=== PATIENT | female | born 1935 | race Caucasian/White ===

== ENCOUNTER 2019-02-26 19:54 | IRF | payer MEDICARE, OTHER, SELFPAY ==
--- NOTE | ~2019-02-26 | XR_ITS ---
XR chest 2V DATE: 03/13/2019 15:49 INDICATION: Cough. Confusion. TECHNIQUE: AP and lateral views COMPARISON: 02/25/2019 AP and lateral chest FINDINGS: Cardiomegaly. There is aortic calcification and mild unfolding. There are bibasilar infiltrates and/or atelectasis, right greater than left. There is mild elevation of the right leaf of the diaphragm. There is minimal if any pleural effusion. There is vertebra plan of a thoracolumbar vertebra with associated prominent callus. There is diffuse osteopenia. There are degenerative changes of the thoracic and lumbar spine. IMPRESSION: Bibasilar infiltrate and/atelectasis, right greater than left; there is improvement on th e left since 02/25/2019 Cardiomegaly Aortic atherosclerosis Reviewed, dictated and finalized at location B. CALENDER IMPRESSION: Bibasilar infiltrate and/atelectasis, right greater than left; ther e is improvement on the left since 02/25/2019 Cardiomegaly Aortic atherosclerosis
--- NOTE | ~2019-02-26 | XR_ITS ---
EXAMINATION: XR chest 2V DATE: 03/14/2019 14:59 INDICATION: Shortness of breath. TECHNIQUE: Frontal and lateral views of the chest were obtained. COMPARISON: Chest 2 views 03/13/2019 FINDINGS: The patient is rotated to her right. There are airspace opacities in the lower lung zones. No pleural effusion or pneumothorax. Cardiomegaly is noted. Surgical clips in the right upper quadran t are likely from cholecystectomy. There is a chronic compression fracture in lumbar spine. IMPRESSION: 1. Stable airspace opacities in the lower lung zones, consistent with atelectasis versus pneumonia. 2. Cardiomegaly. Reviewed, dictated and finalized at location A. O ELECTRONICS TECHNICIAN IMPRESSION: 1. Stable airspace opacities in the lower lung zones, consistent with atelectas is versus pneumonia. 2. Cardiomegaly.
[2019-02-26 17:50] VITALS: BP 112/56; PULSE 89; RESP 20; TEMP 36.5; O2SAT 96
[2019-02-26 18:52] VITALS: BMI 40.8
--- NOTE | 2019-02-26 19:07 | ADMGEN ---
This patient, Radha Salmeron, was admitted to [facility] Room 223-01. Patient/family oriented to hospital policies and general routines including ID bracelet, bed and alarms, visiting hours, pain management, procedures, bathroom and other care routines, personal items, smoking policy, room service/diet, and visiting hours. Valuables list has been completed. Information on how to activate the Rapid Response Team has been discussed. Patient/Family are encouraged to report perceived risks to care and to ask questions if they do not understand what they are told or what they should do.
[2019-02-26 20:45] VITALS: PULSE 89
[2019-02-26] MEDS: DOCUSATE SODIUM 100 MG CAPSULE PO (20:45)
[2019-02-26] MEDS: METOPROLOL TARTRATE 50 MG TAB 100 MG PO (20:45)
[2019-02-26] MEDS: ACETAMINOPHEN 325 MG TABLET PO (20:49)
[2019-02-26 21:21] VITALS: BP 111/62; PULSE 76; RESP 20; TEMP 36.6; O2SAT 96
[2019-02-26] MEDS: AMPICILLIN TRIHYDRATE 500 MG CAPSULE PO (21:52)
[2019-02-26 21:58] VITALS: PULSE 86; RESP 18
[2019-02-26 21:59] VITALS: PULSE 86; RESP 18; O2SAT 97
[2019-02-26] MEDS: ALBUTEROL SULFATE NEB 2.5 MG/0.5 ML INH 5 MG INHALATION (22:07)
[2019-02-26] MEDS: IPRATROPIUM BR 0.02% INH SOLN 0.5 MG/2.5 ML VIAL INHALATION (22:07)
[2019-02-27] VITALS (11 sets, daily range): BP systolic 122–127; BP diastolic 55–60; PULSE 76–101; RESP 16–20; TEMP 36.1–36.6; O2SAT 95–98; BMI 40.8
[2019-02-27] MEDS: ACETAMINOPHEN 325 MG TABLET PO ×2 (01:44→21:45)
[2019-02-27] MEDS: IPRATROPIUM BR 0.02% INH SOLN 0.5 MG/2.5 ML VIAL INHALATION ×3 (03:42→22:02)
[2019-02-27] MEDS: ALBUTEROL SULFATE NEB 2.5 MG/0.5 ML INH 5 MG INHALATION ×3 (03:42→22:03)
[2019-02-27 04:59] LABS: Basophils Percent Auto 0.3 % (0.2-1.2); Eosinophils Absolute Auto 0.4 K/mm3 (0-0.3); Eosinophils Percent Auto 4.1 % (0-4.4); Hematocrit 26.4 % (37.0-47.0); Hemoglobin 7.2 g/dL (12.0-15.0); Immature Granulocyte Absolute 0.03 K/mm3 (0.00-0.031); Immature Granulocyte Percent A 0.3 % (0-0.5); Lymphocytes Absolute Auto 1.82 K/mm3 (0.9-3.2); Lymphocytes Percent Auto 19.6 % (18.3-44.2); Mean Corpuscular HGB Conc 27.3 g/dl (32-36); Mean Corpuscular Hemoglobin 17.2 pg (26-34); Mean Corpuscular Volume 63.2 fl (80-100); Mean Platelet Volume 9.2 fl (7.4-10.4); Monocytes Absolute Auto 1.4 K/mm3 (0.1-0.6); Monocytes Percent Auto 15.3 % (2.6-8.5); Neutrophils Absolute Auto 5.6 K/mm3 (1.3-6.7); Neutrophils Percent Auto 60.4 % (45.5-73.1); Nucleated Red Blood Cells Absolute Auto 0.1 K/mm3 (0.0-0.012); Nucleated Red Blood Cells Perc 1.1 % (0.0-0.2); Platelet Count Result 168 k/mm3 (150-375); Red Blood Count 4.18 M/mm3 (4.2-5.4); Red Cell Distribution Width 21.5 % (11.5-14.5); White Blood Count 9.3 K/mm3 (4.5-10.0)
[2019-02-27 05:10] LABS: Blood Urea Nitrogen 46 mg/dL (7-17); Calcium 8.6 mg/dL (8.4-10.2); Carbon Dioxide 29 mmol/L (22-30); Chloride 91 mmol/L (98-107); Estimated CRCL calculation 29 ml/min; Estimated Glomerular Filt Rate 33; Glucose 151 mg/dL (65-105); Sodium 128 mmol/L (137-145)
[2019-02-27 05:11] LABS: Magnesium 1.5 mg/dL (1.6-2.3)
[2019-02-27 05:26] LABS: Platelet Estimate Adequate (Adequate)
[2019-02-27 05:27] LABS: Hypochromasia 2+ (NORMAL); Large Platelets Present; Ovalocytes 1+ (NORMAL)
[2019-02-27 06:53] LABS: Glucose Point of Care 135 (65-105)
[2019-02-27] MEDS: APIXABAN 5 MG TABLET PO ×2 (09:45→17:27)
[2019-02-27] MEDS: AMPICILLIN TRIHYDRATE 500 MG CAPSULE PO ×4 (09:45→21:39)
[2019-02-27] MEDS: DOCUSATE SODIUM 100 MG CAPSULE PO ×2 (09:47→21:39)
[2019-02-27] MEDS: ASPIRIN 81 MG ENTERIC TABLET PO (09:47)
[2019-02-27] MEDS: FUROSEMIDE 40 MG TABLET PO ×2 (09:48→17:27)
[2019-02-27] MEDS: INSULIN GLARGINE (*BKC) 100 UNITS/ML 10 UNITS SUB-Q (09:49)
[2019-02-27] MEDS: METOPROLOL TARTRATE 50 MG TAB 100 MG PO ×2 (09:50→21:39)
[2019-02-27] MEDS: PANTOPRAZOLE 40 MG TABLET PO (09:50)
[2019-02-27] MEDS: LORATADINE 10 MG TABLET PO (09:50)
[2019-02-27] MEDS: TOLNAFTATE 1% POWDER 45 GM BTL 1 APPLIC TOPICAL ×2 (09:51→17:28)
[2019-02-27] MEDS: POTASSIUM CHLORIDE 10 MEQ TABLET.ER 40 MEQ PO ×3 (10:41→17:28)
--- NOTE | 2019-02-27 11:47 | PCNSR ---
On 02/27/19, the student, Felicita Thompson, provided care and completed [facility] documentation on this patient. I have reviewed the student's documentation and agree with the findings.
[2019-02-27] MEDS: INSULIN ASPART (*BKC) 100 UNITS/ML SUB-Q (12:12)
[2019-02-27 12:13] LABS: Glucose Point of Care 205 (65-105)
--- NOTE | 2019-02-27 13:54 | RPD ---
INDIVIDUALIZED PLAN OF CARE FOR Radha Salmeron Brief Synthesis of Pre-Admission Screen, Post-Admission Evaluation and Therapy Evaluations: The patient presents to rehab with severe sepsis with septic shock. Comorbidities include leukocytosis, anemia, CKD, CARLY, septic shock, UTI, acute on chronic renal failure, acute hyperkalemia, atrial fibrillation with slow ventricular response, left ear impacted cerumen, cough, severe sepsis, GERD, hypertensive hear disease with heart failure, DMII, over active bladder, cardiomegaly, lactic acidosis, bradycardia, dehydration, hematuria.The patient requires physician services for neurology services, medical oversight, and coordination of care. The patient needs physician monitoring and treatment of acute kidney failure, hyperglycemia, hypertension, hematuria, bradycardia, CHF, atrial fibrillation with slow ventricular response, severe hyperkalemia, urinary retention, anemia, monitoring for adverse reactions to new medications, monitoring of infection, and pain control. The patient requires nursing services for frequent neuro checks, anticoagulation therapy, medication management and education, pressure relief and skin care management, monitoring of labs, bowel and bladder training, diabetes management and education, and fall/safety precautions Deficits include:ADLs, Balance, Endurance, Family Training/Education, Mobility, Pain Management, ROM, Safety, Strength, and Transfers Railroad Purchasing Agent/Case Management for: Discharge Planning and Patient/Family Counseling Physical Therapy: 5 days per week for 90 minutes. Treatments may include: Therapeutic Exercise, Gait Training, Neuromuscular Re-education, Transfer Training, Community Reintegration, Bed Mobility, Patient/Family Education, Wheelchair Mobility Group Therapy/Concurrent Therapy Rationales: -Improve attention span during functional activities in a distracted environment. -Enhance problem solving and/or adequate judgment skills during functional activities in a distracted environment. -Promote increased safety awareness in a distracted environment to reduce fall risk with functional tasks, transfers, and ambulation to allow a more safe, self-sufficient return to the home environment. -Improve dynamic balance skills to promote safety and independence with functional activities in a distracted environment for maximum gain. Occupational Therapy: 5 days per week for 90 minutes. Treatments may include: Therapeutic Exercise, Therapeutic Activity, Cognitive Training, Self-Care Transfer Training, Community Reintegration, Home Management, Patient/Family Education, Wheelchair Mobility Training, Energy Conservation Training Group Therapy/Concurrent Therapy Rationales: -Allow therapist to observe and teach generalization and carry-over of skills learned in individual therapy. -Enhance problem solving and sequencing skills during therapeutic activities in a distracted environment. -Promote increased safety awareness in a realistic setting to reduce fall risk with functional tasks due to visual and verbal distractions. -Increase functional level with ADLs, ADL transfers and use of adaptive equipment through therapeutic activities with others while promoting safety to allow a more safe, self-sufficient return home. Medical Prognosis: Good Anticipated Length of Stay: 10 days Rehab Goals: Eating Goal: 06-Independent Oral Hygiene Goal: 06-Independent Toileting Hygiene Goal: 06-Independent Shower/Bathe Self Goal: 04-Supervision or Touching Assistance Upper Body Dressing Goal: 06-Independent Lower Body Dressing Goal: 06-Independent Putting On/Taking Off Footwear Goal: 06-Independent Rolling Left and Right Goal: 06-Independent Sit to Lying Goal: 06-Independent Lying to Sitting on Side of Bed Goal: 06-Independent Sit to Stand Goal: 06-Independent Chair/[id number] Transfer Goal: 06-Independent Toilet Transfer Goal: 06-Independent Car Transfer Goal: 06-Independent Walk 10' Goal: 06-Indep
--- NOTE | 2019-02-27 15:13 | REHAB_ITS ---
DATE OF SERVICE: 02/27/2019 The patient's primary rehab impairment category is miscellaneous with etiological diagnosis of severe sepsis with septic shock. The patient was seen [id number] on 02/27/2019, at 8:30 am. HISTORY OF PRESENT ILLNESS: 83 years old right-handed female with the past medical history of 1. Right-sided congestive heart failure. 2. Valvular disease. 3. Chronic kidney disease. Presented to [facility] on February 20 with the complaints of weakness, generalized body aches, and cough. She was recently admitted in mid January for pneumonia and was discharged to [place] for rehab. She normally lives in the independent living at [place]. The patient's family reported a couple of days prior to this admission, the patient's cough worsened. She had a chest x-ray. There was also confusion with her potassium supplement and she was receiving 160 mEq twice a day. Upon admission, the patient's potassium was 7.3. Chest x-ray demonstrated persistent diffuse interstitial pattern in the lungs consistent with mild pulmonary edema versus chronic interstitial lung disease. Repeat chest x-ray on February 21 revealed worsened diffuse lung disease consistent with pulmonary edema and atelectasis versus pneumonia. The patient was admitted to ICU with severe sepsis and started on IV ceftriaxone and azithromycin. Cruise Consultant was consulted that held her diltiazem and metoprolol. Asbestos Shingle Roofer was consulted who ordered the renal ultrasound, it was negative for any abnormality. Her metoprolol was started on February 21 and she will be increased to have her home dose. On February 21, the patient passed for modified barium swallow and was on regular diabetic diet with thin liquids. Renal ultrasound revealed normal kidney sizes, but no hydronephrosis. Urine culture grew enterococcus and vancomycin was added. MRSA culture was negative. Blood cultures were negative x2. On February 22, IV antibiotics were changed to ampicillin, but will be transitioned to oral antibiotics to complete the treatment. The patient has obstructive sleep apnea, but was unable to wear CPAP due to claustrophobia. She used 2 L of oxygen at night per nasal cannula instead of CPAP. On 02/24/2019, her diuretics were restarted because of edema and pleural effusion. She was also placed on increased dose of potassium chloride temporarily, with readjustment as needed due to severe hyperkalemia. Cardiology recommended a strict monitoring of intake, output, BMP, and magnesium. Urine catheter was removed on 02/13/2019 but had to be reinserted that evening due to retention. Plan for voiding trial on TR. Creatinine remained stable, now at her baseline of 1.60. Medical complication included acute kidney failure, hyperglycemia, hypertension, hematuria, bradycardia, congestive heart failure, atrial fibrillation with slow ventricular response, severe hyperkalemia, urinary retention, and anemia. She was discharged to rehab on Eliquis and aspirin for DVT prophylaxis. Therapy was initiated at the Acute Care Facility and patient was transferred to us from [facility] on 02/26/2019. Surgery or fall: The patient has had no major surgery in the 100 days prior to admission. She has had falls in the past year, but has falls with injury in the past year as well. PAST MEDICAL HISTORY: Anxiety, chronic kidney disease, congestive heart failure, type 2 diabetes mellitus, DVT, GERD, hypertension, macular degeneration, peripheral neuropathy, pneumonia, obstructive sleep apnea, TIA, venous stasis ulcer. PAST SURGICAL HISTORY: Cholecystectomy, hysterectomy. SOCIAL HISTORY: The patient is , lives alone in [facility]. FAMILY HISTORY: Mother respiratory disorder at age 21. Father, cardiovascular disease.
--- NOTE | 2019-02-27 15:14 | REHAB_ITS ---
DATE OF SERVICE: The patient's primary rehab impairment category is miscellaneous with etiological diagnosis of severe sepsis with septic shock. HISTORY OF PRESENT ILLNESS: This 83 years old right-handed female with past medical history of right-sided congestive heart failure, valvular disease, chronic kidney disease, presented to [facility] on February 20, 2019, with the complaints of weakness, generalized body aches and cough. She was recently admitted in mid January for pneumonia and was discharged to [place] for the rehab. She normally lives in the independent living at [place]. The patient's family reported a couple of days prior to this particular admission, the patient's cough worsened and she had a chest x-ray at that particular time. There was also confusion about a potassium supplement, as she was receiving 160 mEq twice a day. Upon admission, her potassium was 7.3. Chest x-ray demonstrated persistent diffuse interstitial patterns in the lungs consistent with a mild pulmonary edema versus chronic interstitial lung disease. Repeat chest x-ray on February 21, documented worsening of the diffuse lung disease consistent with pulmonary edema and atelectasis versus pneumonia. The patient was admitted to intensive care unit with severe sepsis, started on IV ceftriaxone and azithromycin. Cardiologists were consulted and diltiazem was withheld along with the metoprolol. Informatics Pharmacist ordered a renal ultrasound, which was negative for any gross abnormality. Her metoprolol was restarted on February 21, and was intended to be increased to her home dose. On February 21, the patient passed her modified barium swallow and was placed on regular diabetic diet with thin liquids. Renal ultrasound revealed normal kidney size with no hydronephrosis. Urine culture grew enterococcus for that reason, vancomycin was added. MRSA culture was negative. Blood cultures were negative x2. On February 22, IV antibiotics were changed to ampicillin, but will be transitioned to oral antibiotics to complete her treatment course. The patient has obstructive sleep apnea, but was unable to wear CPAP due to claustrophobia. She uses 2 L of oxygen at night per nasal cannula instead of the CPAP. On February 24, 2019, her diuretic was restarted because of edema and pleural effusion. She was placed on increased dose of potassium chloride temporarily with readjustment as needed due to severe hyperkalemia. Cardiology recommended strict monitoring of intake, output, BMP, and magnesium. Urinary catheter was removed on February 23, 2019, but had to be reinserted that evening due to retention. Plan for a voiding trial in [facility], creatinine remained stable now at her baseline of 1.60. Medical complication included acute kidney failure, hyperglycemia, hypertension, hematuria, bradycardia, congestive heart failure, atrial fibrillation with slow ventricular response, severe hyperkalemia, urinary retention, anemia, and she was discharged to rehab on Eliquis and aspirin for DVT prophylaxis. Therapy was initiated on the acute care facility and the patient was transferred to us from [facility] on February 26, 2019. She has had no major surgeries in the last 100 days prior to admission. She has had falls in the past year and she had a fall with injury in the past year as well. PAST MEDICAL HISTORY: Anxiety, chronic kidney disease, congestive heart failure, type 2 diabetes mellitus, DVT, GERD, hypertension, macular degeneration, peripheral neuropathy, pneumonia, obstructive sleep apnea, TIA, and venous stasis ulcer. PAST SURGICAL HISTORY: Cholecystectomy and hysterectomy. SOCIAL HISTORY: She is , [place] alone in [place] apartment, [place]. FAMILY HISTORY: Mother, respiratory disorder at age 20. Father, cardiovascul
[2019-02-27 17:01] LABS: Glucose Point of Care 198 (65-105)
--- NOTE | 2019-02-27 17:11 | PM.PNCARD ---
Progress Note: A&P Assessment and Plan (1) Hypokalemia: Code(s): E87.6 - Hypokalemia Status: Acute Assessment and Plan: She was hyperkalemic on admission with renal failure. She is now hypokalemic with diuretics being restarted. Supplementing. Check BMP daily. Will supplement magnesium p.o.. If this does not correct her magnesium to approximately 2.0 and causes diarrhea will need to give her some IV magnesium. Check magnesium in the morning. (2) RIANA (acute kidney injury): Code(s): N17.9 - Acute kidney failure, unspecified Status: Acute Assessment and Plan: Renal function at baseline. Monitor daily with diuretics. Continue furosemide 40 mg b.i.d.. Metolazone 5 mg every 48 hours has been orded. This was her home dose. Closely monitory her renal function and fluid balance. (3) Atrial fibrillation: Code(s): I48.91 - Unspecified atrial fibrillation Status: Acute Assessment and Plan: Rate is controlled with Metoprolol 100 mg q.12 hours and diltiazem CD 120 mg daily. Anticoagulated with apixaban. (4) Congestive heart failure: Qualifiers: Heart failure type: diastolic Heart failure chronicity: chronic Qualified Code(s): I50.32 - Chronic diastolic (congestive) heart failure Code(s): I50.9 - Heart failure, unspecified Status: Acute Assessment and Plan: Chronic diastolic. Blood pressure at goal Cautious diuresis as above . Additional Plan Plan discussed with Dr Molina [id number] 02/27/2019 Subjective Date/time seen: 02/27/19 17:11 Interval history: Follow-up for: Bradycardia, hyperkalemia, CKD, debility diastolic heart failure atrial fibrillation Date of service: 02/27/2019 Subjective: Feeling okay today. No chest pain. Short of breath with exertional activities near baseline. Lightheaded with some activity but not all. No palpitations. Lower extremity edema. Difficulty keeping feet elevated. The recliner foot rest does not stay up. Review of Systems Constitutional: Constitutional: Reports fatigue and Reports weakness Eyes: Eyes: Denies blurry vision ENT: Reports Normal hearing present (Hard hearing), Denies epistaxis and Denies nasal discharge Cardiovascular: Cardiovascular: Denies chest pain, Reports pedal edema, Reports leg edema, Reports lightheadedness (Occasional) and Denies palpitations Respiratory: Respiratory: Denies cough, Reports dyspnea on exertion and Denies wheezing Gastrointestinal: Gastrointestinal: Denies abdominal pain, Denies nausea and Denies vomiting Genitourinary: Comments: Wilkerson catheter Musculoskeletal: Musculoskeletal: Denies back pain and Denies neck pain Integumentary/Breasts: Skin/Breast: Reports dry skin Neurologic: Reports abnormal gait (Related to weakness), Denies headache(s) and Denies numbness Psychiatric: Psychiatric: Denies anxiety Exam Const: General: comfortable and no acute distress Other: Up in chair HENMT: General nose exam: Normal nares present and no epistaxis Mouth: Yes moist mucous membranes Eyes: Sclera: sclerae normal Neck: Neck: supple Resp: Auscultation: diminished lung sounds bilateral in the lower lung gamble Cardio: Rate: regular rate Rhythm: abnormal rhythm Heart sounds: no murmurs Peripheral pulses: Peripheral pulses 2+ throughout GI: Inspection: obesity Auscultation: normal bowel sounds Urinary Catheter: Urinary Catheter: patent and draining and urine clear Skin: General skin exam: normal color and ecchymosis (Forearms) Neuro: Cognition (Neuro): normal cognition Speech: normal speech Extrem: Right lower extremity: edema (Legs are wrapped) Left lower extremity: edema (Legs are wrapped) Psych: Affect: normal affect Objective Data Vital Signs Vital Signs: Vital Signs - 24 hr 02/26/19 17:50
[2019-02-27] MEDS: MAGNESIUM OXIDE 400 MG TABLET PO (17:54)
[2019-02-28] VITALS (13 sets, daily range): BP systolic 124–126; BP diastolic 65–80; PULSE 82–97; RESP 16–20; TEMP 36.2–36.4; O2SAT 95–100
[2019-02-28] MEDS: IPRATROPIUM BR 0.02% INH SOLN 0.5 MG/2.5 ML VIAL INHALATION ×3 (03:24→19:30)
[2019-02-28] MEDS: ALBUTEROL SULFATE NEB 2.5 MG/0.5 ML INH 5 MG INHALATION ×3 (03:24→19:30)
[2019-02-28 05:16] LABS: Blood Urea Nitrogen 48 mg/dL (7-17); Calcium 8.6 mg/dL (8.4-10.2); Carbon Dioxide 30 mmol/L (22-30); Chloride 93 mmol/L (98-107); Estimated CRCL calculation 27 ml/min; Estimated Glomerular Filt Rate 31; Glucose 168 mg/dL (65-105); Sodium 133 mmol/L (137-145)
[2019-02-28 05:22] LABS: Magnesium 1.4 mg/dL (1.6-2.3)
[2019-02-28 07:08] LABS: Glucose Point of Care 148 (65-105)
[2019-02-28] MEDS: ASPIRIN 81 MG ENTERIC TABLET PO (08:18)
[2019-02-28] MEDS: POTASSIUM CHLORIDE 10 MEQ TABLET.ER 40 MEQ PO ×3 (08:18→17:36)
[2019-02-28] MEDS: AMPICILLIN TRIHYDRATE 500 MG CAPSULE PO ×4 (08:18→20:47)
[2019-02-28] MEDS: APIXABAN 5 MG TABLET PO ×2 (08:20→17:34)
[2019-02-28] MEDS: LORATADINE 10 MG TABLET PO (08:21)
[2019-02-28] MEDS: DOCUSATE SODIUM 100 MG CAPSULE PO ×2 (08:21→20:47)
[2019-02-28] MEDS: metOLazone 5 MG TABLET PO (08:21)
[2019-02-28] MEDS: FUROSEMIDE 40 MG TABLET PO ×2 (08:21→17:35)
[2019-02-28] MEDS: METOPROLOL TARTRATE 50 MG TAB 100 MG PO ×2 (08:22→20:47)
[2019-02-28] MEDS: MAGNESIUM OXIDE 400 MG TABLET PO ×3 (08:22→17:36)
[2019-02-28] MEDS: PANTOPRAZOLE 40 MG TABLET PO (08:23)
[2019-02-28] MEDS: TOLNAFTATE 1% POWDER 45 GM BTL 1 APPLIC TOPICAL ×2 (08:24→17:37)
[2019-02-28] MEDS: INSULIN GLARGINE (*BKC) 100 UNITS/ML 10 UNITS SUB-Q (08:25)
[2019-02-28 12:10] LABS: Glucose Point of Care 220 (65-105)
[2019-02-28] MEDS: OPTI-GEN TAB 1 TABLET PO (12:57)
[2019-02-28] MEDS: INSULIN ASPART (*BKC) 100 UNITS/ML SUB-Q ×2 (12:59→17:35)
--- NOTE | 2019-02-28 13:12 | WPDNEURORHBP ---
Subjective Date/time seen: 02/28/19 13:12 Interval history: patient is [id number] is here because of debility which is related to multiple factors which involved pneumonia anemia interstitial lung disease urinary tract infection and chronic kidney disease stage 3 she is being followed by the medicine aide for congestive heart failure and also protection agent from the chronic kidney disease medications were reviewed she was present for the team conference daughter AMBIKA was also part of the conference Patient is deconditioned and generally weak and fatigued due to multiple factors as mentioned above she is also hypokalemic which is being managed by our Cardiology colleague Review of Systems Review of Systems: All systems reviewed & are unremarkable except as noted in HPI and below Functional Status Ambulation Ability Ability to Ambulate 10 Feet: Contact Guard Ability to Ambulate 50 Feet With 2 Turns: Contact Guard Ambulation Assistive Devices: Walker, Wheeled Transfers Ability Ability to Transfer In/Out of Chair: Contact Guard Exam Const: General: comfortable and no acute distress HENMT: Other: patient is hard of hearing however able to communicate fairly well Eyes: General: appearance normal, both eyes and all related structures Other: she needs her glasses to read and write and she does well with glasses Neck: Neck: supple and no JVD Resp: Auscultation: rhonchi and diminished lung sounds Cardio: Rate: regular rate Rhythm: regular rhythm GI: GI Palp: Yes Soft to palpation Auscultation: normal bowel sounds Skin: General skin exam: normal color and no rashes or lesions noted Neuro: Other: mild memory deficit otherwise normal vitals examination, normal cranial examination, generalized decrease in his strength in both upper lower extremities needing assistance in the all the activities of daily living depressed reflexes positive Romberg negative Babinski sign Extrem: General: normal to inspection Objective Data Vital Signs Vital Signs: Vital Signs - 24 hr 02/27/19 14:00 02/27/19 14:07 02/27/19 22:00 Temperature 36.1 C L 36.4 C L Pulse Rate 88 76 101 H Pulse Rate [With Activity During Therapy Session] Respiratory Rate 16 20 19 Blood Pressure 124/60 127/55 L Pulse Oximetry 98 98 Pulse Oximetry [With Activity During Therapy Session] 02/27/19 22:03 02/27/19 22:08 02/27/19 22:09 Temperature Pulse Rate 92 92 88 Pulse Rate [With Activity During Therapy Session] Respiratory Rate 18 18 18 Blood Pressure Pulse Oximetry 96 Pulse Oximetry [With Activity During Therapy Session] 02/28/19 03:25 02/28/19 03:32 02/28/19 06:00 Temperature 36.2 C L Pulse Rate 83 84 84 Pulse Rate [With Activity During Therapy Session] Respiratory Rate 18 18 18 Blood Pressure 125/65 Pulse Oximetry 100 Pulse Oximetry [With Activity During Therapy Session] 02/28/19 08:22 02/28/19 11:10 Temperature Pulse Rate 84 Pulse Rate [With Activity During Therapy Session] 97 Respiratory Rate Blood Pressure Pulse Oximetry Pulse Oximetry [With Activity During Therapy Session] 95 Intake/Output Intake/Output: Intake & Output 02/25/19 02/26/19 02/27/19 02/28/19 23:59 23:59 23:59 23:59 Intake Total 3280 1000 Output Total 4175 900 Balance -895 100 Meds/Results Medications: Active Medications Generic Name Dose Route Start Last Admin Trade Name Freq PRN Reason Stop Dose Admin Acetaminophen 325 mg 02/26/19 19:50 02/27/19 21:45 Tylenol Tablet PO 325 mg Q4H PRN Administration Pain Albuterol 5 mg 02/26/19 20:00 02/28/19 09:35 Albuterol Sulf Neb 2.5mg/0.5ml INHALATION Not Given Q6HRT [facility] Ampicillin 500 mg 02/26/19 21:00 02/28/19 12:57 Ampicillin Trihydrate Capsule PO 03/02/19 17:01 500 mg QID LIO Administration Apixaban 5 mg 02/27/19 09:00 02/28/19 08:20 Eliquis PO 5 mg BID LIO Administration Aspirin 81 mg 02/27/19 09:00
--- NOTE | 2019-02-28 14:11 | PM.PNCARD ---
Progress Note: A&P Assessment and Plan (1) Hypokalemia: Code(s): E87.6 - Hypokalemia Status: Acute Assessment and Plan: She was hyperkalemic on admission with renal failure. She is now hypokalemic with diuretics being restarted. Supplementing. Check BMP daily. Will supplement magnesium p.o.. 400 mg t.i.d.. She will also need some IV magnesium. Her potassium will not normalize if her magnesium is not treated. Insert saline line and give magnesium 3 g IV piggyback. Check magnesium in the morning. (2) RIANA (acute kidney injury): Code(s): N17.9 - Acute kidney failure, unspecified Status: Acute Assessment and Plan: Renal function at baseline. Monitor daily with diuretics. Continue furosemide 40 mg b.i.d.. At this point I do not know if she truly needs the metolazone added. According to her intake and output her intake was 3280 cc. Limit fluid intake to 2 L. Hold metolazone at this point especially given her electrolytes. (3) Atrial fibrillation: Code(s): I48.91 - Unspecified atrial fibrillation Status: Acute Assessment and Plan: Rate is controlled with Metoprolol 100 mg q.12 hours and diltiazem CD 120 mg daily. Anticoagulated with apixaban. (4) Congestive heart failure: Qualifiers: Heart failure type: diastolic Heart failure chronicity: chronic Qualified Code(s): I50.32 - Chronic diastolic (congestive) heart failure Code(s): I50.9 - Heart failure, unspecified Status: Acute Assessment and Plan: Chronic diastolic. Blood pressure at goal Cautious diuresis as above . Additional Plan Given a list home medications by her family so that we are aware of what she was taking prior to admission. Will keep these in mind when we plan for discharge. Plan discussed with Dr Molina [id number] 02/28/2019 Subjective Date/time seen: 02/28/19 14:11 Interval history: Follow-up for: Bradycardia, hyperkalemia, CKD, debility diastolic heart failure atrial fibrillation Date of service: 02/28/2019 Subjective: Denied chest discomfort. Short of breath with exertional activities at her baseline. Lightheaded when she first stands. States that she stands in place before she takes the steps to make sure that she is steady. No palpitations. Unable to assess lower extremity edema as she can't em . Review of Systems Constitutional: Constitutional: Denies headache(s) and Reports weakness Eyes: Eyes: Denies blurry vision ENT: Denies headache(s), Reports hearing loss, Denies epistaxis, Denies nasal discharge and Denies neck pain Cardiovascular: Cardiovascular: Denies chest pain, Reports pedal edema, Reports leg edema, Reports lightheadedness (Occasional), Denies palpitations and Reports dyspnea on exertion Respiratory: Respiratory: Denies cough, Reports dyspnea on exertion and Denies wheezing Gastrointestinal: Gastrointestinal: Denies abdominal pain, Denies nausea and Denies vomiting Musculoskeletal: Musculoskeletal: Reports abnormal gait (Related to weakness), Denies back pain, Denies neck pain and Denies numbness Integumentary/Breasts: Skin/Breast: Reports dry skin Neurologic: Reports abnormal gait (Related to weakness), Denies headache(s), Denies numbness and Reports weakness Psychiatric: Psychiatric: Denies anxiety Endocrine: Endocrine: Reports fatigue and Denies palpitations Allergic/Immunologic: Allergic/Immunologic: Denies wheezing Exam Const: General: comfortable and no acute distress Other: Up in chair HENMT: General nose exam: Normal nares present and no epistaxis Mouth: Yes moist mucous membranes Eyes: Sclera: sclerae normal Neck: Neck: supple Resp: Auscultation: diminished lung sounds bilateral in the lower lung gamble Cardio: Rate: regular rate Rhythm: abnormal rhythm Heart sound
[2019-02-28] MEDS: MAGNESIUM SULFATE 3GM/D5W100ML 3 GM/100 ML BAG IVPB (15:08)
[2019-02-28 17:30] LABS: Glucose Point of Care 238 (65-105)
[2019-02-28 20:51] LABS: Glucose Point of Care 200 (65-105)
[2019-03-01] VITALS (16 sets, daily range): BP systolic 109–134; BP diastolic 58–76; PULSE 62–115; RESP 18–20; TEMP 36.1–36.5; O2SAT 92–100
[2019-03-01] MEDS: IPRATROPIUM BR 0.02% INH SOLN 0.5 MG/2.5 ML VIAL INHALATION ×4 (03:20→21:45)
[2019-03-01] MEDS: ALBUTEROL SULFATE NEB 2.5 MG/0.5 ML INH 5 MG INHALATION ×4 (03:20→21:46)
[2019-03-01 05:12] LABS: Blood Urea Nitrogen 51 mg/dL (7-17); Calcium 8.6 mg/dL (8.4-10.2); Carbon Dioxide 30 mmol/L (22-30); Chloride 93 mmol/L (98-107); Estimated CRCL calculation 29 ml/min; Estimated Glomerular Filt Rate 33; Glucose 162 mg/dL (65-105); Magnesium 1.9 mg/dL (1.6-2.3); Potassium 2.9 mmol/L (3.4-5.0); Sodium 133 mmol/L (137-145)
[2019-03-01 06:11] LABS: Glucose Point of Care 172 (65-105)
[2019-03-01] MEDS: PANTOPRAZOLE 40 MG TABLET PO (08:17)
[2019-03-01] MEDS: ASPIRIN 81 MG ENTERIC TABLET PO (08:17)
[2019-03-01] MEDS: POTASSIUM CHLORIDE 10 MEQ TABLET.ER 40 MEQ PO ×3 (08:17→17:28)
[2019-03-01] MEDS: METOPROLOL TARTRATE 50 MG TAB 100 MG PO ×2 (08:17→20:19)
[2019-03-01] MEDS: APIXABAN 5 MG TABLET PO ×2 (08:17→17:28)
[2019-03-01] MEDS: AMPICILLIN TRIHYDRATE 500 MG CAPSULE PO ×4 (08:17→20:19)
[2019-03-01] MEDS: LORATADINE 10 MG TABLET PO (08:18)
[2019-03-01] MEDS: OPTI-GEN TAB 1 TABLET PO (08:18)
[2019-03-01] MEDS: MAGNESIUM OXIDE 400 MG TABLET PO ×3 (08:18→17:28)
[2019-03-01] MEDS: TOLNAFTATE 1% POWDER 45 GM BTL 1 APPLIC TOPICAL ×2 (08:18→17:28)
[2019-03-01] MEDS: FUROSEMIDE 40 MG TABLET PO ×2 (08:18→17:28)
[2019-03-01] MEDS: DOCUSATE SODIUM 100 MG CAPSULE PO ×2 (08:18→20:19)
[2019-03-01] MEDS: INSULIN GLARGINE (*BKC) 100 UNITS/ML 10 UNITS SUB-Q (08:19)
[2019-03-01] MEDS: POTASSIUM CHLORIDE 20 MEQ PACKET (FOR LIQUID) PO ×3 (10:40→17:27)
--- NOTE | 2019-03-01 11:05 | PM.PNCARD ---
Progress Note: A&P Assessment and Plan (1) Hypokalemia: Code(s): E87.6 - Hypokalemia Status: Acute Assessment and Plan: She was hyperkalemic on admission with renal failure. She is now hypokalemic with diuretics being restarted. Supplementing. Check BMP daily. Will supplement magnesium p.o.. 400 mg t.i.d.. Supplemented with 3 g of magnesium IV yesterday. Magnesium 1.9 this morning. Continue supplementation with magnesium 400 mg t.i.d.. Will increase her potassium intake to 60 mg t.i.d. today. Recheck potassium this afternoon at 3:00 p.m.. Metolazone on hold for now. Continue her furosemide b.i.d. dosing. (2) RIANA (acute kidney injury): Code(s): N17.9 - Acute kidney failure, unspecified Status: Acute Assessment and Plan: Renal function at baseline. Monitor daily with diuretics. Continue furosemide 40 mg b.i.d.. Metolazone as above. Electrolytes as above. (3) Atrial fibrillation: Qualifiers: Atrial fibrillation type: permanent Qualified Code(s): I48.21 - Permanent atrial fibrillation Code(s): I48.91 - Unspecified atrial fibrillation Status: Acute Assessment and Plan: Rate is controlled with Metoprolol 100 mg q.12 hours and diltiazem CD 120 mg daily. Anticoagulated with apixaban. (4) Congestive heart failure: Qualifiers: Heart failure chronicity: chronic Heart failure type: diastolic Qualified Code(s): I50.32 - Chronic diastolic (congestive) heart failure Code(s): I50.9 - Heart failure, unspecified Status: Acute Assessment and Plan: Chronic diastolic. Mostly right-sided failure Blood pressure at goal Diuretics as above. She most likely will always have some lower extremity edema. Ideally her legs should be wrapped before she gets out of bed in the morning. Additional Plan List of home medications kept for review at discharge. Will order her some Eucerin cream for any of the dry skin areas that are itching. Plan discussed with Dr Molina [id number] 03/01/2019 Time Spent With Patient Time with patient: less than 15 minutes Subjective Date/time seen: 03/01/19 11:05 Interval history: Follow-up for: Bradycardia, hyperkalemia, CKD, debility diastolic heart failure atrial fibrillation Date of service: 03/01/2019 Subjective: Feeling better today. Slept fairly well however at 2:00 a.m. when she woke up she was almost out of her bed. Denied chest discomfort. Shortness of breath at baseline. No lightheadedness or palpitations. Lower extremity edema present. Has not had her shower today so legs are not yet wrapped.. Complaining of dry itchy skin. Review of Systems Constitutional: Constitutional: Reports fatigue (Improved), Denies headache(s) and Reports weakness (Improving) Eyes: Eyes: Denies blurry vision ENT: Denies headache(s), Reports hearing loss, Denies epistaxis, Denies nasal discharge and Denies neck pain Cardiovascular: Cardiovascular: Denies chest pain, Reports pedal edema, Reports leg edema, Reports lightheadedness (Occasional), Denies palpitations and Reports dyspnea on exertion Respiratory: Respiratory: Denies cough, Reports dyspnea on exertion and Denies wheezing Gastrointestinal: Gastrointestinal: Denies abdominal pain, Denies nausea and Denies vomiting Musculoskeletal: Musculoskeletal: Reports abnormal gait (Related to weakness), Denies back pain, Denies neck pain and Denies numbness Integumentary/Breasts: Skin/Breast: Reports dry skin Neurologic: Reports abnormal gait (Related to weakness), Denies headache(s), Denies numbness and Reports weakness Psychiatric: Psychiatric: Denies anxiety Endocrine: Endocrine: Reports fatigue and Denies palpitations Allergic/Immunologic: Allergic/Immunologic: Denies wheezing Exam Const: General: comfortable and no
[2019-03-01 11:25] LABS: Glucose Point of Care 227 (65-105)
[2019-03-01] MEDS: INSULIN ASPART (*BKC) 100 UNITS/ML SUB-Q (12:21)
--- NOTE | 2019-03-01 13:52 | WPDNEURORHBP ---
Subjective Date/time seen: 03/01/19 13:52 Interval history: patient has some bleeding at the site of the IV her veins are fragile and there is a little leak however not a significant change in the musculature of the arm where the IV site is her generalized weakness is improving she denies any headache chest pain shortness of breath Functional Status Ambulation Ability Ability to Ambulate 10 Feet: Standby Assistance Ability to Ambulate 50 Feet With 2 Turns: Contact Guard Ambulation Assistive Devices: Walker, Wheeled Transfers Ability Ability to Transfer In/Out of Chair: Standby Assistance Exam Const: General: comfortable and no acute distress HENMT: General nose exam: Normal nares present Mouth: Yes moist mucous membranes Eyes: General: appearance normal, both eyes and all related structures Neck: Neck: supple and no JVD Resp: Effort & Inspection: normal respiratory effort Auscultation: clear to auscultation bilaterally Cardio: Rate: regular rate Rhythm: regular rhythm GI: GI Palp: Yes Soft to palpation Percussion: Yes normal to percussion Auscultation: normal bowel sounds Skin: General skin exam: normal color and no rashes or lesions noted Neuro: Other: patient is improving in her strength in both upper lower extremity however still is weak and needing assistance in all the activities of daily living Extrem: Other: Koul bleeding from the site of the IV however nothing serious there is no evidence of Malone son clinical examination of DVT Objective Data Vital Signs Vital Signs: Vital Signs - 24 hr 02/28/19 14:00 02/28/19 19:40 02/28/19 19:46 Temperature 36.4 C L Pulse Rate 82 93 93 Respiratory Rate 16 20 18 Blood Pressure 124/75 Pulse Oximetry 97 96 02/28/19 19:50 02/28/19 20:47 02/28/19 21:24 Temperature 36.3 C L Pulse Rate 94 88 88 Respiratory Rate 20 18 Blood Pressure 126/80 Pulse Oximetry 98 03/01/19 03:20 03/01/19 03:31 03/01/19 06:00 Temperature 36.1 C L Pulse Rate 93 95 83 Respiratory Rate 20 20 18 Blood Pressure 120/65 Pulse Oximetry 100 03/01/19 07:56 03/01/19 07:58 03/01/19 08:03 Temperature Pulse Rate 62 100 Respiratory Rate 20 20 Blood Pressure Pulse Oximetry 93 03/01/19 08:17 Temperature Pulse Rate 100 Respiratory Rate Blood Pressure Pulse Oximetry Intake/Output Intake/Output: Intake & Output 02/26/19 02/27/19 02/28/19 03/01/19 23:59 23:59 23:59 23:59 Intake Total 3280 1600 1200 Output Total 4175 1650 1600 [facility] -895 -50 -400 Meds/Results Medications: Active Medications Generic Name Dose Route Start Last Admin Trade Name Freq PRN Reason Stop Dose Admin Acetaminophen 325 mg 02/26/19 19:50 02/27/19 21:45 Tylenol Tablet PO 325 mg Q4H PRN Administration Pain Albuterol 5 mg 02/26/19 20:00 03/01/19 07:55 Albuterol Sulf Neb 2.5mg/0.5ml INHALATION 5 mg Q6HRT LIO Administration Ampicillin 500 mg 02/26/19 21:00 03/01/19 12:19 Ampicillin Trihydrate Capsule PO 03/02/19 17:01 500 mg QID LIO Administration Apixaban 5 mg 02/27/19 09:00 03/01/19 08:17 Eliquis PO 5 mg BID LIO Administration Aspirin 81 mg 02/27/19 09:00 03/01/19 08:17 Aspirin Ec PO 81 mg DAILY LIO Administration Dextrose 12.5 gm 02/26/19 19:53 Dextrose 50% Syringe IV PUSH PRN PRN Hypoglycemia Protocol Diltiazem HCl 120 mg 02/27/19 09:00 03/01/19 08:18 Cardizem Cd PO 120 mg QAM LIO Administration Docusate Sodium 100 mg 02/26/19 21:00 03/01/19 08:18 Colace Cap PO 100 mg Q12HR LIO Administration Furosemide 40 mg 02/27/19 09:00 03/01/19 08:18 Lasix Tablet PO 40 mg BID LIO Administration Glucagon 1 mg 02/26/19 19:53 Glucagon For Inj IM PRN PRN Hypoglycemia Protocol Glucose 15 gm 02/26/19 19:53 Glutose 15 PO PRN PRN Hypoglycemia Protocol Guaifenesin 600 mg 02/26/19 19:50 02/28/19 01:4
[2019-03-01 15:36] LABS: Potassium 4.3 mmol/L (3.4-5.0)
[2019-03-01 16:34] LABS: Glucose Point of Care 188 (65-105)
[2019-03-01 20:39] LABS: Glucose Point of Care 220 (65-105)
[2019-03-01] MEDS: ACETAMINOPHEN 325 MG TABLET PO (22:34)
[2019-03-02] VITALS (10 sets, daily range): BP systolic 107–130; BP diastolic 54–68; PULSE 70–104; RESP 16–20; TEMP 36.3–36.6; O2SAT 95–98
[2019-03-02] MEDS: IPRATROPIUM BR 0.02% INH SOLN 0.5 MG/2.5 ML VIAL INHALATION ×2 (02:29→19:17)
[2019-03-02] MEDS: ALBUTEROL SULFATE NEB 2.5 MG/0.5 ML INH 5 MG INHALATION ×2 (02:29→19:17)
[2019-03-02 05:03] LABS: Blood Urea Nitrogen 52 mg/dL (7-17); Carbon Dioxide 28 mmol/L (22-30); Chloride 93 mmol/L (98-107); Estimated CRCL calculation 29 ml/min; Estimated Glomerular Filt Rate 33; Glucose 152 mg/dL (65-105); Potassium 3.2 mmol/L (3.4-5.0); Sodium 133 mmol/L (137-145)
[2019-03-02 05:11] LABS: Magnesium 1.8 mg/dL (1.6-2.3)
[2019-03-02 06:14] LABS: Glucose Point of Care 152 (65-105)
[2019-03-02] MEDS: OPTI-GEN TAB 1 TABLET PO (09:26)
[2019-03-02] MEDS: APIXABAN 5 MG TABLET PO ×2 (09:26→17:17)
[2019-03-02] MEDS: POTASSIUM CHLORIDE 10 MEQ TABLET.ER 40 MEQ PO ×3 (09:26→17:17)
[2019-03-02] MEDS: METOPROLOL TARTRATE 50 MG TAB 100 MG PO ×2 (09:27→20:29)
[2019-03-02] MEDS: PANTOPRAZOLE 40 MG TABLET PO (09:27)
[2019-03-02] MEDS: ASPIRIN 81 MG ENTERIC TABLET PO (09:28)
[2019-03-02] MEDS: MAGNESIUM OXIDE 400 MG TABLET PO ×3 (09:28→17:17)
[2019-03-02] MEDS: DOCUSATE SODIUM 100 MG CAPSULE PO ×2 (09:28→20:29)
[2019-03-02] MEDS: FUROSEMIDE 40 MG TABLET PO ×2 (09:28→17:17)
[2019-03-02] MEDS: AMPICILLIN TRIHYDRATE 500 MG CAPSULE PO ×3 (09:28→17:18)
[2019-03-02] MEDS: TOLNAFTATE 1% POWDER 45 GM BTL 1 APPLIC TOPICAL ×2 (09:29→17:16)
[2019-03-02] MEDS: LORATADINE 10 MG TABLET PO (09:29)
[2019-03-02] MEDS: EUCERIN CREAM 120 GM JAR 1 APPLIC TOPICAL (09:29)
[2019-03-02] MEDS: INSULIN GLARGINE (*BKC) 100 UNITS/ML 10 UNITS SUB-Q (09:31)
--- NOTE | 2019-03-02 12:09 | WPDNEURORHBP ---
Subjective Date/time seen: 03/02/19 12:09 Interval history: patient is here for debility and weakness because of multiple factors and she is improving overall when September specifically she says her strength and endurance is improving with the physical therapy and occupational therapy however still has some edema of the legs for which she has been followed by multiple physicians and the medication have been reviewed She denies any headache chest pain shortness of breath nausea or vomiting of fever Review of Systems Review of Systems: All systems reviewed & are unremarkable except as noted in HPI and below Functional Status Ambulation Ability Ability to Ambulate 10 Feet: Standby Assistance Ability to Ambulate 50 Feet With 2 Turns: Standby Assistance Ambulation Assistive Devices: Walker, Wheeled Transfers Ability Ability to Transfer In/Out of Chair: Standby Assistance Exam Const: General: no acute distress and in distress HENMT: Other: patient is significantly hard of hearing however able to communicate fairly well with the examiner being close to her ear Eyes: General: appearance normal, both eyes and all related structures Neck: Neck: supple and no JVD Resp: Effort & Inspection: normal respiratory effort Auscultation: clear to auscultation bilaterally Cardio: Rate: regular rate Rhythm: regular rhythm GI: GI Palp: Yes Soft to palpation Auscultation: normal bowel sounds Skin: General skin exam: normal color and no rashes or lesions noted Neuro: Other: improving strength in all spheres however 1+ reflexes negative Babinski sign positive Romberg needing still assistance in the activities of daily living Extrem: Other: 2+ edema of the lower extremities related to multiple factors being addressed by the multiple physicians involved as the follow-up has been noted and reviewed Psych: Mental Status: mental status grossly normal Objective Data Vital Signs Vital Signs: Vital Signs - 24 hr 03/01/19 13:30 03/01/19 14:00 03/01/19 15:30 Temperature 36.5 C Pulse Rate 82 115 H Pulse Rate [With Activity During Therapy Session] 67 Respiratory Rate 18 20 Blood Pressure 134/76 Pulse Oximetry 97 Pulse Oximetry [With Activity During Therapy Session] 92 03/01/19 15:33 03/01/19 15:43 03/01/19 20:19 Temperature Pulse Rate 113 H 90 Pulse Rate [With Activity During Therapy Session] Respiratory Rate 20 Blood Pressure Pulse Oximetry 96 Pulse Oximetry [With Activity During Therapy Session] 03/01/19 21:46 03/01/19 21:49 03/01/19 22:00 Temperature 36.5 C Pulse Rate 102 H 101 H Pulse Rate [With Activity During Therapy Session] Respiratory Rate 20 20 Blood Pressure 109/58 L Pulse Oximetry 95 97 Pulse Oximetry [With Activity During Therapy Session] 03/02/19 02:30 03/02/19 02:41 03/02/19 06:00 Temperature 36.6 C Pulse Rate 96 92 94 Pulse Rate [With Activity During Therapy Session] Respiratory Rate 20 20 18 Blood Pressure 114/68 Pulse Oximetry 97 Pulse Oximetry [With Activity During Therapy Session] 03/02/19 09:27 Temperature Pulse Rate 94 Pulse Rate [With Activity During Therapy Session] Respiratory Rate Blood Pressure Pulse Oximetry Pulse Oximetry [With Activity During Therapy Session] Intake/Output Intake/Output: Intake & Output 02/27/19 02/28/19 03/01/19 03/02/19 23:59 23:59 23:59 23:59 Intake Total 3280 1600 1940 560 Output Total 4173 1650 2050 1400 [facility] -895 -50 -110 -840 Meds/Results Medications: Active Medications Generic Name Dose Route Start Last Admin Trade Name Freq PRN Reason Stop Dose Admin Acetaminophen 325 mg 02/26/19 19:50 03/01/19 22:34 Tylenol Tablet PO 325 mg Q4H PRN Administration Pain Albuterol 5 mg 02/26/19 20:00 03/02/19 09:55 Albuterol Sulf Neb 2.5mg/0.5ml INHALATION Not Given Q6HRT [facility] Ampicillin 500 mg 02/26/19 21:00 03/02/19 09:28 Ampicillin Trihydrate Capsule PO 0
--- NOTE | 2019-03-02 15:42 | PM.PNCARD ---
Progress Note: A&P Assessment and Plan (1) Hypokalemia: Code(s): E87.6 - Hypokalemia Status: Acute Assessment and Plan: She was hyperkalemic on admission with renal failure. She is now hypokalemic with diuretics being restarted Continue magnesium 400 mg t.i.d... Potassium increased to 60 mg t.i.d. yesterday. Potassium 3.2 this morning. Was 4.3 yesterday afternoon. Will continue at 40 mg t.i.d. and continue to monitor her potassium level. Continue diuretics with furosemide at 40 mg p.o. b.i.d.. Continue to hold metolazone for now (2) RIANA (acute kidney injury): Code(s): N17.9 - Acute kidney failure, unspecified Status: Acute Assessment and Plan: Renal function at baseline. Continue to monitor as above. Diuretics as above. (3) Atrial fibrillation: Qualifiers: Atrial fibrillation type: permanent Qualified Code(s): I48.21 - Permanent atrial fibrillation Code(s): I48.91 - Unspecified atrial fibrillation Status: Acute Assessment and Plan: Rate is controlled with Metoprolol 100 mg q.12 hours and diltiazem CD 120 mg daily. Anticoagulated with apixaban. (4) Congestive heart failure: Qualifiers: Heart failure chronicity: chronic Heart failure type: diastolic Qualified Code(s): I50.32 - Chronic diastolic (congestive) heart failure Code(s): I50.9 - Heart failure, unspecified Status: Acute Assessment and Plan: Chronic diastolic. Mostly right-sided failure Blood pressure at goal Diuretics as above. She most likely will always have some lower extremity edema. Ideally her legs should be wrapped before she gets out of bed in the morning. Additional Plan Plan discussed with Dr Molina 1545 03/02/2019 Time Spent With Patient Time with patient: less than 15 minutes Subjective Date/time seen: 03/02/19 15:42 Interval history: Follow-up for: Bradycardia, hyperkalemia, CKD, debility diastolic heart failure atrial fibrillation Date of service: 03/02/2019 Subjective: Feeling pretty well again today. Denied chest discomfort. Short of breath with exertional activities again at her baseline. Difficulty with keeping her legs elevated as the position hurts her calves. Occasional lightheadedness. No palpitations. Review of Systems Constitutional: Constitutional: Reports fatigue (Improved), Denies headache(s) and Reports weakness (Improving) Eyes: Eyes: Denies blurry vision ENT: Denies headache(s), Reports hearing loss, Denies epistaxis, Denies nasal discharge and Denies neck pain Cardiovascular: Cardiovascular: Denies chest pain, Reports pedal edema, Reports leg edema, Reports lightheadedness (Occasional), Denies palpitations and Reports dyspnea on exertion Respiratory: Respiratory: Denies cough, Reports dyspnea on exertion and Denies wheezing Gastrointestinal: Gastrointestinal: Denies abdominal pain, Denies nausea and Denies vomiting Musculoskeletal: Musculoskeletal: Reports abnormal gait (Related to weakness), Denies back pain, Denies neck pain and Denies numbness Integumentary/Breasts: Skin/Breast: Reports dry skin Neurologic: Reports abnormal gait (Related to weakness), Denies headache(s), Denies numbness and Reports weakness (Improving) Psychiatric: Psychiatric: Denies anxiety Endocrine: Endocrine: Reports fatigue (Improved) and Denies palpitations Allergic/Immunologic: Allergic/Immunologic: Denies wheezing Exam Const: General: comfortable and no acute distress Other: Up in chair HENMT: General nose exam: Normal nares present and no epistaxis Mouth: Yes moist mucous membranes Eyes: Sclera: sclerae normal Neck: Neck: supple Resp: Auscultation: crackles bilateral at the base Cardio: Rate: regular rate Rhythm: abnormal rhythm Heart sounds: no murmurs Peripheral pulse
[2019-03-02 16:29] LABS: Glucose Point of Care 198 (65-105)
[2019-03-02 17:05] LABS: Glucose Point of Care 200 (65-105)
[2019-03-02] MEDS: ACETAMINOPHEN 325 MG TABLET PO (20:31)
[2019-03-02 21:42] LABS: Glucose Point of Care 243 (65-105)
[2019-03-03] VITALS (15 sets, daily range): BP systolic 116–130; BP diastolic 46–75; PULSE 58–105; RESP 16–24; TEMP 36.3–36.4; O2SAT 92–100
[2019-03-03] MEDS: ALBUTEROL SULFATE NEB 2.5 MG/0.5 ML INH 5 MG INHALATION ×4 (02:48→20:19)
[2019-03-03] MEDS: IPRATROPIUM BR 0.02% INH SOLN 0.5 MG/2.5 ML VIAL INHALATION ×4 (02:48→20:19)
[2019-03-03 05:16] LABS: Blood Urea Nitrogen 55 mg/dL (7-17); Calcium 9.1 mg/dL (8.4-10.2); Carbon Dioxide 27 mmol/L (22-30); Chloride 93 mmol/L (98-107); Estimated CRCL calculation 27 ml/min; Estimated Glomerular Filt Rate 31; Glucose 169 mg/dL (65-105); Potassium 3.4 mmol/L (3.4-5.0); Sodium 132 mmol/L (137-145)
[2019-03-03 05:18] LABS: Magnesium 1.9 mg/dL (1.6-2.3)
[2019-03-03 08:16] LABS: Glucose Point of Care 182 (65-105)
[2019-03-03] MEDS: MAGNESIUM OXIDE 400 MG TABLET PO ×2 (10:28→12:36)
[2019-03-03] MEDS: POTASSIUM CHLORIDE 10 MEQ TABLET.ER 40 MEQ PO ×3 (10:29→16:25)
[2019-03-03] MEDS: PANTOPRAZOLE 40 MG TABLET PO (10:30)
[2019-03-03] MEDS: APIXABAN 5 MG TABLET PO ×2 (10:30→16:25)
[2019-03-03] MEDS: ASPIRIN 81 MG ENTERIC TABLET PO (10:31)
[2019-03-03] MEDS: DOCUSATE SODIUM 100 MG CAPSULE PO ×2 (10:31→20:45)
[2019-03-03] MEDS: FUROSEMIDE 40 MG TABLET PO ×2 (10:31→16:25)
[2019-03-03] MEDS: LORATADINE 10 MG TABLET PO (10:32)
[2019-03-03] MEDS: METOPROLOL TARTRATE 50 MG TAB 100 MG PO ×2 (10:33→20:45)
[2019-03-03] MEDS: OPTI-GEN TAB 1 TABLET PO (10:33)
[2019-03-03] MEDS: EUCERIN CREAM 120 GM JAR 1 APPLIC TOPICAL (10:35)
[2019-03-03] MEDS: TOLNAFTATE 1% POWDER 45 GM BTL 1 APPLIC TOPICAL ×2 (10:35→16:25)
[2019-03-03] MEDS: INSULIN GLARGINE (*BKC) 100 UNITS/ML 10 UNITS SUB-Q (10:36)
[2019-03-03 12:07] LABS: Glucose Point of Care 247 (65-105)
[2019-03-03 12:23] LABS: Hematocrit 27.1 % (37.0-47.0); Hemoglobin 7.5 g/dL (12.0-15.0); Mean Corpuscular HGB Conc 27.7 g/dl (32-36); Mean Corpuscular Hemoglobin 17.5 pg (26-34); Mean Corpuscular Volume 63.2 fl (80-100); Mean Platelet Volume 9.8 fl (7.4-10.4); Platelet Count Result 196 k/mm3 (150-375); Red Blood Count 4.29 M/mm3 (4.2-5.4); Red Cell Distribution Width 21.6 % (11.5-14.5)
[2019-03-03] MEDS: INSULIN ASPART (*BKC) 100 UNITS/ML SUB-Q ×2 (12:35→17:08)
--- NOTE | 2019-03-03 12:36 | PM.PNCARD ---
Progress Note: A&P Assessment and Plan (1) Hypokalemia: Code(s): E87.6 - Hypokalemia Status: Acute Assessment and Plan: She was hyperkalemic on admission with renal failure. She is now hypokalemic with diuretics being restarted Decrease magnesium to 400 mg daily. Potassium 3.4 this morning. Continue at 40 mEq t.i.d. until potassium level equals 4.0 then adjustments will be made in the dosing. Continue diuretics with furosemide at 40 mg p.o. b.i.d.. Continue to hold metolazone for now Continue daily BMP. (2) RIANA (acute kidney injury): Code(s): N17.9 - Acute kidney failure, unspecified Status: Acute Assessment and Plan: Renal function at baseline. Continue to monitor as above. Diuretics as above. (3) Atrial fibrillation: Qualifiers: Atrial fibrillation type: permanent Qualified Code(s): I48.21 - Permanent atrial fibrillation Code(s): I48.91 - Unspecified atrial fibrillation Status: Acute Assessment and Plan: Rate is controlled with Metoprolol 100 mg q.12 hours and diltiazem CD 120 mg daily. Anticoagulated with apixaban. (4) Congestive heart failure: Qualifiers: Heart failure chronicity: chronic Heart failure type: diastolic Qualified Code(s): I50.32 - Chronic diastolic (congestive) heart failure Code(s): I50.9 - Heart failure, unspecified Status: Acute Assessment and Plan: Chronic diastolic. Mostly right-sided failure Blood pressure at goal Diuretics as above. She most likely will always have some lower extremity edema. Ideally her legs should be wrapped before she gets out of bed in the morning. Spoke with daughter Lynne by phone. She is concerned that she starting to retain fluid again. Needing a larger pants size to accommodate her thighs and hips. Also her weight has increased. Will restart metolazone 5 mg every other day and monitor her electrolytes closely. Additional Plan Plan discussed with Dr. Guevara Trejo 03/03/2019 Subjective Date/time seen: 03/03/19 12:00 Interval history: Follow-up for: Bradycardia, hyperkalemia, CKD, debility diastolic heart failure atrial fibrillation Date of service: 03/03/2019 Subjective: Tired. Did not sleep very well last night. Awakened at 2:00 a.m. for breathing treatment and then conducted back to sleep. Denied chest discomfort. Does have some abdominal muscle discomfort from coughing. Shortness of breath at her baseline. Lightheaded if gets up too quickly. Lower extremity edema which the staff has told her is worse however she does not notice any discomfort or tightness. Review of Systems Constitutional: Constitutional: Reports fatigue, Denies headache(s) and Reports weakness (Improving) Eyes: Eyes: Denies blurry vision ENT: Denies headache(s), Reports hearing loss, Reports epistaxis (No carlos blood however has dried blood when blow his nose in the morning), Denies nasal discharge and Denies neck pain Cardiovascular: Cardiovascular: Denies chest pain, Reports pedal edema, Reports leg edema, Reports lightheadedness (Occasional), Denies palpitations and Reports dyspnea on exertion Respiratory: Respiratory: Denies cough, Reports dyspnea on exertion and Denies wheezing Gastrointestinal: Gastrointestinal: Denies abdominal pain, Denies nausea and Denies vomiting Musculoskeletal: Musculoskeletal: Reports abnormal gait (Related to weakness), Denies back pain, Denies neck pain and Denies numbness Integumentary/Breasts: Skin/Breast: Reports dry skin Neurologic: Reports abnormal gait (Related to weakness), Denies headache(s), Denies numbness and Reports weakness (Improving) Psychiatric: Psychiatric: Denies anxiety Endocrine: Endocrine: Reports fatigue (Improved) and Denies palpitations Allergic/Immunologic: Allergic/Immunol
--- NOTE | 2019-03-03 13:16 | WPDNEURORHBP ---
Subjective Date/time seen: 03/03/19 13:16 Interval history: patient's endurance and generalized debility and weakness is improving her hypokalemia is also improving and likewise hypomagnesemia patient is being followed by the Cardiology team the notes were reviewed and the laboratory data were reviewed the patient does not have any lateralizing focal neurological deficit but generally weak and unable to perform the activities of daily living no chest pain no shortness of breath no headache nausea vomiting Review of Systems Review of Systems: All systems reviewed & are unremarkable except as noted in HPI and below Functional Status Ambulation Ability Ability to Ambulate 10 Feet: Standby Assistance Ability to Ambulate 50 Feet With 2 Turns: Standby Assistance Ability to Ambulate 150 Feet: Standby Assistance Ambulation Assistive Devices: Walker, Wheeled Transfers Ability Ability to Transfer In/Out of Chair: Standby Assistance Exam Const: General: comfortable and no acute distress HENMT: General nose exam: Normal nares present Mouth: Yes moist mucous membranes Eyes: General: appearance normal, both eyes and all related structures Neck: Neck: no JVD Resp: Effort & Inspection: normal respiratory effort Auscultation: clear to auscultation bilaterally Cardio: Rate: regular rate Rhythm: regular rhythm GI: GI Palp: Yes Soft to palpation Auscultation: normal bowel sounds Skin: General skin exam: normal color and no rashes or lesions noted Neuro: Other: patient's fatigue tiredness and generalized debility is improving however she does not have lateralizing focal motor deficit Extrem: Other: bilateral lower extremity edema is noted and has been followed by the Cardiology team Objective Data Vital Signs Vital Signs: Vital Signs - 24 hr 03/02/19 14:00 03/02/19 19:19 03/02/19 19:28 Temperature 36.3 C L Pulse Rate 89 79 84 Pulse Rate [At Rest After Therapy Session] Pulse Rate [With Activity During Therapy Session] Respiratory Rate 19 16 16 Blood Pressure 107/54 L Pulse Oximetry 96 95 Pulse Oximetry [At Rest After Therapy Session] Pulse Oximetry [With Activity During Therapy Session] 03/02/19 20:29 03/02/19 22:00 03/03/19 02:48 Temperature 36.6 C Pulse Rate 70 104 H 82 Pulse Rate [At Rest After Therapy Session] Pulse Rate [With Activity During Therapy Session] Respiratory Rate 18 18 Blood Pressure 130/68 Pulse Oximetry 98 97 Pulse Oximetry [At Rest After Therapy Session] Pulse Oximetry [With Activity During Therapy Session] 03/03/19 02:57 03/03/19 06:00 03/03/19 08:00 Temperature 36.3 C L Pulse Rate 81 94 89 Pulse Rate [At Rest After Therapy Session] Pulse Rate [With Activity During Therapy Session] Respiratory Rate 18 16 24 H Blood Pressure 116/57 L Pulse Oximetry 100 98 Pulse Oximetry [At Rest After Therapy Session] Pulse Oximetry [With Activity During Therapy Session] 03/03/19 10:11 03/03/19 10:20 03/03/19 10:33 Temperature Pulse Rate 79 89 89 Pulse Rate [At Rest After Therapy Session] Pulse Rate [With Activity During Therapy Session] Respiratory Rate 24 H 24 H Blood Pressure Pulse Oximetry 98 Pulse Oximetry [At Rest After Therapy Session] Pulse Oximetry [With Activity During Therapy Session] 03/03/19 10:50 Temperature Pulse Rate Pulse Rate [At Rest After Therapy Session] 77 Pulse Rate [With Activity During Therapy Session] 67 Respiratory Rate Blood Pressure Pulse Oximetry Pulse Oximetry [At Rest After Therapy Session] 92 Pulse Oximetry [With Activity During Therapy Session] 94 Intake/Output Intake/Output: Intake & Output 02/28/19 03/01/19 03/02/19 03/03/19 23:59 23:59 23:59 23:59 Intake Total 1600 1940 1890 590 Output Total 0 2049 2300 950 Balance -50 -110 -410 -360 Meds/Results Medications: Active Medications Generic Name Dose Route Start Last Admin Trade Name Freq PRN Reason Stop Dose
--- NOTE | 2019-03-03 14:35 | PCDIET ---
Nutrition Follow-Up Complete: Nutrition Diagnosis: Excessive sodium and fluid intake related to CHF as evidenced by reported regular home diet, Na (128), and present edema. Nutrition Goals: Patient will consume 100% of meals Goal met. Patient consuming 100% of most meals on diabetic diet with 2L fluid restriction. Previously discussed low sodium diet with Dr. Pretty. Verbal order to maintain diabetic restriction, as patient does not have low sodium diet at halfway. Last recorded weight is 104.6 kg. Recommend obtaining new weight. Bowel Motility: Small BM documented on 03/02/19. Labs Reviewed: Glu (182), BUN (55), Cr (1.6), Na (132) Meds Noted: Albuterol, Colace, Lasix, Novolog, Lantus, Mag-Ox, Ocuvite, Protonix, KCl Additional Notes: LE weeping and edematous; left toe with blister. No pressure ulcers documented. Will continue to monitor with same goal. Nutrition Monitoring and Evaluation: Will follow up in 7 days.
[2019-03-03] MEDS: metOLazone 5 MG TABLET PO (16:24)
[2019-03-03 17:07] LABS: Glucose Point of Care 248 (65-105)
[2019-03-04] VITALS (10 sets, daily range): BP systolic 107–117; BP diastolic 47–61; PULSE 56–97; RESP 18–20; TEMP 36.2–36.6; O2SAT 92–99
[2019-03-04 05:17] LABS: Blood Urea Nitrogen 56 mg/dL (7-17); Carbon Dioxide 25 mmol/L (22-30); Chloride 94 mmol/L (98-107); Estimated CRCL calculation 29 ml/min; Estimated Glomerular Filt Rate 33; Glucose 302 mg/dL (65-105); Magnesium 1.8 mg/dL (1.6-2.3); Potassium 3.4 mmol/L (3.4-5.0); Sodium 132 mmol/L (137-145)
[2019-03-04 06:53] LABS: Glucose Point of Care 331 (65-105)
[2019-03-04] MEDS: IPRATROPIUM BR 0.02% INH SOLN 0.5 MG/2.5 ML VIAL INHALATION ×3 (07:37→21:29)
[2019-03-04] MEDS: ALBUTEROL SULFATE NEB 2.5 MG/0.5 ML INH 5 MG INHALATION ×3 (07:37→21:29)
[2019-03-04] MEDS: APIXABAN 5 MG TABLET PO ×2 (08:18→17:03)
[2019-03-04] MEDS: POTASSIUM CHLORIDE 10 MEQ TABLET.ER 40 MEQ PO ×3 (08:18→17:02)
[2019-03-04] MEDS: METOPROLOL TARTRATE 50 MG TAB 100 MG PO ×2 (08:19→21:42)
[2019-03-04] MEDS: OPTI-GEN TAB 1 TABLET PO (08:19)
[2019-03-04] MEDS: DOCUSATE SODIUM 100 MG CAPSULE PO ×2 (08:20→21:41)
[2019-03-04] MEDS: ASPIRIN 81 MG ENTERIC TABLET PO (08:22)
[2019-03-04] MEDS: PANTOPRAZOLE 40 MG TABLET PO (08:22)
[2019-03-04] MEDS: FUROSEMIDE 40 MG TABLET PO ×2 (08:22→17:03)
[2019-03-04] MEDS: LORATADINE 10 MG TABLET PO (08:22)
[2019-03-04] MEDS: MAGNESIUM OXIDE 400 MG TABLET PO (08:22)
[2019-03-04] MEDS: INSULIN ASPART (*BKC) 100 UNITS/ML SUB-Q ×3 (08:25→17:06)
[2019-03-04] MEDS: INSULIN GLARGINE (*BKC) 100 UNITS/ML 10 UNITS SUB-Q (11:33)
[2019-03-04] MEDS: TOLNAFTATE 1% POWDER 45 GM BTL 1 APPLIC TOPICAL ×2 (11:35→17:10)
[2019-03-04] MEDS: EUCERIN CREAM 120 GM JAR 1 APPLIC TOPICAL (11:35)
[2019-03-04 11:53] LABS: Glucose Point of Care 234 (65-105)
--- NOTE | 2019-03-04 12:29 | PM.PNCARD ---
Progress Note: A&P Assessment and Plan (1) Hypokalemia: Code(s): E87.6 - Hypokalemia Status: Acute Assessment and Plan: She was hyperkalemic on admission with renal failure. She is now hypokalemic with diuretics being restarted Decrease magnesium to 400 mg daily. Potassium 3.4 this morning. Continue at 40 mEq t.i.d. until potassium level equals 4.0 then adjustments will be made in the dosing. Continue diuretics with furosemide at 40 mg p.o. b.i.d.. Metolazone 2.5 mg p.o. x1 now. Potassium chloride 40 mEq p.o. x1. Magnesium 2 g IV x1. Continue daily BMP. (2) RIANA (acute kidney injury): Code(s): N17.9 - Acute kidney failure, unspecified Status: Acute Assessment and Plan: Renal function at baseline. Continue to monitor as above. Diuretics as above. (3) Atrial fibrillation: Qualifiers: Atrial fibrillation type: permanent Qualified Code(s): I48.21 - Permanent atrial fibrillation Code(s): I48.91 - Unspecified atrial fibrillation Status: Acute Assessment and Plan: Rate is controlled with Metoprolol 100 mg q.12 hours and diltiazem CD 120 mg daily. Anticoagulated with apixaban. (4) Congestive heart failure: Qualifiers: Heart failure type: diastolic Heart failure chronicity: chronic Qualified Code(s): I50.32 - Chronic diastolic (congestive) heart failure Code(s): I50.9 - Heart failure, unspecified Status: Acute Assessment and Plan: Chronic diastolic. Mostly right-sided failure Blood pressure at goal Diuretics as above. She most likely will always have some lower extremity edema. Ideally her legs should be wrapped before she gets out of bed in the morning. Subjective Date/time seen: 03/04/19 12:29 Interval history: Follow-up for: Bradycardia, hyperkalemia, CKD, debility diastolic heart failure atrial fibrillation Date of service: 03/04/2019: Increasingly frustrated about being here. She denies any chest pain or shortness of breath. Did not ambulate well today. Swelling is still present and she thinks is worsening. She did diurese well yesterday Review of Systems Constitutional: Constitutional: Reports fatigue (Improved), Denies headache(s) and Reports weakness (Improving) Eyes: Eyes: Denies blurry vision ENT: Denies headache(s), Reports hearing loss, Reports epistaxis (No carlos blood however has dried blood when blow his nose in the morning), Denies nasal discharge and Denies neck pain Cardiovascular: Cardiovascular: Denies chest pain, Reports pedal edema, Reports leg edema, Reports lightheadedness (Occasional), Denies palpitations and Reports dyspnea on exertion Respiratory: Respiratory: Denies cough, Reports dyspnea on exertion and Denies wheezing Gastrointestinal: Gastrointestinal: Denies abdominal pain, Denies nausea and Denies vomiting Musculoskeletal: Musculoskeletal: Reports abnormal gait (Related to weakness), Denies back pain, Denies neck pain and Denies numbness Integumentary/Breasts: Skin/Breast: Reports dry skin Neurologic: Reports abnormal gait (Related to weakness), Denies headache(s), Denies numbness and Reports weakness (Improving) Psychiatric: Psychiatric: Denies anxiety Endocrine: Endocrine: Reports fatigue (Improved) and Denies palpitations Allergic/Immunologic: Allergic/Immunologic: Denies wheezing Exam Const: General: comfortable and no acute distress Other: Up in chair HENMT: General nose exam: Normal nares present and no epistaxis Mouth: Yes moist mucous membranes Eyes: Sclera: sclerae normal Neck: Neck: supple Resp: Auscultation: crackles bilateral at the base Cardio: Rate: regular rate Rhythm: abnormal rhythm Heart sounds: no murmurs Peripheral pulses: Peripheral pulses 2+ throughout GI: Inspection: obesity Auscultation: normal bowel sounds Urinary
--- NOTE | 2019-03-04 12:31 | PC.NURSE ---
IV to LFA #22 angiocath. Dressing occlusive,dry and intact. Pt.'s family states has been in place x2 days. Flushes easily.
[2019-03-04] MEDS: MAGNESIUM SULF 2 GM/WATER 50ML 2 GM/50 ML BAG IVPB (12:55)
[2019-03-04] MEDS: metOLazone 2.5 MG TABLET PO (12:56)
--- NOTE | 2019-03-04 15:33 | WPDNEURORHBP ---
Subjective Date/time seen: 03/04/19 15:33 Interval history: patient is relatively fatigue and tired and has edema of the lower extremities wearing the SCD the notes from the cardiology reviewed the patient has been restarted on the diuretics and receiving extra magnesium IV as per cardiac team she denies any headache she remains [id number] and does not have any lateralizing focal motor deficit deficit and weakness remains fluctuating with the status of her congestive heart failure and the metabolic errors including hypokalemia and hypomagnesemia Review of Systems Review of Systems: All systems reviewed & are unremarkable except as noted in HPI and below Functional Status Ambulation Ability Ability to Ambulate 10 Feet: Standby Assistance Ability to Ambulate 50 Feet With 2 Turns: Standby Assistance Ability to Ambulate 150 Feet: Standby Assistance Ambulation Assistive Devices: Walker, Wheeled Transfers Ability Ability to Transfer In/Out of Chair: Standby Assistance Exam Const: General: comfortable and no acute distress HENMT: General nose exam: Normal nares present Mouth: Yes moist mucous membranes Eyes: General: appearance normal, both eyes and all related structures Neck: Neck: supple and no JVD Resp: Effort & Inspection: normal respiratory effort ( slightly decreased effort) Auscultation: clear to auscultation bilaterally ( decreased breath sounds bilaterally) and diminished lung sounds Cardio: Rate: regular rate Rhythm: regular rhythm GI: GI Palp: Yes Soft to palpation Auscultation: normal bowel sounds Skin: General skin exam: normal color and no rashes or lesions noted Neuro: Other: patient remains awake and alert with mild fluctuating short-term memory deficit without any lateralizing focal motor deficit has normal cranial examination and slight decreased sensation in the lower extremities with 1+ reflexes Extrem: Other: edema of the lower extremities about 3+ without any calf tenderness and negative Luis Daniel signs Psych: Mental Status: mental status grossly normal Objective Data Vital Signs Vital Signs: Vital Signs - 24 hr 03/03/19 20:20 03/03/19 20:27 03/03/19 20:30 Temperature 36.4 C Pulse Rate 89 88 92 Respiratory Rate 20 18 20 Blood Pressure 130/75 Pulse Oximetry 95 03/03/19 20:45 03/04/19 06:00 03/04/19 07:35 Temperature 36.4 C Pulse Rate 80 97 Respiratory Rate 18 Blood Pressure 117/47 L Pulse Oximetry 98 92 03/04/19 07:38 03/04/19 07:46 03/04/19 13:56 Temperature Pulse Rate 92 92 82 Respiratory Rate 18 18 18 Blood Pressure Pulse Oximetry 03/04/19 14:04 Temperature Pulse Rate 80 Respiratory Rate 18 Blood Pressure Pulse Oximetry Intake/Output Intake/Output: Intake & Output 03/01/19 03/02/19 03/03/19 03/04/19 23:59 23:59 23:59 23:59 Intake Total 1940 1890 1430 240 Output Total 2049 2300 2550 1350 Balance -110 -410 -1120 -1110 Meds/Results Medications: Active Medications Generic Name Dose Route Start Last Admin Trade Name Freq PRN Reason Stop Dose Admin Acetaminophen 325 mg 02/26/19 19:50 03/02/19 20:31 Tylenol Tablet PO 325 mg Q4H PRN Administration Pain Albuterol 5 mg 02/26/19 20:00 03/04/19 13:55 Albuterol Sulf Neb 2.5mg/0.5ml INHALATION 5 mg Q6HRT LIO Administration Apixaban 5 mg 02/27/19 09:00 03/04/19 08:18 Eliquis PO 5 mg BID LIO Administration Aspirin 81 mg 02/27/19 09:00 03/04/19 08:22 Aspirin Ec PO 81 mg DAILY LIO Administration Dextrose 12.5 gm 02/26/19 19:53 Dextrose 50% Syringe IV PUSH PRN PRN Hypoglycemia Protocol Diltiazem HCl 120 mg 02/27/19 09:00 03/04/19 08:22 Cardizem Cd PO 120 mg QAM LIO Administration Docusate Sodium 100 mg 02/26/19 21:00 03/04/19 08:20 Colace Cap PO 100 mg Q12HR LIO Administration Furosemide 40 mg 02/27/19 09:00 03/04/19 08:22 Lasix Tablet PO 40 mg BID LIO Administration Gl
[2019-03-04 16:59] LABS: Glucose Point of Care 320 (65-105)
[2019-03-04] MEDS: POTASSIUM CHLORIDE 20 MEQ TABLET 40 MEQ PO (17:36)
[2019-03-05] MEDS: ACETAMINOPHEN 325 MG TABLET PO ×2 (01:25→23:22)
[2019-03-05 02:30] VITALS: O2SAT 92
[2019-03-05 05:17] LABS: Blood Urea Nitrogen 54 mg/dL (7-17); Calcium 9.3 mg/dL (8.4-10.2); Carbon Dioxide 28 mmol/L (22-30); Chloride 95 mmol/L (98-107); Estimated CRCL calculation 27 ml/min; Estimated Glomerular Filt Rate 31; Glucose 269 mg/dL (65-105); Potassium 3.6 mmol/L (3.4-5.0); Sodium 133 mmol/L (137-145)
[2019-03-05 06:00] VITALS: BP 109/54; PULSE 100; RESP 20; TEMP 36.2; O2SAT 100
[2019-03-05 06:33] LABS: Glucose Point of Care 272 (65-105)
[2019-03-05] MEDS: metOLazone 5 MG TABLET PO (08:22)
[2019-03-05] MEDS: DOCUSATE SODIUM 100 MG CAPSULE PO ×2 (08:22→20:39)
[2019-03-05] MEDS: FUROSEMIDE 40 MG TABLET PO ×2 (08:22→18:31)
[2019-03-05] MEDS: LORATADINE 10 MG TABLET PO (08:22)
[2019-03-05] MEDS: PANTOPRAZOLE 40 MG TABLET PO (08:22)
[2019-03-05] MEDS: APIXABAN 5 MG TABLET PO ×2 (08:22→18:31)
[2019-03-05] MEDS: ASPIRIN 81 MG ENTERIC TABLET PO (08:22)
[2019-03-05] MEDS: OPTI-GEN TAB 1 TABLET PO (08:22)
[2019-03-05 08:23] VITALS: PULSE 94
[2019-03-05] MEDS: MAGNESIUM OXIDE 400 MG TABLET PO (08:23)
[2019-03-05] MEDS: METOPROLOL TARTRATE 50 MG TAB 100 MG PO ×2 (08:23→20:38)
[2019-03-05] MEDS: POTASSIUM CHLORIDE 10 MEQ TABLET.ER 40 MEQ PO ×3 (08:23→18:28)
[2019-03-05] MEDS: TOLNAFTATE 1% POWDER 45 GM BTL 1 APPLIC TOPICAL ×2 (08:24→18:30)
[2019-03-05] MEDS: EUCERIN CREAM 120 GM JAR 1 APPLIC TOPICAL (08:24)
[2019-03-05] MEDS: INSULIN ASPART (*BKC) 100 UNITS/ML SUB-Q ×3 (08:27→18:33)
[2019-03-05] MEDS: INSULIN GLARGINE (*BKC) 100 UNITS/ML 10 UNITS SUB-Q (08:28)
--- NOTE | 2019-03-05 09:51 | PM.PNCARD ---
Progress Note: A&P Assessment and Plan (1) Hypokalemia: Code(s): E87.6 - Hypokalemia Status: Acute Assessment and Plan: She was hyperkalemic on admission with renal failure. She is now hypokalemic with diuretics being restarted Decrease magnesium to 400 mg daily. Potassium 3.4 this morning. Continue at 40 mEq t.i.d. until potassium level equals 4.0 then adjustments will be made in the dosing. Continue diuretics with furosemide at 40 mg p.o. b.i.d.. She is due for her dose of Metolazone today. Extra KCl 40 meq po x 1 Continue daily BMP. (2) RIANA (acute kidney injury): Code(s): N17.9 - Acute kidney failure, unspecified Status: Acute Assessment and Plan: Renal function at baseline. Continue to monitor as above. Diuretics as above. (3) Atrial fibrillation: Qualifiers: Atrial fibrillation type: permanent Qualified Code(s): I48.21 - Permanent atrial fibrillation Code(s): I48.91 - Unspecified atrial fibrillation Status: Acute Assessment and Plan: Rate is controlled with Metoprolol 100 mg q.12 hours and diltiazem CD 120 mg daily. Anticoagulated with apixaban. (4) Congestive heart failure: Qualifiers: Heart failure type: diastolic Heart failure chronicity: chronic Qualified Code(s): I50.32 - Chronic diastolic (congestive) heart failure Code(s): I50.9 - Heart failure, unspecified Status: Acute Assessment and Plan: Chronic diastolic. Mostly right-sided failure Blood pressure at goal Diuretics as above. She most likely will always have some lower extremity edema. Ideally her legs should be wrapped before she gets out of bed in the morning. Subjective Date/time seen: 03/05/19 09:51 Interval history: Follow-up for: Bradycardia, hyperkalemia, CKD, debility diastolic heart failure atrial fibrillation Date of service: 03/05/2019: She thinks her legs are slightly less swollen. She denies any chest pain or shortness of breath. She did diurese well yesterday Review of Systems Constitutional: Constitutional: Reports fatigue (Improved), Denies headache(s) and Reports weakness (Improving) Eyes: Eyes: Denies blurry vision ENT: Denies headache(s), Reports hearing loss, Reports epistaxis (No carlos blood however has dried blood when blow his nose in the morning), Denies nasal discharge and Denies neck pain Cardiovascular: Cardiovascular: Denies chest pain, Reports pedal edema, Reports leg edema, Reports lightheadedness (Occasional), Denies palpitations and Reports dyspnea on exertion Respiratory: Respiratory: Denies cough, Reports dyspnea on exertion and Denies wheezing Gastrointestinal: Gastrointestinal: Denies abdominal pain, Denies nausea and Denies vomiting Musculoskeletal: Musculoskeletal: Reports abnormal gait (Related to weakness), Denies back pain, Denies neck pain and Denies numbness Integumentary/Breasts: Skin/Breast: Reports dry skin Neurologic: Reports abnormal gait (Related to weakness), Denies headache(s), Denies numbness and Reports weakness (Improving) Psychiatric: Psychiatric: Denies anxiety Endocrine: Endocrine: Reports fatigue (Improved) and Denies palpitations Allergic/Immunologic: Allergic/Immunologic: Denies wheezing Exam Const: General: comfortable and no acute distress Other: Up in chair HENMT: General nose exam: Normal nares present and no epistaxis Mouth: Yes moist mucous membranes Eyes: Sclera: sclerae normal Neck: Neck: supple Resp: Auscultation: crackles bilateral at the base Cardio: Rate: regular rate Rhythm: abnormal rhythm Heart sounds: no murmurs Peripheral pulses: Peripheral pulses 2+ throughout GI: Inspection: obesity Auscultation: normal bowel sounds Urinary Catheter: Urinary Catheter: patent and draining, urine clear and other (Clamping Wilkerson for bladder
[2019-03-05] MEDS: POTASSIUM CHLORIDE 20 MEQ TABLET 40 MEQ PO (11:13)
[2019-03-05 11:56] LABS: Glucose Point of Care 261 (65-105)
[2019-03-05 14:00] VITALS: BP 116/65; PULSE 94; RESP 20; TEMP 36.2; O2SAT 95
--- NOTE | 2019-03-05 14:04 | WPDNEURORHBP ---
Subjective Date/time seen: 03/05/19 14:04 Interval history: this 83-year-old woman is here on our acute rehab floor because of debility and weakness due to multiple reason as explained in the main history and physical examination She is being followed by Cardiology for congestive heart failure along also with multiple metabolic errors Patient has generalized weakness and endurance has improved she denies any chest pain does have mild shortness of breath with the therapy no fever chills sore throat Review of Systems Constitutional: Constitutional: Reports no additional constitutional complaints Eyes: Eyes: Reports no additional eye complaints ENT: Reports system reviewed and no additional complaints, except as documented Comments: she is hard of hearing but on its baseline Cardiovascular: Cardiovascular: Reports no additional cardiovascular complaints Respiratory: Respiratory: Reports no additional respiratory complaints Gastrointestinal: Gastrointestinal: Reports no additional gastrointestinal complaints Genitourinary: Genitourinary: Reports no additional female genitourinary complaints Musculoskeletal: Musculoskeletal: Reports no additional musculoskeletal complaints Integumentary/Breasts: Skin/Breast: Reports system reviewed and no additional complaints, except as docu Neurologic: Comments: the generalized weakness and debility is improving Psychiatric: Psychiatric: Reports no additional psychiatric complaints Functional Status Ambulation Ability Ability to Ambulate 10 Feet: Standby Assistance Ability to Ambulate 50 Feet With 2 Turns: Standby Assistance Ability to Ambulate 150 Feet: Standby Assistance Ambulation Assistive Devices: Walker, Wheeled Transfers Ability Ability to Transfer In/Out of Chair: Standby Assistance Exam Const: General: comfortable and no acute distress HENMT: General nose exam: Normal nares present Mouth: Yes moist mucous membranes Eyes: General: appearance normal, both eyes and all related structures Neck: Neck: supple and no JVD Resp: Effort & Inspection: normal respiratory effort Auscultation: clear to auscultation bilaterally Cardio: Rate: regular rate Rhythm: regular rhythm GI: GI Palp: Yes Soft to palpation Auscultation: normal bowel sounds Skin: General skin exam: normal color and no rashes or lesions noted Neuro: Other: the generalized weakness and debility is improving reflexes remains 1+ with negative Babinski sign fairly decent mental status examination and also normal cranial nerve examination Extrem: Other: bilateral lower extremity edema is less Psych: Mental Status: mental status grossly normal Objective Data Vital Signs Vital Signs: Vital Signs - 24 hr 03/04/19 21:30 03/04/19 21:42 03/04/19 21:48 Temperature 36.6 C Pulse Rate 80 78 79 Respiratory Rate 18 20 Blood Pressure 107/55 L Pulse Oximetry 99 03/05/19 02:30 03/05/19 06:00 03/05/19 08:23 Temperature 36.2 C L Pulse Rate 100 94 Respiratory Rate 20 Blood Pressure 109/54 L Pulse Oximetry 92 100 Intake/Output Intake/Output: Intake & Output 03/02/19 03/03/19 03/04/19 03/05/19 23:59 23:59 23:59 23:59 Intake Total 1890 1430 240 240 Output Total 2300 2550 2700 1100 Banner -410 -1120 -2460 -860 Meds/Results Medications: Active Medications Generic Name Dose Route Start Last Admin Trade Name Freq PRN Reason Stop Dose Admin Acetaminophen 325 mg 02/26/19 19:50 03/05/19 01:25 Tylenol Tablet PO 325 mg Q4H PRN Administration Pain Albuterol 5 mg 02/26/19 20:00 03/05/19 09:00 Albuterol Sulf Neb 2.5mg/0.5ml INHALATION Not Given Q6HRT LIO Apixaban 5 mg 02/27/19 09:00 03/05/19 08:22 Eliquis PO 5 mg BID LIO Administration Aspirin 81 mg 02/27/19 09:00 03/05/19 08:22 Aspirin Ec PO 81 mg DAILY LIO Administration Dextrose 12.5 gm 02/26/19 19:53 Dextrose 50% Syringe IV PUSH PRN PRN Hypoglycemia Protoco
[2019-03-05 16:46] LABS: Glucose Point of Care 202 (65-105)
[2019-03-05 20:38] VITALS: PULSE 80
[2019-03-05 20:43] LABS: Glucose Point of Care 259 (65-105)
[2019-03-05 22:00] VITALS: BP 108/57; PULSE 84; RESP 20; TEMP 36.6; O2SAT 100
[2019-03-06 05:13] LABS: Basophils Absolute Auto 0.1 K/mm3 (0.0-0.1); Basophils Percent Auto 0.7 % (0.2-1.2); Eosinophils Absolute Auto 0.5 K/mm3 (0-0.3); Eosinophils Percent Auto 6.8 % (0-4.4); Hematocrit 25.8 % (37.0-47.0); Immature Granulocyte Absolute 0.02 K/mm3 (0.00-0.031); Immature Granulocyte Percent A 0.3 % (0-0.5); Lymphocytes Absolute Auto 1.69 K/mm3 (0.9-3.2); Mean Corpuscular HGB Conc 27.1 g/dl (32-36); Mean Corpuscular Hemoglobin 17.4 pg (26-34); Mean Platelet Volume 10.1 fl (7.4-10.4); Monocytes Absolute Auto 1.1 K/mm3 (0.1-0.6); Neutrophils Percent Auto 54.2 % (45.5-73.1); Nucleated Red Blood Cells Perc 0.3 % (0.0-0.2); Platelet Count Result 200 k/mm3 (150-375); Red Blood Count 4.03 M/mm3 (4.2-5.4); Red Cell Distribution Width 22.2 % (11.5-14.5); White Blood Count 7.3 K/mm3 (4.5-10.0)
[2019-03-06 05:20] LABS: Blood Urea Nitrogen 55 mg/dL (7-17); Carbon Dioxide 27 mmol/L (22-30); Chloride 95 mmol/L (98-107); Estimated CRCL calculation 27 ml/min; Estimated Glomerular Filt Rate 31; Glucose 317 mg/dL (65-105); Magnesium 1.8 mg/dL (1.6-2.3); Potassium 3.7 mmol/L (3.4-5.0); Sodium 133 mmol/L (137-145)
[2019-03-06 05:35] LABS: Platelet Estimate Adequate (Adequate)
[2019-03-06 05:36] LABS: Hypochromasia 2+ (NORMAL); Microcytosis 2+ (NORMAL); Ovalocytes 1+ (NORMAL)
[2019-03-06 06:00] VITALS: BP 97/44; PULSE 92; RESP 20; TEMP 36.2; O2SAT 95
[2019-03-06 06:11] LABS: Glucose Point of Care 306 (65-105)
[2019-03-06 08:00] VITALS: PULSE 92; RESP 20; O2SAT 95
--- NOTE | 2019-03-06 09:00 | PM.PNCARD ---
Progress Note: A&P Assessment and Plan (1) Hypokalemia: Code(s): E87.6 - Hypokalemia Status: Acute Assessment and Plan: She was hyperkalemic on admission with renal failure. Hypokalemia noted with restarted diuretics Contnue magnesium to 400 mg daily. Potassium 3.7 this morning. Continue at 40 mEq t.i.d. until potassium level equals 4.0 then adjustments will be made in the dosing. Give metolazone 5 mg again today. Continue diuretics with furosemide at 40 mg p.o. b.i.d.. Continue daily BMP. (2) RIANA (acute kidney injury): Code(s): N17.9 - Acute kidney failure, unspecified Status: Acute Assessment and Plan: Renal function at baseline. Continue to monitor as above. Diuretics as above. (3) Atrial fibrillation: Qualifiers: Atrial fibrillation type: permanent Qualified Code(s): I48.21 - Permanent atrial fibrillation Code(s): I48.91 - Unspecified atrial fibrillation Status: Acute Assessment and Plan: Rate is controlled with Metoprolol 100 mg q.12 hours and diltiazem CD 120 mg daily. Watch BP with aggressive diuresis. Anticoagulated with apixaban. (4) Congestive heart failure: Qualifiers: Heart failure type: diastolic Heart failure chronicity: chronic Qualified Code(s): I50.32 - Chronic diastolic (congestive) heart failure Code(s): I50.9 - Heart failure, unspecified Status: Acute Assessment and Plan: Chronic diastolic. Mostly right-sided failure Blood pressure at goal Diuretics as above. She most likely will always have some lower extremity edema. Ideally her legs should be wrapped before she gets out of bed in the morning. DAILY weights please Additional Plan Plan discussed with Dr. Waterman 0910 03/06/2019 Subjective Date/time seen: 03/06/19 09:00 Interval history: Follow-up for: Bradycardia, hyperkalemia, CKD, debility diastolic heart failure atrial fibrillation Date of service: 03/06/2019 Subjective: No chest discomfort. Shortness of breath at baseline. Now receiving nebulizer treatments prn. Lightheaded when first gets up as usual. Thinks that leg swelling slowly getting better Review of Systems Constitutional: Constitutional: Denies headache(s) and Reports weakness (improving) Eyes: Eyes: Denies blurry vision ENT: Denies headache(s), Reports hearing loss, Denies epistaxis (No carlos blood however has dried blood when blow his nose in the morning), Denies nasal discharge and Denies neck pain Cardiovascular: Cardiovascular: Denies chest pain, Reports pedal edema, Reports leg edema, Reports lightheadedness (Occasional), Denies palpitations and Reports dyspnea on exertion Respiratory: Respiratory: Denies cough, Reports dyspnea on exertion and Denies wheezing Gastrointestinal: Gastrointestinal: Denies abdominal pain, Denies nausea and Denies vomiting Musculoskeletal: Musculoskeletal: Reports abnormal gait (Related to weakness), Denies back pain, Denies neck pain and Denies numbness Integumentary/Breasts: Skin/Breast: Reports dry skin Neurologic: Reports abnormal gait (Related to weakness), Denies headache(s), Denies numbness and Reports weakness (Improving) Psychiatric: Psychiatric: Denies anxiety Endocrine: Endocrine: Reports fatigue (Improved) and Denies palpitations Allergic/Immunologic: Allergic/Immunologic: Denies wheezing Exam Const: General: comfortable and no acute distress Other: In therapy this morining HENMT: General nose exam: Normal nares present and no epistaxis Mouth: Yes moist mucous membranes Eyes: Sclera: sclerae normal Neck: Neck: supple Resp: Auscultation: crackles bilateral 1/[address] up and diminished lung sounds bilateral in the lower lung gamble Cardio: Rate: regular rate Rhythm: abnormal rhythm Heart sounds: no murm
[2019-03-06] MEDS: POTASSIUM CHLORIDE 10 MEQ TABLET.ER 40 MEQ PO ×3 (09:44→16:53)
[2019-03-06] MEDS: APIXABAN 5 MG TABLET PO ×2 (09:45→16:53)
[2019-03-06] MEDS: DOCUSATE SODIUM 100 MG CAPSULE PO ×2 (09:45→20:07)
[2019-03-06] MEDS: METOPROLOL TARTRATE 50 MG TAB 100 MG PO ×2 (09:46→20:08)
[2019-03-06] MEDS: FUROSEMIDE 40 MG TABLET PO ×2 (09:46→16:53)
[2019-03-06] MEDS: LORATADINE 10 MG TABLET PO (09:46)
[2019-03-06] MEDS: ASPIRIN 81 MG ENTERIC TABLET PO (09:46)
[2019-03-06] MEDS: OPTI-GEN TAB 1 TABLET PO (09:47)
[2019-03-06] MEDS: MAGNESIUM OXIDE 400 MG TABLET PO (09:47)
[2019-03-06] MEDS: PANTOPRAZOLE 40 MG TABLET PO (09:47)
[2019-03-06] MEDS: EUCERIN CREAM 120 GM JAR 1 APPLIC TOPICAL (09:48)
[2019-03-06] MEDS: TOLNAFTATE 1% POWDER 45 GM BTL 1 APPLIC TOPICAL ×2 (09:48→17:55)
[2019-03-06] MEDS: metOLazone 5 MG TABLET PO (09:50)
[2019-03-06] MEDS: INSULIN ASPART (*BKC) 100 UNITS/ML SUB-Q ×3 (09:51→16:54)
[2019-03-06] MEDS: INSULIN GLARGINE (*BKC) 100 UNITS/ML 10 UNITS SUB-Q (09:51)
[2019-03-06 10:00] VITALS: BP 138/82; PULSE 100; RESP 22; O2SAT 98
[2019-03-06 11:50] LABS: Glucose Point of Care 374 (65-105)
[2019-03-06 15:04] VITALS: BP 122/56; PULSE 92; RESP 18; TEMP 36.4; O2SAT 98
[2019-03-06 16:50] LABS: Glucose Point of Care 215 (65-105)
[2019-03-06] MEDS: MAGNESIUM CITRATE 300 ML BTL 150 ML PO (18:05)
[2019-03-06 20:08] VITALS: PULSE 80
[2019-03-06 21:04] LABS: Glucose Point of Care 244 (65-105)
[2019-03-06 22:00] VITALS: BP 110/58; PULSE 89; RESP 20; TEMP 36.1; O2SAT 98
[2019-03-07] MEDS: ACETAMINOPHEN 325 MG TABLET PO ×2 (00:14→22:30)
[2019-03-07 06:00] VITALS: BP 109/60; PULSE 86; RESP 20; TEMP 36.2; O2SAT 94
[2019-03-07 06:54] LABS: Glucose Point of Care 232 (65-105)
[2019-03-07 07:09] LABS: Blood Urea Nitrogen 61 mg/dL (7-17); Calcium 9.4 mg/dL (8.4-10.2); Carbon Dioxide 28 mmol/L (22-30); Chloride 95 mmol/L (98-107); Estimated CRCL calculation 25 ml/min; Estimated Glomerular Filt Rate 29; Glucose 229 mg/dL (65-105); Magnesium 2.3 mg/dL (1.6-2.3); Potassium 3.8 mmol/L (3.4-5.0); Sodium 136 mmol/L (137-145)
[2019-03-07] MEDS: INSULIN ASPART (*BKC) 100 UNITS/ML SUB-Q ×3 (08:05→17:44)
[2019-03-07] MEDS: POTASSIUM CHLORIDE 10 MEQ TABLET.ER 40 MEQ PO ×3 (08:05→17:45)
[2019-03-07] MEDS: APIXABAN 5 MG TABLET PO ×2 (08:06→17:43)
[2019-03-07] MEDS: DOCUSATE SODIUM 100 MG CAPSULE PO ×2 (08:06→20:59)
[2019-03-07] MEDS: ASPIRIN 81 MG ENTERIC TABLET PO (08:06)
[2019-03-07] MEDS: FUROSEMIDE 40 MG TABLET PO ×2 (08:06→17:44)
[2019-03-07 08:07] VITALS: PULSE 86
[2019-03-07] MEDS: MAGNESIUM OXIDE 400 MG TABLET PO (08:07)
[2019-03-07] MEDS: INSULIN GLARGINE (*BKC) 100 UNITS/ML 10 UNITS SUB-Q (08:07)
[2019-03-07] MEDS: METOPROLOL TARTRATE 50 MG TAB 100 MG PO ×2 (08:07→20:59)
[2019-03-07] MEDS: LORATADINE 10 MG TABLET PO (08:07)
[2019-03-07] MEDS: metOLazone 5 MG TABLET PO (08:07)
[2019-03-07] MEDS: EUCERIN CREAM 120 GM JAR 1 APPLIC TOPICAL (08:08)
[2019-03-07] MEDS: TOLNAFTATE 1% POWDER 45 GM BTL 1 APPLIC TOPICAL ×2 (08:08→17:45)
[2019-03-07] MEDS: PANTOPRAZOLE 40 MG TABLET PO (08:08)
[2019-03-07] MEDS: OPTI-GEN TAB 1 TABLET PO (08:08)
--- NOTE | 2019-03-07 10:46 | PCPTNOTE ---
Attempted to see patient at 8:25 for PT, however patient states that she can not participate at this time. Patient reports that she did not sleep at all last night and is too tired to do therapy. Therapy schedule rearranged and pt will be attempted to be seen at 11:00 for PT.
[2019-03-07 12:19] LABS: Glucose Point of Care 246 (65-105)
--- NOTE | 2019-03-07 12:51 | WPDNEURORHBP ---
Subjective Date/time seen: 03/07/19 12:51 Interval history: this patient is here with primary rehab diagnosis of debility with multiple comorbidities and metabolic errors the water resource project manager have been following him to actively Her potassium is getting better however creatinine is slightly increased magnesium is okay after receiving the supplemental magnesium lower extremity edema is being addressed with the wraps and she will need the training how to put the wraps on her family was present in fact the daughter were present for the team conference Review of Systems Constitutional: Constitutional: Reports no additional constitutional complaints Eyes: Eyes: Reports no additional eye complaints ENT: Reports system reviewed and no additional complaints, except as documented Cardiovascular: Cardiovascular: Reports no additional cardiovascular complaints Respiratory: Respiratory: Reports no additional respiratory complaints Gastrointestinal: Gastrointestinal: Reports no additional gastrointestinal complaints Genitourinary: Genitourinary: Reports no additional female genitourinary complaints Musculoskeletal: Musculoskeletal: Reports no additional musculoskeletal complaints Integumentary/Breasts: Skin/Breast: Reports system reviewed and no additional complaints, except as docu Neurologic: Comments: patient's overall is strength has endurance is improving and she is pretty near to her goals hoping to be discharged in couple of days Psychiatric: Psychiatric: Reports no additional psychiatric complaints Functional Status Ambulation Ability Ability to Ambulate 10 Feet: Standby Assistance Ability to Ambulate 50 Feet With 2 Turns: Standby Assistance Ability to Ambulate 150 Feet: Standby Assistance Ambulation Assistive Devices: Walker, Wheeled Transfers Ability Ability to Transfer In/Out of Chair: Standby Assistance Exam Const: General: comfortable and no acute distress HENMT: General nose exam: Normal nares present Mouth: Yes moist mucous membranes Eyes: General: appearance normal, both eyes and all related structures Neck: Neck: supple and no JVD Resp: Effort & Inspection: normal respiratory effort Auscultation: clear to auscultation bilaterally Cardio: Rate: regular rate Rhythm: regular rhythm GI: GI Palp: Yes Soft to palpation Auscultation: normal bowel sounds Neuro: Other: strength in general is improving and she is more cooperative and engage in therapy Extrem: Other: lower extremity edema roughly about 2 to 3+ Psych: Mental Status: mental status grossly normal Objective Data Vital Signs Vital Signs: Vital Signs - 24 hr 03/06/19 15:04 03/06/19 20:08 03/06/19 22:00 Temperature 36.4 C 36.1 C L Pulse Rate 92 80 89 Respiratory Rate 18 20 Blood Pressure 122/56 L 110/58 L Pulse Oximetry 98 98 03/07/19 06:00 03/07/19 08:07 Temperature 36.2 C L Pulse Rate 86 86 Respiratory Rate 20 Blood Pressure 109/60 Pulse Oximetry 94 Intake/Output Intake/Output: Intake & Output 03/04/19 03/05/19 03/06/19 03/07/19 23:59 23:59 23:59 23:59 Intake Total 240 480 720 420 Output Total 2700 2350 2500 1300 Balance -2460 -1870 -1780 -880 Meds/Results Medications: Active Medications Generic Name Dose Route Start Last Admin Trade Name Freq PRN Reason Stop Dose Admin Acetaminophen 325 mg 02/26/19 19:50 03/07/19 00:14 Tylenol Tablet PO 325 mg Q4H PRN Administration Pain Albuterol 5 mg 03/05/19 14:04 Albuterol Sulf Neb 2.5mg/0.5ml INHALATION Q6HRT PRN Shortness Of Breath Apixaban 5 mg 02/27/19 09:00 03/07/19 08:06 Eliquis PO 5 mg BID LIO Administration Aspirin 81 mg 02/27/19 09:00 03/07/19 08:06 Aspirin Ec PO 81 mg DAILY LIO Administration Bisacodyl 10 mg 03/07/19 00:02 Dulcolax Suppository RECTAL QAM PRN Constipation Dextrose 12.5 gm 02/26/19 19:53 Dextrose 50% Syringe IV PUSH PRN PRN Hypoglycemia Protoc
[2019-03-07 14:00] VITALS: BP 132/58; PULSE 96; RESP 18; TEMP 36.3; O2SAT 97
--- NOTE | 2019-03-07 15:25 | PCCCNOTE ---
On 03/07/19, the student, [ David Kern ], provided care and completed [facility] documentation on this patient. I have reviewed the student's documentation and agree with the findings.
--- NOTE | 2019-03-07 16:35 | PM.PNCARD ---
Progress Note: A&P Assessment and Plan (1) Hypokalemia: Code(s): E87.6 - Hypokalemia Status: Acute Assessment and Plan: She was hyperkalemic on admission with renal failure. Hypokalemia noted with restarted diuretics Contnue magnesium to 400 mg daily. Potassium 3.8 this morning. Continue at 40 mEq t.i.d. until potassium level equals 4.0 then adjustments will be made in the dosing. Now continue metolazone 5 mg every 48 hours. Continue diuretics with furosemide at 40 mg p.o. b.i.d.. Continue daily BMP and magnesium. Discontinued saline lock. (2) RIANA (acute kidney injury): Code(s): N17.9 - Acute kidney failure, unspecified Status: Acute Assessment and Plan: Creatinine 1.7 today. BUN 61. May be starting to get intravascularly dry. Continue to monitor. Diuretics as above. (3) Atrial fibrillation: Qualifiers: Atrial fibrillation type: permanent Qualified Code(s): I48.21 - Permanent atrial fibrillation Code(s): I48.91 - Unspecified atrial fibrillation Status: Acute Assessment and Plan: Rate is controlled with Metoprolol 100 mg q.12 hours and diltiazem CD 120 mg daily. Blood pressure stable. Anticoagulated with apixaban. (4) Congestive heart failure: Qualifiers: Heart failure chronicity: chronic Heart failure type: diastolic Qualified Code(s): I50.32 - Chronic diastolic (congestive) heart failure Code(s): I50.9 - Heart failure, unspecified Status: Acute Assessment and Plan: Chronic diastolic. Mostly right-sided failure Blood pressure at goal Diuretics as above. She most likely will always have some lower extremity edema. Ideally her legs should be wrapped before she gets out of bed in the morning. Continue daily weights. Wilkerson was discontinued today. Very low residuals. Additional Plan Doing well diuresing. Will continue to watch her closely. Blood sugars may need to be addressed. They have been elevated lately. Plan discussed with Dr Bucio [id number] 03/07/2019 Subjective Date/time seen: 03/07/19 16:35 Interval history: Follow-up for: Bradycardia, hyperkalemia, CKD, debility diastolic heart failure atrial fibrillation Date of service: 03/07/2019 Subjective: The only pain she experiences is discomfort when she coughs. No chest pain. Shortness of breath with exertional activities at baseline. Lightheaded when she first stands up on occasion, not consistently. Review of Systems Constitutional: Constitutional: Reports fatigue (Improved) and Denies headache(s) Eyes: Eyes: Denies blurry vision ENT: Denies headache(s), Reports hearing loss, Denies epistaxis (No carlos blood however has dried blood when blow his nose in the morning), Denies nasal discharge and Denies neck pain Cardiovascular: Cardiovascular: Denies chest pain, Reports pedal edema, Reports leg edema (Improving), Reports lightheadedness (Occasional), Denies palpitations and Reports dyspnea on exertion Respiratory: Respiratory: Denies cough, Reports dyspnea on exertion (At baseline) and Denies wheezing Gastrointestinal: Gastrointestinal: Denies abdominal pain, Denies nausea and Denies vomiting Genitourinary: Genitourinary: Denies dysuria Comments: Rock removed 02/27/2019. Voiding well. Musculoskeletal: Musculoskeletal: Reports abnormal gait (Related to weakness), Denies back pain, Denies neck pain and Denies numbness Integumentary/Breasts: Skin/Breast: Reports dry skin Neurologic: Reports abnormal gait (Related to weakness), Denies headache(s), Denies numbness and Reports weakness (Improving) Psychiatric: Psychiatric: Denies anxiety Endocrine: Endocrine: Reports fatigue (Improved) and Denies palpitations Allergic/Immunologic: Allergic/Immunologic: Denies wheezing Exam Const: General: comfortable and no acute distress Oth
[2019-03-07 17:20] LABS: Glucose Point of Care 223 (65-105)
--- NOTE | 2019-03-07 18:09 | PC.NURSE ---
At 11am had unmeasured void with 160ml post void residual.
--- NOTE | 2019-03-07 18:10 | PC.NURSE ---
1600 had 400 mls urine output and 110 post residual.
[2019-03-07 20:59] VITALS: PULSE 88
[2019-03-07 21:04] LABS: Glucose Point of Care 257 (65-105)
[2019-03-07 22:00] VITALS: BP 98/56; PULSE 64; RESP 19; TEMP 36; O2SAT 96
[2019-03-08 05:47] VITALS: BP 100/55; PULSE 72; RESP 20; TEMP 36.4; O2SAT 100
[2019-03-08 06:08] LABS: Blood Urea Nitrogen 64 mg/dL (7-17); Calcium 9.3 mg/dL (8.4-10.2); Carbon Dioxide 29 mmol/L (22-30); Chloride 97 mmol/L (98-107); Estimated CRCL calculation 24 ml/min; Estimated Glomerular Filt Rate 27; Glucose 246 mg/dL (65-105); Magnesium 2.6 mg/dL (1.6-2.3); Potassium 4.4 mmol/L (3.4-5.0); Sodium 137 mmol/L (137-145)
[2019-03-08 06:54] LABS: Glucose Point of Care 240 (65-105)
[2019-03-08] MEDS: INSULIN ASPART (*BKC) 100 UNITS/ML SUB-Q ×2 (07:21→17:35)
[2019-03-08] MEDS: POTASSIUM CHLORIDE 10 MEQ TABLET.ER 40 MEQ PO (08:48)
[2019-03-08] MEDS: ASPIRIN 81 MG ENTERIC TABLET PO (08:48)
[2019-03-08] MEDS: APIXABAN 5 MG TABLET PO ×2 (08:48→17:35)
[2019-03-08] MEDS: DOCUSATE SODIUM 100 MG CAPSULE PO (08:49)
[2019-03-08] MEDS: FUROSEMIDE 40 MG TABLET PO ×2 (08:49→17:35)
[2019-03-08] MEDS: INSULIN GLARGINE (*BKC) 100 UNITS/ML 10 UNITS SUB-Q (08:50)
[2019-03-08 08:52] VITALS: PULSE 72
[2019-03-08] MEDS: EUCERIN CREAM 120 GM JAR 1 APPLIC TOPICAL (08:52)
[2019-03-08] MEDS: LORATADINE 10 MG TABLET PO (08:52)
[2019-03-08] MEDS: MAGNESIUM OXIDE 400 MG TABLET PO (08:52)
[2019-03-08] MEDS: METOPROLOL TARTRATE 50 MG TAB 100 MG PO ×2 (08:52→21:18)
[2019-03-08] MEDS: PANTOPRAZOLE 40 MG TABLET PO (08:53)
[2019-03-08] MEDS: OPTI-GEN TAB 1 TABLET PO (08:53)
[2019-03-08] MEDS: TOLNAFTATE 1% POWDER 45 GM BTL 1 APPLIC TOPICAL ×2 (08:53→17:35)
--- NOTE | 2019-03-08 11:33 | PM.PNCARD ---
Progress Note: A&P Assessment and Plan (1) Hypokalemia: Code(s): E87.6 - Hypokalemia Status: Acute Assessment and Plan: She was hyperkalemic on admission with renal failure. Hypokalemia noted with restarted diuretics Will stop potassium and magnesium supplementation today.. Magnesium 2.6. Check BMP and magnesium in the morning. She is continuing to get diuretics. (2) RIANA (acute kidney injury): Code(s): N17.9 - Acute kidney failure, unspecified Status: Acute Assessment and Plan: Creatinine 1.8 today. BUN 64. Continue to monitor. (3) Atrial fibrillation: Qualifiers: Atrial fibrillation type: permanent Qualified Code(s): I48.21 - Permanent atrial fibrillation Code(s): I48.91 - Unspecified atrial fibrillation Status: Acute Assessment and Plan: Rate is controlled with Metoprolol 100 mg q.12 hours and diltiazem CD 120 mg daily. Blood pressure stable. Anticoagulated with apixaban. (4) Congestive heart failure: Qualifiers: Heart failure type: diastolic Heart failure chronicity: chronic Qualified Code(s): I50.32 - Chronic diastolic (congestive) heart failure Code(s): I50.9 - Heart failure, unspecified Status: Acute Assessment and Plan: Chronic diastolic. Mostly right-sided failure Blood pressure at goal Continue furosemide 40 mg b.i.d.. Continue metolazone 5 mg Q 48 hours. She most likely will always have some lower extremity edema. Ideally her legs should be wrapped before she gets out of bed in the morning. Continue daily weights. Voiding well. Additional Plan Plan discussed with Dr Bucio [id number] 03/08/2019 Subjective Date/time seen: 03/08/19 11:33 Interval history: Follow-up for: Bradycardia, hyperkalemia, CKD, debility diastolic heart failure atrial fibrillation Date of service: 03/08/2019 Subjective: Doing well. Shortness of breath at baseline. Swelling is better. Lightheaded if gets up too quickly. No palpitations. Voiding well. Review of Systems Constitutional: Constitutional: Reports fatigue (Improved), Denies headache(s) and Reports weakness (Improving) Eyes: Eyes: Denies blurry vision ENT: Denies headache(s), Reports hearing loss, Denies epistaxis (No carlos blood however has dried blood when blow her nose in the morning), Denies nasal discharge and Denies neck pain Cardiovascular: Cardiovascular: Denies chest pain, Reports pedal edema, Reports leg edema (Improving), Reports lightheadedness (Occasional), Denies palpitations and Reports dyspnea on exertion (At baseline) Respiratory: Respiratory: Denies cough, Reports dyspnea on exertion (At baseline) and Denies wheezing Gastrointestinal: Gastrointestinal: Denies abdominal pain, Denies nausea and Denies vomiting Genitourinary: Genitourinary: Denies dysuria Musculoskeletal: Musculoskeletal: Reports abnormal gait (Related to weakness), Denies back pain, Denies neck pain and Denies numbness Integumentary/Breasts: Skin/Breast: Reports dry skin Neurologic: Reports abnormal gait (Related to weakness), Denies headache(s), Denies numbness and Reports weakness (Improving) Psychiatric: Psychiatric: Denies anxiety Endocrine: Endocrine: Reports fatigue (Improved) and Denies palpitations Allergic/Immunologic: Allergic/Immunologic: Denies wheezing Exam Const: General: comfortable and no acute distress Other: In chair. Feet elevated HENMT: General nose exam: Normal nares present and Epistaxis present (Scant pink drainage after uses ocean spray) Mouth: Yes moist mucous membranes Eyes: Sclera: sclerae normal Neck: Neck: supple Resp: Auscultation: crackles bilateral at the base and diminished lung sounds bilateral in the lower lung gamble Cardio: Rate: regular rate Rhythm: abnormal rhythm Heart sounds
[2019-03-08 12:00] LABS: Glucose Point of Care 190 (65-105)
[2019-03-08 12:15] VITALS: BMI 38.1
[2019-03-08 14:00] VITALS: BP 104/55; PULSE 105; RESP 16; TEMP 36.2; O2SAT 97
--- NOTE | 2019-03-08 14:06 | WPDNEURORHBP ---
Subjective Date/time seen: 03/08/19 14:06 Interval history: patient is overall doing better and discharge planning are in progress however sugars are running relatively higher than before I discuss with the were health educator and will adjust her all Lantus Review of Systems Constitutional: Constitutional: Reports no additional constitutional complaints Eyes: Eyes: Reports no additional eye complaints ENT: Reports system reviewed and no additional complaints, except as documented Cardiovascular: Cardiovascular: Reports no additional cardiovascular complaints Respiratory: Respiratory: Reports no additional respiratory complaints Gastrointestinal: Gastrointestinal: Reports no additional gastrointestinal complaints Musculoskeletal: Musculoskeletal: Reports no additional musculoskeletal complaints Integumentary/Breasts: Skin/Breast: Reports system reviewed and no additional complaints, except as docu Neurologic: Reports system reviewed and no additional complaints, except as documented Psychiatric: Psychiatric: Reports no additional psychiatric complaints Functional Status Ambulation Ability Ability to Ambulate 10 Feet: Standby Assistance Ability to Ambulate 50 Feet With 2 Turns: Standby Assistance Ability to Ambulate 150 Feet: Standby Assistance Ambulation Assistive Devices: Walker, Wheeled Transfers Ability Ability to Transfer In/Out of Chair: Standby Assistance Exam Const: General: comfortable and no acute distress HENMT: General nose exam: Normal nares present Mouth: Yes moist mucous membranes Other: long-standing [id number] Eyes: General: appearance normal, both eyes and all related structures Neck: Neck: supple and no JVD Resp: Auscultation: clear to auscultation bilaterally and rales Other: according to the dip filler practitioner nurse patient always had some crackles due to chronic congestive heart failure Cardio: Rate: regular rate Rhythm: regular rhythm GI: GI Palp: Yes Soft to palpation Auscultation: normal bowel sounds Skin: General skin exam: normal color and no rashes or lesions noted Neuro: Other: the strength and endurance is improving and she is doing much better than the previous several days Extrem: General: normal to inspection Objective Data Vital Signs Vital Signs: Vital Signs - 24 hr 03/07/19 20:59 03/07/19 22:00 03/08/19 05:47 Temperature 36.0 C L 36.4 C Pulse Rate 88 64 72 Respiratory Rate 19 20 Blood Pressure 98/56 L 100/55 L Pulse Oximetry 96 100 03/08/19 08:52 Temperature Pulse Rate 72 Respiratory Rate Blood Pressure Pulse Oximetry Intake/Output Intake/Output: Intake & Output 03/05/19 03/06/19 03/07/19 03/08/19 23:59 23:59 23:59 23:59 Intake Total 112 395 6793 536 Output Total 2350 2500 1700 600 Balance -1870 -1780 -600 -64 Meds/Results Medications: Active Medications Generic Name Dose Route Start Last Admin Trade Name Freq PRN Reason Stop Dose Admin Acetaminophen 325 mg 02/26/19 19:50 03/07/19 22:30 Tylenol Tablet PO 325 mg Q4H PRN Administration Pain Albuterol 5 mg 03/05/19 14:04 Albuterol Sulf Neb 2.5mg/0.5ml INHALATION Q6HRT PRN Shortness Of Breath Apixaban 5 mg 02/27/19 09:00 03/08/19 08:48 Eliquis PO 5 mg BID LIO Administration Aspirin 81 mg 02/27/19 09:00 03/08/19 08:48 Aspirin Ec PO 81 mg DAILY LIO Administration Bisacodyl 10 mg 03/07/19 00:02 Dulcolax Suppository RECTAL QAM PRN Constipation Dextrose 12.5 gm 02/26/19 19:53 Dextrose 50% Syringe IV PUSH PRN PRN Hypoglycemia Protocol Diltiazem HCl 120 mg 02/27/19 09:00 03/08/19 08:49 Cardizem Cd PO 120 mg QAM LIO Administration Docusate Sodium 100 mg 02/26/19 21:00 03/08/19 08:49 Colace Cap PO 100 mg Q12HR LIO Administration Furosemide 40 mg 02/27/19 09:00 03/08/19 08:49 Lasix Tablet PO 40 mg BID LIO Administration Glucagon
[2019-03-08 16:50] LABS: Glucose Point of Care 232 (65-105)
[2019-03-08 21:18] VITALS: PULSE 80
[2019-03-08 21:18] LABS: Glucose Point of Care 234 (65-105)
[2019-03-08 22:00] VITALS: BP 100/41; PULSE 88; RESP 20; TEMP 36.6; O2SAT 100
[2019-03-08] MEDS: ACETAMINOPHEN 325 MG TABLET PO (22:59)
[2019-03-09] VITALS (9 sets, daily range): BP systolic 84–130; BP diastolic 40–73; PULSE 68–94; RESP 17–20; TEMP 36.3–36.6; O2SAT 93–100
[2019-03-09 06:14] LABS: Blood Urea Nitrogen 66 mg/dL (7-17); Carbon Dioxide 30 mmol/L (22-30); Chloride 93 mmol/L (98-107); Estimated CRCL calculation 22 ml/min; Estimated Glomerular Filt Rate 25; Glucose 179 mg/dL (65-105); Magnesium 2.4 mg/dL (1.6-2.3); Potassium 3.6 mmol/L (3.4-5.0); Sodium 133 mmol/L (137-145)
[2019-03-09 07:06] LABS: Glucose Point of Care 167 (65-105)
[2019-03-09] MEDS: ASPIRIN 81 MG ENTERIC TABLET PO (08:33)
[2019-03-09] MEDS: DOCUSATE SODIUM 100 MG CAPSULE PO ×2 (08:34→21:00)
[2019-03-09] MEDS: PANTOPRAZOLE 40 MG TABLET PO (08:34)
[2019-03-09] MEDS: OPTI-GEN TAB 1 TABLET PO (08:34)
[2019-03-09] MEDS: FUROSEMIDE 40 MG TABLET PO (08:34)
[2019-03-09] MEDS: metOLazone 5 MG TABLET PO (08:35)
[2019-03-09] MEDS: APIXABAN 5 MG TABLET PO ×2 (08:35→17:12)
[2019-03-09] MEDS: LORATADINE 10 MG TABLET PO (08:35)
[2019-03-09] MEDS: EUCERIN CREAM 120 GM JAR 1 APPLIC TOPICAL (08:36)
[2019-03-09] MEDS: TOLNAFTATE 1% POWDER 45 GM BTL 1 APPLIC TOPICAL ×2 (08:37→17:12)
[2019-03-09] MEDS: INSULIN GLARGINE (*BKC) 100 UNITS/ML 15 UNITS SUB-Q (08:41)
--- NOTE | 2019-03-09 12:04 | WPDNEURORHBP ---
Subjective Date/time seen: 03/09/19 12:04 Interval history: patient is feeling tired and fatigued without any chest pain mild shortness of breath with the therapy blood sugar still on the high side the Lantus needs to be adjusted Review of Systems Constitutional: Constitutional: Reports no additional constitutional complaints Eyes: Eyes: Reports no additional eye complaints ENT: Reports system reviewed and no additional complaints, except as documented Cardiovascular: Cardiovascular: Reports no additional cardiovascular complaints Respiratory: Respiratory: Reports no additional respiratory complaints Gastrointestinal: Gastrointestinal: Reports no additional gastrointestinal complaints Genitourinary: Genitourinary: Reports no additional female genitourinary complaints Musculoskeletal: Musculoskeletal: Reports no additional musculoskeletal complaints Integumentary/Breasts: Skin/Breast: Reports system reviewed and no additional complaints, except as docu Neurologic: Reports system reviewed and no additional complaints, except as documented Psychiatric: Psychiatric: Reports no additional psychiatric complaints Functional Status Ambulation Ability Ability to Ambulate 10 Feet: Standby Assistance Ability to Ambulate 50 Feet With 2 Turns: Standby Assistance Ability to Ambulate 150 Feet: Standby Assistance Ambulation Assistive Devices: Walker, Wheeled Transfers Ability Ability to Transfer In/Out of Chair: Standby Assistance Exam Const: General: comfortable and no acute distress HENMT: General nose exam: Normal nares present Mouth: Yes moist mucous membranes Eyes: General: appearance normal, both eyes and all related structures Neck: Neck: supple and no JVD Resp: Other: rales at the bases which have been present because of the chronic congestive heart failure Cardio: Rate: regular rate Rhythm: regular rhythm GI: GI Palp: Yes Soft to palpation Auscultation: normal bowel sounds Skin: General skin exam: normal color and no rashes or lesions noted Neuro: Other: the strength in general has improved no lateralizing focal motor deficit Extrem: General: normal to inspection Other: the edema of the lower extremities is LEs with the use of the wraps meaning [place] wraps and also elevating the legs Objective Data Vital Signs Vital Signs: Vital Signs - 24 hr 03/08/19 14:00 03/08/19 21:18 03/08/19 22:00 Temperature 36.2 C L 36.6 C Pulse Rate 105 H 80 88 Respiratory Rate 16 20 Blood Pressure 104/55 L 100/41 L Pulse Oximetry 97 100 03/09/19 01:09 03/09/19 06:00 03/09/19 08:49 Temperature 36.3 C L Pulse Rate 87 87 Respiratory Rate 19 Blood Pressure 94/40 L Pulse Oximetry 93 100 03/09/19 09:30 03/09/19 10:03 Temperature Pulse Rate Respiratory Rate Blood Pressure 84/50 L 130/73 Pulse Oximetry Intake/Output Intake/Output: Intake & Output 03/06/19 03/07/19 03/08/19 03/09/19 23:59 23:59 23:59 23:59 Intake Total 720 1100 1646 480 Output Total 2500 1700 1275 200 Balance -1780 -600 371 280 Meds/Results Medications: Active Medications Generic Name Dose Route Start Last Admin Trade Name Freq PRN Reason Stop Dose Admin Acetaminophen 325 mg 02/26/19 19:50 03/08/19 22:59 Tylenol Tablet PO 325 mg Q4H PRN Administration Pain Albuterol 5 mg 03/05/19 14:04 Albuterol Sulf Neb 2.5mg/0.5ml INHALATION Q6HRT PRN Shortness Of Breath Apixaban 5 mg 02/27/19 09:00 03/09/19 08:35 Eliquis PO 5 mg BID LIO Administration Aspirin 81 mg 02/27/19 09:00 03/09/19 08:33 Aspirin Ec PO 81 mg DAILY LIO Administration Bisacodyl 10 mg 03/07/19 00:02 Dulcolax Suppository RECTAL QAM PRN Constipation Dextrose 12.5 gm 02/26/19 19:53 Dextrose 50% Syringe IV PUSH PRN PRN Hypoglycemia Protocol Diltiazem HCl 120 mg 02/27/19 09:00 03/09/19 08:35 Cardizem Cd PO 120 mg QAM LIO Administration Docus
[2019-03-09 12:08] LABS: Glucose Point of Care 225 (65-105)
[2019-03-09] MEDS: INSULIN ASPART (*BKC) 100 UNITS/ML SUB-Q ×2 (12:16→17:13)
[2019-03-09 13:39] LABS: Hematocrit 26.8 % (37.0-47.0); Hemoglobin 7.1 g/dL (12.0-15.0); Mean Corpuscular HGB Conc 26.5 g/dl (32-36); Mean Corpuscular Hemoglobin 17.1 pg (26-34); Mean Corpuscular Volume 64.6 fl (80-100); Mean Platelet Volume 10.4 fl (7.4-10.4); Platelet Count Result 263 k/mm3 (150-375); Red Blood Count 4.15 M/mm3 (4.2-5.4); Red Cell Distribution Width 22.5 % (11.5-14.5); White Blood Count 7.9 K/mm3 (4.5-10.0)
--- NOTE | 2019-03-09 14:15 | PCCCNOTE ---
On 03/09/19, the student, [Nova Kern ], provided care and completed [facility] documentation on this patient. I have reviewed the student's documentation and agree with the findings.
[2019-03-09 17:01] LABS: Glucose Point of Care 217 (65-105)
[2019-03-09] MEDS: ACETAMINOPHEN 325 MG TABLET PO (19:25)
[2019-03-09 20:45] LABS: Glucose Point of Care 222 (65-105)
[2019-03-09] MEDS: METOPROLOL TARTRATE 50 MG TAB 100 MG PO (21:00)
[2019-03-10] VITALS (9 sets, daily range): BP systolic 101–123; BP diastolic 50–74; PULSE 64–97; RESP 17–22; TEMP 36.6–36.8; O2SAT 94–100
[2019-03-10] MEDS: ACETAMINOPHEN 325 MG TABLET PO ×2 (03:15→16:05)
[2019-03-10 05:01] LABS: Magnesium 2.2 mg/dL (1.6-2.3)
[2019-03-10 05:22] LABS: Blood Urea Nitrogen 64 mg/dL (7-17); Calcium 8.6 mg/dL (8.4-10.2); Carbon Dioxide 29 mmol/L (22-30); Chloride 92 mmol/L (98-107); Estimated CRCL calculation 21 ml/min; Estimated Glomerular Filt Rate 24; Glucose 203 mg/dL (65-105); Potassium 2.8 mmol/L (3.4-5.0); Sodium 133 mmol/L (137-145)
[2019-03-10 06:32] LABS: Glucose Point of Care 195 (65-105)
[2019-03-10] MEDS: POTASSIUM CHLORIDE 20 MEQ PACKET (FOR LIQUID) 40 MEQ PO (08:45)
--- NOTE | 2019-03-10 10:36 | PCPTNOTE ---
The patient treatment was not able to be completed on 03/10/2019 due to patient declined to participate due to being lethargic and can barely open eyes the patient stated. Will plan to continue treatment per plan of care.
[2019-03-10] MEDS: APIXABAN 5 MG TABLET PO ×2 (10:45→18:24)
[2019-03-10] MEDS: ASPIRIN 81 MG ENTERIC TABLET PO (10:45)
[2019-03-10] MEDS: OPTI-GEN TAB 1 TABLET PO (10:46)
[2019-03-10] MEDS: DOCUSATE SODIUM 100 MG CAPSULE PO ×2 (10:46→20:26)
[2019-03-10] MEDS: LORATADINE 10 MG TABLET PO (10:46)
[2019-03-10] MEDS: PANTOPRAZOLE 40 MG TABLET PO (10:47)
[2019-03-10] MEDS: TOLNAFTATE 1% POWDER 45 GM BTL 1 APPLIC TOPICAL ×2 (10:48→18:27)
[2019-03-10] MEDS: METOPROLOL TARTRATE 50 MG TAB 100 MG PO ×2 (10:48→20:26)
[2019-03-10] MEDS: EUCERIN CREAM 120 GM JAR 1 APPLIC TOPICAL (10:48)
[2019-03-10] MEDS: INSULIN GLARGINE (*BKC) 100 UNITS/ML 20 UNITS SUB-Q (11:08)
--- NOTE | 2019-03-10 11:17 | PCOTNOTE ---
OT treatment attempted at 11:00 however was not completed as patient complains of fatigue and states she cannot even open her eyes. Nursing notified and is addressing patient's complaints. OT to continue per POC.
[2019-03-10 12:31] LABS: Glucose Point of Care 265 (65-105)
--- NOTE | 2019-03-10 12:32 | PM.PNCARD ---
Progress Note: A&P Assessment and Plan (1) Hypokalemia: Code(s): E87.6 - Hypokalemia Status: Acute Assessment and Plan: She was hyperkalemic on admission with renal failure. Hypokalemia noted with restarted diuretics Potassium held yesterday. Received her morning dose of furosemide and metolazone. Evening dose of furosemide held due to symptomatic hypotension yesterda. Blood pressure improved. Potassium 2.8 this morning. Supplemented per . Will restart potassium 40 mEq t.i.d. with meals starting with this evening's meal depending upon what her repeat potassium level is this afternoon. Restart furosemide 40 mg b.i.d. starting with this evening's dose. Restart metolazone 5 mg Q 48 hours tomorrow morning with blood pressure parameters.. Restart magnesium 400 mg daily starting tomorrow. BMP and magnesium in the morning (2) RIANA (acute kidney injury): Code(s): N17.9 - Acute kidney failure, unspecified Status: Acute Assessment and Plan: Creatinine 2.0 today. BUN 64. Fluid restriction lifting yesterday due to renal function and hypotension Continue to monitor. Looking back on all of her creatinine levels seem that her baseline was around 1.6. May have to except a little higher creatinine in order to diurese her as long as her blood pressure is acceptable. (3) Atrial fibrillation: Qualifiers: Atrial fibrillation type: permanent Qualified Code(s): I48.21 - Permanent atrial fibrillation Code(s): I48.91 - Unspecified atrial fibrillation Status: Acute Assessment and Plan: Rate is controlled with Metoprolol 100 mg q.12 hours and diltiazem CD 120 mg daily. One dose of Metoprolol was hold yesterday due to her blood pressure. She improved in the afternoon. Anticoagulated with apixaban. Apixaban dose may need to be adjusted if her renal function does not improve. (4) Congestive heart failure: Qualifiers: Heart failure chronicity: chronic Heart failure type: diastolic Qualified Code(s): I50.32 - Chronic diastolic (congestive) heart failure Code(s): I50.9 - Heart failure, unspecified Status: Acute Assessment and Plan: Chronic diastolic. Mostly right-sided failure She most likely will always have some lower extremity edema. Getting rid of her edema is very difficul. She either has a lot of fluid in her legs including into her thighs and lower abdomen with weeping blisters or worsening renal function and hypotension. Will reintroduce diuretics starting with this evening's dose. Monitor closely Additional Plan Conversation with daughter Lynne by phone from [phone] this morning reviewing what medications were changed and what she was given yesterday. Will touch base with her again this afternoon regarding repeat potassium and plans for resuming medications. Discussed with that she most likely will not be discharged over the weekend until her diuretic medications as well as potassium supplementation can be determined. As she has not able to participate in physical therapy today he is in agreement. Plan discussed with Dr. Waterman 1400 03/10/2019 Subjective Date/time seen: 03/10/19 12:32 Interval history: Follow-up for: Bradycardia, hyperkalemia, CKD, debility diastolic heart failure atrial fibrillation Date of service: 03/10/2019 Subjective: Confused today. Not sure why she stuck in bed, why she does not have any people around, even her roommate isn't here and does not know what is going on. Aware she is at the hospital, month and year. Denied chest discomfort. Short of breath with exertional activities at baseline. No lightheadedness. Review of Systems Constitutional: Constitutional: Reports fatigue, Denies headache(s), Reports poor appetite and Reports weakness (Improving)
[2019-03-10] MEDS: INSULIN ASPART (*BKC) 100 UNITS/ML SUB-Q ×2 (13:09→18:28)
--- NOTE | 2019-03-10 13:39 | WPDNEURORHBP ---
Subjective Date/time seen: 03/10/19 13:39 Interval history: patient is mildly encephalopathic however when directed she becomes more receptive and answers questions well she is feeling tired and fatigued, her potassium is low earlier this morning and she is getting K rider Case has been discussed with cardiology team there managing the potassium and also diuretics The patient was supposed to have been discharged today however medically she is not stable enough either today or presumed to be tomorrow to go home The cardiology have already spoken with the daughter and upper raise her about overall situation Review of Systems Constitutional: Constitutional: Reports no additional constitutional complaints Comments: she is feeling fatigue and tired mildly encephalopathic Eyes: Eyes: Reports no additional eye complaints ENT: Reports system reviewed and no additional complaints, except as documented Cardiovascular: Cardiovascular: Reports no additional cardiovascular complaints Respiratory: Respiratory: Reports no additional respiratory complaints Gastrointestinal: Gastrointestinal: Reports no additional gastrointestinal complaints Genitourinary: Genitourinary: Reports no additional female genitourinary complaints Musculoskeletal: Musculoskeletal: Reports no additional musculoskeletal complaints Integumentary/Breasts: Skin/Breast: Reports system reviewed and no additional complaints, except as docu Neurologic: Comments: mildly encephalopathic and confused periodically probably related to multiple medical issues without any evidence of overt infectious process Functional Status Ambulation Ability Ability to Ambulate 10 Feet: Standby Assistance Ability to Ambulate 50 Feet With 2 Turns: Standby Assistance Ability to Ambulate 150 Feet: Standby Assistance Ambulation Assistive Devices: Walker, Wheeled Transfers Ability Ability to Transfer In/Out of Chair: Standby Assistance Exam Const: General: comfortable and no acute distress HENMT: General nose exam: Normal nares present Mouth: Yes moist mucous membranes Eyes: General: appearance normal, both eyes and all related structures Neck: Neck: supple and no JVD Chest: Other: bilateral rahls which are about the same as yesterday Resp: Auscultation: clear to auscultation bilaterally Other: bilateral rales Cardio: Rate: regular rate Rhythm: regular rhythm GI: GI Palp: Yes Soft to palpation Auscultation: normal bowel sounds Skin: General skin exam: normal color and no rashes or lesions noted Neuro: Other: mildly confused with supple neck no lateralizing focal motor deficit apart from generalized weakness related to multiple medical conditions no sign of infectious process Extrem: Other: 2+ edema of the lower extremity Psych: Other: mild confusion Objective Data Vital Signs Vital Signs: Vital Signs - 24 hr 03/09/19 21:00 03/09/19 22:00 03/10/19 06:00 Temperature 36.6 C 36.8 C Pulse Rate 68 94 70 Respiratory Rate 17 18 Blood Pressure 125/50 L 101/50 L Pulse Oximetry 99 99 03/10/19 10:48 Temperature Pulse Rate 64 Respiratory Rate Blood Pressure Pulse Oximetry Intake/Output Intake/Output: Intake & Output 03/07/19 03/08/19 03/09/19 03/10/19 23:59 23:59 23:59 23:59 Intake Total 1100 1646 1660 760 Output Total 1700 1275 1000 500 Balance -600 371 660 260 Meds/Results Medications: Active Medications Generic Name Dose Route Start Last Admin Trade Name Freq PRN Reason Stop Dose Admin Acetaminophen 325 mg 02/26/19 19:50 03/10/19 03:15 Tylenol Tablet PO 325 mg Q4H PRN Administration Pain Albuterol 5 mg 03/05/19 14:04 Albuterol Sulf Neb 2.5mg/0.5ml INHALATION Q6HRT PRN Shortness Of Breath Apixaban 5 mg 02/27/19 09:00 03/10/19 10:45 Eliquis PO 5 mg BID LIO Administration Aspirin 81 mg 02/27/19 09:00 03/10/19 10:45 Aspirin Ec PO 81 mg DAILY LIO Administration Bisacodyl 10 m
--- NOTE | 2019-03-10 13:43 | PM.PNNEP ---
Progress Note: A&P Assessment and Plan (1) Chronic kidney disease, stage IV (severe): Code(s): N18.4 - Chronic kidney disease, stage 4 (severe) Status: Acute Assessment and Plan: baseline appears to be ~ 1.6 - 2.0mg/dl presumably due to hypertension, diabetes, vascular disease and age-related change as well as chronic diuretics (2) Hypokalemia: Code(s): E87.6 - Hypokalemia Status: Acute Assessment and Plan: chronic issue on oral supplementation consider adding spironolactone if okay with Cardiology Just as stated from last note, not much else to add from renal perspective -- will continue to follow from the distance. Subjective Date/time seen: 03/10/19 13:44 Chart reviewed -- issues with confusion and hypokalemia noted (however, the latter is a chronic problems at baseline); renal function remains stable; some shortness of breath but no worse than baseline. Exam Narrative: Exam Narrative: General: WD/WN female in NAD Heart: normal S1 and S2; no rub Lungs: coarse breath sounds Abdomen: soft, nontender, nondistended, positive bowel sounds Extremities: no cyanosis or clubbing; 1+ edema (chronic component) Skin: warm and dry Objective Data Vital Signs Vital Signs: Vital Signs Temp Pulse Resp BP Pulse Ox 03/10/19 10:48 64 03/10/19 06:00 36.8 C 70 18 101/50 L 99 03/09/19 22:00 36.6 C 94 17 125/50 L 99 03/09/19 21:00 68 Intake/Output Intake/Output: Intake & Output 03/07/19 03/08/19 03/09/19 03/10/19 23:59 23:59 23:59 23:59 Intake Total 1100 1646 1660 760 Output Total 1700 1275 1000 500 Balance -600 371 660 260 Meds/Results Medications: Active Medications Generic Name Dose Route Start Last Admin Trade Name Freq PRN Reason Stop Dose Admin Acetaminophen 325 mg 02/26/19 19:50 03/10/19 03:15 Tylenol Tablet PO 325 mg Q4H PRN Administration Pain Albuterol 5 mg 03/05/19 14:04 Albuterol Sulf Neb 2.5mg/0.5ml INHALATION Q6HRT PRN Shortness Of Breath Apixaban 5 mg 02/27/19 09:00 03/10/19 10:45 Eliquis PO 5 mg BID LIO Administration Aspirin 81 mg 02/27/19 09:00 03/10/19 10:45 Aspirin Ec PO 81 mg DAILY LIO Administration Bisacodyl 10 mg 03/07/19 00:02 Dulcolax Suppository RECTAL QAM PRN Constipation Dextrose 12.5 gm 02/26/19 19:53 Dextrose 50% Syringe IV PUSH PRN PRN Hypoglycemia Protocol Diltiazem HCl 120 mg 02/27/19 09:00 03/10/19 10:45 Cardizem Cd PO 120 mg QAM LIO Administration Docusate Sodium 100 mg 02/26/19 21:00 03/10/19 10:46 Colace Cap PO 100 mg Q12HR LIO Administration Furosemide 40 mg 02/27/19 09:00 03/09/19 08:34 Lasix Tablet PO 40 mg BID LIO Administration Glucagon 1 mg 02/26/19 19:53 Glucagon For Inj IM PRN PRN Hypoglycemia Protocol Glucose 15 gm 02/26/19 19:53 Glutose 15 PO PRN PRN Hypoglycemia Protocol Guaifenesin 600 mg 02/26/19 19:50 03/08/19 23:00 Mucinex 12 Hr Tab PO 600 mg Q12H PRN Administration Cough Dextrose 1,000 mls @ 100 mls/hr 02/26/19 19:53 Dextrose 5% 1,000 Ml IVPB PRN PRN Hypoglycemia Protocol Insulin Aspart 3 - 6 units 02/27/19 08:00 03/10/19 13:09 Novolog SUB-Q 4 units TIDWM LIO Administration Protocol Insulin Glargine 20 units 03/09/19 12:04 03/10/19 11:08 Lantus SUB-Q 20 units DAILY LIO Administration Ipratropium [place] 0.5 mg 03/05/19 14:05 Atrovent Neb INHALATION Q6HRT PRN Shortness Of Breath Loratadine 10 mg 02/27/19 09:00 03/10/19 10:46 Claritin PO 10 mg DAILY LIO Administration Metolazone 5 mg 03/03/19 13:00 03/09/19 08:35 Zaroxolyn PO 5 mg Q48HR LIO Administration Metoprolol Tartrate 100 mg 02/26/19 21:00 03/10/19 10:48 Lopressor PO 100 mg Q12HR LIO Administration Multi-Ingred Cream/Lotion/Oil/Oi
--- NOTE | 2019-03-10 13:57 | PCDIET ---
Nutrition Follow-Up Complete: Nutrition Diagnosis: Excessive sodium and fluid intake related to CHF as evidenced by reported regular home diet, Na (128), and present edema. Nutrition Goal: Patient will consume 100% of meals Goal nearly met. Patient with 75-100% intake at most meals which is likely adequate in meeting needs. Diet is diabetic carbohydrate controlled. Would continue to encourage low sodium diet. Last recorded weight is 101 kg which is decreased. Edema also decreasing. Bowel Motility: +BM on 03/08/19. Labs Reviewed: Glu (203), BUN (64), Cr (2.0), K (2.8), Na (133) Meds Noted: Albuterol, Dulcolax, KCl, Colace, Lasix, Novolog, Ocuvite, Lantus, Protonix Additional Notes: No documented pressure ulcers. Will continue to monitor with same goals. Nutrition Monitoring and Evaluation: Will follow up in 7 days.
--- NOTE | 2019-03-10 14:22 | PM.PNCARD ---
Progress Note: A&P Assessment and Plan (1) Hypokalemia: Code(s): E87.6 - Hypokalemia Status: Acute Assessment and Plan: She was hyperkalemic on admission with renal failure. Hypokalemia noted with restarted diuretics Received her morning dose of furosemide and metolazone this morning. Hold evening dose of furosemide due to symptomatic hypotension. Potassium 3.6 today. Potassium on hold BMP and magnesium in the morning (2) RIANA (acute kidney injury): Code(s): N17.9 - Acute kidney failure, unspecified Status: Acute Assessment and Plan: Creatinine 1.9 today. BUN 64. Fluid restriction lifted. She is encouraged to drink some fluids today due to her hypotension and elevated creatinine Continue to monitor. (3) Atrial fibrillation: Qualifiers: Atrial fibrillation type: permanent Qualified Code(s): I48.21 - Permanent atrial fibrillation Code(s): I48.91 - Unspecified atrial fibrillation Status: Acute Assessment and Plan: Rate is controlled with Metoprolol 100 mg q.12 hours and diltiazem CD 120 mg daily. Hold dose of metoprolol this morning Anticoagulated with apixaban. (4) Congestive heart failure: Qualifiers: Heart failure chronicity: chronic Heart failure type: diastolic Qualified Code(s): I50.32 - Chronic diastolic (congestive) heart failure Code(s): I50.9 - Heart failure, unspecified Status: Acute Assessment and Plan: Chronic diastolic. Mostly right-sided failure She most likely will always have some lower extremity edema. Diuretics as above Additional Plan Plan discussed with Dr Bucio [id number] 03/09/2019 Subjective Date/time seen: 03/09/19 10:05 Interval history: Late entry. This is from the encounter on March 09, 2019 Follow-up for: Bradycardia, hyperkalemia, CKD, debility, diastolic heart failure, atrial fibrillation, chronic anticoagulation Date of service: 03/09/2019 Subjective: In bed bathing this morning. Denied chest discomfort. Short of breath with exertional activities at baseline. Got up to go to the bathroom this morning and knees buckled. Had two person assist so did not fall. Review of Systems Constitutional: Constitutional: Reports fatigue, Denies headache(s) and Reports weakness (Knees buckled with ambulation to the bathroom this morning) Eyes: Eyes: Denies blurry vision ENT: Denies headache(s), Reports hearing loss, Denies epistaxis (No carlos blood. ), Denies nasal discharge and Denies neck pain Cardiovascular: Cardiovascular: Denies chest pain, Reports pedal edema, Reports leg edema (Improving), Denies palpitations and Reports dyspnea on exertion (At baseline) Respiratory: Respiratory: Reports cough, Reports dyspnea on exertion (At baseline) and Denies wheezing Gastrointestinal: Gastrointestinal: Reports abdominal pain (Muscular pain related to coughing), Denies nausea and Denies vomiting Genitourinary: Genitourinary: Denies dysuria Musculoskeletal: Musculoskeletal: Reports abnormal gait (Related to weakness), Denies back pain, Denies neck pain and Denies numbness Integumentary/Breasts: Skin/Breast: Reports dry skin Neurologic: Reports abnormal gait (Related to weakness), Denies headache(s), Denies numbness and Reports weakness (Improving) Psychiatric: Psychiatric: Denies anxiety Endocrine: Endocrine: Reports fatigue and Denies palpitations Allergic/Immunologic: Allergic/Immunologic: Denies wheezing Exam Const: General: cooperative, no acute distress and anxious Orientation/consciousness: patient oriented x3 Other: In bed HENMT: General nose exam: Normal nares present Mouth: Yes moist mucous membranes Eyes: Sclera: sclerae normal Neck: Neck: supple Resp: Auscultation: crackles bilateral at the base (Unchanged) and diminishe
[2019-03-10] MEDS: IPRATROPIUM BR 0.02% INH SOLN 0.5 MG/2.5 ML VIAL INHALATION (14:34)
[2019-03-10] MEDS: ALBUTEROL SULFATE NEB 2.5 MG/0.5 ML INH 5 MG INHALATION (14:34)
[2019-03-10 16:44] LABS: Potassium 3.8 mmol/L (3.4-5.0)
[2019-03-10] MEDS: GUAIFENESIN 200 MG/10 ML UDC PO ×2 (16:45→22:43)
[2019-03-10 18:11] LABS: Glucose Point of Care 333 (65-105)
[2019-03-10] MEDS: FUROSEMIDE 40 MG TABLET PO (18:25)
[2019-03-10] MEDS: POTASSIUM CHLORIDE 10 MEQ TABLET.ER 40 MEQ PO (18:27)
[2019-03-10] MEDS: APIXABAN 2.5 MG TABLET PO (19:37)
[2019-03-10 21:14] LABS: Glucose Point of Care 324 (65-105)
[2019-03-11] VITALS (7 sets, daily range): BP systolic 106–124; BP diastolic 44–79; PULSE 75–104; RESP 18–22; TEMP 36.5–37.4; O2SAT 94–99
[2019-03-11] MEDS: ACETAMINOPHEN 325 MG TABLET PO ×2 (01:31→19:56)
[2019-03-11 05:41] LABS: Blood Urea Nitrogen 65 mg/dL (7-17); Calcium 8.6 mg/dL (8.4-10.2); Carbon Dioxide 27 mmol/L (22-30); Chloride 91 mmol/L (98-107); Estimated CRCL calculation 24 ml/min; Estimated Glomerular Filt Rate 27; Glucose 190 mg/dL (65-105); Sodium 131 mmol/L (137-145)
[2019-03-11 05:45] LABS: Magnesium 2.1 mg/dL (1.6-2.3)
[2019-03-11] MEDS: GUAIFENESIN 200 MG/10 ML UDC PO ×2 (06:27→16:29)
[2019-03-11 06:29] LABS: Glucose Point of Care 198 (65-105)
[2019-03-11] MEDS: POTASSIUM CHLORIDE 10 MEQ TABLET.ER 40 MEQ PO ×3 (10:23→18:30)
[2019-03-11] MEDS: APIXABAN 2.5 MG TABLET PO ×2 (10:24→18:29)
[2019-03-11] MEDS: ASPIRIN 81 MG ENTERIC TABLET PO (10:24)
[2019-03-11] MEDS: LORATADINE 10 MG TABLET PO (10:25)
[2019-03-11] MEDS: FUROSEMIDE 40 MG TABLET PO ×2 (10:25→18:29)
[2019-03-11] MEDS: EUCERIN CREAM 120 GM JAR 1 APPLIC TOPICAL (10:25)
[2019-03-11] MEDS: DOCUSATE SODIUM 100 MG CAPSULE PO ×2 (10:25→19:56)
[2019-03-11] MEDS: metOLazone 5 MG TABLET PO (10:25)
[2019-03-11] MEDS: METOPROLOL TARTRATE 50 MG TAB 100 MG PO ×2 (10:25→19:56)
[2019-03-11] MEDS: OPTI-GEN TAB 1 TABLET PO (10:26)
[2019-03-11] MEDS: PANTOPRAZOLE 40 MG TABLET PO (10:26)
[2019-03-11] MEDS: TOLNAFTATE 1% POWDER 45 GM BTL 1 APPLIC TOPICAL ×2 (10:26→18:31)
[2019-03-11] MEDS: INSULIN GLARGINE (*BKC) 100 UNITS/ML 20 UNITS SUB-Q (10:28)
[2019-03-11 12:09] LABS: Glucose Point of Care 264 (65-105)
[2019-03-11] MEDS: INSULIN ASPART (*BKC) 100 UNITS/ML SUB-Q (13:18)
[2019-03-11] MEDS: ALBUTEROL SULFATE NEB 2.5 MG/0.5 ML INH 5 MG INHALATION (16:36)
[2019-03-11] MEDS: IPRATROPIUM BR 0.02% INH SOLN 0.5 MG/2.5 ML VIAL INHALATION (16:36)
[2019-03-11 17:13] LABS: Glucose Point of Care 256 (65-105)
[2019-03-11 20:40] LABS: Glucose Point of Care 237 (65-105)
[2019-03-12] VITALS (8 sets, daily range): BP systolic 100–118; BP diastolic 56–70; PULSE 80–110; RESP 18; TEMP 36.2–36.6; O2SAT 96–100
[2019-03-12] MEDS: ACETAMINOPHEN 325 MG TABLET PO ×2 (04:39→08:45)
[2019-03-12 05:00] LABS: Blood Urea Nitrogen 65 mg/dL (7-17); Calcium 8.7 mg/dL (8.4-10.2); Carbon Dioxide 25 mmol/L (22-30); Chloride 91 mmol/L (98-107); Estimated CRCL calculation 26 ml/min; Estimated Glomerular Filt Rate 29; Glucose 255 mg/dL (65-105); Magnesium 1.9 mg/dL (1.6-2.3); Potassium 3.8 mmol/L (3.4-5.0); Sodium 130 mmol/L (137-145)
[2019-03-12 06:37] LABS: Glucose Point of Care 239 (65-105)
--- NOTE | 2019-03-12 08:37 | PCOTNOTE ---
Attempted to see patient this am, however pt became upset upon entering room stating, I can't do anything. Two doctors and my daughter were supposed to be here at 8 o'clock and nobody is here. We are supposed to start something to help with my legs. I just can't do it.
[2019-03-12] MEDS: POTASSIUM CHLORIDE 10 MEQ TABLET.ER 40 MEQ PO ×3 (08:38→17:13)
[2019-03-12] MEDS: OPTI-GEN TAB 1 TABLET PO (08:39)
[2019-03-12] MEDS: DOCUSATE SODIUM 100 MG CAPSULE PO ×2 (08:39→20:10)
[2019-03-12] MEDS: EUCERIN CREAM 120 GM JAR 1 APPLIC TOPICAL (08:39)
[2019-03-12] MEDS: APIXABAN 2.5 MG TABLET PO ×2 (08:39→17:12)
[2019-03-12] MEDS: PANTOPRAZOLE 40 MG TABLET PO (08:39)
[2019-03-12] MEDS: LORATADINE 10 MG TABLET PO (08:40)
[2019-03-12] MEDS: TOLNAFTATE 1% POWDER 45 GM BTL 1 APPLIC TOPICAL ×2 (08:40→17:13)
[2019-03-12] MEDS: ASPIRIN 81 MG ENTERIC TABLET PO (08:41)
[2019-03-12] MEDS: INSULIN ASPART (*BKC) 100 UNITS/ML SUB-Q ×3 (08:42→17:14)
[2019-03-12] MEDS: INSULIN GLARGINE (*BKC) 100 UNITS/ML 20 UNITS SUB-Q (08:43)
--- NOTE | 2019-03-12 08:56 | PC.NURSE ---
Notified Dr. Roblero of decreased b/p and meds held.
--- NOTE | 2019-03-12 11:13 | PC.NURSE ---
Per Dr. Maria De Jesus antunez a.m. lasix and metoprolol.
[2019-03-12 11:34] LABS: Glucose Point of Care 268 (65-105)
[2019-03-12] MEDS: GUAIFENESIN 200 MG/10 ML UDC PO ×2 (12:00→20:11)
[2019-03-12] MEDS: ACETAMINOPHEN 325 MG TABLET 650 MG PO ×2 (12:21→23:24)
--- NOTE | 2019-03-12 13:11 | WPDNEURORHBP ---
Subjective Date/time seen: 03/12/19 13:11 family concerned about edema ,pain and meds Review of Systems Review of Systems: All systems reviewed & are unremarkable except as noted in HPI and below Functional Status Ambulation Ability Ability to Ambulate 10 Feet: Contact Guard Ability to Ambulate 50 Feet With 2 Turns: Standby Assistance Ability to Ambulate 150 Feet: Standby Assistance Ambulation Assistive Devices: Walker, Wheeled Transfers Ability Ability to Transfer In/Out of Chair: Standby Assistance Exam Const: General: cooperative, alert, awake, acute distress and uncomfortable Nutritional Appearance: obese and overweight Orientation/consciousness: oriented to person, oriented to place and oriented to time Eyes: General: appearance normal, both eyes and all related structures Neck: Neck: full ROM Resp: Effort & Inspection: able to speak in complete sentences Auscultation: clear to auscultation bilaterally Cardio: Rate: regular rate Rhythm: regular rhythm GI: Inspection: Abdominal wall edema and distended Skin: General skin exam: no rashes or lesions noted Neuro: General: patient oriented x3 and CN's II-XI intact bilaterally Cranial nerves: Yes Equal, round and reactive pupils present and Yes Nystagmus not present Cognition (Neuro): normal cognition Motor exam (neuro): 5/5 motor strength present throughout (decreased) Psych: Affect: Anxious affect present Attitude: cooperative Thought process: Normal thought process present Insight: Fair insight present (Psych) Objective Data Vital Signs Vital Signs: Vital Signs - 24 hr 03/11/19 14:00 03/11/19 16:36 03/11/19 16:45 Temperature 36.5 C Pulse Rate 93 104 H 100 Respiratory Rate 18 20 20 Blood Pressure 119/63 Pulse Oximetry 98 03/11/19 20:46 03/11/19 21:19 03/12/19 05:51 Temperature 37.4 C 36.4 C Pulse Rate 94 95 Respiratory Rate 18 18 Blood Pressure 124/79 100/63 Pulse Oximetry 94 94 98 03/12/19 08:00 03/12/19 08:56 03/12/19 12:21 Temperature 36.4 C Pulse Rate 95 95 Respiratory Rate 18 Blood Pressure Pulse Oximetry 98 Intake/Output Intake/Output: Intake & Output 03/09/19 03/10/19 03/11/19 03/12/19 23:59 23:59 23:59 23:59 Intake Total 1660 1770 720 670 Output Total 1000 1100 1000 450 Balance 660 670 -280 220 Meds/Results Medications: Active Medications Generic Name Dose Route Start Last Admin Trade Name Freq PRN Reason Stop Dose Admin Acetaminophen 650 mg 03/12/19 11:56 03/12/19 12:21 Tylenol Tablet PO 650 mg Q4H PRN Administration Headache Albuterol 5 mg 03/05/19 14:04 03/11/19 16:36 Albuterol Sulf Neb 2.5mg/0.5ml INHALATION 5 mg Q6HRT PRN Administration Shortness Of Breath Apixaban 2.5 mg 03/10/19 17:00 03/12/19 08:39 Eliquis PO 2.5 mg BID LIO Administration Aspirin 81 mg 02/27/19 09:00 03/12/19 08:41 Aspirin Ec PO 81 mg DAILY LIO Administration Bisacodyl 10 mg 03/07/19 00:02 Dulcolax Suppository RECTAL QAM PRN Constipation Dextrose 12.5 gm 02/26/19 19:53 Dextrose 50% Syringe IV PUSH PRN PRN Hypoglycemia Protocol Diltiazem HCl 120 mg 02/27/19 09:00 03/12/19 08:55 Cardizem Cd PO Not Given QAM LIO Docusate Sodium 100 mg 02/26/19 21:00 03/12/19 08:39 Colace Cap PO 100 mg Q12HR LIO Administration Furosemide 40 mg 02/27/19 09:00 03/12/19 11:58 Lasix Tablet PO Not Given BID LIO Glucagon 1 mg 02/26/19 19:53 Glucagon For Inj IM PRN PRN Hypoglycemia Protocol Glucose 15 gm 02/26/19 19:53 Glutose 15 PO PRN PRN Hypoglycemia Protocol Guaifenesin 200 mg 03/10/19 15:17 03/12/19 12:00 Guaifenesin Liq PO 200 mg Q4H PRN Administration Cough Dextrose 1,000 mls @ 100 mls/hr 02/26/19 19:53 Dextrose 5% 1,000 Ml IVPB PRN PRN Hypoglycemia Protocol Insulin Aspart 3 - 6 units 02/27/19 08:00 03/12/19
--- NOTE | 2019-03-12 14:27 | PC.NURSE ---
Talked with Dr. Gamble earlier today regarding edema, diuretics and b/p meds and he advised that cardiology was handling that part of patient care and asked that we continue to talk with them regarding these meds and edema. will continue to monitor.
[2019-03-12] MEDS: FUROSEMIDE 40 MG TABLET PO (15:28)
--- NOTE | 2019-03-12 16:04 | PM.PNCARD ---
Progress Note: A&P Additional Plan chronic decompensated diastolic heart failure, CKD, flactuation in K level, AF controlled, Plan after discussion wit nephro and family, decision to add aldactone 25 mg daily, watch for renal function and K, discuss with cardiology before holding Lasix, cont lasix BID, and K replacement. cont metorplol and cont decreasing Diltiazem level to add room for aldactone and diuresis. Subjective Date/time seen: 03/12/19 16:04 Interval history: feels LE pain and swelling with fatigue Review of Systems Review of Systems: Narrative: Cardiac: No chest pain or palpitations or dizziness/syncope Respiratory: +ve for SOB & cough Abdomen: Good appetite, no nausea or vomiting or diarrhea Hematologic: No bleeding or easy bruises Neurologic: generalized weakness or numbness Exam Narrative: Exam Narrative: General: able to lie flat, no acute distress Respiratory: No chest wall tenderness, equal air entry and expansion, scattered wheezes Cardiovascular: The heart has a regular rate and rhythm without murmur, +ve JVD. Lower extremities: +Ve B ++++ lower extremity edema. Warm, no skin lesion or bruises. Good capillary refill. Objective Data Vital Signs Vital Signs: Vital Signs - 24 hr 03/11/19 16:36 03/11/19 16:45 03/11/19 20:46 Temperature 37.4 C Pulse Rate 104 H 100 94 Respiratory Rate 20 20 18 Blood Pressure 124/79 Pulse Oximetry 94 03/11/19 21:19 03/12/19 05:51 03/12/19 08:00 Temperature 36.4 C Pulse Rate 95 95 Respiratory Rate 18 18 Blood Pressure 100/63 Pulse Oximetry 94 98 98 03/12/19 08:56 03/12/19 12:21 03/12/19 13:20 Temperature 36.4 C 36.2 C L Pulse Rate 95 Respiratory Rate Blood Pressure Pulse Oximetry 03/12/19 14:00 Temperature 36.2 C L Pulse Rate 87 Respiratory Rate 18 Blood Pressure 118/56 L Pulse Oximetry 96 Intake/Output Intake/Output: Intake & Output 03/09/19 03/10/19 03/11/19 03/12/19 23:59 23:59 23:59 23:59 Intake Total 1660 1770 720 790 Output Total 1000 1100 1000 450 Balance 660 670 -280 340 Meds/Results Medications: Active Medications Generic Name Dose Route Start Last Admin Trade Name Freq PRN Reason Stop Dose Admin Acetaminophen 650 mg 03/12/19 11:56 03/12/19 12:21 Tylenol Tablet PO 650 mg Q4H PRN Administration Headache Albuterol 5 mg 03/05/19 14:04 03/11/19 16:36 Albuterol Sulf Neb 2.5mg/0.5ml INHALATION 5 mg Q6HRT PRN Administration Shortness Of Breath Apixaban 2.5 mg 03/10/19 17:00 03/12/19 08:39 Eliquis PO 2.5 mg BID LIO Administration Aspirin 81 mg 02/27/19 09:00 03/12/19 08:41 Aspirin Ec PO 81 mg DAILY LIO Administration Bisacodyl 10 mg 03/07/19 00:02 Dulcolax Suppository RECTAL QAM PRN Constipation Dextrose 12.5 gm 02/26/19 19:53 Dextrose 50% Syringe IV PUSH PRN PRN Hypoglycemia Protocol Diltiazem HCl 120 mg 02/27/19 09:00 03/12/19 08:55 Cardizem Cd PO Not Given QAM LIO Docusate Sodium 100 mg 02/26/19 21:00 03/12/19 08:39 Colace Cap PO 100 mg Q12HR LIO Administration Furosemide 40 mg 02/27/19 09:00 03/12/19 15:28 Lasix Tablet PO 40 mg BID LIO Administration Glucagon 1 mg 02/26/19 19:53 Glucagon For Inj IM PRN PRN Hypoglycemia Protocol Glucose 15 gm 02/26/19 19:53 Glutose 15 PO PRN PRN Hypoglycemia Protocol Guaifenesin 200 mg 03/10/19 15:17 03/12/19 12:00 Guaifenesin Liq PO 200 mg Q4H PRN Administration Cough Dextrose 1,000 mls @ 100 mls/hr 02/26/19 19:53 Dextrose 5% 1,000 Ml IVPB PRN PRN Hypoglycemia Protocol Insulin Aspart 3 - 6 units 02/27/19 08:00 03/12/19 12:29 Novolog SUB-Q 4 units TIDWM LIO Administration Protocol Insulin Glargine 20 units 03/09/19 12:04 03/12/19 08:43 Lantus SUB-Q 20 units DAILY LIO Administration Ipratropium [place]
[2019-03-12 17:07] LABS: Glucose Point of Care 276 (65-105)
[2019-03-12] MEDS: METOPROLOL TARTRATE 50 MG TAB 100 MG PO (20:10)
[2019-03-12 21:25] LABS: Glucose Point of Care 299 (65-105)
[2019-03-13] VITALS (7 sets, daily range): BP systolic 112–120; BP diastolic 53–78; PULSE 92–102; RESP 17–20; TEMP 36.1–36.8; O2SAT 94–100
[2019-03-13 06:01] LABS: Basophils Percent Auto 0.3 % (0.2-1.2); Eosinophils Absolute Auto 0.1 K/mm3 (0-0.3); Eosinophils Percent Auto 1.5 % (0-4.4); Hematocrit 24.6 % (37.0-47.0); Immature Granulocyte Absolute 0.02 K/mm3 (0.00-0.031); Immature Granulocyte Percent A 0.3 % (0-0.5); Lymphocytes Absolute Auto 1.86 K/mm3 (0.9-3.2); Lymphocytes Percent Auto 24.7 % (18.3-44.2); Mean Corpuscular HGB Conc 27.6 g/dl (32-36); Mean Corpuscular Hemoglobin 17.2 pg (26-34); Mean Corpuscular Volume 62.3 fl (80-100); Monocytes Absolute Auto 1.4 K/mm3 (0.1-0.6); Monocytes Percent Auto 18.4 % (2.6-8.5); Neutrophils Absolute Auto 4.1 K/mm3 (1.3-6.7); Neutrophils Percent Auto 54.8 % (45.5-73.1); Nucleated Red Blood Cells Perc 0.3 % (0.0-0.2); Platelet Count Result 288 k/mm3 (150-375); Red Blood Count 3.95 M/mm3 (4.2-5.4); Red Cell Distribution Width 21.8 % (11.5-14.5); White Blood Count 7.5 K/mm3 (4.5-10.0)
[2019-03-13 06:02] LABS: Blood Urea Nitrogen 64 mg/dL (7-17); Calcium 8.7 mg/dL (8.4-10.2); Carbon Dioxide 26 mmol/L (22-30); Chloride 93 mmol/L (98-107); Estimated CRCL calculation 24 ml/min; Estimated Glomerular Filt Rate 27; Glucose 193 mg/dL (65-105); Potassium 3.2 mmol/L (3.4-5.0); Sodium 131 mmol/L (137-145)
[2019-03-13 06:03] LABS: Magnesium 1.9 mg/dL (1.6-2.3)
[2019-03-13 06:06] LABS: Hemoglobin 6.8 g/dL (12.0-15.0)
[2019-03-13 06:23] LABS: Hypochromasia 3+ (NORMAL); Ovalocytes 1+ (NORMAL); Platelet Estimate Adequate (Adequate); Tear Drop Cells 1+ (NORMAL)
[2019-03-13 06:24] LABS: Target Cells 1+ (NORMAL)
[2019-03-13 07:42] LABS: Glucose Point of Care 200 (65-105)
[2019-03-13] MEDS: POTASSIUM CHLORIDE 10 MEQ TABLET.ER 40 MEQ PO ×3 (10:08→17:34)
[2019-03-13] MEDS: APIXABAN 2.5 MG TABLET PO ×2 (10:09→17:33)
[2019-03-13] MEDS: ASPIRIN 81 MG ENTERIC TABLET PO (10:09)
[2019-03-13] MEDS: DOCUSATE SODIUM 100 MG CAPSULE PO ×2 (10:10→19:52)
[2019-03-13] MEDS: FUROSEMIDE 40 MG TABLET PO ×2 (10:11→17:34)
[2019-03-13] MEDS: LORATADINE 10 MG TABLET PO (10:12)
[2019-03-13] MEDS: OPTI-GEN TAB 1 TABLET PO (10:13)
[2019-03-13] MEDS: metOLazone 5 MG TABLET PO (10:13)
[2019-03-13] MEDS: PANTOPRAZOLE 40 MG TABLET PO (10:14)
[2019-03-13] MEDS: METOPROLOL TARTRATE 50 MG TAB 100 MG PO ×2 (10:27→19:52)
[2019-03-13] MEDS: INSULIN GLARGINE (*BKC) 100 UNITS/ML 20 UNITS SUB-Q (10:31)
[2019-03-13] MEDS: EUCERIN CREAM 120 GM JAR 1 APPLIC TOPICAL (11:03)
[2019-03-13] MEDS: MAGNESIUM OXIDE 400 MG TABLET PO (11:03)
[2019-03-13] MEDS: TOLNAFTATE 1% POWDER 45 GM BTL 1 APPLIC TOPICAL ×2 (11:03→17:34)
[2019-03-13] MEDS: IPRATROPIUM BR 0.02% INH SOLN 0.5 MG/2.5 ML VIAL INHALATION (11:36)
[2019-03-13] MEDS: ALBUTEROL SULFATE NEB 2.5 MG/0.5 ML INH 5 MG INHALATION (11:36)
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
[2019-03-13 12:25] LABS: Glucose Point of Care 175 (65-105)
[2019-03-13] MEDS: POTASSIUM CHLORIDE 20 MEQ PACKET (FOR LIQUID) 40 MEQ PO (13:09)
[2019-03-13 13:52] LABS: Add Urine Microscopic? YES; Appearance Urine Cloudy (Clear); Bacteria Urine Trace /hpf; Bilirubin Urine Negative (Negative); Blood Urine 2+ (Negative); Color Urine Yellow (Yellow); Glucose Urine UA Negative (Negative); Ketones Urine Negative (Negative); Leukocyte Esterase Ur 2+ LEU/UL (Negative); Mucus Urine Rare /lpf; Nitrate Urine Negative (Negative); Protein Urine Negative (Negative); RBC Urine 21-50 /hpf (0-2); Squamous Epithelial Cell Urine Moderate /hpf (Few); Transitional Epi Cells Urine Rare /hpf (None Seen); Urobilinogen Urine Negative mg/dL (<2.0); WBC Urine 21-30 /hpf
[2019-03-13] MEDS: polyethylene glycoL 3350 17 GM POWD.PACK PO (15:31)
[2019-03-13 17:36] LABS: Glucose Point of Care 205 (65-105)
[2019-03-13] MEDS: INSULIN ASPART (*BKC) 100 UNITS/ML SUB-Q (17:36)
[2019-03-13] MEDS: ACETAMINOPHEN 325 MG TABLET 650 MG PO (19:53)
[2019-03-13] MEDS: GUAIFENESIN 200 MG/10 ML UDC PO (20:00)
[2019-03-13 21:26] LABS: Glucose Point of Care 199 (65-105)
[2019-03-14] MEDS: ACETAMINOPHEN 325 MG TABLET 650 MG PO ×2 (01:01→12:48)
[2019-03-14] MEDS: GUAIFENESIN 200 MG/10 ML UDC PO (01:01)
[2019-03-14 04:53] LABS: Hematocrit 25.6 % (37.0-47.0); Mean Corpuscular Hemoglobin 17.2 pg (26-34); Mean Corpuscular Volume 63.8 fl (80-100); Mean Platelet Volume 10.5 fl (7.4-10.4); Platelet Count Result 307 k/mm3 (150-375); Red Blood Count 4.01 M/mm3 (4.2-5.4); Red Cell Distribution Width 22.5 % (11.5-14.5)
[2019-03-14 05:11] LABS: Hemoglobin 6.9 g/dL (12.0-15.0)
[2019-03-14 05:19] LABS: Blood Urea Nitrogen 64 mg/dL (7-17); Calcium 8.3 mg/dL (8.4-10.2); Carbon Dioxide 25 mmol/L (22-30); Chloride 96 mmol/L (98-107); Estimated CRCL calculation 24 ml/min; Estimated Glomerular Filt Rate 29; Glucose 174 mg/dL (65-105); Magnesium 1.7 mg/dL (1.6-2.3); Potassium 3.9 mmol/L (3.4-5.0); Sodium 133 mmol/L (137-145)
[2019-03-14 06:00] VITALS: BP 99/42; PULSE 87; RESP 22; TEMP 36.1; O2SAT 100
[2019-03-14 07:07] LABS: Glucose Point of Care 140 (65-105)
[2019-03-14] MEDS: POTASSIUM CHLORIDE 10 MEQ TABLET.ER 40 MEQ PO ×2 (10:53→12:50)
[2019-03-14] MEDS: APIXABAN 2.5 MG TABLET PO (10:53)
[2019-03-14] MEDS: ASPIRIN 81 MG ENTERIC TABLET PO (10:53)
[2019-03-14] MEDS: LORATADINE 10 MG TABLET PO (10:54)
[2019-03-14] MEDS: FUROSEMIDE 40 MG TABLET PO (10:54)
[2019-03-14] MEDS: DOCUSATE SODIUM 100 MG CAPSULE PO (10:54)
[2019-03-14] MEDS: OPTI-GEN TAB 1 TABLET PO (10:55)
[2019-03-14] MEDS: MAGNESIUM OXIDE 400 MG TABLET PO (10:55)
[2019-03-14] MEDS: TOLNAFTATE 1% POWDER 45 GM BTL 1 APPLIC TOPICAL (10:56)
[2019-03-14] MEDS: PANTOPRAZOLE 40 MG TABLET PO (10:56)
[2019-03-14] MEDS: LACTULOSE 20 GM/30 ML UDC 30 GM PO (10:56)
[2019-03-14] MEDS: EUCERIN CREAM 120 GM JAR 1 APPLIC TOPICAL (10:58)
[2019-03-14] MEDS: INSULIN GLARGINE (*BKC) 100 UNITS/ML 25 UNITS SUB-Q (11:02)
[2019-03-14 11:05] VITALS: PULSE 87
[2019-03-14] MEDS: METOPROLOL TARTRATE 50 MG TAB 100 MG PO (11:05)
--- NOTE | 2019-03-14 12:10 | PM.PNCARD ---
Progress Note: A&P Assessment and Plan (1) Hypokalemia: Code(s): E87.6 - Hypokalemia Status: Acute Assessment and Plan: She was hyperkalemic on admission with renal failure. Hypokalemia noted with restarted diuretics Potassium 3.2 this morning. She has been receiving her 40 mEq t.i.d. in the coated tablets. Would like her to have a 40 mEq dose of the liquid today. Discussed with her the importance of getting it in and absorbed. BMP and magnesium daily. (2) RIANA (acute kidney injury): Code(s): N17.9 - Acute kidney failure, unspecified Status: Acute Assessment and Plan: Creatinine is near baseline. (3) Atrial fibrillation: Qualifiers: Atrial fibrillation type: permanent Qualified Code(s): I48.21 - Permanent atrial fibrillation Code(s): I48.91 - Unspecified atrial fibrillation Status: Acute Assessment and Plan: Rate is controlled with Metoprolol 100 mg q.12 hours and diltiazem CD 120 mg daily. Will switch her to inpatient status in IMU and likely will increase her diltiazem for better rate control if needed. Anticoagulated with apixaban. (4) Congestive heart failure: Qualifiers: Heart failure type: diastolic Heart failure chronicity: chronic Qualified Code(s): I50.32 - Chronic diastolic (congestive) heart failure Code(s): I50.9 - Heart failure, unspecified Status: Acute Assessment and Plan: Chronic diastolic. Mostly right-sided failure. Will give a dose of IV furosemide 40 mg IV x1 now. She is not getting any better and her current situation. Additional Plan I think that she should be brought back from rehab and readmitted to IMU. She needs a PA and lateral chest x-ray which I will order. Likely needs IV diuretics with close attention to her renal function. I also think that she should be transfused at least 2 units of blood Subjective Date/time seen: 03/14/19 12:10 Interval history: Follow-up for: Bradycardia, hyperkalemia, CKD, debility, diastolic heart failure, atrial fibrillation, chronic anticoagulation Date of service: 03/14/2019 Subjective: She feels terrible. Legs are massively swollen. She is weak. I have talked to rehab therapists do think that she is not progressing in fact regressing. Her legs are weeping. She is short of breath. Review of Systems Constitutional: Constitutional: Reports anorexia, Reports fatigue, Denies headache(s) and Reports weakness Eyes: Eyes: Denies blurry vision ENT: Denies headache(s), Reports hearing loss, Denies epistaxis (No carlos blood. ), Denies nasal discharge and Denies neck pain Cardiovascular: Cardiovascular: Denies chest pain, Reports pedal edema, Reports leg edema (Improving), Denies palpitations and Reports dyspnea on exertion (At baseline) Respiratory: Respiratory: Reports cough (Not productive), Reports dyspnea on exertion (At baseline) and Denies wheezing Gastrointestinal: Gastrointestinal: Reports abdominal pain (Muscular pain related to coughing), Denies nausea and Denies vomiting Genitourinary: Genitourinary: Denies dysuria Musculoskeletal: Musculoskeletal: Reports abnormal gait (Related to weakness), Denies back pain, Denies neck pain and Denies numbness Integumentary/Breasts: Skin/Breast: Reports dry skin Neurologic: Reports abnormal gait (Related to weakness), Denies headache(s), Denies numbness and Reports weakness Psychiatric: Psychiatric: Denies anxiety Endocrine: Endocrine: Reports fatigue and Denies palpitations Allergic/Immunologic: Allergic/Immunologic: Denies wheezing Exam Narrative: Exam Narrative: Up in chair. Legs elevated Const: General: cooperative, no acute distress and anxious Orientation/consciousness: patient oriented x3 Other: In bed HENMT: General nose exam: Normal nares present and Other nasal findings present (Few drops of bloo
[2019-03-14 12:47] LABS: Glucose Point of Care 203 (65-105)
--- NOTE | 2019-03-14 12:48 | WPDNEURORHBP ---
Subjective Date/time seen: 03/14/19 12:48 Interval history: patient is here because of debility and weakness however main issues the cardiac along with the at times hypo and at times hyperkalemia and also anemia has been seen by the clinical immunologist and they are planning to move her to step up unit to be monitored rather closely for her heart and multiple other reasons the matter has been discussed in the team conference and the daughter was present for the same Review of Systems Constitutional: Constitutional: Reports no additional constitutional complaints Eyes: Eyes: Reports no additional eye complaints ENT: Reports system reviewed and no additional complaints, except as documented Cardiovascular: Cardiovascular: Reports no additional cardiovascular complaints Respiratory: Respiratory: Reports no additional respiratory complaints Gastrointestinal: Gastrointestinal: Reports no additional gastrointestinal complaints Genitourinary: Genitourinary: Reports no additional female genitourinary complaints Musculoskeletal: Musculoskeletal: Reports no additional musculoskeletal complaints Integumentary/Breasts: Skin/Breast: Reports system reviewed and no additional complaints, except as docu Neurologic: Reports system reviewed and no additional complaints, except as documented Psychiatric: Psychiatric: Reports no additional psychiatric complaints Functional Status Ambulation Ability Ability to Ambulate 10 Feet: Contact Guard Ability to Ambulate 50 Feet With 2 Turns: Standby Assistance Ability to Ambulate 150 Feet: Standby Assistance Ambulation Assistive Devices: Walker, Wheeled Transfers Ability Ability to Transfer In/Out of Chair: Standby Assistance Exam Const: General: comfortable and no acute distress HENMT: General nose exam: Normal nares present Mouth: Yes moist mucous membranes Eyes: General: appearance normal, both eyes and all related structures Neck: Neck: supple and no JVD Resp: Other: crackles at the bases and rhonchi in general which are unchanged Cardio: Rate: regular rate Rhythm: regular rhythm GI: GI Palp: Yes Soft to palpation Auscultation: normal bowel sounds Skin: General skin exam: normal color and no rashes or lesions noted Neuro: Other: patient has generalized weakness of both upper lower extremities for which she came to us and it is related to multiple medical issues along with the anemia the progress notes from the clinical immunologist reviewed Extrem: Other: lower extremity edema is roughly about the same the Franklin wrap as been applied periodically with some improved Psych: Mental Status: mental status grossly normal Objective Data Vital Signs Vital Signs: Vital Signs - 24 hr 03/13/19 14:00 03/13/19 19:52 03/13/19 20:24 Temperature 36.3 C L 36.1 C L Pulse Rate 94 92 94 Respiratory Rate 17 20 Blood Pressure 115/53 L 120/78 Pulse Oximetry 94 100 03/14/19 06:00 03/14/19 11:05 Temperature 36.1 C L Pulse Rate 87 87 Respiratory Rate 22 H Blood Pressure 99/42 L Pulse Oximetry 100 Intake/Output Intake/Output: Intake & Output 03/11/19 03/12/19 03/13/19 03/14/19 23:59 23:59 23:59 23:59 Intake Total 720 1580 1570 590 Output Total 7755 506 3043 650 Balance -280 630 -55 -60 Meds/Results Medications: Active Medications Generic Name Dose Route Start Last Admin Trade Name Freq PRN Reason Stop Dose Admin Acetaminophen 650 mg 03/12/19 11:56 03/14/19 01:01 Tylenol Tablet PO 650 mg Q4H PRN Administration Headache Albuterol 5 mg 03/05/19 14:04 03/13/19 11:36 Albuterol Sulf Neb 2.5mg/0.5ml INHALATION 5 mg Q6HRT PRN Administration Shortness Of Breath Apixaban 2.5 mg 03/10/19 17:00 03/14/19 10:53 Eliquis PO 2.5 mg BID LIO Administration Aspirin 81 mg 02/27/19 09:00 03/14/19 10:53 Aspirin Ec PO 81 mg DAILY LIO Administration Bisacodyl 10 mg 03/07/19 00:02 Dulcolax Suppository RECTAL QAM PRN Constipati
[2019-03-14] MEDS: FUROSEMIDE INJ 40 MG/4 ML VIAL IV PUSH (12:51)
[2019-03-14] MEDS: INSULIN ASPART (*BKC) 100 UNITS/ML SUB-Q (12:52)
--- NOTE | 2019-03-14 13:47 | PCPTNOTE ---
Attempted to see patient for PT, however RN advised not to see patient at this time due to change in medical status. Total missed minutes of PT: 33 minutes.
[2019-03-14 14:00] VITALS: BP 121/60; PULSE 102; RESP 18; TEMP 35.8; O2SAT 98
--- NOTE | 2019-03-14 14:05 | PCOTNOTE ---
OT PM treatment withheld per nursing request.
[2019-03-14 14:45] LABS: IFOB Positive Control Positive; Immunochemical Fecal Occult Bl Positive (N)
--- NOTE | 2019-03-14 16:01 | PM.IMCN ---
Assessment and Plan Assessment and plan (1) Anemia: Qualifiers: Anemia type: unspecified type Qualified Code(s): D64.9 - Anemia, unspecified Code(s): D64.9 - Anemia, unspecified Status: Acute Assessment and Plan: Patient is being transferred to IMU. Will need a GI consult as patient had Hemoccult-positive and we will hold her Eliquis for now. Transfuse the patient. Hold aspirin as well. (2) Congestive heart failure: Qualifiers: Heart failure type: diastolic Heart failure chronicity: chronic Qualified Code(s): I50.32 - Chronic diastolic (congestive) heart failure Code(s): I50.9 - Heart failure, unspecified Status: Acute Assessment and Plan: Patient is on Lasix and metoprolol (3) Chronic atrial fibrillation: Code(s): I48.20 - Chronic atrial fibrillation, unspecified Status: Acute Assessment and Plan: Hold Eliquis at this time. Patient on metoprolol and Cardizem. (4) Type 2 diabetes mellitus with hyperglycemia, with long-term current use of insulin: Code(s): E11.65 - Type 2 diabetes mellitus with hyperglycemia; Z79.4 - terminal superintendent (current) use of insulin Status: Acute Assessment and Plan: Continue sliding scale insulin. (5) Hypokalemia: Code(s): E87.6 - Hypokalemia Status: Acute Assessment and Plan: Replace as necessary. HPI Data of Consult Consult date: 03/14/19 Requesting Physician: Igor Roblero MD Primary Care Provider: Geovani De Jesus MD Consult Narrative Narrative: Radha Salmeron is a 83 year old female who presented to the emergency room on 02/20/2019. Patient has a history of right-sided congestive heart failure, valvular disease, and chronic kidney disease. The patient of initially came in with acute renal failure and hyperkalemia. Was a medication adjustment. Now the patient is in [facility] and her potassium has been running low. The patient she has been getting Lasix. She has swelling to her lower extremities. Her hemoglobin was noted to be 6.8 beats typically the sevens. Her stool for occult blood was positive today. I was asked to consult on the patient for further evaluation. Patient is being transferred to IMU. His service 03/14/2019. Review of Systems Review of Systems: All systems reviewed & are unremarkable except as noted in HPI and below Constitutional: Constitutional: Reports as per HPI and Reports no additional constitutional complaints Comments: The patient stated that she is tired of being sick and feels like she wants to give up at times Eyes: Eyes: Reports as per HPI and Reports no additional eye complaints ENT: Reports system reviewed and no additional complaints, except as documented and Reports Normal hearing present Comments: Very hard of hearing even with hearing aids Cardiovascular: Cardiovascular: Reports no additional cardiovascular complaints Respiratory: Respiratory: Reports no additional respiratory complaints and Reports no additional respiratory complaints Gastrointestinal: Gastrointestinal: Reports as per HPI and Reports no additional gastrointestinal complaints Musculoskeletal: Musculoskeletal: Reports no additional musculoskeletal complaints Integumentary/Breasts: Skin/Breast: Reports system reviewed and no additional complaints, except as docu and Reports as per HPI Neurologic: Reports system reviewed and no additional complaints, except as documented, Reports as per HPI and Reports Normal hearing present Psychiatric: Psychiatric: Reports no additional psychiatric complaints and Reports as per HPI Endocrine: Endocrine: Reports no additional endocrine complaints Hematologic/Lymphatic: Hematologic/Lymphatic: Reports no additional hematologic/lymphatic complaints Allergic/Immunologic: Allergic/Immunologic: Reports no additional allergic/immunologic complaints [facility] Past Medical History Medical History (Reviewed 03/14/19 @ 16:09 by Ana Brar
--- NOTE | 2019-03-18 01:10 | DS_ITS ---
DATE OF DISCHARGE: 03/14/2019 DISCHARGE ACUTE REHAB DIAGNOSIS: Primary rehab impairment category of miscellaneous with etiological diagnosis of severe sepsis with septic shock. DISCHARGE ACTIVE COMORBID CONDITIONS: 1. Anxiety. 2. Chronic kidney disease. 3. Congestive heart failure. 4. Type 2 diabetes mellitus. 5. GERD. 6. Hypertension. 7. Macular degeneration. 8. Obstructive sleep apnea. REASON FOR ADMISSION: An 83-year-old right-handed female was admitted to the hospital with the ongoing diagnosis of right-sided congestive heart failure, valvular disease, chronic kidney disease. She was admitted on 02/20/2019 with complaints of increasing weakness, generalized body aches, and cough. She was recently admitted in mid January for pneumonia, was discharged to [facility] for the rehab and normally lives in independent living at [facility]. The patient's family reported a couple of days prior to this particular admission, she was coughing, which was getting worse. Her x-ray of the chest at that particular time was obtained, but she was also showing increasing confusion and about her potassium she was taking 160 mEq twice a day. Upon admission, potassium was 7.3. Chest x-ray demonstrated persistent diffuse interstitial pattern in the lungs consistent with mild pulmonary edema versus chronic interstitial lung disease. Repeat chest x-ray in 02/2013 documented worsening of the diffuse lung disease consistent with pulmonary edema and atelectasis versus pneumonia. She was admitted to Intensive Care with severe sepsis, started on IV ceftriaxone and azithromycin. Cardiologists were consulted. Diltiazem was withheld along with metoprolol. Cafeteria Assistant ordered renal ultrasound, which was negative for any gross abnormality. Metoprolol was restarted 02/21 was intended to be increased to her home dose. On 02/21, the patient passed a modified barium swallow and placed on regular diabetic diet with thin liquids. Renal ultrasound documented normal kidneys with no hydronephrosis. Urine culture was growing Enterococcus. She was started on vancomycin. MRSA culture was negative. Cultures were negative x2 on 02/22. IV antibiotic was changed to ampicillin, but will be transitioned to oral antibiotics to complete her treatment course. The patient had obstructive sleep apnea, was unable to wear CPAP due to claustrophobia. She was using 2 L of oxygen at night per nasal cannula instead of CPAP. On 02/24/2019, diuretic was restarted because of edema and pleural effusion. She was placed on increased dose of potassium chloride temporarily with readjustment as needed due to severe hyperkalemia. Cardiology recommended strict monitoring of intake, output, BMP and magnesium. Urine catheter was removed on February 23, but had to be reinserted that evening due to retention. Plan for a voiding trial in [facility] was considered. She remained stable. Medical complication includes acute kidney failure, hyperglycemia, hypertension, hematuria, bradycardia, congestive heart failure, atrial fibrillation with slow ventricular response, severe hyperkalemia, urinary retention, anemia. She was discharged to rehab on Eliquis and aspirin for DVT prophylaxis. Therapy was initiated on the acute care facility and the patient was transferred to us from [facility] on 02/26/2019. She had no major surgery in the last 100 days. LEVEL OF FUNCTION AT THE TIME OF ADMISSION: The patient required setup for the eating and oral hygiene, substantial assistance for toileting, partial assistance for bathing, upper body dressing, substantial assistance for lower body dressing. She was dependent for footwear, independent rolling in bed. She required partial assistance for sit to lying, lying to sit, sit to stand, chair transfer, toilet transfer, car transfer, w
== END 2019-03-14 16:50 | disposition short-term general hospital (02) | DRG 871 ==
PROVIDERS: Nurse Practitioner Adult Health; Admitting Provider Psychiatry & Neurology Neurology; PCP Family Medicine; Visit Provider Psychiatry & Neurology Neurology
DX: A41.9 Sepsis, unspecified organism (principal); R65.21 Severe sepsis with septic shock; J18.9 Pneumonia, unspecified organism; I38 Endocarditis, valve unspecified; N17.9 Acute kidney failure, unspecified; I13.0 Hypertensive heart and chronic kidney disease with heart failure and stage 1 through stage 4 chronic kidney disease, or unspecified chronic kidney disease; N39.0 Urinary tract infection, site not specified; I50.32 Chronic diastolic (congestive) heart failure; N18.4 Chronic kidney disease, stage 4 (severe); G93.40 Encephalopathy, unspecified; I48.20 Chronic atrial fibrillation, unspecified; K92.1 Melena; R60.0 Localized edema; B95.2 Enterococcus as the cause of diseases classified elsewhere; D63.1 Anemia in chronic kidney disease; E87.5 Hyperkalemia; E11.42 Type 2 diabetes mellitus with diabetic polyneuropathy; E86.0 Dehydration; E11.65 Type 2 diabetes mellitus with hyperglycemia; E87.6 Hypokalemia; E83.42 Hypomagnesemia; E11.22 Type 2 diabetes mellitus with diabetic chronic kidney disease; F41.8 Other specified anxiety disorders; G47.33 Obstructive sleep apnea (adult) (pediatric); H91.90 Unspecified hearing loss, unspecified ear; H35.30 Unspecified macular degeneration; I70.0 Atherosclerosis of aorta; K21.9 Gastro-esophageal reflux disease without esophagitis; N32.81 Overactive bladder; R31.9 Hematuria, unspecified; R94.5 Abnormal results of liver function studies; R53.81 Other malaise; R33.9 Retention of urine, unspecified; Z79.4 Long term (current) use of insulin; Z86.73 Personal history of transient ischemic attack (TIA), and cerebral infarction without residual deficits; Z86.718 Personal history of other venous thrombosis and embolism; Z99.81 Dependence on supplemental oxygen; Z91.19 Patient's noncompliance with other medical treatment and regimen
CPT/HCPCS: 36415; 71046; 80048; 81001; 82274; 83735; 84132; 85025; 85027; 87086; 87186; 94640; 97110; 97116; 97150; 97161; 97166; 97530; 97535; 97542; A9270; J1815; J1940; J3475; J3480

== ENCOUNTER 2019-03-14 17:19 | Inpatient (IN) | payer MEDICARE, OTHER, SELFPAY ==
--- NOTE | ~2019-03-14 | US_ITS ---
EXAMINATION: US venous doppler [facility] DATE: 03/15/2019 13:49 INDICATION: Lower limb edema. TECHNIQUE: Grayscale ultrasound images without and with compression and Doppler ultrasound images of the bilateral lower extremity veins were obtained. COMPARISON: Ultrasound 07/11/2017 FINDINGS: The visualized portions of right common femoral vein, profunda (deep) femoral vein, femoral vein, pop liteal vein, peroneal veins, posterior tibial veins, and greater saphenous vein outflow are patent. The visualized portions of left common femoral vein, profunda femoral vein, femoral vein, popliteal v ein, peroneal veins, posterior tibial veins, and greater saphenous vein outflow are patent. IMPRESSION: 1. No deep venous thrombosis. Reviewed, dictated and finalized at location A. ASE OF INFORMATION SPECIALIST
--- NOTE | ~2019-03-14 | US_ITS ---
EXAMINATION: US venous doppler [facility] DATE: 03/22/2019 08:17 INDICATION: Lower limb edema. TECHNIQUE: Grayscale ultrasound images without and with compression and Doppler ultrasound images of the bilateral lower extremity veins were obtained. COMPARISON: Ultrasound 03/15/2019 FINDINGS: The visualized portions of right common femoral vein, profunda (deep) femoral vein, femoral vein, pop liteal vein, peroneal veins, posterior tibial veins, and greater saphenous vein outflow are patent. The visualized portions of left common femoral vein, profunda femoral vein, femoral vein, popliteal v ein, peroneal veins, posterior tibial veins, and greater saphenous vein outflow are patent. IMPRESSION: 1. No deep venous thrombosis. Reviewed, dictated and finalized at location A. EL ENGINE SPECIALIST
--- NOTE | 2019-03-14 16:50 | PC.NURSE ---
This patient, Radha Salmeron, was admitted to IMU Room 211-01. Patient/family oriented to hospital policies and general routines including ID bracelet, bed and alarms, visiting hours, pain management, procedures, bathroom and other care routines, personal items, smoking policy, room service/diet, and visiting hours. Valuables list has been completed. Information on how to activate the Rapid Response Team has been discussed. Patient/Family are encouraged to report perceived risks to care and to ask questions if they do not understand what they are told or what they should do.
--- NOTE | 2019-03-14 17:53 | PM.IMHP ---
H&P: HPI History of Present Illness Chief complaint: Severe Anemia chf Narrative: Radha Salmeron is a 83 year old female Narrative: Radha Salmeron is a 83 year old female who presented to the emergency room on 02/20/2019. Patient has a history of right-sided congestive heart failure, valvular disease, and chronic kidney disease. The patient of initially came in with acute renal failure and hyperkalemia. Was a medication adjustment. the patient was in [facility] and her potassium has been running low. The patient she has been getting Lasix. She has swelling to her lower extremities. Her hemoglobin was noted to be 6.8 but typically in the sevens. Her stool for occult blood was positive today. I was asked to consult on the patient for further evaluation in the [facility] and transferred to IMU. His service 03/14/2019. Review of Systems Review of Systems: Narrative: The patient stated that she is feeling very fatigued and that she is tired of being sick all the time. She feels that she is not getting better and she feels that she is going to in the next 4 days. She is very hard of hearing even with her hearing aids in. The patient stated that she feels like giving up at times because she is tired of feeling poorly. She wants to continue with treatments and does not want hospice at this time. All systems reviewed & are unremarkable except as noted in HPI and below Constitutional: Constitutional: Reports as per HPI and Reports no additional constitutional complaints Eyes: Eyes: Reports as per HPI and Reports no additional eye complaints ENT: Reports system reviewed and no additional complaints, except as documented and Reports Normal hearing present Comments: Very hard of hearing Cardiovascular: Cardiovascular: Reports no additional cardiovascular complaints Comments: Shortness of breath with exertion. Has been doing less activity recently. Respiratory: Respiratory: Reports no additional respiratory complaints, Reports no additional respiratory complaints and Reports dyspnea on exertion Gastrointestinal: Gastrointestinal: Reports as per HPI and Reports no additional gastrointestinal complaints Musculoskeletal: Musculoskeletal: Reports no additional musculoskeletal complaints Integumentary/Breasts: Skin/Breast: Reports system reviewed and no additional complaints, except as docu and Reports as per HPI Neurologic: Reports system reviewed and no additional complaints, except as documented, Reports as per HPI and Reports Normal hearing present Psychiatric: Psychiatric: Reports no additional psychiatric complaints and Reports as per HPI Comments: She has been feeling hopeless and down in the dumps but does not want to be on anti depressants as she states this makes her feel worse. Endocrine: Endocrine: Reports no additional endocrine complaints Hematologic/Lymphatic: Hematologic/Lymphatic: Reports no additional hematologic/lymphatic complaints Allergic/Immunologic: Allergic/Immunologic: Reports no additional allergic/immunologic complaints [facility] Social History Social History (Updated 03/14/19 @ 16:10 by Ana Gomez NP) Social History: The patient resides at [facility]. She is . Her daughter Katelyn is her healthcare power of admitted attorneys. Code status: DNR per patient request Primary care physician: Dr. 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 Smoking status: Never smoker Second hand tobacco smoke exposure: No Alcohol intake: never Substance use: never Substance use type: does not use Living arrangements: [facility] Occupation/Education: other Gender identity (if verbalized by the patient): Female Spiritual care concerns: No Agree to blood products: Yes Meds Home Medications and Allergies Home Medications Medication Instructions Recorded Confirmed Type pen needle, diabetic 31 gauge x #100
[2019-03-14 18:00] VITALS: PULSE 83
[2019-03-14 18:20] VITALS: BP 97/40; PULSE 92; RESP 22; TEMP 35.9; O2SAT 100
[2019-03-14 19:53] VITALS: BP 103/56; PULSE 94; RESP 22; TEMP 36.4; O2SAT 97
[2019-03-14 19:54] VITALS: BMI 38.5
[2019-03-14] MEDS: ACETAMINOPHEN 325 MG TABLET 650 MG PO (19:56)
[2019-03-14 20:00] VITALS: PULSE 88
[2019-03-14 20:21] LABS: Glucose Point of Care 196 (65-105)
[2019-03-14 20:34] LABS: Iron 11 ug/dL (37-170)
[2019-03-14 20:35] LABS: Lactate Dehydrogenase 530 U/L (313-618)
[2019-03-14 20:43] LABS: Percent Iron Saturation 3 % (20-50); Transferrin 287 mg/dL (206-381)
[2019-03-14 20:46] LABS: Immature Reticulocyte Fraction 20.2 % (3.0-15.9); Reticulocyte Hemoglobin Conten 16.8 pg (28.2-35.7); Reticulocyte Percent 1.74 % (0.7-4.3); Reticulocytes Absolute 0.07 B/L (32.2-175.7)
[2019-03-14 21:51] LABS: Folic Acid 12.1 ng/mL (2.76->20)
[2019-03-14 21:55] VITALS: PULSE 10
[2019-03-14] MEDS: METOPROLOL TARTRATE 50 MG TAB 100 MG PO (21:55)
[2019-03-14] MEDS: POTASSIUM CHLORIDE 10 MEQ TABLET.ER 40 MEQ PO (21:57)
[2019-03-14] MEDS: INSULIN GLARGINE (*BKC) 100 UNITS/ML 25 UNITS SUB-Q (21:57)
[2019-03-14 22:00] VITALS: PULSE 93
[2019-03-15] VITALS (21 sets, daily range): BP systolic 86–116; BP diastolic 44–57; PULSE 64–103; RESP 16–24; TEMP 35.9–36.7; O2SAT 93–100
[2019-03-15] MEDS: ACETAMINOPHEN 325 MG TABLET 650 MG PO ×5 (01:06→23:14)
[2019-03-15 04:46] LABS: Basophils Percent Auto 0.4 % (0.2-1.2); Eosinophils Absolute Auto 0.1 K/mm3 (0-0.3); Eosinophils Percent Auto 2.3 % (0-4.4); Hematocrit 24.4 % (37.0-47.0); Immature Granulocyte Absolute 0.01 K/mm3 (0.00-0.031); Immature Granulocyte Percent A 0.2 % (0-0.5); Lymphocytes Absolute Auto 2.02 K/mm3 (0.9-3.2); Lymphocytes Percent Auto 42.8 % (18.3-44.2); Mean Corpuscular HGB Conc 26.6 g/dl (32-36); Mean Corpuscular Hemoglobin 16.9 pg (26-34); Mean Corpuscular Volume 63.5 fl (80-100); Mean Platelet Volume 10.5 fl (7.4-10.4); Monocytes Percent Auto 20.6 % (2.6-8.5); Neutrophils Absolute Auto 1.6 K/mm3 (1.3-6.7); Neutrophils Percent Auto 33.7 % (45.5-73.1); Nucleated Red Blood Cells Absolute Auto 0.1 K/mm3 (0.0-0.012); Nucleated Red Blood Cells Perc 1.1 % (0.0-0.2); Platelet Count Result 299 k/mm3 (150-375); Red Blood Count 3.84 M/mm3 (4.2-5.4); Red Cell Distribution Width 22.1 % (11.5-14.5); White Blood Count 4.7 K/mm3 (4.5-10.0)
[2019-03-15 05:12] LABS: Hemoglobin 6.5 g/dL (12.0-15.0)
[2019-03-15 05:14] LABS: Hypochromasia 2+ (NORMAL); Macrocytosis 1+ (NORMAL); Microcytosis 1+ (NORMAL); Platelet Estimate Adequate (Adequate)
[2019-03-15 05:18] LABS: Alanine Aminotransferase 18 U/L (4-35); Albumin Level 2.7 g/dL (3.5-5.1); Alkaline Phosphatase 94 U/L (38-126); Aspartate Amino Transferase 17 U/L (14-36); Bilirubin,Total 0.8 mg/dL (0.2-1.3); Blood Urea Nitrogen 61 mg/dL (7-17); Calcium 8.4 mg/dL (8.4-10.2); Carbon Dioxide 26 mmol/L (22-30); Chloride 97 mmol/L (98-107); Estimated CRCL calculation 26 ml/min; Estimated Glomerular Filt Rate 29; Glucose 144 mg/dL (65-105); Magnesium 1.8 mg/dL (1.6-2.3); Potassium 3.6 mmol/L (3.4-5.0); Sodium 134 mmol/L (137-145)
[2019-03-15 08:24] LABS: Glucose Point of Care 77 (65-105)
[2019-03-15] MEDS: TOLNAFTATE 1% POWDER 45 GM BTL 1 APPLIC TOPICAL ×2 (09:07→20:38)
[2019-03-15] MEDS: POTASSIUM CHLORIDE 10 MEQ TABLET.ER 40 MEQ PO ×3 (09:07→18:08)
[2019-03-15] MEDS: EUCERIN CREAM 120 GM JAR 1 APPLIC TOPICAL (09:08)
[2019-03-15] MEDS: THERAPEUTIC MULTIVITAMINS/MINERALS TAB (*BKC) 1 TABLET PO (09:08)
[2019-03-15] MEDS: METOPROLOL TARTRATE 50 MG TAB 100 MG PO (09:08)
[2019-03-15] MEDS: PANTOPRAZOLE 40 MG TABLET PO (09:08)
[2019-03-15] MEDS: FUROSEMIDE 40 MG TABLET PO (09:09)
[2019-03-15] MEDS: DOCUSATE SODIUM 100 MG CAPSULE PO (09:09)
[2019-03-15] MEDS: LORATADINE 10 MG TABLET PO (09:09)
[2019-03-15] MEDS: MAGNESIUM OXIDE 400 MG TABLET PO (09:09)
[2019-03-15] MEDS: metOLazone 5 MG TABLET PO (09:09)
--- NOTE | 2019-03-15 10:35 | WPDGICN ---
Assessment and Plan Additional Plan This is an 83-year-old white female patient I am asked to see for occult blood in stool. And anemia. Patient initially presented the hospital February 20, 2019. At that time she was felt to have right-sided congestive heart failure. Valvular heart disease. In chronic kidney disease. Patient underwent correction of her electrolytes and was in the [facility] rehab unit. She continued to have increasing edema. She was found to have occult blood in stool. And a persistent anemia. This prompted her to be readmitted to the hospital last evening. There has been no evidence for active GI bleeding. Bowel habits are described as normal. There is no evidence of bruising. There are no nose bleeds. No other bleeding has been identified. The patient denies abdominal pain. Past medical history is significant for diabetes mellitus. Congestive heart failure. GE reflux disease. She has a history of a DVT. Macular degeneration. Previous surgery includes hysterectomy and cholecystectomy. Current medications include Eliquis. Aspirin. Loratadine. Pantoprazole. Nystatin. Diltiazem. Colace. Insulin. Lasix. Metalazone. Metoprolol. And potassium. She has allergies to cetirizine, diazepam, gabapentin, levofloxacin, pregabalin Naya, zolpidem, hydrocortisone. Family history noncontributory. Physical exam reveals her to be uncomfortable at rest. She is anicteric. HEENT exam unremarkable. Lungs reveal a few rhonchi. Heart is without murmur. Abdomen is soft nontender with no organomegaly. Rectal exam is deferred. Labs reveal that patient has Hemoccult-positive stool . WBC 4.7. Hemoglobin 6.5. Hematocrit 24.4. MCV 63.5. BUN 61 creatinine 1.7 . Iron is low, % saturation is low. Ferritin is low. \impression 1. Iron deficiency anemia. 2. Occult blood in stool. This suggestion may have chronic GI blood loss. Undoubtedly aggravated by anticoagulated status. Agree with holding Eliquis. Iron deficiency may contribute to her congestive heart failure. Patient will be transfused to a stable hemoglobin. Subsequent GI endoscopy to evaluate for possible GI source of anemia and occult blood loss is advised. We will anticipate this tomorrow. 3. Congestive heart failure. Her significant iron deficiency anemia peers to be contributing to her congestive heart failure. Initially patient will be transfused with subsequent GI endoscopy. 4. Atrial fibrillation. 5.Eliquis anticoagulation. This will be held in light of her current anemia and occult blood in stool. Until it is determined safe to resume anticoagulation. 6 diabetes mellitus. Plan is for transfusion today. GI endoscopy in the morning after preparation later today. GI Consult Note Consult date/time: 03/15/19 10:35 HPI: Radha Salmeron is a 83 year old female [facility] Social History Social History (Updated 03/14/19 @ 16:10 by Ana Gomez NP) Social History: The patient resides at [facility]. She is . Her daughter Katelyn is her healthcare power of state farm agent. Code status: DNR per patient request Primary care physician: Dr. 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 Smoking status: Never smoker Second hand tobacco smoke exposure: No Alcohol intake: never Substance use: never Substance use type: does not use Living arrangements: [facility] Occupation/Education: other Gender identity (if verbalized by the patient): Female Spiritual care concerns: No Agree to blood products: Yes Meds Home Medications and Allergies Home Medications Medication Instructions Recorded Confirmed Type pen needle, diabetic 31 gauge x #100 each 12/26/18 03/14/19 Rx 06/23 aspirin 81 mg tablet,delayed 81 mg PO DAILY 01/11/19 03/14/19 History release blood sugar diagnostic #10 each 01/11/19 03/14/19 History barb
--- NOTE | 2019-03-15 12:22 | PM.CNCAR ---
Assessment and Plan Assessment and plan (1) Hypokalemia: Code(s): E87.6 - Hypokalemia Status: Acute Assessment and Plan: Daily basic metabolic panels and replace as needed (2) Chronic kidney disease, stage IV (severe): Code(s): N18.4 - Chronic kidney disease, stage 4 (severe) Status: Acute (3) Severe obstructive sleep apnea: Code(s): G47.33 - Obstructive sleep apnea (adult) (pediatric) Status: Chronic (4) Chronic atrial fibrillation: Code(s): I48.20 - Chronic atrial fibrillation, unspecified Status: Acute Assessment and Plan: Heart rate is controlled. I am going to reduce her metoprolol down to 50 mg p.o. b.i.d. in order to allow some blood pressure for diuresis. Continue diltiazem (5) Congestive heart failure: Qualifiers: Heart failure type: diastolic Heart failure chronicity: chronic Qualified Code(s): I50.32 - Chronic diastolic (congestive) heart failure Code(s): I50.9 - Heart failure, unspecified Status: Acute Assessment and Plan: Will start IV furosemide 40 mg IV q.8 hours. (6) Chronic anticoagulation: Code(s): Z79.01 - half-way (current) use of anticoagulants Status: Acute Assessment and Plan: Hold anticoagulation for now and stop aspirin. Transfuse at least 2 units of packed red blood cells Repeat PA and lateral chest x-ray tomorrow History of Present Illness History of Present Illness Consult date/time: 03/15/19 12:22 Requesting physician: Ana Gomez NP Consult reason: congestive heart failure Reason For Visit: Severe Anemia chf Narrative: Date of service 03/15/2019 History patient is an 83-year-old female who has a history of atrial fibrillation, renal failure, right heart failure, chronic anticoagulation. She had been admitted to this hospital and discharged to rehab. While in rehab though she was not getting any better in fact regressing. Her swelling was worsening. She was also becoming more anemic. She was becoming intermittently short of breath also. No chest pain, syncope, presyncope. She did complain of generalized weakness and fatigue and due to all the above symptoms the patient was transferred back from rehab to the inpatient setting for further workup evaluation including transfusion. Today she is still feeling poorly. She complains of significant leg pain due to edema. Her legs are still w weeping. She is also more anemic with a hemoglobin 6.5 Review of Systems Review of Systems: All systems reviewed & are unremarkable except as noted in HPI and below Constitutional: Constitutional: Reports weakness Eyes: Eyes: Denies blurry vision ENT: Comments: Hard of hearing Cardiovascular: Cardiovascular: Denies chest pain Respiratory: Respiratory: Reports dyspnea Gastrointestinal: Gastrointestinal: Reports abdominal pain Genitourinary: Genitourinary: Denies hematuria Musculoskeletal: Musculoskeletal: Denies neck pain Integumentary/Breasts: Skin/Breast: Reports wounds Neurologic: Denies confusion and Denies headache(s) Psychiatric: Psychiatric: Denies anxiety Endocrine: Endocrine: Denies flushing Hematologic/Lymphatic: Hematologic/Lymphatic: Denies easy bleeding Comments: Anemic Allergic/Immunologic: Allergic/Immunologic: Denies lip swelling PMFSH Past Medical History Medical History Anxiety CKD (chronic kidney disease) stage 4, GFR 15-29 ml/min With baseline creatinine between 1.6 and 1.9 Congestive heart failure (CHF) With most recent echocardiogram 12/2018 systolic function lower limits of normal with EF of 50-56%. Severe right ventricular enlargement, mild right ventricular hypokinesis. Severe biatrial enlargement. Mild mitral valve regurgitation. Mild pulmonary hypertension with RVSP of 36. Moderate tricuspid regurgitation. Severe pulmonic regurgitation. Atrial fibrillation Diabetes DVT (de
--- NOTE | 2019-03-15 12:35 | PM.IMPN ---
Progress Note: A&P Assessment and Plan (1) Anemia: Qualifiers: Anemia type: unspecified type Qualified Code(s): D64.9 - Anemia, unspecified Code(s): D64.9 - Anemia, unspecified Status: Acute Assessment and Plan: heme + stool iron panel c/w iron deficiency 2/5 antibody delaying transfusion f/u h/h (2) Congestive heart failure: Qualifiers: Heart failure type: diastolic Heart failure chronicity: chronic Qualified Code(s): I50.32 - Chronic diastolic (congestive) heart failure Code(s): I50.9 - Heart failure, unspecified Status: Acute Assessment and Plan: Continue with metoprolol, Zaroxolyn, and Lasix iv (3) Atrial fibrillation: Qualifiers: Atrial fibrillation type: permanent Qualified Code(s): I48.21 - Permanent atrial fibrillation Code(s): I48.91 - Unspecified atrial fibrillation Status: Acute Assessment and Plan: Eliquis and ASA on hold at this time. Continue with metoprolol and Cardizem. Cardiology has been following the patient this duration. (4) Type 2 diabetes mellitus with hyperglycemia, with long-term current use of insulin: Code(s): E11.65 - Type 2 diabetes mellitus with hyperglycemia; Z79.4 - terminal manager (current) use of insulin Status: Acute Assessment and Plan: Continue with long-acting insulin and sliding scale insulin. (5) Hypokalemia: Code(s): E87.6 - Hypokalemia Status: Acute Assessment and Plan: Replace as needed. Subjective Date/time seen: 03/15/19 12:35 Interval history: HERNADEZ with minimal exertion. Tired. Upper abdominal discomfort. Review of Systems Review of Systems: All systems reviewed & are unremarkable except as noted in HPI and below Exam Narrative: Exam Narrative: HEENT: EOMI, PERRL, pharyngeal mucosa pink and intact NECK: No JVD CHEST: Decr BS at bases HEART: NL S1/S2, regular, no murmur ABDOMEN: BS+, soft, nontender, no mass, no bruits EXTREMITIES: No cyanosis, 2+ pretibial edema NEUROLOGIC: CN intact and symmetric to inspection. MUSCULOSKELETAL: Tone and strength symmetric. PSYCH: Alert. Oriented to person, place, and time. Objective Data Vital Signs Vital Signs: Vital Signs - 24 hr 03/14/19 18:00 03/14/19 18:20 03/14/19 19:53 Temperature 96.7 F L 97.6 F Pulse Rate 83 92 94 Respiratory Rate 22 H 22 H Blood Pressure 97/40 L 103/56 L Pulse Oximetry 100 97 03/14/19 20:00 03/14/19 21:55 03/14/19 22:00 Temperature Pulse Rate 88 10 L 93 Respiratory Rate Blood Pressure Pulse Oximetry 03/15/19 00:00 03/15/19 02:00 03/15/19 04:00 Temperature 97.9 F 98.0 F Pulse Rate 81 80 89 Respiratory Rate 22 H 20 Blood Pressure 90/55 L 98/57 L Pulse Oximetry 96 96 03/15/19 06:00 03/15/19 07:11 03/15/19 08:00 Temperature 97.8 F Pulse Rate 82 87 69 Respiratory Rate 20 Blood Pressure 116/51 L Pulse Oximetry 94 03/15/19 09:08 03/15/19 09:48 03/15/19 10:00 Temperature Pulse Rate 77 84 Respiratory Rate Blood Pressure Pulse Oximetry 93 03/15/19 12:00 Temperature Pulse Rate 76 Respiratory Rate Blood Pressure Pulse Oximetry Intake/Output Intake/Output: Intake & Output 03/12/19 03/13/19 03/14/19 03/15/19 23:59 23:59 23:59 23:59 Intake Total 60 340 Balance 60 340 Meds/Results Medications: Active Medications Generic Name Dose Route Start Last Admin Trade Name Freq PRN Reason Stop Dose Admin Acetaminophen 650 mg 03/14/19 18:01 03/15/19 09:08 Tylenol Tablet PO 650 mg Q4H PRN Administration Headache Albuterol 5 mg 03/14/19 18:01 Albuterol Sulf Neb 2.5mg/0.5ml INHALATION Q6HRT PRN Shortness Of Breath Dextrose 12.5 gm 03/15/19 00:38 Dextrose 50% Syringe IV PUSH PRN PRN Hypoglycemia Protocol Diltiazem HCl 120 mg 03/15/19 09:00 03/15/19 09:10 Cardizem Cd PO 120 mg QAM LIO Administration Docu
[2019-03-15] MEDS: FUROSEMIDE INJ 40 MG/4 ML VIAL IV PUSH ×2 (13:21→18:09)
[2019-03-15 13:49] LABS: Glucose Point of Care 138 (65-105)
[2019-03-15] MEDS: SODIUM CHLORIDE 0.9% IV 250 ML 30 ML IV CONT (18:01)
[2019-03-15] MEDS: TUBING, BLOOD PLUM PUMP TUBING 1 EACH XX (18:02)
[2019-03-15] MEDS: GUAIFENESIN 200 MG/10 ML UDC PO ×2 (18:08→23:14)
[2019-03-15] MEDS: INSULIN ASPART (*BKC) 100 UNITS/ML SUB-Q (18:09)
[2019-03-15 18:33] LABS: Glucose Point of Care 203 (65-105)
--- NOTE | 2019-03-15 18:57 | PM.CNNEP ---
Assessment and Plan Assessment and plan (1) Chronic kidney disease, stage IV (severe): Code(s): N18.4 - Chronic kidney disease, stage 4 (severe) Status: Acute Assessment and Plan: The patient has chronic kidney disease stage 4. Her creatinine is 1.7 which is stable from a couple of years ago. So think her CKD stage 4 is stable. (2) Generalized edema: Code(s): R60.1 - Generalized edema Status: Acute Assessment and Plan: The patient has severe edema. This is multifactorial. The patient has severe sleep apnea which is contributing to pulmonary hypertension which leads to the swelling. She also has tricuspid regurgitation which certainly contributes to the swelling as well. The patient does have chronic kidney disease and so does have some impairment of sodium excretion. The patient has atrial fibrillation which decreases LV function and translates into higher pressures in the heart as well. She is not on any medication that would make her swell. She has had a venous Doppler ruling out DVT. At this point all we can do is continue diuretics. She is currently on furosemide 40 mg every 8 hours and metolazone 5 mg every other day. This is a reasonable combination. We will watch to the potassium levels and consider adding spironolactone if that is an issue. Sometimes a bicarbonate level rises as well and acetazolamide might help in that circumstance. (3) Severe obstructive sleep apnea: Code(s): G47.33 - Obstructive sleep apnea (adult) (pediatric) Status: Chronic (4) Atrial fibrillation with slow ventricular response: Code(s): I48.91 - Unspecified atrial fibrillation Status: Acute Assessment and Plan: Cardiology is seeing and managing. (5) Urinary tract infection: Qualifiers: Hematuria presence: without hematuria Urinary tract infection type: site unspecified Qualified Code(s): N39.0 - Urinary tract infection, site not specified Code(s): N39.0 - Urinary tract infection, site not specified Status: Acute Assessment and Plan: She has pyuria.Urine culture is pending. (6) Congestive heart failure: Qualifiers: Heart failure type: diastolic Heart failure chronicity: chronic Qualified Code(s): I50.32 - Chronic diastolic (congestive) heart failure Code(s): I50.9 - Heart failure, unspecified Status: Acute Assessment and Plan: Mostly right-sided as noted above. (7) Type 2 diabetes mellitus with hyperglycemia, with long-term current use of insulin: Code(s): E11.65 - Type 2 diabetes mellitus with hyperglycemia; Z79.4 - senior living (current) use of insulin Status: Acute Assessment and Plan: She is on insulin sliding scale and Accu-Cheks. History of Present Illness Reason for Consult Consult date: 03/15/19 Chief Complaint Chief complaint: Severe Anemia chf History of Present Illness Narrative: The patient's daughter is in the room. Radha is a very pleasant 83-year-old lady has multiple medical problems including chronic swelling managed with diuretics, GERD, congestive heart failure, diabetes, DVT, GERD, hypertension, sleep apnea, TIA, anemia, chronic kidney disease, venous stasis ulcers. She was in the rehab center and she developed swelling. She was transferred to the IMU. The patient does not feel well. She aches everywhere. She is generally very weak. She has lots of swelling in her legs. She does not have any bloody urine, foamy urine, kidney stones, or bladder infections. The patient's swelling has been going on for quite some time. Back in early 2018 she had an admission for congestive heart failure. Her diuretics were adjusted and she was discharged. At that time her creatinine was 1.6-1.8. At that time she had an echocardiogram which showed moderate tricuspid valve regurgitation and moderate pulmonary hypertension. The patient also has severe obstructive sle
[2019-03-15 20:24] LABS: Hematocrit 28.8 % (37.0-47.0); Hemoglobin 7.9 g/dL (12.0-15.0)
[2019-03-15] MEDS: METOPROLOL TARTRATE 50 MG TAB PO (20:38)
[2019-03-15 20:42] LABS: Glucose Point of Care 232 (65-105)
[2019-03-15] MEDS: INSULIN GLARGINE (*BKC) 100 UNITS/ML 25 UNITS SUB-Q (21:46)
[2019-03-16] VITALS (18 sets, daily range): BP systolic 100–123; BP diastolic 43–107; PULSE 69–94; RESP 16–24; TEMP 36.2–36.6; O2SAT 91–100
[2019-03-16 05:25] LABS: Hemoglobin 8.1 g/dL (12.0-15.0); Mean Corpuscular HGB Conc 27.9 g/dl (32-36); Mean Corpuscular Hemoglobin 18.1 pg (26-34); Mean Corpuscular Volume 64.7 fl (80-100); Mean Platelet Volume 10.2 fl (7.4-10.4); Platelet Count Result 325 k/mm3 (150-375); Red Blood Count 4.48 M/mm3 (4.2-5.4); Red Cell Distribution Width 23.4 % (11.5-14.5)
[2019-03-16 05:36] LABS: Blood Urea Nitrogen 62 mg/dL (7-17); Calcium 8.4 mg/dL (8.4-10.2); Carbon Dioxide 28 mmol/L (22-30); Chloride 97 mmol/L (98-107); Estimated CRCL calculation 26 ml/min; Estimated Glomerular Filt Rate 29; Glucose 118 mg/dL (65-105); Phosphorus 3.5 mg/dL (2.5-4.5); Potassium 3.1 mmol/L (3.4-5.0); Sodium 137 mmol/L (137-145)
[2019-03-16] MEDS: POTASSIUM CHLORIDE 10 MEQ TABLET.ER 40 MEQ PO ×3 (09:49→21:08)
[2019-03-16] MEDS: MAGNESIUM OXIDE 400 MG TABLET PO (09:49)
[2019-03-16] MEDS: METOPROLOL TARTRATE 50 MG TAB PO ×2 (09:51→21:08)
[2019-03-16] MEDS: THERAPEUTIC MULTIVITAMINS/MINERALS TAB (*BKC) 1 TABLET PO (09:51)
[2019-03-16] MEDS: EUCERIN CREAM 120 GM JAR 1 APPLIC TOPICAL (09:52)
[2019-03-16] MEDS: TOLNAFTATE 1% POWDER 45 GM BTL 1 APPLIC TOPICAL ×2 (09:52→21:09)
[2019-03-16] MEDS: PANTOPRAZOLE 40 MG TABLET PO (09:52)
[2019-03-16] MEDS: DOCUSATE SODIUM 100 MG CAPSULE PO ×2 (09:52→21:08)
[2019-03-16] MEDS: FUROSEMIDE INJ 40 MG/4 ML VIAL IV PUSH ×3 (09:52→17:51)
[2019-03-16] MEDS: LORATADINE 10 MG TABLET PO (09:52)
[2019-03-16] MEDS: GUAIFENESIN 200 MG/10 ML UDC PO ×2 (10:11→23:28)
[2019-03-16] MEDS: ACETAMINOPHEN 325 MG TABLET 650 MG PO ×2 (10:14→22:17)
--- NOTE | 2019-03-16 11:14 | WPDGIPROGNO ---
Progress Note: A&P Additional Plan Patient more alert and more comfortable this morning. Received transfusion yesterday and diuresis. Physical exam reveals her to be hard of hearing. She is more alert. Responds appropriately to questions. No signs of active GI blood loss noted. She denies ongoing abdominal pain. Labs reveal hemoglobin 8.1, hematocrit 29, MCV 64. BUN 62, creatinine 1.7, iron is 11, TIBC 388, 3% saturation. Ferritin 16.8. Impression 1. Iron deficiency anemia. 2. Occult blood in stool. Plan is for GI endoscopy to assess for etiology of iron deficiency anemia. Plan to accomplish this tomorrow after preparation today. 3. Congestive heart failure. Appears to have been worsened by a significant anemia. No active bleeding noted however. Plan to continue to monitor hemoglobin. Preparation for patient to have both colonoscopy an EGD in the morning on Wednesday. Subjective Date/time seen: 03/16/19 11:14 Objective Data Vital Signs Vital Signs: Vital Signs - 24 hr 03/15/19 12:00 03/15/19 14:00 03/15/19 15:38 Temperature 36.2 C L 36.1 C L Pulse Rate 75 80 81 Respiratory Rate 18 16 Blood Pressure 86/45 L 95/53 L Pulse Oximetry 96 96 03/15/19 15:45 03/15/19 15:54 03/15/19 16:00 Temperature 36.1 C L 35.9 C L Pulse Rate 81 77 72 Respiratory Rate 18 18 Blood Pressure 102/54 L 96/46 L Pulse Oximetry 96 96 03/15/19 18:00 03/15/19 20:00 03/15/19 20:01 Temperature 36.4 C Pulse Rate 83 85 103 H Respiratory Rate 24 H Blood Pressure 106/44 L Pulse Oximetry 95 03/15/19 20:38 03/15/19 22:00 03/15/19 23:11 Temperature 36.4 C Pulse Rate 86 78 64 Respiratory Rate 22 H Blood Pressure 97/49 L Pulse Oximetry 100 03/16/19 00:00 03/16/19 02:00 03/16/19 03:36 Temperature 36.2 C L Pulse Rate 90 80 74 Respiratory Rate 20 Blood Pressure 100/43 L Pulse Oximetry 99 03/16/19 04:00 03/16/19 06:00 03/16/19 08:00 Temperature 36.6 C Pulse Rate 81 81 88 Respiratory Rate 24 H Blood Pressure 102/60 Pulse Oximetry 99 03/16/19 09:25 03/16/19 09:51 Temperature Pulse Rate 90 Respiratory Rate Blood Pressure Pulse Oximetry 91 Intake/Output Intake/Output: Intake & Output 03/13/19 03/14/19 03/15/19 03/16/19 23:59 23:59 23:59 23:59 Intake Total 60 1410 1000 Output Total 500 Balance 60 910 1000 Meds/Results Medications: Active Medications Generic Name Dose Route Start Last Admin Trade Name Freq PRN Reason Stop Dose Admin Acetaminophen 650 mg 03/14/19 18:01 03/16/19 10:14 Tylenol Tablet PO 650 mg Q4H PRN Administration Headache Albuterol 5 mg 03/14/19 18:01 Albuterol Sulf Neb 2.5mg/0.5ml INHALATION Q6HRT PRN Shortness Of Breath Dextrose 12.5 gm 03/15/19 00:38 Dextrose 50% Syringe IV PUSH PRN PRN Hypoglycemia Protocol Diltiazem HCl 120 mg 03/15/19 09:00 03/16/19 09:49 Cardizem Cd PO 120 mg QAM LIO Administration Docusate Sodium 100 mg 03/14/19 21:00 03/16/19 09:52 Colace Capsule PO 100 mg Q12HR LIO Administration Furosemide 40 mg 03/15/19 13:00 03/16/19 09:52 Lasix Inj IV PUSH 40 mg TID LIO Administration Glucagon 1 mg 03/15/19 00:38 Glucagon For Inj IM PRN PRN Hypoglycemia Protocol Glucose 15 gm 03/15/19 00:38 Glutose 15 PO PRN PRN Hypoglycemia Protocol Guaifenesin 200 mg 03/14/19 18:01 03/16/19 10:11 Guaifenesin Liq PO 200 mg Q4H PRN Administration Cough Dextrose 1,000 mls @ 100 mls/hr 03/15/19 00:38 Dextrose 5% 1,000 Ml IVPB PRN PRN Hypoglycemia Protocol Insulin Aspart 3 - 6 units 03/15/19 08:00 03/16/19 09:50 Novolog SUB-Q Not Given TIDWM LIO Protocol Insulin Glargine 25 units 03/14/19 21:00 03/15/19 21:46 Lantus SUB-Q 25 units HS LIO Administration Ipratropium Britton 0.5 mg 03/14/19 18:01 Atrovent Neb INHALATION
--- NOTE | 2019-03-16 12:07 | PM.PNCARD ---
Progress Note: A&P Assessment and Plan (1) Hypokalemia: Code(s): E87.6 - Hypokalemia Status: Acute Assessment and Plan: Daily basic metabolic panels and replace as needed extra potassium 40 mEq p.o. x1 today (2) Chronic kidney disease, stage IV (severe): Code(s): N18.4 - Chronic kidney disease, stage 4 (severe) Status: Acute Assessment and Plan: renal function is stable (3) Severe obstructive sleep apnea: Code(s): G47.33 - Obstructive sleep apnea (adult) (pediatric) Status: Chronic (4) Chronic atrial fibrillation: Code(s): I48.20 - Chronic atrial fibrillation, unspecified Status: Acute Assessment and Plan: Heart rate is controlled. continue lower dose metoprolol at 50 mg p.o. b.i.d. in order to allow some blood pressure for diuresis. Continue diltiazem (5) Congestive heart failure: Qualifiers: Heart failure type: diastolic Heart failure chronicity: chronic Qualified Code(s): I50.32 - Chronic diastolic (congestive) heart failure Code(s): I50.9 - Heart failure, unspecified Status: Acute Assessment and Plan: continue IV furosemide 40 mg IV q.8 hours. 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 Planning for upper and lower scope tomorrow Subjective Date/time seen: 03/16/19 12:07 Interval history: Admitted for worsening edema, shortness of breath, fatigue and tiredness and anemia Date of service 03/16/2019 She feels much better today. She did receive 1 unit of blood and hemoglobin is now Around 8. She thinks her legs may be slightly less swollen. no shortness of breath no chest pain Review of Systems Review of Systems: All systems reviewed & are unremarkable except as noted in HPI and below Constitutional: Constitutional: Denies headache(s) and Reports weakness Eyes: Eyes: Denies blurry vision ENT: Denies headache(s), Denies lip swelling and Denies neck pain Cardiovascular: Cardiovascular: Denies chest pain and Reports dyspnea Respiratory: Respiratory: Reports dyspnea Gastrointestinal: Gastrointestinal: Reports abdominal pain Genitourinary: Genitourinary: Denies hematuria Musculoskeletal: Musculoskeletal: Denies neck pain Integumentary/Breasts: Skin/Breast: Reports wounds Neurologic: Denies confusion, Denies headache(s) and Reports weakness Psychiatric: Psychiatric: Denies anxiety and Denies confusion Endocrine: Endocrine: Denies flushing Hematologic/Lymphatic: Hematologic/Lymphatic: Denies easy bleeding Allergic/Immunologic: Allergic/Immunologic: Denies lip swelling Exam Narrative: Exam Narrative: Alert and oriented. Appears to be in no acute distress Const: General: no acute distress; No confusion Orientation/consciousness: No confusion HENMT: General nose exam: Normal nares present Eyes: Sclera: sclerae normal Neck: Neck: supple and no JVD Chest: Other: No reproducible chest wall pain to palpation Resp: Auscultation: rales and diminished lung sounds Cardio: Rate: regular rate Rhythm: abnormal rhythm irregularly irregular GI: Inspection: non-distended Skin: Other: Weeping noted to bilateral lower extremities Neuro: General: No confusion Cognition (Neuro): normal cognition Extrem: General: edema and pedal edema Psych: Affect: normal affect and Sad affect present Objective Data Vital Signs Vital Signs: Vital Signs - 24 hr 03/15/19 14:00 03/15/19 15:38 03/15/19 15:45 Temperature 36.1 C L 36.1 C L Pulse Rate 80 81 81 Respiratory Rate 16 18 Blood Pressure 95/53 L 102/54 L Pulse Oximetry 96 96 03/15/19 15:54 03/15/19 16:00 03/15/19 18:00 Temperature 35.9 C L Pulse Rate 77 72 83 Respiratory Rate 18 Blood Pressure 96/46 L Pulse Oximetry 96 03/15/19 20:00 03/15/19 20:01 03/15/19 20:38 Temper
--- NOTE | 2019-03-16 13:32 | PM.IMPN ---
Progress Note: A&P Assessment and Plan (1) Anemia: Qualifiers: Anemia type: unspecified type Qualified Code(s): D64.9 - Anemia, unspecified Code(s): D64.9 - Anemia, unspecified Status: Acute Assessment and Plan: heme + stool iron panel c/w iron deficiency 2/ antibody delaying transfusion 03/16 hgb 8.1; endoscopic evaluation in AM (2) Congestive heart failure: Qualifiers: Heart failure type: diastolic Heart failure chronicity: chronic Qualified Code(s): I50.32 - Chronic diastolic (congestive) heart failure Code(s): I50.9 - Heart failure, unspecified Status: Acute Assessment and Plan: Continue with metoprolol, Zaroxolyn, and Lasix iv (3) Atrial fibrillation: Qualifiers: Atrial fibrillation type: permanent Qualified Code(s): I48.21 - Permanent atrial fibrillation Code(s): I48.91 - Unspecified atrial fibrillation Status: Acute Assessment and Plan: Eliquis and ASA on hold at this time. Continue with metoprolol. (4) Type 2 diabetes mellitus with hyperglycemia, with long-term current use of insulin: Code(s): E11.65 - Type 2 diabetes mellitus with hyperglycemia; Z79.4 - prison (current) use of insulin Status: Acute Assessment and Plan: Continue with basal and sliding scale insulin. (5) Hypokalemia: Code(s): E87.6 - Hypokalemia Status: Acute Assessment and Plan: Replace as needed. Subjective Date/time seen: 03/16/19 13:32 Interval history: HERNADEZ with minimal exertion. Tired. Denied pain. Tolerated clear liquids. Review of Systems Review of Systems: All systems reviewed & are unremarkable except as noted in HPI and below Exam Narrative: Exam Narrative: HEENT: EOMI, PERRL, pharyngeal mucosa pink and intact NECK: No JVD CHEST: Decr BS at bases HEART: NL S1/S2, regular, no murmur ABDOMEN: BS+, soft, nontender, no mass, no bruits EXTREMITIES: No cyanosis, 2+ pretibial edema NEUROLOGIC: CN intact and symmetric to inspection. MUSCULOSKELETAL: Tone and strength symmetric. PSYCH: Alert. Oriented to person, place, and time. Objective Data Vital Signs Vital Signs: Vital Signs - 24 hr 03/15/19 14:00 03/15/19 15:38 03/15/19 15:45 Temperature 97.0 F L 96.9 F L Pulse Rate 80 81 81 Respiratory Rate 16 18 Blood Pressure 95/53 L 102/54 L Pulse Oximetry 96 96 03/15/19 15:54 03/15/19 16:00 03/15/19 18:00 Temperature 96.6 F L Pulse Rate 77 72 83 Respiratory Rate 18 Blood Pressure 96/46 L Pulse Oximetry 96 03/15/19 20:00 03/15/19 20:01 03/15/19 20:38 Temperature 97.6 F Pulse Rate 85 103 H 86 Respiratory Rate 24 H Blood Pressure 106/44 L Pulse Oximetry 95 03/15/19 22:00 03/15/19 23:11 03/16/19 00:00 Temperature 97.6 F Pulse Rate 78 64 90 Respiratory Rate 22 H Blood Pressure 97/49 L Pulse Oximetry 100 03/16/19 02:00 03/16/19 03:36 03/16/19 04:00 Temperature 97.2 F L Pulse Rate 80 74 81 Respiratory Rate 20 Blood Pressure 100/43 L Pulse Oximetry 99 03/16/19 06:00 03/16/19 08:00 03/16/19 09:25 Temperature 97.8 F Pulse Rate 81 88 Respiratory Rate 24 H Blood Pressure 102/60 Pulse Oximetry 91 91 03/16/19 09:51 Temperature Pulse Rate 90 Respiratory Rate Blood Pressure Pulse Oximetry Intake/Output Intake/Output: Intake & Output 03/13/19 03/14/19 03/15/19 03/16/19 23:59 23:59 23:59 23:59 Intake Total 60 1410 1000 Output Total 500 Balance 60 910 1000 Meds/Results Medications: Active Medications Generic Name Dose Route Start Last Admin Trade Name Freq PRN Reason Stop Dose Admin Acetaminophen 650 mg 03/14/19 18:01 03/16/19 10:14 Tylenol Tablet PO 650 mg Q4H PRN Administration Headache Albuterol 5 mg 03/14/19 18:01 Albuterol Sulf Neb 2.5mg/0.5ml INHALATION Q6HRT PRN Shortness Of Breath Dextrose 12.5 gm 03/15/19 00:38 Dextrose 50% Syr
--- NOTE | 2019-03-16 15:01 | PM.PNNEP ---
Progress Note: A&P Assessment and Plan (1) Chronic kidney disease, stage IV (severe): Code(s): N18.4 - Chronic kidney disease, stage 4 (severe) Status: Acute Assessment and Plan: The patient has chronic kidney disease stage 4. Probably due to diabetes and hypertension. Chronic prerenal azotemia from the diuretics is also certainly in play. (2) Generalized edema: Code(s): R60.1 - Generalized edema Status: Acute Assessment and Plan: The patient has severe edema. This is multifactorial. The patient has severe sleep apnea which is contributing to pulmonary hypertension which leads to the swelling. She also has tricuspid regurgitation which certainly contributes to the swelling as well. The patient does have chronic kidney disease and so does have some impairment of sodium excretion. Long discussion with the daughter, Ainsley. We discussed the various issues involved with her tricuspid regurgitation. We discussed that the tricuspid valve cannot be replaced or repaired. So were stuck treating with diuretics. We try diuretics as much as we can to help the swelling. However at some point the creatinine would rise at which point we would decrease diuretics. I described this as a see soft between having too much fluid and to high a creatinine. She seemed to understand what is going on. The patient is on metolazone every other day and furosemide 40 3 times a day. Another long discussion with Cece of Cardiology. More than 25 minutes were spent in conversation with daughter and with tool lapper hand apart from clinical activity. (3) Severe obstructive sleep apnea: Code(s): G47.33 - Obstructive sleep apnea (adult) (pediatric) Status: Chronic (4) Atrial fibrillation with slow ventricular response: Code(s): I48.91 - Unspecified atrial fibrillation Status: Acute Assessment and Plan: Cardiology is seeing and managing. (5) Urinary tract infection: Qualifiers: Hematuria presence: without hematuria Urinary tract infection type: site unspecified Qualified Code(s): N39.0 - Urinary tract infection, site not specified Code(s): N39.0 - Urinary tract infection, site not specified Status: Acute Assessment and Plan: She has pyuria.Urine culture is pending. (6) Congestive heart failure: Qualifiers: Heart failure type: diastolic Heart failure chronicity: chronic Qualified Code(s): I50.32 - Chronic diastolic (congestive) heart failure Code(s): I50.9 - Heart failure, unspecified Status: Acute Assessment and Plan: Mostly right-sided as noted above. 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 Subjective Date/time seen: 03/16/19 15:01Well developed well-nourished in no acute distress Lungs clear Heart regular without rub Abdomen bowel sounds positive soft nontender Extremities 3+ edema with bandages. Skin no rash Interval history: Patient is sleeping she was easily aroused. No chest pain or shortness of breath. Still swollen. Review of Systems Cardiovascular: Cardiovascular: Reports no additional cardiovascular complaints Respiratory: Respiratory: Reports no additional respiratory complaints Gastrointestinal: Gastrointestinal: Reports no additional gastrointestinal complaints Genitourinary: Genitourinary: Reports no additional female genitourinary complaints Objective Data Vital Signs Vital Signs: Vital Signs - 24 hr 03/15/19 15:38 03/15/19 15:45 03/15/19 15:54 Temperature 36.1 C L 36.1 C L 35.9 C L Pulse Rate 81 81 77 Respiratory Rate 16 18 18 Blood Pressure 95/53 L 102/54 L 96/46 L Pulse Oximetry 96 96 96 03/15/19 16:00 03/15/19
[2019-03-16] MEDS: PEG (High)/E-LYTE SOLN 4,000 ML BTL 4000 ML PO ×2 (15:21→15:22)
[2019-03-16 17:49] LABS: Glucose Point of Care 257 (65-105)
[2019-03-16] MEDS: SILVERGEL (ELTA) 45 ML 1 APPLIC TOPICAL (17:50)
[2019-03-16] MEDS: INSULIN ASPART (*BKC) 100 UNITS/ML SUB-Q (17:50)
[2019-03-16 18:03] LABS: Glucose Point of Care 199 (65-105)
[2019-03-16 21:07] LABS: Glucose Point of Care 139 (65-105)
[2019-03-17] VITALS (20 sets, daily range): BP systolic 98–131; BP diastolic 41–70; PULSE 60–108; RESP 14–24; TEMP 36.1–36.5; O2SAT 96–100
[2019-03-17 05:43] LABS: Hematocrit 29.8 % (37.0-47.0); Hemoglobin 8.4 g/dL (12.0-15.0); Mean Corpuscular HGB Conc 28.2 g/dl (32-36); Mean Corpuscular Hemoglobin 18.2 pg (26-34); Mean Corpuscular Volume 64.5 fl (80-100); Platelet Count Result 311 k/mm3 (150-375); Red Blood Count 4.62 M/mm3 (4.2-5.4); Red Cell Distribution Width 23.9 % (11.5-14.5)
[2019-03-17 05:53] LABS: Blood Urea Nitrogen 47 mg/dL (7-17); Calcium 8.4 mg/dL (8.4-10.2); Carbon Dioxide 34 mmol/L (22-30); Chloride 93 mmol/L (98-107); Estimated CRCL calculation 31 ml/min; Estimated Glomerular Filt Rate 36; Glucose 79 mg/dL (65-105); Magnesium 1.3 mg/dL (1.6-2.3); Potassium 2.5 mmol/L (3.4-5.0); Sodium 140 mmol/L (137-145)
[2019-03-17 05:57] LABS: Albumin Level 2.8 g/dL (3.5-5.1); Phosphorus 2.7 mg/dL (2.5-4.5)
[2019-03-17] MEDS: MAGNESIUM SULF 4 GM/WATER100ML 4 GM/100 ML BAG IVPB (06:42)
[2019-03-17] MEDS: POTASSIUM CHLORIDE 10 MEQ TABLET 40 MEQ PO (06:45)
--- NOTE | 2019-03-17 08:44 | PM.IMPN ---
Progress Note: A&P Assessment and Plan (1) Anemia: Qualifiers: Anemia type: unspecified type Qualified Code(s): D64.9 - Anemia, unspecified Code(s): D64.9 - Anemia, unspecified Status: Acute Assessment and Plan: heme + stool iron panel c/w iron deficiency 03/15 antibody delaying transfusion 03/16 hgb 8.1; endoscopic evaluation 03/17 03/17 hgb 8.4; endoscopies pending (2) Congestive heart failure: Qualifiers: Heart failure type: diastolic Heart failure chronicity: chronic Qualified Code(s): I50.32 - Chronic diastolic (congestive) heart failure Code(s): I50.9 - Heart failure, unspecified Status: Acute Assessment and Plan: Continue with metoprolol, Zaroxolyn, and Lasix iv (3) Atrial fibrillation: Qualifiers: Atrial fibrillation type: permanent Qualified Code(s): I48.21 - Permanent atrial fibrillation Code(s): I48.91 - Unspecified atrial fibrillation Status: Acute Assessment and Plan: Eliquis and ASA on hold at this time. Continue with metoprolol. (4) Type 2 diabetes mellitus with hyperglycemia, with long-term current use of insulin: Code(s): E11.65 - Type 2 diabetes mellitus with hyperglycemia; Z79.4 - [facility] (current) use of insulin Status: Acute Assessment and Plan: Continue with basal and sliding scale insulin 03/17 FBS 99 after basal insulin held (5) Hypokalemia: Code(s): E87.6 - Hypokalemia Status: Acute Assessment and Plan: Replace mag and K iv and po 2/7 AM furosemide and metolazone held f/u lab Subjective Date/time seen: 03/17/19 08:44 Interval history: Tired from endoscopy prep. Denied pain. Diarrhea with prep. No bleeding. No chest pain. No shortness of breath at rest. Swelling improved. Review of Systems Review of Systems: All systems reviewed & are unremarkable except as noted in HPI and below Exam Narrative: Exam Narrative: HEENT: EOMI, PERRL, pharyngeal mucosa pink and intact NECK: No JVD CHEST: Decr BS at bases HEART: NL S1/S2, regular, no murmur ABDOMEN: BS+, soft, nontender, no mass, no bruits EXTREMITIES: No cyanosis, 1+ pretibial edema NEUROLOGIC: CN intact and symmetric to inspection. MUSCULOSKELETAL: Tone and strength symmetric. PSYCH: Alert. Oriented to person, place, and time. Objective Data Vital Signs Vital Signs: Vital Signs - 24 hr 03/16/19 09:25 03/16/19 09:51 03/16/19 10:00 Temperature Pulse Rate 90 87 Respiratory Rate Blood Pressure Pulse Oximetry 91 03/16/19 11:30 03/16/19 12:00 03/16/19 14:00 Temperature 97.7 F Pulse Rate 84 84 80 Respiratory Rate 16 16 Blood Pressure 103/56 L Pulse Oximetry 100 100 03/16/19 16:00 03/16/19 18:00 03/16/19 20:00 Temperature 97.3 F L Pulse Rate 81 85 91 Respiratory Rate 22 H Blood Pressure 123/107 H Pulse Oximetry 98 03/16/19 20:34 03/16/19 21:08 03/16/19 22:00 Temperature 97.3 F L Pulse Rate 81 81 94 Respiratory Rate 22 H Blood Pressure 121/59 L Pulse Oximetry 98 03/17/19 00:00 03/17/19 02:00 03/17/19 04:00 Temperature 97.0 F L Pulse Rate 82 92 79 Respiratory Rate 22 H Blood Pressure 105/48 L Pulse Oximetry 100 03/17/19 04:38 03/17/19 06:00 03/17/19 07:55 Temperature 97.0 F L 97 F L Pulse Rate 103 H 83 70 Respiratory Rate 20 20 Blood Pressure 101/53 L 112/55 L Pulse Oximetry 99 100 Intake/Output Intake/Output: Intake & Output 03/14/19 03/15/19 03/16/19 03/17/19 23:59 23:59 23:59 23:59 Intake Total 60 1410 1840 3550 Output Total 500 1100 Balance 60 334 386 7284 Meds/Results Medications: Active Medications Generic Name Dose Route Start Last Admin Trade Name Freq PRN Reason Stop Dose Admin Acetaminophen 650 mg 03/14/19 18:01 03/16/19 22:17 Tylenol Tablet PO 650 mg Q4H PRN Administration Headache Albuterol 5 mg 03/14/19 18:01 Albuterol Sulf Neb 2.5mg/0.5ml INH
--- NOTE | 2019-03-17 09:02 | PCOTNOTE ---
Pt. attempted this A.M. for OT treatment session. Pt. was sleeping, daughter present and stated she has no slept all night due to prepping for a colonoscopy. Pt.'s daughter declined Pt. to be woke up for services this A.M. prior to having the test performed.
[2019-03-17] MEDS: LACTATED RINGERS 1,000 ML 150 ML IV CONT (10:02)
[2019-03-17 10:06] LABS: Glucose Point of Care 99 (65-105)
--- NOTE | 2019-03-17 11:51 | PM.PNNEP ---
Progress Note: A&P Assessment and Plan (1) Chronic kidney disease, stage IV (severe): Code(s): N18.4 - Chronic kidney disease, stage 4 (severe) Status: Acute Assessment and Plan: The patient has chronic kidney disease stage 4. Probably due to diabetes, hypertension, and chronic pre renal azotemia. (2) Generalized edema: Code(s): R60.1 - Generalized edema Status: Acute Assessment and Plan: The patient has severe edema. This is multifactorial. Due to right heart failure, sleep apnea, atrial fibrillation. Getting diuretics now. Her creatinine is better today. We could probably increase her diuretics but I will wait till tomorrow since she had her colonoscopy prep yesterday and her colonoscopy today. (3) Severe obstructive sleep apnea: Code(s): G47.33 - Obstructive sleep apnea (adult) (pediatric) Status: Chronic (4) Atrial fibrillation with slow ventricular response: Code(s): I48.91 - Unspecified atrial fibrillation Status: Acute Assessment and Plan: Cardiology is seeing and managing. (5) Urinary tract infection: Qualifiers: Hematuria presence: without hematuria Urinary tract infection type: site unspecified Qualified Code(s): N39.0 - Urinary tract infection, site not specified Code(s): N39.0 - Urinary tract infection, site not specified Status: Acute Assessment and Plan: She has pyuria.Urine culture is pending. (6) Congestive heart failure: Qualifiers: Heart failure type: diastolic Heart failure chronicity: chronic Qualified Code(s): I50.32 - Chronic diastolic (congestive) heart failure Code(s): I50.9 - Heart failure, unspecified Status: Acute Assessment and Plan: Mostly right-sided as noted above. (7) Type 2 diabetes mellitus with hyperglycemia, with long-term current use of insulin: Code(s): E11.65 - Type 2 diabetes mellitus with hyperglycemia; Z79.4 - prison (current) use of insulin Status: Acute Assessment and Plan: She is on insulin sliding scale and Accu-Cheks. Subjective Date/time seen: 03/17/19 11:51 Interval history: Patient is sleeping she was easily aroused. She is waiting for her colonoscopy. Breathing okay. Review of Systems Cardiovascular: Cardiovascular: Reports no additional cardiovascular complaints Gastrointestinal: Gastrointestinal: Reports no additional gastrointestinal complaints Genitourinary: Genitourinary: Reports no additional female genitourinary complaints Exam Narrative: Exam Narrative: Well developed well-nourished in no acute distress Lungs clear Heart regular without rub Abdomen bowel sounds positive soft nontender Extremities 2 to3+ edema Skin no rash Objective Data Vital Signs Vital Signs: Vital Signs - 24 hr 03/16/19 12:00 03/16/19 14:00 03/16/19 16:00 Temperature 36.3 C L Pulse Rate 84 80 81 Respiratory Rate 16 22 H Blood Pressure 123/107 H Pulse Oximetry 100 98 03/16/19 18:00 03/16/19 20:00 03/16/19 20:34 Temperature 36.3 C L Pulse Rate 85 91 81 Respiratory Rate 22 H Blood Pressure 121/59 L Pulse Oximetry 98 03/16/19 21:08 03/16/19 22:00 03/17/19 00:00 Temperature 36.1 C L Pulse Rate 81 94 82 Respiratory Rate 22 H Blood Pressure 105/48 L Pulse Oximetry 100 03/17/19 02:00 03/17/19 04:00 03/17/19 04:38 Temperature 36.1 C L Pulse Rate 92 79 103 H Respiratory Rate 20 Blood Pressure 101/53 L Pulse Oximetry 99 03/17/19 06:00 03/17/19 07:55 Temperature 36.1 C L Pulse Rate 83 70 Respiratory Rate 20 Blood Pressure 112/55 L Pulse Oximetry 100 Intake/Output Intake/Output: Intake & Output 03/14/19 03/15/19 03/16/19 03/17/19 23:59 23:59 23:59 23:59 Intake Total 60 1410 1840 3550 Output Total 500 1100 Balance 60 352 620 2858 Meds/Results Medications: Active Medications Generic Name Dose Route Start Last Admin T
--- NOTE | 2019-03-17 12:53 | PC.NURSE ---
patient take off the floor to OR with nurse.
--- NOTE | 2019-03-17 12:55 | WPDANESEPPF ---
Anes - Initial Pre Proc Eval Procedure: Operation Date: 03/17/19 12:00 Proposed Procedures p Esophagogastroduodenoscopy & Colonoscopy - Jesse Perales MD Date/Time: 03/17/19 12:55 Surgeon: Lynn Phillips MD Pre Op Diagnosis: Severe Anemia chf Patient Data Age: 83 Gender: F Height: 1.63 m Weight: 102 kg Last Vital Signs Temp 36.1 C L 03/17/19 07:55 Pulse 70 03/17/19 07:55 Resp 20 03/17/19 07:55 BP 112/55 L 03/17/19 07:55 Pulse Ox 100 03/17/19 07:55 Allergies Allergy/AdvReac Type Severity Reaction Status Date / Time adhesive tape Allergy Unknown Rash Verified 03/14/19 19:30 cetirizine Allergy Unknown Swelling Verified 03/14/19 19:30 of Lip/Tongue/Throat diazepam Allergy Unknown Cough Verified 03/14/19 19:30 gabapentin Allergy Unknown Confusion Verified 03/14/19 19:30 levetiracetam Allergy Unknown Confusion Verified 03/14/19 19:30 levofloxacin Allergy Unknown Confusion Verified 03/14/19 19:30 pregabalin Allergy Unknown Confusion Verified 03/14/19 19:30 zolpidem Allergy Unknown Hallucinati Verified 03/14/19 19:30 ng hydrocodone AdvReac Intermediate Other Verified 03/14/19 19:30 sleep aids - all AdvReac Severe Confusion Uncoded 03/14/19 19:30 Home Medications Medication Instructions Recorded Confirmed Type pen needle, diabetic 31 gauge x #100 each 12/26/18 03/14/19 Rx 06/23 aspirin 81 mg tablet,delayed 81 mg PO DAILY 01/11/19 03/14/19 History release blood sugar diagnostic #10 each 01/11/19 03/14/19 History loratadine 10 mg tablet 10 mg PO DAILY 01/11/19 03/14/19 History pantoprazole 40 mg tablet,delayed 40 mg PO QAM 01/11/19 03/14/19 History release oxybutynin chloride 10 mg PO DAILY 01/22/19 03/14/19 History nystatin 1 applic TOPICAL BID 02/20/19 03/14/19 History diltiazem HCl 120 mg PO QAM #30 cap 02/26/19 03/14/19 Rx docusate sodium 100 mg PO Q12HR #60 cap 02/26/19 03/14/19 Rx furosemide 40 mg PO BID #60 tablet 02/26/19 03/14/19 Rx insulin aspart U-100 [Novolog 3 - 6 unit SUBCUT TIDWM #10 ml 02/26/19 03/14/19 Rx U-100 Insulin aspart] metolazone 5 mg PO Q48H #14 tablet 02/26/19 03/14/19 Rx metoprolol tartrate 100 mg PO Q12HR #60 tablet 02/26/19 03/14/19 Rx potassium chloride [K-Tab] 40 meq PO TID #30 tablet 02/26/19 03/14/19 Rx acetaminophen [Tylenol] 650 mg PO Q4H PRN 03/14/19 03/14/19 History albuterol sulfate 5 mg INHALATION Q6HRT PRN 03/14/19 03/14/19 History apixaban [Eliquis] 2.5 mg PO BID 03/14/19 03/14/19 History guaifenesin 200 mg PO Q4H PRN 03/14/19 03/14/19 History insulin glargine [Lantus U-100 25 unit SUBCUT HS 03/14/19 03/14/19 History Insulin] ipratropium bromide 0.5 mg INHALATION Q6HRT PRN 03/14/19 03/14/19 History lanolin [id number]-[id number]-p.pet-ceres 1 applic TOPICAL DAILY 03/14/19 03/14/19 History [Minerin Creme] magnesium oxide 400 mg PO DAILY 03/14/19 03/14/19 History multivitamin with minerals 1 tablet PO DAILY 03/14/19 03/14/19 History Laboratory Tests 03/16/19 03/16/19 03/16/19 11:43 17:33 21:05 WBC RBC Hgb Hct MCV MCH MCHC RDW Plt Count MPV Sodium Potassium Chloride Carbon Dioxide BUN Creatinine Estim Creat Clear Calc Estimated GFR Glucose POC Capillary Glucose 199 mg/dl H mg/dl 257 mg/dl H mg/dl 139 mg/dl H mg/dl (65-105) (65-105) (65-105) Calcium Phosphorus Magnesium Albumin 03/17/19 03/17/19 03/17/19 04:36 04:36 04:36 WBC 7.0 K/mm3 K/mm3 (4.5-10.0) RBC 4.62 M/mm3 M/mm3 (4.2-5.4) Hgb 8.4 g/dL L g/dL (12.0-15.0) Hct 29.8 % L % (37.0-47.0) MCV 64.5 fl L fl (80-100) MCH 18.2 pg L pg (26-34) MCHC 28.2 g/dl L g/dl (32-36) RDW 23.9 % H %
[2019-03-17 13:25] LABS: Glucose Point of Care 106 (65-105)
[2019-03-17 15:39] LABS: Glucose Point of Care 97 (65-105)
--- NOTE | 2019-03-17 15:45 | PCPTNOTE ---
Therapist attempted to see patient for treatment session in PM, but pt was off unit in GI lab per RN. PT or ANESTHESIOLOGIST PHYSICIAN will attempt to see patient at a later time.
[2019-03-17 16:42] LABS: Blood Urea Nitrogen 38 mg/dL (7-17); Calcium 8.3 mg/dL (8.4-10.2); Carbon Dioxide 35 mmol/L (22-30); Chloride 96 mmol/L (98-107); Estimated CRCL calculation 36 ml/min; Estimated Glomerular Filt Rate 43; Glucose 99 mg/dL (65-105); Magnesium 2.2 mg/dL (1.6-2.3); Potassium 2.9 mmol/L (3.4-5.0); Sodium 140 mmol/L (137-145)
[2019-03-17 16:56] LABS: Glucose Point of Care 134 (65-105)
[2019-03-17 17:12] LABS: Carcinoembryonic Antigen 3.6 ng/mL (0.0-3.0)
[2019-03-17] MEDS: TOLNAFTATE 1% POWDER 45 GM BTL 1 APPLIC TOPICAL ×2 (17:18→20:48)
[2019-03-17] MEDS: DOCUSATE SODIUM 100 MG CAPSULE PO ×2 (17:33→20:42)
[2019-03-17] MEDS: EUCERIN CREAM 120 GM JAR 1 APPLIC TOPICAL (17:35)
[2019-03-17] MEDS: THERAPEUTIC MULTIVITAMINS/MINERALS TAB (*BKC) 1 TABLET PO (17:35)
[2019-03-17] MEDS: PANTOPRAZOLE 40 MG TABLET PO (17:35)
[2019-03-17] MEDS: MAGNESIUM OXIDE 400 MG TABLET PO (17:35)
[2019-03-17] MEDS: LORATADINE 10 MG TABLET PO (17:35)
[2019-03-17] MEDS: FUROSEMIDE INJ 40 MG/4 ML VIAL IV PUSH (17:41)
[2019-03-17 19:15] LABS: Glucose Point of Care 89 (65-105)
--- NOTE | 2019-03-17 20:01 | PC.NURSE ---
Multiple calls to pharmacy due to late medications not in drawer. report given to Reema ORTIZ that meds were not given due to waiting on pharmacy.
[2019-03-17] MEDS: FERROUS SULFATE 324 MG TABLET PO (20:42)
[2019-03-17] MEDS: METOPROLOL TARTRATE 50 MG TAB PO (20:47)
[2019-03-17] MEDS: POTASSIUM CHLORIDE 10 MEQ TABLET.ER 40 MEQ PO ×2 (20:50→23:30)
[2019-03-17] MEDS: ACETAMINOPHEN 325 MG TABLET 650 MG PO (21:29)
[2019-03-17 21:44] LABS: Glucose Point of Care 255 (65-105)
[2019-03-17] MEDS: INSULIN GLARGINE (*BKC) 100 UNITS/ML 25 UNITS SUB-Q (22:16)
[2019-03-17] MEDS: GUAIFENESIN 200 MG/10 ML UDC PO (22:18)
[2019-03-17 22:22] LABS: Creatinine Urine 14.7 mg/dL; Total Protein Urine Random 11 mg/dL
[2019-03-17 22:40] LABS: Sodium Urine Random 93 meq/L
[2019-03-17 23:14] LABS: Potassium 3.1 mmol/L (3.4-5.0)
[2019-03-18] VITALS (13 sets, daily range): BP systolic 99–128; BP diastolic 45–74; PULSE 85–117; RESP 16–22; TEMP 36.3–36.7; O2SAT 92–97
[2019-03-18] MEDS: ACETAMINOPHEN 325 MG TABLET 650 MG PO ×2 (04:40→21:07)
[2019-03-18 05:15] LABS: Hematocrit 27.9 % (37.0-47.0); Hemoglobin 7.9 g/dL (12.0-15.0); Mean Corpuscular HGB Conc 28.3 g/dl (32-36); Mean Corpuscular Hemoglobin 18.3 pg (26-34); Mean Corpuscular Volume 64.6 fl (80-100); Mean Platelet Volume 9.5 fl (7.4-10.4); Platelet Count Result 295 k/mm3 (150-375); Red Blood Count 4.32 M/mm3 (4.2-5.4); Red Cell Distribution Width 23.9 % (11.5-14.5); White Blood Count 6.8 K/mm3 (4.5-10.0)
[2019-03-18 05:29] LABS: Blood Urea Nitrogen 35 mg/dL (7-17); Calcium 8.2 mg/dL (8.4-10.2); Carbon Dioxide 33 mmol/L (22-30); Chloride 97 mmol/L (98-107); Estimated CRCL calculation 36 ml/min; Estimated Glomerular Filt Rate 43; Glucose 177 mg/dL (65-105); Magnesium 1.9 mg/dL (1.6-2.3); Potassium 3.2 mmol/L (3.4-5.0); Sodium 139 mmol/L (137-145)
[2019-03-18 07:47] LABS: Glucose Point of Care 115 (65-105)
--- NOTE | 2019-03-18 09:40 | WPDGIPROGNO ---
Progress Note: A&P Additional Plan Patient alert and comfortable this morning. She denies abdominal pain. Tolerating diet. Physical exam reveals her to be alert. She is anicteric. Lungs reveal a few rhonchi. Heart without murmur. Abdomen is obese. Soft nontender. Extremities with marked peripheral edema. Labs reveal hemoglobin 7.9, hematocrit 27.9, MCV 64.6. Impression 1. Iron deficiency anemia. 2. Congestive heart failure. 3. Right colon mass. Suspicious for malignancy. Most likely etiology for her iron deficiency and anemia. Histology pending. If malignancy confirmed surgical resection after control of congestive heart failure may need to be considered. Subjective Date/time seen: 03/18/19 09:40 Objective Data Vital Signs Vital Signs: Vital Signs - 24 hr 03/17/19 10:00 03/17/19 12:00 03/17/19 12:59 Temperature 36.2 C L 36.3 C L Pulse Rate 73 73 88 Respiratory Rate 24 H 20 Blood Pressure 111/60 113/66 Pulse Oximetry 100 98 03/17/19 15:20 03/17/19 15:24 03/17/19 15:34 Temperature Pulse Rate 92 85 86 Respiratory Rate 14 16 18 Blood Pressure 98/41 L 106/44 L 106/59 L Pulse Oximetry 100 98 98 03/17/19 15:43 03/17/19 16:00 03/17/19 18:00 Temperature 36.4 C Pulse Rate 86 98 100 Respiratory Rate 18 22 H Blood Pressure 131/56 L 120/70 Pulse Oximetry 98 98 03/17/19 20:00 03/17/19 20:47 03/17/19 22:00 Temperature 36.5 C Pulse Rate 104 H 98 99 Respiratory Rate 18 Blood Pressure 124/59 L Pulse Oximetry 98 03/17/19 23:54 03/18/19 00:00 03/18/19 02:00 Temperature 36.4 C Pulse Rate 60 93 88 Respiratory Rate 20 Blood Pressure 103/45 L Pulse Oximetry 96 03/18/19 04:00 03/18/19 06:00 03/18/19 08:00 Temperature 36.4 C L 36.5 C Pulse Rate 85 91 102 H Respiratory Rate 20 16 Blood Pressure 102/57 L 103/45 L Pulse Oximetry 97 97 Intake/Output Intake/Output: Intake & Output 03/15/19 03/16/19 03/17/19 02/08/20 23:59 23:59 23:59 23:59 Intake Total 1410 1840 4350 736 Output Total 500 1100 1650 650 Balance 712 792 6515 86 Meds/Results Medications: Active Medications Generic Name Dose Route Start Last Admin Trade Name Freq PRN Reason Stop Dose Admin Acetaminophen 650 mg 03/14/19 18:01 03/18/19 04:40 Tylenol Tablet PO 650 mg Q4H PRN Administration Headache Albuterol 5 mg 03/14/19 18:01 Albuterol Sulf Neb 2.5mg/0.5ml INHALATION Q6HRT PRN Shortness Of Breath Dextrose 12.5 gm 03/15/19 00:38 Dextrose 50% Syringe IV PUSH PRN PRN Hypoglycemia Protocol Diltiazem HCl 120 mg 03/15/19 09:00 03/17/19 17:34 Cardizem Cd PO 120 mg QAM LIO Administration Docusate Sodium 100 mg 03/14/19 21:00 03/17/19 20:42 Colace Capsule PO 100 mg Q12HR LIO Administration Ferrous Sulfate 324 mg 03/17/19 17:00 03/17/19 20:42 Ferrous Sulfate PO 324 mg BIDWM LIO Administration Furosemide 40 mg 03/17/19 17:00 03/17/19 17:41 Lasix Inj IV PUSH 40 mg BID LIO Administration Glucagon 1 mg 03/15/19 00:38 Glucagon For Inj IM PRN PRN Hypoglycemia Protocol Glucose 15 gm 03/15/19 00:38 Glutose 15 PO PRN PRN Hypoglycemia Protocol Guaifenesin 200 mg 03/14/19 18:01 03/17/19 22:18 Guaifenesin Liq PO 200 mg Q4H PRN Administration Cough Dextrose 1,000 mls @ 100 mls/hr 03/15/19 00:38 Dextrose 5% 1,000 Ml IVPB PRN PRN Hypoglycemia Protocol Insulin Aspart 3 - 6 units 03/15/19 08:00 03/17/19 17:18 Novolog SUB-Q Not Given TIDWM LIO Protocol Insulin Glargine 25 units 03/14/19 21:00 03/17/19 20:50 Lantus SUB-Q Not Given HS LIO Ipratropium [place] 0.5 mg 03/14/19 18:01 Atrovent Neb INHALATION Q6HRT PRN Shortness Of Breath Lidocaine HCl 0.3 ml 03/17/19 08:08 Xylocaine 2% Local Inj INTRADERM ONCE PRN to numb area Loratadine 10 mg 03/15/19 09:00 03/17/19
[2019-03-18] MEDS: EUCERIN CREAM 120 GM JAR 1 APPLIC TOPICAL (10:22)
[2019-03-18] MEDS: POTASSIUM CHLORIDE 10 MEQ TABLET.ER 40 MEQ PO ×4 (10:24→21:08)
[2019-03-18] MEDS: THERAPEUTIC MULTIVITAMINS/MINERALS TAB (*BKC) 1 TABLET PO (10:29)
[2019-03-18] MEDS: PANTOPRAZOLE 40 MG TABLET PO (10:30)
[2019-03-18] MEDS: FUROSEMIDE INJ 40 MG/4 ML VIAL IV PUSH ×2 (10:31→16:06)
[2019-03-18] MEDS: LORATADINE 10 MG TABLET PO (10:31)
[2019-03-18] MEDS: MAGNESIUM OXIDE 400 MG TABLET PO (10:31)
[2019-03-18] MEDS: METOPROLOL TARTRATE 50 MG TAB PO ×2 (10:32→21:09)
[2019-03-18] MEDS: TOLNAFTATE 1% POWDER 45 GM BTL 1 APPLIC TOPICAL ×2 (10:33→21:11)
[2019-03-18] MEDS: MAGNESIUM SULF 1 GM/D5W 100 ML 1 GM/100 ML BAG IVPB (10:34)
--- NOTE | 2019-03-18 11:08 | PM.PNCARD ---
Progress Note: A&P Assessment and Plan (1) Hypokalemia: Code(s): E87.6 - Hypokalemia Status: Acute Assessment and Plan: Monitor BMP and potassium. Continue to replete to keep around 4. (2) Chronic kidney disease, stage IV (severe): Code(s): N18.4 - Chronic kidney disease, stage 4 (severe) Status: Acute Assessment and Plan: renal function is stable. Continue to monitor. Tolerating diuresis. (3) Severe obstructive sleep apnea: Code(s): G47.33 - Obstructive sleep apnea (adult) (pediatric) Status: Chronic (4) Chronic atrial fibrillation: Code(s): I48.20 - Chronic atrial fibrillation, unspecified Status: Acute Assessment and Plan: Heart rate is reasonably controlled. Tolerating metoprolol at 50 mg p.o. b.i.d. and diltiazem. Resume anticoagulation as appropriate and if okay with GI. DVT prophylaxis in the interval. (5) Congestive heart failure: Qualifiers: Heart failure type: diastolic Heart failure chronicity: chronic Qualified Code(s): I50.32 - Chronic diastolic (congestive) heart failure Code(s): I50.9 - Heart failure, unspecified Status: Acute Assessment and Plan: continue IV furosemide 40 mg IV qq12 hours. (6) Chronic anticoagulation: Code(s): Z79.01 - halfway (current) use of anticoagulants Status: Acute Assessment and Plan: As above. Subjective Date/time seen: 03/18/19 11:08 Interval history: Follow up for worsening edema, shortness of breath, fatigue and tiredness and anemia Date of service: 03/18/2019 She is feeling stronger. Daughter states she was able to get up from the erica potty on her own and transfer from the bed independently which is a huge improvement. She notes her breathing is much better, denies chest pain or dizziness. Swelling improving but still quite significant. She feels much better today. No new issues overnight. Review of Systems Review of Systems: All systems reviewed & are unremarkable except as noted in HPI and below Constitutional: Constitutional: Reports as per HPI, Reports fatigue, Denies headache(s) and Reports weakness Eyes: Eyes: Reports as per HPI and Denies blurry vision ENT: Reports as per HPI, Denies headache(s), Denies lip swelling and Denies neck pain Cardiovascular: Cardiovascular: Reports as per HPI, Denies chest pain, Reports leg edema and Reports dyspnea Respiratory: Respiratory: Reports as per HPI, Denies hemoptysis, Reports dyspnea and Denies wheezing Gastrointestinal: Gastrointestinal: Reports as per HPI, Reports abdominal pain and Denies hematemesis Genitourinary: Genitourinary: Reports as per HPI and Denies hematuria Musculoskeletal: Musculoskeletal: Denies neck pain Integumentary/Breasts: Skin/Breast: Reports as per HPI and Reports wounds Neurologic: Reports as per HPI, Denies confusion, Denies headache(s) and Reports weakness Psychiatric: Psychiatric: Reports as per HPI, Denies anxiety and Denies confusion Endocrine: Endocrine: Denies flushing Hematologic/Lymphatic: Hematologic/Lymphatic: Denies easy bleeding Allergic/Immunologic: Allergic/Immunologic: Denies lip swelling Exam Narrative: Exam Narrative: Alert and oriented x3. Hard of hearing. Const: General: no acute distress; No confusion Orientation/consciousness: No confusion HENMT: General nose exam: Normal nares present Eyes: Sclera: sclerae normal Neck: Neck: supple and no JVD Resp: Auscultation: rales and diminished lung sounds Cardio: Rate: regular rate Rhythm: abnormal rhythm irregularly irregular GI: Inspection: non-distended Skin: Other: Weeping noted to bilateral lower extremities 2 to 3+ bilaterally equal lower extremity edema, lower extremities wrapped. Neuro: General: No confusion Cognition (Neuro): normal cognition Extrem: General: edema and pedal edema Psych: Affect: normal affect and Sad affect present Objective Da
--- NOTE | 2019-03-18 11:19 | PM.PNNEP ---
Progress Note: A&P Assessment and Plan (1) Chronic kidney disease, stage IV (severe): Code(s): N18.4 - Chronic kidney disease, stage 4 (severe) Status: Acute Assessment and Plan: baseline creatinine usually ~ 1.6 - 2.0mg/dl due to diabetes, hypertension, and chronic pre renal azotemia creatinine better than baseline -- probably due to bed bound status and some muscle loss with acute illness (2) Generalized edema: Code(s): R60.1 - Generalized edema Status: Acute Assessment and Plan: multifactorial: - right sided heart failure - obstructive sleep apnea - atrial fibrillation on diuretics may need to titrate dosage of diuretics... (3) Atrial fibrillation with slow ventricular response: Code(s): I48.91 - Unspecified atrial fibrillation Status: Acute Assessment and Plan: Cardiology is seeing/managing (4) Hypokalemia: Code(s): E87.6 - Hypokalemia Status: Chronic Assessment and Plan: chronic issues at baseline consider trial of spironolactone(?) Will continue to follow. Subjective Date/time seen: 03/18/19 11:19 Overall, feels significantly better today; daughter at bedside and related that patient looks better as well. Some ambulation with assistance today; appetite has improved; edema is stable and respiratory status about the same. Exam Narrative: Exam Narrative: General: WD/WN female in NAD Heart: normal S1 and S2; no rub Lungs: decreased at bases Abdomen: soft, nontender, nondistended, positive bowel sounds Extremities: no cyanosis or clubbing; 1+ edema Skin: warm and dry Objective Data Vital Signs Vital Signs: Vital Signs Temp Pulse Resp BP Pulse Ox 03/18/19 10:32 110 H 03/18/19 08:00 36.5 C 102 H 16 103/45 L 97 03/18/19 06:00 91 03/18/19 04:00 36.4 C L 85 20 102/57 L 97 03/18/19 02:00 88 03/18/19 00:00 93 03/17/19 23:54 36.4 C 60 20 103/45 L 96 03/17/19 22:00 99 03/17/19 20:47 98 03/17/19 20:00 36.5 C 104 H 18 124/59 L 98 03/17/19 18:00 100 03/17/19 16:00 36.4 C 98 22 H 120/70 98 03/17/19 15:43 86 18 131/56 L 98 03/17/19 15:34 86 18 106/59 L 98 03/17/19 15:24 85 16 106/44 L 98 03/17/19 15:20 92 14 98/41 L 100 03/17/19 12:59 36.3 C L 88 20 113/66 98 03/17/19 12:00 36.2 C L 73 24 H 111/60 100 Intake/Output Intake/Output: Intake & Output 03/15/19 03/16/19 03/17/19 03/18/19 23:59 23:59 23:59 23:59 Intake Total 1410 1840 4350 736 Output Total 500 1100 1650 900 Balance 086 002 8701 -164 Meds/Results Medications: Active Medications Generic Name Dose Route Start Last Admin Trade Name Freq PRN Reason Stop Dose Admin Acetaminophen 650 mg 03/14/19 18:01 03/18/19 04:40 Tylenol Tablet PO 650 mg Q4H PRN Administration Headache Albuterol 5 mg 03/14/19 18:01 Albuterol Sulf Neb 2.5mg/0.5ml INHALATION Q6HRT PRN Shortness Of Breath Dextrose 12.5 gm 03/15/19 00:38 Dextrose 50% Syringe IV PUSH PRN PRN Hypoglycemia Protocol Diltiazem HCl 120 mg 03/15/19 09:00 03/18/19 10:23 Cardizem Cd PO 120 mg QAM LIO Administration Docusate Sodium 100 mg 03/14/19 21:00 03/18/19 10:35 Colace Capsule PO Not Given Q12HR LIO Ferrous Sulfate 324 mg 03/17/19 17:00 03/17/19 20:42 Ferrous Sulfate PO 324 mg BIDWM LIO Administration Furosemide 40 mg 03/17/19 17:00 03/18/19 10:31 Lasix Inj IV PUSH 40 mg BID LIO Administration Glucagon 1 mg 03/15/19 00:38 Glucagon For Inj IM PRN PRN Hypoglycemia Protocol Glucose 15 gm 03/15/19 00:38 Glutose 15 PO PRN PRN Hypoglycemia Protocol Guaifenesin 200 mg 03/14/19 18:01 03/17/19 22:18 Guaifenesin Liq PO 200 mg Q4H PRN Administration Cough Dextrose 1,000 mls @ 100 mls/hr 03/15/19 00:38 Dextrose 5% 1,0
[2019-03-18 11:59] LABS: Glucose Point of Care 193 (65-105)
--- NOTE | 2019-03-18 12:04 | PCOTNOTE ---
Attempted to see Pt during A.M., however pt was eating lunch at this time and declined to participate in therapy at this time. Will attempt to see pt in the P.M. Pt's daughter was present at this time.
--- NOTE | 2019-03-18 12:41 | WPDANESPN ---
Anes - Prog Note Post-Op Date/Time: 03/18/19 12:41 Cardiovascular status: normal Respiratory status: normal Airway patency: baseline Mental status: baseline Post-Op hydration status: normal Vital Signs: Last Vital Signs Temp 97.7 F 03/18/19 08:00 Pulse 110 H 03/18/19 10:32 Resp 16 03/18/19 08:00 BP 103/45 L 03/18/19 08:00 Pulse Ox 97 03/18/19 08:00 I/O: Intake & Output 03/17/19 03/18/19 03/18/19 23:59 07:59 15:59 Intake Total 300 500 236 Output Total 1650 650 250 Balance -1350 -150 -14 Laboratory Tests 03/18/19 04:49 03/18/19 04:49 03/17/19 03/17/19 03/17/19 11:50 13:23 15:37 WBC RBC Hgb Hct MCV MCH MCHC RDW Plt Count MPV Sodium Potassium Chloride Carbon Dioxide BUN Creatinine Estim Creat Clear Calc Estimated GFR Glucose POC Capillary Glucose 134 H 106 97 Calcium Magnesium Carcinoembryonic Ag U Random Total Protein Ur Random Sodium Urine Creatinine 03/17/19 03/17/19 03/17/19 16:15 16:15 16:26 WBC RBC Hgb Hct MCV MCH MCHC RDW Plt Count MPV Sodium 140 Potassium 2.9 L Chloride 96 L Carbon Dioxide 35 H BUN 38 H Creatinine 1.20 H Estim Creat Clear Calc 36 Estimated GFR 43 L Glucose 99 POC Capillary Glucose 89 Calcium 8.3 L Magnesium 2.2 Carcinoembryonic Ag 3.6 H U Random Total Protein Ur Random Sodium Urine Creatinine 03/17/19 03/17/19 03/17/19 21:30 21:42 22:51 WBC RBC Hgb Hct MCV MCH MCHC RDW Plt Count MPV Sodium Potassium 3.1 L Chloride Carbon Dioxide BUN Creatinine Estim Creat Clear Calc Estimated GFR Glucose POC Capillary Glucose 255 H Calcium Magnesium Carcinoembryonic Ag U Random Total Protein 11 Ur Random Sodium 93 Urine Creatinine 14.7 03/18/19 03/18/19 03/18/19 04:49 04:49 07:29 WBC 6.8 RBC 4.32 Hgb 7.9 L Hct 27.9 L MCV 64.6 L MCH 18.3 L MCHC 28.3 L RDW 23.9 H Plt Count 295 MPV 9.5 Sodium 139 Potassium 3.2 L Chloride 97 L Carbon Dioxide 33 H BUN 35 H Creatinine 1.20 H Estim Creat Clear Calc 36 Estimated GFR 43 L Glucose 177 H POC Capillary Glucose 115 H Calcium 8.2 L Magnesium 1.9 Carcinoembryonic Ag U Random Total Protein Ur Random Sodium Urine Creatinine 03/18/19 11:39 WBC RBC Hgb Hct MCV MCH MCHC RDW Plt Count MPV Sodium Potassium Chloride Carbon Dioxide BUN Creatinine Estim Creat Clear Calc Estimated GFR Glucose POC Capillary Glucose 193 H Calcium Magnesium Carcinoembryonic Ag U Random Total Protein Ur Random Sodium Urine Creatinine Post-procedural complaints: none Patient Feedback: Patient satisfied with anesthetic care.
--- NOTE | 2019-03-18 13:51 | PM.IMPN ---
Progress Note: A&P Assessment and Plan (1) Anemia: Qualifiers: Anemia type: unspecified type Qualified Code(s): D64.9 - Anemia, unspecified Code(s): D64.9 - Anemia, unspecified Status: Acute Assessment and Plan: heme + stool iron panel c/w iron deficiency 03/15 antibody delaying transfusion 03/16 hgb 8.1; endoscopic evaluation 03/17 03/17 hgb 8.4; endoscopy with colon mass, path pending 03/18 hgb 7.9 (2) Congestive heart failure: Qualifiers: Heart failure type: diastolic Heart failure chronicity: chronic Qualified Code(s): I50.32 - Chronic diastolic (congestive) heart failure Code(s): I50.9 - Heart failure, unspecified Status: Acute Assessment and Plan: Continue with metoprolol, and Lasix iv; zaroxolyn on hold (3) Atrial fibrillation: Qualifiers: Atrial fibrillation type: permanent Qualified Code(s): I48.21 - Permanent atrial fibrillation Code(s): I48.91 - Unspecified atrial fibrillation Status: Acute Assessment and Plan: Eliquis and ASA on hold. Continue with metoprolol. (4) Type 2 diabetes mellitus with hyperglycemia, with long-term current use of insulin: Code(s): E11.65 - Type 2 diabetes mellitus with hyperglycemia; Z79.4 - nursing home (current) use of insulin Status: Acute Assessment and Plan: Continue with basal and sliding scale insulin 03/17 FBS 99 after basal insulin held 03/18 FBS 115 (5) Hypokalemia: Code(s): E87.6 - Hypokalemia Status: Acute Assessment and Plan: Replace mag and K iv and po 2 AM furosemide and metolazone held 03/18 3.2, increased to 40mEq PO QID, IV mag x 1gm f/u lab Subjective Date/time seen: 03/18/19 13:51 Interval history: Feels much better today. Walked to door with walker. Ate all of her breakfast and lunch. Denied pain. Shortness of breath with exertion. Edema about the same. No GI or complaints. No further bleeding noted. Review of Systems Review of Systems: All systems reviewed & are unremarkable except as noted in HPI and below Exam Narrative: Exam Narrative: HEENT: EOMI, PERRL, pharyngeal mucosa pink and intact NECK: No JVD CHEST: Decr BS at bases HEART: NL S1/S2, regular, no murmur ABDOMEN: BS+, soft, nontender, no mass, no bruits EXTREMITIES: No cyanosis, 1+ pretibial edema NEUROLOGIC: CN intact and symmetric to inspection. MUSCULOSKELETAL: Tone and strength symmetric. PSYCH: Alert. Oriented to person, place, and time. Objective Data Vital Signs Vital Signs: Vital Signs - 24 hr 03/17/19 15:20 03/17/19 15:24 03/17/19 15:34 Temperature Pulse Rate 92 85 86 Respiratory Rate 14 16 18 Blood Pressure 98/41 L 106/44 L 106/59 L Pulse Oximetry 100 98 98 03/17/19 15:43 03/17/19 16:00 03/17/19 18:00 Temperature 97.6 F Pulse Rate 86 98 100 Respiratory Rate 18 22 H Blood Pressure 131/56 L 120/70 Pulse Oximetry 98 98 03/17/19 20:00 03/17/19 20:47 03/17/19 22:00 Temperature 97.7 F Pulse Rate 104 H 98 99 Respiratory Rate 18 Blood Pressure 124/59 L Pulse Oximetry 98 03/17/19 23:54 03/18/19 00:00 03/18/19 02:00 Temperature 97.6 F Pulse Rate 60 93 88 Respiratory Rate 20 Blood Pressure 103/45 L Pulse Oximetry 96 03/18/19 04:00 03/18/19 06:00 03/18/19 08:00 Temperature 97.5 F L 97.7 F Pulse Rate 85 91 105 H Respiratory Rate 20 16 Blood Pressure 102/57 L 103/45 L Pulse Oximetry 97 97 03/18/19 10:00 03/18/19 10:32 Temperature Pulse Rate 104 H 110 H Respiratory Rate Blood Pressure Pulse Oximetry Intake/Output Intake/Output: Intake & Output 03/15/19 03/16/19 03/17/19 03/18/19 23:59 23:59 23:59 23:59 Intake Total 1410 1840 4350 736 Output Total 500 1100 1650 900 Balance 474 855 1494 -164 Meds/Results Medications: Active Medications Generic Name Dose Route Start Last Admin Trade Name Freq PRN Reason Stop Dose Admin Acetaminophen 650 mg
[2019-03-18] MEDS: GUAIFENESIN 200 MG/10 ML UDC PO ×2 (16:03→21:08)
[2019-03-18] MEDS: FERROUS SULFATE 324 MG TABLET PO ×2 (16:08→18:37)
[2019-03-18 17:23] LABS: Glucose Point of Care 262 (65-105)
[2019-03-18] MEDS: INSULIN ASPART (*BKC) 100 UNITS/ML SUB-Q (18:37)
[2019-03-18 20:11] LABS: Glucose Point of Care 285 (65-105)
--- NOTE | 2019-03-18 20:29 | PC.NURSE ---
This patient, Radha Salmeron, was transferred to [facility] on 03/18/19 at 202. Personal belongings sent with patient. Belongings list checked. Report given to Lynda ORTIZ. Appropriate documentation sent with patient.
[2019-03-18] MEDS: DOCUSATE SODIUM 100 MG CAPSULE PO (21:08)
[2019-03-18] MEDS: INSULIN GLARGINE (*BKC) 100 UNITS/ML 25 UNITS SUB-Q (21:13)
--- NOTE | 2019-03-19 00:14 | PC.NURSE ---
Patient transferred to this unit at 2030, from IMU, patient traveled via w/c, vital are stable, assessment done and charted. Daughter in room with patient at this time.
[2019-03-19] MEDS: ACETAMINOPHEN 325 MG TABLET 650 MG PO ×2 (02:30→21:41)
[2019-03-19] MEDS: GUAIFENESIN 200 MG/10 ML UDC PO ×3 (04:12→21:40)
[2019-03-19 06:00] VITALS: BP 109/55; PULSE 69; RESP 20; TEMP 36.8; O2SAT 98
[2019-03-19 06:35] LABS: Hematocrit 28.6 % (37.0-47.0); Mean Corpuscular Hemoglobin 18.1 pg (26-34); Mean Corpuscular Volume 64.9 fl (80-100); Mean Platelet Volume 9.8 fl (7.4-10.4); Platelet Count Result 303 k/mm3 (150-375); Red Blood Count 4.41 M/mm3 (4.2-5.4); Red Cell Distribution Width 25.1 % (11.5-14.5); White Blood Count 8.9 K/mm3 (4.5-10.0)
[2019-03-19 06:43] LABS: Blood Urea Nitrogen 37 mg/dL (7-17); Calcium 8.6 mg/dL (8.4-10.2); Carbon Dioxide 30 mmol/L (22-30); Chloride 97 mmol/L (98-107); Estimated CRCL calculation 34 ml/min; Estimated Glomerular Filt Rate 39; Glucose 225 mg/dL (65-105); Magnesium 1.9 mg/dL (1.6-2.3); Potassium 3.9 mmol/L (3.4-5.0); Sodium 139 mmol/L (137-145)
[2019-03-19 07:53] LABS: Carcinoembryonic Antigen 3.6 ng/mL (0.0-3.0)
[2019-03-19 08:00] VITALS: PULSE 69; RESP 20; O2SAT 98
--- NOTE | 2019-03-19 08:09 | PN_ITS ---
Gastroenterology Progress Note This report was moved to the correct visit, [id number], on March 21, 2019. Original report was signed by Dr. Perales on March 19, 2019 at 0811. Progress Note: A&P Additional Plan Patient alert and comfortable this morning. Sleeping in a chair. She is now tolerating diet. Denies abdominal pain. No obvious active GI blood loss. Physical exam reveals her to be alert. Lungs with few rales. Heart without murmur. Abdomen is obese bowel sounds are present soft and nontender. Extremities with marked pedal edema. Impression 1. Ascending colon mass. Histology pending. Strongly suspect this is etiology for her iron deficiency anemia. If tumor is confirms surgical console and perhaps Oncology consult may be a consideration. 2. Iron deficiency anemia. Now on iron replacement. Continue to monitor hemoglobin. Low hemoglobin was likely contributed to congestive heart failure. 3. Congestive heart failure. Improving with slow diuresis. Also improved after transfusion and higher hematocrit. Subjective Date/time seen: 03/19/19 08:09 Objective Data Vital Signs Vital Signs: Vital Signs - 24 hr 03/18/19 10:00 03/18/19 12:00 03/18/19 14:00 Temperature 36.2 C L 36.7 C 36.7 C Pulse Rate 87 85 85 Respiratory Rate 16 18 18 Blood Pressure 134/72 147/64 H 147/64 H Pulse Oximetry 98 99 99 03/18/19 18:00 03/18/19 22:59 03/19/19 00:00 Temperature 37.0 C 36.8 C 36.7 C Pulse Rate 87 88 85 Respiratory Rate 16 18 18 Blood Pressure 141/60 H 122/52 L 130/50 L Pulse Oximetry 96 97 100 03/19/19 05:45 Temperature 37.2 C Pulse Rate 79 Respiratory Rate 16 Blood Pressure 111/44 L Pulse Oximetry 98 Intake/Output Intake/Output: Intake & Output 03/16/19 03/17/19 03/18/19 03/19/19 23:59 23:59 23:59 23:59 Intake Total 4069 2564 2765 150 Output Total 1875 2825 2050 300 Balance 42 -261 715 -150 Meds/Results Medications: Active Medications Generic Name Dose Route Start Last Admin Trade Name Freq PRN Reason Stop Dose Admin Diphenhydramine HCl 25 mg 03/15/19 16:43 03/19/19 07:28 Benadryl Cap PO 25 mg Q6H PRN Administration Itching Furosemide 40 mg 03/17/19 09:00 03/19/19 08:03 Lasix Inj IV PUSH 40 mg QAM LIO Administration Vancomycin HCl 1,250 mg in 250 mls @ 200 mls/hr 03/17/19 11:00 03/17/19 16:17 Vancomycin 1,250 Mg/D5w 250 Ml IVPB Infused Q48H LIO Infusion Lidocaine HCl 0.3 ml 03/17/19 08:10 Xylocaine 2% Local Inj INTRADERM ONCE PRN to numb area Lorazepam 1 mg 03/15/19 13:47 Ativan Inj IV PUSH Q4H PRN CIWA score 8 or above Pantoprazole Sodium 40 mg 03/17/19 21:00 03/19/19 08:03 Protonix Iv IV PUSH 40 mg Q12HR LIO Administration Sucralfate 1 gm 03/17/19 16:30 03/19/19 07:07 Carafate PO 1 gm ACHS LIO Administration Tamsulosin HCl 0.4 mg 03/15/19 21:00 03/18/19 20:41 Flomax PO 0.4 mg HS LIO Administration Thiamine HCl 50 mg 03/16/19 09:00 03/19/19 08:03 Vitamin B-1 PO 50 mg QAM LIO Administration Radiology Results: ITS Impressions Chest X-Ray 03/14/19 19:02 IMPRESSION: 1. Small bilateral pleural effusions with bibasilar atelectasis and/or pneumonia. Abdomen/Pelvis CT 03/14/19 21:14 IMPRESSION: 1. Diffuse wall thickening in the bladder with trabeculation suggesting thi
[2019-03-19] MEDS: FERROUS SULFATE 324 MG TABLET PO ×2 (08:30→16:25)
[2019-03-19] MEDS: DOCUSATE SODIUM 100 MG CAPSULE PO ×2 (08:31→20:31)
[2019-03-19] MEDS: METOPROLOL TARTRATE 50 MG TAB PO ×2 (08:32→20:31)
[2019-03-19] MEDS: LORATADINE 10 MG TABLET PO (08:32)
[2019-03-19] MEDS: MAGNESIUM OXIDE 400 MG TABLET PO (08:32)
[2019-03-19] MEDS: FUROSEMIDE INJ 40 MG/4 ML VIAL IV PUSH ×2 (08:32→16:24)
[2019-03-19] MEDS: TOLNAFTATE 1% POWDER 45 GM BTL 1 APPLIC TOPICAL ×2 (08:35→20:40)
[2019-03-19] MEDS: SILVERGEL (ELTA) 45 ML 1 APPLIC TOPICAL (08:35)
[2019-03-19] MEDS: POTASSIUM CHLORIDE 10 MEQ TABLET.ER 40 MEQ PO ×4 (08:36→20:32)
[2019-03-19] MEDS: THERAPEUTIC MULTIVITAMINS/MINERALS TAB (*BKC) 1 TABLET PO (08:37)
[2019-03-19] MEDS: EUCERIN CREAM 120 GM JAR 1 APPLIC TOPICAL (08:38)
[2019-03-19] MEDS: PANTOPRAZOLE 40 MG TABLET PO (08:39)
[2019-03-19] MEDS: INSULIN ASPART (*BKC) 100 UNITS/ML SUB-Q ×2 (08:52→16:27)
[2019-03-19 11:36] LABS: Glucose Point of Care 181 (65-105)
--- NOTE | 2019-03-19 14:15 | PM.PNNEP ---
Progress Note: A&P Assessment and Plan (1) Chronic kidney disease, stage IV (severe): Code(s): N18.4 - Chronic kidney disease, stage 4 (severe) Status: Acute Assessment and Plan: baseline creatinine usually ~ 1.6 - 2.0mg/dl due to diabetes, hypertension, and chronic pre renal azotemia creatinine better than baseline -- probably due to bed bound status and some muscle loss with acute illness (2) Generalized edema: Code(s): R60.1 - Generalized edema Status: Acute Assessment and Plan: multifactorial: - right sided heart failure - obstructive sleep apnea - atrial fibrillation on diuretics may need to titrate dosage of diuretics... (3) Atrial fibrillation with slow ventricular response: Code(s): I48.91 - Unspecified atrial fibrillation Status: Acute Assessment and Plan: Cardiology is seeing/managing (4) Hypokalemia: Code(s): E87.6 - Hypokalemia Status: Chronic Assessment and Plan: chronic issues at baseline consider trial of spironolactone(?) Will continue to follow. Subjective Date/time seen: 03/19/19 14:15 Continues to work with PT/OT as tolerated; swelling/edema appears stable; breathing remains at baseline if not somewhat better; no apparent distress voiced. Exam Narrative: Exam Narrative: General: WD/WN female in NAD Heart: normal S1 and S2; no rub Lungs: decreased at bases Abdomen: soft, nontender, nondistended, positive bowel sounds Extremities: no cyanosis or clubbing; 1+ edema Skin: warm and intact Objective Data Vital Signs Vital Signs: Vital Signs Temp Pulse Resp BP Pulse Ox 03/19/19 08:00 69 20 98 03/19/19 06:00 36.8 C 69 20 109/55 L 98 03/18/19 21:09 101 H 03/18/19 20:49 101 H 18 92 03/18/19 20:30 36.7 C 95 22 H 128/74 92 03/18/19 19:57 36.6 C 115 H 20 115/59 L 92 03/18/19 16:00 36.3 C L 115 H 20 110/56 L 92 Intake/Output Intake/Output: Intake & Output 03/16/19 03/17/19 03/18/19 03/19/19 23:59 23:59 23:59 23:59 Intake Total 1840 4350 976 560 Output Total 1100 1650 2300 800 Balance 743 0119 -2088 -819 Meds/Results Medications: Active Medications Generic Name Dose Route Start Last Admin Trade Name Freq PRN Reason Stop Dose Admin Acetaminophen 650 mg 03/14/19 18:01 03/19/19 02:30 Tylenol Tablet PO 650 mg Q4H PRN Administration Headache Albuterol 5 mg 03/14/19 18:01 Albuterol Sulf Neb 2.5mg/0.5ml INHALATION Q6HRT PRN Shortness Of Breath Dextrose 12.5 gm 03/15/19 00:38 Dextrose 50% Syringe IV PUSH PRN PRN Hypoglycemia Protocol Diltiazem HCl 120 mg 03/15/19 09:00 03/19/19 08:31 Cardizem Cd PO 120 mg QAM LIO Administration Docusate Sodium 100 mg 03/14/19 21:00 03/19/19 08:31 Colace Capsule PO 100 mg Q12HR LIO Administration Ferrous Sulfate 324 mg 03/17/19 17:00 03/19/19 08:30 Ferrous Sulfate PO 324 mg BIDWM LIO Administration Furosemide 40 mg 03/17/19 17:00 03/19/19 08:32 Lasix Inj IV PUSH 40 mg BID LIO Administration Glucagon 1 mg 03/15/19 00:38 Glucagon For Inj IM PRN PRN Hypoglycemia Protocol Glucose 15 gm 03/15/19 00:38 Glutose 15 PO PRN PRN Hypoglycemia Protocol Guaifenesin 200 mg 03/14/19 18:01 03/19/19 08:33 Guaifenesin Liq PO 200 mg Q4H PRN Administration Cough Dextrose 1,000 mls @ 100 mls/hr 03/15/19 00:38 Dextrose 5% 1,000 Ml IVPB PRN PRN Hypoglycemia Protocol Insulin Aspart 3 - 6 units 03/15/19 08:00 03/19/19 11:38 Novolog SUB-Q Not Given TIDWM [facility] Protocol Insulin Glargine 25 units 03/14/19 21:00 03/18/19 21:13 Lantus SUB-Q 25 units HS LIO Administration Ipratropium [place] 0.5 mg 03/14/19 18:01 Atrovent Neb INHALATION Q6HRT PRN Shortness Of Breath Lidocaine HCl 0.3 ml 03/17/19 08:
[2019-03-19 14:41] VITALS: BP 115/55; PULSE 94; RESP 16; TEMP 37.4; O2SAT 96
[2019-03-19 16:44] LABS: Glucose Point of Care 227 (65-105)
--- NOTE | 2019-03-19 17:47 | PM.IMPN ---
Progress Note: A&P Assessment and Plan (1) Anemia: Qualifiers: Anemia type: unspecified type Qualified Code(s): D64.9 - Anemia, unspecified Code(s): D64.9 - Anemia, unspecified Status: Acute Assessment and Plan: heme + stool iron panel c/w iron deficiency 03/15 antibody delaying transfusion 03/16 hgb 8.1; endoscopic evaluation 03/17 03/17 hgb 8.4; endoscopy with colon mass, path pending 03/18 hgb 7.9 03/19 hgb 8.0, path pending on bx (2) Congestive heart failure: Qualifiers: Heart failure type: diastolic Heart failure chronicity: chronic Qualified Code(s): I50.32 - Chronic diastolic (congestive) heart failure Code(s): I50.9 - Heart failure, unspecified Status: Acute Assessment and Plan: Continue with metoprolol, and Lasix iv; zaroxolyn on hold (3) Atrial fibrillation: Qualifiers: Atrial fibrillation type: permanent Qualified Code(s): I48.21 - Permanent atrial fibrillation Code(s): I48.91 - Unspecified atrial fibrillation Status: Acute Assessment and Plan: Eliquis and ASA on hold. Continue with metoprolol. 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 Tolerating diet and physical therapy. Some shortness of breath with exertion. No chest pain palpitations syncope or presyncope. Leg swelling improving. No abdominal pain or diarrhea. No abnormal bleeding. No dysuria. Review of Systems Review of Systems: All systems reviewed & are unremarkable except as noted in HPI and below Exam Narrative: Exam Narrative: HEENT: EOMI, PERRL, pharyngeal mucosa pink and intact NECK: No JVD CHEST: Decr BS at bases HEART: NL S1/S2, regular, no murmur ABDOMEN: BS+, soft, nontender, no mass, no bruits EXTREMITIES: No cyanosis, 1+ pretibial edema NEUROLOGIC: CN intact and symmetric to inspection. MUSCULOSKELETAL: Tone and strength symmetric. PSYCH: Alert. Oriented to person, place, and time. Objective Data Vital Signs Vital Signs: Vital Signs - 24 hr 03/18/19 19:57 03/18/19 20:30 03/18/19 20:49 Temperature 98 F 98.1 F Pulse Rate 115 H 95 101 H Respiratory Rate 20 22 H 18 Blood Pressure 115/59 L 128/74 Pulse Oximetry 92 92 92 03/18/19 21:09 03/19/19 06:00 03/19/19 08:00 Temperature 98.3 F Pulse Rate 101 H 69 69 Respiratory Rate 20 20 Blood Pressure 109/55 L Pulse Oximetry 98 98 03/19/19 14:41 Temperature 99.3 F Pulse Rate 94 Respiratory Rate 16 Blood Pressure 115/55 L Pulse Oximetry 96 Intake/Output Intake/Output: Intake & Output 03/16/19 03/17/19 03/18/19 03/19/19 23:59 23:59 23:59 23:59 Intake Total 1840 4350 976 1450 Output Total 1100 1650 2300 1300 Balance 740 2700 -1324 150 Meds/Results Medications: Active Medications Generic Name Dose Route Start Last Admin Trade Name Freq PRN Reason Stop Dose Admin Acetaminophen 650 mg 03/14/19 18:01 03/19/19 02:30 Tylenol Tablet PO 650 mg Q4H PRN Administration Headache Albuterol 5 mg 03/14/19 18:01 Albuterol Sulf Neb 2.5mg/0.5ml INHALATION Q6HRT PRN Shortness Of Breath Dextrose 12.5 gm 03/15/19 00:38 Dextrose 50% Syringe IV PUSH PRN PRN Hypoglycemia Protocol Diltiazem HCl 120 mg 03/15/19 09:00 03/19/19 08:31 Cardizem Cd PO 120 mg QAM LIO Administration Docusate Sod
[2019-03-19 20:31] VITALS: PULSE 70
[2019-03-19] MEDS: INSULIN GLARGINE (*BKC) 100 UNITS/ML 25 UNITS SUB-Q (20:34)
[2019-03-19 22:00] VITALS: BP 100/61; PULSE 101; RESP 20; TEMP 36.4; O2SAT 94
[2019-03-19 22:11] LABS: Glucose Point of Care 200 (65-105)
[2019-03-20 03:23] LABS: Albumin 3.1 g/dL (3.8-4.8); Alpha 1 Globulin 0.3 g/dL (0.2-0.3); Alpha 2 Globulin 0.5 g/dL (0.5-0.9); Beta 1 Globulin 0.4 g/dL (0.4-0.6); Gamma Globulin 1.9 g/dL (0.8-1.7); Protein, Total 6.5 g/dL (6.1-8.1)
[2019-03-20 06:00] VITALS: BP 103/70; PULSE 78; RESP 20; TEMP 37.1; O2SAT 93
--- NOTE | 2019-03-20 07:59 | WPDGIPROGNO ---
Progress Note: A&P Additional Plan Patient alert and comfortable this morning. Slept in a chair all night. She states she is much less short of breath. She still notes rather significant pedal edema. Physical exam reveals her to be alert. On supplemental oxygen. Lungs reveal a few rales. Heart is without murmur. Abdomen is obese. Soft and nontender. Extremities with 4+ pedal edema. Impression 1. Iron deficiency anemia. 2. Ascending colon mass. Histology pending. [place] to be likely etiology for her anemia. 3. Congestive heart failure. Plan is to continue diuresis. Await histology of colon lesion. This lesion may benefit from surgical resection if her general medical condition improves in the future. CEA level is pending. Subjective Date/time seen: 03/20/19 07:59 Objective Data Vital Signs Vital Signs: Vital Signs - 24 hr 03/19/19 08:00 03/19/19 14:41 03/19/19 20:31 Temperature 37.4 C Pulse Rate 69 94 70 Respiratory Rate 20 16 Blood Pressure 115/55 L Pulse Oximetry 98 96 03/19/19 22:00 03/20/19 06:00 Temperature 36.4 C 37.1 C Pulse Rate 101 H 78 Respiratory Rate 20 20 Blood Pressure 100/61 103/70 Pulse Oximetry 94 93 Intake/Output Intake/Output: Intake & Output 03/17/19 03/18/19 03/19/19 03/20/19 23:59 23:59 23:59 23:59 Intake Total 4350 976 1790 300 Output Total 1650 2300 1300 750 Balance 2700 -1324 490 -450 Meds/Results Medications: Active Medications Generic Name Dose Route Start Last Admin Trade Name Freq PRN Reason Stop Dose Admin Acetaminophen 650 mg 03/14/19 18:01 03/19/19 21:41 Tylenol Tablet PO 650 mg Q4H PRN Administration Headache Albuterol 5 mg 03/14/19 18:01 Albuterol Sulf Neb 2.5mg/0.5ml INHALATION Q6HRT PRN Shortness Of Breath Dextrose 12.5 gm 03/15/19 00:38 Dextrose 50% Syringe IV PUSH PRN PRN Hypoglycemia Protocol Diltiazem HCl 120 mg 03/15/19 09:00 03/19/19 08:31 Cardizem Cd PO 120 mg QAM LIO Administration Docusate Sodium 100 mg 03/14/19 21:00 03/19/19 20:31 Colace Capsule PO 100 mg Q12HR LIO Administration Ferrous Sulfate 324 mg 03/17/19 17:00 03/19/19 16:25 Ferrous Sulfate PO 324 mg BIDWM LIO Administration Furosemide 40 mg 03/17/19 17:00 03/19/19 16:24 Lasix Inj IV PUSH 40 mg BID LIO Administration Glucagon 1 mg 03/15/19 00:38 Glucagon For Inj IM PRN PRN Hypoglycemia Protocol Glucose 15 gm 03/15/19 00:38 Glutose 15 PO PRN PRN Hypoglycemia Protocol Guaifenesin 200 mg 03/14/19 18:01 03/19/19 21:40 Guaifenesin Liq PO 200 mg Q4H PRN Administration Cough Dextrose 1,000 mls @ 100 mls/hr 03/15/19 00:38 Dextrose 5% 1,000 Ml IVPB PRN PRN Hypoglycemia Protocol Insulin Aspart 3 - 6 units 03/15/19 08:00 03/19/19 16:27 Novolog SUB-Q 3 units TIDWM LIO Administration Protocol Insulin Glargine 25 units 03/14/19 21:00 03/19/19 20:34 Lantus SUB-Q 25 units HS LIO Administration Ipratropium [place] 0.5 mg 03/14/19 18:01 Atrovent Neb INHALATION Q6HRT PRN Shortness Of Breath Lidocaine HCl 0.3 ml 03/17/19 08:08 Xylocaine 2% Local Inj INTRADERM ONCE PRN to numb area Loratadine 10 mg 03/15/19 09:00 03/19/19 08:32 Claritin PO 10 mg DAILY LIO Administration Magnesium Oxide 400 mg 03/15/19 09:00 03/19/19 08:32 Mag-Ox PO 400 mg DAILY LIO Administration Metoprolol Tartrate 50 mg 03/15/19 21:00 03/19/19 20:31 Lopressor PO 50 mg Q12HR LIO Administration Multi-Ingred Cream/Lotion/Oil/Oint 1 applic 03/15/19 09:00 03/19/19 08:38 Minerin Creme TOPICAL 1 applic DAILY LIO Administration Multivitamins/Calcium 1 tablet 03/15/19 09:00 03/19/19 08:37 Therapeutic Multivitamins/Minerals PO 1 tablet DAILY LIO Administration Ondansetron HCl 4 mg 03/14/19 17:37 Zofran Inj IV PUSH
[2019-03-20 08:23] VITALS: PULSE 78
[2019-03-20] MEDS: MAGNESIUM OXIDE 400 MG TABLET PO (08:23)
[2019-03-20] MEDS: FUROSEMIDE INJ 40 MG/4 ML VIAL IV PUSH (08:23)
[2019-03-20] MEDS: POTASSIUM CHLORIDE 10 MEQ TABLET.ER 40 MEQ PO ×4 (08:23→19:56)
[2019-03-20] MEDS: DOCUSATE SODIUM 100 MG CAPSULE PO ×2 (08:23→19:49)
[2019-03-20] MEDS: THERAPEUTIC MULTIVITAMINS/MINERALS TAB (*BKC) 1 TABLET PO (08:23)
[2019-03-20] MEDS: LORATADINE 10 MG TABLET PO (08:23)
[2019-03-20] MEDS: FERROUS SULFATE 324 MG TABLET PO ×2 (08:23→17:57)
[2019-03-20] MEDS: PANTOPRAZOLE 40 MG TABLET PO (08:23)
[2019-03-20] MEDS: METOPROLOL TARTRATE 50 MG TAB PO ×2 (08:23→19:50)
[2019-03-20] MEDS: EUCERIN CREAM 120 GM JAR 1 APPLIC TOPICAL (08:24)
[2019-03-20] MEDS: TOLNAFTATE 1% POWDER 45 GM BTL 1 APPLIC TOPICAL ×2 (08:24→19:58)
[2019-03-20 09:13] LABS: Glucose Point of Care 77 (65-105)
[2019-03-20 09:51] VITALS: O2SAT 93
[2019-03-20 12:18] LABS: Hematocrit 31.5 % (37.0-47.0); Hemoglobin 8.4 g/dL (12.0-15.0); Mean Corpuscular HGB Conc 26.7 g/dl (32-36); Mean Corpuscular Hemoglobin 18.2 pg (26-34); Mean Corpuscular Volume 68.2 fl (80-100); Platelet Count Result 295 k/mm3 (150-375); Red Blood Count 4.62 M/mm3 (4.2-5.4); Red Cell Distribution Width 26.3 % (11.5-14.5); White Blood Count 8.8 K/mm3 (4.5-10.0)
[2019-03-20 12:31] LABS: Blood Urea Nitrogen 36 mg/dL (7-17); Calcium 8.9 mg/dL (8.4-10.2); Carbon Dioxide 28 mmol/L (22-30); Chloride 96 mmol/L (98-107); Estimated CRCL calculation 28 ml/min; Estimated Glomerular Filt Rate 33; Glucose 146 mg/dL (65-105); Potassium 4.6 mmol/L (3.4-5.0); Sodium 138 mmol/L (137-145)
[2019-03-20] MEDS: ACETAMINOPHEN 325 MG TABLET 650 MG PO ×3 (13:09→23:15)
[2019-03-20] MEDS: GUAIFENESIN 200 MG/10 ML UDC PO ×2 (13:10→23:16)
[2019-03-20 13:32] LABS: Glucose Point of Care 160 (65-105)
[2019-03-20 14:00] VITALS: BP 96/53; PULSE 110; RESP 18; TEMP 37.1; O2SAT 96
--- NOTE | 2019-03-20 16:07 | PM.PNCARD ---
Progress Note: A&P Assessment and Plan (1) Hypokalemia: Code(s): E87.6 - Hypokalemia Status: Chronic Assessment and Plan: Potassium 4.6 today. Continue current dosing of potassium for now. Continue to monitor especially with addition of metolazone. (2) Chronic kidney disease, stage IV (severe): Code(s): N18.4 - Chronic kidney disease, stage 4 (severe) Status: Acute Assessment and Plan: renal function is stable. Continue to monitor. Tolerating diuresis. (3) Severe obstructive sleep apnea: Code(s): G47.33 - Obstructive sleep apnea (adult) (pediatric) Status: Chronic Assessment and Plan: Uses oxygen at 1 L at night (4) Chronic atrial fibrillation: Code(s): I48.20 - Chronic atrial fibrillation, unspecified Status: Acute Assessment and Plan: Heart rate is reasonably controlled. Tolerating metoprolol at 50 mg p.o. b.i.d. and diltiazem. Continue to hold apixaban. Colonoscopy: In the mid ascending colon a nonobstructing, large size, fungating, malignant appearing ulcerated 3 cm x 5 cm mass was noted. Stigmata of bleeding was noted from the mass. Awaiting histology. Dr Perales following. (5) Congestive heart failure: Qualifiers: Heart failure chronicity: chronic Heart failure type: diastolic Qualified Code(s): I50.32 - Chronic diastolic (congestive) heart failure Code(s): I50.9 - Heart failure, unspecified Status: Acute Assessment and Plan: Will transition to p.o. diuretics. Continue furosemide at 40 mg b.i.d. and add metolazone 5 mg every 48 hours starting in the morning. Monitor electrolytes closely. (6) Chronic anticoagulation: Code(s): Z79.01 - assisted (current) use of anticoagulants Status: Acute Assessment and Plan: As above. Additional Plan Plan discussed with Dr Molina 1615 03/20/2019 Time Spent With Patient Time with patient: less than 15 minutes Subjective Date/time seen: 03/20/19 16:07 Interval history: Follow up for: Worsening edema, shortness of breath, anemia, CKD, chronic atrial fibrillation Date of service: 03/20/2019 Subjective: Wants to go home. Denied chest pain. Has some epigastric/upper abdominal discomfort from coughing. Shortness of breath with exertional activities at baseline. Lightheaded when she gets up too quickly. Review of Systems Constitutional: Constitutional: Reports fatigue, Denies headache(s) and Reports weakness Eyes: Eyes: Denies blurry vision ENT: Denies headache(s), Denies lip swelling and Denies neck pain Cardiovascular: Cardiovascular: Denies chest pain with activity, Reports leg edema, Reports lightheadedness (If up too quickly) and Reports dyspnea on exertion (At baseline) Respiratory: Respiratory: Reports cough (Number Dr.), Denies hemoptysis, Reports dyspnea on exertion (At baseline) and Denies wheezing Gastrointestinal: Gastrointestinal: Reports abdominal pain (Epigastric area from coughing), Denies nausea and Denies hematemesis Genitourinary: Genitourinary: Denies hematuria Musculoskeletal: Musculoskeletal: Denies neck pain Integumentary/Breasts: Skin/Breast: Reports wounds Neurologic: Denies confusion, Denies headache(s) and Reports weakness Psychiatric: Psychiatric: Denies anxiety and Denies confusion Endocrine: Endocrine: Reports fatigue and Denies flushing Hematologic/Lymphatic: Hematologic/Lymphatic: Denies easy bleeding Allergic/Immunologic: Allergic/Immunologic: Denies lip swelling and Denies wheezing Exam Const: General: cooperative and no acute distress Orientation/consciousness: patient oriented x3 HENMT: General nose exam: Normal nares present Eyes: Sclera: sclerae normal Neck: Neck: supple Chest: Chest palpation & inspec
--- NOTE | 2019-03-20 17:58 | PM.PNNEP ---
Progress Note: A&P Assessment and Plan (1) Chronic kidney disease, stage IV (severe): Code(s): N18.4 - Chronic kidney disease, stage 4 (severe) Status: Acute Assessment and Plan: baseline creatinine usually ~ 1.6 - 2.0mg/dl due to diabetes, hypertension, and chronic pre renal azotemia creatinine better than baseline -- probably due to bed bound status and some muscle loss with acute illness (2) Generalized edema: Code(s): R60.1 - Generalized edema Status: Acute Assessment and Plan: multifactorial: - right sided heart failure - obstructive sleep apnea - atrial fibrillation on diuretics (3) Atrial fibrillation with slow ventricular response: Code(s): I48.91 - Unspecified atrial fibrillation Status: Acute Assessment and Plan: Cardiology is seeing/managing (4) Hypokalemia: Code(s): E87.6 - Hypokalemia Status: Chronic Assessment and Plan: chronic issues at baseline doing better at this time Not much else to add from renal perspective -- will continue to follow from a distance. Subjective Date/time seen: 03/20/19 17:58 Appears to be doing reasonably well -- tolerating diuretics with relative stability in potassium level; no events overnight or earlier this AM; anxious for discharge. Exam Narrative: Exam Narrative: General: WD/WN female in NAD Heart: normal S1 and S2; no rub Lungs: decreased at bases Abdomen: soft, nontender, nondistended, positive bowel sounds Extremities: no cyanosis or clubbing; 1+ edema Skin: No rash or nodules Objective Data Vital Signs Vital Signs: Vital Signs - 24 hr 03/19/19 20:31 03/19/19 22:00 03/20/19 06:00 Temperature 36.4 C 37.1 C Pulse Rate 70 101 H 78 Respiratory Rate 20 20 Blood Pressure 100/61 103/70 Pulse Oximetry 94 93 03/20/19 08:23 03/20/19 09:51 03/20/19 14:00 Temperature 37.1 C Pulse Rate 78 110 H Respiratory Rate 18 Blood Pressure 96/53 L Pulse Oximetry 93 96 Intake/Output Intake/Output: Intake & Output 03/17/19 03/18/19 03/19/19 03/20/19 23:59 23:59 23:59 23:59 Intake Total 4350 976 1790 540 Output Total 1650 2300 1300 750 Balance 2700 -1324 490 -210 Meds/Results Medications: Active Medications Generic Name Dose Route Start Last Admin Trade Name Freq PRN Reason Stop Dose Admin Acetaminophen 650 mg 03/14/19 18:01 03/20/19 13:09 Tylenol Tablet PO 650 mg Q4H PRN Administration Headache Albuterol 5 mg 03/14/19 18:01 Albuterol Sulf Neb 2.5mg/0.5ml INHALATION Q6HRT PRN Shortness Of Breath Dextrose 12.5 gm 03/15/19 00:38 Dextrose 50% Syringe IV PUSH PRN PRN Hypoglycemia Protocol Diltiazem HCl 120 mg 03/15/19 09:00 03/20/19 08:23 Cardizem Cd PO 120 mg QAM LIO Administration Docusate Sodium 100 mg 03/14/19 21:00 03/20/19 08:23 Colace Capsule PO 100 mg Q12HR LIO Administration Ferrous Sulfate 324 mg 03/17/19 17:00 03/20/19 17:57 Ferrous Sulfate PO 324 mg BIDWM LIO Administration Furosemide 40 mg 03/20/19 17:15 Lasix Tablet PO BID LIO Glucagon 1 mg 03/15/19 00:38 Glucagon For Inj IM PRN PRN Hypoglycemia Protocol Glucose 15 gm 03/15/19 00:38 Glutose 15 PO PRN PRN Hypoglycemia Protocol Guaifenesin 200 mg 03/14/19 18:01 03/20/19 13:10 Guaifenesin Liq PO 200 mg Q4H PRN Administration Cough Dextrose 1,000 mls @ 100 mls/hr 03/15/19 00:38 Dextrose 5% 1,000 Ml IVPB PRN PRN Hypoglycemia Protocol Insulin Aspart 3 - 6 units 03/15/19 08:00 03/20/19 12:01 Novolog SUB-Q Not Given TIDWM [facility] Protocol Insulin Glargine 25 units 03/14/19 21:00 03/19/19 20:34 Lantus SUB-Q 25 units HS LIO Administration Ipratropium [place] 0.5 mg 03/14/19 18:01 Atrovent Neb INHALATION Q6HRT PRN Shortness Of Breath Lidocaine HCl 0
[2019-03-20] MEDS: FUROSEMIDE 40 MG TABLET PO (18:01)
[2019-03-20 18:23] LABS: Glucose Point of Care 123 (65-105)
--- NOTE | 2019-03-20 18:45 | P.PNIM_ITS ---
Progress Note: A&P Assessment and Plan (1) Anemia: Qualifiers: Anemia type: unspecified type Qualified Code(s): D64.9 - Anemia, unspecified Code(s): D64.9 - Anemia, unspecified Status: Acute Assessment and Plan: * heme + stool * iron panel c/w iron deficiency * 03/15 antibody delaying transfusion * 03/16 hgb 8.1; endoscopic evaluation 03/17 * 03/17 hgb 8.4; endoscopy with colon mass, path pending * 03/18 hgb 7.9 * 03/19 hgb 8.0, path pending on bx * 03/20 hgb 8.4, path from colon bx still pending (2) Congestive heart failure: Qualifiers: Heart failure type: diastolic Heart failure chronicity: chronic Qualified Code(s): I50.32 - Chronic diastolic (congestive) heart failure Code(s): I50.9 - Heart failure, unspecified Status: Acute Assessment and Plan: * Transition back to PO metalozone and PO furosemide * Home with soon (3) Atrial fibrillation: Qualifiers: Atrial fibrillation type: permanent Qualified Code(s): I48.21 - Permanent atrial fibrillation Code(s): I48.91 - Unspecified atrial fibrillation Status: Acute Assessment and Plan: * Eliquis and ASA on hold. Continue with metoprolol. 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 Better with movement. Eating well. No cp, less sob, less swelling. No gi/gu c/o. No bleeding. Review of Systems Review of Systems: All systems reviewed & are unremarkable except as noted in HPI and below Exam Narrative: Exam Narrative: HEENT: EOMI, PERRL, pharyngeal mucosa pink and intact NECK: No JVD CHEST: Decr BS at bases HEART: NL S1/S2, regular, no murmur ABDOMEN: BS+, soft, nontender, no mass, no bruits EXTREMITIES: No cyanosis, 1+ pretibial edema NEUROLOGIC: CN intact and symmetric to inspection. MUSCULOSKELETAL: Tone and strength symmetric. PSYCH: Alert. Oriented to person, place, and time. Objective Data Vital Signs Vital Signs: Vital Signs - 24 hr 03/19/19 20:31 03/19/19 22:00 03/20/19 06:00 Temperature 97.6 F 98.8 F Pulse Rate 70 101 H 78 Respiratory Rate 20 20 Blood Pressure 100/61 103/70 Pulse Oximetry 94 93 03/20/19 08:23 03/20/19 09:51 03/20/19 14:00 Temperature 98.8 F Pulse Rate 78 110 H Respiratory Rate 18 Blood Pressure 96/53 L Pulse Oximetry 93 96 Intake/Output Intake/Output: Intake & Output 03/17/19 03/18/19 03/19/19 03/20/19 23:59 23:59 23:59 23:59 Intake Total 4350 976 1790 540 Output Total 1650 2300 1300 750 Balance 1870 -0435 490 -210 Meds/Results Medications: Active Medications
--- NOTE | 2019-03-20 18:45 | PM.IMPN ---
Progress Note: A&P Assessment and Plan (1) Anemia: Qualifiers: Anemia type: unspecified type Qualified Code(s): D64.9 - Anemia, unspecified Code(s): D64.9 - Anemia, unspecified Status: Acute Assessment and Plan: heme + stool iron panel c/w iron deficiency 03/15 antibody delaying transfusion 03/16 hgb 8.1; endoscopic evaluation 03/17 03/17 hgb 8.4; endoscopy with colon mass, path pending 03/18 hgb 7.9 03/19 hgb 8.0, path pending on bx 03/20 hgb 8.4, path from colon bx still pending (2) Congestive heart failure: Qualifiers: Heart failure type: diastolic Heart failure chronicity: chronic Qualified Code(s): I50.32 - Chronic diastolic (congestive) heart failure Code(s): I50.9 - Heart failure, unspecified Status: Acute Assessment and Plan: Transition back to PO metalozone and PO furosemide Home with HH soon (3) Atrial fibrillation: Qualifiers: Atrial fibrillation type: permanent Qualified Code(s): I48.21 - Permanent atrial fibrillation Code(s): I48.91 - Unspecified atrial fibrillation Status: Acute Assessment and Plan: Eliquis and ASA on hold. Continue with metoprolol. 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 Better with movement. Eating well. No cp, less sob, less swelling. No gi/gu c/o. No bleeding. Review of Systems Review of Systems: All systems reviewed & are unremarkable except as noted in HPI and below Exam Narrative: Exam Narrative: HEENT: EOMI, PERRL, pharyngeal mucosa pink and intact NECK: No JVD CHEST: Decr BS at bases HEART: NL S1/S2, regular, no murmur ABDOMEN: BS+, soft, nontender, no mass, no bruits EXTREMITIES: No cyanosis, 1+ pretibial edema NEUROLOGIC: CN intact and symmetric to inspection. MUSCULOSKELETAL: Tone and strength symmetric. PSYCH: Alert. Oriented to person, place, and time. Objective Data Vital Signs Vital Signs: Vital Signs - 24 hr 03/19/19 20:31 03/19/19 22:00 03/20/19 06:00 Temperature 97.6 F 98.8 F Pulse Rate 70 101 H 78 Respiratory Rate 20 20 Blood Pressure 100/61 103/70 Pulse Oximetry 94 93 03/20/19 08:23 03/20/19 09:51 03/20/19 14:00 Temperature 98.8 F Pulse Rate 78 110 H Respiratory Rate 18 Blood Pressure 96/53 L Pulse Oximetry 93 96 Intake/Output Intake/Output: Intake & Output 03/17/19 03/18/19 03/19/19 03/20/19 23:59 23:59 23:59 23:59 Intake Total 4350 976 1790 540 Output Total 1650 2300 1300 750 Balance 2700 -1324 490 -210 Meds/Results Medications: Active Medications Generic Name Dose Route Start Last Admin Trade Name Freq PRN Reason Stop Dose Admin Acetaminophen 650 mg 03/14/19 18:01 03/20/19 18:01 Tylenol Tablet PO 650 mg Q4H PRN Administration Headache Albuterol 5 mg 03/14/19 18:01 Albuterol Sulf Neb 2.5mg/0.5ml INHALATION Q6HRT PRN Shortness Of Breath Dextrose 12.5 gm 03/15/19 00:38 Dextrose 50% Syringe IV PUSH PRN PRN Hypoglycemia Protocol Diltiazem HCl 120 mg 03/15/19 09:00 03/20/19 08:23 Cardizem Cd PO 120 mg QAM LIO Administration Docusate Sodium 100 mg 03/14/19 21:00 03/20/19 08:23 Colace Capsule PO 100 mg Q12HR LIO Administration Ferrous Sulfate 324 mg 03/17/19 17:00 03/20/19
[2019-03-20 19:50] VITALS: PULSE 92
[2019-03-20] MEDS: INSULIN GLARGINE (*BKC) 100 UNITS/ML 25 UNITS SUB-Q (20:11)
[2019-03-20 21:16] LABS: Glucose Point of Care 138 (65-105)
[2019-03-20 22:00] VITALS: BP 123/63; PULSE 68; RESP 20; TEMP 36.6; O2SAT 100
[2019-03-21 06:00] VITALS: BP 122/88; PULSE 88; RESP 18; TEMP 36.9; O2SAT 100
[2019-03-21 06:35] LABS: Hematocrit 31.6 % (37.0-47.0); Hemoglobin 8.7 g/dL (12.0-15.0); Mean Corpuscular HGB Conc 27.5 g/dl (32-36); Mean Corpuscular Hemoglobin 18.4 pg (26-34); Mean Corpuscular Volume 66.9 fl (80-100); Mean Platelet Volume 9.6 fl (7.4-10.4); Platelet Count Result 311 k/mm3 (150-375); Red Blood Count 4.72 M/mm3 (4.2-5.4); Red Cell Distribution Width 26.8 % (11.5-14.5); White Blood Count 9.9 K/mm3 (4.5-10.0)
[2019-03-21 06:52] LABS: Blood Urea Nitrogen 38 mg/dL (7-17); Calcium 9.2 mg/dL (8.4-10.2); Carbon Dioxide 27 mmol/L (22-30); Chloride 100 mmol/L (98-107); Estimated CRCL calculation 25 ml/min; Estimated Glomerular Filt Rate 29; Glucose 85 mg/dL (65-105); Sodium 137 mmol/L (137-145)
[2019-03-21] MEDS: FUROSEMIDE 40 MG TABLET PO ×2 (07:41→16:33)
[2019-03-21] MEDS: metOLazone 5 MG TABLET PO (07:43)
[2019-03-21 08:16] LABS: Glucose Point of Care 77 (65-105)
[2019-03-21] MEDS: THERAPEUTIC MULTIVITAMINS/MINERALS TAB (*BKC) 1 TABLET PO (09:02)
[2019-03-21 09:03] VITALS: PULSE 88
[2019-03-21] MEDS: METOPROLOL TARTRATE 50 MG TAB PO ×2 (09:03→21:55)
[2019-03-21] MEDS: FERROUS SULFATE 324 MG TABLET PO ×2 (09:03→16:33)
[2019-03-21] MEDS: MAGNESIUM OXIDE 400 MG TABLET PO (09:03)
[2019-03-21 09:26] LABS: Glucose Point of Care 122 (65-105)
[2019-03-21] MEDS: LORATADINE 10 MG TABLET PO (10:52)
[2019-03-21] MEDS: EUCERIN CREAM 120 GM JAR 1 APPLIC TOPICAL (10:53)
[2019-03-21] MEDS: TOLNAFTATE 1% POWDER 45 GM BTL 1 APPLIC TOPICAL ×2 (10:54→21:57)
--- NOTE | 2019-03-21 10:59 | WPDGIPROGNO ---
Progress Note: A&P Additional Plan Patient remains alert. Breathing more easily. Now only using supplemental oxygen at night. On physical exam lungs reveal a few Franny. Heart without murmur. Abdomen is obese bowel sounds are present soft and nontender. Extremities have rather profound edema noted peripherally. Impression 1. Ascending colon mass. Final histology still pending. Likely etiology for her iron deficiency. 2. Iron deficiency anemia. 3. Congestive heart failure. Plan is to continue diuresis. Low-salt diet. Iron replacement. Await histology of right colon lesion to see if surgery will be necessary. Subjective Date/time seen: 03/21/19 10:59 Objective Data Vital Signs Vital Signs: Vital Signs - 24 hr 03/20/19 14:00 03/20/19 19:50 03/20/19 22:00 Temperature 37.1 C 36.6 C Pulse Rate 110 H 92 68 Respiratory Rate 18 20 Blood Pressure 96/53 L 123/63 Pulse Oximetry 96 100 03/21/19 06:00 03/21/19 09:03 Temperature 36.9 C Pulse Rate 88 88 Respiratory Rate 18 Blood Pressure 122/88 Pulse Oximetry 100 Intake/Output Intake/Output: Intake & Output 03/18/19 03/19/19 03/20/19 03/21/19 23:59 23:59 23:59 23:59 Intake Total 976 1790 940 500 Output Total 2300 1300 1350 400 Balance -1324 490 -410 100 Meds/Results Medications: Active Medications Generic Name Dose Route Start Last Admin Trade Name Freq PRN Reason Stop Dose Admin Acetaminophen 650 mg 03/14/19 18:01 03/20/19 23:15 Tylenol Tablet PO 650 mg Q4H PRN Administration Headache Albuterol 5 mg 03/14/19 18:01 Albuterol Sulf Neb 2.5mg/0.5ml INHALATION Q6HRT PRN Shortness Of Breath Dextrose 12.5 gm 03/15/19 00:38 Dextrose 50% Syringe IV PUSH PRN PRN Hypoglycemia Protocol Diltiazem HCl 120 mg 03/15/19 09:00 03/21/19 09:02 Cardizem Cd PO 120 mg QAM LIO Administration Docusate Sodium 100 mg 03/14/19 21:00 03/21/19 10:07 Colace Capsule PO Not Given Q12HR LIO Ferrous Sulfate 324 mg 03/17/19 17:00 03/21/19 09:03 Ferrous Sulfate PO 324 mg BIDWM LIO Administration Furosemide 40 mg 03/20/19 17:15 03/21/19 07:41 Lasix Tablet PO 40 mg BID LIO Administration Glucagon 1 mg 03/15/19 00:38 Glucagon For Inj IM PRN PRN Hypoglycemia Protocol Glucose 15 gm 03/15/19 00:38 Glutose 15 PO PRN PRN Hypoglycemia Protocol Guaifenesin 200 mg 03/14/19 18:01 03/20/19 23:16 Guaifenesin Liq PO 200 mg Q4H PRN Administration Cough Dextrose 1,000 mls @ 100 mls/hr 03/15/19 00:38 Dextrose 5% 1,000 Ml IVPB PRN PRN Hypoglycemia Protocol Insulin Aspart 3 - 6 units 03/15/19 08:00 03/21/19 08:56 Novolog SUB-Q Not Given TIDWM LIO Protocol Insulin Glargine 25 units 03/14/19 21:00 03/20/19 20:11 Lantus SUB-Q 25 units HS LIO Administration Ipratropium [place] 0.5 mg 03/14/19 18:01 Atrovent Neb INHALATION Q6HRT PRN Shortness Of Breath Lidocaine HCl 0.3 ml 03/17/19 08:08 Xylocaine 2% Local Inj INTRADERM ONCE PRN to numb area Loratadine 10 mg 03/15/19 09:00 03/21/19 10:52 Claritin PO 10 mg DAILY LIO Administration Magnesium Oxide 400 mg 03/15/19 09:00 03/21/19 09:03 Mag-Ox PO 400 mg DAILY LIO Administration Metolazone 5 mg 03/21/19 08:00 03/21/19 07:43 Zaroxolyn PO 5 mg Q48H LIO Administration Metoprolol Tartrate 50 mg 03/15/19 21:00 03/21/19 09:03 Lopressor PO 50 mg Q12HR LIO Administration Multi-Ingred Cream/Lotion/Oil/Oint 1 applic 03/15/19 09:00 03/21/19 10:53 Minerin Creme TOPICAL 1 applic DAILY LIO Administration Multivitamins/Calcium 1 tablet 03/15/19 09:00 03/21/19 09:02 Therapeutic Multivitamins/Minerals PO 1 tablet DAILY LIO Administration Ondansetron HCl 4 mg 03/14/19 17:37 Zofran Inj IV PUSH Q6H PRN Nausea And Vomiting Oxybuty
[2019-03-21 11:03] LABS: Blood Urea Nitrogen 38 mg/dL (7-17); Calcium 9.3 mg/dL (8.4-10.2); Carbon Dioxide 20 mmol/L (22-30); Chloride 103 mmol/L (98-107); Estimated CRCL calculation 25 ml/min; Estimated Glomerular Filt Rate 29; Glucose 147 mg/dL (65-105); Potassium 5.9 mmol/L (3.4-5.0); Sodium 137 mmol/L (137-145)
[2019-03-21 12:30] LABS: Glucose Point of Care 169 (65-105)
--- NOTE | 2019-03-21 13:37 | PCDIET ---
Nutrition Screen Complete: Pt current nutrition is 2gm Na. Nutrition recommendation: Agree Last recorded weight is 93.6 kg. Bowel Motility: Last BM 03/17. Colace on board but not given today Labs Reviewed: Hgb 8.7, Hct 31.6, K 5.9, GFR 29, Glucose 147 Meds Noted:Lantus, Colace, Fe, Mag Oxide, MTV Additional Notes: Seeing pt 2/ to LOS. Pt on a 2gm Na diet. notes dieresis so wt loss expected. Fe replacement provided and last BM 4 days ago. Motility agents ordered. Appetite and intake is good at 95-100% of all meals. MD notes ascending colon mass. We will continue to monitor for adequate intake, labs, and wt changes every five days.
[2019-03-21 14:00] VITALS: BP 120/67; PULSE 96; RESP 16; TEMP 36.6; O2SAT 98
[2019-03-21] MEDS: ACETAMINOPHEN 325 MG TABLET 650 MG PO ×2 (14:50→19:01)
[2019-03-21 16:38] LABS: Glucose Point of Care 150 (65-105)
[2019-03-21] MEDS: GUAIFENESIN 200 MG/10 ML UDC PO (19:02)
--- NOTE | 2019-03-21 21:17 | P.PNIM_ITS ---
Progress Note: A&P Assessment and Plan (1) Anemia: Qualifiers: Anemia type: unspecified type Qualified Code(s): D64.9 - Anemia, unspecified Code(s): D64.9 - Anemia, unspecified Status: Acute Assessment and Plan: * heme + stool * iron panel c/w iron deficiency start IV fe today 300 mg * 03/15 antibody delaying transfusion * 03/16 hgb 8.1; endoscopic evaluation 03/17 * 03/17 hgb 8.4; endoscopy with colon mass * 03/18 hgb 7.9 * 03/19 hgb 8.0, path pending on bx * 03/20 hgb 8.4, path from colon bx st * 03/21 hgb 8.7 and path report adenoca transverse colon (2) Congestive heart failure: Qualifiers: Heart failure type: diastolic Heart failure chronicity: chronic Qualified Code(s): I50.32 - Chronic diastolic (congestive) heart failure Code(s): I50.9 - Heart failure, unspecified Status: Acute Assessment and Plan: * Transition back to PO metalozone and PO furosemide recheck venous doppler am too (3) Atrial fibrillation: Qualifiers: Atrial fibrillation type: permanent Qualified Code(s): I48.21 - Permanent atrial fibrillation Code(s): I48.91 - Unspecified atrial fibrillation Status: Acute Assessment and Plan: * Eliquis and ASA on hold. Continue with metoprolol. (4) Type 2 diabetes mellitus with hyperglycemia, with long-term current use of insulin: Code(s): E11.65 - Type 2 diabetes mellitus with hyperglycemia; Z79.4 - manager terminal (current) use of insulin Status: Acute Assessment and Plan: * Continue with basal and sliding scale insulin * 03/17 FBS 99 after basal insulin held * FBX today 149 (5) Hypokalemia: Code(s): E87.6 - Hypokalemia Status: Chronic Assessment and Plan: * Replace mag and K iv and po * 27 AM furosemide and metolazone held * 03/18 3.2, increased to 40mEq PO QID, IV mag x 1gm * 03/19 3.9, mag 1.9, 03/20 4.6 * up to 6.0 today so kcl deceded and moniter (6) DVT prophylaxis: Code(s): Z29.9 - Encounter for prophylactic measures, unspecified Status: Acute Assessment and Plan: start low dose lovenox 30 qd Subjective Date/time seen: 03/21/19 21:17 Interval history: date of visit 03/21. Sore in back from therapy, then sitting in chair. Better with movement. Eating well. No cp, less sob, less swelling. No gi/gu c/o. No bleeding. Daughter feels edema worse and more pain of legs Exam Narrative: Exam Narrative: Bp 120/66 p 96 sat 98% ra HEENT: EOMI, PERR NECK: No JVD CHEST: Decr BS at bases HEART: NL S1/S2, regular, no murmur ABDOMEN: BS+, soft, nontender, no mass, no bruits EXTREMITIES: No cyanosis, 1+-2+ pretibial edema but legs rapped NEUROLOGIC: CN intact and symmetric to inspection. MUSCULOSKELETAL: Tone and strength symmetric. Objective Data Vital Signs Vital Signs: Vital Signs - 24 hr 03/20/19 22:00 03/21/19 06:00 03/21/19 09:03 Temperature 36.6 C 36.9 C Pulse Rate 68 88 88 Respiratory Rate 20 18 Blood Pressure 123/63 122/88 Pulse Oximetry 100 100 03/21/19 14:00 Temperature 36.6 C Pulse Rate 96 Respiratory Rate 16 Blood Pressure 120/67 Pulse Oximetry 98 Intake/Output Intake/Output: Intake & Output 03/18/19 03/19/19 03/20/19 03/21/19 23:59 23:59 23:59 23:59 Intake Total 976 0470 832 1560 Output Total 2300 1300 1350 9
--- NOTE | 2019-03-21 21:17 | PM.IMPN ---
Progress Note: A&P Assessment and Plan (1) Anemia: Qualifiers: Anemia type: unspecified type Qualified Code(s): D64.9 - Anemia, unspecified Code(s): D64.9 - Anemia, unspecified Status: Acute Assessment and Plan: heme + stool iron panel c/w iron deficiency start IV fe today 300 mg 03/15 antibody delaying transfusion 03/16 hgb 8.1; endoscopic evaluation 03/17 03/17 hgb 8.4; endoscopy with colon mass 03/18 hgb 7.9 03/19 hgb 8.0, path pending on bx 03/20 hgb 8.4, path from colon bx st 03/21 hgb 8.7 and path report adenoca transverse colon (2) Congestive heart failure: Qualifiers: Heart failure type: diastolic Heart failure chronicity: chronic Qualified Code(s): I50.32 - Chronic diastolic (congestive) heart failure Code(s): I50.9 - Heart failure, unspecified Status: Acute Assessment and Plan: Transition back to PO metalozone and PO furosemide recheck venous doppler am too (3) Atrial fibrillation: Qualifiers: Atrial fibrillation type: permanent Qualified Code(s): I48.21 - Permanent atrial fibrillation Code(s): I48.91 - Unspecified atrial fibrillation Status: Acute Assessment and Plan: Eliquis and ASA on hold. Continue with metoprolol. (4) Type 2 diabetes mellitus with hyperglycemia, with long-term current use of insulin: Code(s): E11.65 - Type 2 diabetes mellitus with hyperglycemia; Z79.4 - roasterman (current) use of insulin Status: Acute Assessment and Plan: Continue with basal and sliding scale insulin 03/17 FBS 99 after basal insulin held FBX today 149 (5) Hypokalemia: Code(s): E87.6 - Hypokalemia Status: Chronic Assessment and Plan: Replace mag and K iv and po 2 AM furosemide and metolazone held 03/18 3.2, increased to 40mEq PO QID, IV mag x 1gm 03/19 3.9, mag 1.9, 03/20 4.6 up to 6.0 today so kcl deceded and moniter (6) DVT prophylaxis: Code(s): Z29.9 - Encounter for prophylactic measures, unspecified Status: Acute Assessment and Plan: start low dose lovenox 30 qd Subjective Date/time seen: 03/21/19 21:17 Interval history: date of visit 03/21. Sore in back from therapy, then sitting in chair. Better with movement. Eating well. No cp, less sob, less swelling. No gi/gu c/o. No bleeding. Daughter feels edema worse and more pain of legs Exam Narrative: Exam Narrative: Bp 120/66 p 96 sat 98% ra HEENT: EOMI, PERR NECK: No JVD CHEST: Decr BS at bases HEART: NL S1/S2, regular, no murmur ABDOMEN: BS+, soft, nontender, no mass, no bruits EXTREMITIES: No cyanosis, 1+-2+ pretibial edema but legs rapped NEUROLOGIC: CN intact and symmetric to inspection. MUSCULOSKELETAL: Tone and strength symmetric. Objective Data Vital Signs Vital Signs: Vital Signs - 24 hr 03/20/19 22:00 03/21/19 06:00 03/21/19 09:03 Temperature 36.6 C 36.9 C Pulse Rate 68 88 88 Respiratory Rate 20 18 Blood Pressure 123/63 122/88 Pulse Oximetry 100 100 03/21/19 14:00 Temperature 36.6 C Pulse Rate 96 Respiratory Rate 16 Blood Pressure 120/67 Pulse Oximetry 98 Intake/Output Intake/Output: Intake & Output 03/18/19 03/19/19 03/20/19 03/21/19 23:59 23:59 23:59 23:59 Intake Total 976 4119 082 8620 Output Total 2300 1300 1350 900 Balance -1324 490 -410 260 Meds/Results Medications: Active Medications Generic Name Dose Route Start Last Admin Trade Name Freq PRN Reason Stop Dose Admin Acetaminophen 650 mg 03/14/19 18:01 03/21/19 19:01 Tylenol Tablet PO 650 mg Q4H PRN Administration Headache Albuterol 5 mg 03/14/19 18:01 Albuterol Sulf Neb 2.5mg/0.5ml INHALATION Q6HRT PRN Shortness Of Breath Dextrose 12.5 gm 03/15/19 00:38 Dextrose 50% Syringe IV PUSH PRN PRN Hypoglycemia Protocol Diltiazem HCl 120 mg 03/15/19 09:00 03/21/19 09:02 Cardizem Cd PO 120 mg QAM LIO Administration Docusate Sodium
[2019-03-21] MEDS: ENOXAPARIN 30 MG/0.3 ML SYRINGE SUB-Q (21:45)
[2019-03-21] MEDS: DOCUSATE SODIUM 100 MG CAPSULE PO (21:45)
[2019-03-21 21:55] VITALS: PULSE 72
[2019-03-21] MEDS: INSULIN GLARGINE (*BKC) 100 UNITS/ML 25 UNITS SUB-Q (21:58)
[2019-03-21 22:00] VITALS: BP 106/64; PULSE 87; RESP 16; TEMP 36.5; O2SAT 99
[2019-03-21 22:48] LABS: Glucose Point of Care 197 (65-105)
[2019-03-22 06:00] VITALS: BP 98/80; PULSE 97; RESP 16; TEMP 36.3; O2SAT 95
[2019-03-22 06:30] LABS: Basophils Percent Auto 0.5 % (0.2-1.2); Eosinophils Absolute Auto 0.3 K/mm3 (0-0.3); Eosinophils Percent Auto 3.4 % (0-4.4); Hematocrit 31.6 % (37.0-47.0); Hemoglobin 8.5 g/dL (12.0-15.0); Immature Granulocyte Absolute 0.03 K/mm3 (0.00-0.031); Immature Granulocyte Percent A 0.4 % (0-0.5); Lymphocytes Absolute Auto 1.15 K/mm3 (0.9-3.2); Lymphocytes Percent Auto 14.7 % (18.3-44.2); Mean Corpuscular HGB Conc 26.9 g/dl (32-36); Mean Corpuscular Hemoglobin 18.6 pg (26-34); Mean Corpuscular Volume 69.1 fl (80-100); Mean Platelet Volume 9.8 fl (7.4-10.4); Monocytes Absolute Auto 1.3 K/mm3 (0.1-0.6); Monocytes Percent Auto 15.9 % (2.6-8.5); Neutrophils Absolute Auto 5.1 K/mm3 (1.3-6.7); Neutrophils Percent Auto 65.1 % (45.5-73.1); Nucleated Red Blood Cells Perc 0.5 % (0.0-0.2); Platelet Count Result 265 k/mm3 (150-375); Red Blood Count 4.57 M/mm3 (4.2-5.4); Red Cell Distribution Width 27.8 % (11.5-14.5); White Blood Count 7.8 K/mm3 (4.5-10.0)
[2019-03-22 06:44] LABS: Blood Urea Nitrogen 37 mg/dL (7-17); Carbon Dioxide 25 mmol/L (22-30); Chloride 98 mmol/L (98-107); Estimated CRCL calculation 26 ml/min; Estimated Glomerular Filt Rate 31; Glucose 86 mg/dL (65-105); Potassium 3.6 mmol/L (3.4-5.0); Sodium 135 mmol/L (137-145)
[2019-03-22 07:15] LABS: Platelet Estimate Adequate (Adequate)
[2019-03-22 07:16] LABS: Anisocytosis 2+ (NORMAL); Large Platelets Present; Ovalocytes 2+ (NORMAL); Polychromasia 1+ (NORMAL); Target Cells 2+ (NORMAL)
[2019-03-22 07:17] LABS: Glucose Point of Care 170 (65-105)
[2019-03-22] MEDS: FUROSEMIDE 40 MG TABLET PO ×2 (08:50→17:44)
[2019-03-22 08:51] VITALS: PULSE 97
[2019-03-22] MEDS: LORATADINE 10 MG TABLET PO (08:51)
[2019-03-22] MEDS: FERROUS SULFATE 324 MG TABLET PO ×2 (08:51→17:44)
[2019-03-22] MEDS: DOCUSATE SODIUM 100 MG CAPSULE PO ×2 (08:51→21:21)
[2019-03-22] MEDS: METOPROLOL TARTRATE 50 MG TAB PO ×2 (08:51→21:23)
[2019-03-22] MEDS: POTASSIUM CHLORIDE 20 MEQ TABLET.ER 40 MEQ PO (08:51)
[2019-03-22] MEDS: EUCERIN CREAM 120 GM JAR 1 APPLIC TOPICAL (08:52)
[2019-03-22] MEDS: MAGNESIUM OXIDE 400 MG TABLET PO (08:52)
[2019-03-22] MEDS: THERAPEUTIC MULTIVITAMINS/MINERALS TAB (*BKC) 1 TABLET PO (08:52)
[2019-03-22] MEDS: SILVERGEL (ELTA) 45 ML 1 APPLIC TOPICAL (09:08)
--- NOTE | 2019-03-22 09:50 | PM.PNCARD ---
Progress Note: A&P Assessment and Plan (1) Hypokalemia: Code(s): E87.6 - Hypokalemia Status: Chronic Assessment and Plan: Potassium up to 6.0 yesterday. All potassium held yesterday. Down to 3.6 today. Potassium chloride 40 mEq b.i.d. restarted. Will closely monitor with her diuretic therapy. (2) Chronic kidney disease, stage IV (severe): Code(s): N18.4 - Chronic kidney disease, stage 4 (severe) Status: Acute Assessment and Plan: renal function is stable. Continue to monitor. Tolerating diuresis. (3) Severe obstructive sleep apnea: Code(s): G47.33 - Obstructive sleep apnea (adult) (pediatric) Status: Chronic Assessment and Plan: Uses oxygen at 1 L at night (4) Chronic atrial fibrillation: Code(s): I48.20 - Chronic atrial fibrillation, unspecified Status: Acute Assessment and Plan: Heart rate is reasonably controlled. Tolerating metoprolol at 50 mg p.o. b.i.d. and diltiazem. Colonoscopy: In the mid ascending colon a nonobstructing, large size, fungating, malignant appearing ulcerated 3 cm x 5 cm mass was noted. Stigmata of bleeding was noted from the mass. 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 She is aware that she has colon cancer. Dr Perales recommended oncologist and surgeon for discussion regarding options. The family, including Radha, agree she is not going to have surgery. She would be high risk for surgery. Eliquis has been discontinued. (5) Congestive heart failure: Qualifiers: Heart failure chronicity: chronic Heart failure type: diastolic Qualified Code(s): I50.32 - Chronic diastolic (congestive) heart failure Code(s): I50.9 - Heart failure, unspecified Status: Acute Assessment and Plan: Continue furosemide 40 mg b.i.d.. Continue metolazone 5 mg every 48 hours. Potassium supplementation as above. Monitor renal function and electrolytes closely (6) Chronic anticoagulation: Code(s): Z79.01 - long term care pharmacist (current) use of anticoagulants Status: Acute Assessment and Plan: As above. Additional Plan Plan discussed with Dr Tracy Driver 03/22/2019 Subjective Date/time seen: 03/22/19 09:50 Interval history: Follow up for: Worsening edema, shortness of breath, anemia, CKD, chronic atrial fibrillation Date of service: 03/22/2019 Subjective: Feeling pretty well this morning. Only has abdominal discomfort when coughs. No other pain. No shortness of breath or lightheadedness. Daughter at bedside. Aware she has colon cancer. Review of Systems Constitutional: Constitutional: Reports fatigue, Denies headache(s) and Reports weakness Eyes: Eyes: Denies blurry vision ENT: Denies headache(s), Denies lip swelling and Denies neck pain Cardiovascular: Cardiovascular: Denies chest pain with activity, Reports leg edema, Denies lightheadedness and Reports dyspnea on exertion (At baseline) Respiratory: Respiratory: Reports cough (Nonproductive), Denies hemoptysis, Reports dyspnea on exertion (At baseline) and Denies wheezing Gastrointestinal: Gastrointestinal: Reports abdominal pain (Epigastric area from coughing), Denies nausea and Denies hematemesis Genitourinary: Genitourinary: Denies hematuria Musculoskeletal: Musculoskeletal: Denies neck pain Integumentary/Breasts: Skin/Breast: Reports wounds Neurologic: Denies headache(s) and Reports weakness Psychiatric: Psychiatric: Denies anxiety Endocrine: Endocrine: Reports fatigue and Denies flushing Hematologic/Lymphatic: Hematologic/Lymphatic: Denies easy bleeding Allergic/Immunologic: Allergic/Immunologic: Denies lip swelling and Denies wheezing Exam Const: General: cooperative and no acute distress Orientation/consciousness:
--- NOTE | 2019-03-22 10:05 | WPDGIPROGNO ---
Progress Note: A&P Additional Plan Patient appears less short of breath. She sleeps in a chair to continue to breathe easily. She denies abdominal pain. No signs of GI bleeding. Physical exam reveals her to be alert and comfortable. Vital signs stable. Lungs reveal a few rales. Abdomen is soft and nontender. Extremities with significant peripheral edema however. Pathology confirms adenocarcinoma of right colon mass. Impression 1. Adenocarcinoma of right colon. Surgical resection should be considered. Patient's congestive heart failure may make her high risk. 2. Congestive heart failure 3. Iron deficiency anemia. Plan is for surgery and Oncology opinion for therapy of adenocarcinoma of colon. Subjective Date/time seen: 03/22/19 10:05 Objective Data Vital Signs Vital Signs: Vital Signs - 24 hr 03/21/19 14:00 03/21/19 21:55 03/21/19 22:00 Temperature 36.6 C 36.5 C Pulse Rate 96 72 87 Respiratory Rate 16 16 Blood Pressure 120/67 106/64 Pulse Oximetry 98 99 03/22/19 06:00 03/22/19 08:51 Temperature 36.3 C L Pulse Rate 97 97 Respiratory Rate 16 Blood Pressure 98/80 L Pulse Oximetry 95 Intake/Output Intake/Output: Intake & Output 03/19/19 03/20/19 03/21/19 03/22/19 23:59 23:59 23:59 23:59 Intake Total 5569 399 2726 420 Output Total 1300 1350 900 900 Balance 490 -410 260 -480 Meds/Results Medications: Active Medications Generic Name Dose Route Start Last Admin Trade Name Freq PRN Reason Stop Dose Admin Acetaminophen 650 mg 03/14/19 18:01 03/21/19 19:01 Tylenol Tablet PO 650 mg Q4H PRN Administration Headache Albuterol 5 mg 03/14/19 18:01 Albuterol Sulf Neb 2.5mg/0.5ml INHALATION Q6HRT PRN Shortness Of Breath Dextrose 12.5 gm 03/15/19 00:38 Dextrose 50% Syringe IV PUSH PRN PRN Hypoglycemia Protocol Diltiazem HCl 120 mg 03/15/19 09:00 03/22/19 08:52 Cardizem Cd PO 120 mg QAM LIO Administration Docusate Sodium 100 mg 03/14/19 21:00 03/22/19 08:51 Colace Capsule PO 100 mg Q12HR LIO Administration Enoxaparin Sodium 30 mg 03/21/19 21:00 03/21/19 21:45 Lovenox SUB-Q 30 mg HS LIO Administration Ferrous Sulfate 324 mg 03/17/19 17:00 03/22/19 08:51 Ferrous Sulfate PO 324 mg BIDWM LIO Administration Furosemide 40 mg 03/20/19 17:15 03/22/19 08:50 Lasix Tablet PO 40 mg BID LIO Administration Glucagon 1 mg 03/15/19 00:38 Glucagon For Inj IM PRN PRN Hypoglycemia Protocol Glucose 15 gm 03/15/19 00:38 Glutose 15 PO PRN PRN Hypoglycemia Protocol Guaifenesin 200 mg 03/14/19 18:01 03/21/19 19:02 Guaifenesin Liq PO 200 mg Q4H PRN Administration Cough Dextrose 1,000 mls @ 100 mls/hr 03/15/19 00:38 Dextrose 5% 1,000 Ml IVPB PRN PRN Hypoglycemia Protocol Iron Sucrose 300 mg/ Sodium 115 mls @ 76.667 mls/hr 03/22/19 09:00 Chloride IVPB 03/22/19 10:29 ONCE ONE Insulin Aspart 3 - 6 units 03/15/19 08:00 03/22/19 08:50 Novolog SUB-Q Not Given TIDWM [facility] Protocol Insulin Glargine 25 units 03/14/19 21:00 03/21/19 21:58 Lantus SUB-Q 25 units HS LIO Administration Ipratropium [place] 0.5 mg 03/14/19 18:01 Atrovent Neb INHALATION Q6HRT PRN Shortness Of Breath Lidocaine HCl 0.3 ml 03/17/19 08:08 Xylocaine 2% Local Inj INTRADERM ONCE PRN to numb area Loratadine 10 mg 03/15/19 09:00 03/22/19 08:51 Claritin PO 10 mg DAILY LIO Administration Magnesium Oxide 400 mg 03/15/19 09:00 03/22/19 08:52 Mag-Ox PO 400 mg DAILY LIO Administration Metolazone 5 mg 03/21/19 08:00 03/21/19 07:43 Zaroxolyn PO 5 mg Q48H LIO Administration Metoprolol Tartrate 50 mg 03/15/19 21:00 03/22/19 08:51 Lopressor PO 50 mg Q12HR LIO Administration Multi-Ingred Cream/Lotion/Oil/Oint 1 applic 03/15/19 09:00 03/22/19 08:5
[2019-03-22] MEDS: GUAIFENESIN 200 MG/10 ML UDC PO ×2 (10:34→22:52)
[2019-03-22] MEDS: TOLNAFTATE 1% POWDER 45 GM BTL 1 APPLIC TOPICAL ×2 (10:34→21:26)
--- NOTE | 2019-03-22 11:40 | PM.CNGS ---
Assessment and Plan Assessment and plan (1) Primary adenocarcinoma of ascending colon: Code(s): C18.2 - Malignant neoplasm of ascending colon Status: Acute Assessment and Plan: The patient has a newly found malignant-appearing ulcerative colonic mass in the mid ascending colon found on a Colonoscopy by Dr. Perales on 03/17/19. Pathology showed evidence of moderately differentiated colonic adenocarcinoma with ulceration. This is likely the source of her anemia. CEA is 3.6. I do not see any recent abdominal imaging to evaluate for evidence of metastatic disease. The patient and her daughter are very adamant about not wanting any surgery. I had a thorough discussion with the patient and her daughter regarding what would be offered for surgical intervention and that she may continue to have problems with the anemia and congestive heart failure without further treatment. I also discussed the possibilities of progression of this colonic mass and what may come of that, including worsening bleeding, obstruction, or perforation, and if these occur they could ultimately lead to . I also discussed the possibility of further workup of this mass, including a CT scan of the abdomen and pelvis to further look for any evidence of metastatic disease and they declined this as well. After a lengthy discussion, the patient and her daughter still verbalized that the patient does not want any surgery or further testing. I then discussed the possibility of Hospice and they were open to considering this option. I did discuss all of this with Dr. Mclean who will also see the patient today to verify their wishes as well. Since the patient and her family do not want any surgical intervention, we will sign off at this point. If there are any changes in their wishes for surgery or we are needed for any other surgical matters, please let us know. Thank you for allowing me to see the patient in consultation. (2) Anemia: Qualifiers: Anemia type: unspecified type Qualified Code(s): D64.9 - Anemia, unspecified Code(s): D64.9 - Anemia, unspecified Status: Acute (3) Chronic atrial fibrillation: Code(s): I48.20 - Chronic atrial fibrillation, unspecified Status: Acute (4) Congestive heart failure: Qualifiers: Heart failure chronicity: chronic Heart failure type: diastolic Qualified Code(s): I50.32 - Chronic diastolic (congestive) heart failure Code(s): I50.9 - Heart failure, unspecified Status: Acute Assessment and Plan: Cardiology following and managing. (5) Type 2 diabetes mellitus with hyperglycemia, with long-term current use of insulin: Code(s): E11.65 - Type 2 diabetes mellitus with hyperglycemia; Z79.4 - USP (current) use of insulin Status: Acute (6) Chronic anticoagulation: Code(s): Z79.01 - USP (current) use of anticoagulants Status: Acute Assessment and Plan: [facility] Dee is currently on hold due to her anemia and GI bleed. (7) Chronic kidney disease, stage IV (severe): Code(s): N18.4 - Chronic kidney disease, stage 4 (severe) Status: Acute Assessment and Plan: Nephrology following and managing. History of Present Illness Consult details Consult date: 03/22/19 Reason for consult: other (Mid ascending colon mass found on colonoscopy with pathology showing adenocarcinoma.) Requesting physician: Jesse Perales MD Narrative: This is an 83-year-old female with history of right-sided heart failure, chronic atrial fibrillation on chronic anticoagulation, valvular disease, chronic kidney disease, diabetes, and hypertension, who was recently discharged from this hospital to [facility] for rehab. In [facility], she was not improving and was having worsening leg swelling and becoming more anemic. She also was found to have a positive stool occult and her hemoglobin was as low as 6.5. She was admitted for further workup of the previously mentioned
[2019-03-22 11:50] LABS: Glucose Point of Care 99 (65-105)
[2019-03-22] MEDS: POTASSIUM CHLORIDE 20 MEQ TABLET 40 MEQ PO (11:57)
[2019-03-22] MEDS: ACETAMINOPHEN 325 MG TABLET 650 MG PO ×2 (13:10→22:51)
--- NOTE | 2019-03-22 13:49 | PCOTNOTE ---
Attempted to see patient this pm, however patient was sleeping upon entering. Attempted to wake patient, however patient was not able to be aroused. Pt moaned and kept eyes closed. Pt not seen for this reason.
[2019-03-22 14:00] VITALS: BP 112/65; PULSE 89; RESP 20; TEMP 36.4; O2SAT 98
--- NOTE | 2019-03-22 15:46 | PCPTNOTE ---
Attempted to see patient for PT, however patient had difficulty waking up enough to participate in therapy.
--- NOTE | 2019-03-22 16:52 | P.PNIM_ITS ---
Progress Note: A&P Assessment and Plan (1) Anemia: Qualifiers: Anemia type: unspecified type Qualified Code(s): D64.9 - Anemia, unspecified Code(s): D64.9 - Anemia, unspecified Status: Acute Assessment and Plan: * heme + stool * iron panel c/w iron deficiency start IV fe 300 mg 03/21 and 03/22 * 2/ antibody delaying transfusion * 03/16 hgb 8.1; endoscopic evaluation 03/17 * 03/17 hgb 8.4; endoscopy with colon mass * 03/18 hgb 7.9 * 03/19 hgb 8.0, path pending on bx * 03/20 hgb 8.4, path from colon bx st * 03/21 hgb 8.7 and path report adenoca transverse colon * 03/22 hbg 8.5 (2) Congestive heart failure: Qualifiers: Heart failure type: diastolic Heart failure chronicity: chronic Qualified Code(s): I50.32 - Chronic diastolic (congestive) heart failure Code(s): I50.9 - Heart failure, unspecified Status: Acute Assessment and Plan: * Transitioned back to PO metalozone and PO furosemide recheck venous doppler today still negative (3) Atrial fibrillation: Qualifiers: Atrial fibrillation type: permanent Qualified Code(s): I48.21 - Permanent atrial fibrillation Code(s): I48.91 - Unspecified atrial fibrillation Status: Acute Assessment and Plan: * Eliquis and ASA on hold. Continue with metoprolol. (4) Type 2 diabetes mellitus with hyperglycemia, with long-term current use of insulin: Code(s): E11.65 - Type 2 diabetes mellitus with hyperglycemia; Z79.4 - custodial (current) use of insulin Status: Acute Assessment and Plan: * Continue with basal and sliding scale insulin * 03/17 FBS 99 after basal insulin held * FBS today 86 (5) Hypokalemia: Code(s): E87.6 - Hypokalemia Status: Chronic Assessment and Plan: * Replace mag and K iv and po * 2/7 AM furosemide and metolazone held * 03/18 3.2, increased to 40mEq PO QID, IV mag x 1gm * 03/19 3.9, mag 1.9, 03/20 4.6 * up to 6.0 today so kcl deceded and moniter and down to 3.6 today so restart oral kcl (6) DVT prophylaxis: Code(s): Z29.9 - Encounter for prophylactic measures, unspecified Status: Acute Assessment and Plan: start low dose lovenox 30 qd Subjective Date/time seen: 03/22/19 16:52 Interval history: date of visit 03/22. Sore in back from therapy, then sitting in chair. Better with movement. Ate breakfast well. No cp, less sob, less swelling. No gi/gu c/o. No bleeding. edema not much change Exam Narrative: Exam Narrative: Bp 120/66 p 96 sat 98% ra HEENT: EOMI, PERR NECK: No JVD CHEST: Decr BS at bases HEART: NL S1/S2, regular, no murmur ABDOMEN: BS+, soft, nontender, no mass, no bruits EXTREMITIES: No cyanosis, 1+-2+ pretibial edema but legs rapped NEUROLOGIC: CN intact and symmetric to inspection. MUSCULOSKELETAL: Tone and strength symmetric. Objective Data Vital Signs Vital Signs: Vital Signs - 24 hr 03/21/19 21:55 03/21/19 22:00 03/22/19 06:00 Temperature 36.5 C 36.3 C L Pulse Rate 72 87 97 Respiratory Rate 16 16 Blood Pressure 106/64 98/80 L Pulse Oximetry 99 95 03/22/19 08:51 03/22/19 14:00 Temperature 36.4 C Pulse Rate 97 89 Respiratory Rate 20 Blood Pressure 112/65 Pulse Oximetry 98 Intake/Output Intake/Output: Intake & Output 03/19/19 03/20/19 03/21/19 03/22/19 23:59 23:59
--- NOTE | 2019-03-22 16:52 | PM.IMPN ---
Progress Note: A&P Assessment and Plan (1) Anemia: Qualifiers: Anemia type: unspecified type Qualified Code(s): D64.9 - Anemia, unspecified Code(s): D64.9 - Anemia, unspecified Status: Acute Assessment and Plan: heme + stool iron panel c/w iron deficiency start IV fe 300 mg 03/21 and 03/22 03/15 antibody delaying transfusion 03/16 hgb 8.1; endoscopic evaluation 03/17 03/17 hgb 8.4; endoscopy with colon mass 03/18 hgb 7.9 03/19 hgb 8.0, path pending on bx 03/20 hgb 8.4, path from colon bx st 03/21 hgb 8.7 and path report adenoca transverse colon 03/22 hbg 8.5 (2) Congestive heart failure: Qualifiers: Heart failure type: diastolic Heart failure chronicity: chronic Qualified Code(s): I50.32 - Chronic diastolic (congestive) heart failure Code(s): I50.9 - Heart failure, unspecified Status: Acute Assessment and Plan: Transitioned back to PO metalozone and PO furosemide recheck venous doppler today still negative (3) Atrial fibrillation: Qualifiers: Atrial fibrillation type: permanent Qualified Code(s): I48.21 - Permanent atrial fibrillation Code(s): I48.91 - Unspecified atrial fibrillation Status: Acute Assessment and Plan: Eliquis and ASA on hold. Continue with metoprolol. 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 of insulin Status: Acute Assessment and Plan: Continue with basal and sliding scale insulin 03/17 FBS 99 after basal insulin held FBS today 86 (5) Hypokalemia: Code(s): E87.6 - Hypokalemia Status: Chronic Assessment and Plan: Replace mag and K iv and po 2 AM furosemide and metolazone held 03/18 3.2, increased to 40mEq PO QID, IV mag x 1gm 03/19 3.9, mag 1.9, 03/20 4.6 up to 6.0 today so kcl deceded and moniter and down to 3.6 today so restart oral kcl (6) DVT prophylaxis: Code(s): Z29.9 - Encounter for prophylactic measures, unspecified Status: Acute Assessment and Plan: start low dose lovenox 30 qd Subjective Date/time seen: 03/22/19 16:52 Interval history: date of visit 03/22. Sore in back from therapy, then sitting in chair. Better with movement. Ate breakfast well. No cp, less sob, less swelling. No gi/gu c/o. No bleeding. edema not much change Exam Narrative: Exam Narrative: Bp 120/66 p 96 sat 98% ra HEENT: EOMI, PERR NECK: No JVD CHEST: Decr BS at bases HEART: NL S1/S2, regular, no murmur ABDOMEN: BS+, soft, nontender, no mass, no bruits EXTREMITIES: No cyanosis, 1+-2+ pretibial edema but legs rapped NEUROLOGIC: CN intact and symmetric to inspection. MUSCULOSKELETAL: Tone and strength symmetric. Objective Data Vital Signs Vital Signs: Vital Signs - 24 hr 03/21/19 21:55 03/21/19 22:00 03/22/19 06:00 Temperature 36.5 C 36.3 C L Pulse Rate 72 87 97 Respiratory Rate 16 16 Blood Pressure 106/64 98/80 L Pulse Oximetry 99 95 03/22/19 08:51 03/22/19 14:00 Temperature 36.4 C Pulse Rate 97 89 Respiratory Rate 20 Blood Pressure 112/65 Pulse Oximetry 98 Intake/Output Intake/Output: Intake & Output 03/19/19 03/20/19 03/21/19 03/22/19 23:59 23:59 23:59 23:59 Intake Total 0078 648 3749 535 Output Total 1300 1350 900 900 Balance 490 -410 260 -365 Meds/Results Medications: Active Medications Generic Name Dose Route Start Last Admin Trade Name Freq PRN Reason Stop Dose Admin Acetaminophen 650 mg 03/14/19 18:01 03/22/19 13:10 Tylenol Tablet PO 650 mg Q4H PRN Administration Headache Albuterol 5 mg 03/14/19 18:01 Albuterol Sulf Neb 2.5mg/0.5ml INHALATION Q6HRT PRN Shortness Of Breath Dextrose 12.5 gm 03/15/19 00:38 Dextrose 50% Syringe IV PUSH PRN PRN Hypoglycemia Protocol Diltiazem HCl 120 mg 03/15/19 09:00 03/11
--- NOTE | 2019-03-22 16:56 | PM.PNGS ---
Progress Note: A&P Assessment and Plan (1) Primary adenocarcinoma of ascending colon: Code(s): C18.2 - Malignant neoplasm of ascending colon Status: Chronic Assessment and Plan: I agree with the consultation dictated byDEBORAH Lawrence. I discussed the colonoscopy findings and the possibility of surgery with the patient and her daughter. They reiterated to me that they do not wish to proceed with any surgical procedures. They did not have any questions and felt that the previous discussion was quite adequate. They will notify us if they change their mind and wish to have surgery reinvestigated. We will sign off. (2) Atrial fibrillation with slow ventricular response: Code(s): I48.91 - Unspecified atrial fibrillation Status: Chronic (3) Chronic kidney disease, stage IV (severe): Code(s): N18.4 - Chronic kidney disease, stage 4 (severe) Status: Chronic (4) Severe obstructive sleep apnea: Code(s): G47.33 - Obstructive sleep apnea (adult) (pediatric) Status: Chronic (5) Atrial fibrillation: Qualifiers: Atrial fibrillation type: permanent Qualified Code(s): I48.21 - Permanent atrial fibrillation Code(s): I48.91 - Unspecified atrial fibrillation Status: Chronic (6) Congestive heart failure: Qualifiers: Heart failure type: diastolic Heart failure chronicity: chronic Qualified Code(s): I50.32 - Chronic diastolic (congestive) heart failure Code(s): I50.9 - Heart failure, unspecified Status: Chronic (7) Chronic anticoagulation: Code(s): 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 Colonoscopy showed an ascending colon tumor. She has multiple medical problems including iron deficiency anemia, congestive heart failure, atrial fibrillation, CKD, diabetes, DVT sleep apnea and venous stasis disease. Exam GI: Inspection: non-distended and obesity ( Large protuberant abdomen) GI Palp: Yes Soft to palpation and No Tenderness to palpation present (GI) Auscultation: normal bowel sounds Extrem: General: edema bilateral ( Bilateral brawny edema consistent with venous stasis disease.) Objective Data Vital Signs Vital Signs: Vital Signs - 24 hr 03/21/19 21:55 03/21/19 22:00 03/22/19 06:00 Temperature 36.5 C 36.3 C L Pulse Rate 72 87 97 Respiratory Rate 16 16 Blood Pressure 106/64 98/80 L Pulse Oximetry 99 95 03/22/19 08:51 03/22/19 14:00 Temperature 36.4 C Pulse Rate 97 89 Respiratory Rate 20 Blood Pressure 112/65 Pulse Oximetry 98 Intake/Output Intake/Output: Intake & Output 03/19/19 03/20/19 03/21/19 03/22/19 23:59 23:59 23:59 23:59 Intake Total 4131 954 7544 535 Output Total 1300 1350 900 900 Balance 490 -410 260 -365 Meds/Results Medications: Active Medications Generic Name Dose Route Start Last Admin Trade Name Freq PRN Reason Stop Dose Admin Acetaminophen 650 mg 03/14/19 18:01 03/22/19 13:10 Tylenol Tablet PO 650 mg Q4H PRN Administration Headache Albuterol 5 mg 03/14/19 18:01 Albuterol Sulf Neb 2.5mg/0.5ml INHALATION Q6HRT PRN Shortness Of Breath Dextrose 12.5 gm 03/15/19 00:38 Dextrose 50% Syringe IV PUSH PRN PRN Hypoglycemia Protocol Diltiazem HCl 120 mg 03/15/19 09:00 03/22/19 08:52 Cardizem Cd PO 120 mg QAM LIO Administration Docusate Sodium 100 mg 03/14/19 21:00 03/22/19 08:51 Colace Capsule PO 100 mg Q12HR LIO Administration Enoxaparin Sodium 30 mg 03/21/19 21:00 03/21/19 21:45 Lovenox SUB-Q 30 mg HS LIO Administration Ferrous Sulfa
[2019-03-22 18:24] LABS: Glucose Point of Care 122 (65-105)
[2019-03-22] MEDS: ENOXAPARIN 30 MG/0.3 ML SYRINGE SUB-Q (21:21)
[2019-03-22 21:23] VITALS: PULSE 82
[2019-03-22] MEDS: INSULIN GLARGINE (*BKC) 100 UNITS/ML 25 UNITS SUB-Q (21:39)
[2019-03-22 22:00] VITALS: BP 118/68; PULSE 64; RESP 18; TEMP 36.4; O2SAT 98
[2019-03-22 22:08] LABS: Glucose Point of Care 161 (65-105)
--- NOTE | 2019-03-23 03:47 | CONS_ITS ---
DATE OF CONSULTATION: 03/22/2019 REASON FOR CONSULTATION: Colon cancer. HISTORY OF PRESENTING ILLNESS: This is an 84-year-old obese female, who is not a good historian with multiple comorbidities including right-sided congestive heart failure, valvular heart disease, and chronic kidney disease, came into the ER with increasing shortness of breath and found to have severe anemia with congestive heart failure. Her hemoglobin was found to be 6.8. Her Hemoccult stool was positive. On March 17, the patient had colonoscopy done that showed nonobstructing large size fungating malignant-appearing mass in the mid ascending colon and biopsies were taken. Pathology came back positive, moderately differentiated adenocarcinoma of colon with ulceration. Surgery Service was consulted and the patient and family decided not to pursue with surgical intervention given her other comorbidities. REVIEW OF SYSTEMS: Twelve-point review of systems reviewed and as per HPI, otherwise negative. PAST MEDICAL HISTORY: Congestive heart failure, GERD, chronic kidney disease, anemia, sleep apnea, TIA, hypertension, DVT, and diabetes. PAST SURGICAL HISTORY: Hysterectomy and cholecystectomy. FAMILY HISTORY: Noncontributory. SOCIAL HISTORY: The patient is a [place] resident. She is a . Denies any history of drinking and smoking. HOME MEDICATIONS: Reviewed. ALLERGIES: REVIEWED. PHYSICAL EXAMINATION: GENERAL: This patient is an elderly, obese female, alert and oriented. VITAL SIGNS: Per nursing note. HEENT: Normocephalic, atraumatic. Clear oropharynx. LUNGS: Clear to auscultation bilaterally. CARDIOVASCULAR: Regular rate and rhythm. No murmur. ABDOMEN: Soft, nontender, nondistended. Bowel sounds are positive. No hepatosplenomegaly. EXTREMITIES: No edema. NEUROLOGIC: Grossly intact. LABORATORY DATA: WBC 7.8, hemoglobin 8.5, MCV 69.1, platelets 265,000, and neutrophils 65%. Creatinine 1.6. Calcium 9.0. ASSESSMENT AND PLAN: 1. Moderately differentiated adenocarcinoma of colon status post colonoscopy and biopsy. I have discussed this case with the patient in person and the daughter on the phone today. The patient's family does not want to pursue with any further investigation and imaging studies at this time. I have recommended CT scan for complete staging for this newly diagnosed colon cancer. Based on the patient's family requests, I will not order any imaging studies at this time unless they decided to pursue for further investigation for workup and management. 2. Microcytic anemia. This is secondary to iron deficiency. Iron studies on March 14 showed iron level of 11 with iron saturation of 3%. Vitamin B12 level was normal at 859. The patient is already on oral iron twice a day. I will give her IV iron infusion due to severe anemia. I have answered all the questions to the patient and the family satisfaction. HAYDER ZHAO M.D. ACTIVITIES THERAPIST ACTIVITIES THERAPIST D Elana MT: Amari
[2019-03-23 06:00] VITALS: BP 116/88; PULSE 100; RESP 18; TEMP 36.9; O2SAT 90
[2019-03-23 06:23] LABS: Basophils Percent Auto 0.4 % (0.2-1.2); Eosinophils Absolute Auto 0.4 K/mm3 (0-0.3); Eosinophils Percent Auto 5.5 % (0-4.4); Hematocrit 29.5 % (37.0-47.0); Hemoglobin 8.1 g/dL (12.0-15.0); Immature Granulocyte Absolute 0.03 K/mm3 (0.00-0.031); Immature Granulocyte Percent A 0.4 % (0-0.5); Lymphocytes Percent Auto 24.5 % (18.3-44.2); Mean Corpuscular HGB Conc 27.5 g/dl (32-36); Mean Corpuscular Hemoglobin 18.6 pg (26-34); Mean Corpuscular Volume 67.8 fl (80-100); Mean Platelet Volume 9.5 fl (7.4-10.4); Monocytes Absolute Auto 1.2 K/mm3 (0.1-0.6); Neutrophils Absolute Auto 4.1 K/mm3 (1.3-6.7); Neutrophils Percent Auto 53.2 % (45.5-73.1); Nucleated Red Blood Cells Perc 0.5 % (0.0-0.2); Platelet Count Result 230 k/mm3 (150-375); Red Blood Count 4.35 M/mm3 (4.2-5.4); White Blood Count 7.8 K/mm3 (4.5-10.0)
[2019-03-23 06:36] LABS: Blood Urea Nitrogen 33 mg/dL (7-17); Calcium 8.4 mg/dL (8.4-10.2); Carbon Dioxide 27 mmol/L (22-30); Chloride 100 mmol/L (98-107); Estimated CRCL calculation 28 ml/min; Estimated Glomerular Filt Rate 33; Glucose 67 mg/dL (65-105); Potassium 2.9 mmol/L (3.4-5.0); Sodium 137 mmol/L (137-145)
[2019-03-23 07:14] LABS: Platelet Estimate Adequate (Adequate)
[2019-03-23 07:15] LABS: Anisocytosis 2+ (NORMAL); Hypochromasia 3+ (NORMAL); Polychromasia 1+ (NORMAL)
[2019-03-23 07:51] LABS: Glucose Point of Care 52 (65-105)
[2019-03-23 08:32] LABS: Glucose Point of Care 67 (65-105)
[2019-03-23] MEDS: EUCERIN CREAM 120 GM JAR 1 APPLIC TOPICAL (09:17)
[2019-03-23] MEDS: THERAPEUTIC MULTIVITAMINS/MINERALS TAB (*BKC) 1 TABLET PO (09:18)
[2019-03-23] MEDS: LORATADINE 10 MG TABLET PO (09:18)
[2019-03-23 09:19] VITALS: PULSE 100
[2019-03-23] MEDS: METOPROLOL TARTRATE 50 MG TAB PO ×2 (09:19→21:36)
[2019-03-23] MEDS: metOLazone 5 MG TABLET PO (09:19)
[2019-03-23] MEDS: MAGNESIUM OXIDE 400 MG TABLET PO (09:19)
[2019-03-23] MEDS: DOCUSATE SODIUM 100 MG CAPSULE PO ×2 (09:19→21:36)
[2019-03-23] MEDS: FUROSEMIDE 40 MG TABLET PO ×2 (09:19→18:13)
[2019-03-23] MEDS: FERROUS SULFATE 324 MG TABLET PO ×2 (09:19→18:13)
[2019-03-23] MEDS: SILVERGEL (ELTA) 45 ML 1 APPLIC TOPICAL (09:23)
[2019-03-23] MEDS: TOLNAFTATE 1% POWDER 45 GM BTL 1 APPLIC TOPICAL ×2 (09:23→21:44)
[2019-03-23] MEDS: POTASSIUM CHLORIDE 10 MEQ TABLET.ER 40 MEQ PO ×3 (10:45→18:13)
--- NOTE | 2019-03-23 10:47 | WPDGIPROGNO ---
Progress Note: A&P Additional Plan Patient alert and comfortable this morning. Tolerating diet. No signs of active GI blood loss. She denies abdominal pain. Physical exam reveals abdomen to be benign. Significant pedal edema remains. \impression 1. Adenocarcinoma of the right colon. Patient has had opportunity to talk to both Oncology and surgery. At the present time she prefers no treatment for her tumor. 2. Congestive heart failure. 3. Iron deficiency anemia. Plan is for discharge when appropriate per primary care service. She will follow up with primary care after discharge. No further GI investigation plan. Subjective Date/time seen: 03/23/19 10:47 Objective Data Vital Signs Vital Signs: Vital Signs - 24 hr 03/22/19 14:00 03/22/19 21:23 03/22/19 22:00 Temperature 36.4 C 36.4 C Pulse Rate 89 82 64 Respiratory Rate 20 18 Blood Pressure 112/65 118/68 Pulse Oximetry 98 98 03/23/19 06:00 03/23/19 09:19 Temperature 36.9 C Pulse Rate 100 100 Respiratory Rate 18 Blood Pressure 116/88 Pulse Oximetry 90 Intake/Output Intake/Output: Intake & Output 03/20/19 03/21/19 03/22/19 03/23/19 23:59 23:59 23:59 23:59 Intake Total 940 1160 1320 570 Output Total 1255 130 2487 1000 Balance -410 260 180 -430 Meds/Results Medications: Active Medications Generic Name Dose Route Start Last Admin Trade Name Freq PRN Reason Stop Dose Admin Acetaminophen 650 mg 03/14/19 18:01 03/22/19 22:51 Tylenol Tablet PO 650 mg Q4H PRN Administration Headache Albuterol 5 mg 03/14/19 18:01 Albuterol Sulf Neb 2.5mg/0.5ml INHALATION Q6HRT PRN Shortness Of Breath Dextrose 12.5 gm 03/15/19 00:38 Dextrose 50% Syringe IV PUSH PRN PRN Hypoglycemia Protocol Diltiazem HCl 120 mg 03/15/19 09:00 03/23/19 09:18 Cardizem Cd PO 120 mg QAM LIO Administration Docusate Sodium 100 mg 03/14/19 21:00 03/23/19 09:19 Colace Capsule PO 100 mg Q12HR LIO Administration Enoxaparin Sodium 30 mg 03/21/19 21:00 03/22/19 21:21 Lovenox SUB-Q 30 mg HS LIO Administration Ferrous Sulfate 324 mg 03/17/19 17:00 03/23/19 09:19 Ferrous Sulfate PO 324 mg BIDWM LIO Administration Furosemide 40 mg 03/20/19 17:15 03/23/19 09:19 Lasix Tablet PO 40 mg BID LIO Administration Glucagon 1 mg 03/15/19 00:38 Glucagon For Inj IM PRN PRN Hypoglycemia Protocol Glucose 15 gm 03/15/19 00:38 Glutose 15 PO PRN PRN Hypoglycemia Protocol Guaifenesin 200 mg 03/14/19 18:01 03/22/19 22:52 Guaifenesin Liq PO 200 mg Q4H PRN Administration Cough Dextrose 1,000 mls @ 100 mls/hr 03/15/19 00:38 Dextrose 5% 1,000 Ml IVPB PRN PRN Hypoglycemia Protocol Iron Sucrose 300 mg/ Sodium 115 mls @ 76.667 mls/hr 03/23/19 09:00 03/23/19 09:19 Chloride IVPB 03/26/19 09:01 76.7 mls/hr QAM [facility] Administration Insulin Aspart 3 - 6 units 03/15/19 08:00 03/23/19 09:03 Novolog SUB-Q Not Given TIDWM [facility] Protocol Insulin Glargine 25 units 03/14/19 21:00 03/22/19 21:39 Lantus SUB-Q 25 units HS LIO Administration Ipratropium [place] 0.5 mg 03/14/19 18:01 Atrovent Neb INHALATION Q6HRT PRN Shortness Of Breath Lidocaine HCl 0.3 ml 03/17/19 08:08 Xylocaine 2% Local Inj INTRADERM ONCE PRN to numb area Loratadine 10 mg 03/15/19 09:00 03/23/19 09:18 Claritin PO 10 mg DAILY LIO Administration Magnesium Oxide 400 mg 03/15/19 09:00 03/23/19 09:19 Mag-Ox PO 400 mg DAILY LIO Administration Metolazone 5 mg 03/21/19 08:00 03/23/19 09:19 Zaroxolyn PO 5 mg Q48H LIO Administration Metoprolol Tartrate 50 mg 03/15/19 21:00 03/23/19 09:19 Lopressor PO 50 mg Q12HR LIO Administration Multi-Ingred Cream/Lotion/Oil/Oint 1 applic 03/15/19 09:00 03/23/19 09:17 Minerin Creme TOPICAL 1 applic AURELIANO
[2019-03-23 11:12] LABS: Glucose Point of Care 115 (65-105)
[2019-03-23 13:40] LABS: Glucose Point of Care 149 (65-105)
[2019-03-23 14:00] VITALS: BP 131/79; PULSE 80; RESP 16; TEMP 36.7; O2SAT 97
--- NOTE | 2019-03-23 15:05 | PM.PNCARD ---
Progress Note: A&P Assessment and Plan (1) Hypokalemia: Code(s): E87.6 - Hypokalemia Status: Chronic Assessment and Plan: Potassium 2.9 today. Restarted on 40 mEq t.i.d.. Will closely monitor with her diuretic therapy. (2) Chronic kidney disease, stage IV (severe): Code(s): N18.4 - Chronic kidney disease, stage 4 (severe) Status: Chronic Assessment and Plan: renal function is stable. Continue to monitor. Tolerating diuresis. (3) Severe obstructive sleep apnea: Code(s): G47.33 - Obstructive sleep apnea (adult) (pediatric) Status: Chronic Assessment and Plan: Uses oxygen at 1 L at night (4) Chronic atrial fibrillation: Code(s): I48.20 - Chronic atrial fibrillation, unspecified Status: Acute Assessment and Plan: Heart rate is reasonably controlled. Tolerating metoprolol at 50 mg p.o. b.i.d. and diltiazem CD 120 mg daily.. Eliquis has been discontinued due to her new diagnosis of colon cancer. (5) Congestive heart failure: Qualifiers: Heart failure type: diastolic Heart failure chronicity: chronic Qualified Code(s): I50.32 - Chronic diastolic (congestive) heart failure Code(s): I50.9 - Heart failure, unspecified Status: Chronic Assessment and Plan: Continue furosemide 40 mg b.i.d.. Continue metolazone 5 mg every 48 hours. Potassium supplementation as above. Monitor renal function and electrolytes closely (6) Chronic anticoagulation: Code(s): Z79.01 - [facility] (current) use of anticoagulants Status: Acute Assessment and Plan: As above. (7) Primary adenocarcinoma of ascending colon: Code(s): C18.2 - Malignant neoplasm of ascending colon Status: Chronic Assessment and Plan: She has decided not to proceed with any further treatment of her colon cancer. She stated she is just too old for all that nonsense. She also realizes that her kidney function will continue to decline and diuretics may not continue to work. She just wants to be kept comfortable. When asked what that meant to her she said just take one day at a time. Asked specifically if that meant coming back to the hospital multiple times if she is weak and found to need blood transfusions or having difficulty with breathing. She experienced comfort measures with her . She stated she understands what it means. Discussed possible conversation with hospice. She of course wants her daughters involved in this discussion. She will talk with them. Discussed plan for going home which is independent living at [place]. Plan for daughter to stay with her for short period of time. Additional Plan Dr. Monteiro was updated by telephone. Plan discussed with Dr Molina [id number] 03/23/2019 Subjective Date/time seen: 03/23/19 15:05 Interval history: Follow up for: Worsening edema, shortness of breath, anemia, CKD, chronic atrial fibrillation Date of service: 03/23/2019 Subjective: Slept in bed on night long. Well rested this morning. Denied chest discomfort or shortness of breath. No lightheadedness. Legs feel tight today Review of Systems Constitutional: Constitutional: Denies fatigue and Denies headache(s) Eyes: Eyes: Denies blurry vision ENT: Denies headache(s), Denies lip swelling and Denies neck pain Cardiovascular: Cardiovascular: Denies chest pain with activity, Reports leg edema, Denies lightheadedness and Denies dyspnea on exertion Respiratory: Respiratory: Reports cough (Nonproductive), Denies hemoptysis, Denies dyspnea on exertion and Denies wheezing Gastrointestinal: Gastrointestinal: Reports abdominal pain (Epigastric area from coughing), Denies nausea and Denies hematemesis Genitourinary: Genitourinary: Denies hematuria Musculoskeletal: M
--- NOTE | 2019-03-23 17:00 | P.PNIM_ITS ---
Progress Note: A&P Assessment and Plan (1) Anemia: Qualifiers: Anemia type: unspecified type Qualified Code(s): D64.9 - Anemia, unspecified Code(s): D64.9 - Anemia, unspecified Status: Acute Assessment and Plan: * heme + stool * iron panel c/w iron deficiency start IV fe 300 mg 03/21, 03/22,03/23 for 900 mg total * 03/15 antibody delaying transfusion * 03/16 hgb 8.1; endoscopic evaluation 03/17 * 03/17 hgb 8.4; endoscopy with colon mass * 03/18 hgb 7.9 * 03/19 hgb 8.0, path pending on bx * 03/20 hgb 8.4, path from colon bx st * 03/21 hgb 8.7 and path report adenoca transverse colon * 03/22 hbg 8.5 * 03/23 hgb 8.1 (2) Congestive heart failure: Qualifiers: Heart failure type: diastolic Heart failure chronicity: chronic Qualified Code(s): I50.32 - Chronic diastolic (congestive) heart failure Code(s): I50.9 - Heart failure, unspecified Status: Chronic Assessment and Plan: * Transitioned back to PO metalozone and PO furosemide recheck venous doppler 03/21 still negative (3) Atrial fibrillation: Qualifiers: Atrial fibrillation type: permanent Qualified Code(s): I48.21 - Permanent atrial fibrillation Code(s): I48.91 - Unspecified atrial fibrillation Status: Chronic Assessment and Plan: * Eliquis and ASA on hold. Continue with metoprolol. (4) Type 2 diabetes mellitus with hyperglycemia, with long-term current use of insulin: Code(s): E11.65 - Type 2 diabetes mellitus with hyperglycemia; Z79.4 - longterm (current) use of insulin Status: Chronic Assessment and Plan: * Continue with basal and sliding scale insulin * 03/17 FBS 99 after basal insulin held * FBS consistantly under 150 (5) Hypokalemia: Code(s): E87.6 - Hypokalemia Status: Chronic Assessment and Plan: * Replace mag and K iv and po * 2/7 AM furosemide and metolazone held * 03/18 3.2, increased to 40mEq PO QID, IV mag x 1gm * 2/9 3.9, mag 1.9, 03/20 4.6 * up to 6.0 today so kcl deceded and moniter and down to 3.6 today so restart oral kcl * 03/23 back to 2.9 and will get 160 meq again today (6) DVT prophylaxis: Code(s): Z29.9 - Encounter for prophylactic measures, unspecified Status: Acute Assessment and Plan: low dose lovenox 30 qd Subjective Date/time seen: 03/23/19 17:00 Interval history: date of visit 03/23. Sore in back from therapy, sitting in chair and was able to sleep in bed last pm. Better with movement. Ate breakfast well. No cp, less sob, less swelling. No gi/gu c/o. No bleeding. edema some better Exam Narrative: Exam Narrative: Bp 130/80 p 80 sat 98% ra HEENT: EOMI, PERR NECK: No JVD CHEST: Decr BS at bases HEART: NL S1/S2, regular, no murmur ABDOMEN: BS+, soft, nontender, no mass, no bruits EXTREMITIES: No cyanosis, 1+-2+ pretibial edema but legs rapped NEUROLOGIC: CN intact and symmetric to inspection. Objective Data Vital Signs Vital Signs: Vital Signs - 24 hr 03/22/19 21:23 03/22/19 22:00 03/23/19 06:00 Temperature 36.4 C 36.9 C Pulse Rate 82 64 100 Respiratory Rate 18 18 Blood Pressure 118/68 116/88 Pulse Oximetry 98 90 03/23/19 09:19 03/23/19 14:00 Temperature 36.7 C Pulse Rate 100 80 Respiratory Rate 16 Blood Pressure 131/79 Pulse Oximetry 97 Intake/Output Intake/Output:
--- NOTE | 2019-03-23 17:00 | PM.IMPN ---
Progress Note: A&P Assessment and Plan (1) Anemia: Qualifiers: Anemia type: unspecified type Qualified Code(s): D64.9 - Anemia, unspecified Code(s): D64.9 - Anemia, unspecified Status: Acute Assessment and Plan: heme + stool iron panel c/w iron deficiency start IV fe 300 mg 03/21, 03/22,03/23 for 900 mg total 03/15 antibody delaying transfusion 03/16 hgb 8.1; endoscopic evaluation 03/17 03/17 hgb 8.4; endoscopy with colon mass 03/18 hgb 7.9 03/19 hgb 8.0, path pending on bx 03/20 hgb 8.4, path from colon bx st 03/21 hgb 8.7 and path report adenoca transverse colon 03/22 hbg 8.5 03/23 hgb 8.1 (2) Congestive heart failure: Qualifiers: Heart failure type: diastolic Heart failure chronicity: chronic Qualified Code(s): I50.32 - Chronic diastolic (congestive) heart failure Code(s): I50.9 - Heart failure, unspecified Status: Chronic Assessment and Plan: Transitioned back to PO metalozone and PO furosemide recheck venous doppler 03/21 still negative (3) Atrial fibrillation: Qualifiers: Atrial fibrillation type: permanent Qualified Code(s): I48.21 - Permanent atrial fibrillation Code(s): I48.91 - Unspecified atrial fibrillation Status: Chronic Assessment and Plan: Eliquis and ASA on hold. Continue with metoprolol. 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 Status: Chronic Assessment and Plan: Continue with basal and sliding scale insulin 03/17 FBS 99 after basal insulin held FBS consistantly under 150 (5) Hypokalemia: Code(s): E87.6 - Hypokalemia Status: Chronic Assessment and Plan: Replace mag and K iv and po 2/7 AM furosemide and metolazone held 03/18 3.2, increased to 40mEq PO QID, IV mag x 1gm 03/19 3.9, mag 1.9, 03/20 4.6 up to 6.0 today so kcl deceded and moniter and down to 3.6 today so restart oral kcl 03/23 back to 2.9 and will get 160 meq again today (6) DVT prophylaxis: Code(s): Z29.9 - Encounter for prophylactic measures, unspecified Status: Acute Assessment and Plan: low dose lovenox 30 qd Subjective Date/time seen: 03/23/19 17:00 Interval history: date of visit 03/23. Sore in back from therapy, sitting in chair and was able to sleep in bed last pm. Better with movement. Ate breakfast well. No cp, less sob, less swelling. No gi/gu c/o. No bleeding. edema some better Exam Narrative: Exam Narrative: Bp 130/80 p 80 sat 98% ra HEENT: EOMI, PERR NECK: No JVD CHEST: Decr BS at bases HEART: NL S1/S2, regular, no murmur ABDOMEN: BS+, soft, nontender, no mass, no bruits EXTREMITIES: No cyanosis, 1+-2+ pretibial edema but legs rapped NEUROLOGIC: CN intact and symmetric to inspection. Objective Data Vital Signs Vital Signs: Vital Signs - 24 hr 03/22/19 21:23 03/22/19 22:00 03/23/19 06:00 Temperature 36.4 C 36.9 C Pulse Rate 82 64 100 Respiratory Rate 18 18 Blood Pressure 118/68 116/88 Pulse Oximetry 98 90 03/23/19 09:19 03/23/19 14:00 Temperature 36.7 C Pulse Rate 100 80 Respiratory Rate 16 Blood Pressure 131/79 Pulse Oximetry 97 Intake/Output Intake/Output: Intake & Output 03/20/19 03/21/19 03/22/19 03/23/19 23:59 23:59 23:59 23:59 Intake Total 940 1160 1320 820 Output Total 8700 172 5378 1000 Balance -410 260 -180 -180 Meds/Results Medications: Active Medications Generic Name Dose Route Start Last Admin Trade Name Freq PRN Reason Stop Dose Admin Acetaminophen 650 mg 03/14/19 18:01 03/22/19 22:51 Tylenol Tablet PO 650 mg Q4H PRN Administration Headache Albuterol 5 mg 03/14/19 18:01 Albuterol Sulf Neb 2.5mg/0.5ml INHALATION Q6HRT PRN Shortness Of Breath Dextrose 12.5 gm 03/15/19 00:38 Dextrose 50% Syringe IV PUSH
[2019-03-23 18:17] LABS: Glucose Point of Care 173 (65-105)
[2019-03-23] MEDS: ENOXAPARIN 30 MG/0.3 ML SYRINGE SUB-Q (21:35)
[2019-03-23 21:36] VITALS: PULSE 80
[2019-03-23 22:00] VITALS: BP 124/54; PULSE 77; RESP 16; TEMP 36.4; O2SAT 97
[2019-03-23] MEDS: GUAIFENESIN 200 MG/10 ML UDC PO (22:19)
[2019-03-23] MEDS: ACETAMINOPHEN 325 MG TABLET 650 MG PO (22:19)
[2019-03-23] MEDS: POTASSIUM CHLORIDE 20 MEQ TABLET 40 MEQ PO (22:21)
[2019-03-23 22:45] LABS: Glucose Point of Care 223 (65-105)
[2019-03-24] MEDS: ACETAMINOPHEN 325 MG TABLET 650 MG PO (03:44)
[2019-03-24 06:00] VITALS: BP 103/50; PULSE 89; RESP 16; TEMP 36.3; O2SAT 98
[2019-03-24 06:20] LABS: Basophils Percent Auto 0.3 % (0.2-1.2); Eosinophils Absolute Auto 0.4 K/mm3 (0-0.3); Eosinophils Percent Auto 4.6 % (0-4.4); Hematocrit 29.9 % (37.0-47.0); Hemoglobin 8.4 g/dL (12.0-15.0); Immature Granulocyte Absolute 0.02 K/mm3 (0.00-0.031); Immature Granulocyte Percent A 0.3 % (0-0.5); Lymphocytes Absolute Auto 1.64 K/mm3 (0.9-3.2); Lymphocytes Percent Auto 20.9 % (18.3-44.2); Mean Corpuscular HGB Conc 28.1 g/dl (32-36); Mean Corpuscular Hemoglobin 19.2 pg (26-34); Mean Corpuscular Volume 68.3 fl (80-100); Mean Platelet Volume 9.5 fl (7.4-10.4); Monocytes Absolute Auto 1.4 K/mm3 (0.1-0.6); Monocytes Percent Auto 17.2 % (2.6-8.5); Neutrophils Absolute Auto 4.5 K/mm3 (1.3-6.7); Neutrophils Percent Auto 56.7 % (45.5-73.1); Nucleated Red Blood Cells Absolute Auto 0.1 K/mm3 (0.0-0.012); Nucleated Red Blood Cells Perc 0.8 % (0.0-0.2); Platelet Count Result 251 k/mm3 (150-375); Red Blood Count 4.38 M/mm3 (4.2-5.4); Red Cell Distribution Width 28.7 % (11.5-14.5); White Blood Count 7.9 K/mm3 (4.5-10.0)
[2019-03-24 06:29] LABS: Blood Urea Nitrogen 31 mg/dL (7-17); Calcium 8.3 mg/dL (8.4-10.2); Carbon Dioxide 30 mmol/L (22-30); Chloride 99 mmol/L (98-107); Estimated CRCL calculation 30 ml/min; Estimated Glomerular Filt Rate 36; Glucose 124 mg/dL (65-105); Potassium 3.3 mmol/L (3.4-5.0); Sodium 138 mmol/L (137-145)
[2019-03-24 07:16] LABS: Hypochromasia 3+ (NORMAL); Ovalocytes 2+ (NORMAL); Platelet Estimate Adequate (Adequate); Polychromasia 1+ (NORMAL)
[2019-03-24 07:17] LABS: Glucose Point of Care 103 (65-105)
[2019-03-24 08:54] VITALS: PULSE 89
[2019-03-24] MEDS: FERROUS SULFATE 324 MG TABLET PO ×2 (08:54→17:22)
[2019-03-24] MEDS: EUCERIN CREAM 120 GM JAR 1 APPLIC TOPICAL (08:54)
[2019-03-24] MEDS: THERAPEUTIC MULTIVITAMINS/MINERALS TAB (*BKC) 1 TABLET PO (08:54)
[2019-03-24] MEDS: LORATADINE 10 MG TABLET PO (08:54)
[2019-03-24] MEDS: METOPROLOL TARTRATE 50 MG TAB PO (08:54)
[2019-03-24] MEDS: DOCUSATE SODIUM 100 MG CAPSULE PO (08:54)
[2019-03-24] MEDS: FUROSEMIDE 40 MG TABLET PO ×2 (08:54→17:22)
[2019-03-24] MEDS: POTASSIUM CHLORIDE 10 MEQ TABLET.ER 40 MEQ PO ×3 (08:55→17:22)
[2019-03-24] MEDS: MAGNESIUM OXIDE 400 MG TABLET PO (08:55)
[2019-03-24] MEDS: TOLNAFTATE 1% POWDER 45 GM BTL 1 APPLIC TOPICAL (08:56)
[2019-03-24 12:28] LABS: Glucose Point of Care 255 (65-105)
--- NOTE | 2019-03-24 12:29 | PM.IMPN ---
Progress Note: A&P Assessment and Plan (1) Primary adenocarcinoma of ascending colon: Code(s): C18.2 - Malignant neoplasm of ascending colon Status: Chronic Assessment and Plan: Goals of care discussion completed Subjective Date/time seen: 03/24/19 11:45 Interval history: Seen at request of Dr. Bonilla. Discussed prognosis and natural hx of colon CA with daughter at bedside. She and patient are open to hospice care once she moves back to [place]. They will consider it further and discuss it with family and [facility] administration after they return there. Objective Data Vital Signs Vital Signs: Vital Signs - 24 hr 03/23/19 14:00 03/23/19 21:36 03/23/19 22:00 Temperature 98.1 F 97.5 F L Pulse Rate 80 80 77 Respiratory Rate 16 16 Blood Pressure 131/79 124/54 L Pulse Oximetry 97 97 03/24/19 06:00 03/24/19 08:54 Temperature 97.3 F L Pulse Rate 89 89 Respiratory Rate 16 Blood Pressure 103/50 L Pulse Oximetry 98 Intake/Output Intake/Output: Intake & Output 03/21/19 03/22/19 03/23/19 03/24/19 23:59 23:59 23:59 23:59 Intake Total 1160 1320 1355 360 Output Total 900 1500 2000 Balance 260 -687 -606 360 Meds/Results Medications: Active Medications Generic Name Dose Route Start Last Admin Trade Name Freq PRN Reason Stop Dose Admin Acetaminophen 650 mg 03/14/19 18:01 03/24/19 03:44 Tylenol Tablet PO 650 mg Q4H PRN Administration Headache Albuterol 5 mg 03/14/19 18:01 Albuterol Sulf Neb 2.5mg/0.5ml INHALATION Q6HRT PRN Shortness Of Breath Dextrose 12.5 gm 03/15/19 00:38 Dextrose 50% Syringe IV PUSH PRN PRN Hypoglycemia Protocol Diltiazem HCl 120 mg 03/15/19 09:00 03/24/19 08:55 Cardizem Cd PO 120 mg QAM LIO Administration Docusate Sodium 100 mg 03/14/19 21:00 03/24/19 08:54 Colace Capsule PO 100 mg Q12HR LIO Administration Enoxaparin Sodium 30 mg 03/21/19 21:00 03/23/19 21:35 Lovenox SUB-Q 30 mg HS LIO Administration Ferrous Sulfate 324 mg 03/17/19 17:00 03/24/19 08:54 Ferrous Sulfate PO 324 mg BIDWM LIO Administration Furosemide 40 mg 03/20/19 17:15 03/24/19 08:54 Lasix Tablet PO 40 mg BID LIO Administration Glucagon 1 mg 03/15/19 00:38 Glucagon For Inj IM PRN PRN Hypoglycemia Protocol Glucose 15 gm 03/15/19 00:38 Glutose 15 PO PRN PRN Hypoglycemia Protocol Guaifenesin 200 mg 03/14/19 18:01 03/23/19 22:19 Guaifenesin Liq PO 200 mg Q4H PRN Administration Cough Dextrose 1,000 mls @ 100 mls/hr 03/15/19 00:38 Dextrose 5% 1,000 Ml IVPB PRN PRN Hypoglycemia Protocol Iron Sucrose 300 mg/ Sodium 115 mls @ 76.667 mls/hr 03/23/19 09:00 03/24/19 08:55 Chloride IVPB 03/26/19 09:01 77 mls/hr QAM [facility] Administration Insulin Aspart 3 - 6 units 03/15/19 08:00 03/24/19 07:59 Novolog SUB-Q Not Given TIDWM [facility] Protocol Insulin Glargine 25 units 03/14/19 21:00 03/23/19 21:03 Lantus SUB-Q Not Given HS [facility] Ipratropium Watson 0.5 mg 03/14/19 18:01 Atrovent Neb INHALATION Q6HRT PRN Shortness Of Breath Lidocaine HCl 0.3 ml 03/17/19 08:08 Xylocaine 2% Local Inj INTRADERM ONCE PRN to numb area Loratadine 10 mg 03/15/19 09:00 03/24/19 08:54 Claritin PO 10 mg DAILY [facility] Administration Magnesium Oxide 400 mg 03/15/19 09:00 03/24/19 08:55 Mag-Ox PO 400 mg DAILY [facility] Administration Metolazone 5 mg 03/21/19 08:00 03/23/19 09:19 Zaroxolyn PO 5 mg Q48H LIO Administration Metoprolol Tartrate 50 mg 03/15/19 21:00 03/24/19 08:54 Lopressor PO 50 mg Q12HR LIO Administration Multi-Ingred Cream/Lotion/Oil/Oint 1 applic 03/15/19 09:00 03/24/19 08:54 Minerin Creme TOPICAL 1 applic DAILY LIO Administration Multivitamins/Calcium 1 tablet 03/15/19 09:00 03/24/19 08:54
[2019-03-24] MEDS: INSULIN ASPART (*BKC) 100 UNITS/ML SUB-Q (12:31)
[2019-03-24 14:00] VITALS: BP 120/61; PULSE 89; RESP 16; TEMP 36.1; O2SAT 100
--- NOTE | 2019-03-24 16:46 | PM.PNCARD ---
Progress Note: A&P Assessment and Plan (1) Hypokalemia: Code(s): E87.6 - Hypokalemia Status: Chronic Assessment and Plan: Potassium 3.3 today. Received 4 doses of 40 mEq of potassium yesterday. Continue potassium 40 mEq t.i.d. BMP and magnesium on Wednesday with results to go to Dr. Monteiro (2) Chronic kidney disease, stage IV (severe): Code(s): N18.4 - Chronic kidney disease, stage 4 (severe) Status: Chronic Assessment and Plan: renal function is stable. Continue to monitor. Tolerating diuresis. (3) Severe obstructive sleep apnea: Code(s): G47.33 - Obstructive sleep apnea (adult) (pediatric) Status: Chronic Assessment and Plan: Uses oxygen at 1 L at night (4) Chronic atrial fibrillation: Code(s): I48.20 - Chronic atrial fibrillation, unspecified Status: Acute Assessment and Plan: Heart rate is nicely controlled. Tolerating metoprolol at 50 mg p.o. b.i.d. and diltiazem CD 120 mg daily.. Daughter is questioning why she is not on 100 mg of Metoprolol b.i.d. and diltiazem at 240 mg daily. Explained that these doses were decreased when her blood pressure was low. Blood pressure nicely controlled on these doses as well as her heart rate. Eliquis was discontinued when bleeding was identified. There still very concerned about her stroke risk. She is at risk for bleeding from her colon cancer if her Eliquis is could be weak resumed. Recommend not resuming the Eliquis. They would like Dr. Monteiro's opinion on this. They question how long she could have had and anemia. The only place that she has had lab work is been here at the hospital. Question whether or not this was being watched. (5) Congestive heart failure: Qualifiers: Heart failure type: diastolic Heart failure chronicity: chronic Qualified Code(s): I50.32 - Chronic diastolic (congestive) heart failure Code(s): I50.9 - Heart failure, unspecified Status: Chronic Assessment and Plan: Continue furosemide 40 mg b.i.d.. Continue metolazone 5 mg every 48 hours. Daughter wants her back on metolazone 5 mg daily. Explained that when she had the metolazone a daily she came in dehydrated and in acute renal failure and potassium was elevated. Has been tolerating the metolazone every other day with stable renal function. Potassium supplementation as above. Monitor renal function and electrolytes closely as an outpatient Recommended daily weights. If gains more than 3 lb in 2 days or 5 lb in 1 week she is to call Dr. Monteiro's office for recommendations (6) Chronic anticoagulation: Code(s): Z79.01 - roasterman (current) use of anticoagulants Status: Acute Assessment and Plan: As above. (7) Primary adenocarcinoma of ascending colon: Code(s): C18.2 - Malignant neoplasm of ascending colon Status: Chronic Assessment and Plan: At this time she has elected not to treat the colon cancer. Daughters questioned what type of discussion I had yesterday with her regarding comfort and what that meant to her. She understood that I said she was ready for hospice and needed to have that discussion with her daughters. Clarified that I said she needed to discuss with her family what comfort measures meant to her and how to achieve that. This certainly might include a hospice conversation. One of the daughters responded that down the road. Additional Plan OK to discharge from cardiac standpoint. Dr. Bonilla was present for this conversation. Plan discussed with Dr. Waterman 1650 03/24/2019 Subjective Date/time seen: 03/24/19 16:46 Interval history: Follow up for: Worsening edema, shortness of breath, anemia, CKD, chronic atrial fibrillation Date of service: 03/24/2019 Subjective: Up in chair. All daughter
[2019-03-24 17:46] LABS: Glucose Point of Care 164 (65-105)
--- NOTE | 2019-03-25 18:18 | P.DS_ITS ---
DS: Diagnosis Admitting Diagnosis Admitting Diagnosis: Anemia, unspecified Discharge Diagnosis (1) Anemia: Qualifiers: Anemia type: unspecified type Qualified Code(s): D64.9 - Anemia, unspecified Code(s): D64.9 - Anemia, unspecified Status: Acute Assessment and Plan: * heme + stool * iron panel c/w iron deficiency start IV fe 300 mg 03/21, 03/22,03/23,03/24 for 1200 mg total * 03/15 antibody delaying transfusion, received 2 units PRBC while here * 03/16 hgb 8.1; endoscopic evaluation 03/17 * 03/17 hgb 8.4; endoscopy with colon mass transverse colon * 03/18 hgb 7.9 * 03/19 hgb 8.0, path pending on bx * 03/20 hgb 8.4, path from colon bx st * 03/21 hgb 8.7 and path report adenoca transverse colon * 03/22 hbg 8.5 * 03/23 hgb 8.1 * 03/24 hgb 8.4 day of discharge (2) Congestive heart failure: Qualifiers: Heart failure type: diastolic Heart failure chronicity: chronic Qualified Code(s): I50.32 - Chronic diastolic (congestive) heart failure Code(s): I50.9 - Heart failure, unspecified Status: Chronic Assessment and Plan: * Transitioned back to PO metalozone and PO furosemide venous doppler 03/21 negative as had been earlier in hospitalization Blood pressure was low so diltiazem was decreased to 120 mg daily and metoprolol decreased to 50 b.i.d.. Daughters were concerned that she is not on her previous doses of meds including metolazone daily. Myself and Roxann Reid try to explain at length that her renal status and blood pressure would not support higher doses of those medications. (3) Atrial fibrillation: Qualifiers: Atrial fibrillation type: permanent Qualified Code(s): I48.21 - Permanent atrial fibrillation Code(s): I48.91 - Unspecified atrial fibrillation Status: Chronic Assessment and Plan: * Eliquis and ASA on hold. 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 Status: Chronic Assessment and Plan: * Continued with basal and sliding scale insulin * FBS consistantly under 150 * resume her usual regime at d/c (5) Hypokalemia: Code(s): E87.6 - Hypokalemia Status: Chronic Assessment and Plan: * Replace mag and K iv and po * 03/17 AM furosemide and metolazone held * 03/18 3.2, increased to 40mEq PO QID, IV mag x 1gm * 03/19 3.9, mag 1.9, 03/20 4.6 * up to 6.0 today so kcl deceded and moniter and down to 3.6 today so restart oral kcl * 03/23 back to 2.9 and will get 160 meq again today * 03/24 k at 3.3 and discharge on 40 tid (6) Primary adenocarcinoma of ascending colon: Code(s): C18.2 - Malignant neoplasm of ascending colon Status: Chronic Assessment and Plan: Found on colonoscopy 03/17 in the mid ascending colon. Path report well differentiated adenocarcinoma. Mass 3 x 5 cm Patient and family were adamant about no surgical intervention. They did meet briefly with surgery as well as Oncology but denied intervention. They are aware of the long-term consequences. We tried to explain at length that the risk of bleeding with continued anticoagulation out weight the risk of stroke without anticoagulation. Daughters were still concerned about not receiving anticoagulation and will contact Dr. Monteiro is office. (7) Chronic kidney disease, stage IV (severe): Code(s): N18.4 - Chronic kidney disease, stage 4 (severe)
--- NOTE | 2019-03-25 18:18 | PM.DS ---
DS: Diagnosis Admitting Diagnosis Admitting Diagnosis: Anemia, unspecified Discharge Diagnosis (1) Anemia: Qualifiers: Anemia type: unspecified type Qualified Code(s): D64.9 - Anemia, unspecified Code(s): D64.9 - Anemia, unspecified Status: Acute Assessment and Plan: heme + stool iron panel c/w iron deficiency start IV fe 300 mg 03/21, 03/22,03/23,03/24 for 1200 mg total 03/15 antibody delaying transfusion, received 2 units PRBC while here 03/16 hgb 8.1; endoscopic evaluation 03/17 03/17 hgb 8.4; endoscopy with colon mass transverse colon 03/18 hgb 7.9 03/19 hgb 8.0, path pending on bx 03/20 hgb 8.4, path from colon bx st 03/21 hgb 8.7 and path report adenoca transverse colon 03/22 hbg 8.5 03/23 hgb 8.1 03/24 hgb 8.4 day of discharge (2) Congestive heart failure: Qualifiers: Heart failure type: diastolic Heart failure chronicity: chronic Qualified Code(s): I50.32 - Chronic diastolic (congestive) heart failure Code(s): I50.9 - Heart failure, unspecified Status: Chronic Assessment and Plan: Transitioned back to PO metalozone and PO furosemide venous doppler 03/21 negative as had been earlier in hospitalization Blood pressure was low so diltiazem was decreased to 120 mg daily and metoprolol decreased to 50 b.i.d.. Daughters were concerned that she is not on her previous doses of meds including metolazone daily. Myself and Roxann Reid try to explain at length that her renal status and blood pressure would not support higher doses of those medications. (3) Atrial fibrillation: Qualifiers: Atrial fibrillation type: permanent Qualified Code(s): I48.21 - Permanent atrial fibrillation Code(s): I48.91 - Unspecified atrial fibrillation Status: Chronic Assessment and Plan: Eliquis and ASA on hold. Continue with metoprolol.50 bid and diltiazem 120 qd with good controlled ventricular response (4) Type 2 diabetes mellitus with hyperglycemia, with long-term current use of insulin: Code(s): E11.65 - Type 2 diabetes mellitus with hyperglycemia; Z79.4 - MCFP (current) use of insulin Status: Chronic Assessment and Plan: Continued with basal and sliding scale insulin FBS consistantly under 150 resume her usual regime at d/c (5) Hypokalemia: Code(s): E87.6 - Hypokalemia Status: Chronic Assessment and Plan: Replace mag and K iv and po 03/17 AM furosemide and metolazone held 03/18 3.2, increased to 40mEq PO QID, IV mag x 1gm 03/19 3.9, mag 1.9, 03/20 4.6 up to 6.0 today so kcl deceded and moniter and down to 3.6 today so restart oral kcl 03/23 back to 2.9 and will get 160 meq again today 03/24 k at 3.3 and discharge on 40 tid (6) Primary adenocarcinoma of ascending colon: Code(s): C18.2 - Malignant neoplasm of ascending colon Status: Chronic Assessment and Plan: Found on colonoscopy 03/17 in the mid ascending colon. Path report well differentiated adenocarcinoma. Mass 3 x 5 cm Patient and family were adamant about no surgical intervention. They did meet briefly with surgery as well as Oncology but denied intervention. They are aware of the long-term consequences. We tried to explain at length that the risk of bleeding with continued anticoagulation out weight the risk of stroke without anticoagulation. Daughters were still concerned about not receiving anticoagulation and will contact Dr. Monteiro is office. (7) Chronic kidney disease, stage IV (severe): Code(s): N18.4 - Chronic kidney disease, stage 4 (severe) Status: Chronic Assessment and Plan: Creatinine 1.4 at discharge had will have CBC and BMP drawn on the 19 with magnesium DS: Summary Hospital Course Hospital Course: 83-year-old hypertensive white female with chronic AFib on anticoagulation admitted with guaiac-positive stool worsening anemia. Transfuse 2 units of packed cells and underwent colonoscope exam 03/17. Parviz
== END 2019-03-24 18:30 | disposition home or self-care (01) | DRG 375 ==
LOC: ANHIMU 03-17 20:44 → ANH3MEDSUR 03-20 08:33 → ANHIMU 03-27 13:59
PROVIDERS: Family Medicine; Internal Medicine Gastroenterology; Internal Medicine Nephrology; Nurse Practitioner; Physician Assistant; Admitting Provider Internal Medicine; PCP Family Medicine; Visit Provider Internal Medicine
PROC: 0DJ08ZZ Inspection of Upper Intestinal Tract, Via Natural or Artificial Opening Endoscopic (ICD-10-PCS; CPT 43235; principal; 2019-03-17 12:00)
DX: C18.2 Malignant neoplasm of ascending colon (principal); I50.32 Chronic diastolic (congestive) heart failure; N18.4 Chronic kidney disease, stage 4 (severe); I48.20 Chronic atrial fibrillation, unspecified; D50.0 Iron deficiency anemia secondary to blood loss (chronic); R19.5 Other fecal abnormalities; D12.3 Benign neoplasm of transverse colon; K64.8 Other hemorrhoids; K57.30 Diverticulosis of large intestine without perforation or abscess without bleeding; E11.22 Type 2 diabetes mellitus with diabetic chronic kidney disease; E11.65 Type 2 diabetes mellitus with hyperglycemia; E11.42 Type 2 diabetes mellitus with diabetic polyneuropathy; E87.6 Hypokalemia; K21.9 Gastro-esophageal reflux disease without esophagitis; E83.42 Hypomagnesemia; G47.33 Obstructive sleep apnea (adult) (pediatric); R82.81 Pyuria; H35.30 Unspecified macular degeneration; Z79.4 Long term (current) use of insulin; Z79.01 Long term (current) use of anticoagulants; Z86.718 Personal history of other venous thrombosis and embolism; Z66 Do not resuscitate; Z90.710 Acquired absence of both cervix and uterus; Z90.49 Acquired absence of other specified parts of digestive tract; Z86.73 Personal history of transient ischemic attack (TIA), and cerebral infarction without residual deficits; E66.9 Obesity, unspecified; Z68.36 Body mass index [BMI] 36.0-36.9, adult
CPT/HCPCS: 36415; 36430; 80048; 80053; 80069; 82040; 82248; 82378; 82570; 82607; 82728; 82746; 83540; 83550; 83615; 83735; 84100; 84132; 84155; 84156; 84165; 84300; 84466; 85014; 85018; 85025; 85027; 85046; 86850; 86860; 86870; 86880; 86900; 86901; 86922; 88304; 88305; 93970; 97110; 97116; 97161; 97166; 97530; 97535; A9270; J1650; J1756; J1815; J1940; J2704; J3475; J3480; J7050; J7120; P9016

== ENCOUNTER 2019-03-29 13:35 | Outpatient (CLI) | payer MEDICARE, OTHER, SELFPAY ==
[2019-03-29 14:20] LABS: Basophils Percent Auto 0.2 % (0.2-1.2); Eosinophils Absolute Auto 0.1 K/mm3 (0-0.3); Eosinophils Percent Auto 1.3 % (0-4.4); Hematocrit 33.6 % (37.0-47.0); Hemoglobin 9.1 g/dL (12.0-15.0); Immature Granulocyte Absolute 0.05 K/mm3 (0.00-0.031); Immature Granulocyte Percent A 0.5 % (0-0.5); Lymphocytes Absolute Auto 1.88 K/mm3 (0.9-3.2); Lymphocytes Percent Auto 17.8 % (18.3-44.2); Mean Corpuscular HGB Conc 27.1 g/dl (32-36); Mean Corpuscular Hemoglobin 20.5 pg (26-34); Mean Corpuscular Volume 75.7 fl (80-100); Mean Platelet Volume 10.1 fl (7.4-10.4); Monocytes Absolute Auto 1.2 K/mm3 (0.1-0.6); Monocytes Percent Auto 11.5 % (2.6-8.5); Neutrophils Absolute Auto 7.3 K/mm3 (1.3-6.7); Neutrophils Percent Auto 68.7 % (45.5-73.1); Platelet Count Result 195 k/mm3 (150-375); Red Blood Count 4.44 M/mm3 (4.2-5.4); Red Cell Distribution Width 34.5 % (11.5-14.5); White Blood Count 10.6 K/mm3 (4.5-10.0)
[2019-03-29 14:32] LABS: Blood Urea Nitrogen 31 mg/dL (7-17); Calcium 8.1 mg/dL (8.4-10.2); Carbon Dioxide 30 mmol/L (22-30); Chloride 105 mmol/L (98-107); Estimated Glomerular Filt Rate 31; Glucose 142 mg/dL (65-105); Potassium 3.2 mmol/L (3.4-5.0); Sodium 143 mmol/L (137-145)
[2019-03-29 14:58] LABS: Platelet Estimate Adequate (Adequate)
[2019-03-29 14:59] LABS: Anisocytosis 3+ (NORMAL); Hypochromasia 1+ (NORMAL)
== END 2019-03-29 13:36 | disposition home or self-care (01) ==
LOC: ANHLAB 13:38
PROVIDERS: PCP Family Medicine; Visit Provider Internal Medicine Cardiovascular Disease
DX: D64.9 Anemia, unspecified (principal); E87.6 Hypokalemia
CPT/HCPCS: 36415; 80048; 85025

== ENCOUNTER 2019-04-06 11:47 | Outpatient (CLI) | payer MEDICARE, OTHER, SELFPAY ==
--- NOTE | ~2019-04-06 | PE_ITS ---
EXAMINATION: PET skull to mid thigh DATE: 04/06/2019 14:15 INDICATION: Malignant neoplasm of the colon TECHNIQUE: Blood glucose level was 152 mg/dL. 10.88 mCi of 18-fluorodeoxyglucose (18-FDG) was adminis tered i.v. Low dose computed tomography (CT) images were acquired from the base of the brain to the p roximal thighs for attenuation correction and anatomic localization. Positron emission tomography (PE T) images were acquired in the same distribution beginning 73 minutes after injection. COMPARISON: None FINDINGS: Head/neck: No abnormal FDG uptake is identified. Intraorbital and vocal cord uptake without suspiciou s CT correlate is likely physiologic. There are no pathologically enlarged neck lymph nodes. Chest: There our small pleural effusions, right greater than left. There is no pneumothorax. Evaluati on of the lungs limited by respiratory motion artifact however no abnormal FDG uptake is identified. There are no pathologically enlarged thoracic lymph nodes. Cardiomegaly is noted. There is enlargemen t of the main and central pulmonary arteries, consistent with pulmonary hypertension. There is calcif ied coronary artery atherosclerosis. Abdomen/pelvis/proximal thighs: There is an approximately 3.8 cm area of wall thickening of the ascen ding colon with abnormal FDG uptake. SUV max is 4.9. No additional areas of abnormal FDG uptake are i dentified. Physiologic FDG activity is present in the bowel and urinary tract. The gallbladder is jennifer gically absent. Cysts of the kidneys measure up to 10.1 cm on the right. Punctate calcifications in a n otherwise normal spleen likely represent healed granulomatous disease. No pathologically enlarged a bdominal or pelvic lymph nodes are identified. There is no free intraperitoneal gas or evidence of charan wel obstruction. There is calcified atherosclerosis of the aorta and many of the other arteries. Musculoskeletal: There is a burst fracture of the L1 vertebral body. IMPRESSION: 1. Approximately 3.8 cm area of wall thickening with associated abnormal FDG uptake in the ascending colon, corresponding to the biopsy-proven malignancy. 2. No evidence of metastatic disease. Reviewed, dictated and finalized at location A. [employer] IMPRESSION: 1. Approximately 3.8 cm area of wall thickening with associated abnormal FDG up take in the ascending colon, corresponding to the biopsy-proven malignancy. 2. No evidence of metastatic disease.
[2019-04-06 12:18] LABS: Glucose Point of Care 152 (65-105)
== END 2019-04-06 11:48 | disposition home or self-care (01) ==
LOC: ANHIMG 11:49
PROVIDERS: PCP Family Medicine; Visit Provider Internal Medicine Hematology & Oncology
DX: C18.6 Malignant neoplasm of descending colon (principal)
CPT/HCPCS: 78815; A9552

== ENCOUNTER 2019-04-12 14:55 | Outpatient (CLI) | payer MEDICARE, OTHER, SELFPAY ==
[2019-04-12 15:43] LABS: Basophils Percent Auto 0.4 % (0.2-1.2); Eosinophils Absolute Auto 0.2 K/mm3 (0-0.3); Eosinophils Percent Auto 2.7 % (0-4.4); Hematocrit 37.2 % (37.0-47.0); Hemoglobin 10.8 g/dL (12.0-15.0); Immature Granulocyte Absolute 0.01 K/mm3 (0.00-0.031); Immature Granulocyte Percent A 0.1 % (0-0.5); Lymphocytes Absolute Auto 2.17 K/mm3 (0.9-3.2); Lymphocytes Percent Auto 30.5 % (18.3-44.2); Mean Corpuscular Hemoglobin 22.6 pg (26-34); Mean Platelet Volume 9.1 fl (7.4-10.4); Monocytes Percent Auto 14.6 % (2.6-8.5); Neutrophils Absolute Auto 3.7 K/mm3 (1.3-6.7); Neutrophils Percent Auto 51.7 % (45.5-73.1); Platelet Count Result 229 k/mm3 (150-375); Red Blood Count 4.77 M/mm3 (4.2-5.4); White Blood Count 7.1 K/mm3 (4.5-10.0)
[2019-04-12 15:45] LABS: Blood Urea Nitrogen 31 mg/dL (7-17); Calcium 8.2 mg/dL (8.4-10.2); Carbon Dioxide 29 mmol/L (22-30); Chloride 96 mmol/L (98-107); Estimated Glomerular Filt Rate 36; Glucose 249 mg/dL (65-105); Potassium 3.4 mmol/L (3.4-5.0); Sodium 138 mmol/L (137-145)
[2019-04-12 16:24] LABS: Acanthocytes 1+ (NORMAL); Platelet Estimate Adequate (Adequate); Stomatocytes 1+ (NORMAL); Target Cells 2+ (NORMAL)
== END 2019-04-12 14:56 | disposition home or self-care (01) ==
LOC: ANHLAB 14:59
PROVIDERS: PCP Family Medicine; Visit Provider Physician Assistant
DX: E87.5 Hyperkalemia (principal); D64.9 Anemia, unspecified; E11.65 Type 2 diabetes mellitus with hyperglycemia; Z79.4 Long term (current) use of insulin
CPT/HCPCS: 36415; 80048; 85025

== ENCOUNTER 2019-07-20 09:44 | Outpatient (CLI) | payer MEDICARE, OTHER, SELFPAY ==
[2019-07-20 11:17] LABS: Hematocrit 46.4 % (37.0-47.0)
[2019-07-20 11:31] LABS: Blood Urea Nitrogen 37 mg/dL (7-17); Calcium 8.9 mg/dL (8.4-10.2); Carbon Dioxide 32 mmol/L (22-30); Chloride 96 mmol/L (98-107); Estimated Glomerular Filt Rate 31; Glucose 235 mg/dL (65-105); Potassium 3.2 mmol/L (3.4-5.0); Sodium 137 mmol/L (137-145)
[2019-07-20 11:57] LABS: INR 1.2; Prothrombin Time 15.2 Seconds (11.1-14.7)
[2019-07-20 12:01] LABS: Carcinoembryonic Antigen 2.5 ng/mL (0.0-3.0)
== END 2019-07-20 09:45 | disposition home or self-care (01) ==
LOC: ANHSURGERY 09:47
PROVIDERS: Anesthesiology; PCP Family Medicine; Visit Provider Surgery
DX: C18.2 Malignant neoplasm of ascending colon (principal); D64.9 Anemia, unspecified; N18.4 Chronic kidney disease, stage 4 (severe); Z79.899 Other long term (current) drug therapy
CPT/HCPCS: 36415; 80048; 82378; 83036; 85014; 85018; 85610; 85730; 86850; 86900; 86901

== ENCOUNTER 2019-07-20 09:51 | Outpatient (CLI) | payer MEDICARE, OTHER, SELFPAY ==
[2019-07-20 11:47] LABS: Hemoglobin A1C 7.9 % (<5.7)
== END 2019-07-20 09:52 | disposition home or self-care (01) ==
LOC: ANHLAB 09:54
PROVIDERS: PCP Family Medicine; Visit Provider Physician Assistant
DX: E11.65 Type 2 diabetes mellitus with hyperglycemia (principal); Z79.4 Long term (current) use of insulin
CPT/HCPCS: 36415; 83036

== ENCOUNTER 2019-07-25 00:17 | Outpatient (CLI) | payer MEDICARE, OTHER, SELFPAY ==
[2019-07-25 18:12] LABS: SARS-CoV-2 RNA PCR Negative
== END 2019-07-25 00:18 | disposition home or self-care (01) ==
LOC: ANHCOVIDDT 00:19
PROVIDERS: PCP Family Medicine; Visit Provider Surgery
DX: Z20.828 Contact with and (suspected) exposure to other viral communicable diseases (principal); Z01.812 Encounter for preprocedural laboratory examination
CPT/HCPCS: 87635; C9803; U0003

== ENCOUNTER 2019-07-27 15:17 | Inpatient (IN) | payer MEDICARE, OTHER, SELFPAY ==
[2019-07-20 12:12] VITALS: BP 126/69; PULSE 94; RESP 18; TEMP 36.5; O2SAT 94
[2019-07-20 12:28] VITALS: BMI 32.5
--- NOTE | 2019-07-25 14:03 | PM.IMHP ---
H&P: HPI History of Present Illness Chief complaint: Right Colon Ca Narrative: Radha Salmeron is a 84 year old female who presented to [facility] in March with severe anemia. This was treated and she had a colonoscopy which showed a mid ascending colon cancer. Initially the patient did not want to proceed with surgery but later changed her mind after talking with Oncology and her jboss developer. I saw her in the office and discuss the surgery. She is taken to surgery now after bowel preparation for hand access laparoscopic right colectomy. Her CT scan was negative for metastatic disease and her CEA level was 3.6. She has had a previous laparoscopic cholecystectomy and hysterectomy. Review of Systems Review of Systems: All systems reviewed & are unremarkable except as noted in HPI and below Constitutional: Constitutional: Denies headache(s) ENT: Denies headache(s) Cardiovascular: Cardiovascular: Denies chest pain, Reports irregular heart rhythm and Denies dyspnea Comments: Patient known to have atrial fibrillation, bivalvular heart disease, and congestive heart failure by history. Respiratory: Respiratory: Denies cough and Denies dyspnea Gastrointestinal: Gastrointestinal: Denies bloating, Denies constipation and Denies nausea Neurologic: Denies confusion and Denies headache(s) Psychiatric: Psychiatric: Denies confusion Endocrine: Endocrine: Reports other (Insulin-dependent diabetes) Hematologic/Lymphatic: Hematologic/Lymphatic: Reports other (Anemia, see HPI) Allergic/Immunologic: Comments: Multiple allergies including adhesive tape PMFSH Past Medical History Medical History Anxiety Atrial fibrillation with slow ventricular response CKD (chronic kidney disease) stage 4, GFR 15-29 ml/min With baseline creatinine between 1.6 and 1.9 Congestive heart failure (CHF) With most recent echocardiogram 12/2018 systolic function lower limits of normal with EF of 50-56%. Severe right ventricular enlargement, mild right ventricular hypokinesis. Severe biatrial enlargement. Mild mitral valve regurgitation. Mild pulmonary hypertension with RVSP of 36. Moderate tricuspid regurgitation. Severe pulmonic regurgitation. Atrial fibrillation Cough Diabetes DVT (deep venous thrombosis) GERD (gastroesophageal reflux disease) History of fractured vertebra HTN (hypertension) Hyperkalemia Hypokalemia Hypomagnesemia WIN (iron deficiency anemia) Macular degeneration Peripheral neuropathy Pneumonia Severe obstructive sleep apnea Intolerant to CPAP TIA (transient ischemic attack) Venous stasis ulcers Surgical History Surgical History H/O: hysterectomy History of cholecystectomy open Family History Family History Mother Family history of respiratory disorder, Onset Age: 21 Other Family history of cardiovascular disease Social History Social History Social History: The patient resides at [facility]. She is . Her daughter Katelyn is her healthcare power of workers compensation defense attorney. Code status: DNR per patient request Primary care physician: Dr. 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 Smoking status: Never smoker Second hand tobacco smoke exposure: No Alcohol intake: never Substance use: never Substance use type: does not use Gender identity (if verbalized by the patient): Female Spiritual care concerns: No Agree to blood products: Yes Meds Home Medications and Allergies Home Medications Medication Instructions Recorded Confirmed Type pen needle, diabetic 31 gauge x #100 each 12/26/18 04/26/19 Rx 06/23 blood sugar diagnostic #10 each 01/11/19 04/26/19 History dana
[2019-07-27] VITALS (26 sets, daily range): BP systolic 96–154; BP diastolic 57–101; PULSE 84–128; RESP 10–26; TEMP 35.8–36.3; O2SAT 92–100; BMI 33.3
--- NOTE | ~2019-07-27 | XR_ITS ---
EXAMINATION: XR abdomen NG/feed tube insert INDICATION: Endotracheal tube placement TECHNIQUE: Portable AP KUB-NG at 1603 hours COMPARISON: None available FINDINGS: The nasogastric tube is in the stomach. There is stable cardiomegaly. Airspace opacities ar e present in the lung bases. Surgical clips in the right upper quadrant are likely from prior cholecy stectomy. IMPRESSION: 1. Nasogastric tube in the stomach. Reviewed, dictated and finalized at location A.
--- NOTE | ~2019-07-27 | XR_ITS ---
EXAMINATION: XR chest ET placement INDICATION: Endotracheal tube placement TECHNIQUE: Portable AP chest at 1429 hours COMPARISON: 03/14/2019 FINDINGS: The endotracheal tube ends approximately 3.7 cm above the jennifer. There are minimal airspac e opacities of the lung bases and in the right midlung zone. No definite pleural effusion or pneumoth orax is identified. Stable cardiomegaly is noted. Surgical clips in the right upper quadrant are like ly from prior cholecystectomy. IMPRESSION: 1. Airspace opacities of the lung bases and right midlung zone, consistent with atelectasis versus pn eumonia. 2. Stable cardiomegaly. 3. Endotracheal tube in adequate position. Reviewed, dictated and finalized at location A. IMPRESSION: 1. Airspace opacities of the lung bases and right midlung zone, consistent with atelectasis versus pneumonia. 2. Stable cardiomegaly. 3. Endotracheal tube in adequate position.
--- NOTE | 2019-07-27 08:21 | WPDHPUPDATE1 ---
History and Physical Update Update Date/Time: 07/27/19 08:21 History and Physical has been reviewed, including an updated exam of the patient. There are NO changes in the patient's condition. Risks, benefits, and alternatives have been discussed and questions answered. Patient agrees to proceed with procedure.
[2019-07-27 09:09] LABS: Glucose Point of Care 262 (65-105)
--- NOTE | 2019-07-27 09:25 | WPDANESEPPF ---
Anes - Initial Pre Proc Eval Procedure: Operation Date: 07/27/19 10:30 Proposed Procedures p Hand Assisted Laparoscopic Right Colectomy - Brandon Mclean MD Date/Time: 07/27/19 09:25 Surgeon: Brandon Mclean MD Pre Op Diagnosis: Right Colon Ca Patient Data Age: 84 Gender: F Height: 5 ft 3 in Weight: 83.3 kg Last Vital Signs Temp 36.5 C 07/20/19 12:12 Pulse 94 07/20/19 12:12 Resp 18 07/20/19 12:12 BP 126/69 07/20/19 12:12 Pulse Ox 94 07/20/19 12:12 Allergies Allergy/AdvReac Type Severity Reaction Status Date / Time adhesive tape Allergy Unknown Rash Verified 07/27/19 09:14 cetirizine Allergy Unknown Swelling Verified 07/27/19 09:14 of Lip/Tongue/Throat diazepam Allergy Unknown Cough Verified 07/27/19 09:14 gabapentin Allergy Unknown Confusion Verified 07/27/19 09:14 levetiracetam Allergy Unknown Confusion Verified 07/27/19 09:14 levofloxacin Allergy Unknown Confusion Verified 07/27/19 09:14 pregabalin Allergy Unknown Confusion Verified 07/27/19 09:14 zolpidem Allergy Unknown Hallucinati Verified 07/27/19 09:14 ng sleep aids - all AdvReac Severe Confusion Uncoded 07/27/19 09:14 Home Medications Medication Instructions Recorded Confirmed Type pen needle, diabetic 31 gauge x #100 each 12/26/18 04/26/19 Rx /16 blood sugar diagnostic #10 each 01/11/19 04/26/19 History loratadine 10 mg tablet 10 mg PO DAILY 01/11/19 07/27/19 History diltiazem HCl 120 mg PO QAM #30 cap 02/26/19 07/27/19 Rx furosemide 40 mg PO BID #60 tablet 02/26/19 07/20/19 Rx metolazone 5 mg PO Q48H #14 tablet 02/26/19 07/27/19 Rx potassium chloride [K-Tab] 40 meq PO TID #30 tablet 02/26/19 07/27/19 Rx magnesium oxide 400 mg PO DAILY 03/14/19 07/27/19 History PreserVision AREDS-2 1 tablet PO BID 03/18/19 07/27/19 History metoprolol tartrate 50 mg PO Q12HR #60 tablet 03/24/19 07/27/19 Rx ferrous sulfate 325 mg (65 mg 325 mg PO DAILY #30 tablet 04/12/19 07/20/19 Rx iron) tablet oxybutynin chloride 5 mg 5 mg PO DAILY tablet 04/24/19 07/27/19 History tablet,extended release 24 hr neomycin 500 mg tablet See Rx Instructions .ROUTE 06/14/19 07/27/19 Rx .COMPLEX #6 tablet pantoprazole 40 mg tablet,delayed 40 mg PO QAM #90 tablet 06/19/19 07/27/19 Rx release blood sugar diagnostic #100 each 06/23/19 Rx insulin glargine U-300 conc 22 unit SUBCUT HS 07/20/19 07/20/19 History [Toujeo SoloStar U-300 Insulin] insulin lispro [Humalog U-100 1 sliding scale dose SUBCUT 07/20/19 07/27/19 History Insulin] USEASDIRECTD Laboratory Tests 07/27/19 09:07 POC Capillary Glucose 262 mg/dl H mg/dl (65-105) Patient hx anesthesia problems: none Family hx anesthesia problems: none PMFSH Past Medical History Medical History Anxiety Atrial fibrillation with slow ventricular response CKD (chronic kidney disease) stage 4, GFR 15-29 ml/min With baseline creatinine between 1.6 and 1.9 Congestive heart failure (CHF) With most recent echocardiogram 12/2018 systolic function lower limits of normal with EF of 50-56%. Severe right ventricular enlargement, mild right ventricular hypokinesis. Severe biatrial enlargement. Mild mitral valve regurgitation. Mild pulmonary hypertension with RVSP of 36. Moderate tricuspid regurgitation. Severe pulmonic regurgitation. Atrial fibrillation Cough Diabetes DVT (deep venous thrombosis) GERD (gastroesophageal reflux disease) History of fractured vertebra HTN (hypertension) Hyperkalemia Hypokalemia Hypomagnesemia WIN (iron deficiency anemia) Macular degeneration Peripheral neuropathy Pneumonia Severe obstructive sleep apnea Intolerant to CPAP TIA (transient ischemic attack) Venous stasis ulcers Surgical History Surgical History H/O: hysterectomy History of cholecystectomy open Family History Family History (Reviewed 07/27/19 @ 09:25 by
[2019-07-27] MEDS: ALVIMOPAN 12 MG CAPSULE PO (10:00)
[2019-07-27] MEDS: ceFAZolin 2 GM/D5W 50 ML 2 GM/50 ML BAG IVPB (10:21)
[2019-07-27] MEDS: BUPIVACAINE/EPINEPHRINE 0.5% 30 ML VIAL INFILTRATE (11:31)
[2019-07-27] MEDS: LACTATED RINGERS 1,000 ML 30 ML IV CONT (12:56)
--- NOTE | 2019-07-27 13:37 | PM.PROC ---
Procedure Note - Detailed Date of procedure: 07/27/19 Pre-op diagnosis: Right Colon Ca ASCENDING COLON CANCER Post-op diagnosis: same Procedure performed: Hand access laparoscopic right hemicolectomy with ileotransverse anastomosis Description of procedure: The patient was taken to surgery and induced into general anesthesia. The abdomen was prepped and draped. The hand access port incision was drawn on the skin with a marker. This was in the upper abdominal midline above the umbilicus. Local anesthesia was infiltrated into the skin and the subcutaneous here. Incision was made. Dissection was carried down through the subcutaneous and through the midline fascia. The peritoneal cavity was opened and extended the length of the wound. The Buck wound guard was then placed. The GelPort was placed. I placed a hand in the abdomen and then infiltrated local in the right lower quadrant. A 5 mm trocar was placed here using my hand to avoid intra-abdominal injury. With the trocar in place, we insufflated and then placed the camera. There were a few anterior abdominal wall adhesions of omentum in the left lower quadrant. These were flimsy and were able to be taken down bluntly without difficulty. I then placed another 5 mm port in the left mid abdomen under direct visualization and using local anesthetic. We checked for any bleeding of the omentum. There was none. The patient was then placed in Trendelenburg with the right side slightly elevated. I evacuated small intestine out of the pelvis and using a laparotomy sponge I kept this in place. The distal ileum and cecum were elevated. I started dissection in the mesentery of the distal ileum using the Harmonic scalpel. Virtually all dissection was done with the Harmonic scalpel. I entered the retroperitoneum and saw the duodenum. Keeping the duodenum and right kidney posterior, I established a retroperitoneal plane and dissected the mesenteric vessels anteriorly in a medial to lateral type mobilization. I continued this dissection in the retroperitoneum up to the transverse mesocolon. I then divided the mesentery of the distal ileum up to the edge of the bowel. This was also done with the Harmonic scalpel. I then dissected out the ileocolic artery. I used the Harmonic 7 and divided the vessels of the ileocolic artery. This went well and no bleeding occurred. I continued to divide the mesentery to the ascending colon up to near the hepatic flexure. I then turned my attention to the lateral peritoneal attachments of the ascending colon and divided these with the Harmonic scalpel up to the hepatic flexure and hepatocolic ligament. The patient was taken out of some of the Trendelenburg. The hepatocolic ligament was exposed. This was divided with the Harmonic scalpel rounding the corner of the hepatic flexure. I carefully stayed away from the stomach. After dividing most of the hepatocolic ligament, I then exposed the transverse colon mesentery. Placing anterior retraction on the transverse colon I was able to expose the root of the transverse colon mesentery well. I used the Harmonic scalpel and divided the transverse colon mesentery up to and beyond the left branch of the middle colic artery. This gave excellent mobilization of the entire right colon and most of the transverse colon. We stopped insufflation and removed the GelPort. I eviscerated the terminal ileum and ascending colon and at least 75% of the transverse colon. I looked at the ascending colon and the tumor was not readily evident. There did seem to be a polyp in the proximal to mid ascending colon that would correspond to the location seen at colonoscopy. I carefully checked all of the ascending colon as well as the hepatic flexure and over 3/4 of the transverse colon. I saw no other signs of a tumor. I concluded that the polyp noted must be the tumor. I used the Harmonic scalpel and divided the transverse colon mesentery up to the mid transvers
--- NOTE | 2019-07-27 14:15 | SUR.PHASEI ---
1315 pt not ventilating well on her own. stefanie will and dr murray at bedside pt being bagged. pt [place] not responding to voice commands. 1312 [id number]
--- NOTE | 2019-07-27 14:33 | SUR.PHASEI ---
1330 PT STILL NOT BREATHING WELL ENOUGH ON HER OWN, ANESTHESIA AT [facility], CONTINUING TO BAG PT. PT HAS RECEIVED NARCAN AND OTHER REVERSAL TO TRY AND WAKE PT UP. NASAL AIRWAY PLACED IN LT NARE. 1345 RT CALLED FOR BIPAP. BIPAPA PLACED ON PT. PT DID OK FOR A FEW MINUTES. ANESTHESIA GOING TO INTUBATE. DR HERNANDES AND [place], PATIENT TRANSITION SPECIALIST AT BEDSIDE TO INTUBATE. 1400 PT INTUBATED. GOOD BREATH SOUNDS. CHEST XRAY ORDERED. 1415 PT DOING OK ON VENT, VSS, O2 SAT-100%. 1430 RADIOLOGHY AT BEDSIDE FOR CHEST XRAY FOR ETT TUBE PLACEMENT
[2019-07-27 14:36] LABS: Glucose Point of Care 285 (65-105)
--- NOTE | 2019-07-27 14:55 | SUR.PHASEI ---
1445 PT VSS, TOLERATING THE VENT WELL. PT SEDATED.
--- NOTE | 2019-07-27 14:56 | SUR.PHASEI ---
5093 SBAR FAXED FLOOR NOTIFIED
--- NOTE | 2019-07-27 15:25 | PC.NURSE ---
This patient, Radha Salmeron, was admitted to Intensive Care Unit-9 from PACU. Report received from ANGEL Almanza. Patient/family oriented to hospital policies and general routines including ID bracelet, bed and alarms, visiting hours, pain management, procedures, bathroom and other care routines, personal items, smoking policy, room service/diet, and visiting hours. Valuables list has been completed. Information on how to activate the Rapid Response Team has been discussed. Patient/Family are encouraged to report perceived risks to care and to ask questions if they do not understand what they are told or what they should do.
--- NOTE | 2019-07-27 15:39 | SUR.PHASEI ---
1539 UPDATED DAUGHTER DHARMESH ON P[T CONDITION AND THAT SHE IS IN ICU-9
[2019-07-27] MEDS: LACTATED RINGERS 1,000 ML 80 ML IV CONT (16:13)
--- NOTE | 2019-07-27 16:44 | PM.IMCN ---
Assessment and Plan Assessment and plan (1) Respiratory failure: Code(s): J96.90 - Respiratory failure, unspecified, unspecified whether with hypoxia or hypercapnia Status: Acute Assessment and Plan: The patient had been extubated after surgery but was having some respiratory difficulty. She was Re intubated and is on the ventilator at this time. Her daughter stated that the patient is typically a DNR however this was postop complication and the patient required to be Re intubated postoperatively. Pattern Scratcher has been consulted as well. Please refer to painter and decorator apprentice for ventilator settings. As well as sedation. (2) S/P right hemicolectomy: Code(s): Z90.49 - Acquired absence of other specified parts of digestive tract Status: Acute Assessment and Plan: Please see operative note per Dr. laurent. The patient is on Entereg per surgery (3) Atrial fibrillation with slow ventricular response: Code(s): I48.91 - Unspecified atrial fibrillation Status: Chronic Assessment and Plan: Patient is in AFib with RVR at this time. Her heart rates is in the lower 100s. 100-128. I was told that she did get her Cardizem this morning orally but is also on metoprolol. I did continue with her metoprolol through her OG tube. I also ordered for IV metoprolol as 1 time dose to get her heart rate down. Then we can resume her home medications. (4) Type 2 diabetes mellitus with hyperglycemia, with long-term current use of insulin: Code(s): E11.65 - Type 2 diabetes mellitus with hyperglycemia; Z79.4 - custodial (current) use of insulin Status: Chronic Assessment and Plan: Will do Accu-Cheks Q 6 hours as well as a sliding scale. (5) CKD (chronic kidney disease) stage 4, GFR 15-29 ml/min: Code(s): N18.4 - Chronic kidney disease, stage 4 (severe) Status: Chronic Assessment and Plan: Check labs in the a.m.. She is being hydrated at this time. We can also check labs tonight. (6) Hypertensive heart disease with heart failure: Code(s): I11.0 - Hypertensive heart disease with heart failure Status: Acute Assessment and Plan: Patient is on metoprolol as well as diltiazem oral. Have been continued per surgery team. (7) Severe obstructive sleep apnea: Code(s): G47.33 - Obstructive sleep apnea (adult) (pediatric) Status: Chronic Assessment and Plan: The patient is already intubated and on a ventilator. She will need a CPAP when she is on the ventilator. (8) Congestive heart failure: Qualifiers: Heart failure type: diastolic Heart failure chronicity: chronic Qualified Code(s): I50.32 - Chronic diastolic (congestive) heart failure Code(s): I50.9 - Heart failure, unspecified Status: Chronic Assessment and Plan: Patient's last echo was reported on 01/04/2019 with the EF of 56%. She is on metoprolol and Lasix which have been continued per surgery. Her Zaroxolyn has also been reordered per surgery. HPI Data of Consult Consult date: 07/27/19 Requesting Physician: Brandon Laurent MD Primary Care Provider: Gabriel Jruado MD Consult Narrative Narrative: Radha Salmeron is a 84 year old female who I had the pleasure meeting back in March of this year. The patient was found to be hemo positive at that time and we did consult GI at that time. The patient was found to have a right colon mass that was suspicious for malignancy. At the time she and her daughter discussed this in they did not want to removed however the patient has been following with oncology the mass was found by Dr. Perales on 03/17/2019. 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 CEA is 3.6. On 07/25/2019 the patient was seen in surgical office and discussed the surgery. Patient was then prepped for hand assisted laparoscopic right colectomy. Today the patient underwent a hand assisted laparoscopic rig
[2019-07-27] MEDS: METOPROLOL TARTRATE INJ 5 MG/5 ML VIAL IV PUSH (17:26)
[2019-07-27] MEDS: OPTI-GEN TAB 1 TABLET PO (17:27)
[2019-07-27] MEDS: IBUPROFEN IV 800 MG/200 ML 800 MG/200 ML BAG 400 MG IVPB ×2 (17:27→23:26)
[2019-07-27] MEDS: FUROSEMIDE 40 MG TABLET PO (17:28)
[2019-07-27] MEDS: INSULIN ASPART (*BKC) 100 UNITS/ML SUB-Q ×2 (17:33→23:24)
[2019-07-27 17:34] LABS: Glucose Point of Care 316 (65-105)
[2019-07-27 19:07] LABS: Basophils Percent Auto 0.2 % (0.2-1.2); Hematocrit 39.4 % (37.0-47.0); Hemoglobin 12.8 g/dL (12.0-15.0); Immature Granulocyte Absolute 0.06 K/mm3 (0.00-0.031); Immature Granulocyte Percent A 0.5 % (0-0.5); Lymphocytes Absolute Auto 0.64 K/mm3 (0.9-3.2); Lymphocytes Percent Auto 4.8 % (18.3-44.2); Mean Corpuscular HGB Conc 32.5 g/dl (32-36); Mean Corpuscular Hemoglobin 28.4 pg (26-34); Mean Corpuscular Volume 87.4 fl (80-100); Mean Platelet Volume 10.4 fl (7.4-10.4); Monocytes Absolute Auto 0.7 K/mm3 (0.1-0.6); Monocytes Percent Auto 5.2 % (2.6-8.5); Neutrophils Absolute Auto 11.9 K/mm3 (1.3-6.7); Neutrophils Percent Auto 89.3 % (45.5-73.1); Platelet Count Result 175 k/mm3 (150-375); Red Blood Count 4.51 M/mm3 (4.2-5.4); Red Cell Distribution Width 16.5 % (11.5-14.5); White Blood Count 13.3 K/mm3 (4.5-10.0)
[2019-07-27 19:19] LABS: Alanine Aminotransferase 13 U/L (4-35); Albumin Level 3.4 g/dL (3.5-5.1); Alkaline Phosphatase 117 U/L (38-126); Aspartate Amino Transferase 27 U/L (14-36); Bilirubin,Total 2.4 mg/dL (0.2-1.3); Blood Urea Nitrogen 49 mg/dL (7-17); Calcium 8.5 mg/dL (8.4-10.2); Carbon Dioxide 28 mmol/L (22-30); Chloride 96 mmol/L (98-107); Estimated CRCL calculation 26 ml/min; Estimated Glomerular Filt Rate 33; Glucose 340 mg/dL (65-105); Potassium 3.1 mmol/L (3.4-5.0); Sodium 134 mmol/L (137-145)
[2019-07-27 19:25] LABS: Hemoglobin A1C 7.9 % (<5.7)
[2019-07-27] MEDS: MAGNESIUM SULF 2 GM/WATER 50ML 2 GM/50 ML BAG IVPB (20:37)
[2019-07-27] MEDS: KCL 20 MEQ/SW 100 ML 100 ML 50 MEQ IVPB (20:37)
[2019-07-27] MEDS: METOPROLOL TARTRATE 50 MG TAB PO (20:38)
[2019-07-27] MEDS: ACETAMINOPHEN 500 MG TABLET 1000 MG PO (20:38)
[2019-07-27] MEDS: ENOXAPARIN 30 MG/0.3 ML SYRINGE SUB-Q (20:38)
[2019-07-27 23:30] LABS: Glucose Point of Care 304 (65-105)
[2019-07-28] VITALS (14 sets, daily range): BP systolic 107–127; BP diastolic 52–81; PULSE 72–109; RESP 16–22; TEMP 36.1–36.5; O2SAT 96–100; BMI 33.0
[2019-07-28] MEDS: ACETAMINOPHEN 500 MG TABLET 1000 MG PO ×4 (03:21→21:49)
[2019-07-28 04:46] LABS: Base Excess ABG 2.1 mEq/l (+/-2.0); PCO2 ABG 38.4 mmHg (35.0-45.0); PO2 ABG 122.5 mmHg (80.0-100.0); Total Hemoglobin 14.9 g/dL (12.0-18.0); pH ABG 7.449 (7.350-7.450)
[2019-07-28 04:47] LABS: Alveolar/Arterial O2 Gradient 118.5 mmHg; Oxygen Content ABG 20.5 %vol (16.0-22.0); Oxygen Saturation ABG 98.6 % (95.0-100.0)
[2019-07-28 04:48] LABS: Carboxyhemoglobin 0.4 % THb (0-2.0); Device VENTILATOR; Fractional Inspired Oxygen 40 %; Methemoglobin ABG 0.3 %THb (0-1.5); Modified Allen's Test Pass; Oxyhemoglobin 97.2 % THb (90.0-100.0); PO2 FiO2 Ratio Arterial Blood 3.06 %; Reduced Hemoglobin 2.1 %THb (0-5.0); Site Drawn RIGHT RADIAL
[2019-07-28 04:49] LABS: Arterial Blood Gas PEEP 5 cmH2O; Arterial Blood Gas Vent Mode CMV; Arterial Blood Gas Ventilator rate 15 /MIN
[2019-07-28 04:50] LABS: Arterial Blood Gas Tidal Volume 370 ml
[2019-07-28 04:50] LABS: Basophils Percent Auto 0.1 % (0.2-1.2); Hematocrit 44.3 % (37.0-47.0); Hemoglobin 14.7 g/dL (12.0-15.0); Immature Granulocyte Absolute 0.06 K/mm3 (0.00-0.031); Immature Granulocyte Percent A 0.4 % (0-0.5); Lymphocytes Absolute Auto 1.25 K/mm3 (0.9-3.2); Lymphocytes Percent Auto 9.3 % (18.3-44.2); Mean Corpuscular HGB Conc 33.2 g/dl (32-36); Mean Corpuscular Hemoglobin 28.2 pg (26-34); Mean Platelet Volume 10.7 fl (7.4-10.4); Monocytes Absolute Auto 0.9 K/mm3 (0.1-0.6); Monocytes Percent Auto 6.4 % (2.6-8.5); Neutrophils Absolute Auto 11.3 K/mm3 (1.3-6.7); Neutrophils Percent Auto 83.8 % (45.5-73.1); Platelet Count Result 202 k/mm3 (150-375); Red Blood Count 5.21 M/mm3 (4.2-5.4); Red Cell Distribution Width 16.3 % (11.5-14.5); White Blood Count 13.5 K/mm3 (4.5-10.0)
[2019-07-28 05:13] LABS: Blood Urea Nitrogen 48 mg/dL (7-17); Calcium 8.8 mg/dL (8.4-10.2); Carbon Dioxide 27 mmol/L (22-30); Chloride 95 mmol/L (98-107); Estimated CRCL calculation 29 ml/min; Estimated Glomerular Filt Rate 39; Glucose 320 mg/dL (65-105); Potassium 2.6 mmol/L (3.4-5.0); Sodium 134 mmol/L (137-145)
[2019-07-28 05:25] LABS: Magnesium 1.6 mg/dL (1.6-2.3)
[2019-07-28] MEDS: IBUPROFEN IV 800 MG/200 ML 800 MG/200 ML BAG 400 MG IVPB ×4 (05:42→23:57)
[2019-07-28] MEDS: INSULIN ASPART (*BKC) 100 UNITS/ML SUB-Q ×3 (05:58→22:11)
[2019-07-28] MEDS: POTASSIUM CHLORIDE 20 MEQ TABLET 40 MEQ PO ×3 (07:51→17:24)
[2019-07-28] MEDS: ENOXAPARIN 30 MG/0.3 ML SYRINGE SUB-Q ×2 (07:51→21:49)
[2019-07-28] MEDS: OPTI-GEN TAB 1 TABLET PO ×2 (07:52→17:23)
[2019-07-28] MEDS: METOPROLOL TARTRATE 50 MG TAB PO ×2 (07:52→21:49)
[2019-07-28] MEDS: LORATADINE 10 MG TABLET PO (07:52)
[2019-07-28] MEDS: MAGNESIUM OXIDE 400 MG TABLET PO (07:52)
[2019-07-28] MEDS: PANTOPRAZOLE 40 MG TABLET PO (07:52)
[2019-07-28] MEDS: FUROSEMIDE 40 MG TABLET PO ×2 (07:52→17:23)
[2019-07-28] MEDS: FERROUS SULFATE 324 MG TABLET PO (07:53)
[2019-07-28] MEDS: LACTATED RINGERS 1,000 ML 80 ML IV CONT ×2 (08:14→21:48)
--- NOTE | 2019-07-28 09:03 | WPDANESPN ---
Anes - Prog Note Post-Op Date/Time: 07/28/19 09:03 Cardiovascular status: other (ICU/VENT) Respiratory status: other (ICU/VENT) Airway patency: other (ICU/VENT) Mental status: other (VENT) Post-Op hydration status: other Vital Signs: Last Vital Signs Temp 36.1 C L 07/28/19 03:41 Pulse 92 07/28/19 07:52 Resp 22 H 07/28/19 05:48 BP 127/69 07/28/19 05:48 Pulse Ox 100 07/28/19 05:48 I/O: Intake & Output 07/27/19 07/28/19 07/28/19 23:59 07:59 15:59 Intake Total 350 1400 150 Output Total 850 Balance 350 550 150 Laboratory Tests 07/28/19 04:17 07/28/19 04:17 07/27/19 07/27/19 07/27/19 09:07 13:11 17:30 WBC RBC Hgb Hct MCV MCH MCHC RDW Plt Count MPV Immature Gran % (Auto) Neut % (Auto) Lymph % (Auto) [place] % (Auto) Eos % (Auto) Baso % (Auto) Lymph # (Auto) [place] # (Auto) Eos # (Auto) Baso # (Auto) Abs Immat Gran (auto) Absolute Neuts (auto) Absolute Nucleated RBC Nucleated RBC % Puncture Site ABG pH ABG pCO2 ABG pO2 ABG PO2/FiO2 Ratio ABG HCO3 ABG O2 Saturation ABG O2 Content ABG Base Excess A-a Gradient Oxyhemoglobin Carboxyhemoglobin Methemoglobin Reduced Hemoglobin Total Hemoglobin O2 Delivery Device O2 Liters/Min Minute Volume Vent Rate Vent Mode FiO2 Tidal Volume PEEP Peak Inspir Pressure Pressure Support Sodium Potassium Chloride Carbon Dioxide BUN Creatinine Estim Creat Clear Calc Estimated GFR Glucose POC Capillary Glucose 262 H 285 H 316 H Hemoglobin A1c Calcium Magnesium Total Bilirubin AST ALT Alkaline Phosphatase Total Protein Albumin 07/27/19 07/27/19 07/27/19 19:02 19:02 19:02 WBC 13.3 H RBC 4.51 Hgb 12.8 Hct 39.4 MCV 87.4 MCH 28.4 MCHC 32.5 RDW 16.5 H Plt Count 175 MPV 10.4 Immature Gran % (Auto) 0.5 Neut % (Auto) 89.3 H Lymph % (Auto) 4.8 L [place] % (Auto) 5.2 Eos % (Auto) 0.0 Baso % (Auto) 0.2 Lymph # (Auto) 0.64 L [place] # (Auto) 0.7 H Eos # (Auto) 0.0 Baso # (Auto) 0.0 Abs Immat Gran (auto) 0.06 H Absolute Neuts (auto) 11.9 H Absolute Nucleated RBC 0.0 Nucleated RBC % 0.0 Puncture Site ABG pH ABG pCO2 ABG pO2 ABG PO2/FiO2 Ratio ABG HCO3 ABG O2 Saturation ABG O2 Content ABG Base Excess A-a Gradient Oxyhemoglobin Carboxyhemoglobin Methemoglobin Reduced Hemoglobin Total Hemoglobin O2 Delivery Device O2 Liters/Min Minute Volume Vent Rate Vent Mode FiO2 Tidal Volume PEEP Peak Inspir Pressure Pressure Support Sodium 134 L Potassium 3.1 L Chloride 96 L Carbon Dioxide 28 BUN 49 H D Creatinine 1.50 H Estim Creat Clear Calc 26 Estimated GFR 33 L Glucose 340 H POC Capillary Glucose Hemoglobin A1c 7.9 H Calcium 8.5 Magnesium Total Bilirubin 2.4 H AST 27 ALT 13 Alkaline Phosphatase 117 Total Protein 7.0 Albumin 3.4 L 07/27/19 07/27/19 07/28/19 19:02 23:22 04:17 WBC 13.5 H RBC 5.21 Hgb 14.7 Hct 44.3 MCV 85.0 MCH 28.2 MCHC 33.2 RDW 16.3 H Plt Count 202 MPV 10.7 H Immature Gran % (Auto) 0.4 Neut % (Auto) 83.8 H Lymph % (Auto) 9.3 L [place] % (Auto) 6.4 Eos % (Auto) 0.0 Baso % (Auto) 0.1 L Lymph # (Auto) 1.25 [place] # (Auto) 0.9 H Eos # (Auto) 0.0 Baso # (Auto) 0.0 Abs Immat Gran (auto) 0.06 H Absolute Neuts (auto) 11.3 H Absolute Nucleated RBC 0.0 Nucleated RBC % 0.0 Puncture Site ABG pH ABG pCO2 ABG pO2 ABG PO2/FiO2 Ratio ABG HCO3 ABG O2 Saturation ABG O2 Content ABG Base Excess A-a Gradient Oxyhemoglobin Carboxyhemoglobin Methemoglobin Reduced Hemoglobin Total Hemoglob
[2019-07-28 09:21] LABS: Alveolar/Arterial O2 Gradient 118.5 mmHg; Base Excess ABG 1.7 mEq/l (+/-2.0); Fractional Inspired Oxygen 40 %; HCO3 ABG 25.2 mEq/l (22.0-26.0); Oxygen Content ABG 20.2 %vol (16.0-22.0); Oxygen Saturation ABG 98.6 % (95.0-100.0); Oxyhemoglobin 97.6 % THb (90.0-100.0); PCO2 ABG 36.4 mmHg (35.0-45.0); PO2 ABG 124.8 mmHg (80.0-100.0); PO2 FiO2 Ratio Arterial Blood 3.12 %; Total Hemoglobin 14.6 g/dL (12.0-18.0); pH ABG 7.459 (7.350-7.450)
[2019-07-28 09:22] LABS: Device VENTILATOR; Modified Allen's Test Pass; Site Drawn RIGHT RADIAL
[2019-07-28 09:23] LABS: Arterial Blood Gas PEEP 5 cmH2O; Arterial Blood Gas Pressure Support 8 cmH2O; Arterial Blood Gas Vent Mode SPONTANEOUS
--- NOTE | 2019-07-28 10:58 | PC.NURSE ---
Patient extubated around 0940. OG tube and restraints removed as well. Pt. on 2LNC. No signs of distress at this time. Will continue to monitor.
[2019-07-28] MEDS: MAGNESIUM SULF 2 GM/WATER 50ML 2 GM/50 ML BAG IVPB (11:00)
--- NOTE | 2019-07-28 11:02 | PCDIET ---
Patient now extubated; remains NPO. Expect diet to advance as tolerated once appropriate, per surgery. Will follow up in 3 days, as scheduled previously.
--- NOTE | 2019-07-28 12:01 | PM.PNGS ---
Progress Note: A&P Assessment and Plan (1) Primary adenocarcinoma of ascending colon: Code(s): C18.2 - Malignant neoplasm of ascending colon Status: Chronic Assessment and Plan: Patient doing well after hand access laparoscopic right hemicolectomy done yesterday. She has been extubated and vitals are normal. I will go ahead and transfer her to the medical-surgical floor. She will get up today and start on liquids. I will leave her Wilkerson catheter until tomorrow. Appreciate hospitalist consultation and assistance in managing her postoperative care. (2) Respiratory failure: Code(s): J96.90 - Respiratory failure, unspecified, unspecified whether with hypoxia or hypercapnia Status: Resolved Assessment and Plan: Extubated this morning and doing quite well. Most likely due to prolonged anesthetic affect. (3) Chronic kidney disease, stage IV (severe): Code(s): N18.4 - Chronic kidney disease, stage 4 (severe) Status: Chronic Assessment and Plan: Stable (4) Type 2 diabetes mellitus with hyperglycemia, with long-term current use of insulin: Code(s): E11.65 - Type 2 diabetes mellitus with hyperglycemia; Z79.4 - detention (current) use of insulin Status: Chronic Assessment and Plan: Continue to monitor blood sugars. Hospitalist management appreciated. (5) WIN (iron deficiency anemia): Code(s): D50.9 - Iron deficiency anemia, unspecified Status: Acute Assessment and Plan: Continue iron supplementation. (6) Hypertensive heart disease with heart failure: Code(s): I11.0 - Hypertensive heart disease with heart failure Status: Acute Subjective Subjective Date/Time Seen: 07/28/19 12:01 Post Op day: 1 Patient reports: no new complaints, feels better (Awake and extubated this morning), pain is less (No complaints of pain) and afebrile Review of Systems Review of Systems: All systems reviewed & are unremarkable except as noted in HPI and below Constitutional: Constitutional: Denies headache(s) Cardiovascular: Cardiovascular: Denies chest pain and Denies dyspnea Respiratory: Respiratory: Denies cough and Denies dyspnea Gastrointestinal: Gastrointestinal: Reports as per HPI Exam Const: General: comfortable, no acute distress, alert, awake and confusion Nutritional Appearance: well nourished Orientation/consciousness: No oriented to person, oriented to place, No oriented to time and confusion Resp: Effort & Inspection: normal respiratory effort Auscultation: clear to auscultation bilaterally Cardio: Jugular venous distension: no JVD Rate: regular rate Rhythm: abnormal rhythm irregularly irregular GI: Inspection: non-distended and incision (Dry and intact, healing) GI Palp: Yes Soft to palpation, Yes Tenderness to palpation present (GI) (Minimal), No Guarding due to palpation present (GI) and No Rebound tenderness present Auscultation: Hypoactive bowel sounds present Neuro: General: No oriented to person, oriented to place, No oriented to time and CN's II-XI intact bilaterally Cranial nerves: Yes facial symmetry, Yes Midline tongue present and Yes hard of hearing Speech: normal speech Motor exam (neuro): Normal motor muscle tone present throughout Extrem: General: no calf tenderness and no edema Psych: Speech and movement: Clear speech present Affect: normal affect Attitude: cooperative Thought process: Illogical thought process present Insight: Limited insight present (Psych) Judgement: Limited judgement present (Psych) Objective Data Vital Signs Vital Signs: Vital Signs - 24 hr 07/27/19 12:56 07/27/19 13:15 07/27/19 13:30 Temperature 36.2 C L Pulse Rate 114 H 125 H 128 H Respiratory Rate 20 22 H 20 Blood Pressure 139/69 154/97 H 151/101 H Pulse Oximetry 96 92 98 07/27/19 13:40 07/27/19 13:45 07/27/19 13:50 Temperature Pulse Rate 122 H 115 H Respiratory Rate 10 L 26 H Blood Pressure 140/86
[2019-07-28 12:09] LABS: Potassium 3.1 mmol/L (3.4-5.0)
--- NOTE | 2019-07-28 12:13 | WPDCNINT ---
Assessment and Plan Assessment and plan (1) Respiratory failure: Qualifiers: Chronicity: unspecified Respiratory failure complication: unspecified whether with hypoxia or hypercapnia Qualified Code(s): J96.90 - Respiratory failure, unspecified, unspecified whether with hypoxia or hypercapnia Code(s): J96.90 - Respiratory failure, unspecified, unspecified whether with hypoxia or hypercapnia Status: Resolved Assessment and Plan: Likely related to effects of anesthesia, patient was extubated in the PACU but was not ventilating well so had to be reintubated and transferred to the ICU for further management. -chest x-ray and ABGs reviewed, patient has been placed on SBT will evaluate for extubation -not on any sedation (2) S/P right hemicolectomy: Code(s): Z90.49 - Acquired absence of other specified parts of digestive tract Status: Acute Assessment and Plan: Hand assisted laparoscopic right hemicolectomy with ileotransverse anastomosis -surgery following the patient closely -. Start patient is on liquids -PT/OT and up to chair today (3) Hypokalemia: Code(s): E87.6 - Hypokalemia Status: Acute Assessment and Plan: Will replete potassium (4) Hypomagnesemia: Code(s): E83.42 - Hypomagnesemia Status: Acute Assessment and Plan: Will replace magnesium (5) Type 2 diabetes mellitus with hyperglycemia, with long-term current use of insulin: Code(s): E11.65 - Type 2 diabetes mellitus with hyperglycemia; Z79.4 - senior living (current) use of insulin Status: Chronic Assessment and Plan: Hyperglycemia, continue Accu-Cheks and sliding scale insulin on Lantus at home -will order a decreased dose of Lantus (6) DVT prophylaxis: Code(s): Z29.9 - Encounter for prophylactic measures, unspecified Status: Acute Assessment and Plan: Lovenox SQ Additional Plan Discussed with patient updated her with her condition and plan of care. Patient is aware she will be transferring out of the ICU Code status: Full code Critical care time spent: 36 minutes Due to a high probability of clinically significant, life threatening deterioration, the patient required my highest level of preparedness to intervene emergently and I personally spent this critical care time directly and personally managing the patient. This critical care time included obtaining a history; examining the patient; pulse oximetry; ordering and review of studies; arranging urgent treatment with development of a management plan; evaluation of patient's response to treatment; frequent reassessment; and discussions with other providers. It was exclusive of separately billable procedures and treating other patients and teaching time. Please see Assessment and Plan section and the rest of the note for further information on patient assessment and treatment Plant [employer]er Consult Note Consult date: 07/28/19 Time Seen: 07:04 Reason for consult: Status post hand assisted laparoscopic right hemicolectomy with ileotransverse anastomosis, postanesthesia respiratory failure and remains intubated HPI: Radha Salmeron is a 84 year old female with past medical history of anxiety, atrial fibrillation, CKD stage 4, baseline creatinine 1.6-1.9. History of congestive heart failure, echocardiogram on 12/2018 showed EF of 50-56%, severe right ventricular enlargement, severe biatrial enlargement, mild mitral valve regurg, RVSP of 36 mmHg and moderate tricuspid regurg with severe pulmonic regurg. Patient also history of diabetes, history of DVT, essential hypertension, iron deficiency anemia, severe obstructive sleep apnea intolerant to CPAP, history of transient ischemic attacks. Patient had hand assisted laparoscopic right hemicolectomy with ileotransverse anastomosis for severe anemia, colonoscopy performed showed mid ascending colon cancer. Her CT scan was negative for metastatic disease and a CEA leve
[2019-07-28 13:06] LABS: Glucose Point of Care 330 (65-105)
[2019-07-28] MEDS: INSULIN GLARGINE (*BKC) 100 UNITS/ML 10 UNITS SUB-Q (13:09)
[2019-07-28] MEDS: ALVIMOPAN 12 MG CAPSULE PO ×2 (13:10→21:49)
--- NOTE | 2019-07-28 14:24 | PC.NURSE ---
Pt. transferred to 315 on at 1420 via bed accompanied by me. Report called to Ghislaine RN and nurse handoff occurred in room 315. Bed alarm set and bed locked. Pt.'s valuables and belongings all within reach. Call light within reach. Pt. stable upon transfer.
--- NOTE | 2019-07-28 15:23 | PM.IMPN ---
Progress Note: A&P Assessment and Plan (1) Respiratory failure: Qualifiers: Chronicity: unspecified Respiratory failure complication: unspecified whether with hypoxia or hypercapnia Qualified Code(s): J96.90 - Respiratory failure, unspecified, unspecified whether with hypoxia or hypercapnia Code(s): J96.90 - Respiratory failure, unspecified, unspecified whether with hypoxia or hypercapnia Status: Resolved Assessment and Plan: The patient had been extubated after surgery but had some respiratory difficulty. She was Re intubated and is on the ventilator at this time. Anticipate she will be extubated later today (2) S/P right hemicolectomy: Code(s): Z90.49 - Acquired absence of other specified parts of digestive tract Status: Acute Assessment and Plan: Right hemicolectomy and reanastomosis of adenocarcinoma of the colon which was originally diagnosed in March of this year. Patient and family had originally refused any treatment but has subsequently undergone surgery (3) Atrial fibrillation with slow ventricular response: Code(s): I48.91 - Unspecified atrial fibrillation Status: Chronic Assessment and Plan: Patient is in AFib with with controlled ventricular response at this time. Resume her home diltiazem and metoprolol per NG and per Oz when extubated. (4) Type 2 diabetes mellitus with hyperglycemia, with long-term current use of insulin: Code(s): E11.65 - Type 2 diabetes mellitus with hyperglycemia; Z79.4 - intermediate (current) use of insulin Status: Chronic Assessment and Plan: Will do Accu-Cheks Q 6 hours as well as a sliding scale. (5) CKD (chronic kidney disease) stage 4, GFR 15-29 ml/min: Code(s): N18.4 - Chronic kidney disease, stage 4 (severe) Status: Chronic Assessment and Plan: Creatinine 1.3 this a.m. at or just below her baseline (6) Hypertensive heart disease with heart failure: Code(s): I11.0 - Hypertensive heart disease with heart failure Status: Acute Assessment and Plan: Patient is on metoprolol as well as diltiazem oral. Have been continued per surgery team. (7) Severe obstructive sleep apnea: Code(s): G47.33 - Obstructive sleep apnea (adult) (pediatric) Status: Chronic Assessment and Plan: The patient is already intubated and on a ventilator. She will need a CPAP when she is on the ventilator. (8) Congestive heart failure: Qualifiers: Heart failure type: diastolic Heart failure chronicity: chronic Qualified Code(s): I50.32 - Chronic diastolic (congestive) heart failure Code(s): I50.9 - Heart failure, unspecified Status: Chronic Assessment and Plan: Patient's last echo was reported on 01/04/2019 with the EF of 56%. She is on metoprolol and Lasix which have been continued per surgery. Her Zaroxolyn has also been reordered per surgery. Follow electrolytes (9) DVT prophylaxis: Code(s): Z29.9 - Encounter for prophylactic measures, unspecified Status: Acute Assessment and Plan: Lovenox Subjective Date/time seen: 07/28/19 15:23 Interval history: Date of visit 07/27. 84-year-old hypertensive type 2 diabetic chronic AFib underwent elective right hemicolectomy for adenocarcinoma of the colon 07/26. Had respiratory distress postoperatively and had to be Re intubated. At that time white visit she is still on the ventilator but alert awake. Exam Narrative: Exam Narrative: Blood pressure 120/60 pulse is 80 to irregular saturating 96% on mechanical ventilator 35 FiO2 of 5 of peep Pupils equal reactive to light sclera anicteric Lungs clear CV irregular Abdomen soft bowel sounds present with slightly decreased Extremities without edema Neuro alert with no particular focal deficits Objective Data Vital Signs Vital Signs: Vital Signs - 24 hr 07/27/19 15:30 07/27/19 15:45 07/27/19 16:00 Temperature 35.8 C L Pulse R
[2019-07-28] MEDS: INSULIN ASPART (*BKC) 100 UNITS/ML 20 UNITS SUB-Q (17:38)
[2019-07-28 18:15] LABS: Glucose Point of Care 403 (65-105)
[2019-07-28 22:29] LABS: Glucose Point of Care 299 (65-105)
[2019-07-29] VITALS (7 sets, daily range): BP systolic 105–115; BP diastolic 53–84; PULSE 51–95; RESP 16–20; TEMP 36.4–36.6; O2SAT 95–99
[2019-07-29] MEDS: ACETAMINOPHEN 500 MG TABLET 1000 MG PO ×4 (04:06→20:45)
[2019-07-29] MEDS: IBUPROFEN IV 800 MG/200 ML 800 MG/200 ML BAG 400 MG IVPB ×3 (05:52→18:05)
[2019-07-29 06:35] LABS: Basophils Percent Auto 0.1 % (0.2-1.2); Hematocrit 38.8 % (37.0-47.0); Hemoglobin 12.9 g/dL (12.0-15.0); Immature Granulocyte Absolute 0.05 K/mm3 (0.00-0.031); Immature Granulocyte Percent A 0.4 % (0-0.5); Lymphocytes Absolute Auto 1.19 K/mm3 (0.9-3.2); Lymphocytes Percent Auto 9.4 % (18.3-44.2); Mean Corpuscular HGB Conc 33.2 g/dl (32-36); Mean Corpuscular Hemoglobin 27.8 pg (26-34); Mean Corpuscular Volume 83.6 fl (80-100); Mean Platelet Volume 10.5 fl (7.4-10.4); Monocytes Absolute Auto 0.9 K/mm3 (0.1-0.6); Monocytes Percent Auto 7.2 % (2.6-8.5); Neutrophils Absolute Auto 10.5 K/mm3 (1.3-6.7); Neutrophils Percent Auto 82.9 % (45.5-73.1); Platelet Count Result 197 k/mm3 (150-375); Red Blood Count 4.64 M/mm3 (4.2-5.4); Red Cell Distribution Width 16.3 % (11.5-14.5); White Blood Count 12.7 K/mm3 (4.5-10.0)
[2019-07-29 06:45] LABS: Blood Urea Nitrogen 45 mg/dL (7-17); Calcium 8.8 mg/dL (8.4-10.2); Carbon Dioxide 30 mmol/L (22-30); Chloride 97 mmol/L (98-107); Estimated CRCL calculation 32 ml/min; Estimated Glomerular Filt Rate 43; Glucose 161 mg/dL (65-105); Potassium 2.6 mmol/L (3.4-5.0); Sodium 135 mmol/L (137-145)
[2019-07-29] MEDS: POTASSIUM CHLORIDE 20 MEQ TABLET 40 MEQ PO ×3 (09:00→12:50)
[2019-07-29] MEDS: ALVIMOPAN 12 MG CAPSULE PO ×2 (09:01→20:39)
[2019-07-29] MEDS: FUROSEMIDE 40 MG TABLET PO ×2 (09:03→18:03)
[2019-07-29] MEDS: ENOXAPARIN 30 MG/0.3 ML SYRINGE SUB-Q ×2 (09:03→20:39)
[2019-07-29] MEDS: INSULIN GLARGINE (*BKC) 100 UNITS/ML 10 UNITS SUB-Q ×2 (09:03→14:05)
[2019-07-29] MEDS: metOLazone 5 MG TABLET PO (09:07)
[2019-07-29] MEDS: METOPROLOL TARTRATE 50 MG TAB PO ×2 (09:07→20:40)
[2019-07-29] MEDS: FERROUS SULFATE 324 MG TABLET PO (09:07)
[2019-07-29] MEDS: PANTOPRAZOLE 40 MG TABLET PO (09:08)
[2019-07-29] MEDS: MAGNESIUM OXIDE 400 MG TABLET PO (09:08)
[2019-07-29] MEDS: OPTI-GEN TAB 1 TABLET PO ×2 (09:11→18:01)
--- NOTE | 2019-07-29 09:25 | PM.PNGS ---
Progress Note: A&P Assessment and Plan (1) Primary adenocarcinoma of ascending colon: Code(s): C18.2 - Malignant neoplasm of ascending colon Status: Chronic Assessment and Plan: Doing well now postop day 2. Patient no longer confused. Oriented x3. In good spirits and tolerating liquids well. Will DC Wilkerson catheter and advance diet. Ambulate more now. Pathology pending. (2) Atrial fibrillation with slow ventricular response: Code(s): I48.91 - Unspecified atrial fibrillation Status: Chronic Assessment and Plan: Stable (3) Hypokalemia: Code(s): E87.6 - Hypokalemia Status: Acute Assessment and Plan: Being supplemented (4) Type 2 diabetes mellitus with hyperglycemia, with long-term current use of insulin: Code(s): E11.65 - Type 2 diabetes mellitus with hyperglycemia; Z79.4 - group home (current) use of insulin Status: Chronic Assessment and Plan: Appreciate hospitalist care (5) Congestive heart failure: Qualifiers: Heart failure type: diastolic Heart failure chronicity: chronic Qualified Code(s): I50.32 - Chronic diastolic (congestive) heart failure Code(s): I50.9 - Heart failure, unspecified Status: Chronic (6) WIN (iron deficiency anemia): Code(s): D50.9 - Iron deficiency anemia, unspecified Status: Acute Assessment and Plan: Stable (7) Chronic kidney disease, stage IV (severe): Code(s): N18.4 - Chronic kidney disease, stage 4 (severe) Status: Chronic Assessment and Plan: Current creatinine 1.2 and GFR is 43 Subjective Subjective Date/Time Seen: 07/29/19 09:25 Post Op day: 2 Patient reports: no new complaints, feels better, pain is less, tolerating liquids well, no bowel movement and afebrile Review of Systems Review of Systems: All systems reviewed & are unremarkable except as noted in HPI and below Constitutional: Constitutional: Denies headache(s) Cardiovascular: Cardiovascular: Denies chest pain and Denies dyspnea Respiratory: Respiratory: Denies cough and Denies dyspnea Gastrointestinal: Gastrointestinal: Reports as per HPI Neurologic: Denies confusion and Denies headache(s) Exam Const: General: comfortable and no acute distress; No confusion Orientation/consciousness: patient oriented x3 and No confusion Resp: Effort & Inspection: normal respiratory effort Auscultation: clear to auscultation bilaterally GI: Inspection: non-distended and incision (All incisions healing well) GI Palp: Yes Soft to palpation, Yes Tenderness to palpation present (GI) (Minimal tenderness), No Guarding due to palpation present (GI) and No Rebound tenderness present Auscultation: normal bowel sounds Neuro: General: patient oriented x3, no focal motor deficits and No confusion Extrem: General: no calf tenderness and no edema Psych: Affect: normal affect Insight: Good insight present (Psych) Judgement: Good judgement present (Psych) Objective Data Vital Signs Vital Signs: Vital Signs - 24 hr 07/28/19 10:00 07/28/19 14:20 07/28/19 22:00 Temperature 36.3 C L 36.5 C Pulse Rate 81 81 72 Respiratory Rate 21 H 16 16 Blood Pressure 113/71 120/57 L 107/52 L Pulse Oximetry 96 97 100 07/29/19 06:00 07/29/19 08:59 07/29/19 09:06 Temperature 36.6 C Pulse Rate 68 51 L 66 Respiratory Rate 20 18 Blood Pressure 111/65 105/53 L Pulse Oximetry 99 95 07/29/19 09:07 Temperature Pulse Rate 66 Respiratory Rate Blood Pressure Pulse Oximetry Intake/Output Intake/Output: Intake & Output 07/26/19 07/27/19 07/28/19 07/29/19 23:59 23:59 23:59 23:59 Intake Total 400 4170 650 Output Total 225 2800 3200 Balance 175 1370 -2550 Meds/Results Medications: Active Medications Generic Name Dose Route Start Last Admin Trade Name Billq PRN Reason Stop Dose Admin Acetaminophen 1,000 mg 07/27/19 21:00 07/29/19 09:01 Tylenol Tablet PO 1,000 mg Q
[2019-07-29 09:51] LABS: Glucose Point of Care 173 (65-105)
[2019-07-29 12:35] LABS: Glucose Point of Care 325 (65-105)
[2019-07-29] MEDS: LORATADINE 10 MG TABLET PO (12:52)
--- NOTE | 2019-07-29 14:07 | PM.IMPN ---
Progress Note: A&P Assessment and Plan (1) Respiratory failure: Qualifiers: Chronicity: unspecified Respiratory failure complication: unspecified whether with hypoxia or hypercapnia Qualified Code(s): J96.90 - Respiratory failure, unspecified, unspecified whether with hypoxia or hypercapnia Code(s): J96.90 - Respiratory failure, unspecified, unspecified whether with hypoxia or hypercapnia Status: Resolved Assessment and Plan: The patient had been extubated after surgery but had some respiratory difficulty. She was Re intubated and able to be extubated again 07/27 with no respiratory difficulties now. (2) S/P right hemicolectomy: Code(s): Z90.49 - Acquired absence of other specified parts of digestive tract Status: Acute Assessment and Plan: POD #2 Right hemicolectomy and reanastomosis of adenocarcinoma of the colon which was originally diagnosed in March of this year. Patient and family had originally refused any treatment but has subsequently undergone surgery Diet advanced per surgery Path report pending (3) Atrial fibrillation with slow ventricular response: Code(s): I48.91 - Unspecified atrial fibrillation Status: Chronic Assessment and Plan: Patient is in AFib with with controlled ventricular response at this time. Resumed her home diltiazem and metoprolol now (4) Type 2 diabetes mellitus with hyperglycemia, with long-term current use of insulin: Code(s): E11.65 - Type 2 diabetes mellitus with hyperglycemia; Z79.4 - correction (current) use of insulin Status: Chronic Assessment and Plan: ss and restart lantus 20 U today with increased diet (5) CKD (chronic kidney disease) stage 4, GFR 15-29 ml/min: Code(s): N18.4 - Chronic kidney disease, stage 4 (severe) Status: Chronic Assessment and Plan: Creatinine 1.2 this a.m. at or just below her baseline (6) Hypertensive heart disease with heart failure: Code(s): I11.0 - Hypertensive heart disease with heart failure Status: Acute Assessment and Plan: Patient is on metoprolol as well as diltiazem oral. Have been continued per surgery team. (7) Severe obstructive sleep apnea: Code(s): G47.33 - Obstructive sleep apnea (adult) (pediatric) Status: Chronic Assessment and Plan: She will need a CPAP now that she is off the ventilator. (8) Congestive heart failure: Qualifiers: Heart failure chronicity: chronic Heart failure type: diastolic Qualified Code(s): I50.32 - Chronic diastolic (congestive) heart failure Code(s): I50.9 - Heart failure, unspecified Status: Chronic Assessment and Plan: Patient's last echo was reported on 01/04/2019 with the EF of 56%. She is on metoprolol and Lasix which have been continued per surgery. Her Zaroxolyn has also been reordered per surgery. Follow electrolytes K 2.6 and extra K ordered and repeat this afternoon faint basal crackles , incentive spirometry and her diuretics. (9) DVT prophylaxis: Code(s): Z29.9 - Encounter for prophylactic measures, unspecified Status: Acute Assessment and Plan: Lovenox Subjective Date/time seen: 07/29/19 14:07 Interval history: Date of visit 07/28. 84-year-old hypertensive type 2 diabetic chronic AFib underwent elective right hemicolectomy for adenocarcinoma of the colon 07/26. Had respiratory distress postoperatively and had to be Re intubated. Extubated 07/27 and doing well now, no sob and tolerating diet Exam Narrative: Exam Narrative: Blood pressure 106/52 pulse is 66 irregular saturating 96% RA Pupils equal reactive to light sclera anicteric Lungs faint post basilar crackles CV irregular Abdomen soft bowel sounds present Extremities without edema, ac wrapped Neuro alert with no particular focal deficits Objective Data Vital Signs Vital Signs: Vital Signs - 24 hr 07/28/19 14:20 07/28/19 22:00 07/29/19
[2019-07-29] MEDS: INSULIN ASPART (*BKC) 100 UNITS/ML SUB-Q ×3 (14:25→20:46)
[2019-07-29 17:22] LABS: Blood Urea Nitrogen 44 mg/dL (7-17); Calcium 8.6 mg/dL (8.4-10.2); Carbon Dioxide 30 mmol/L (22-30); Chloride 96 mmol/L (98-107); Estimated CRCL calculation 32 ml/min; Estimated Glomerular Filt Rate 43; Glucose 295 mg/dL (65-105); Potassium 4.3 mmol/L (3.4-5.0); Sodium 132 mmol/L (137-145)
[2019-07-29 18:43] LABS: Glucose Point of Care 251 (65-105)
--- NOTE | 2019-07-29 18:49 | PC.NURSE ---
@1800 this nurse called the daughter per request to update her with the [address] Bonilla and the daughter were notified.
[2019-07-30] VITALS (9 sets, daily range): BP systolic 105–123; BP diastolic 58–71; PULSE 60–88; RESP 16–18; TEMP 36.2–36.3; O2SAT 94–97
[2019-07-30] MEDS: IBUPROFEN IV 800 MG/200 ML 800 MG/200 ML BAG 400 MG IVPB ×2 (00:04→05:43)
[2019-07-30 01:02] LABS: Glucose Point of Care 231 (65-105)
[2019-07-30] MEDS: ACETAMINOPHEN 500 MG TABLET 1000 MG PO ×2 (02:23→08:22)
[2019-07-30 06:34] LABS: Basophils Percent Auto 0.2 % (0.2-1.2); Eosinophils Absolute Auto 0.1 K/mm3 (0-0.3); Eosinophils Percent Auto 0.7 % (0-4.4); Hematocrit 37.7 % (37.0-47.0); Hemoglobin 12.3 g/dL (12.0-15.0); Immature Granulocyte Absolute 0.02 K/mm3 (0.00-0.031); Immature Granulocyte Percent A 0.2 % (0-0.5); Lymphocytes Absolute Auto 1.74 K/mm3 (0.9-3.2); Lymphocytes Percent Auto 21.4 % (18.3-44.2); Mean Corpuscular HGB Conc 32.6 g/dl (32-36); Mean Corpuscular Hemoglobin 27.9 pg (26-34); Mean Corpuscular Volume 85.5 fl (80-100); Mean Platelet Volume 10.4 fl (7.4-10.4); Monocytes Percent Auto 11.7 % (2.6-8.5); Neutrophils Absolute Auto 5.3 K/mm3 (1.3-6.7); Neutrophils Percent Auto 65.8 % (45.5-73.1); Platelet Count Result 189 k/mm3 (150-375); Red Blood Count 4.41 M/mm3 (4.2-5.4); Red Cell Distribution Width 16.8 % (11.5-14.5); White Blood Count 8.1 K/mm3 (4.5-10.0)
[2019-07-30 06:51] LABS: Albumin Level 3.1 g/dL (3.5-5.1); Blood Urea Nitrogen 42 mg/dL (7-17); Calcium 8.5 mg/dL (8.4-10.2); Carbon Dioxide 32 mmol/L (22-30); Chloride 97 mmol/L (98-107); Estimated CRCL calculation 32 ml/min; Estimated Glomerular Filt Rate 43; Glucose 160 mg/dL (65-105); Phosphorus 3.7 mg/dL (2.5-4.5); Potassium 2.9 mmol/L (3.4-5.0); Sodium 134 mmol/L (137-145)
[2019-07-30] MEDS: POTASSIUM CHLORIDE 20 MEQ TABLET 40 MEQ PO ×2 (08:11→08:16)
[2019-07-30] MEDS: FERROUS SULFATE 324 MG TABLET PO (08:13)
[2019-07-30] MEDS: ENOXAPARIN 30 MG/0.3 ML SYRINGE SUB-Q ×2 (08:14→20:01)
[2019-07-30] MEDS: ALVIMOPAN 12 MG CAPSULE PO (08:14)
[2019-07-30] MEDS: MAGNESIUM OXIDE 400 MG TABLET PO (08:15)
[2019-07-30] MEDS: OPTI-GEN TAB 1 TABLET PO ×2 (08:15→17:31)
[2019-07-30] MEDS: PANTOPRAZOLE 40 MG TABLET PO (08:15)
[2019-07-30] MEDS: LORATADINE 10 MG TABLET PO (08:15)
[2019-07-30] MEDS: FUROSEMIDE 40 MG TABLET PO ×2 (08:15→17:32)
[2019-07-30] MEDS: METOPROLOL TARTRATE 50 MG TAB PO ×2 (08:16→20:01)
[2019-07-30] MEDS: INSULIN GLARGINE (*BKC) 100 UNITS/ML 20 UNITS SUB-Q (08:22)
[2019-07-30 09:41] LABS: Glucose Point of Care 144 (65-105)
--- NOTE | 2019-07-30 11:17 | PM.PNGS ---
Progress Note: A&P Assessment and Plan (1) Primary adenocarcinoma of ascending colon: Code(s): C18.2 - Malignant neoplasm of ascending colon Status: Chronic Assessment and Plan: doing well postop day 3. Confusion has completely resolved. She is able to ambulate with a walker and some assistance. She diuresed yet well yesterday with Bumex. She is eating well and I will advance her to a regular diabetic diet. I spoke with the hospitalist, , and if patient continues to improve she should probably be okay to discharge tomorrow. (2) Hypokalemia: Code(s): E87.6 - Hypokalemia Status: Acute Assessment and Plan: Potassium still 2.6 today despite 40 mEq t.i.d.. She is getting 40 mg of Lasix b.i.d. and we are barely keeping up. Continue potassium replacement. (3) Atrial fibrillation with slow ventricular response: Code(s): I48.91 - Unspecified atrial fibrillation Status: Chronic Assessment and Plan: No symptoms. (4) Type 2 diabetes mellitus with hyperglycemia, with long-term current use of insulin: Code(s): E11.65 - Type 2 diabetes mellitus with hyperglycemia; Z79.4 - skilled nursing (current) use of insulin Status: Chronic Assessment and Plan: Blood sugars better this morning, around 160. Subjective Subjective Date/Time Seen: 07/30/19 11:17 Post Op day: 3 Patient reports: no new complaints, feels better, pain is less, tolerating liquids well, bowel movement and afebrile Exam GI: Inspection: non-distended and incision ( All incisions healing well) GI Palp: Yes Soft to palpation and Yes Tenderness to palpation present (GI) ( mild incisional tenderness) Auscultation: normal bowel sounds Neuro: General: patient oriented x3 Cognition (Neuro): normal cognition Speech: normal speech Extrem: General: pedal edema present and no calf tenderness bilaterally Objective Data Vital Signs Vital Signs: Vital Signs - 24 hr 07/29/19 14:00 07/29/19 20:40 07/29/19 21:09 Temperature 36.4 C 36.5 C Pulse Rate 94 95 95 Respiratory Rate 18 16 Blood Pressure 115/84 105/66 Pulse Oximetry 97 96 07/30/19 06:00 07/30/19 08:10 07/30/19 08:16 Temperature 36.2 C L Pulse Rate 88 81 81 Respiratory Rate 18 18 Blood Pressure 123/68 119/71 Pulse Oximetry 94 97 07/30/19 08:27 Temperature Pulse Rate Respiratory Rate Blood Pressure Pulse Oximetry 95 Intake/Output Intake/Output: Intake & Output 07/27/19 07/28/19 07/29/19 07/30/19 23:59 23:59 23:59 23:59 Intake Total 400 4170 3015 1010 Output Total 225 2800 4200 1650 Balance 175 1829 -0151 -272 Meds/Results Medications: Active Medications Generic Name Dose Route Start Last Admin Trade Name Freq PRN Reason Stop Dose Admin Acetaminophen 500 mg 07/29/19 09:22 Tylenol Tablet PO Q6H PRN Mild Pain (1-3) or Fever Hydrocodone Bitart/Acetaminophen 0.5 tab 07/29/19 09:22 [place] 5-325 Mg PO Q4H PRN Pain Rated 4-6 Hydrocodone Bitart/Acetaminophen 1 tab 07/29/19 09:22 [place] 5-325 Mg PO Q4H PRN Pain Rated 7-10 Dextrose 12.5 gm 07/27/19 17:06 Dextrose 50% Syringe IV PUSH PRN PRN Hypoglycemia Protocol Diltiazem HCl 120 mg 07/28/19 09:00 07/30/19 08:14 Cardizem Cd PO 120 mg QAM LIO Administration Enoxaparin Sodium 30 mg 07/27/19 21:00 07/30/19 08:14 Lovenox SUB-Q 30 mg Q12HR LIO Administration Fentanyl Citrate 25 mcg 07/27/19 15:17 Sublimaze IV PUSH Q2H PRN Pain Rated 7-10 Fentanyl Citrate 12.5 mcg 07/27/19 15:17 Sublimaze IV PUSH Q2H PRN Pain Rated 4-6 Ferrous Sulfate 324 mg 07/28/19 08:00 07/30/19 08:13 Ferrous Sulfate PO 324 mg DAILY@0800 LIO Administration Furosemide 40 mg 07/27/19 17:00 07/30/19 08:15 Lasix Tablet PO 40 mg BID LIO Administration Glucagon 1 mg 07/27/19 17:06 Glucagon For Inj IM PRN PRN Hypoglyce
[2019-07-30 13:08] LABS: Glucose Point of Care 152 (65-105)
[2019-07-30] MEDS: POTASSIUM CHLORIDE 10 MEQ TABLET 40 MEQ PO ×2 (14:33→17:31)
--- NOTE | 2019-07-30 14:43 | PM.IMPN ---
Progress Note: A&P Assessment and Plan (1) Respiratory failure: Qualifiers: Chronicity: unspecified Respiratory failure complication: unspecified whether with hypoxia or hypercapnia Qualified Code(s): J96.90 - Respiratory failure, unspecified, unspecified whether with hypoxia or hypercapnia Code(s): J96.90 - Respiratory failure, unspecified, unspecified whether with hypoxia or hypercapnia Status: Resolved Assessment and Plan: The patient had been extubated after surgery but had some respiratory difficulty. She was Re intubated and able to be extubated again 07/27 with no respiratory difficulties now. saturating well room air (2) S/P right hemicolectomy: Code(s): Z90.49 - Acquired absence of other specified parts of digestive tract Status: Acute Assessment and Plan: POD #3 Right hemicolectomy and reanastomosis of adenocarcinoma of the colon which was originally diagnosed in March of this year. Patient and family had originally refused any treatment but has subsequently undergone surgery Diet advanced per surgery Path report pending (3) Atrial fibrillation with slow ventricular response: Code(s): I48.91 - Unspecified atrial fibrillation Status: Chronic Assessment and Plan: Patient is in AFib with with controlled ventricular response at this time. Resumed her home diltiazem and metoprolol now may be candidate for anticoagulation again now that tumor removed (4) Type 2 diabetes mellitus with hyperglycemia, with long-term current use of insulin: Code(s): E11.65 - Type 2 diabetes mellitus with hyperglycemia; Z79.4 - nursing home (current) use of insulin Status: Chronic Assessment and Plan: ss and restart lantus 20 U starte 07/28 with increased diet, FBS 165 this am (5) CKD (chronic kidney disease) stage 4, GFR 15-29 ml/min: Code(s): N18.4 - Chronic kidney disease, stage 4 (severe) Status: Chronic Assessment and Plan: Creatinine 1.2 again this a.m. at or just below her baseline (6) Hypertensive heart disease with heart failure: Code(s): I11.0 - Hypertensive heart disease with heart failure Status: Acute Assessment and Plan: Patient is on metoprolol as well as diltiazem oral. Have been continued per surgery team. (7) Severe obstructive sleep apnea: Code(s): G47.33 - Obstructive sleep apnea (adult) (pediatric) Status: Chronic Assessment and Plan: She will need a CPAP now that she is off the ventilator. (8) Congestive heart failure: Qualifiers: Heart failure type: diastolic Heart failure chronicity: chronic Qualified Code(s): I50.32 - Chronic diastolic (congestive) heart failure Code(s): I50.9 - Heart failure, unspecified Status: Chronic Assessment and Plan: Patient's last echo was reported on 01/04/2019 with the EF of 56%. She is on metoprolol and Lasix which have been continued per surgery. Her Zaroxolyn has also been reordered per surgery. Follow electrolytes K 2.9 and extra K ordered and repeat am faint basal crackles , incentive spirometry and her diuretics. (9) DVT prophylaxis: Code(s): Z29.9 - Encounter for prophylactic measures, unspecified Status: Acute Assessment and Plan: Lovenox Subjective Date/time seen: 07/30/19 14:43 Interval history: Date of visit 07/29. 84-year-old hypertensive type 2 diabetic chronic AFib underwent elective right hemicolectomy for adenocarcinoma of the colon 07/26. Had respiratory distress postoperatively and had to be Re intubated. Extubated 07/27 and doing well now, no sob and tolerating diet and ambulating with walker Exam Narrative: Exam Narrative: Blood pressure 118/70 pulse is 82 irregular saturating 92% RA Pupils equal reactive to light sclera anicteric Lungs faint post basilar crackles still CV irregular Abdomen soft bowel sounds present, bandage not removed Extremities without edema, ac wr
[2019-07-30 17:59] LABS: Glucose Point of Care 132 (65-105)
[2019-07-30 21:14] LABS: Glucose Point of Care 135 (65-105)
[2019-07-31 05:49] LABS: Hemoglobin 12.7 g/dL (12.0-15.0); Mean Corpuscular HGB Conc 32.6 g/dl (32-36); Mean Corpuscular Volume 86.1 fl (80-100); Mean Platelet Volume 10.4 fl (7.4-10.4); Platelet Count Result 199 k/mm3 (150-375); Red Blood Count 4.53 M/mm3 (4.2-5.4); Red Cell Distribution Width 16.9 % (11.5-14.5); White Blood Count 8.5 K/mm3 (4.5-10.0)
[2019-07-31 06:00] VITALS: BP 145/81; PULSE 71; RESP 18; TEMP 36.5; O2SAT 100
[2019-07-31 06:05] LABS: Blood Urea Nitrogen 42 mg/dL (7-17); Calcium 8.8 mg/dL (8.4-10.2); Carbon Dioxide 33 mmol/L (22-30); Chloride 98 mmol/L (98-107); Estimated CRCL calculation 32 ml/min; Estimated Glomerular Filt Rate 43; Glucose 131 mg/dL (65-105); Potassium 3.6 mmol/L (3.4-5.0); Sodium 134 mmol/L (137-145)
[2019-07-31 08:37] VITALS: O2SAT 94
[2019-07-31 08:58] LABS: Glucose Point of Care 114 (65-105)
[2019-07-31] MEDS: FUROSEMIDE 40 MG TABLET PO (09:05)
[2019-07-31] MEDS: ENOXAPARIN 30 MG/0.3 ML SYRINGE SUB-Q (09:05)
[2019-07-31] MEDS: FERROUS SULFATE 324 MG TABLET PO (09:05)
[2019-07-31 09:06] VITALS: PULSE 71
[2019-07-31] MEDS: OPTI-GEN TAB 1 TABLET PO (09:06)
[2019-07-31] MEDS: PANTOPRAZOLE 40 MG TABLET PO (09:06)
[2019-07-31] MEDS: MAGNESIUM OXIDE 400 MG TABLET PO (09:06)
[2019-07-31] MEDS: LORATADINE 10 MG TABLET PO (09:06)
[2019-07-31] MEDS: METOPROLOL TARTRATE 50 MG TAB PO (09:06)
[2019-07-31] MEDS: metOLazone 5 MG TABLET PO (09:06)
[2019-07-31] MEDS: POTASSIUM CHLORIDE 10 MEQ TABLET 40 MEQ PO (09:07)
--- NOTE | 2019-07-31 09:42 | PM.DS ---
DS: Admitting Diagnosis Admitting Diagnosis Admitting Diagnosis: Malignant neoplasm of ascending colon DS: Discharge Diagnosis Discharge Diagnosis (1) Primary adenocarcinoma of ascending colon: Code(s): C18.2 - Malignant neoplasm of ascending colon Status: Chronic Assessment and Plan: 07/27/19 ERMIAS Right Hemicolectomy with ileotransverse anastomosis by Dr. Mclean Pathology pending. (2) Respiratory failure: Qualifiers: Chronicity: unspecified Respiratory failure complication: unspecified whether with hypoxia or hypercapnia Qualified Code(s): J96.90 - Respiratory failure, unspecified, unspecified whether with hypoxia or hypercapnia Code(s): J96.90 - Respiratory failure, unspecified, unspecified whether with hypoxia or hypercapnia Status: Resolved Assessment and Plan: Resolved. See below. Stable for discharge. (3) Hypokalemia: Code(s): E87.6 - Hypokalemia Status: Acute Assessment and Plan: Received potassium supplementation. Will continue home potassium supplement 40 meq TID on discharge and repeat BMP in 1 week. F/u With PCP. (4) Chronic kidney disease, stage IV (severe): Code(s): N18.4 - Chronic kidney disease, stage 4 (severe) Status: Chronic Assessment and Plan: Stable. Creatinine 1.2 on discharge at baseline. (5) Severe obstructive sleep apnea: Code(s): G47.33 - Obstructive sleep apnea (adult) (pediatric) Status: Chronic (6) Chronic GERD: Code(s): K21.9 - Gastro-esophageal reflux disease without esophagitis Status: Acute (7) Congestive heart failure: Qualifiers: Heart failure chronicity: chronic Heart failure type: diastolic Qualified Code(s): I50.32 - Chronic diastolic (congestive) heart failure Code(s): I50.9 - Heart failure, unspecified Status: Chronic (8) Type 2 diabetes mellitus with hyperglycemia, with long-term current use of insulin: Code(s): E11.65 - Type 2 diabetes mellitus with hyperglycemia; Z79.4 - skilled nursing (current) use of insulin Status: Chronic Assessment and Plan: Glucose stable post-op. Continue home medications. (9) OAB (overactive bladder): Code(s): N32.81 - Overactive bladder Status: Acute Assessment and Plan: Continue home medications. (10) WIN (iron deficiency anemia): Code(s): D50.9 - Iron deficiency anemia, unspecified Status: Acute Assessment and Plan: Likely secondary to colon cancer. Tumor removed and H/H stable. Will stop iron on discharge. Follow-up as outpatient with PCP. (11) Chronic atrial fibrillation: Code(s): I48.20 - Chronic atrial fibrillation, unspecified Status: Acute Assessment and Plan: Rate-controlled at discharge. Stable. May be a candidate for anticoagulation now that the tumor has been removed. Follow-up with PCP and Cardiology for recommendations. Discussed with Hospitalist. DS: Summary Hospital Course Reason for hospitalization: Radha Salmeron is a 84 year old female who presented to [facility] in March with severe anemia. This was treated and she had a colonoscopy which showed a mid ascending colon cancer. She was on chronic anticoagulation at that time for her atrial fibrillation, which was then stopped and she has not been taking since. Initially the patient did not want to proceed with surgery but later changed her mind after talking with Oncology and her orthotic/prosthetic clinician. Dr. Mclean saw the patient in the office to discuss surgery and decision was made to proceed with hand-assisted laparoscopic right hemicolectomy. Pre-operative CT scan was negative for metastatic disease and her CEA level was 3.6. Patient then presented for surgery on 07/27/19 and was admitted following surgery for post-operative management, recovery, and respiratory failure. Hospital Course: The patient had a Hand-assisted laparoscopic right hemicolectomy with ileotransverse anastamosis on
[2019-07-31] MEDS: INSULIN GLARGINE (*BKC) 100 UNITS/ML 20 UNITS SUB-Q (10:58)
--- NOTE | 2019-07-31 16:41 | PM.IMPN ---
Progress Note: A&P Assessment and Plan (1) Respiratory failure: Qualifiers: Chronicity: unspecified Respiratory failure complication: unspecified whether with hypoxia or hypercapnia Qualified Code(s): J96.90 - Respiratory failure, unspecified, unspecified whether with hypoxia or hypercapnia Code(s): J96.90 - Respiratory failure, unspecified, unspecified whether with hypoxia or hypercapnia Status: Resolved Assessment and Plan: The patient had been extubated after surgery but had some respiratory difficulty. She was Re intubated and able to be extubated again 07/27 with no respiratory difficulties now. saturating well room air (2) S/P right hemicolectomy: Code(s): Z90.49 - Acquired absence of other specified parts of digestive tract Status: Acute Assessment and Plan: POD #4 Right hemicolectomy and reanastomosis of adenocarcinoma of the colon which was originally diagnosed in March of this year. Patient and family had originally refused any treatment but has subsequently undergone surgery Diet advanced per surgery Path report moderate differentiated adenocarcinoma with staging still pending (3) Atrial fibrillation with slow ventricular response: Code(s): I48.91 - Unspecified atrial fibrillation Status: Chronic Assessment and Plan: Patient is in AFib with with controlled ventricular response at this time. Resumed her home diltiazem and metoprolol now may be candidate for anticoagulation again now that tumor removed and she will contact Dr. 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 at or just below her baseline (6) Hypertensive heart disease with heart failure: Code(s): I11.0 - Hypertensive heart disease with heart failure Status: Acute Assessment and Plan: Patient is on metoprolol as well as diltiazem oral. Have been continued per surgery team. (7) Severe obstructive sleep apnea: Code(s): G47.33 - Obstructive sleep apnea (adult) (pediatric) Status: Chronic Assessment and Plan: She will need a CPAP now that she is off the ventilator. (8) Congestive heart failure: Qualifiers: Heart failure chronicity: chronic Heart failure type: diastolic Qualified Code(s): I50.32 - Chronic diastolic (congestive) heart failure Code(s): I50.9 - Heart failure, unspecified Status: Chronic Assessment and Plan: Patient's last echo was reported on 01/04/2019 with the EF of 56%. She is on metoprolol and Lasix which have been continued per surgery. Her Zaroxolyn has also been reordered per surgery. Follow electrolytes K 3.6 this am and continue tid kcl with repeat bmp 1 week faint basal crackles , incentive spirometry and her diuretics. (9) DVT prophylaxis: Code(s): Z29.9 - Encounter for prophylactic measures, unspecified Status: Acute Assessment and Plan: Lovenox while inpatien Subjective Date/time seen: 07/31/19 16:41 Interval history: Date of visit 07/30. 84-year-old hypertensive type 2 diabetic chronic AFib underwent elective right hemicolectomy for adenocarcinoma of the colon 07/26. Had respiratory distress postoperatively and had to be Re intubated. Extubated 07/27 and doing well now, no sob and tolerating diet and ambulating with walker, ready to go home Exam Narrative: Exam Narrative: Blood pressure 144/80 pulse is 72 irregular saturat
== END 2019-07-31 12:25 | disposition home or self-care (01) | DRG 329 ==
LOC: ANHICU 15:25 → ANH3MEDSUR 07-28 14:16
PROVIDERS: Family Medicine; Internal Medicine; Nurse Practitioner; Admitting Provider Surgery; PCP Family Medicine; Visit Provider Surgery
PROC: 0DTF4ZZ Resection of Right Large Intestine, Percutaneous Endoscopic Approach (ICD-10-PCS; CPT 44204; principal; 2019-07-27 10:30)
DX: C18.2 Malignant neoplasm of ascending colon (principal); J95.821 Acute postprocedural respiratory failure; N18.4 Chronic kidney disease, stage 4 (severe); I50.32 Chronic diastolic (congestive) heart failure; I13.0 Hypertensive heart and chronic kidney disease with heart failure and stage 1 through stage 4 chronic kidney disease, or unspecified chronic kidney disease; I48.91 Unspecified atrial fibrillation; G47.33 Obstructive sleep apnea (adult) (pediatric); E11.22 Type 2 diabetes mellitus with diabetic chronic kidney disease; Z79.4 Long term (current) use of insulin; E87.6 Hypokalemia; D50.9 Iron deficiency anemia, unspecified
CPT/HCPCS: 31500; 36415; 36600; 80048; 80053; 80069; 82375; 82805; 83036; 83050; 83735; 84132; 85025; 85027; 87635; 88309; 94002; 94003; 97110; 97161; 97165; A9270; C9803; J0131; J0690; J1100; J1170; J1650; J1741; J1815; J2310; J2405; J2704; J2710; J3010; J3475; J3480; J7120; U0003

== ENCOUNTER 2019-08-07 11:22 | Outpatient (CLI) | payer MEDICARE, OTHER, SELFPAY ==
[2019-08-07 12:19] LABS: Blood Urea Nitrogen 42 mg/dL (7-17); Calcium 8.9 mg/dL (8.4-10.2); Carbon Dioxide 27 mmol/L (22-30); Chloride 97 mmol/L (98-107); Estimated Glomerular Filt Rate 31; Glucose 238 mg/dL (65-105); Potassium 4.2 mmol/L (3.4-5.0); Sodium 133 mmol/L (137-145)
== END 2019-08-07 11:23 | disposition home or self-care (01) ==
LOC: ANHLAB 11:25
PROVIDERS: PCP Family Medicine; Visit Provider Nurse Practitioner Family
DX: E87.6 Hypokalemia (principal)
CPT/HCPCS: 36415; 80048

== ENCOUNTER 2019-11-24 09:07 | Outpatient (CLI) | payer MEDICARE, OTHER, SELFPAY ==
[2019-11-24 09:41] LABS: Alanine Aminotransferase 8 U/L (4-35); Albumin Level 4.2 g/dL (3.5-5.1); Alkaline Phosphatase 169 U/L (38-126); Anion Gap 11 mmol/L (8-16); Aspartate Amino Transferase 20 U/L (14-36); Bilirubin,Total 0.9 mg/dL (0.2-1.3); Blood Urea Nitrogen 36 mg/dL (7-17); Calcium 9.1 mg/dL (8.4-10.2); Carbon Dioxide 31 mmol/L (22-30); Chloride 97 mmol/L (98-107); Cholesterol 115 mg/dL (0-200); Estimated Glomerular Filt Rate 39; Glucose 119 mg/dL (65-105); HDL Direct 37 mg/dL; Potassium 3.8 mmol/L (3.4-5.0); Sodium 139 mmol/L (137-145); Triglycerides 114 mg/dL (<150)
[2019-11-24 09:52] LABS: LDL Cholesterol Direct 50 mg/dL
[2019-11-24 10:15] LABS: Hemoglobin A1C 7.1 % (<5.7)
== END 2019-11-24 09:08 | disposition home or self-care (01) ==
PROVIDERS: Nurse Practitioner Family; PCP Family Medicine; Referring Provider Physician Assistant; Visit Provider Family Medicine
DX: I11.0 Hypertensive heart disease with heart failure (principal); N18.4 Chronic kidney disease, stage 4 (severe); E78.2 Mixed hyperlipidemia; E11.65 Type 2 diabetes mellitus with hyperglycemia; Z79.4 Long term (current) use of insulin
CPT/HCPCS: 36415; 80053; 80061; 83036

== ENCOUNTER 2019-12-07 14:20 | Outpatient (CLI) | payer MEDICARE, OTHER, SELFPAY ==
[2019-12-07 14:56] LABS: Anion Gap 7 mmol/L (8-16); Blood Urea Nitrogen 30 mg/dL (7-17); Calcium 9.2 mg/dL (8.4-10.2); Carbon Dioxide 34 mmol/L (22-30); Chloride 98 mmol/L (98-107); Estimated Glomerular Filt Rate 39; Glucose 178 mg/dL (65-105); Sodium 139 mmol/L (137-145)
== END 2019-12-07 14:21 | disposition home or self-care (01) ==
LOC: ANHLAB 14:24
PROVIDERS: PCP Family Medicine; Visit Provider Internal Medicine Cardiovascular Disease
DX: E87.6 Hypokalemia (principal); I50.32 Chronic diastolic (congestive) heart failure
CPT/HCPCS: 36415; 80048

== ENCOUNTER 2020-03-21 10:16 | Outpatient (CLI) | payer MEDICARE, OTHER, SELFPAY ==
[2020-03-21 11:12] LABS: Basophils Percent Auto 0.4 % (0.2-1.2); Eosinophils Absolute Auto 0.3 K/mm3 (0-0.3); Eosinophils Percent Auto 3.7 % (0-4.4); Hematocrit 45.2 % (37.0-47.0); Hemoglobin 14.9 g/dL (12.0-15.0); Immature Granulocyte Absolute 0.02 K/mm3 (0.00-0.031); Immature Granulocyte Percent A 0.2 % (0-0.5); Lymphocytes Absolute Auto 3.05 K/mm3 (0.9-3.2); Lymphocytes Percent Auto 36.4 % (18.3-44.2); Mean Corpuscular Hemoglobin 29.2 pg (26-34); Mean Corpuscular Volume 88.6 fl (80-100); Mean Platelet Volume 10.4 fl (7.4-10.4); Monocytes Absolute Auto 0.9 K/mm3 (0.1-0.6); Monocytes Percent Auto 10.9 % (2.6-8.5); Neutrophils Absolute Auto 4.1 K/mm3 (1.3-6.7); Neutrophils Percent Auto 48.4 % (45.5-73.1); Platelet Count Result 201 k/mm3 (150-375); Red Cell Distribution Width 14.7 % (11.5-14.5); White Blood Count 8.4 K/mm3 (4.5-10.0)
[2020-03-21 11:17] LABS: Add Urine Microscopic? YES; Appearance Urine Clear (Clear); Bilirubin Urine Negative (Negative); Blood Urine Negative (Negative); Color Urine Yellow (Yellow); Glucose Urine UA Negative (Negative); Ketones Urine Negative (Negative); Leukocyte Esterase Ur 2+ LEU/UL (NEGATIVE); Mucus Urine Rare /lpf; Nitrate Urine Negative (Negative); Protein Urine Negative (Negative); RBC Urine 0-2 /hpf (0-2); Squamous Epithelial Cell Urine Moderate /hpf (Few); Urobilinogen Urine Negative mg/dL (<2.0)
[2020-03-21 11:26] LABS: Alanine Aminotransferase 8 U/L (4-35); Albumin Level 3.8 g/dL (3.5-5.1); Alkaline Phosphatase 148 U/L (38-126); Anion Gap 8 mmol/L (8-16); Aspartate Amino Transferase 19 U/L (14-36); Blood Urea Nitrogen 38 mg/dL (7-17); Calcium 9.1 mg/dL (8.4-10.2); Carbon Dioxide 31 mmol/L (22-30); Chloride 99 mmol/L (98-107); Cholesterol 121 mg/dL (0-200); Estimated Glomerular Filt Rate 33; Glucose 108 mg/dL (65-105); HDL Direct 43 mg/dL; Potassium 2.9 mmol/L (3.4-5.0); Sodium 138 mmol/L (137-145); Triglycerides 108 mg/dL (<150)
[2020-03-21 11:36] LABS: Hemoglobin A1C 7.6 % (<5.7)
[2020-03-21 11:37] LABS: LDL Cholesterol Direct 49 mg/dL
== END 2020-03-21 10:17 | disposition home or self-care (01) ==
LOC: ANHLAB 10:18
PROVIDERS: PCP Family Medicine; Visit Provider Nurse Practitioner Family
DX: C18.4 Malignant neoplasm of transverse colon (principal); Z51.81 Encounter for therapeutic drug level monitoring; Z79.4 Long term (current) use of insulin; D50.9 Iron deficiency anemia, unspecified; E11.65 Type 2 diabetes mellitus with hyperglycemia; I11.0 Hypertensive heart disease with heart failure; N18.4 Chronic kidney disease, stage 4 (severe); Z00.00 Encounter for general adult medical examination without abnormal findings
CPT/HCPCS: 36415; 80053; 80061; 81001; 83036; 84443; 85025

== ENCOUNTER 2020-04-09 10:57 | Outpatient (CLI) | payer MEDICARE, OTHER, SELFPAY ==
[2020-04-09 11:36] LABS: Anion Gap 8 mmol/L (8-16); Blood Urea Nitrogen 42 mg/dL (7-17); Calcium 8.8 mg/dL (8.4-10.2); Carbon Dioxide 30 mmol/L (22-30); Chloride 102 mmol/L (98-107); Estimated Glomerular Filt Rate 33; Glucose 211 mg/dL (65-105); Potassium 3.4 mmol/L (3.4-5.0); Sodium 140 mmol/L (137-145)
[2020-04-09 11:40] LABS: Rheumatoid Factor < 8.6 IU/ML (<12)
== END 2020-04-09 10:58 | disposition home or self-care (01) ==
PROVIDERS: PCP Family Medicine; Visit Provider Nurse Practitioner Family
DX: E87.6 Hypokalemia (principal); M79.643 Pain in unspecified hand
CPT/HCPCS: 36415; 80048; 86430

== ENCOUNTER 2020-07-26 10:00 | Outpatient (CLI) | payer MEDICARE, OTHER, SELFPAY ==
[2020-07-26 10:36] LABS: Alanine Aminotransferase 10 U/L (4-35); Albumin Level 4.1 g/dL (3.5-5.1); Alkaline Phosphatase 166 U/L (38-126); Anion Gap 11 mmol/L (8-16); Aspartate Amino Transferase 20 U/L (14-36); Bilirubin,Total 1.4 mg/dL (0.2-1.3); Blood Urea Nitrogen 37 mg/dL (7-17); Calcium 9.3 mg/dL (8.4-10.2); Carbon Dioxide 26 mmol/L (22-30); Chloride 104 mmol/L (98-107); Estimated Glomerular Filt Rate 31; Glucose 132 mg/dL (65-105); Potassium 3.8 mmol/L (3.4-5.0); Sodium 141 mmol/L (137-145)
== END 2020-07-26 10:01 | disposition home or self-care (01) ==
LOC: ANHLAB 10:03
PROVIDERS: PCP Family Medicine; Visit Provider Nurse Practitioner Family
DX: N18.4 Chronic kidney disease, stage 4 (severe) (principal); I50.32 Chronic diastolic (congestive) heart failure; Z51.81 Encounter for therapeutic drug level monitoring; Z79.4 Long term (current) use of insulin; R73.01 Impaired fasting glucose
CPT/HCPCS: 36415; 80053; 83036

== ENCOUNTER 2020-10-15 11:18 | Outpatient (CLI) | payer MEDICARE, OTHER, SELFPAY | END 2020-10-15 11:19 | disposition home or self-care (01) | LOC: ANHLAB 11:22 | PROVIDERS: PCP Family Medicine; Visit Provider Internal Medicine Cardiovascular Disease | DX: I12.9 Hypertensive chronic kidney disease with stage 1 through stage 4 chronic kidney disease, or unspecified chronic kidney disease (principal); N18.9 Chronic kidney disease, unspecified; E87.6 Hypokalemia; E11.22 Type 2 diabetes mellitus with diabetic chronic kidney disease | CPT/HCPCS: 36415 ==

== ENCOUNTER 2020-10-17 12:15 | Outpatient (CLI) | payer MEDICARE, OTHER, SELFPAY ==
[2020-10-17 13:06] LABS: Anion Gap 10 mmol/L (8-16); Blood Urea Nitrogen 43 mg/dL (7-17); Calcium 9.6 mg/dL (8.4-10.2); Carbon Dioxide 31 mmol/L (22-30); Chloride 97 mmol/L (98-107); Estimated Glomerular Filt Rate 28; Glucose 142 mg/dL (65-110); Potassium 3.2 mmol/L (3.4-5.0); Sodium 138 mmol/L (137-145)
== END 2020-10-17 12:16 | disposition home or self-care (01) ==
PROVIDERS: PCP Family Medicine; Visit Provider Internal Medicine Cardiovascular Disease
DX: I12.9 Hypertensive chronic kidney disease with stage 1 through stage 4 chronic kidney disease, or unspecified chronic kidney disease (principal); E87.6 Hypokalemia; E11.22 Type 2 diabetes mellitus with diabetic chronic kidney disease
CPT/HCPCS: 36415; 80048

== ENCOUNTER 2020-11-30 09:04 | Outpatient (CLI) | payer MEDICARE, OTHER, SELFPAY ==
[2020-11-30 10:08] LABS: Hematocrit 47.3 % (37.0-47.0); Hemoglobin 15.3 g/dL (12.0-15.0); Mean Corpuscular HGB Conc 32.3 g/dl (32-36); Mean Corpuscular Hemoglobin 29.5 pg (26-34); Mean Corpuscular Volume 91.3 fl (80-100); Mean Platelet Volume 10.5 fl (7.4-10.4); Platelet Count Result 225 k/mm3 (150-375); Red Blood Count 5.18 M/mm3 (4.2-5.4); Red Cell Distribution Width 14.8 % (11.5-14.5); White Blood Count 9.5 K/mm3 (4.5-10.0)
[2020-11-30 10:26] LABS: Add Urine Microscopic? YES; Amorphous Sediment Urine Few; Appearance Urine Cloudy (Clear); Bilirubin Urine Negative (Negative); Blood Urine Negative (Negative); Color Urine Yellow (Yellow); Glucose Urine UA Negative (Negative); Hemoglobin A1C 8.1 % (<5.7); Ketones Urine Negative (Negative); Leukocyte Esterase Ur 2+ LEU/UL (NEGATIVE); Mucus Urine Rare /lpf; Nitrate Urine Negative (Negative); Protein Urine Negative (Negative); Specific Grav Ur 1.012 (1.001-1.035); Squamous Epithelial Cell Urine Rare /hpf (Few); Urobilinogen Urine Negative mg/dL (<2.0); WBC Urine 51-75 /hpf (0-3)
[2020-11-30 10:33] LABS: Alanine Aminotransferase 11 U/L (4-35); Albumin Level 4.1 g/dL (3.5-5.1); Alkaline Phosphatase 195 U/L (38-126); Anion Gap 10 mmol/L (8-16); Aspartate Amino Transferase 19 U/L (14-36); Bilirubin,Total 1.1 mg/dL (0.2-1.3); Blood Urea Nitrogen 43 mg/dL (7-17); Calcium 9.2 mg/dL (8.4-10.2); Carbon Dioxide 32 mmol/L (22-30); Chloride 95 mmol/L (98-107); Cholesterol 130 mg/dL (0-200); Estimated Glomerular Filt Rate 31; Glucose 173 mg/dL (65-110); HDL Direct 52 mg/dL; Potassium 3.4 mmol/L (3.4-5.0); Sodium 137 mmol/L (137-145); Triglycerides 99 mg/dL (<150)
[2020-11-30 10:44] LABS: LDL Cholesterol Direct 58 mg/dL
== END 2020-11-30 09:05 | disposition home or self-care (01) ==
LOC: ANHLAB 09:07
PROVIDERS: PCP Family Medicine; Visit Provider Family Medicine
DX: E11.65 Type 2 diabetes mellitus with hyperglycemia (principal); N18.4 Chronic kidney disease, stage 4 (severe); I11.0 Hypertensive heart disease with heart failure; Z79.4 Long term (current) use of insulin
CPT/HCPCS: 36415; 80053; 80061; 81001; 83036; 84443; 85027

== ENCOUNTER 2021-03-29 09:32 | Outpatient (CLI) | payer MEDICARE, OTHER, SELFPAY ==
[2021-03-29 10:10] LABS: Alanine Aminotransferase 9 U/L (4-35); Albumin Level 4.2 g/dL (3.5-5.1); Alkaline Phosphatase 180 U/L (38-126); Anion Gap 11 mmol/L (8-16); Aspartate Amino Transferase 19 U/L (14-36); Bilirubin,Total 1.3 mg/dL (0.2-1.3); Blood Urea Nitrogen 40 mg/dL (7-17); Carbon Dioxide 29 mmol/L (22-30); Chloride 99 mmol/L (98-107); Estimated Glomerular Filt Rate 36; Glucose 132 mg/dL (65-110); Potassium 3.2 mmol/L (3.4-5.0); Sodium 139 mmol/L (137-145)
[2021-03-29 10:56] LABS: Hemoglobin A1C 7.2 % (<5.7)
== END 2021-03-29 09:33 | disposition home or self-care (01) ==
LOC: ANHLAB 09:35
PROVIDERS: PCP Family Medicine; Visit Provider Family Medicine
DX: E11.65 Type 2 diabetes mellitus with hyperglycemia (principal); Z79.4 Long term (current) use of insulin
CPT/HCPCS: 36415; 80053; 83036

== ENCOUNTER 2021-05-17 12:35 | Outpatient (CLI) | payer MEDICARE, OTHER, SELFPAY ==
[2021-05-17 13:52] LABS: Anion Gap 10 mmol/L (8-16); Blood Urea Nitrogen 28 mg/dL (7-17); Calcium 8.3 mg/dL (8.4-10.2); Carbon Dioxide 29 mmol/L (22-30); Chloride 99 mmol/L (98-107); Estimated Glomerular Filt Rate 39; Glucose 122 mg/dL (65-110); Sodium 138 mmol/L (137-145)
== END 2021-05-17 12:36 | disposition home or self-care (01) ==
LOC: ANHLAB 12:38
PROVIDERS: PCP Family Medicine; Visit Provider Internal Medicine Cardiovascular Disease
DX: E11.22 Type 2 diabetes mellitus with diabetic chronic kidney disease (principal); I12.9 Hypertensive chronic kidney disease with stage 1 through stage 4 chronic kidney disease, or unspecified chronic kidney disease
CPT/HCPCS: 36415; 80048

== ENCOUNTER 2021-07-26 09:43 | Outpatient (CLI) | payer MEDICARE, OTHER, SELFPAY ==
[2021-07-26 10:43] LABS: Alanine Aminotransferase 10 U/L (6-35); Albumin Level 4.1 g/dL (3.5-5.1); Alkaline Phosphatase 163 U/L (38-126); Anion Gap 9 mmol/L (8-16); Aspartate Amino Transferase 21 U/L (14-36); Bilirubin,Total 1.6 mg/dL (0.2-1.3); Blood Urea Nitrogen 32 mg/dL (7-17); Calcium 8.3 mg/dL (8.4-10.2); Carbon Dioxide 30 mmol/L (22-30); Chloride 100 mmol/L (98-107); Estimated Glomerular Filt Rate 30; Glucose 140 mg/dL (65-110); Potassium 3.6 mmol/L (3.4-5.0); Sodium 139 mmol/L (137-145)
[2021-07-26 12:14] LABS: Hemoglobin A1C 6.8 % (<5.7)
== END 2021-07-26 09:44 | disposition home or self-care (01) ==
LOC: ANHLAB 09:46
PROVIDERS: PCP Family Medicine; Visit Provider Family Medicine
DX: E11.65 Type 2 diabetes mellitus with hyperglycemia (principal); Z79.4 Long term (current) use of insulin
CPT/HCPCS: 36415; 80053; 83036

== ENCOUNTER 2021-07-30 11:38 | Outpatient (CLI) | payer MEDICARE, OTHER, SELFPAY ==
[2021-07-30 11:57] LABS: Basophils Percent Auto 0.4 % (0.2-1.2); Eosinophils Absolute Auto 0.2 K/mm3 (0-0.3); Eosinophils Percent Auto 1.5 % (0-4.4); Hematocrit 44.5 % (37.0-47.0); Hemoglobin 14.6 g/dL (12.0-15.0); Immature Granulocyte Absolute 0.03 K/mm3 (0.00-0.031); Immature Granulocyte Percent A 0.3 % (0-0.5); Lymphocytes Absolute Auto 2.73 K/mm3 (0.9-3.2); Lymphocytes Percent Auto 24.5 % (18.3-44.2); Mean Corpuscular HGB Conc 32.8 g/dl (32-36); Mean Corpuscular Volume 88.5 fl (80-100); Mean Platelet Volume 9.9 fl (7.4-10.4); Monocytes Absolute Auto 1.4 K/mm3 (0.1-0.6); Monocytes Percent Auto 12.3 % (2.6-8.5); Neutrophils Absolute Auto 6.8 K/mm3 (1.3-6.7); Platelet Count Result 248 k/mm3 (150-375); Red Blood Count 5.03 M/mm3 (4.2-5.4); Red Cell Distribution Width 16.1 % (11.5-14.5); White Blood Count 11.1 K/mm3 (4.5-10.0)
[2021-07-30 13:15] LABS: Folic Acid 10.1 ng/mL (2.76->20)
== END 2021-07-30 11:39 | disposition home or self-care (01) ==
LOC: ANHLAB 11:40
PROVIDERS: PCP Family Medicine; Visit Provider Family Medicine
DX: E11.65 Type 2 diabetes mellitus with hyperglycemia (principal); R53.83 Other fatigue; Z79.4 Long term (current) use of insulin
CPT/HCPCS: 36415; 82607; 82746; 84443; 85025

== ENCOUNTER 2021-11-19 08:19 | Outpatient (CLI) | payer MEDICARE, OTHER, SELFPAY ==
[2021-11-19 08:58] LABS: Alanine Aminotransferase 14 U/L (6-35); Albumin Level 4.1 g/dL (3.5-5.1); Alkaline Phosphatase 184 U/L (38-126); Anion Gap 10 mmol/L (8-16); Aspartate Amino Transferase 19 U/L (14-36); Bilirubin,Total 1.5 mg/dL (0.2-1.3); Blood Urea Nitrogen 26 mg/dL (7-17); Calcium 9.1 mg/dL (8.4-10.2); Carbon Dioxide 27 mmol/L (22-30); Chloride 103 mmol/L (98-107); Estimated Glomerular Filt Rate 36; Glucose 84 mg/dL (65-110); Potassium 3.5 mmol/L (3.4-5.0); Sodium 140 mmol/L (137-145)
[2021-11-19 09:47] LABS: Hemoglobin A1C 7.2 % (<5.7)
== END 2021-11-19 08:20 | disposition home or self-care (01) ==
PROVIDERS: PCP Family Medicine; Visit Provider Physician Assistant
DX: I11.0 Hypertensive heart disease with heart failure (principal); I50.32 Chronic diastolic (congestive) heart failure; E11.65 Type 2 diabetes mellitus with hyperglycemia; Z51.81 Encounter for therapeutic drug level monitoring; Z79.4 Long term (current) use of insulin; I48.21 Permanent atrial fibrillation
CPT/HCPCS: 36415; 80053; 83036

== ENCOUNTER 2021-12-29 11:11 | Outpatient (CLI) | payer MEDICARE, OTHER, SELFPAY ==
[2021-12-29 13:06] LABS: Influenza A QL RT-PCR Negative (Negative); Influenza B QL RT-PCR Negative (Negative); RSV RNA, RT-PCR Negative (Negative); SARS-CoV-2 RNA PCR Negative
== END 2021-12-29 11:12 | disposition home or self-care (01) ==
LOC: ANHLAB 11:13
PROVIDERS: PCP Family Medicine; Visit Provider Physician Assistant
DX: R05.9 Cough, unspecified (principal); R52 Pain, unspecified
CPT/HCPCS: 87637; 87804

== ENCOUNTER 2022-03-24 08:08 | Outpatient (CLI) | payer MEDICARE, OTHER, SELFPAY ==
[2022-03-24 08:47] LABS: Hematocrit 45.5 % (37.0-47.0); Hemoglobin 14.4 g/dL (12.0-15.0); Mean Corpuscular HGB Conc 31.6 g/dl (32-36); Mean Corpuscular Hemoglobin 28.6 pg (26-34); Mean Corpuscular Volume 90.3 fl (80-100); Mean Platelet Volume 10.5 fl (7.4-10.4); Platelet Count Result 226 k/mm3 (150-375); Red Blood Count 5.04 M/mm3 (4.2-5.4); Red Cell Distribution Width 16.2 % (11.5-14.5); White Blood Count 8.4 K/mm3 (4.5-10.0)
[2022-03-24 09:01] LABS: Alanine Aminotransferase 13 U/L (6-35); Albumin Level 4.1 g/dL (3.5-5.1); Alkaline Phosphatase 157 U/L (38-126); Anion Gap 7 mmol/L (8-16); Aspartate Amino Transferase 19 U/L (14-36); Bilirubin,Total 1.2 mg/dL (0.2-1.3); Blood Urea Nitrogen 25 mg/dL (7-17); Calcium 8.6 mg/dL (8.4-10.2); Carbon Dioxide 29 mmol/L (22-30); Chloride 99 mmol/L (98-107); Cholesterol 110 mg/dL (0-200); Estimated Glomerular Filt Rate 42; Glucose 129 mg/dL (65-110); HDL Direct 47 mg/dL; Potassium 3.6 mmol/L (3.4-5.0); Sodium 135 mmol/L (137-145); Triglycerides 113 mg/dL (<150)
[2022-03-24 09:08] LABS: LDL Cholesterol Direct 36 mg/dL
[2022-03-24 09:15] LABS: Hemoglobin A1C 6.7 % (<5.7)
[2022-03-24 09:48] LABS: MALB Creatinine Ratio 39.1 mg/g (0-30); Microalbumin Urine Random 33.2 mg/L (0-16.7)
== END 2022-03-24 08:09 | disposition home or self-care (01) ==
PROVIDERS: PCP Family Medicine; Visit Provider Family Medicine
DX: I13.0 Hypertensive heart and chronic kidney disease with heart failure and stage 1 through stage 4 chronic kidney disease, or unspecified chronic kidney disease (principal); E11.22 Type 2 diabetes mellitus with diabetic chronic kidney disease; E11.65 Type 2 diabetes mellitus with hyperglycemia; Z79.4 Long term (current) use of insulin
CPT/HCPCS: 36415; 80053; 80061; 82043; 83036; 84443; 85027

== ENCOUNTER 2022-08-12 17:02 | Outpatient (CLI) | payer MEDICARE, OTHER, SELFPAY ==
[2022-08-12 18:10] LABS: Alanine Aminotransferase 14 U/L (6-35); Albumin Level 4.1 g/dL (3.5-5.1); Alkaline Phosphatase 168 U/L (38-126); Anion Gap 11 mmol/L (8-16); Aspartate Amino Transferase 18 U/L (14-36); Bilirubin,Total 1.2 mg/dL (0.2-1.3); Blood Urea Nitrogen 26 mg/dL (7-17); Calcium 8.5 mg/dL (8.4-10.2); Carbon Dioxide 28 mmol/L (22-30); Chloride 100 mmol/L (98-107); Estimated Glomerular Filt Rate 47; Glucose 165 mg/dL (65-110); Potassium 3.2 mmol/L (3.4-5.0); Sodium 139 mmol/L (137-145)
[2022-08-12 18:13] LABS: Hemoglobin A1C 6.8 % (<5.7)
== END 2022-08-12 17:03 | disposition home or self-care (01) ==
PROVIDERS: PCP Family Medicine; Visit Provider Family Medicine
DX: E11.65 Type 2 diabetes mellitus with hyperglycemia (principal); Z79.4 Long term (current) use of insulin
CPT/HCPCS: 36415; 80053; 83036

== ENCOUNTER 2022-11-17 14:23 | Outpatient (CLI) | payer MEDICARE, OTHER, SELFPAY ==
[2022-11-17 15:19] LABS: Anion Gap 9 mmol/L (8-16); Blood Urea Nitrogen 38 mg/dL (7-17); Calcium 9.5 mg/dL (8.4-10.2); Carbon Dioxide 28 mmol/L (22-30); Chloride 100 mmol/L (98-107); Estimated Glomerular Filt Rate 33; Glucose 173 mg/dL (65-110); Potassium 3.6 mmol/L (3.4-5.0); Sodium 137 mmol/L (137-145)
== END 2022-11-17 14:24 | disposition home or self-care (01) ==
LOC: ANHLAB 14:24
PROVIDERS: PCP Family Medicine; Visit Provider Internal Medicine Cardiovascular Disease
DX: I50.42 Chronic combined systolic (congestive) and diastolic (congestive) heart failure (principal)
CPT/HCPCS: 36415; 80048

== ENCOUNTER 2022-12-04 16:31 | Outpatient (CLI) | payer MEDICARE, OTHER, SELFPAY ==
[2022-12-04 19:08] LABS: Hemoglobin A1C 6.5 % (<5.7)
== END 2022-12-04 16:32 | disposition home or self-care (01) ==
PROVIDERS: PCP Family Medicine; Visit Provider Physician Assistant
DX: E11.65 Type 2 diabetes mellitus with hyperglycemia (principal); Z79.4 Long term (current) use of insulin
CPT/HCPCS: 36415; 83036

== ENCOUNTER 2023-02-10 18:01 | Emergency (ER) | payer MEDICARE, OTHER, SELFPAY ==
[2023-02-10] VITALS (13 sets, daily range): BP systolic 119–150; BP diastolic 66–89; PULSE 91–127; RESP 14–23; TEMP 36.6; O2SAT 97–99
--- NOTE | ~2023-02-10 | XR_ITS ---
EXAMINATION: XR chest 2V DATE: 02/10/2023 18:38 INDICATION: Cough. TECHNIQUE: Frontal and lateral views of the chest were obtained. COMPARISON: Chest single view 07/27/2019, PET/CT 04/06/2019 FINDINGS: There is mild elevation of right hemidiaphragm. There is a diffuse interstitial pattern in the lungs, consistent with mild pulmonary edema. No pleural effusion or pneumothorax. Cardiomegaly is noted. Surgical clips in the right upper quadrant are likely from cholecystectomy. There is a chroni c compression fracture at thoracolumbar junction. IMPRESSION: 1. Mild pulmonary edema. 2. Cardiomegaly. Reviewed, dictated and finalized at location [facility] [employer]
--- NOTE | 2023-02-10 18:05 | ECG_ITS ---
Measurements Intervals [place] Rate: 118 P: [place]: 0 QRS: -26 QRSD: 113 T: 121 QT: 354 QTc: 497 Interpretive Statements ATRIAL FIBRILLATION WITH RAPID VENTRICULAR RESPONSE LOW QRS VOLTAGE IN PRECORDIAL LEADS INCOMPLETE RIGHT BUNDLE BRANCH BLOCK POOR R WAVE PROGRESSION, ANTERIOR LEADS ST-T WAVE ABNORMALITY IN HIGH LATERAL LEADS- CONSIDER ISCHEMIA ABNORMAL ECG COMPARED TO ECG 02/20/2019 01:36:10 HEART RATE HAS INCREASED Electronically Signed On 02-10-2023 18:55:21 SCANNING TECH by Alvin Romo D.O.
[2023-02-10 18:25] LABS: Basophils Percent Auto 0.3 % (0.2-1.2); Eosinophils Absolute Auto 0.2 K/mm3 (0-0.3); Hematocrit 45.7 % (37.0-47.0); Hemoglobin 13.9 g/dL (12.0-15.0); Immature Granulocyte Absolute 0.02 K/mm3 (0.00-0.031); Immature Granulocyte Percent A 0.3 % (0-0.5); Lymphocytes Absolute Auto 2.27 K/mm3 (0.9-3.2); Lymphocytes Percent Auto 29.1 % (18.3-44.2); Mean Corpuscular HGB Conc 30.4 g/dl (32-36); Mean Corpuscular Hemoglobin 27.7 pg (26-34); Mean Platelet Volume 10.6 fl (7.4-10.4); Monocytes Absolute Auto 0.6 K/mm3 (0.1-0.6); Monocytes Percent Auto 7.6 % (2.6-8.5); Neutrophils Absolute Auto 4.8 K/mm3 (1.3-6.7); Neutrophils Percent Auto 60.7 % (45.5-73.1); Platelet Count Result 177 k/mm3 (150-375); Red Blood Count 5.02 M/mm3 (4.2-5.4); Red Cell Distribution Width 15.8 % (11.5-14.5); White Blood Count 7.8 K/mm3 (4.5-10.0)
[2023-02-10 18:39] LABS: Alanine Aminotransferase 15 U/L (6-35); Albumin Level 3.9 g/dL (3.5-5.1); Alkaline Phosphatase 169 U/L (38-126); Anion Gap 12 mmol/L (8-16); Aspartate Amino Transferase 23 U/L (14-36); Bilirubin,Total 0.8 mg/dL (0.2-1.3); Blood Urea Nitrogen 19 mg/dL (7-17); Calcium 8.7 mg/dL (8.4-10.2); Carbon Dioxide 19 mmol/L (22-30); Chloride 106 mmol/L (98-107); Estimated CRCL calculation 30 ml/min; Estimated Glomerular Filt Rate 42; Glucose 167 mg/dL (65-110); Potassium 4.3 mmol/L (3.4-5.0); Sodium 137 mmol/L (137-145)
--- NOTE | 2023-02-10 19:14 | ED.URI ---
HPI - URI/Sore Throat General Chief Complaint: Upper Respiratory Infection Stated Complaint: cough Time Seen by Provider: 02/10/23 19:13 History of Present Illness HPI Narrative: Patient is an 87 year old female with history of DM, HTN, CKD, CHF on nocturnal oxygen, GERD, A.fib anticoagualted on eliquis, colon cancer s/p colectomy here with cough and shortness of breath. Patient notes that she has had an increased cough over the last 3 days. She notes some increased shortness of breath as well over the last 3 days. Her cough seems to be causing her to have some posttussive chest pain and dry mouth. She has not been taking anything for her cough and just taking sips of water about every hour. She does have history of CHF, is on Lasix, denies any increase in lower extremity swelling, daughter at bedside notes that her legs look better than they normally do. She denies any diarrhea, no sick contacts. She does have a history of AFib, takes metoprolol b.i.d., is due for her evening dose shortly. Denies any lightheadedness. Related Data Home Medications Medication Instructions Recorded Confirmed blood sugar diagnostic #10 ea 01/11/19 12/07/22 loratadine 10 mg tablet 10 mg PO DAILY 01/11/19 12/07/22 magnesium oxide 400 mg PO DAILY 03/14/19 12/07/22 vit C 250 mg-vit E 90 mg-zinc 40 1 tablet PO BID 03/18/19 12/07/22 mg-copper 1 [id number] capsule (PreserVision AREDS-2) apixaban 2.5 mg tablet (Eliquis) 2.5 mg PO BID 08/28/19 12/07/22 Allergies Allergy/AdvReac Type Severity Reaction Status Date / Time adhesive tape Allergy Unknown Rash Verified 12/07/22 13:16 cetirizine Allergy Unknown Swelling Verified 12/07/22 13:16 of Lip/Tongue/Throat diazepam Allergy Unknown Cough Verified 12/07/22 13:16 gabapentin Allergy Unknown Confusion Verified 12/07/22 13:16 levetiracetam Allergy Unknown Confusion Verified 12/07/22 13:16 levofloxacin Allergy Unknown Confusion Verified 12/07/22 13:16 pregabalin Allergy Unknown Confusion Verified 12/07/22 13:16 zolpidem Allergy Unknown Hallucinati Verified 12/07/22 13:16 ng sleep aids - all AdvReac Severe Hallucinati Uncoded 12/07/22 13:16 ng Review of Systems Review of Systems: All systems reviewed & are unremarkable except as noted in HPI and below PMFSH Past Medical History Medical History Anxiety Atrial fibrillation with slow ventricular response CKD (chronic kidney disease) stage 4, GFR 15-29 ml/min With baseline creatinine between 1.6 and 1.9 Congestive heart failure (CHF) With most recent echocardiogram 12/2018 systolic function lower limits of normal with EF of 50-56%. Severe right ventricular enlargement, mild right ventricular hypokinesis. Severe biatrial enlargement. Mild mitral valve regurgitation. Mild pulmonary hypertension with RVSP of 36. Moderate tricuspid regurgitation. Severe pulmonic regurgitation. Atrial fibrillation Controlled diabetes mellitus Cough Diabetes DVT (deep venous thrombosis) GERD (gastroesophageal reflux disease) History of fractured vertebra HTN (hypertension) Hyperkalemia Hypokalemia Hypomagnesemia WIN (iron deficiency anemia) Macular degeneration Peripheral neuropathy Pneumonia Severe obstructive sleep apnea Intolerant to CPAP TIA (transient ischemic attack) Venous stasis ulcers Surgical History Surgical History H/O colectomy H/O: hysterectomy History of cholecystectomy open Family History Family History Mother Family history of respiratory disorder, Onset Age: 21 Other Family history of cardiovascular disease Social History Social History Social History: The patient resides at [facility]. She is . Her daughter Katelyn is her healthca
[2023-02-10 20:12] LABS: Influenza A QL RT-PCR Negative (Negative); Influenza B QL RT-PCR Negative (Negative); RSV RNA, RT-PCR Negative (Negative); SARS-CoV-2 RNA PCR Positive (Negative)
[2023-02-10 20:56] LABS: NT Pro B Type Natriuretic Pept 3610 pg/mL (19.9-100); Troponin I < 0.012 ng/mL (0.000-0.034)
[2023-02-10] MEDS: METOPROLOL TARTRATE 50 MG TAB PO (21:09)
--- NOTE | 2023-02-10 21:32 | PC.NURSE ---
O2 saturation with ambulation maintained 97%
[2023-02-10] MEDS: METOPROLOL TARTRATE INJ 5 MG/5 ML VIAL IV PUSH (21:59)
[2023-02-10 22:08] LABS: Glucose Point of Care 128 mg/dl (65-105)
== END 2023-02-10 22:55 ==
PROVIDERS: Emergency Medicine; Emergency Provider Student in an Organized Health Care Education/Training Program; PCP Family Medicine
DX: U07.1 COVID-19 (principal); I48.91 Unspecified atrial fibrillation; E11.22 Type 2 diabetes mellitus with diabetic chronic kidney disease; I13.0 Hypertensive heart and chronic kidney disease with heart failure and stage 1 through stage 4 chronic kidney disease, or unspecified chronic kidney disease; N18.4 Chronic kidney disease, stage 4 (severe); I50.9 Heart failure, unspecified; D50.9 Iron deficiency anemia, unspecified; H35.30 Unspecified macular degeneration; G47.33 Obstructive sleep apnea (adult) (pediatric); K21.9 Gastro-esophageal reflux disease without esophagitis; Z66 Do not resuscitate; Z86.718 Personal history of other venous thrombosis and embolism; Z87.01 Personal history of pneumonia (recurrent); Z86.73 Personal history of transient ischemic attack (TIA), and cerebral infarction without residual deficits; Z90.710 Acquired absence of both cervix and uterus; Z90.49 Acquired absence of other specified parts of digestive tract; Z79.01 Long term (current) use of anticoagulants; Z79.4 Long term (current) use of insulin; I45.10 Unspecified right bundle-branch block
CPT/HCPCS: 36415; 71046; 80053; 82948; 83880; 84484; 85025; 87637; 93005; 96374; 99284; A9270

== ENCOUNTER 2023-04-05 08:27 | Outpatient (CLI) | payer MEDICARE, OTHER, SELFPAY ==
[2023-04-05 09:10] LABS: Appearance Urine Clear (Clear); Bacteria Urine 4+ /hpf; Bilirubin Urine Negative (Negative); Blood Urine Negative (Negative); Color Urine Yellow (Yellow); Glucose Urine UA Negative (Negative); Ketones Urine Negative (Negative); Leukocyte Esterase Ur 2+ LEU/UL (NEGATIVE); Nitrate Urine Negative (Negative); Non Pathogenic Casts 0-2; Protein Urine Negative (Negative); RBC Urine 0-2 /hpf (0-2); Squamous Epithelial Cell Urine Occasional /hpf (Few); Urobilinogen Urine 0.2 mg/dL (<2.0); WBC Urine 21-50 /hpf (0-3); pH Urine 5.5 (5.0-9.0)
[2023-04-05 09:14] LABS: Add Urine Microscopic? YES
[2023-04-05 09:46] LABS: Hematocrit 44.2 % (37.0-47.0); Hemoglobin 13.5 g/dL (12.0-15.0); Mean Corpuscular HGB Conc 30.5 g/dl (32-36); Mean Corpuscular Volume 91.7 fl (80-100); Mean Platelet Volume 11.6 fl (7.4-10.4); Platelet Count Result 188 k/mm3 (150-375); Red Blood Count 4.82 M/mm3 (4.2-5.4); Red Cell Distribution Width 17.7 % (11.5-14.5); White Blood Count 7.8 K/mm3 (4.5-10.0)
[2023-04-05 09:47] LABS: Creatinine Urine 39.3 mg/dL
[2023-04-05 09:50] LABS: MALB Creatinine Ratio 93.9 mg/g (0-30); Microalbumin Urine Random 36.9 mg/L (0-16.7)
[2023-04-05 10:11] LABS: LDL Cholesterol Direct 43 mg/dL
[2023-04-05 10:22] LABS: Alanine Aminotransferase 9 U/L (6-35); Albumin Level 3.8 g/dL (3.5-5.1); Alkaline Phosphatase 172 U/L (38-126); Anion Gap 8 mmol/L (8-16); Aspartate Amino Transferase 18 U/L (14-36); Bilirubin,Total 1.4 mg/dL (0.2-1.3); Blood Urea Nitrogen 27 mg/dL (7-17); Calcium 9.3 mg/dL (8.4-10.2); Carbon Dioxide 24 mmol/L (22-30); Chloride 108 mmol/L (98-107); Cholesterol 108 mg/dL (0-200); Estimated Glomerular Filt Rate 39; Glucose 98 mg/dL (65-110); HDL Direct 50 mg/dL; Potassium 3.4 mmol/L (3.4-5.0); Sodium 140 mmol/L (137-145); Triglycerides 95 mg/dL (<150)
== END 2023-04-05 08:28 | disposition home or self-care (01) ==
LOC: ANHLAB 08:30
PROVIDERS: PCP Family Medicine; Visit Provider Family Medicine
DX: E11.65 Type 2 diabetes mellitus with hyperglycemia (principal); I12.9 Hypertensive chronic kidney disease with stage 1 through stage 4 chronic kidney disease, or unspecified chronic kidney disease; N18.4 Chronic kidney disease, stage 4 (severe); D50.9 Iron deficiency anemia, unspecified; I11.0 Hypertensive heart disease with heart failure; I50.9 Heart failure, unspecified; Z79.4 Long term (current) use of insulin
CPT/HCPCS: 36415; 80053; 80061; 81001; 82043; 83036; 84443; 85027

== ENCOUNTER 2023-07-29 13:32 | Outpatient (CLI) | payer MEDICARE, OTHER, SELFPAY ==
[2023-07-29 14:26] LABS: Hemoglobin A1C 7.2 % (<5.7)
[2023-07-29 14:33] LABS: Alanine Aminotransferase 9 U/L (6-35); Albumin Level 4.1 g/dL (3.5-5.1); Alkaline Phosphatase 163 U/L (38-126); Anion Gap 9 mmol/L (4-12); Aspartate Amino Transferase 16 U/L (14-36); Bilirubin,Total 1.3 mg/dL (0.2-1.3); Blood Urea Nitrogen 23 mg/dL (7-17); Carbon Dioxide 24 mmol/L (22-30); Chloride 108 mmol/L (98-107); Estimated Glomerular Filt Rate 39; Glucose 164 mg/dL (65-110); Potassium 3.6 mmol/L (3.4-5.0); Sodium 141 mmol/L (137-145)
== END 2023-07-29 13:33 | disposition home or self-care (01) ==
LOC: ANHLAB 13:34
PROVIDERS: PCP Family Medicine; Visit Provider Family Medicine
DX: E11.65 Type 2 diabetes mellitus with hyperglycemia (principal); Z79.4 Long term (current) use of insulin
CPT/HCPCS: 36415; 80053; 83036

== ENCOUNTER 2023-12-15 12:01 | Outpatient (CLI) | payer MEDICARE, OTHER, SELFPAY ==
[2023-12-15 12:38] LABS: Hemoglobin A1C 7.3 % (<5.7)
[2023-12-15 13:14] LABS: Alanine Aminotransferase 11 U/L (6-35); Albumin Level 4.1 g/dL (3.5-5.1); Alkaline Phosphatase 167 U/L (38-126); Anion Gap 11 mmol/L (4-12); Aspartate Amino Transferase 21 U/L (14-36); Blood Urea Nitrogen 32 mg/dL (7-17); Calcium 9.2 mg/dL (8.4-10.2); Carbon Dioxide 22 mmol/L (22-30); Chloride 105 mmol/L (98-107); Estimated Glomerular Filt Rate 33; Glucose 240 mg/dL (65-110); Potassium 5.8 mmol/L (3.4-5.0); Sodium 138 mmol/L (137-145)
== END 2023-12-15 12:02 | disposition home or self-care (01) ==
PROVIDERS: PCP Family Medicine; Visit Provider Family Medicine
DX: E11.65 Type 2 diabetes mellitus with hyperglycemia (principal); Z79.4 Long term (current) use of insulin
CPT/HCPCS: 36415; 80053; 83036

== ENCOUNTER 2023-12-19 11:14 | Inpatient (IN) | payer MEDICARE, OTHER, SELFPAY ==
[2023-12-19] VITALS (36 sets, daily range): BP systolic 104–156; BP diastolic 50–115; PULSE 83–150; RESP 17–34; TEMP 36.6–37.2; O2SAT 88–100; BMI 32.5
--- NOTE | ~2023-12-19 | XR_ITS ---
Right wrist Technique: PA, oblique, lateral, and ulnar deviation views were obtained. Clinical History: Pain Findings: Questionable small acute fracture the dorsal triquetrum on lateral view. Osseous alignment is anatomic. There is mild degenerative change of the first CMC joint. There is mild chondrocalcinosi s of the TFCC. Impression: Questionable small acute fracture the dorsal triquetrum on lateral view. Mild degenerative change at the first CMC joint. Reviewed, dictated and finalized at location M. PURCHASING Impression: Questionable small acute fracture the dorsal triquetrum on lateral view. Mild degenerative change at the first CMC joint.
--- NOTE | ~2023-12-19 | XR_ITS ---
EXAMINATION: XR barium swallow modified DATE: 12/21/2023 14:39 INDICATION: Impaired swallowing. TECHNIQUE: The patient was given barium-containing material of multiple consistencies to swallow by t celine speech pathologist while I performed fluoroscopy. Fluoroscopy exposure time was 0.5 minutes. The n umber of fluoroscopy images saved to the PACS was 1. Dose-area product was 0.3 Gy-cm^2. FINDINGS: The oral stage, pharyngeal stage, and cervical/esophageal stage of the swallow are normal. IMPRESSION: 1. Normal modified barium swallow. 2. Please refer to the speech therapy report for recommendations. Reviewed, dictated and finalized at location A. PROCESSOR
--- NOTE | ~2023-12-19 | XR_ITS ---
Portable chest x-ray Comparison: 02/10/2023 Clinical History: Shortness of breath Findings: There is central congestive change with probable minimal bibasilar pulmonary edema/atelect asis. Cardiomediastinal silhouette is stable. Bones and soft tissues are unremarkable. Impression: Central congestive change and minimal bibasilar pulmonary edema/atelectasis. Reviewed, dictated and finalized at location . T ASSOCIATE Impression: Central congestive change and minimal bibasilar pulmonary edema/atelectasis.
--- NOTE | ~2023-12-19 | XR_ITS ---
Right Hand Technique: PA, oblique, and lateral views were obtained. Clinical History: Pain and swelling Findings: No acute fracture or dislocation is seen. Osseous alignment is anatomic. There is mild dege nerative change of the DIP joints at the second and third fingers. Soft tissues are unremarkable. Impression: Mild degenerative change, as above. Reviewed, dictated and finalized at location . NE REPAIRER Impression: Mild degenerative change, as above.
--- NOTE | 2023-12-19 12:26 | ED_ITS ---
HPI - General Adult General Chief complaint: Unspecified Stated complaint: R HAND PAIN,URI SYMPTOMS Time Seen by Provider: 12/19/23 11:17 History of Present Illness HPI narrative: 88-year-old female presenting to the emergency department for evaluation for cough congestion for the last 2 days and right wrist pain that started bothering her yesterday. Patient is unsure how she injured her wrist and denies any specific falls or injuries. Patient has been having worsening shortness breath over the last 2 days. Patient had previously been on 50 mg metoprolol b.i.d. but was switched to 100 mg of extended release metoprolol once daily. Patient takes this at 8:00 p.m. and has not yet taken it today. Related Data Home Medications Medication Instructions Recorded Confirmed loratadine 10 mg tablet 10 mg PO DAILY 01/11/19 12/19/23 magnesium oxide 400 mg PO DAILY 03/14/19 12/19/23 vit C 250 mg-vit E 90 mg-zinc 40 1 tablet PO BID 03/18/19 12/19/23 mg-copper 1 gy-byxjca-smcyjt capsule (PreserVision AREDS-2) apixaban 2.5 mg tablet (Eliquis) 2.5 mg PO BID 08/28/19 12/19/23 cholestyramine-aspartame 4 gram 4 g PO HS 12/19/23 12/19/23 oral powder for susp in a packet (Cholestyramine Light) flash glucose scanning reader 12/19/23 12/19/23 (FreeStyle Aashish 14 Day [place]) flash glucose sensor (FreeStyle 12/19/23 12/19/23 Aashish 14 Day Sensor kit) metoprolol succinate 100 mg 100 mg PO HS 12/19/23 12/19/23 tablet,extended release 24 hr Allergies Allergy/AdvReac Type Severity Reaction Status Date / Time adhesive tape Allergy Unknown Rash Verified 12/19/23 11:14 cetirizine Allergy Unknown Swelling Verified 12/19/23 11:14 of Lip/Tongue/Throat diazepam Allergy Unknown Cough Verified 12/19/23 11:14 gabapentin Allergy Unknown Confusion Verified 12/19/23 11:14 levetiracetam Allergy Unknown Confusion Verified 12/19/23 11:14 levofloxacin Allergy Unknown Confusion Verified 12/19/23 11:14 pregabalin Allergy Unknown Confusion Verified 12/19/23 11:14 zolpidem Allergy Unknown Hallucinati Verified 12/19/23 11:14 ng sleep aids - all AdvReac Severe Hallucinati Uncoded 12/19/23 11:14 ng Review of Systems Review of Systems: All systems reviewed & are unremarkable except as noted in HPI and below PMFSH Past Medical History Medical History (Updated 12/19/23 @ 17:57 by Marilyn Blanco PA-C) Anxiety Chronic anticoagulation Chronic atrial fibrillation Chronic kidney disease, stage 3 Colon cancer Deep venous thrombosis Gastroesophageal reflux disease Heart failure with reduced ejection fraction echocardiogram in 11/2021 showed moderate concentric LVH, moderate global left ventricular systolic dysfunction with an estimated ejection fraction of 30 to 35%, severe biatrial enlargement, and mild pulmonary hypertension Hypertension Insulin dependent type 2 diabetes mellitus Iron deficiency anemia Macular degeneration Peripheral neuropathy Primary stress urinary incontinence Severe obstructive sleep apnea intolerant to CPAP Transient ischemic attack Venous stasis ulcers Surgical History Surgical History (Updated 12/19/23 @ 17:46 by Marilyn Blanco PA-C) History of bilateral cataract extraction History of cholecystectomy History of hysterectomy History of right hemicolectomy (07/2019) right colon cancer Family History Family History Mother Family history of respiratory disorder, Onset Age: 21 Other Family history of cardiovascular disease Social History Social History (Updated 12/19/23 @ 17:54 by Marilyn Blanco PA-C) Social History: Healthcare power of assistant prosecuting attorney: Katelyn Bird, daughter. Code status: Full code. Smoking status: Never smoker Second hand tobacco smoke exposure: No Alcohol intake: never Substance use: never Substance use type: does not use Do You Feel Safe in your Home?: Yes Lack of Transportation: No Lack of Food: Never True Current Housing: I Have Housing Concerned About Future Housing: No Difficulty Paying Gas/Electric Bills: No Difficulty Paying for Meds: No Currently Unemployed: No Education: High School Diploma/GED Difficulty w/ Childcare or Family Care: No Additional living arrangements comments: . Lives in independent living at [place]. Ambulates with a walker. Spiritual care concerns: No Agree to blood products: Yes Exam Narrative: APPEARANCE: Well appearing, no pain, no distress, well-nourished. HEAD: normocephalic, atraumatic. EYES: PERRLA/EOMI, conjunctivae clear. NOSE: Normal no drainage EARS:TMS clear with good light reflex. THROAT: Pharynx clear, no exudate. NECK: Supple. No adenopathy, no masses. RESPIRATORY: Congestion and wheezing on arrival CARDIOVASCULAR: Regular rate and rhythm without murmurs rubs or gallops. ABDOMINAL: Soft, nontender, nondistended, normal bowel sounds MUSCULOSKELETAL: Right wrist tenderness to palpation NEURO: Alert. Cranial nerves II through XII intact. Good gait. Good coordination SKIN: Warm, dry. Normal Color Course Vital Signs Vital signs: Vital Signs Blood Pressure 139/96 H 12/19/23 11:28 Pulse Oximetry 98 12/19/23 11:28 Temperature 98.8 F 12/19/23 18:14 Pulse Rate 111 H 12/19/23 18:14 Respiratory Rate 20 12/19/23 18:14 Blood Pressure 113/56 L 12/19/23 18:14 Pulse Oximetry 98 12/19/23 18:14 Oxygen Delivery Room Air 12/19/23 12:47 Medical Decision Making [facility] Narrative Medical decision making narrative: 88-year-old female with history of CHF presents emergency department for evaluation for worsening shortness of breath. Patient is also complaining of right wrist pain. Patient is afebrile but does have a leukocytosis of 10.9 he moglobin of 13.1. Patient's INR is 2.2. Patient does have an elevated potassium of 5.4. Patient's creatinine is 1.5 which is similar to her baseline. Patient's BNP is elevated at 4300. Patient was negative for influenza RSV and for COVID. Patient did have significant wheezing and upon arrival emergency department and she was treated with albuterol. Patient then had onset of AFib with RVR. Patient was treated with multiple doses of Lopressor but still remained in RVR. With patient's injured wrist she is not able to ambulate using the walker she needs to ambulate with. She currently resides in an independent living and they do not have the facilities to take care of her with her broken wrist. Patient was treated with her p.o. dose of metoprolol. Differential Diagnosis Differential Diagnosis: Hand fracture, wrist fracture, pneumonia, pulmonary embolism, COVID, RSV, influenza, pulmonary edema Vital Signs Vital Signs: Vital Signs Blood Pressure 139/96 H 12/19/23 11:28 Pulse Oximetry 98 12/19/23 11:28 Temperature 98.8 F 12/19/23 18:14 Pulse Rate 111 H 12/19/23 18:14 Respiratory Rate 20 12/19/23 18:14 Blood Pressure 113/56 L 12/19/23 18:14 Pulse Oximetry 98 12/19/23 18:14 Oxygen Delivery Room Air 12/19/23 12:47 Lab Data Lab results reviewed: Yes I reviewed the patient's lab results. 12/19/23 13:58 12/19/23 13:58 Labs: Lab Results 12/19/23 12/19/23 Range/Units 12:01 13:58 WBC 10.9 H (4.5-10.0) K/mm3 RBC 4.69 (4.2-5.4) M/mm3 Hgb 13.1 (12.0-15.0) g/dL Hct 41.0 (37.0-47.0) % MCV 87.4 (80-100) fl MCH 27.9 (26-34) pg MCHC 32.0 (32-36) g/dl RDW 17.8 H (11.5-14.5) % Plt Count 214 (150-375) k/mm3 MPV 10.8 H (7.4-10.4) fl Immature Gran % (Auto) 0.5 (0-0.5) % Neut % (Auto) 74.2 H (45.5-73.1) % Lymph % (Auto) 10.8 L (18.3-44.2) % Steele % (Auto) 14.0 H (2.6-8.5) % Eos % (Auto) 0.2 (0-4.4) % Baso % (Auto) 0.3 (0.2-1.2) % Lymph # (Auto) 1.18 (0.9-3.2) K/mm3 Steele # (Auto) 1.5 H (0.1-0.6) K/mm3 Eos # (Auto) 0.0 (0-0.3) K/mm3 Baso # (Auto) 0.0 (0.0-0.1) K/mm3 Abs Immat Gran (auto) 0.06 H (0.00-0.031) K/mm3 Absolute Neuts (auto) 8.1 H (1.3-6.7) K/mm3 Absolute Nucleated RBC 0.000 (0.0-0.012) K/mm3 Nucleated RBC % 0.0 (0.0-0.2) % PT 25.3 H (11.1-14.7) Seconds INR 2.2 APTT 40.6 H (22.3-36.8) Seconds Sodium 140 (137-145) mmol/L Potassium 5.4 H (3.4-5.0) mmol/L Chloride 107 (98-107) mmol/L Carbon Dioxide 21 L (22-30) mmol/L Anion Gap 12 (4-12) mmol/L BUN 26 H (7-17) mg/dL Creatinine 1.50 H (0.7-1.0) mg/dL Estim Creat Clear Calc 24 ml/min Estimated GFR 33 L (59 - ) Glucose 207 H (65-110) mg/dL Calcium 9.5 (8.4-10.2) mg/dL Total Bilirubin 2.4 H (0.2-1.3) mg/dL AST 16 (14-36) U/L ALT 10 (6-35) U/L Alkaline Phosphatase 210 H (38-126) U/L NT-Pro-B Natriuret Pep 4300 H (19.9-100) pg/mL Total Protein 8.0 (6.3-8.2) g/dL Albumin 4.1 (3.5-5.1) g/dL Influenza A (RT-PCR) Negative (Negative) Influenza B (RT-PCR) Negative (Negative) RSV (RT-PCR) Negative (Negative) SARS-CoV-2 RNA (RT-PCR) Negative (Negative) Imaging Data Radiologist's impression: Impressions Chest X-Ray 12/19/23 12:43 Impression: Central congestive change and minimal bibasilar pulmonary edema/atelectasis. Wrist X-Ray 12/19/23 12:43 Impression: Questionable small acute fracture the dorsal triquetrum on lateral view. Mild degenerative change at the first CMC joint. Hand X-Ray 12/19/23 12:44 Impression: Mild degenerative change, as above. ECG Data EKG #1: EKG Interpretation: tachycardia, atrial fibrillation, non-specific ST hill ges, normal QRS and left axis Critical Care Time Critical Care Time Critical Care Time: Yes Total Critical Care Time: 35 Discharge Plan Discharge Clinical Impression: Fracture of wrist, Pulmonary vascular congestion, Atrial fibrillation with rapid ventricular response, Generalized weakness Patient Disposition: Still a Patient Condition: Serious
[2023-12-19] MEDS: ALBUTEROL SULFATE NEB 2.5 MG/3 ML INH INHALATION (12:33)
[2023-12-19] MEDS: ACETAMINOPHEN 500 MG TABLET 1000 MG PO (12:44)
[2023-12-19 12:46] LABS: Influenza A QL RT-PCR Negative (Negative); Influenza B QL RT-PCR Negative (Negative); RSV RNA, RT-PCR Negative (Negative); SARS-CoV-2 RNA PCR Negative (Negative)
--- NOTE | 2023-12-19 13:37 | ECG_ITS ---
Test Date: 2023-12-19 13:30:11 Measurements Intervals Exchange Rate: 122 P: 0 NJ: 0 QRS: -31 QRSD: 100 T: 137 QT: 310 QTc: 443 Interpretive Statements ATRIAL FIBRILLATION WITH RAPID VENTRICULAR RESPONSE LEFT AXIS DEVIATION LOW QRS VOLTAGE IN PRECORDIAL LEADS INCOMPLETE RIGHT BUNDLE BRANCH BLOCK CANNOT R/O SEPTAL INFARCT, AGE INDETERMINATE ST-T WAVE ABNORMALITY IN HIGH LATERAL LEADS- CONSIDER ISCHEMIA BASELINE ARTIFACT- I, II, AVR ABNORMAL ECG No previous ECG available for comparison Electronically Signed On 12-19-2023 18:38:57 [facility] by Alvin Romo D.O.
[2023-12-19] MEDS: METOPROLOL TARTRATE INJ 5 MG/5 ML VIAL IV PUSH ×2 (13:43→14:18)
[2023-12-19 14:03] LABS: Basophils Percent Auto 0.3 % (0.2-1.2); Eosinophils Percent Auto 0.2 % (0-4.4); Hemoglobin 13.1 g/dL (12.0-15.0); Immature Granulocyte Absolute 0.06 K/mm3 (0.00-0.031); Immature Granulocyte Percent A 0.5 % (0-0.5); Lymphocytes Absolute Auto 1.18 K/mm3 (0.9-3.2); Lymphocytes Percent Auto 10.8 % (18.3-44.2); Mean Corpuscular Hemoglobin 27.9 pg (26-34); Mean Corpuscular Volume 87.4 fl (80-100); Mean Platelet Volume 10.8 fl (7.4-10.4); Monocytes Absolute Auto 1.5 K/mm3 (0.1-0.6); Neutrophils Absolute Auto 8.1 K/mm3 (1.3-6.7); Neutrophils Percent Auto 74.2 % (45.5-73.1); Platelet Count Result 214 k/mm3 (150-375); Red Blood Count 4.69 M/mm3 (4.2-5.4); Red Cell Distribution Width 17.8 % (11.5-14.5); White Blood Count 10.9 K/mm3 (4.5-10.0)
[2023-12-19 14:13] LABS: Alanine Aminotransferase 10 U/L (6-35); Albumin Level 4.1 g/dL (3.5-5.1); Alkaline Phosphatase 210 U/L (38-126); Anion Gap 12 mmol/L (4-12); Aspartate Amino Transferase 16 U/L (14-36); Bilirubin,Total 2.4 mg/dL (0.2-1.3); Blood Urea Nitrogen 26 mg/dL (7-17); Calcium 9.5 mg/dL (8.4-10.2); Carbon Dioxide 21 mmol/L (22-30); Chloride 107 mmol/L (98-107); Estimated CRCL calculation 24 ml/min; Estimated Glomerular Filt Rate 33; Glucose 207 mg/dL (65-110); Potassium 5.4 mmol/L (3.4-5.0); Sodium 140 mmol/L (137-145)
[2023-12-19 14:18] LABS: INR 2.2; Partial Thromboplastin Time 40.6 Seconds (22.3-36.8); Prothrombin Time 25.3 Seconds (11.1-14.7)
[2023-12-19 14:22] LABS: NT Pro B Type Natriuretic Pept 4300 pg/mL (19.9-100)
[2023-12-19] MEDS: METOPROLOL SUCCINATE EXT REL 100 MG TABCR PO (16:14)
--- NOTE | 2023-12-19 16:28 | PC.NURSE ---
called dietary and ordered dinner tray for pt at this time
--- NOTE | 2023-12-19 17:35 | P.HP_ITS ---
H&P: HPI History of Present Illness Date/Time: 12/19/23 17:35 Chief Complaint: Right wrist pain. Narrative: This is a pleasant 88-year-old female with chronic atrial fibrillation on anticoagulation, heart failure with reduced ejection fraction, untreated obstructive sleep apnea, hypertension, insulin-dependent type 2 diabetes mellitus, and chronic kidney disease stage 3 who presented to the emergency department for evaluation of right wrist pain. The patient provides the following history. She has had pain on the dorsum of the right wrist. A few days ago she was trying to close the [place] blind when she lost her balance and fell for into the wall, hitting her left upper arm and right wrist. She did not have any pain at that time however last night began to have pain right wrist which has been pretty significant so she came in for evaluation. In the ED she was noted to be a bit short of breath with further questioning she reports that sometime last week she and her daughter had upper respiratory symptoms including a cough productive green phlegm, mild sore throat, and shortness of breath with exertion. Her symptoms have improved but she still has the cough and shortness of breath. Her appetite has still not rebounded and she occasionally has a bit nausea. On exam she has swelling of the lower legs which she states comes and goes. She denies fever, chills, sweats, sore throat, orthopnea, chest pain, pleuritic pain, palpitations, vomiting, abdominal pain, diarrhea, dysuria, and calf pain. In the ED: Vital signs on arrival include a temperature of 97.9?, blood pressure 149/107, pulse 83, respiratory rate 19, SpO2 95% on room air. Labs were significant for WBC count of 10.9, INR 2.2, potassium 5.4, BUN 26, creatinine 1.50, glucose 207, total bilirubin 2.4, proBNP 4300. She tested negative for influenza, RSV, and COVID. Right wrist x-ray showed a questionable small acute fracture of the dorsal triquetrum on lateral view. Chest x-ray showed central congestive changes and minimal bibasilar pulmonary edema/atelectasis. Right wrist was placed in a splint. She was administered a nebulizer treatment which threw her into rapid atrial fibrillation for which she has received 2 separate doses of Lopressor 5 mg IV without much improvement in her rate and she is being admitted in this setting. Review of Systems Review of Systems: 12 systems were reviewed and are negativ e except for as per HPI. [facility] Past Medical History Medical History (Updated 12/19/23 @ 17:57 by Marilyn Blanco PA-C) Anxiety Chronic anticoagulation Chronic atrial fibrillation Chronic kidney disease, stage 3 Colon cancer Deep venous thrombosis Gastroesophageal reflux disease Heart failure with reduced ejection fraction echocardiogram in 11/2021 showed moderate concentric LVH, moderate global left ventricular systolic dysfunction with an estimated ejection fraction of 30 to 35%, severe biatrial enlargement, and mild pulmonary hypertension Hypertension Insulin dependent type 2 diabetes mellitus Iron deficiency anemia Macular degeneration Peripheral neuropathy Primary stress urinary incontinence Severe obstructive sleep apnea intolerant to CPAP Transient ischemic attack Venous stasis ulcers Surgical History Surgical History (Updated 12/19/23 @ 17:46 by Marilyn Blanco PA-C) History of bilateral cataract extraction History of cholecystectomy History of hysterectomy History of right hemicolectomy (07/2019) right colon cancer Family History Family History Mother Family history of respiratory disorder, Onset Age: 21 Other Family history of cardiovascular disease Social History Social History (Updated 12/19/23 @ 21:16 by Marilyn Blanco PA-C) Social History: Healthcare power of compliance attorney: Katelyn Bird, daughter. Code status: Do not resuscitate. Smoking status: Never smoker Second hand tobacco smoke exposure: No Alcohol intake: never Substance use: never Substance use type: does not use Do You Feel Safe in your Home?: Yes Lack of Transportation: No Lack of Food: Never True Current Housing: I Have Housing Concerned About Future Housing: No Difficulty Paying Gas/Electric Bills: No Difficulty Paying for Meds: No Currently Unemployed: No Education: High School Diploma/GED Difficulty w/ Childcare or Family Care: No Additional living arrangements comments: . Lives in independent living at [place]. Ambulates with a walker. Spiritual care concerns: No Agree to blood products: Yes Meds Home Medications and Allergies Home Medications Medication Instructions Recorded Confirmed Type loratadine 10 mg tablet 10 mg PO DAILY 01/11/19 12/19/23 History furosemide 40 mg tablet 40 mg PO BID #60 tabs 02/26/19 12/19/23 Rx potassium chloride 10 mEq 40 meq PO TID #30 tabs 02/26/19 12/19/23 Rx tablet,extended release (K-Tab) magnesium oxide 400 mg PO DAILY 03/14/19 12/19/23 History vit C 250 mg-vit E 90 mg-zinc 40 1 tablet PO BID 03/18/19 12/19/23 History mg-copper 1 ds-kiyzgm-aanzki capsule (PreserVision AREDS-2) apixaban 2.5 mg tablet (Eliquis) 2.5 mg PO BID 08/28/19 12/19/23 History insulin glargine U-300 conc 300 10 unit (0.0333 mL) subcut DAILY 03/25/23 12/19/23 Rx unit/mL (1.5 mL) subcutaneous pen #6 mL (Toujeo SoloStar U-300 Insulin) insulin lispro 100 unit/mL See Rx Instructions .Route 08/04/23 12/19/23 Rx subcutaneous pen .COMPLEX #15 mL pen needle, diabetic 31 gauge x #400 ea 11/04/23 12/19/23 Rx 5/16 pantoprazole 40 mg tablet,delayed 40 mg PO QAM #90 tabs 11/29/23 12/19/23 Rx release cholestyramine-aspartame 4 gram 4 g PO HS 12/19/23 12/19/23 History oral powder for susp in a packet (Cholestyramine Light) flash glucose scanning reader 12/19/23 12/19/23 History (FreeStyle Aashish 14 Day [place]) flash glucose sensor (FreeStyle 12/19/23 12/19/23 History Aashish 14 Day Sensor kit) metoprolol succinate 100 mg 100 mg PO HS 12/19/23 12/19/23 History tablet,extended release 24 hr Allergies Allergy/AdvReac Type Severity Reaction Status Date / Time adhesive tape Allergy Unknown Rash Verified 12/19/23 11:14 cetirizine Allergy Unknown Swelling Verified 12/19/23 11:14 of Lip/Tongue/Throat diazepam Allergy Unknown Cough Verified 12/19/23 11:14 gabapentin Allergy Unknown Confusion Verified 12/19/23 11:14 levetiracetam Allergy Unknown Confusion Verified 12/19/23 11:14 levofloxacin Allergy Unknown Confusion Verified 12/19/23 11:14 pregabalin Allergy Unknown Confusion Verified 12/19/23 11:14 zolpidem Allergy Unknown Hallucinati Verified 12/19/23 11:14 ng sleep aids - all AdvReac Severe Hallucinati Uncoded 12/19/23 11:14 ng Vital Signs Vital Signs - 24 hr 12/19/23 11:33 12/19/23 11:41 12/19/23 12:30 Temperature 97.9 F Pulse Rate 83 83 Respiratory Rate 19 20 18 Blood Pressure 149/107 H Pulse Oximetry 95 97 Oxygen Delivery Room Air 12/19/23 12:30 12/19/23 12:46 12/19/23 12:47 Temperature Pulse Rate 84 121 H Respiratory Rate 18 20 Blood Pressure 115/73 Pulse Oximetry 96 100 Oxygen Delivery Room Air 12/19/23 13:43 12/19/23 13:55 12/19/23 11:28 Temperature Pulse Rate 146 H 125 H Respiratory Rate 27 H Blood Pressure 140/77 139/96 H Pulse Oximetry 99 98 Oxygen Delivery 12/19/23 11:34 12/19/23 11:45 12/19/23 11:46 Temperature Pulse Rate Respiratory Rate Blood Pressure 154/87 H Pulse Oximetry 97 96 97 Oxygen Delivery 12/19/23 12:00 12/19/23 12:03 12/19/23 12:16 Temperature Pulse Rate Respiratory Rate Blood Pressure 134/115 H 132/100 H Pulse Oximetry 97 100 Oxygen Delivery 12/19/23 12:17 12/19/23 12:31 12/19/23 12:47 Temperature Pulse Rate 124 H Respiratory Rate 23 H Blood Pressure 139/83 115/73 Pulse Oximetry 96 88 L Oxygen Delivery 12/19/23 12:48 12/19/23 13:00 12/19/23 13:01 Temperature Pulse Rate 129 H 134 H 131 H Respiratory Rate 18 23 H 19 Blood Pressure 156/98 H Pulse Oximetry 96 96 99 Oxygen Delivery 12/19/23 13:15 12/19/23 13:16 12/19/23 13:33 Temperature Pulse Rate 150 H 128 H 133 H Respiratory Rate 34 H 26 H 31 H Blood Pressure 135/88 Pulse Oximetry 97 97 95 Oxygen Delivery 12/19/23 13:45 12/19/23 14:03 12/19/23 14:18 Temperature Pulse Rate 113 H 118 H 119 H Respiratory Rate 24 H 27 H Blood Pressure Pulse Oximetry Oxygen Delivery 12/19/23 14:31 12/19/23 15:48 12/19/23 16:14 Temperature Pulse Rate 121 H 124 H 113 H Respiratory Rate 17 Blood Pressure 127/83 Pulse Oximetry 99 Oxygen Delivery 12/19/23 16:28 12/19/23 17:05 Temperature Pulse Rate 110 H 118 H Respiratory Rate 25 H 20 Blood Pressure 104/62 108/83 Pulse Oximetry 98 95 Oxygen Delivery Exam Narrative: General: Mildly ill-appearing elderly female sitting up in bed in no acute distress. Weight: 83.2 kg. BMI: 32.5. HEENT: PERRL, EOMI. Sclera anicteric. Conjunctiva mildly injected. Tacky mucous membranes. Neck: Supple. No jugular venous distention. Respiratory: Mild conversational dyspnea but she appears in no acute distress. Fine crackles heard at the bases. Occasional rhonchi which clear with cough. Cardiovascular: Irregularly irregular rate and rhythm. Gastrointestinal: Abdomen is soft and nontender with positive bowel sounds. Bladder feels distended. Skin: Warm and dry. Lower extremity show evidence of chronic stasis dermatitis and some erythema without warmth. Extremities: No cyanosis or clubbing. 2+ lower extremity edema to the shins. No palpable knots or cords. Negative Luis Daniel sign bilaterally. Neurological: Alert. Cranial nerves 2-12 are grossly intact. No gross focal deficits to casual conversation. Psychiatric: Pleasant and cooperative with normal mood and affect. Judgment and insight intact. H&P: Results Labs Labs: Short CBC 12/19/23 Range/Units 13:58 WBC 10.9 H (4.5-10.0) K/mm3 Hgb 13.1 (12.0-15.0) g/dL Hct 41.0 (37.0-47.0) % Plt Count 214 (150-375) k/mm3 [facility] 12/19/23 13:58 Sodium 140 Potassium 5.4 H Chloride 107 Carbon Dioxide 21 L BUN 26 H Creatinine 1.50 H Glucose 207 H Calcium 9.5 Liver Function 12/19/23 Range/Units 13:58 Total Bilirubin 2.4 H (0.2-1.3) mg/dL AST 16 (14-36) U/L ALT 10 (6-35) U/L Alkaline Phosphatase 210 H (38-126) U/L Albumin 4.1 (3.5-5.1) g/dL Imaging Chest X-Ray 12/19/23 12:43 Impression: Central congestive change and minimal bibasilar pulmonary edema/atelectasis. Wrist X-Ray 12/19/23 12:43 Impression: Questionable small acute fracture the dorsal triquetrum on lateral view. Mild degenerative change at the first CMC joint. Hand X-Ray 12/19/23 12:44 Impression: Mild degenerative change, as above. Assessment and Plan Assessment and plan (1) Atrial fibrillation with rapid ventricular response: Code(s): I48.91 - Unspecified atrial fibrillation Status: Acute (2) Heart failure with reduced ejection fraction: Code(s): I50.20 - Unspecified systolic (congestive) heart failure Status: Acute (3) Right wrist pain: Code(s): M25.531 - Pain in right wrist Status: Acute (4) Hyperkalemia: Code(s): E87.5 - Hyperkalemia Status: Acute (5) Chronic kidney disease, stage 3: Code(s): N18.30 - Chronic kidney disease, stage 3 unspecified Status: Acute (6) Chronic anticoagulation: Code(s): Z79.01 - computer terminal operator (current) use of anticoagulants Status: Acute (7) Insulin dependent type 2 diabetes mellitus: Code(s): E11.9 - Type 2 diabetes mellitus without complications; Z79.4 - computer terminal operator (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 She also reports having a cough and congestion the past couple of days. Labs, imaging, EKG, and all reports were personally reviewed. Wrist x-ray showed possible right triquetrum fracture for which she has been placed in a splint. After receiving a nebulizer treatment she went into rapid atrial fibrillation and will be given a dose of p.o. metoprolol to see if that will help her rate. Chest x-ray shows mild pulmonary edema and central congesti ve changes, she is edematous, and proBNP is elevated. She will be diuresed with furosemide 40 mg IV with close monitoring of volume status, renal function, and electrolytes. Repeat potassium this evening to ensure it is improving. Her medication reconciliation states that she takes 40 mEq of potassium chloride today which will likely need to be readdressed. Kidney function is stable. Continue basal insulin. Initiate sliding scale insulin, Accu-Cheks, and hypoglycemic protocol. Her home medications will be reviewed and resumed as appropriate. Findings and treatment plan were discussed with the patient. Questions were solicited and answered to satisfaction. The patient's medical management will be taken over by the hospitalist team in a.m. Quality VTE Prophylaxis VTE prophylaxis: pharmacologic ordered (on apixaban) The patient has been admitted under observation status. Hospitalist MIPS Advance Care Plan I have confirmed that the patient's Advanced Care Plan is present, code status is documented, or surrogate decision maker is listed in patient medical record.: Yes Medication Reconciliation I have utilized all available resources to obtain, update and review the patients current medications (includes all prescriptions, OTC, herbals, cannabis, and nutritional supplements).: Yes
[2023-12-19 17:54] LABS: Glucose Point of Care 249 mg/dl (65-105)
--- NOTE | 2023-12-19 18:25 | PC.NURSE ---
Patient arrived from ED via recliner at 1730. Patient stable and alert and oriented. Patient has continuos glucose monitor on left arm. Patient transferred back to bed x2 assist. Vitals and poc bgl stable.
--- NOTE | 2023-12-19 18:33 | PC.NURSE ---
Patient states she will not be using CGM during hospitalization.
[2023-12-19] MEDS: FUROSEMIDE INJ 40 MG/4 ML VIAL IV PUSH (20:51)
[2023-12-19 21:39] LABS: Add Urine Microscopic? YES; Appearance Urine Cloudy (Clear); Bacteria Urine 4+ /hpf; Bilirubin Urine Negative (Negative); Blood Urine 1+ (Negative); Color Urine Yellow (Yellow); Glucose Urine UA Negative (Negative); Ketones Urine Negative (Negative); Leukocyte Esterase Ur 2+ LEU/UL (Negative); Nitrate Urine Negative (Negative); Protein Urine Trace mg/dL (Negative); RBC Urine 0-2 /hpf (0-2); Specific Grav Ur 1.012 (1.001-1.035); Squamous Epithelial Cell Urine None Seen /hpf (Few); Urobilinogen Urine 0.2 mg/dL (<2.0); WBC Urine 21-50 /hpf (0-3)
[2023-12-19 21:47] LABS: Potassium 5.4 mmol/L (3.4-5.0)
[2023-12-19 21:50] LABS: Bilirubin Indirect 1.7 mg/dL (0-1.1)
[2023-12-19] MEDS: APIXABAN 2.5 MG TABLET PO (22:13)
[2023-12-20] VITALS (15 sets, daily range): BP systolic 103–144; BP diastolic 50–68; PULSE 80–130; RESP 20–22; TEMP 36.4–37.1; O2SAT 91–99
[2023-12-20 04:57] LABS: Hematocrit 38.7 % (37.0-47.0); Hemoglobin 12.1 g/dL (12.0-15.0); Mean Corpuscular HGB Conc 31.3 g/dl (32-36); Mean Corpuscular Hemoglobin 27.2 pg (26-34); Mean Platelet Volume 10.9 fl (7.4-10.4); Platelet Count Result 202 k/mm3 (150-375); Red Blood Count 4.45 M/mm3 (4.2-5.4); Red Cell Distribution Width 17.8 % (11.5-14.5); White Blood Count 8.4 K/mm3 (4.5-10.0)
[2023-12-20 05:15] LABS: Alanine Aminotransferase 8 U/L (6-35); Albumin Level 3.6 g/dL (3.5-5.1); Alkaline Phosphatase 163 U/L (38-126); Anion Gap 11 mmol/L (4-12); Aspartate Amino Transferase 15 U/L (14-36); Bilirubin,Total 2.3 mg/dL (0.2-1.3); Blood Urea Nitrogen 28 mg/dL (7-17); Calcium 9.3 mg/dL (8.4-10.2); Carbon Dioxide 24 mmol/L (22-30); Chloride 104 mmol/L (98-107); Estimated CRCL calculation 24 ml/min; Estimated Glomerular Filt Rate 33; Glucose 160 mg/dL (65-110); Magnesium 1.7 mg/dL (1.6-2.3); Potassium 3.9 mmol/L (3.4-5.0); Sodium 139 mmol/L (137-145)
[2023-12-20] MEDS: LORATADINE 10 MG TABLET PO (09:09)
[2023-12-20] MEDS: OPTI-GEN TAB 1 TABLET PO ×2 (09:09→16:38)
[2023-12-20] MEDS: MAGNESIUM OXIDE 400 MG TABLET PO (09:09)
[2023-12-20] MEDS: PANTOPRAZOLE 40 MG TABLET PO (09:10)
[2023-12-20] MEDS: FUROSEMIDE INJ 40 MG/4 ML VIAL IV PUSH ×2 (09:10→16:38)
[2023-12-20] MEDS: APIXABAN 2.5 MG TABLET PO ×2 (09:10→20:51)
[2023-12-20] MEDS: ACETAMINOPHEN 325 MG TABLET 650 MG PO (09:23)
--- NOTE | 2023-12-20 10:15 | PM.CNCAR ---
Assessment and Plan Assessment and plan (1) Heart failure with reduced ejection fraction: Code(s): I50.20 - Unspecified systolic (congestive) heart failure Status: Acute Assessment and Plan: Acute on chronic systolic heart failure. Agree with IV furosemide for now Strict I&O Daily weights Daily BMP while diuresing (2) Chronic atrial fibrillation: Code(s): I48.20 - Chronic atrial fibrillation, unspecified Status: Acute Assessment and Plan: Now with RVR. She is asymptomatic in this regard and her rate now is generally below 120bpm Continue with Metoprolol succinate 100mg daily. Can up titrate if need be. p.r.n. 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 History of Present Illness History of Present Illness Consult date/time: 12/20/23 10:15 Requesting physician: Marilyn Blanco PA-C Consult reason: atrial fibrillation and congestive heart failure Reason For Visit: Wrist Fracture/Exertional SOB/Afib with RVR Narrative: Radha Salmeron is an 88 year old female with chronic atrial fibrillation, chronic systolic heart failure, pulmonary hypertension, and hypertension. This is a patient who follows with Dr. Monteiro. She came to the hospital because of right wrist pain. During her evaluation in the emergency department she went into Afib with rapid ventricular response and was admitted because of this. She is also complaining of productive cough, congestion, and worsening lower extremity edema. Despite having tachycardia she was not experiencing any palpitations. She does report shortness of breath over the past week which she attribute to a cold. She also has orthopnea and states she can't lay flat because it makes her feel panicked. She is mildly tachycardic at the time of my evaluation as she has recently finished working with physical therapy but she is asymptomatic with this. Review of Systems Review of Systems: All systems reviewed & are unremarkable except as noted in HPI and below PMFSH Past Medical History Medical History Anxiety Chronic anticoagulation Chronic atrial fibrillation Chronic kidney disease, stage 3 Colon cancer Deep venous thrombosis Gastroesophageal reflux disease Heart failure with reduced ejection fraction echocardiogram in 11/2021 showed moderate concentric LVH, moderate global left ventricular systolic dysfunction with an estimated ejection fraction of 30 to 35%, severe biatrial enlargement, and mild pulmonary hypertension Hypertension Insulin dependent type 2 diabetes mellitus Iron deficiency anemia Macular degeneration Peripheral neuropathy Primary stress urinary incontinence Severe obstructive sleep apnea intolerant to CPAP Transient ischemic attack Venous stasis ulcers Surgical History Surgical History History of bilateral cataract extraction History of cholecystectomy History of hysterectomy History of right hemicolectomy (07/2019) right colon cancer Family History Family History Mother Family history of respiratory disorder, Onset Age: 21 Other Family history of cardiovascular disease Social History Social History Social History: Healthcare power of environmental attorney: Katelyn Bird, daughter. Code status: Do not resuscitate. Smoking status: Never smoker Second hand tobacco smoke exposure: No Alcohol intake: never Substance use: never Substance use type: does not use Do You Feel Safe in your Home?: Yes Lack of Transportation: No Lack of Food: Never True Current Housing: I Have Housing Concerned About Future Housing: No Difficulty Paying Gas/Electric Bills: No Difficulty Paying for Meds: No Currently Unemployed: No Education: High School Diploma/GED Difficulty w/ Childcare or Family Care: No Additional living arrangements comments: . Lives in independent living at [place]. Ambulates with a walker. Spiritual care concerns: No Agree to blood products: Yes Meds Home Medications and Allergies Home Medications Medication Instructions Recorded Confirmed Type loratadine 10 mg tablet 10 mg PO DAILY 01/11/19 12/19/23 History furosemide 40 mg tablet 40 mg PO BID #60 tabs 02/26/19 12/19/23 Rx potassium chloride 10 mEq 40 meq PO TID #30 tabs 02/26/19 12/19/23 Rx tablet,extended release (K-Tab) magnesium oxide 400 mg PO DAILY 03/14/19 12/19/23 History vit C 250 mg-vit E 90 mg-zinc 40 1 tablet PO BID 03/18/19 12/19/23 History mg-copper 1 [id number] capsule (PreserVision AREDS-2) apixaban 2.5 mg tablet (Eliquis) 2.5 mg PO BID 08/28/19 12/19/23 History insulin glargine U-300 conc 300 10 unit (0.0333 mL) subcut DAILY 03/25/23 12/19/23 Rx unit/mL (1.5 mL) subcutaneous pen #6 mL (Toujeo SoloStar U-300 Insulin) insulin lispro 100 unit/mL See Rx Instructions .Route 08/04/23 12/19/23 Rx subcutaneous pen .COMPLEX #15 mL pen needle, diabetic 31 gauge x #400 ea 11/04/23 12/19/23 Rx 5/16 pantoprazole 40 mg tablet,delayed 40 mg PO QAM #90 tabs 11/29/23 12/19/23 Rx release cholestyramine-aspartame 4 gram 4 g PO HS 12/19/23 12/19/23 History oral powder for susp in a packet (Cholestyramine Light) flash glucose scanning reader 12/19/23 12/19/23 History (FreeStyle Aashish 14 Day [place]) flash glucose sensor (FreeStyle 12/19/23 12/19/23 History Aashish 14 Day Sensor kit) metoprolol succinate 100 mg 100 mg PO HS 12/19/23 12/19/23 History tablet,extended release 24 hr Allergies Allergy/AdvReac Type Severity Reaction Status Date / Time adhesive tape Allergy Unknown Rash Verified 12/19/23 11:14 cetirizine Allergy Unknown Swelling Verified 12/19/23 11:14 of Lip/Tongue/Throat diazepam Allergy Unknown Cough Verified 12/19/23 11:14 gabapentin Allergy Unknown Confusion Verified 12/19/23 11:14 levetiracetam Allergy Unknown Confusion Verified 12/19/23 11:14 levofloxacin Allergy Unknown Confusion Verified 12/19/23 11:14 pregabalin Allergy Unknown Confusion Verified 12/19/23 11:14 zolpidem Allergy Unknown Hallucinati Verified 12/19/23 11:14 ng sleep aids - all AdvReac Severe Hallucinati Uncoded 12/19/23 11:14 ng Vital Signs Vital Signs - 24 hr 12/19/23 11:33 12/19/23 11:41 12/19/23 12:30 Temperature 36.6 C Pulse Rate 83 83 Respiratory Rate 19 20 18 Blood Pressure 149/107 H Pulse Oximetry 95 97 Oxygen Delivery Room Air 12/19/23 12:30 12/19/23 12:46 12/19/23 12:47 Temperature Pulse Rate 84 121 H Respiratory Rate 18 20 Blood Pressure 115/73 Pulse Oximetry 96 100 Oxygen Delivery Room Air 12/19/23 13:43 12/19/23 13:55 12/19/23 11:28 Temperature Pulse Rate 146 H 125 H Respiratory Rate 27 H Blood Pressure 140/77 139/96 H Pulse Oximetry 99 98 Oxygen Delivery 12/19/23 11:34 12/19/23 11:45 12/19/23 11:46 Temperature Pulse Rate Respiratory Rate Blood Pressure 154/87 H Pulse Oximetry 97 96 97 Oxygen Delivery 12/19/23 12:00 12/19/23 12:03 12/19/23 12:16 Temperature Pulse Rate Respiratory Rate Blood Pressure 134/115 H 132/100 H Pulse Oximetry 97 100 Oxygen Delivery 12/19/23 12:17 12/19/23 12:31 12/19/23 12:47 Temperature Pulse Rate 124 H Respiratory Rate 23 H Blood Pressure 139/83 115/73 Pulse Oximetry 96 88 L Oxygen Delivery 12/19/23 12:48 12/19/23 13:00 12/19/23 13:01 Temperature Pulse Rate 129 H 134 H 131 H Respiratory Rate 18 23 H 19 Blood Pressure 156/98 H Pulse Oximetry 96 96 99 Oxygen Delivery 12/19/23 13:15 12/19/23 13:16 12/19/23 13:33 Temperature Pulse Rate 150 H 128 H 133 H Respiratory Rate 34 H 26 H 31 H Blood Pressure 135/88 Pulse Oximetry 97 97 95 Oxygen Delivery 12/19/23 13:45 12/19/23 14:03 12/19/23 14:18 Temperature Pulse Rate 113 H 118 H 119 H Respiratory Rate 24 H 27 H Blood Pressure Pulse Oximetry Oxygen Delivery 12/19/23 14:31 12/19/23 15:48 12/19/23 16:14 Temperature Pulse Rate 121 H 124 H 113 H Respiratory Rate 17 Blood Pressure 127/83 Pulse Oximetry 99 Oxygen Delivery 12/19/23 16:28 12/19/23 17:05 12/19/23 18:14 Temperature 37.1 C Pulse Rate 110 H 118 H 111 H Respiratory Rate 25 H 20 20 Blood Pressure 104/62 108/83 113/56 L Pulse Oximetry 98 95 98 Oxygen Delivery 12/19/23 18:00 12/19/23 20:03 12/19/23 23:48 Temperature 37.2 C 37.1 C Pulse Rate 117 H 114 H 101 H Respiratory Rate 20 20 Blood Pressure 121/50 L 111/79 Pulse Oximetry 97 99 Oxygen Delivery 12/19/23 20:00 12/20/23 00:00 12/19/23 20:00 Temperature Pulse Rate 122 H Respiratory Rate Blood Pressure Pulse Oximetry Oxygen Delivery Room Air Room Air 12/19/23 22:00 12/20/23 00:00 12/20/23 02:00 Temperature Pulse Rate 112 H 105 H 108 H Respiratory Rate Blood Pressure Pulse Oximetry Oxygen Delivery 12/20/23 04:00 12/20/23 04:00 12/20/23 04:54 Temperature 37.1 C Pulse Rate 86 93 Respiratory Rate 20 Blood Pressure 103/57 L Pulse Oximetry 99 Oxygen Delivery Room Air 12/20/23 06:00 12/20/23 08:27 12/20/23 09:09 Temperature Pulse Rate 92 Respiratory Rate Blood Pressure Pulse Oximetry 91 Oxygen Delivery Room Air Room Air 12/20/23 08:00 Temperature 37.1 C Pulse Rate 80 Respiratory Rate 22 H Blood Pressure 107/64 Pulse Oximetry 94 Oxygen Delivery Exam Const: General: comfortable, no acute distress, alert and awake Orientation/consciousness: patient oriented x3 HENMT: Head: normal to inspection Eyes: General: appearance normal, both eyes and all related structures Pupils: Equal, round and reactive pupils present Neck: Neck: normal visual inspection, supple and no JVD Carotids: normal carotid upstroke Resp: Effort & Inspection: normal respiratory effort Auscultation: clear to auscultation bilaterally, crackles and diminished lung sounds Cardio: Rate: regular rate and tachycardic Rhythm: abnormal rhythm irregularly irregular Heart sounds: S1 normal heart sound present, S2 normal heart sound present and no murmurs GI: Auscultation: normal bowel sounds Skin: General skin exam: normal color Neuro: General: patient oriented x3 Cranial nerves: Yes Equal, round and reactive pupils present Extrem: General: edema and pedal edema Psych: Appearance: grossly normal Mental Status: mental status grossly normal Results Labs and Meds 12/20/23 04:20 12/20/23 04:20 Lab results: Cardiac Enzymes 12/19/23 12/20/23 Range/Units 13:58 04:20 AST 16 15 (14-36) U/L Coagulation 12/19/23 Range/Units 13:58 PT 25.3 H (11.1-14.7) Seconds APTT 40.6 H (22.3-36.8) Seconds CBC 12/19/23 12/20/23 Range/Units 13:58 04:20 WBC 10.9 H 8.4 (4.5-10.0) K/mm3 RBC 4.69 4.45 (4.2-5.4) M/mm3 Hgb 13.1 12.1 (12.0-15.0) g/dL Hct 41.0 38.7 (37.0-47.0) % Plt Count 214 202 (150-375) k/mm3 Lymph # (Auto) 1.18 (0.9-3.2) K/mm3 [place] # (Auto) 1.5 H (0.1-0.6) K/mm3 Eos # (Auto) 0.0 (0-0.3) K/mm3 Baso # (Auto) 0.0 (0.0-0.1) K/mm3 Comprehensive Metabolic Panel 12/19/23 12/19/23 12/20/23 Range/Units 13:58 21:32 04:20 Sodium 140 139 (137-145) mmol/L Potassium 5.4 H 5.4 H 3.9 (3.4-5.0) mmol/L Chloride 107 104 (98-107) mmol/L Carbon Dioxide 21 L 24 (22-30) mmol/L BUN 26 H 28 H (7-17) mg/dL Creatinine 1.50 H 1.50 H (0.7-1.0) mg/dL Glucose 207 H 160 H (65-110) mg/dL Calcium 9.5 9.3 (8.4-10.2) mg/dL Direct Bilirubin 0.0 (0-0.3) mg/dL Indirect Bilirubin 1.7 H (0-1.1) mg/dL AST 16 15 (14-36) U/L ALT 10 8 (6-35) U/L Alkaline Phosphatase 210 H 163 H (38-126) U/L Total Protein 8.0 7.0 (6.3-8.2) g/dL Albumin 4.1 3.6 (3.5-5.1) g/dL Intake and Output 12/19/23 12/20/23 12/20/23 23:59 07:59 15:59 Intake Total 1000 120 Output Total 1200 Balance -200 120 Intake: Oral 1000 120 Output: Catheter Urine 1200 Urethral Catheter 1200 Patient Weight 12/20/23 23:59 Weight 84 kg
[2023-12-20 10:43] LABS: Glucose Point of Care 135 mg/dl (65-105)
--- NOTE | 2023-12-20 10:56 | P.PNIM_ITS ---
Progress Note: A&P Assessment and Plan (1) Atrial fibrillation with rapid ventricular response: Code(s): I48.91 - Unspecified atrial fibrillation Status: Acute (2) Heart failure with reduced ejection fraction: Code(s): I50.20 - Unspecified systolic (congestive) heart failure Status: Acute (3) Right wrist pain: Code(s): M25.531 - Pain in right wrist Status: Acute (4) Hyperkalemia: Code(s): E87.5 - Hyperkalemia Status: Acute (5) Chronic kidney disease, stage 3: Code(s): N18.30 - Chronic kidney disease, stage 3 unspecified Status: Acute (6) Chronic anticoagulation: Code(s): Z79.01 - shelter (current) use of anticoagulants Status: Acute (7) Insulin dependent type 2 diabetes mellitus: Code(s): E11.9 - Type 2 diabetes mellitus without complications; Z79.4 - continuous churn buttermaker (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 She also reports having a cough and congestion the past couple of days. Labs, imaging, EKG, and all reports were personally reviewed. Wrist x-ray showed possible right triquetrum fracture for which she has been placed in a splint. After receiving a nebulizer treatment she went into rapid atrial fibrillation and will be given a dose of p.o. metoprolol to see if that will help her rate. Chest x-ray shows mild pulmonary edema and central congestive changes, she is edematous, and proBNP is elevated. She will be diuresed with furosemide 40 mg IV with close monitoring of volume status, renal function, and electrolytes. Repeat potassium this evening to ensure it is improving. Her medication reconciliation states that she takes 40 mEq of potassium chloride today which will likely need to be readdressed. Kidney function is stable. Continue basal insulin. Initiate sliding scale insulin, Accu-Cheks, and hypoglycemic protocol. Her home medications will be reviewed and resumed as appropriate. Findings and treatment plan were discussed with the patient. Questions were solicited and answered to satisfaction. The patient's medical management will be taken over by the hospitalist team in a.m. #Small acute fracture the dorsal triquetrum Due to FOOSH On wrist Splint Ortho consulted If no displacement consider conservative therapy #Aif Fib Admitting team believes A.Fib due to respiratory treatment Received Lopressor 5 mg IV x 2 Possible CHF exacerbation trigger A.Fib On apixaban 2.5mg PO BID Metoprolol 100mg PO HS Cardiology following Lasix 40mg IV x BID Home med Lasix 40mg PO QD on hold # Hyperkalemia On home K 40 meq TID daily 12/14-12/18 : Potassium trends around 5.4-5.8 Consider decreasing K upon discharge or d/c #Cough Chest x-ray shows central congestive changes and minimal bibasilar pulmonary edema/atelectasis No evidence of pneumonia Mucinex 600 mg p.o. t.i.d. Subjective Date/time seen: 12/20/23 10:56 Interval history: This is a pleasant 88-year-old female with chronic atrial fibrillation on anticoagulation, heart failure with reduced ejection fraction, untreated obstructive sleep apnea, hypertension, insulin-dependent type 2 diabetes mellitus, and chronic kidney disease stage 3 who presented to the emergency department for evaluation of right wrist pain. The patient provides the following history. She has had pain on the dorsum of the right wrist. A few days ago she was trying to close the [place] when she lost her balance and fell for into the wall, hitting her left upper arm and right wrist. She did not have any pain at that time however last night began to have pain right wrist which has been pretty significant so she came in for evaluation. In the ED she was noted to be a bit short of breath with further questioning she reports that sometime last week she and her daughter had upper respiratory symptoms including a cough productive green phlegm, mild sore throat, and shortness of breath with exertion. Her symptoms have improved but she still has the cough and shortness of breath. Her appetite has still not rebounded and she occasionally has a bit nausea. On exam she has swelling of the lower legs which she states comes and goes. She denies fever, chills, sweats, sore throat, orthopnea, chest pain, pleuritic pain, palpitations, vomiting, abdominal pain, diarrhea, dysuria, and calf pain. In the ED: Vital signs on arrival include a temperature of 97.9?, blood pressure 149/107, pulse 83, respiratory rate 19, SpO2 95% on room air. Labs were significant for WBC count of 10.9, INR 2.2, potassium 5.4, BUN 26, creatinine 1.50, glucose 207, total bilirubin 2.4, proBNP 4300. She tested negative for influenza, RSV, and COVID. Right wrist x-ray showed a questionable small acute fracture of the dorsal triquetrum on lateral view. Chest x-ray showed central congestive changes and minimal bibasilar pulmonary edema/atelectasis. Right wrist was placed in a splint. She was administered a nebulizer treatment which threw her into rapid atrial fibrillation for which she has received 2 separate doses of Lopressor 5 mg IV without much improvement in her rate and she is being admitted in this setting Patient complains of cough. Denies any dysuria, hematuria, abdominal pain. Review of Systems Review of Systems: 12 systems were reviewed and are negativ e except for as per HPI. Exam Narrative: General: Mildly ill-appearing elderly female sitting up in bed in no acute distress. Weight: 83.2 kg. BMI: 32.5. HEENT: PERRL, EOMI. Sclera anicteric. Conjunctiva mildly injected. Tacky mucous membranes. Neck: Supple. No jugular venous distention. Respiratory: Mild conversational dyspnea but she appears in no acute distress. Fine crackles heard at the bases. Occasional rhonchi which clear with cough. Cardiovascular: Irregularly irregular rate and rhythm. Gastrointestinal: Abdomen is soft and nontender with positive bowel sounds. Bladder feels distended. Skin: Warm and dry. Lower extremity show evidence of chronic stasis dermatitis and some erythema without warmth. Extremities: No cyanosis or clubbing. 2+ lower extremity edema to the shins. No palpable knots or cords. Negative Luis Daniel sign bilaterally. Neurological: Alert. Cranial nerves 2-12 are grossly intact. No gross focal deficits to casual conversation. Psychiatric: Pleasant and cooperative with normal mood and affect. Judgment and insight intact. Objective Data Vital Signs Vital Signs: Vital Signs - 24 hr 12/19/23 11:33 12/19/23 11:41 12/19/23 12:30 Temperature 97.9 F Pulse Rate 83 83 Respiratory Rate 19 20 18 Blood Pressure 149/107 H Pulse Oximetry 95 97 Oxygen Delivery Room Air 12/19/23 12:30 12/19/23 12:46 12/19/23 12:47 Temperature Pulse Rate 84 121 H Respiratory Rate 18 20 Blood Pressure 115/73 Pulse Oximetry 96 100 Oxygen Delivery Room Air 12/19/23 13:43 12/19/23 13:55 12/19/23 11:28 Temperature Pulse Rate 146 H 125 H Respiratory Rate 27 H Blood Pressure 140/77 139/96 H Pulse Oximetry 99 98 Oxygen Delivery 12/19/23 11:34 12/19/23 11:45 12/19/23 11:46 Temperature Pulse Rate Respiratory Rate Blood Pressure 154/87 H Pulse Oximetry 97 96 97 Oxygen Delivery 12/19/23 12:00 12/19/23 12:03 12/19/23 12:16 Temperature Pulse Rate Respiratory Rate Blood Pressure 134/115 H 132/100 H Pulse Oximetry 97 100 Oxygen Delivery 12/19/23 12:17 12/19/23 12:31 12/19/23 12:47 Temperature Pulse Rate 124 H Respiratory Rate 23 H Blood Pressure 139/83 115/73 Pulse Oximetry 96 88 L Oxygen Delivery 12/19/23 12:48 12/19/23 13:00 12/19/23 13:01 Temperature Pulse Rate 129 H 134 H 131 H Respiratory Rate 18 23 H 19 Blood Pressure 156/98 H Pulse Oximetry 96 96 99 Oxygen Delivery 12/19/23 13:15 12/19/23 13:16 12/19/23 13:33 Temperature Pulse Rate 150 H 128 H 133 H Respiratory Rate 34 H 26 H 31 H Blood Pressure 135/88 Pulse Oximetry 97 97 95 Oxygen Delivery 12/19/23 13:45 12/19/23 14:03 12/19/23 14:18 Temperature Pulse Rate 113 H 118 H 119 H Respiratory Rate 24 H 27 H Blood Pressure Pulse Oximetry Oxygen Delivery 12/19/23 14:31 12/19/23 15:48 12/19/23 16:14 Temperature Pulse Rate 121 H 124 H 113 H Respiratory Rate 17 Blood Pressure 127/83 Pulse Oximetry 99 Oxygen Delivery 12/19/23 16:28 12/19/23 17:05 12/19/23 18:14 Temperature 98.8 F Pulse Rate 110 H 118 H 111 H Respiratory Rate 25 H 20 20 Blood Pressure 104/62 108/83 113/56 L Pulse Oximetry 98 95 98 Oxygen Delivery 12/19/23 18:00 12/19/23 20:03 12/19/23 23:48 Temperature 98.9 F 98.7 F Pulse Rate 117 H 114 H 101 H Respiratory Rate 20 20 Blood Pressure 121/50 L 111/79 Pulse Oximetry 97 99 Oxygen Delivery 12/19/23 20:00 12/20/23 00:00 12/19/23 20:00 Temperature Pulse Rate 122 H Respiratory Rate Blood Pressure Pulse Oximetry Oxygen Delivery Room Air Room Air 12/19/23 22:00 12/20/23 00:00 12/20/23 02:00 Temperature Pulse Rate 112 H 105 H 108 H Respiratory Rate Blood Pressure Pulse Oximetry Oxygen Delivery 12/20/23 04:00 12/20/23 04:00 12/20/23 04:54 Temperature 98.7 F Pulse Rate 86 93 Respiratory Rate 20 Blood Pressure 103/57 L Pulse Oximetry 99 Oxygen Delivery Room Air 12/20/23 06:00 12/20/23 08:27 12/20/23 09:09 Temperature Pulse Rate 92 Respiratory Rate Blood Pressure Pulse Oximetry 91 Oxygen Delivery Room Air Room Air 12/20/23 08:00 Temperature 98.7 F Pulse Rate 80 Respiratory Rate 22 H Blood Pressure 107/64 Pulse Oximetry 94 Oxygen Delivery Intake/Output Intake/Output: Intake & Output 12/17/23 12/18/23 12/19/23 12/20/23 23:59 23:59 23:59 23:59 Intake Total 1120 Output Total 1200 Balance -80 Meds/Results Medications: Active Medications Generic Name Dose Route Start Last Admin Trade Name Freq PRN Reason Stop Dose Admin Acetaminophen 650 mg 12/19/23 21:15 12/20/23 09:23 Acetaminophen 325 Mg Tablet PO 650 mg Q6H PRN Administration Mild Pain (1-3) or Fever Apixaban 2.5 mg 12/19/23 21:15 12/20/23 09:10 Apixaban 2.5 Mg Tablet PO 2.5 mg Q12HR LIO Administration Cholestyramine Resin 4 gm 12/20/23 21:00 Cholestyramine Light 4 Gm Powd.Pack PO HS LIO Dextrose 12.5 gm 12/19/23 21:15 Dextrose 50% 25 Gm/50 Ml Syringe IV PUSH PRN PRN Hypoglycemia Protocol Furosemide 40 mg 12/20/23 09:00 12/20/23 09:10 Furosemide Inj 40 Mg/4 Ml Vial IV PUSH 40 mg BID LIO Administration Glucagon 1 mg 12/19/23 21:15 Glucagon For Inj 1 Mg Vial IM PRN PRN Hypoglycemia Protocol Glucose 15 gm 12/19/23 21:15 Glucose Oral Gel 15 Gm Of Glucse In 37.5 Gm Tube PO PRN PRN Hypoglycemia Protocol Dextrose 1,000 mls @ 100 mls/hr 12/19/23 21:15 Dextrose 5% 1,000 Ml IVPB PRN PRN Hypoglycemia Protocol Insulin Aspart 3 - 6 units 12/20/23 08:00 12/20/23 09:07 Insulin Aspart (*Bkc) 100 Units/Ml SUB-Q Not Given TIDWM [facility] Protocol Insulin Aspart 1 - 3 units 12/20/23 21:00 Insulin Aspart (*Bkc) 100 Units/Ml SUB-Q HS [facility] Protocol Loratadine 10 mg 12/20/23 09:00 12/20/23 09:09 Loratadine 10 Mg Tablet PO 10 mg DAILY [facility] Administration Magnesium Oxide 400 mg 12/20/23 09:00 12/20/23 09:09 Magnesium Oxide 400 Mg Tablet PO 400 mg DAILY LIO Administration Metoprolol Succinate 100 mg 12/20/23 21:00 Metoprolol Succinate Ext Rel 100 Mg Tabcr PO HS [facility] Miscellaneous Information 1 each 12/19/23 00:01 Nonformulary Drug (Insulin Glargine U-300 Conc [Toujeo Solostar U-300 Insulin] 300 Unit/Ml XX 01/18/24 00:00 CLARIFY [facility] Multivitamins/Minerals 1 tablet 12/20/23 09:00 12/20/23 09:09 Opti-Gen Tab PO 1 tablet BID [facility] Administration Non-Formulary Medication 10 unit 12/20/23 09:00 Insulin Glargine U-300 Conc [Toujeo Solostar U-300 Insulin] SUB-Q 01/19/24 08:59 DAILY [facility] Pantoprazole Sodium 40 mg 12/20/23 09:00 12/20/23 09:10 Pantoprazole 40 Mg Tablet PO 40 mg QAM [facility] Administration Radiology Results: ITS Impressions Chest X-Ray 12/19/23 12:43 Impression: Central congestive change and minimal bibasilar pulmonary edema/atelectasis. Wrist X-Ray 12/19/23 12:43 Impression: Questionable small acute fracture the dorsal triquetrum on lateral view. Mild degenerative change at the first CMC joint. Hand X-Ray 12/19/23 12:44 Impression: Mild degenerative change, as above. Labs Labs: Laboratory Results - last 24 hr 12/19/23 12/19/23 12/19/23 12:01 13:58 17:46 WBC 10.9 H RBC 4.69 Hgb 13.1 Hct 41.0 MCV 87.4 MCH 27.9 MCHC 32.0 RDW 17.8 H Plt Count 214 MPV 10.8 H Immature Gran % (Auto) 0.5 Neut % (Auto) 74.2 H Lymph % (Auto) 10.8 L [place] % (Auto) 14.0 H Eos % (Auto) 0.2 Baso % (Auto) 0.3 Lymph # (Auto) 1.18 [place] # (Auto) 1.5 H Eos # (Auto) 0.0 Baso # (Auto) 0.0 Abs Immat Gran (auto) 0.06 H Absolute Neuts (auto) 8.1 H Absolute Nucleated RBC 0.000 Nucleated RBC % 0.0 PT 25.3 H INR 2.2 APTT 40.6 H Sodium 140 Potassium 5.4 H Chloride 107 Carbon Dioxide 21 L Anion Gap 12 BUN 26 H Creatinine 1.50 H Estim Creat Clear Calc 24 Estimated GFR 33 L Glucose 207 H POC Capillary Glucose 249 H Calcium 9.5 Magnesium Total Bilirubin 2.4 H Direct Bilirubin Indirect Bilirubin AST 16 ALT 10 Alkaline Phosphatase 210 H NT-Pro-B Natriuret Pep 4300 H Total Protein 8.0 Albumin 4.1 TSH (Reflex) Urine Color Urine Appearance Urine pH Ur Specific [place] Urine Protein Urine Glucose (UA) Urine Ketones Ur Blood (Man) Urine Nitrate Urine Bilirubin Urine Urobilinogen Leukocyte Esterase Rfl Urine RBC Urine WBC Ur Squamous Epith Cells Urine Bacteria Urine Casts Influenza A (RT-PCR) Negative Influenza B (RT-PCR) Negative RSV (RT-PCR) Negative SARS-CoV-2 RNA (RT-PCR) Negative 12/19/23 12/19/23 12/20/23 21:17 21:32 04:20 WBC 8.4 RBC 4.45 Hgb 12.1 Hct 38.7 MCV 87.0 MCH 27.2 MCHC 31.3 L RDW 17.8 H Plt Count 202 MPV 10.9 H Immature Gran % (Auto) Neut % (Auto) Lymph % (Auto) [place] % (Auto) Eos % (Auto) Baso % (Auto) Lymph # (Auto) [place] # (Auto) Eos # (Auto) Baso # (Auto) Abs Immat Gran (auto) Absolute Neuts (auto) Absolute Nucleated RBC Nucleated RBC % PT INR APTT Sodium 139 Potassium 5.4 H 3.9 Chloride 104 Carbon Dioxide 24 Anion Gap 11 BUN 28 H Creatinine 1.50 H Estim Creat Clear Calc 24 Estimated GFR 33 L Glucose 160 H POC Capillary Glucose Calcium 9.3 Magnesium 1.7 Total Bilirubin 2.3 H Direct Bilirubin 0.0 Indirect Bilirubin 1.7 H AST 15 ALT 8 Alkaline Phosphatase 163 H NT-Pro-B Natriuret Pep Total Protein 7.0 Albumin 3.6 TSH (Reflex) 1.360 Urine Color Yellow Urine Appearance Cloudy H Urine pH 5.0 Ur Specific [place] 1.012 Urine Protein Trace Urine Glucose (UA) Negative Urine Ketones Negative Ur Blood (Man) 1+ H Urine Nitrate Negative Urine Bilirubin Negative Urine Urobilinogen 0.2 Leukocyte Esterase Rfl 2+ H Urine RBC 0-2 Urine WBC 21-50 H Ur Squamous Epith Cells None seen Urine Bacteria 4+ H Urine Casts 3-5 Influenza A (RT-PCR) Influenza B (RT-PCR) RSV (RT-PCR) SARS-CoV-2 RNA (RT-PCR) 12/20/23 07:44 WBC RBC Hgb Hct MCV MCH MCHC RDW Plt Count MPV Immature Gran % (Auto) Neut % (Auto) Lymph % (Auto) [place] % (Auto) Eos % (Auto) Baso % (Auto) Lymph # (Auto) [place] # (Auto) Eos # (Auto) Baso # (Auto) Abs Immat Gran (auto) Absolute Neuts (auto) Absolute Nucleated RBC Nucleated RBC % PT INR APTT Sodium Potassium Chloride Carbon Dioxide Anion Gap BUN Creatinine Estim Creat Clear Calc Estimated GFR Glucose POC Capillary Glucose 135 H Calcium Magnesium Total Bilirubin Direct Bilirubin Indirect Bilirubin AST ALT Alkaline Phosphatase NT-Pro-B Natriuret Pep Total Protein Albumin TSH (Reflex) Urine Color Urine Appearance Urine pH Ur Specific [place] Urine Protein Urine Glucose (UA) Urine Ketones Ur Blood (Man) Urine Nitrate Urine Bilirubin Urine Urobilinogen Leukocyte Esterase Rfl Urine RBC Urine WBC Ur Squamous Epith Cells Urine Bacteria Urine Casts Influenza A (RT-PCR) Influenza B (RT-PCR) RSV (RT-PCR) SARS-CoV-2 RNA (RT-PCR) Hospitalist MIPS Advance Care Plan I have confirmed that the patient's Advanced Care Plan is present, code status is documented, or surrogate decision maker is listed in patient medical record.: Yes Medication Reconciliation I have utilized all available resources to obtain, update and review the patients current medications (includes all prescriptions, OTC, herbals, cannabis, and nutritional supplements).: Yes
--- NOTE | 2023-12-20 11:52 | PHAR ---
Pharmacy verified home med: * Use from home * Insulin Glargine U-300 Conc [Tou[place] Solostar U-300 Insulin] 300 unit/mL inject 10 units under the skin once daily
[2023-12-20 11:57] LABS: Glucose Point of Care 150 mg/dl (65-105)
[2023-12-20] MEDS: INSULIN GLARGINE 10 EACH SUB-Q (13:10)
--- NOTE | 2023-12-20 15:56 | PM.CNOR ---
Assessment and Plan Assessment and plan (1) Fracture of triquetrum: Qualifiers: Encounter type: initial encounter Fracture type: closed Fracture alignment: nondisplaced Laterality: right Qualified Code(s): S62.114A - Nondisplaced fracture of triquetrum [cuneiform] bone, right wrist, initial encounter for closed fracture Code(s): S62.113A - Displaced fracture of triquetrum [cuneiform] bone, unspecified wrist, initial encounter for closed fracture Status: Acute Assessment and Plan: Radiographs of the right wrist reveals a small acute fracture the dorsal triquetrum. The fracture type and injury as well as radiographs discussed with the patient and family. Operative and nonoperative treatment options reviewed. Recommended non operative treatment. Risk of nonunion, malunion or late displacement discussed. Stiffness, pain and possible dysfunction of the joint discussed. Fracture precautions and activity restrictions reviewed. The patient verbalizes understanding. Continue splint at this time. Will transition to Velcro splint prior to d/c. Ice/elevate. ROM of hand as tolerated. Monitor NV status. Plan Reviewed history, exam, radiographs and current labs with attending MD and covering surgeon, Dr. Shaikh, who agrees with current plan as indicated above. No further recommendations from Dr. Shaikh at this time. History of Present Illness HPI Consult date: 12/20/23 Chief complaint: Wrist Fracture/Exertional SOB/Afib with RVR Narrative: 88-year-old female with a history of AFib on anticoagulation, heart failure, CARLY, hypertension, diabetes and chronic kidney disease presented to the emergency room after a fall onto an outstretched hand of the right side with subsequent wrist pain. Per the patient, she lost her balance and hit her hand onto a table. she presented to the emergency room for further evaluation. Radiographs of the right wrist reveals a small acute fracture the dorsal triquetrum on lateral view with mild degenerative change at the first CMC joint and degenerative changes throughout the hand. She was splinted in the ED and admitted for further evaluation of her cough, shortness of breath and phlegm. She is very concerned about her cough on exam today. Orthopedic consult requested by the ED. Review of Systems Review of Systems: All systems reviewed & are unremarkable except as noted in HPI and below PMFSH Past Medical History Medical History (Updated 12/20/23 @ 16:09 by DEBORAH Metz) Anxiety Chronic anticoagulation Chronic atrial fibrillation Chronic kidney disease, stage 3 Colon cancer Deep venous thrombosis Fracture of triquetrum Gastroesophageal reflux disease Heart failure with reduced ejection fraction echocardiogram in 11/2021 showed moderate concentric LVH, moderate global left ventricular systolic dysfunction with an estimated ejection fraction of 30 to 35%, severe biatrial enlargement, and mild pulmonary hypertension Hypertension Insulin dependent type 2 diabetes mellitus Iron deficiency anemia Macular degeneration Peripheral neuropathy Primary stress urinary incontinence Severe obstructive sleep apnea intolerant to CPAP Transient ischemic attack Venous stasis ulcers Surgical History Surgical History History of bilateral cataract extraction History of cholecystectomy History of hysterectomy History of right hemicolectomy (07/2019) right colon cancer Family History Family History Mother Family history of respiratory disorder, Onset Age: 21 Other Family history of cardiovascular disease Social History Social History Social History: 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 Code status: Do not resuscitate. Smoking status: Never smoker Second hand tobacco smoke exposure: No Alcohol intake: never Substance use: never Substance use type: does not use Do You Feel Safe in your Home?: Yes Lack of Transportation: No Lack of Food: Never True Current Housing: I Have Housing Concerned About Future Housing: No Difficulty Paying Gas/Electric Bills: No Difficulty Paying for Meds: No Currently Unemployed: No Education: High School Diploma/GED Difficulty w/ Childcare or Family Care: No Additional living arrangements comments: . Lives in independent living at [place] [facility]. Ambulates with a walker. Spiritual care concerns: No Agree to blood products: Yes Meds Home Medications and Allergies Home Medications Medication Instructions Recorded Confirmed Type loratadine 10 mg tablet 10 mg PO DAILY 01/11/19 12/19/23 History furosemide 40 mg tablet 40 mg PO BID #60 tabs 02/26/19 12/19/23 Rx potassium chloride 10 mEq 40 meq PO TID #30 tabs 02/26/19 12/19/23 Rx tablet,extended release (K-Tab) magnesium oxide 400 mg PO DAILY 03/14/19 12/19/23 History vit C 250 mg-vit E 90 mg-zinc 40 1 tablet PO BID 03/18/19 12/19/23 History mg-copper 1 [id number] capsule (PreserVision AREDS-2) apixaban 2.5 mg tablet (Eliquis) 2.5 mg PO BID 08/28/19 12/19/23 History insulin glargine U-300 conc 300 10 unit (0.0333 mL) subcut DAILY 03/25/23 12/19/23 Rx unit/mL (1.5 mL) subcutaneous pen #6 mL (Toujeo SoloStar U-300 Insulin) insulin lispro 100 unit/mL See Rx Instructions .Route 08/04/23 12/19/23 Rx subcutaneous pen .COMPLEX #15 mL pen needle, diabetic 31 gauge x #400 ea 11/04/23 12/19/23 Rx 5/16 pantoprazole 40 mg tablet,delayed 40 mg PO QAM #90 tabs 11/29/23 12/19/23 Rx release cholestyramine-aspartame 4 gram 4 g PO HS 12/19/23 12/19/23 History oral powder for susp in a packet (Cholestyramine Light) flash glucose scanning reader 12/19/23 12/19/23 History (FreeStyle Aashish 14 Day [place]) flash glucose sensor (FreeStyle 12/19/23 12/19/23 History Aashish 14 Day Sensor kit) metoprolol succinate 100 mg 100 mg PO HS 12/19/23 12/19/23 History tablet,extended release 24 hr Allergies Allergy/AdvReac Type Severity Reaction Status Date / Time adhesive tape Allergy Unknown Rash Verified 12/19/23 11:14 cetirizine Allergy Unknown Swelling Verified 12/19/23 11:14 of Lip/Tongue/Throat diazepam Allergy Unknown Cough Verified 12/19/23 11:14 gabapentin Allergy Unknown Confusion Verified 12/19/23 11:14 levetiracetam Allergy Unknown Confusion Verified 12/19/23 11:14 levofloxacin Allergy Unknown Confusion Verified 12/19/23 11:14 pregabalin Allergy Unknown Confusion Verified 12/19/23 11:14 zolpidem Allergy Unknown Hallucinati Verified 12/19/23 11:14 ng sleep aids - all AdvReac Severe Hallucinati Uncoded 12/19/23 11:14 ng Vital Signs Vital Signs - 24 hr 12/19/23 16:14 12/19/23 16:28 12/19/23 17:05 Temperature Pulse Rate 113 H 110 H 118 H Respiratory Rate 25 H 20 Blood Pressure 104/62 108/83 Pulse Oximetry 98 95 Oxygen Delivery 12/19/23 18:14 12/19/23 18:00 12/19/23 20:03 Temperature 37.1 C 37.2 C Pulse Rate 111 H 117 H 114 H Respiratory Rate 20 20 Blood Pressure 113/56 L 121/50 L Pulse Oximetry 98 97 Oxygen Delivery 12/19/23 23:48 12/19/23 20:00 12/20/23 00:00 Temperature 37.1 C Pulse Rate 101 H Respiratory Rate 20 Blood Pressure 111/79 Pulse Oximetry 99 Oxygen Delivery Room Air Room Air 12/19/23 20:00 12/19/23 22:00 12/20/23 00:00 Temperature Pulse Rate 122 H 112 H 105 H Respiratory Rate Blood Pressure Pulse Oximetry Oxygen Delivery 12/20/23 02:00 12/20/23 04:00 12/20/23 04:00 Temperature Pulse Rate 108 H 86 Respiratory Rate Blood Pressure Pulse Oximetry Oxygen Delivery Room Air 12/20/23 04:54 12/20/23 06:00 12/20/23 08:27 Temperature 37.1 C Pulse Rate 93 92 Respiratory Rate 20 Blood Pressure 103/57 L Pulse Oximetry 99 91 Oxygen Delivery Room Air 12/20/23 09:09 12/20/23 08:00 12/20/23 10:25 Temperature 37.1 C Pulse Rate 80 Respiratory Rate 22 H Blood Pressure 107/64 Pulse Oximetry 94 Oxygen Delivery Room Air Room Air 12/20/23 08:00 12/20/23 10:00 12/20/23 12:00 Temperature Pulse Rate 107 H 109 H 107 H Respiratory Rate Blood Pressure Pulse Oximetry Oxygen Delivery 12/20/23 12:00 12/20/23 14:00 Temperature 36.6 C Pulse Rate 95 108 H Respiratory Rate 20 Blood Pressure 127/57 L Pulse Oximetry 97 Oxygen Delivery Exam Const: General: comfortable and no acute distress HENMT: Mouth: Yes moist mucous membranes Eyes: General: appearance normal, both eyes and all related structures Neck: Neck: supple and no JVD Resp: Effort & Inspection: normal respiratory effort Cardio: Rate: regular rate Rhythm: regular rhythm GI: Inspection: non-distended GI Palp: Yes Soft to palpation and No Tenderness to palpation present (GI) Neuro: General: gait normal Cognition (Neuro): normal cognition Speech: normal speech Extrem: Right upper extremity: elbow/forearm normal to inspection and normal ROM; no tenderness and no swelling, wrist (splint c/d/i ) normal to inspection, tenderness of the volar wrist and swelling and Extremity exam: right hand normal to inspection, normal capillary refill, neuromotor exam normal, neurosensory exam normal, neurosensory exam abnormal and vascular exam radial pulse present 2+; no tenderness, no lacerations and no ecchymosis Psych: Mental Status: mental status grossly normal Affect: normal affect Results Labs 12/20/23 04:20 12/20/23 04:20 Labs: Abnormal lab results 12/19/23 12/19/23 12/19/23 Range/Units 17:46 21:17 21:32 MCHC (32-36) g/dl RDW (11.5-14.5) % MPV (7.4-10.4) fl Potassium 5.4 H (3.4-5.0) mmol/L BUN (7-17) mg/dL Creatinine (0.7-1.0) mg/dL Estimated GFR (59 - ) Glucose (65-110) mg/dL POC Capillary Glucose 249 H (65-105) mg/dl Total Bilirubin (0.2-1.3) mg/dL Indirect Bilirubin 1.7 H (0-1.1) mg/dL Alkaline Phosphatase (38-126) U/L Urine Appearance Cloudy H (Clear) Ur Blood (Man) 1+ H (Negative) Leukocyte Esterase Rfl 2+ H (Negative) ANTOINETTE/UL Urine WBC 21-50 H (0-3) /hpf Urine Bacteria 4+ H /hpf 12/20/23 12/20/23 12/20/23 Range/Units 04:20 07:44 11:51 MCHC 31.3 L (32-36) g/dl RDW 17.8 H (11.5-14.5) % MPV 10.9 H (7.4-10.4) fl Potassium (3.4-5.0) mmol/L BUN 28 H (7-17) mg/dL Creatinine 1.50 H (0.7-1.0) mg/dL Estimated GFR 33 L (59 - ) Glucose 160 H (65-110) mg/dL POC Capillary Glucose 135 H 150 H (65-105) mg/dl Total Bilirubin 2.3 H (0.2-1.3) mg/dL Indirect Bilirubin (0-1.1) mg/dL Alkaline Phosphatase 163 H (38-126) U/L Urine Appearance (Clear) Ur Blood (Man) (Negative) Leukocyte Esterase Rfl (Negative) ANTOINETTE/UL Urine WBC (0-3) /hpf Urine Bacteria /hpf H & H 12/19/23 12/20/23 Range/Units 13:58 04:20 Hgb 13.1 12.1 (12.0-15.0) g/dL Hct 41.0 38.7 (37.0-47.0) % Coagulation 12/19/23 Range/Units 13:58 INR 2.2 All other labs normal.
[2023-12-20 16:08] LABS: Glucose Point of Care 249 mg/dl (65-105)
[2023-12-20] MEDS: INSULIN ASPART (*BKC) 100 UNITS/ML SUB-Q (16:38)
[2023-12-20 20:33] LABS: Glucose Point of Care 206 mg/dl (65-105)
[2023-12-20] MEDS: METOPROLOL SUCCINATE EXT REL 100 MG TABCR PO (20:51)
[2023-12-20] MEDS: guaiFENesin 12 HR 600 MG TABCR PO (20:51)
[2023-12-20] MEDS: CHOLESTYRAMINE LIGHT 4 GM POWD.PACK PO (20:53)
[2023-12-21] VITALS (20 sets, daily range): BP systolic 94–150; BP diastolic 52–94; PULSE 83–137; RESP 16–24; TEMP 36.5–37.2; O2SAT 92–98
[2023-12-21 05:04] LABS: Hematocrit 38.9 % (37.0-47.0); Hemoglobin 12.4 g/dL (12.0-15.0); Mean Corpuscular HGB Conc 31.9 g/dl (32-36); Mean Corpuscular Hemoglobin 27.5 pg (26-34); Mean Corpuscular Volume 86.3 fl (80-100); Mean Platelet Volume 10.6 fl (7.4-10.4); Platelet Count Result 200 k/mm3 (150-375); Red Blood Count 4.51 M/mm3 (4.2-5.4); Red Cell Distribution Width 17.4 % (11.5-14.5); White Blood Count 8.2 K/mm3 (4.5-10.0)
[2023-12-21 05:14] LABS: Alanine Aminotransferase 8 U/L (6-35); Albumin Level 3.4 g/dL (3.5-5.1); Alkaline Phosphatase 167 U/L (38-126); Anion Gap 8 mmol/L (4-12); Aspartate Amino Transferase 15 U/L (14-36); Bilirubin,Total 1.9 mg/dL (0.2-1.3); Blood Urea Nitrogen 27 mg/dL (7-17); Calcium 8.4 mg/dL (8.4-10.2); Carbon Dioxide 29 mmol/L (22-30); Chloride 100 mmol/L (98-107); Estimated CRCL calculation 24 ml/min; Estimated Glomerular Filt Rate 33; Glucose 125 mg/dL (65-110); Sodium 137 mmol/L (137-145)
[2023-12-21 07:59] LABS: Glucose Point of Care 125 mg/dl (65-105)
[2023-12-21] MEDS: ACETAMINOPHEN 325 MG TABLET 650 MG PO (09:14)
[2023-12-21] MEDS: FUROSEMIDE INJ 40 MG/4 ML VIAL IV PUSH ×2 (09:15→16:48)
[2023-12-21] MEDS: APIXABAN 2.5 MG TABLET PO ×2 (09:15→20:25)
[2023-12-21] MEDS: LORATADINE 10 MG TABLET PO (09:15)
[2023-12-21] MEDS: guaiFENesin 12 HR 600 MG TABCR PO ×2 (09:15→20:25)
[2023-12-21] MEDS: PANTOPRAZOLE 40 MG TABLET PO (09:16)
[2023-12-21] MEDS: OPTI-GEN TAB 1 TABLET PO ×2 (09:16→16:49)
[2023-12-21] MEDS: POTASSIUM CHLORIDE 10 MEQ ER TABLET 40 MEQ PO (09:16)
[2023-12-21] MEDS: MAGNESIUM OXIDE 400 MG TABLET PO (09:16)
[2023-12-21] MEDS: POTASSIUM CHLORIDE INJ 40 MEQ in SODIUM CHLORIDE 0.9% IV 500 ML 130 MEQ IVPB (09:17)
[2023-12-21] MEDS: INSULIN GLARGINE 10 EACH SUB-Q (09:17)
[2023-12-21 09:39] LABS: Magnesium 1.5 mg/dL (1.6-2.3)
--- NOTE | 2023-12-21 09:49 | PCSTNOTE ---
Please refer to the Bedside Swallow Evaluation in the EMR. Please note, silent aspiration cannot be ruled out at bedside.
--- NOTE | 2023-12-21 10:12 | P.PNCA_ITS ---
Progress Note: A&P Assessment and Plan (1) Heart failure with reduced ejection fraction: Code(s): I50.20 - Unspecified systolic (congestive) heart failure Status: Acute Assessment and Plan: Acute on chronic systolic heart failure. * Agree with IV furosemide for now * Strict I&O * Daily weights * JOHN hose * Daily BMP while diuresing (2) Chronic atrial fibrillation: Code(s): I48.20 - Chronic atrial fibrillation, unspecified Status: Acute Assessment and Plan: Now with RVR. She is asymptomatic in this regard, but this morning her rates in the 120's - 130's. * Continue with Metoprolol succinate but will increase to 150mg daily (scheduled at night, which is unusual but o.k.) and will give an additional dose of metoprolol tartrate 25mg now. * p.r.n. Lopressor IV for sustained HR >120 * Continue telemetry (3) Hypertension: Code(s): I10 - Essential (primary) hypertension Status: Acute Assessment and Plan: At goal (4) Chronic anticoagulation: Code(s): Z79.01 - penitentiary (current) use of anticoagulants Status: Acute Assessment and Plan: Continue apixaban 2.5mg b.i.d - dose adjusted for age, renal function (5) Chronic kidney disease, stage 3: Code(s): N18.30 - Chronic kidney disease, stage 3 unspecified Status: Acute Assessment and Plan: Stable. Subjective Date/time seen: 12/21/23 10:12 Interval history: Cardiology follow up for Afib, CHF Date of service 12/21/2023: She is feeling worse today complaining of pain in both her wrists. She still has edema on her legs but it is improving. No shortness of breath or palpitations. Complains also of a productive cough. Review of Systems Review of Systems: All systems reviewed & are unremarkable except as noted in HPI and below Exam Const: General: comfortable, no acute distress, alert and awake Orientation/consciousness: patient oriented x3 HENMT: Head: normal to inspection Eyes: General: appearance normal, both eyes and all related structures Pupils: Equal, round and reactive pupils present Neck: Neck: normal visual inspection, supple and no JVD Carotids: normal carotid upstroke Resp: Effort & Inspection: normal respiratory effort Auscultation: clear to auscultation bilaterally, crackles and diminished lung sounds Cardio: Rate: regular rate and tachycardic Rhythm: abnormal rhythm irregularly irregular Heart sounds: S1 normal heart sound present, S2 normal heart sound present and no murmurs GI: Auscultation: normal bowel sounds Skin: General skin exam: normal color Neuro: General: patient oriented x3 Cranial nerves: Yes Equal, round and reactive pupils present Extrem: General: edema and pedal edema Right upper extremity: wrist abnormal to inspection Psych: Appearance: grossly normal Mental Status: mental status grossly normal Objective Data Vital Signs Vital Signs: Vital Signs - 24 hr 12/20/23 10:25 12/20/23 12:00 12/20/23 12:00 Temperature 36.6 C Pulse Rate 107 H 95 Respiratory Rate 20 Blood Pressure 127/57 L Pulse Oximetry 97 Oxygen Delivery Room Air 12/20/23 14:00 12/20/23 16:00 12/20/23 16:00 Temperature 36.4 C L Pulse Rate 108 H 110 H 117 H Respiratory Rate 22 H Blood Pressure 120/68 Pulse Oximetry 96 Oxygen Delivery 12/20/23 20:12 12/20/23 20:51 12/21/23 00:25 Temperature 36.6 C 37.0 C Pulse Rate 130 H 107 H 115 H Respiratory Rate 22 H 22 H Blood Pressure 144/50 H 140/56 L Pulse Oximetry 91 92 Oxygen Delivery 12/20/23 20:00 12/21/23 00:00 12/21/23 02:00 Temperature Pulse Rate 123 H 117 H 99 Respiratory Rate Blood Pressure Pulse Oximetry Oxygen Delivery 12/20/23 22:00 12/21/23 05:19 12/21/23 04:00 Temperature 37.2 C Pulse Rate 104 H 83 108 H Respiratory Rate 22 H Blood Pressure 112/52 L Pulse Oximetry 95 Oxygen Delivery 12/21/23 06:00 12/21/23 08:00 Temperature 36.7 C Pulse Rate 111 H 105 H Respiratory Rate 24 H Blood Pressure 120/79 Pulse Oximetry 97 Oxygen Delivery Intake/Output Intake/Output: Intake & Output 12/18/23 12/19/23 12/20/23 12/21/23 23:59 23:59 23:59 23:59 Intake Total 2080 670 Output Total 2200 1200 Balance -120 -530 Meds/Results Medications: Active Medications Generic Name Dose Route Start Last Admin Trade Name Karen PRN Reason Stop Dose Admin Acetaminophen 650 mg 12/19/23 21:15 12/21/23 09:14 Acetaminophen 325 Mg Tablet PO 650 mg Q6H PRN Administration Mild Pain (1-3) or Fever Apixaban 2.5 mg 12/19/23 21:15 12/21/23 09:15 Apixaban 2.5 Mg Tablet PO 2.5 mg Q12HR LIO Administration Cholestyramine Resin 4 gm 12/20/23 21:00 12/20/23 20:53 Cholestyramine Light 4 Gm Powd.Pack PO 4 gm HS LIO Administration Dextrose 12.5 gm 12/19/23 21:15 Dextrose 50% 25 Gm/50 Ml Syringe IV PUSH PRN PRN Hypoglycemia Protocol Furosemide 40 mg 12/21/23 09:00 12/21/23 09:15 Furosemide Inj 40 Mg/4 Ml Vial IV PUSH 40 mg BID LIO Administration Glucagon 1 mg 12/19/23 21:15 Glucagon For Inj 1 Mg Vial IM PRN PRN Hypoglycemia Protocol Glucose 15 gm 12/19/23 21:15 Glucose Oral Gel 15 Gm Of Glucse In 37.5 Gm Tube PO PRN PRN Hypoglycemia Protocol Guaifenesin 600 mg 12/20/23 21:00 12/21/23 09:15 Guaifenesin 12 Hr 600 Mg Tabcr PO 600 mg Q12HR LIO Administration Dextrose 1,000 mls @ 100 mls/hr 12/19/23 21:15 Dextrose 5% 1,000 Ml IVPB PRN PRN Hypoglycemia Protocol Potassium Chloride 40 meq/ 520 mls @ 130 mls/hr 12/21/23 08:32 12/21/23 09:17 Sodium Chloride IVPB 12/21/23 12:31 130 mls/hr ONCE ONE Administration Magnesium Sulfate 2 gm in 50 mls @ 25 mls/hr 12/21/23 09:59 Magnesium Sulf 2 Gm/Water 50ml IVPB 12/21/23 11:58 ONCE ONE Insulin Aspart 3 - 6 units 12/20/23 08:00 12/21/23 09:16 Insulin Aspart (*Bkc) 100 Units/Ml SUB-Q Not Given TIDWM LIO Protocol Insulin Aspart 1 - 3 units 12/20/23 21:00 12/20/23 20:52 Insulin Aspart (*Bkc) 100 Units/Ml SUB-Q Not Given HS LIO Protocol Loratadine 10 mg 12/20/23 09:00 12/21/23 09:15 Loratadine 10 Mg Tablet PO 10 mg DAILY LIO Administration Magnesium Oxide 400 mg 12/20/23 09:00 12/21/23 09:16 Magnesium Oxide 400 Mg Tablet PO 400 mg DAILY LIO Administration Metoprolol Succinate 150 mg 12/21/23 21:00 Metoprolol Succinate Ext Rel 50 Mg Tabcr PO HS [facility] Metoprolol Tartrate 5 mg 12/20/23 13:08 Metoprolol Tartrate Inj 5 Mg/5 Ml Vial IV PUSH Q2H PRN Tachycardia Multivitamins/Minerals 1 tablet 12/20/23 09:00 12/21/23 09:16 Opti-Gen Tab PO 1 tablet BID LIO Administration * Home Med * Insulin 10 unit 12/20/23 13:00 12/21/23 09:17 Glargine U-300 Conc SUB-Q 01/19/24 12:59 10 unit [Toujeo Solostar U- DAILY LIO Administration 300 Insulin] 300 Unit/Ml Pantoprazole Sodium 40 mg 12/20/23 09:00 12/21/23 09:16 Pantoprazole 40 Mg Tablet PO 40 mg QAM LIO Administration Radiology Results: ITS Impressions Chest X-Ray 12/19/23 12:43 Impression: Central congestive change and minimal bibasilar pulmonary edema/atelectasis. Wrist X-Ray 12/19/23 12:43 Impression: Questionable small acute fracture the dorsal triquetrum on lateral view. Mild degenerative change at the first CMC joint. Hand X-Ray 12/19/23 12:44 Impression: Mild degenerative change, as above. Labs Labs: Laboratory Results - last 24 hr 12/20/23 12/20/23 12/20/23 07:44 11:51 16:04 WBC RBC Hgb Hct MCV MCH MCHC RDW Plt Count MPV Sodium Potassium Chloride Carbon Dioxide Anion Gap BUN Creatinine Estim Creat Clear Calc Estimated GFR Glucose POC Capillary Glucose 135 H 150 H 249 H Calcium Magnesium Total Bilirubin AST ALT Alkaline Phosphatase Total Protein Albumin 12/20/23 12/21/23 12/21/23 20:29 04:38 04:41 WBC 8.2 RBC 4.51 Hgb 12.4 Hct 38.9 MCV 86.3 MCH 27.5 MCHC 31.9 L RDW 17.4 H Plt Count 200 MPV 10.6 H Sodium 137 Potassium 3.0 L Chloride 100 Carbon Dioxide 29 Anion Gap 8 BUN 27 H Creatinine 1.50 H Estim Creat Clear Calc 24 Estimated GFR 33 L Glucose 125 H POC Capillary Glucose 206 H Calcium 8.4 Magnesium 1.5 L Total Bilirubin 1.9 H AST 15 ALT 8 Alkaline Phosphatase 167 H Total Protein 7.0 Albumin 3.4 L 12/21/23 07:21 WBC RBC Hgb Hct MCV MCH MCHC RDW Plt Count MPV Sodium Potassium Chloride Carbon Dioxide Anion Gap BUN Creatinine Estim Creat Clear Calc Estimated GFR Glucose POC Capillary Glucose 125 H Calcium Magnesium Total Bilirubin AST ALT Alkaline Phosphatase Total Protein Albumin Quality VTE Prophylaxis VTE prophylaxis: pharmacologic ordered (on apixaban)
[2023-12-21] MEDS: MAGNESIUM SULF 2 GM/WATER 50ML 2 GM/50 ML BAG IVPB (10:16)
[2023-12-21] MEDS: METOPROLOL TARTRATE 25 MG TABLET PO (10:17)
[2023-12-21 11:27] LABS: Glucose Point of Care 173 mg/dl (65-105)
--- NOTE | 2023-12-21 14:43 | P.PNIM_ITS ---
Progress Note: A&P Assessment and Plan (1) Atrial fibrillation with rapid ventricular response: Code(s): I48.91 - Unspecified atrial fibrillation Status: Acute (2) Heart failure with reduced ejection fraction: Code(s): I50.20 - Unspecified systolic (congestive) heart failure Status: Acute (3) Right wrist pain: Code(s): M25.531 - Pain in right wrist Status: Acute (4) Hyperkalemia: Code(s): E87.5 - Hyperkalemia Status: Acute (5) Chronic kidney disease, stage 3: Code(s): N18.30 - Chronic kidney disease, stage 3 unspecified Status: Acute (6) Chronic anticoagulation: Code(s): Z79.01 - correction (current) use of anticoagulants Status: Acute (7) Insulin dependent type 2 diabetes mellitus: Code(s): E11.9 - Type 2 diabetes mellitus without complications; 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 She also reports having a cough and congestion the past couple of days. Labs, imaging, EKG, and all reports were personally reviewed. Wrist x-ray showed possible right triquetrum fracture for which she has been placed in a splint. After receiving a nebulizer treatment she went into rapid atrial fibrillation and will be given a dose of p.o. metoprolol to see if that will help her rate. Chest x-ray shows mild pulmonary edema and central congestive changes, she is edematous, and proBNP is elevated. She will be diuresed with furosemide 40 mg IV with close monitoring of volume status, renal function, and electrolytes. Repeat potassium this evening to ensure it is improving. Her medication reconciliation states that she takes 40 mEq of potassium chloride today which will likely need to be readdressed. Kidney function is stable. Continue basal insulin. Initiate sliding scale insulin, Accu-Cheks, and hypoglycemic protocol. Her home medications will be reviewed and resumed as appropriate. Findings and treatment plan were discussed with the patient. Questions were solicited and answered to satisfaction. The patient's medical management will be taken over by the hospitalist team in a.m. #Small acute fracture the dorsal triquetrum Due to FOOSH On wrist Splint Conservative therapy per ortho #Aif Fib with RVR Rate in 120 - 130s Cardiology increased Metorprolol to 150mg daily, with PRN lopressor for HR above 120 On apixaban 2.5mg PO BID Cardiology following # Hyperkalemia On home K 40 meq TID daily 12/14-12/18 : Potassium trends around 5.4-5.8 Consider decreasing K upon discharge or d/c CHF Exacerbation Chest x-ray shows central congestive changes and minimal bibasilar pulmonary edema/atelectasis No evidence of pneumonia Lasix 40mg IV x BID Home med Lasix 40mg PO QD on hold Suspected aspiration Patient was noted to be coughing during bedside swallow eval For MBS today ST following Continue SSI with accucheks and titrate other home meds DVT prophylaxis on Eliquis Subjective Date/time seen: 12/21/23 14:43 Interval history: patient comfortable at bedside and for swallow eval today with MBS Review of Systems Review of Systems: 12 systems were reviewed and are negativ e except for as per HPI. Exam Narrative: General: Mildly ill-appearing elderly female sitting up in bed in no acute distress. Weight: 83.2 kg. BMI: 32.5. HEENT: PERRL, EOMI. Sclera anicteric. Conjunctiva mildly injected. Tacky mucous membranes. Neck: Supple. No jugular venous distention. Respiratory: Mild conversational dyspnea but she appears in no acute distress. Fine crackles heard at the bases. Occasional rhonchi which clear with cough. Cardiovascular: Irregularly irregular rate and rhythm. Gastrointestinal: Abdomen is soft and nontender with positive bowel sounds. Bladder feels distended. Skin: Warm and dry. Lower extremity show evidence of chronic stasis dermatitis and some erythema without warmth. Extremities: No cyanosis or clubbing. 2+ lower extremity edema to the shins. No palpable knots or cords. Negative Luis Daniel sign bilaterally. Neurological: Alert. Cranial nerves 2-12 are grossly intact. No gross focal deficits to casual conversation. Psychiatric: Pleasant and cooperative with normal mood and affect. Judgment and insight intact. Objective Data Vital Signs Vital Signs: Vital Signs - 24 hr 12/20/23 16:00 12/20/23 16:00 12/20/23 20:12 Temperature 97.5 F L 97.9 F Pulse Rate 110 H 117 H 130 H Respiratory Rate 22 H 22 H Blood Pressure 120/68 144/50 H Pulse Oximetry 96 91 12/20/23 20:51 12/21/23 00:25 12/20/23 20:00 Temperature 98.6 F Pulse Rate 107 H 115 H 123 H Respiratory Rate 22 H Blood Pressure 140/56 L Pulse Oximetry 92 12/21/23 00:00 12/21/23 02:00 12/20/23 22:00 Temperature Pulse Rate 117 H 99 104 H Respiratory Rate Blood Pressure Pulse Oximetry 12/21/23 05:19 12/21/23 04:00 12/21/23 06:00 Temperature 98.9 F Pulse Rate 83 108 H 111 H Respiratory Rate 22 H Blood Pressure 112/52 L Pulse Oximetry 95 12/21/23 08:00 12/21/23 10:17 12/21/23 11:52 Temperature 98.1 F 97.7 F Pulse Rate 105 H 114 H 126 H Respiratory Rate 24 H 20 Blood Pressure 120/79 123/91 H Pulse Oximetry 97 98 Intake/Output Intake/Output: Intake & Output 12/18/23 12/19/23 12/20/23 12/21/23 23:59 23:59 23:59 23:59 Intake Total 2080 670 Output Total 2200 1200 Balance -120 -530 Meds/Results Medications: Active Medications Generic Name Dose Route Start Last Admin Trade Name Freq PRN Reason Stop Dose Admin Acetaminophen 650 mg 12/19/23 21:15 12/21/23 09:14 Acetaminophen 325 Mg Tablet PO 650 mg Q6H PRN Administration Mild Pain (1-3) or Fever Apixaban 2.5 mg 12/19/23 21:15 12/21/23 09:15 Apixaban 2.5 Mg Tablet PO 2.5 mg Q12HR LIO Administration Cholestyramine Resin 4 gm 12/20/23 21:00 12/20/23 20:53 Cholestyramine Light 4 Gm Powd.Pack PO 4 gm HS LIO Administration Dextrose 12.5 gm 12/19/23 21:15 Dextrose 50% 25 Gm/50 Ml Syringe IV PUSH PRN PRN Hypoglycemia Protocol Furosemide 40 mg 12/21/23 09:00 12/21/23 09:15 Furosemide Inj 40 Mg/4 Ml Vial IV PUSH 40 mg BID LIO Administration Glucagon 1 mg 12/19/23 21:15 Glucagon For Inj 1 Mg Vial IM PRN PRN Hypoglycemia Protocol Glucose 15 gm 12/19/23 21:15 Glucose Oral Gel 15 Gm Of Glucse In 37.5 Gm Tube PO PRN PRN Hypoglycemia Protocol Guaifenesin 600 mg 12/20/23 21:00 12/21/23 09:15 Guaifenesin 12 Hr 600 Mg Tabcr PO 600 mg Q12HR LIO Administration Dextrose 1,000 mls @ 100 mls/hr 12/19/23 21:15 Dextrose 5% 1,000 Ml IVPB PRN PRN Hypoglycemia Protocol Insulin Aspart 3 - 6 units 12/20/23 08:00 12/21/23 11:56 Insulin Aspart (*Bkc) 100 Units/Ml SUB-Q Not Given TIDWM LIO Protocol Insulin Aspart 1 - 3 units 12/20/23 21:00 12/20/23 20:52 Insulin Aspart (*Bkc) 100 Units/Ml SUB-Q Not Given HS LIO Protocol Loratadine 10 mg 12/20/23 09:00 12/21/23 09:15 Loratadine 10 Mg Tablet PO 10 mg DAILY LIO Administration Magnesium Oxide 400 mg 12/20/23 09:00 12/21/23 09:16 Magnesium Oxide 400 Mg Tablet PO 400 mg DAILY LIO Administration Metoprolol Succinate 150 mg 12/21/23 21:00 Metoprolol Succinate Ext Rel 50 Mg Tabcr PO HS LIO Metoprolol Tartrate 5 mg 12/20/23 13:08 Metoprolol Tartrate Inj 5 Mg/5 Ml Vial IV PUSH Q2H PRN Tachycardia Multivitamins/Minerals 1 tablet 12/20/23 09:00 12/21/23 09:16 Opti-Gen Tab PO 1 tablet BID LIO Administration * Home Med * Insulin 10 unit 12/20/23 13:00 12/21/23 09:17 Glargine U-300 Conc SUB-Q 01/19/24 12:59 10 unit [Toujeo Solostar U- DAILY LIO Administration 300 Insulin] 300 Unit/Ml Pantoprazole Sodium 40 mg 12/20/23 09:00 12/21/23 09:16 Pantoprazole 40 Mg Tablet PO 40 mg QAM LIO Administration Radiology Results: ITS Impressions Chest X-Ray 12/19/23 12:43 Impression: Central congestive change and minimal bibasilar pulmonary edema/atelectasis. Wrist X-Ray 12/19/23 12:43 Impression: Questionable small acute fracture the dorsal triquetrum on lateral view. Mild degenerative change at the first CMC joint. Hand X-Ray 12/19/23 12:44 Impression: Mild degenerative change, as above. Labs Labs: Laboratory Results - last 24 hr 12/20/23 12/20/23 12/21/23 16:04 20:29 04:38 WBC RBC Hgb Hct MCV MCH MCHC RDW Plt Count MPV Sodium Potassium Chloride Carbon Dioxide Anion Gap BUN Creatinine Estim Creat Clear Calc Estimated GFR Glucose POC Capillary Glucose 249 H 206 H Calcium Magnesium 1.5 L Total Bilirubin AST ALT Alkaline Phosphatase Total Protein Albumin 12/21/23 12/21/23 12/21/23 04:41 07:21 11:24 WBC 8.2 RBC 4.51 Hgb 12.4 Hct 38.9 MCV 86.3 MCH 27.5 MCHC 31.9 L RDW 17.4 H Plt Count 200 MPV 10.6 H Sodium 137 Potassium 3.0 L Chloride 100 Carbon Dioxide 29 Anion Gap 8 BUN 27 H Creatinine 1.50 H Estim Creat Clear Calc 24 Estimated GFR 33 L Glucose 125 H POC Capillary Glucose 125 H 173 H Calcium 8.4 Magnesium Total Bilirubin 1.9 H AST 15 ALT 8 Alkaline Phosphatase 167 H Total Protein 7.0 Albumin 3.4 L Quality VTE Prophylaxis VTE prophylaxis: pharmacologic ordered (on apixaban)
--- NOTE | 2023-12-21 15:00 | PCSTNOTE ---
Please refer to the Modified Barium Swallow Evaluation in the EMR.
[2023-12-21 16:22] LABS: Glucose Point of Care 336 mg/dl (65-105)
[2023-12-21 16:22] LABS: Glucose Point of Care 339 mg/dl (65-105)
[2023-12-21] MEDS: INSULIN ASPART (*BKC) 100 UNITS/ML SUB-Q ×2 (16:48→20:26)
[2023-12-21 20:11] LABS: Glucose Point of Care 250 mg/dl (65-105)
[2023-12-21] MEDS: cefTRIAXone 2 GM/NS 100 ML 2 GM/100 ML BAG IVPB (20:25)
[2023-12-21] MEDS: METOPROLOL SUCCINATE EXT REL 50 MG TABCR 150 MG PO (20:25)
[2023-12-21] MEDS: CHOLESTYRAMINE LIGHT 4 GM POWD.PACK PO (21:33)
[2023-12-22] VITALS (22 sets, daily range): BP systolic 116–149; BP diastolic 50–79; PULSE 87–128; RESP 20–24; TEMP 36.6–36.8; O2SAT 94–99
[2023-12-22 05:20] LABS: Basophils Percent Auto 0.2 % (0.2-1.2); Eosinophils Absolute Auto 0.1 K/mm3 (0-0.3); Hematocrit 37.4 % (37.0-47.0); Hemoglobin 12.3 g/dL (12.0-15.0); Immature Granulocyte Absolute 0.05 K/mm3 (0.00-0.031); Immature Granulocyte Percent A 0.6 % (0-0.5); Lymphocytes Percent Auto 16.7 % (18.3-44.2); Mean Corpuscular HGB Conc 32.9 g/dl (32-36); Mean Platelet Volume 10.6 fl (7.4-10.4); Monocytes Absolute Auto 1.5 K/mm3 (0.1-0.6); Monocytes Percent Auto 16.7 % (2.6-8.5); Neutrophils Absolute Auto 5.8 K/mm3 (1.3-6.7); Neutrophils Percent Auto 64.8 % (45.5-73.1); Platelet Count Result 204 k/mm3 (150-375); Red Cell Distribution Width 17.5 % (11.5-14.5)
[2023-12-22 05:36] LABS: Alanine Aminotransferase 8 U/L (6-35); Albumin Level 3.3 g/dL (3.5-5.1); Alkaline Phosphatase 156 U/L (38-126); Anion Gap 6 mmol/L (4-12); Aspartate Amino Transferase 14 U/L (14-36); Bilirubin,Total 1.3 mg/dL (0.2-1.3); Blood Urea Nitrogen 27 mg/dL (7-17); Calcium 8.2 mg/dL (8.4-10.2); Carbon Dioxide 29 mmol/L (22-30); Chloride 100 mmol/L (98-107); Estimated CRCL calculation 27 ml/min; Estimated Glomerular Filt Rate 39; Glucose 141 mg/dL (65-110); Magnesium 1.7 mg/dL (1.6-2.3); Potassium 2.8 mmol/L (3.4-5.0); Sodium 135 mmol/L (137-145)
[2023-12-22] MEDS: MAGNESIUM SULF 2 GM/WATER 50ML 2 GM/50 ML BAG IVPB (06:41)
[2023-12-22] MEDS: POTASSIUM CHLORIDE INJ 40 MEQ in SODIUM CHLORIDE 0.9% IV 500 ML 130 MEQ IVPB (06:42)
[2023-12-22] MEDS: POTASSIUM CHLORIDE 20 MEQ PACKET (FOR LIQUID) 40 MEQ PO (06:42)
[2023-12-22 08:12] LABS: Glucose Point of Care 133 mg/dl (65-105)
[2023-12-22] MEDS: LORATADINE 10 MG TABLET PO (08:28)
[2023-12-22] MEDS: FUROSEMIDE INJ 40 MG/4 ML VIAL IV PUSH ×2 (08:28→16:55)
[2023-12-22] MEDS: OPTI-GEN TAB 1 TABLET PO ×2 (08:28→16:54)
[2023-12-22] MEDS: guaiFENesin 12 HR 600 MG TABCR PO ×2 (08:28→20:22)
[2023-12-22] MEDS: INSULIN GLARGINE 10 EACH SUB-Q (08:29)
[2023-12-22] MEDS: PANTOPRAZOLE 40 MG TABLET PO (08:31)
[2023-12-22] MEDS: APIXABAN 2.5 MG TABLET PO ×2 (08:31→20:22)
--- NOTE | 2023-12-22 09:32 | P.PNCA_ITS ---
Progress Note: A&P Assessment and Plan (1) Heart failure with reduced ejection fraction: Code(s): I50.20 - Unspecified systolic (congestive) heart failure Status: Acute Assessment and Plan: Acute on chronic systolic heart failure. * Agree with IV furosemide for now. Transition back to oral furosemide 40 mg p.o. b.i.d. tomorrow * Strict I&O * Daily weights * JOHN hose * Daily BMP while diuresing Electrolytes are significantly altered. Will Resume her potassium chloride at 40 mEq p.o. t.i.d.. Which is her standard home regimen (2) Chronic atrial fibrillation: Code(s): I48.20 - Chronic atrial fibrillation, unspecified Status: Acute Assessment and Plan: Now with RVR. She is asymptomatic in this regard, but this morning her rates in the 120's - 130's. * Continue with Metoprolol succinate but will increase to 150mg daily (scheduled at night, which is unusual but o.k.) Metoprolol tartrate 25 mg p.o. x 1 now * p.r.n. Lopressor IV for sustained HR >120 * Continue telemetry (3) Hypertension: Code(s): I10 - Essential (primary) hypertension Status: Acute Assessment and Plan: At goal (4) Chronic anticoagulation: Code(s): Z79.01 - [facility] (current) use of anticoagulants Status: Acute Assessment and Plan: Continue apixaban 2.5mg b.i.d - dose adjusted for age, renal function (5) Chronic kidney disease, stage 3: Code(s): N18.30 - Chronic kidney disease, stage 3 unspecified Status: Acute Assessment and Plan: Stable. Subjective Date/time seen: 12/22/23 09:32 Interval history: Cardiology follow up for Afib, CHF Date of service 12/21/2023: She is feeling worse today complaining of pain in both her wrists. She still has edema on her legs but it is improving. No sh ortness of breath or palpitations. Complains also of a productive cough. Date of service 12/22/2023: Frustrated about still being year. Frustrated by changes in her medications especially her potassium. She denies any chest pain. No shortness of breath. Swelling has improved. Review of Systems Constitutional: Constitutional: Denies body ache(s) ENT: Denies Normal hearing present Cardiovascular: Cardiovascular: Denies chest pain and Reports leg edema Respiratory: Respiratory: Denies chest congestion Musculoskeletal: Musculoskeletal: Denies back pain Exam Const: General: comfortable, no acute distress, alert and awake Orientation/consciousness: patient oriented x3 HENMT: Head: normal to inspection Eyes: General: appearance normal, both eyes and all related structures Sclera: sclerae normal Neck: Neck: normal visual inspection, supple and no JVD Carotids: normal carotid upstroke Resp: Effort & Inspection: normal respiratory effort Auscultation: crackles and diminished lung sounds Cardio: Rate: tachycardic Rhythm: abnormal rhythm irregularly irregular Heart sounds: S1 normal heart sound present, S2 normal heart sound present and no murmurs GI: Auscultation: normal bowel sounds Skin: General skin exam: normal color Neuro: General: patient oriented x3 Speech: normal speech Extrem: General: edema and pedal edema Right upper extremity: wrist abnormal to inspection Psych: Appearance: grossly normal Mental Status: mental status grossly normal Objective Data Vital Signs Vital Signs: Vital Signs - 24 hr 12/21/23 10:17 12/21/23 11:52 12/21/23 10:00 Temperature 36.5 C Pulse Rate 114 H 126 H 121 H Respiratory Rate 20 Blood Pressure 123/91 H Pulse Oximetry 98 Oxygen Delivery Oxygen Flow Rate 12/21/23 12:00 12/21/23 14:00 12/21/23 16:00 Temperature Pulse Rate 109 H 121 H 105 H Respiratory Rate Blood Pressure Pulse Oximetry Oxygen Delivery Oxygen Flow Rate 12/21/23 16:00 12/21/23 16:45 12/21/23 16:00 Temperature 36.8 C Pulse Rate 88 Respiratory Rate 16 Blood Pressure 94/70 L 125/94 H Pulse Oximetry 98 98 Oxygen Delivery Room Air Oxygen Flow Rate 12/21/23 18:00 12/21/23 20:14 12/21/23 20:25 Temperature 36.8 C Pulse Rate 106 H 121 H 112 H Respiratory Rate 20 Blood Pressure 150/86 H Pulse Oximetry 93 Oxygen Delivery Oxygen Flow Rate 12/21/23 20:00 12/21/23 20:00 12/21/23 21:24 Temperature Pulse Rate 122 H 122 H 118 H Respiratory Rate 20 20 Blood Pressure Pulse Oximetry 93 93 Oxygen Delivery Room Air Nasal Cannula Oxygen Flow Rate 2 12/21/23 22:00 12/22/23 00:27 12/22/23 00:00 Temperature 36.6 C Pulse Rate 105 H 110 H 111 H Respiratory Rate 20 20 Blood Pressure 149/79 H Pulse Oximetry 97 97 Oxygen Delivery Nasal Cannula Oxygen Flow Rate 2 12/22/23 00:00 12/22/23 02:00 12/22/23 04:00 Temperature Pulse Rate 111 H 102 H 108 H Respiratory Rate 20 Blood Pressure Pulse Oximetry 97 Oxygen Delivery Nasal Cannula Oxygen Flow Rate 2 12/22/23 04:00 12/22/23 05:59 12/22/23 05:00 Temperature 36.6 C Pulse Rate 108 H 110 H 128 H Respiratory Rate 20 Blood Pressure 123/70 Pulse Oximetry 96 Oxygen Delivery Oxygen Flow Rate 12/22/23 07:42 12/22/23 08:02 Temperature 36.8 C Pulse Rate 111 H Respiratory Rate 20 Blood Pressure 140/65 Pulse Oximetry 99 96 Oxygen Delivery Nasal Cannula Oxygen Flow Rate 2 Intake/Output Intake/Output: Intake & Output 12/19/23 12/20/23 12/21/23 12/22/23 23:59 23:59 23:59 23:59 Intake Total 2080 1650 960 Output Total 2200 1950 1200 Balance -120 -300 -240 Meds/Results Medications: Active Medications Generic Name Dose Route Start Last Admin Trade Name Freq PRN Reason Stop Dose Admin Acetaminophen 650 mg 12/19/23 21:15 12/21/23 09:14 Acetaminophen 325 Mg Tablet PO 650 mg Q6H PRN Administration Mild Pain (1-3) or Fever Apixaban 2.5 mg 12/19/23 21:15 12/22/23 08:31 Apixaban 2.5 Mg Tablet PO 2.5 mg Q12HR LIO Administration Cholestyramine Resin 4 gm 12/20/23 21:00 12/21/23 21:33 Cholestyramine Light 4 Gm Powd.Pack PO 4 gm HS LIO Administration Dextrose 12.5 gm 12/19/23 21:15 Dextrose 50% 25 Gm/50 Ml Syringe IV PUSH PRN PRN Hypoglycemia Protocol Furosemide 40 mg 12/21/23 09:00 12/22/23 08:28 Furosemide Inj 40 Mg/4 Ml Vial IV PUSH 40 mg BID LIO Administration Glucagon 1 mg 12/19/23 21:15 Glucagon For Inj 1 Mg Vial IM PRN PRN Hypoglycemia Protocol Glucose 15 gm 12/19/23 21:15 Glucose Oral Gel 15 Gm Of Glucse In 37.5 Gm Tube PO PRN PRN Hypoglycemia Protocol Guaifenesin 600 mg 12/20/23 21:00 12/22/23 08:28 Guaifenesin 12 Hr 600 Mg Tabcr PO 600 mg Q12HR LIO Administration Dextrose 1,000 mls @ 100 mls/hr 12/19/23 21:15 Dextrose 5% 1,000 Ml IVPB PRN PRN Hypoglycemia Protocol Ceftriaxone Sodium 2 gm in 100 mls @ 200 mls/hr 12/21/23 21:00 12/21/23 20:55 Rocephin 2 Gm/Ns 100 Ml IVPB Infused Q24H LIO Infusion Potassium Chloride 40 meq/ 520 mls @ 130 mls/hr 12/22/23 05:55 12/22/23 06:42 Sodium Chloride IVPB 12/22/23 09:54 130 mls/hr ONCE ONE Administration Insulin Aspart 3 - 6 units 12/20/23 08:00 12/22/23 08:28 Insulin Aspart (*Bkc) 100 Units/Ml SUB-Q Not Given TIDWM [facility] Protocol Insulin Aspart 1 - 3 units 12/20/23 21:00 12/21/23 20:26 Insulin Aspart (*Bkc) 100 Units/Ml SUB-Q 1 units HS LIO Administration Protocol Loratadine 10 mg 12/20/23 09:00 12/22/23 08:28 Loratadine 10 Mg Tablet PO 10 mg DAILY LIO Administration Magnesium Oxide 400 mg 12/20/23 09:00 12/21/23 09:16 Magnesium Oxide 400 Mg Tablet PO 400 mg DAILY LIO Administration Metoprolol Succinate 150 mg 12/21/23 21:00 12/21/23 20:25 Metoprolol Succinate Ext Rel 50 Mg Tabcr PO 150 mg HS LIO Administration Metoprolol Tartrate 5 mg 12/20/23 13:08 Metoprolol Tartrate Inj 5 Mg/5 Ml Vial IV PUSH Q2H PRN Tachycardia Multivitamins/Minerals 1 tablet 12/20/23 09:00 12/22/23 08:28 Opti-Gen Tab PO 1 tablet BID LIO Administration * Home Med * Insulin 10 unit 12/20/23 13:00 12/22/23 08:29 Glargine U-300 Conc SUB-Q 01/19/24 12:59 10 unit [Josue Veronicaar U- DAILY LIO Administration 300 Insulin] 300 Unit/Ml Pantoprazole Sodium 40 mg 12/20/23 09:00 12/22/23 08:31 Pantoprazole 40 Mg Tablet PO 40 mg QAM LIO Administration Radiology Results: ITS Impressions Chest X-Ray 12/19/23 12:43 Impression: Central congestive change and minimal bibasilar pulmonary edema/atelectasis. Wrist X-Ray 12/19/23 12:43 Impression: Questionable small acute fracture the dorsal triquetrum on lateral view. Mild degenerative change at the first CMC joint. Hand X-Ray 12/19/23 12:44 Impression: Mild degenerative change, as above. Modified Barium Swallow 12/21/23 15:14 IMPRESSION: 1. Normal modified barium swallow. 2. Please refer to the speech therapy report for recommendations. Labs Labs: Laboratory Results - last 24 hr 12/21/23 12/21/23 12/21/23 04:38 11: 16:18 WBC RBC Hgb Hct MCV MCH MCHC RDW Plt Count MPV Immature Gran % (Auto) Neut % (Auto) Lymph % (Auto) [place] % (Auto) Eos % (Auto) Baso % (Auto) Lymph # (Auto) [place] # (Auto) Eos # (Auto) Baso # (Auto) Abs Immat Gran (auto) Absolute Neuts (auto) Absolute Nucleated RBC Nucleated RBC % Sodium Potassium Chloride Carbon Dioxide Anion Gap BUN Creatinine Estim Creat Clear Calc Estimated GFR Glucose POC Capillary Glucose 173 H 336 H Calcium Magnesium 1.5 L Total Bilirubin AST ALT Alkaline Phosphatase Total Protein Albumin 12/21/23 12/21/23 12/22/23 16:20 20:03 04:43 WBC RBC Hgb Hct MCV MCH MCHC RDW Plt Count MPV Immature Gran % (Auto) Neut % (Auto) Lymph % (Auto) [place] % (Auto) Eos % (Auto) Baso % (Auto) Lymph # (Auto) [place] # (Auto) Eos # (Auto) Baso # (Auto) Abs Immat Gran (auto) Absolute Neuts (auto) Absolute Nucleated RBC Nucleated RBC % Sodium 135 L Potassium 2.8 L* Chloride 100 Carbon Dioxide 29 Anion Gap 6 BUN 27 H Creatinine 1.30 H Estim Creat Clear Calc 27 Estimated GFR 39 L Glucose 141 H POC Capillary Glucose 339 H 250 H Calcium 8.2 L Magnesium 1.7 Total Bilirubin 1.3 AST 14 ALT 8 Alkaline Phosphatase 156 H Total Protein 7.0 Albumin 3.3 L 12/22/23 12/22/23 04:44 07:39 WBC 9.0 RBC 4.40 Hgb 12.3 Hct 37.4 MCV 85.0 MCH 28.0 MCHC 32.9 RDW 17.5 H Plt Count 204 MPV 10.6 H Immature Gran % (Auto) 0.6 H Neut % (Auto) 64.8 Lymph % (Auto) 16.7 L [place] % (Auto) 16.7 H Eos % (Auto) 1.0 Baso % (Auto) 0.2 Lymph # (Auto) 1.50 [place] # (Auto) 1.5 H Eos # (Auto) 0.1 Baso # (Auto) 0.0 Abs Immat Gran (auto) 0.05 H Absolute Neuts (auto) 5.8 Absolute Nucleated RBC 0.000 Nucleated RBC % 0.0 Sodium Potassium Chloride Carbon Dioxide Anion Gap BUN Creatinine Estim Creat Clear Calc Estimated GFR Glucose POC Capillary Glucose 133 H Calcium Magnesium Total Bilirubin AST ALT Alkaline Phosphatase Total Protein Albumin
[2023-12-22] MEDS: MAGNESIUM OXIDE 400 MG TABLET PO (09:53)
[2023-12-22] MEDS: METOPROLOL TARTRATE 25 MG TABLET PO (09:53)
--- NOTE | 2023-12-22 11:49 | PHAR ---
Home medication KCl 10mEQ tablets identified in pharmacy and returned to IMU
[2023-12-22 12:00] LABS: Glucose Point of Care 236 mg/dl (65-105)
[2023-12-22] MEDS: INSULIN ASPART (*BKC) 100 UNITS/ML SUB-Q ×2 (12:09→20:25)
[2023-12-22] MEDS: ACETAMINOPHEN 325 MG TABLET 650 MG PO ×2 (12:14→20:23)
--- NOTE | 2023-12-22 12:21 | PCPTNOTE ---
Dr. Shaikh's office contacted to clarify weight bearing status of R UE. Dr. Shaikh confirms patient can be weight bearing as tolerated R UE with splint or brace.
--- NOTE | 2023-12-22 14:48 | P.PNIM_ITS ---
Progress Note: A&P Assessment and Plan (1) Atrial fibrillation with rapid ventricular response: Code(s): I48.91 - Unspecified atrial fibrillation Status: Acute (2) Heart failure with reduced ejection fraction: Code(s): I50.20 - Unspecified systolic (congestive) heart failure Status: Acute (3) Right wrist pain: Code(s): M25.531 - Pain in right wrist Status: Acute (4) Hyperkalemia: Code(s): E87.5 - Hyperkalemia Status: Acute (5) Chronic kidney disease, stage 3: Code(s): N18.30 - Chronic kidney disease, stage 3 unspecified Status: Acute (6) Chronic anticoagulation: Code(s): Z79.01 - retirement (current) use of anticoagulants Status: Acute (7) Insulin dependent type 2 diabetes mellitus: Code(s): E11.9 - Type 2 diabetes mellitus without complications; 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 She also reports having a cough and congestion the past couple of days. Labs, imaging, EKG, and all reports were personally reviewed. Wrist x-ray showed possible right triquetrum fracture for which she has been placed in a splint. After receiving a nebulizer treatment she went into rapid atrial fibrillation and will be given a dose of p.o. metoprolol to see if that will help her rate. Chest x-ray shows mild pulmonary edema and central congestive changes, she is edematous, and proBNP is elevated. She will be diuresed with furosemide 40 mg IV with close monitoring of volume status, renal function, and electrolytes. Repeat potassium this evening to ensure it is improving. Her medication reconciliation states that she takes 40 mEq of potassium chloride today which will likely need to be readdressed. Kidney function is stable. Continue basal insulin. Initiate sliding scale insulin, Accu-Cheks, and hypoglycemic protocol. Her home medications will be reviewed and resumed as appropriate. Findings and treatment plan were discussed with the patient. Questions were solicited and answered to satisfaction. The patient's medical management will be taken over by the hospitalist team in a.m. #Small acute fracture the dorsal triquetrum Due to FOOSH On wrist Splint Conservative therapy per ortho #Aif Fib with RVR Rate in 120 - 130s Continue Metorprolol to 150mg daily, with PRN lopressor for HR above 120, one dose of Metoprolol 25mg po once per cards On apixaban 2.5mg PO BID Cardiology following # Hyperkalemia, resolved now Hypokalemic On home K 40 meq TID daily now on home regimen monitor K 2.8, repeat after replacement 4.0 monitor CHF Exacerbation Chest x-ray shows central congestive changes and minimal bibasilar pulmonary edema/atelectasis No evidence of pneumonia Lasix 40mg IV x BID, transition to PO tomorrow per cards Home med Lasix 40mg PO QD on hold Suspected aspiration, ruled out Patient was noted to be coughing during bedside swallow eval S/p MBS and no aspiration noted patient on regular diet ST following Continue SSI with accucheks and titrate other home meds DVT prophylaxis on Eliquis continue PT/OT Subjective Date/time seen: 12/22/23 14:48 Interval history: Patient comfortable at bedside HR in 120-130s this morning Cardiology recommends one more day of IV lasix Review of Systems Review of Systems: 12 systems were reviewed and are negativ e except for as per HPI. Exam Narrative: General: Mildly ill-appearing elderly female sitting up in bed in no acute distress. Weight: 83.2 kg. BMI: 32.5. HEENT: PERRL, EOMI. Sclera anicteric. Conjunctiva mildly injected. Tacky mucous membranes. Neck: Supple. No jugular venous distention. Respiratory: Mild conversational dyspnea but she appears in no acute distress. Fine crackles heard at the bases. Occasional rhonchi which clear with cough. Cardiovascular: Irregularly irregular rate and rhythm. Gastrointestinal: Abdomen is soft and nontender with positive bowel sounds. Bladder feels distended. Skin: Warm and dry. Lower extremity show evidence of chronic stasis dermatitis and some erythema without warmth. Extremities: No cyanosis or clubbing. 2+ lower extremity edema to the shins. No palpable knots or cords. Negative Luis Daniel sign bilaterally. Neurological: Alert. Cranial nerves 2-12 are grossly intact. No gross focal deficits to casual conversation. Psychiatric: Pleasant and cooperative with normal mood and affect. Judgment and insight intact. Objective Data Vital Signs Vital Signs: Vital Signs - 24 hr 12/21/23 16:00 12/21/23 16:00 12/21/23 16:45 Temperature 98.2 F Pulse Rate 105 H 88 Respiratory Rate 16 Blood Pressure 94/70 L 125/94 H Pulse Oximetry 98 Oxygen Delivery Oxygen Flow Rate 12/21/23 16:00 12/21/23 18:00 12/21/23 20:14 Temperature 98.3 F Pulse Rate 106 H 121 H Respiratory Rate 20 Blood Pressure 150/86 H Pulse Oximetry 98 93 Oxygen Delivery Room Air Oxygen Flow Rate 12/21/23 20:25 12/21/23 20:00 12/21/23 20:00 Temperature Pulse Rate 112 H 122 H 122 H Respiratory Rate 20 Blood Pressure Pulse Oximetry 93 Oxygen Delivery Room Air Oxygen Flow Rate 12/21/23 21:24 12/21/23 22:00 12/22/23 00:27 Temperature 97.9 F Pulse Rate 118 H 105 H 110 H Respiratory Rate 20 20 Blood Pressure 149/79 H Pulse Oximetry 93 97 Oxygen Delivery Nasal Cannula Oxygen Flow Rate 2 12/22/23 00:00 12/22/23 00:00 12/22/23 02:00 Temperature Pulse Rate 111 H 111 H 102 H Respiratory Rate 20 Blood Pressure Pulse Oximetry 97 Oxygen Delivery Nasal Cannula Oxygen Flow Rate 2 12/22/23 04:00 12/22/23 04:00 12/22/23 05:59 Temperature Pulse Rate 108 H 108 H 110 H Respiratory Rate 20 Blood Pressure Pulse Oximetry 97 Oxygen Delivery Nasal Cannula Oxygen Flow Rate 2 12/22/23 05:00 12/22/23 07:42 12/22/23 08:02 Temperature 97.8 F 98.2 F Pulse Rate 128 H 111 H Respiratory Rate 20 20 Blood Pressure 123/70 140/65 Pulse Oximetry 96 99 96 Oxygen Delivery Nasal Cannula Oxygen Flow Rate 2 12/22/23 08:30 12/22/23 10:00 12/22/23 09:53 Temperature Pulse Rate 119 H 125 H 125 H Respiratory Rate Blood Pressure Pulse Oximetry Oxygen Delivery Oxygen Flow Rate 12/22/23 12:00 12/22/23 12:00 12/22/23 14:00 Temperature 98.2 F Pulse Rate 92 110 H 112 H Respiratory Rate 24 H Blood Pressure 126/76 Pulse Oximetry 96 Oxygen Delivery Oxygen Flow Rate Intake/Output Intake/Output: Intake & Output 12/19/23 12/20/23 12/21/23 12/22/23 23:59 23:59 23:59 23:59 Intake Total 2080 1650 1200 Output Total 2200 1950 1200 Balance -120 -300 0 Meds/Results Medications: Active Medications Generic Name Dose Route Start Last Admin Trade Name Freq PRN Reason Stop Dose Admin Acetaminophen 650 mg 12/19/23 21:15 12/22/23 12:14 Acetaminophen 325 Mg Tablet PO 650 mg Q6H PRN Administration Mild Pain (1-3) or Fever Amoxicillin/Clavulanate Potassium 1 tablet 12/22/23 21:00 Amoxicillin/Clavulanate K 500-125 Mg Tab PO 12/28/23 09:01 Q12HR LIO Apixaban 2.5 mg 12/19/23 21:15 12/22/23 08:31 Apixaban 2.5 Mg Tablet PO 2.5 mg Q12HR LIO Administration Cholestyramine Resin 4 gm 12/20/23 21:00 12/21/23 21:33 Cholestyramine Light 4 Gm Powd.Pack PO 4 gm HS LIO Administration Dextrose 12.5 gm 12/19/23 21:15 Dextrose 50% 25 Gm/50 Ml Syringe IV PUSH PRN PRN Hypoglycemia Protocol Furosemide 40 mg 12/21/23 09:00 12/22/23 08:28 Furosemide Inj 40 Mg/4 Ml Vial IV PUSH 40 mg BID LIO Administration Glucagon 1 mg 12/19/23 21:15 Glucagon For Inj 1 Mg Vial IM PRN PRN Hypoglycemia Protocol Glucose 15 gm 12/19/23 21:15 Glucose Oral Gel 15 Gm Of Glucse In 37.5 Gm Tube PO PRN PRN Hypoglycemia Protocol Guaifenesin 600 mg 12/20/23 21:00 12/22/23 08:28 Guaifenesin 12 Hr 600 Mg Tabcr PO 600 mg Q12HR LIO Administration Dextrose 1,000 mls @ 100 mls/hr 12/19/23 21:15 Dextrose 5% 1,000 Ml IVPB PRN PRN Hypoglycemia Protocol Insulin Aspart 3 - 6 units 12/20/23 08:00 12/22/23 12:09 Insulin Aspart (*Bkc) 100 Units/Ml SUB-Q 3 units TIDWM LIO Administration Protocol Insulin Aspart 1 - 3 units 12/20/23 21:00 12/21/23 20:26 Insulin Aspart (*Bkc) 100 Units/Ml SUB-Q 1 units HS LIO Administration Protocol Loratadine 10 mg 12/20/23 09:00 12/22/23 08:28 Loratadine 10 Mg Tablet PO 10 mg DAILY LIO Administration Magnesium Oxide 400 mg 12/20/23 09:00 12/22/23 09:53 Magnesium Oxide 400 Mg Tablet PO 400 mg DAILY LIO Administration Metoprolol Succinate 150 mg 12/21/23 21:00 12/21/23 20:25 Metoprolol Succinate Ext Rel 50 Mg Tabcr PO 150 mg HS LIO Administration Metoprolol Tartrate 5 mg 12/20/23 13:08 Metoprolol Tartrate Inj 5 Mg/5 Ml Vial IV PUSH Q2H PRN Tachycardia Multivitamins/Minerals 1 tablet 12/20/23 09:00 12/22/23 08:28 Opti-Gen Tab PO 1 tablet BID LIO Administration * Home Med * Insulin 10 unit 12/20/23 13:00 12/22/23 08:29 Glargine U-300 Conc SUB-Q 01/19/24 12:59 10 unit [Josue Solostar U- DAILY LIO Administration 300 Insulin] 300 Unit/Ml Pantoprazole Sodium 40 mg 12/20/23 09:00 12/22/23 08:31 Pantoprazole 40 Mg Tablet PO 40 mg QAM LIO Administration Potassium Chloride 40 meq 12/22/23 13:00 12/22/23 12:17 Home Med* Potassium Chloride 10 Meq Er Tablet PO Not Given TID [facility] Radiology Results: ITS Impressions Chest X-Ray 12/19/23 12:43 Impression: Central congestive change and minimal bibasilar pulmonary edema/atelectasis. Wrist X-Ray 12/19/23 12:43 Impression: Questionable small acute fracture the dorsal triquetrum on lateral view. Mild degenerative change at the first CMC joint. Hand X-Ray 12/19/23 12:44 Impression: Mild degenerative change, as above. Modified Barium Swallow 12/21/23 15:14 IMPRESSION: 1. Normal modified barium swallow. 2. Please refer to the speech therapy report for recommendations. Labs Labs: Laboratory Results - last 24 hr 12/21/23 12/21/23 12/21/23 16:18 16:20 20:03 WBC RBC Hgb Hct MCV MCH MCHC RDW Plt Count MPV Immature Gran % (Auto) Neut % (Auto) Lymph % (Auto) Dawson % (Auto) Eos % (Auto) Baso % (Auto) Lymph # (Auto) Dawson # (Auto) Eos # (Auto) Baso # (Auto) Abs Immat Gran (auto) Absolute Neuts (auto) Absolute Nucleated RBC Nucleated RBC % Sodium Potassium Chloride Carbon Dioxide Anion Gap BUN Creatinine Estim Creat Clear Calc Estimated GFR Glucose POC Capillary Glucose 336 H 339 H 250 H Calcium Magnesium Total Bilirubin AST ALT Alkaline Phosphatase Total Protein Albumin 12/22/23 12/22/23 12/22/23 04:43 04:44 07:39 WBC 9.0 RBC 4.40 Hgb 12.3 Hct 37.4 MCV 85.0 MCH 28.0 MCHC 32.9 RDW 17.5 H Plt Count 204 MPV 10.6 H Immature Gran % (Auto) 0.6 H Neut % (Auto) 64.8 Lymph % (Auto) 16.7 L Dawson % (Auto) 16.7 H Eos % (Auto) 1.0 Baso % (Auto) 0.2 Lymph # (Auto) 1.50 Dawson # (Auto) 1.5 H Eos # (Auto) 0.1 Baso # (Auto) 0.0 Abs Immat Gran (auto) 0.05 H Absolute Neuts (auto) 5.8 Absolute Nucleated RBC 0.000 Nucleated RBC % 0.0 Sodium 135 L Potassium 2.8 L* Chloride 100 Carbon Dioxide 29 Anion Gap 6 BUN 27 H Creatinine 1.30 H Estim Creat Clear Calc 27 Estimated GFR 39 L Glucose 141 H POC Capillary Glucose 133 H Calcium 8.2 L Magnesium 1.7 Total Bilirubin 1.3 AST 14 ALT 8 Alkaline Phosphatase 156 H Total Protein 7.0 Albumin 3.3 L 12/22/23 12/22/23 11:27 13:26 WBC RBC Hgb Hct MCV MCH MCHC RDW Plt Count MPV Immature Gran % (Auto) Neut % (Auto) Lymph % (Auto) Dawson % (Auto) Eos % (Auto) Baso % (Auto) Lymph # (Auto) Dawson # (Auto) Eos # (Auto) Baso # (Auto) Abs Immat Gran (auto) Absolute Neuts (auto) Absolute Nucleated RBC Nucleated RBC % Sodium Potassium 4.0 Chloride Carbon Dioxide Anion Gap BUN Creatinine Estim Creat Clear Calc Estimated GFR Glucose POC Capillary Glucose 236 H Calcium Magnesium Total Bilirubin AST ALT Alkaline Phosphatase Total Protein Albumin Quality VTE Prophylaxis VTE prophylaxis: pharmacologic ordered (on apixaban)
[2023-12-22 16:34] LABS: Glucose Point of Care 187 mg/dl (65-105)
[2023-12-22] MEDS: POTASSIUM CHLORIDE 10 MEQ 40 MEQ PO (16:55)
[2023-12-22 19:48] LABS: Glucose Point of Care 295 mg/dl (65-105)
[2023-12-22] MEDS: METOPROLOL SUCCINATE EXT REL 50 MG TABCR 150 MG PO (20:24)
[2023-12-22] MEDS: AMOXICILLIN/CLAVULANATE K 500-125 MG TAB 1 TABLET PO (20:24)
[2023-12-22] MEDS: CHOLESTYRAMINE LIGHT 4 GM POWD.PACK PO (22:14)
[2023-12-23] VITALS (11 sets, daily range): BP systolic 122–149; BP diastolic 65–87; PULSE 98–108; RESP 20–28; TEMP 36.4–36.7; O2SAT 91–100
[2023-12-23 08:03] LABS: Glucose Point of Care 206 mg/dl (65-105)
[2023-12-23] MEDS: MAGNESIUM OXIDE 400 MG TABLET PO (08:33)
[2023-12-23] MEDS: OPTI-GEN TAB 1 TABLET PO (08:33)
[2023-12-23] MEDS: AMOXICILLIN/CLAVULANATE K 500-125 MG TAB 1 TABLET PO (08:34)
[2023-12-23] MEDS: LORATADINE 10 MG TABLET PO (08:34)
[2023-12-23] MEDS: PANTOPRAZOLE 40 MG TABLET PO (08:34)
[2023-12-23] MEDS: APIXABAN 2.5 MG TABLET PO (08:34)
[2023-12-23] MEDS: POTASSIUM CHLORIDE 10 MEQ 40 MEQ PO ×2 (08:35→13:12)
[2023-12-23] MEDS: INSULIN GLARGINE 10 EACH SUB-Q (08:37)
[2023-12-23] MEDS: INSULIN ASPART (*BKC) 100 UNITS/ML SUB-Q (08:37)
[2023-12-23] MEDS: FUROSEMIDE INJ 40 MG/4 ML VIAL IV PUSH (08:50)
[2023-12-23] MEDS: guaiFENesin 12 HR 600 MG TABCR PO (11:11)
[2023-12-23 11:56] LABS: Glucose Point of Care 192 mg/dl (65-105)
--- NOTE | 2023-12-23 11:59 | P.PNCA_ITS ---
Progress Note: A&P Assessment and Plan (1) Heart failure with reduced ejection fraction: Code(s): I50.20 - Unspecified systolic (congestive) heart failure Status: Acute Assessment and Plan: Acute on chronic systolic heart failure. Improved with IV furosemide * Transition back to oral furosemide 40 mg p.o. b.i.d. today * OK for discharge from a cardiac standpoint (2) Chronic atrial fibrillation: Code(s): I48.20 - Chronic atrial fibrillation, unspecified Status: Acute Assessment and Plan: Now with RVR. She is asymptomatic in this regard, but this morning her rates in the 120's - 130's. 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 Subjective Date/time seen: 12/23/23 11:59 Interval history: Cardiology follow up for Afib, CHF Date of service 12/21/2023: She is feeling worse today complaining of pain in both her wrists. She still has edema on her legs but it is improving. No shortness of breath or palpitations. Complains also of a productive cough. Date of service 12/22/2023: Frustrated about still being year. Frustrated by changes in her medications especially her potassium. She denies any chest pain. No shortness of breath. Swelling has improved. Date of service 12/23/2023: Feels fatigued today as she did not sleep well last night. Otherwise has no complaints aside from cough. Review of Systems Review of Systems: All systems reviewed & are unremarkable except as noted in HPI and below Constitutional: Constitutional: Denies body ache(s) ENT: Denies Normal hearing present Cardiovascular: Cardiovascular: Denies chest pain and Reports leg edema Respiratory: Respiratory: Denies chest congestion Musculoskeletal: Musculoskeletal: Denies back pain Neurologic: Denies Normal hearing present Exam Const: General: comfortable, no acute distress, alert and awake Orientation/consciousness: patient oriented x3 HENMT: Head: normal to inspection Eyes: General: appearance normal, both eyes and all related structures Sclera: sclerae normal Pupils: Equal, round and reactive pupils present Neck: Neck: normal visual inspection, supple and no JVD Carotids: normal carotid upstroke Resp: Effort & Inspection: normal respiratory effort Auscultation: clear to auscultation bilaterally, crackles and diminished lung sounds Cardio: Rate: regular rate Rhythm: abnormal rhythm irregularly irregular Heart sounds: S1 normal heart sound present, S2 normal heart sound present and no murmurs GI: Auscultation: normal bowel sounds Skin: General skin exam: normal color Neuro: General: patient oriented x3 Cranial nerves: Yes Equal, round and reactive pupils present and No Normal hearing present Speech: normal speech Extrem: General: edema and pedal edema Right upper extremity: wrist abnormal to inspection Psych: Appearance: grossly normal Mental Status: mental status grossly normal Objective Data Vital Signs Vital Signs: Vital Signs - 24 hr 12/22/23 12:00 12/22/23 12:00 12/22/23 14:00 Temperature 36.8 C Pulse Rate 92 110 H 112 H Respiratory Rate 24 H Blood Pressure 126/76 Pulse Oximetry 96 Oxygen Delivery Oxygen Flow Rate 12/22/23 15:33 12/22/23 16:30 12/22/23 18:00 Temperature 36.7 C Pulse Rate 87 108 H 112 H Respiratory Rate 24 H Blood Pressure 121/50 L Pulse Oximetry 94 Oxygen Delivery Oxygen Flow Rate 12/22/23 20:03 12/22/23 20:24 12/22/23 20:00 Temperature 36.7 C Pulse Rate 123 H 118 H 108 H Respiratory Rate 20 20 Blood Pressure 126/61 Pulse Oximetry 99 99 Oxygen Delivery Nasal Cannula Oxygen Flow Rate 2 12/22/23 20:00 12/22/23 21:47 12/22/23 23:34 Temperature 36.7 C Pulse Rate 108 H 106 H 108 H Respiratory Rate 20 Blood Pressure 116/74 Pulse Oximetry 99 Oxygen Delivery Oxygen Flow Rate 12/22/23 23:37 12/22/23 23:37 12/23/23 02:00 Temperature Pulse Rate 98 98 100 Respiratory Rate 20 Blood Pressure Pulse Oximetry 99 Oxygen Delivery Nasal Cannula Oxygen Flow Rate 2 12/23/23 03:30 12/23/23 04:00 12/23/23 04:00 Temperature 36.7 C Pulse Rate 101 H 105 H 105 H Respiratory Rate 20 20 Blood Pressure 122/65 Pulse Oximetry 98 98 Oxygen Delivery Nasal Cannula Oxygen Flow Rate 2 12/23/23 05:39 12/23/23 07:43 12/23/23 09:28 Temperature 36.6 C Pulse Rate 98 105 H Respiratory Rate 20 Blood Pressure 149/87 H Pulse Oximetry 100 91 Oxygen Delivery Room Air Oxygen Flow Rate 12/23/23 08:40 12/23/23 10:00 12/23/23 11:29 Temperature 36.4 C Pulse Rate 104 H 103 H 108 H Respiratory Rate 28 H Blood Pressure 147/80 H Pulse Oximetry 96 Oxygen Delivery Oxygen Flow Rate Intake/Output Intake/Output: Intake & Output 12/20/23 12/21/23 12/22/23 12/23/23 23:59 23:59 23:59 23:59 Intake Total 2080 1650 1440 440 Output Total 2200 1950 1550 450 Balance -120 -300 -110 -10 Meds/Results Medications: Active Medications Generic Name Dose Route Start Last Admin Trade Name Freq PRN Reason Stop Dose Admin Acetaminophen 650 mg 12/19/23 21:15 12/22/23 20:23 Acetaminophen 325 Mg Tablet PO 650 mg Q6H PRN Administration Mild Pain (1-3) or Fever Amoxicillin/Clavulanate Potassium 1 tablet 12/22/23 21:00 12/23/23 08:34 Amoxicillin/Clavulanate K 500-125 Mg Tab PO 12/28/23 09:01 1 tablet Q12HR LIO Administration Apixaban 2.5 mg 12/19/23 21:15 12/23/23 08:34 Apixaban 2.5 Mg Tablet PO 2.5 mg Q12HR LIO Administration Cholestyramine Resin 4 gm 12/20/23 21:00 12/22/23 22:14 Cholestyramine Light 4 Gm Powd.Pack PO 4 gm HS LIO Administration Dextrose 12.5 gm 12/19/23 21:15 Dextrose 50% 25 Gm/50 Ml Syringe IV PUSH PRN PRN Hypoglycemia Protocol Furosemide 40 mg 12/21/23 09:00 12/23/23 08:50 Furosemide Inj 40 Mg/4 Ml Vial IV PUSH 40 mg BID LIO Administration Glucagon 1 mg 12/19/23 21:15 Glucagon For Inj 1 Mg Vial IM PRN PRN Hypoglycemia Protocol Glucose 15 gm 12/19/23 21:15 Glucose Oral Gel 15 Gm Of Glucse In 37.5 Gm Tube PO PRN PRN Hypoglycemia Protocol Guaifenesin 600 mg 12/20/23 21:00 12/22/23 20:22 Guaifenesin 12 Hr 600 Mg Tabcr PO 600 mg Q12HR LIO Administration Dextrose 1,000 mls @ 100 mls/hr 12/19/23 21:15 Dextrose 5% 1,000 Ml IVPB PRN PRN Hypoglycemia Protocol Insulin Aspart 3 - 6 units 12/20/23 08:00 12/23/23 08:37 Insulin Aspart (*Bkc) 100 Units/Ml SUB-Q 3 units TIDWM LIO Administration Protocol Insulin Aspart 1 - 3 units 12/20/23 21:00 12/22/23 20:25 Insulin Aspart (*Bkc) 100 Units/Ml SUB-Q 1 units HS LIO Administration Protocol Loratadine 10 mg 12/20/23 09:00 12/23/23 08:34 Loratadine 10 Mg Tablet PO 10 mg DAILY LIO Administration Magnesium Oxide 400 mg 12/20/23 09:00 12/23/23 08:33 Magnesium Oxide 400 Mg Tablet PO 400 mg DAILY LIO Administration Metoprolol Succinate 150 mg 12/21/23 21:00 12/22/23 20:24 Metoprolol Succinate Ext Rel 50 Mg Tabcr PO 150 mg HS LIO Administration Metoprolol Tartrate 5 mg 12/20/23 13:08 Metoprolol Tartrate Inj 5 Mg/5 Ml Vial IV PUSH Q2H PRN Tachycardia Multivitamins/Minerals 1 tablet 12/20/23 09:00 12/23/23 08:33 Opti-Gen Tab PO 1 tablet BID LIO Administration * Home Med * Insulin 10 unit 12/20/23 13:00 12/23/23 08:37 Glargine U-300 Conc SUB-Q 01/19/24 12:59 10 unit [Toujeo Solostar U- DAILY LIO Administration 300 Insulin] 300 Unit/Ml Pantoprazole Sodium 40 mg 12/20/23 09:00 12/23/23 08:34 Pantoprazole 40 Mg Tablet PO 40 mg QAM LIO Administration Potassium Chloride 40 meq 12/22/23 13:00 11/14/24 08:35 Home Med* Potassium Chloride 10 Meq Er Tablet PO 40 meq TID LIO Administration Radiology Results: ITS Impressions Chest X-Ray 12/19/23 12:43 Impression: Central congestive change and minimal bibasilar pulmonary edema/atelectasis. Wrist X-Ray 12/19/23 12:43 Impression: Questionable small acute fracture the dorsal triquetrum on lateral view. Mild degenerative change at the first CMC joint. Hand X-Ray 12/19/23 12:44 Impression: Mild degenerative change, as above. Modified Barium Swallow 12/21/23 15:14 IMPRESSION: 1. Normal modified barium swallow. 2. Please refer to the speech therapy report for recommendations. Labs Labs: Laboratory Results - last 24 hr 12/22/23 12/22/23 12/22/23 11:27 13:26 15:53 Potassium 4.0 POC Capillary Glucose 236 H 187 H 12/22/23 12/23/23 12/23/23 19:41 07:39 11:32 Potassium POC Capillary Glucose 295 H 206 H 192 H Quality VTE Prophylaxis VTE prophylaxis: pharmacologic ordered (on apixaban)
[2023-12-23 12:27] LABS: Potassium 3.7 mmol/L (3.4-5.0)
[2023-12-23] MEDS: TAMSULOSIN HCL 0.4 MG CAPSULE PO (13:12)
--- NOTE | 2023-12-23 13:26 | P.PNOP_ITS ---
Progress Note: A&P Assessment and Plan (1) Fracture of triquetrum: Qualifiers: Encounter type: initial encounter Fracture type: closed Fracture alignment: nondisplaced Laterality: right Qualified Code(s): S62.114A - Nondisplaced fracture of triquetrum [cuneiform] bone, right wrist, initial encounter for closed fracture Code(s): S62.113A - Displaced fracture of triquetrum [cuneiform] bone, unspecified wrist, initial encounter for closed fracture Status: Acute Assessment and Plan: Radiographs of the right wrist revealed a small acute fracture the dorsal triquetrum. The fracture type and injury as well as radiographs discussed with the patient and family. Operative and nonoperative treatment options reviewed. Recommended non operative treatment. Risk of nonunion, malunion or late displacement discussed. Stiffness, pain and possible dysfunction of the joint discussed. Fracture precautions and activity restrictions reviewed. The patient verbalizes understanding. Transition of Velcro splint at this time. Ice/elevate. ROM of hand as tolerated. Monitor NV status. Dispo: Return to [place]. Follow up in 3 weeks for repeat radiographs. Plan Reviewed history, exam, radiographs and current labs with attending MD and covering surgeon, Dr. Shaikh, who agrees with current plan as indicated above. No further recommendations from Dr. Shaikh at this time. Subjective Subjective Date/Time Seen: 12/23/23 13:26 Interval history: Patient doing well. Pain of the right wrist well controlled. No new concerns today. Hopeful for discharge soon. Review of Systems Review of Systems: All systems reviewed & are unremarkable except as noted in HPI and below Exam Const: General: comfortable and no acute distress HENMT: Mouth: Yes moist mucous membranes Eyes: General: appearance normal, both eyes and all related structures Neck: Neck: supple and no JVD Resp: Effort & Inspection: normal respiratory effort Cardio: Rate: regular rate Rhythm: regular rhythm GI: Inspection: non-distended GI Palp: Yes Soft to palpation and No Tenderness to palpation present (GI) Neuro: General: gait normal Cognition (Neuro): normal cognition Speech: normal speech Extrem: Right upper extremity: elbow/forearm normal to inspection and normal ROM; no tenderness and no swelling, wrist (splint c/d/i ) normal to inspection, tenderness of the volar wrist and swelling and Extremity exam: right hand normal to inspection, normal capillary refill, neuromotor exam normal, neurosensory exam normal, neurosensory exam abnormal and vascular exam radial pulse present 2+; no tenderness, no lacerations and no ecchymosis Psych: Mental Status: mental status grossly normal Affect: normal affect Objective Data Vital Signs Vital Signs: Vital Signs - 24 hr 12/22/23 14:00 12/22/23 15:33 12/22/23 16:30 Temperature 36.7 C Pulse Rate 112 H 87 108 H Respiratory Rate 24 H Blood Pressure 121/50 L Pulse Oximetry 94 Oxygen Delivery Oxygen Flow Rate 12/22/23 18:00 12/22/23 20:03 12/22/23 20:24 Temperature 36.7 C Pulse Rate 112 H 123 H 118 H Respiratory Rate 20 Blood Pressure 126/61 Pulse Oximetry 99 Oxygen Delivery Oxygen Flow Rate 12/22/23 20:00 12/22/23 20:00 12/22/23 21:47 Temperature Pulse Rate 108 H 108 H 106 H Respiratory Rate 20 Blood Pressure Pulse Oximetry 99 Oxygen Delivery Nasal Cannula Oxygen Flow Rate 2 12/22/23 23:34 12/22/23 23:37 12/22/23 23:37 Temperature 36.7 C Pulse Rate 108 H 98 98 Respiratory Rate 20 20 Blood Pressure 116/74 Pulse Oximetry 99 99 Oxygen Delivery Nasal Cannula Oxygen Flow Rate 2 12/23/23 02:00 12/23/23 03:30 12/23/23 04:00 Temperature 36.7 C Pulse Rate 100 101 H 105 H Respiratory Rate 20 20 Blood Pressure 122/65 Pulse Oximetry 98 98 Oxygen Delivery Nasal Cannula Oxygen Flow Rate 2 12/23/23 04:00 12/23/23 05:39 12/23/23 07:43 Temperature 36.6 C Pulse Rate 105 H 98 105 H Respiratory Rate 20 Blood Pressure 149/87 H Pulse Oximetry 100 Oxygen Delivery Oxygen Flow Rate 12/23/23 09:28 12/23/23 08:40 12/23/23 10:00 Temperature Pulse Rate 104 H 103 H Respiratory Rate Blood Pressure Pulse Oximetry 91 Oxygen Delivery Room Air Oxygen Flow Rate 12/23/23 11:29 Temperature 36.4 C Pulse Rate 108 H Respiratory Rate 28 H Blood Pressure 147/80 H Pulse Oximetry 96 Oxygen Delivery Oxygen Flow Rate Intake/Output Intake/Output: Intake & Output 12/20/23 12/21/23 12/22/23 12/23/23 23:59 23:59 23:59 23:59 Intake Total 2080 1650 1440 440 Output Total 2200 1950 1550 450 Balance -120 -300 -110 -10 Meds/Results Medications: Active Medications Generic Name Dose Route Start Last Admin Trade Name Freq PRN Reason Stop Dose Admin Acetaminophen 650 mg 12/19/23 21:15 12/22/23 20:23 Acetaminophen 325 Mg Tablet PO 650 mg Q6H PRN Administration Mild Pain (1-3) or Fever Amoxicillin/Clavulanate Potassium 1 tablet 12/22/23 21:00 12/23/23 08:34 Amoxicillin/Clavulanate K 500-125 Mg Tab PO 12/28/23 09:01 1 tablet Q12HR LIO Administration Apixaban 2.5 mg 12/19/23 21:15 12/23/23 08:34 Apixaban 2.5 Mg Tablet PO 2.5 mg Q12HR LIO Administration Cholestyramine Resin 4 gm 12/20/23 21:00 12/22/23 22:14 Cholestyramine Light 4 Gm Powd.Pack PO 4 gm HS LIO Administration Dextrose 12.5 gm 12/19/23 21:15 Dextrose 50% 25 Gm/50 Ml Syringe IV PUSH PRN PRN Hypoglycemia Protocol Furosemide 40 mg 12/21/23 09:00 12/23/23 08:50 Furosemide Inj 40 Mg/4 Ml Vial IV PUSH 40 mg BID LIO Administration Glucagon 1 mg 12/19/23 21:15 Glucagon For Inj 1 Mg Vial IM PRN PRN Hypoglycemia Protocol Glucose 15 gm 12/19/23 21:15 Glucose Oral Gel 15 Gm Of Glucse In 37.5 Gm Tube PO PRN PRN Hypoglycemia Protocol Guaifenesin 600 mg 12/20/23 21:00 12/23/23 11:11 Guaifenesin 12 Hr 600 Mg Tabcr PO 600 mg Q12HR LIO Administration Dextrose 1,000 mls @ 100 mls/hr 12/19/23 21:15 Dextrose 5% 1,000 Ml IVPB PRN PRN Hypoglycemia Protocol Insulin Aspart 3 - 6 units 12/20/23 08:00 12/23/23 13:11 Insulin Aspart (*Bkc) 100 Units/Ml SUB-Q Not Given TIDWM LIO Protocol Insulin Aspart 1 - 3 units 12/20/23 21:00 12/22/23 20:25 Insulin Aspart (*Bkc) 100 Units/Ml SUB-Q 1 units HS LIO Administration Protocol Loratadine 10 mg 12/20/23 09:00 12/23/23 08:34 Loratadine 10 Mg Tablet PO 10 mg DAILY LIO Administration Magnesium Oxide 400 mg 12/20/23 09:00 12/23/23 08:33 Magnesium Oxide 400 Mg Tablet PO 400 mg DAILY LIO Administration Metoprolol Succinate 150 mg 12/21/23 21:00 12/22/23 20:24 Metoprolol Succinate Ext Rel 50 Mg Tabcr PO 150 mg HS LIO Administration Metoprolol Tartrate 5 mg 12/20/23 13:08 Metoprolol Tartrate Inj 5 Mg/5 Ml Vial IV PUSH Q2H PRN Tachycardia Multivitamins/Minerals 1 tablet 12/20/23 09:00 12/23/23 08:33 Opti-Gen Tab PO 1 tablet BID LIO Administration * Home Med * Insulin 10 unit 12/20/23 13:00 12/23/23 08:37 Glargine U-300 Conc SUB-Q 01/19/24 12:59 10 unit [Toujeo Solostar U- DAILY LIO Administration 300 Insulin] 300 Unit/Ml Pantoprazole Sodium 40 mg 12/20/23 09:00 12/23/23 08:34 Pantoprazole 40 Mg Tablet PO 40 mg QAM LIO Administration Potassium Chloride 40 meq 12/22/23 13:00 12/23/23 13:12 Home Med* Potassium Chloride 10 Meq Er Tablet PO 40 meq TID LIO Administration Radiology Results: ITS Impressions Chest X-Ray 12/19/23 12:43 Impression: Central congestive change and minimal bibasilar pulmonary edema/atelectasis. Wrist X-Ray 12/19/23 12:43 Impression: Questionable small acute fracture the dorsal triquetrum on lateral view. Mild degenerative change at the first CMC joint. Hand X-Ray 12/19/23 12:44 Impression: Mild degenerative change, as above. Modified Barium Swallow 12/21/23 15:14 IMPRESSION: 1. Normal modified barium swallow. 2. Please refer to the speech therapy report for recommendations. Labs Labs: Laboratory Results - last 24 hr 12/22/23 12/22/23 12/22/23 13:26 15:53 19:41 Potassium 4.0 POC Capillary Glucose 187 H 295 H 1112/23/23 12/23/23 07:39 11:32 12:16 Potassium 3.7 POC Capillary Glucose 206 H 192 H
--- NOTE | 2023-12-23 13:30 | PM.DS ---
DS: Admitting Diagnosis Discharge Date 12/23/2023 Admitting Diagnosis Wrist pain DS: Discharge Diagnosis Discharge Diagnosis (1) Fracture of triquetrum: Qualifiers: Encounter type: initial encounter Fracture alignment: nondisplaced Fracture type: closed Laterality: right Qualified Code(s): S62.114A - Nondisplaced fracture of triquetrum [cuneiform] bone, right wrist, initial encounter for closed fracture Code(s): S62.113A - Displaced fracture of triquetrum [cuneiform] bone, unspecified wrist, initial encounter for closed fracture Status: Acute (2) Urinary retention: Code(s): R33.9 - Retention of urine, unspecified Status: Acute (3) Hypokalemia: Code(s): E87.6 - Hypokalemia Status: Acute (4) Atrial fibrillation: Qualifiers: Atrial fibrillation type: permanent Qualified Code(s): I48.21 - Permanent atrial fibrillation Code(s): I48.91 - Unspecified atrial fibrillation Status: Chronic (5) Congestive heart failure: Qualifiers: Heart failure chronicity: chronic Heart failure type: diastolic Qualified Code(s): I50.32 - Chronic diastolic (congestive) heart failure Code(s): I50.9 - Heart failure, unspecified Status: Chronic DS: Summary Hospital Course Hospital Course: This is a pleasant 88-year-old female with chronic atrial fibrillation on anticoagulation, heart failure with reduced ejection fraction, untreated obstructive sleep apnea, hypertension, insulin-dependent type 2 diabetes mellitus, and chronic kidney disease stage 3 who presented to the emergency department for evaluation of right wrist pain. The patient provides the following history. She has had pain on the dorsum of the right wrist. A few days ago she was trying to close the [place] when she lost her balance and fell for into the wall, hitting her left upper arm and right wrist. She did not have any pain at that time however last night began to have pain right wrist which has been pretty significant so she came in for evaluation. In the ED she was noted to be a bit short of breath with further questioning she reports that sometime last week she and her daughter had upper respiratory symptoms including a cough productive green phlegm, mild sore throat, and shortness of breath with exertion. Her symptoms have improved but she still has the cough and shortness of breath. Her appetite has still not rebounded and she occasionally has a bit nausea. On exam she has swelling of the lower legs which she states comes and goes. She denies fever, chills, sweats, sore throat, orthopnea, chest pain, pleuritic pain, palpitations, vomiting, abdominal pain, diarrhea, dysuria, and calf pain. In the ED: Vital signs on arrival include a temperature of 97.9?, blood pressure 149/107, pulse 83, respiratory rate 19, SpO2 95% on room air. Labs were significant for WBC count of 10.9, INR 2.2, potassium 5.4, BUN 26, creatinine 1.50, glucose 207, total bilirubin 2.4, proBNP 4300. She tested negative for influenza, RSV, and COVID. Right wrist x-ray showed a questionable small acute fracture of the dorsal triquetrum on lateral view. Chest x-ray showed central congestive changes and minimal bibasilar pulmonary edema/atelectasis. Right wrist was placed in a splint. She was administered a nebulizer treatment which threw her into rapid atrial fibrillation for which she has received 2 separate doses of Lopressor 5 mg IV without much improvement in her rate and she is being admitted in this setting. Patient was managed for atrial fibrillation and CHF exacerbation, cardiology was consulted and Metoprolol was adjusted to 150mg Metoprolol Succinate daily and was diuresed lasix 40mg IV bid. Eventually patient was discharged on Metoprolol 150mg bid and back to her home lasix 40mg bid po. Orthopedic evaluted and recommended conservative managed with splint for wrist fracture and will follow up outpatient Patient was also manaed for urinary retention, initially was on mena and today she failed voiding trial as Postvoid bladder scan was 400+. Patient was started on Tamsulosin and and discharged on mena. I called Dr Bonner office and she was scheduled for f/u in 2 weeks. SHe was managed for UTI, urine culture grew K pneumonia pansensitive. She completed 3 days of Abx and discharged on 2 more day of augmentin. She will follow up with PCP In 3-5 days, Cardiology, orthopedic as instructed and Urology in 2 weeks. See topical management below Assessment and Plan (1) Atrial fibrillation with rapid ventricular response: Code(s): I48.91 - Unspecified atrial fibrillation Status: Acute (2) Heart failure with reduced ejection fraction: Code(s): I50.20 - Unspecified systolic (congestive) heart failure Status: Acute (3) Right wrist pain: Code(s): M25.531 - Pain in right wrist Status: Acute (4) Hyperkalemia: Code(s): E87.5 - Hyperkalemia Status: Acute (5) Chronic kidney disease, stage 3: Code(s): N18.30 - Chronic kidney disease, stage 3 unspecified Status: Acute (6) Chronic anticoagulation: Code(s): Z79.01 - shelter (current) use of anticoagulants Status: Acute (7) Insulin dependent type 2 diabetes mellitus: Code(s): E11.9 - Type 2 diabetes mellitus without complications; Z79.4 - local [employer] (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 She also reports having a cough and congestion the past couple of days. Labs, imaging, EKG, and all reports were personally reviewed. Wrist x-ray showed possible right triquetrum fracture for which she has been placed in a splint. After receiving a nebulizer treatment she went into rapid atrial fibrillation and will be given a dose of p.o. metoprolol to see if that will help her rate. Chest x-ray shows mild pulmonary edema and central congestive changes, she is edematous, and proBNP is elevated. She will be diuresed with furosemide 40 mg IV with close monitoring of volume status, renal function, and electrolytes. Repeat potassium this evening to ensure it is improving. Her medication reconciliation states that she takes 40 mEq of potassium chloride today which will likely need to be readdressed. Kidney function is stable. Continue basal insulin. Initiate sliding scale insulin, Accu-Cheks, and hypoglycemic protocol. Her home medications will be reviewed and resumed as appropriate. Findings and treatment plan were discussed with the patient. Questions were solicited and answered to satisfaction. The patient's medical management will be taken over by the hospitalist team in a.m. #Small acute fracture the dorsal triquetrum Due to FOOSH On wrist Splint Conservative therapy per ortho F/u with ortho #Aif Fib with RVR Rate in 90-105 discharged on Metoprolol 150mg succinate daily per card On apixaban 2.5mg PO BID F?u with cardiology as instructed # Hyperkalemia, resolved now Hypokalemic On home K 40 meq TID daily now on home regimen monitor K 3.7 continue home regimen monitor CHF Exacerbation Chest x-ray shows central congestive changes and minimal bibasilar pulmonary edema/atelectasis No evidence of pneumonia s/p IV lasix 40mg bid, discharged on home PO lasix 40mg bid f/u with Cardiology Suspected aspiration, ruled out Patient was noted to be coughing during bedside swallow eval S/p MBS and no aspiration noted patient on regular diet Urinary retention Mena removed this morning however patient failed voiding trial with residual postvoid of 400+ started on tamsulosin and mena replaced Called urology office and patient will be seen in follow up in 2 weeks Patient and daughter counseled to follow up with urology UTI Urine culture positive for K penumonia pansensitive Discharged on 2 more days of Augmentin Continue other home meds DVT prophylaxis on Eliquis Patient is going home with daughter. Time Spent with Patient Time attestation: Total time spent providing and/or coordinating discharge services: DS: Data Data Completed and Pending Labs on day of discharge: Labs from last 24 hours 12/23/23 12/23/23 12/23/23 12:16 11:32 07:39 Potassium 3.7 POC Capillary Glucose 192 H 206 H 12/22/23 12/22/23 12/22/23 19:41 15:53 13:26 Potassium 4.0 POC Capillary Glucose 295 H 187 H Discharge Plan Discharge Attending physician on discharge: Leonid Osborne Consulting providers: Noreen Herring; Kyle Shaikh; Navid Bonner Discharging Clinician: Leonid Osborne Anticipated Discharge Date/Time: 12/23/23 13:25 Patient Disposition: Home, Self-Care Activity: as tolerated Diet: as tolerated Patient Instructions: Antibiotic Form Stand Alone Forms: General Discharge Information Follow-up/Referrals: Gabriel Jurado MD [Primary Care Provider] - (F/u with PCP in 3-5 days ) Kyle Shaikh MD [Physician] - (F/u with orthopedics as instructed ) Noreen Herring, [employer] [Advanced Practice Nurse] - (F/u with cardiology as instructed ) Navid Bonner MD [Physician] - (F/u with Dr Bonner within 2 weeks ) Discharge Medications: New metoprolol succinate 50 mg Tablet Extended Release 24 Hr 150 mg PO HS 30 Days Qty: 90 1RF amoxicillin-pot clavulanate [Augmentin] 500-125 mg Tablet 1 tablet PO Q12HR 2 Days Qty: 4 0RF tamsulosin 0.4 mg capsule 0.4 mg PO HS Qty: 14 0RF Continued Eliquis 2.5 mg tablet 2.5 mg PO BID loratadine 10 mg tablet 10 mg PO DAILY Josue ZoniaoStar U-300 Insulin 300 unit/mL (1.5 mL) insulin pen 10 unit SUBCUT DAILY Qty: 6 3RF furosemide 40 mg Tablet 40 mg PO BID Qty: 60 0RF potassium chloride [K-Tab] 10 mEq Tablet Extended Release 40 meq PO TID Qty: 30 0RF Rx Instructions: 4 tabs equals 40 mEq. Pt must take the 10 mEq tabs. magnesium oxide 400 mg magnesium Tablet 400 mg PO DAILY PreserVision AREDS-2 [id number] is-viin-ke-mg Capsule 1 tablet PO BID (DME) FreeStyle Aashish 14 Day Sensor Kit MISCELLANEOUS (DME) FreeStyle Aashish 14 Day Wolverine Misc MISCELLANEOUS cholestyramine-aspartame [Cholestyramine Light] 4 gram powder in packet 4 g PO HS Rx Instructions: administer w/meal; avoid other meds within 1hr before or 4-6hr after dose insulin lispro 100 unit/mL insulin pen See Rx Instructions .ROUTE .COMPLEX Qty: 15 5RF Dose Instruction: INJECT SUBCUTANEOUSLY PER SLIDING SCALE DIRECTED. MAX OF 40 UNITS PER DAY Rx Instructions: INJECT SUBCUTANEOUSLY PER SLIDING SCALE DIRECTED. MAX OF 40 UNITS PER DAY (DME) pen needle, diabetic 31 gauge x 5/16 needle See Rx Instructions .ROUTE .COMPLEX Qty: 400 3RF Dose Instruction: USE WITH INSULIN INJECTIONS BEFORE MEAL(S) AND EVERY DAY AT BEDTIME. Rx Instructions: USE WITH INSULIN INJECTIONS BEFORE MEAL(S) AND EVERY DAY AT BEDTIME. pantoprazole 40 mg tablet,delayed release (DR/EC) 40 mg PO QAM Qty: 90 2RF Discontinued metoprolol succinate 100 mg Tablet Extended Release 24 Hr 100 mg PO HS Date of admission: 12/20/23 14:08 Primary Care Provider: Gabriel Jurado Admitting Provider: Enmanuel Teixeira Attending physician on admission: Enmanuel Teixeira Condition: Serious
[2023-12-23] MEDS: ACETAMINOPHEN 325 MG TABLET 650 MG PO (14:29)
--- NOTE | 2023-12-23 15:20 | PC.NURSE ---
1300- pt unable to void qs amt- urinated X 2 @ [id number] she feels like she has to urinate -bladder scanned @ 580cc- order to reinsert mena for retention; new orders to reinsert mena - pt to go home with mena and followup with Dr. Bonner 1400- inserted #[id number] mena- 650cc yellow urine
--- NOTE | 2023-12-23 16:44 | P.CONUR_ITS ---
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 * Agree with plans for discharge home with an indwelling catheter on tamsulosin. I will arrange for a voiding trial next week. Urology Consult Note HPI Date Seen: 12/23/23 Requesting Physician: Enmanuel Teixeira MD Primary Care Provider: Gabriel Jurado MD Consult Narrative Narrative: Radha Salmeron is a 88 year old female Previously unknown to our practice who developed urinary retention after presentation emergency department with wrist pain and found to have a small wrist fracture. Orthopedic consultation led to the decision for conservative management. During the course of this she was do attempting to void in bed and developed urinary retention. I saw her as she was preparing to leave with an indwelling catheter. She has been prescribed Flomax. She denies an antecedent history of urinary retention and has no sense of difficulty emptying. Review of Systems Review of Systems: All systems reviewed & are unremarkable except as noted in HPI and below PMFSH Past Medical History Medical History (Updated 12/20/23 @ 16:09 by DEBORAH Metz) Anxiety Chronic anticoagulation Chronic atrial fibrillation Chronic kidney disease, stage 3 Colon cancer Deep venous thrombosis Fracture of triquetrum Gastroesophageal reflux disease Heart failure with reduced ejection fraction echocardiogram in 11/2021 showed moderate concentric LVH, moderate global l eft ventricular systolic dysfunction with an estimated ejection fraction of 30 to 35%, severe biatrial enlargement, and mild pulmonary hypertension Hypertension Insulin dependent type 2 diabetes mellitus Iron deficiency anemia Macular degeneration Peripheral neuropathy Primary stress urinary incontinence Severe obstructive sleep apnea intolerant to CPAP Transient ischemic attack Venous stasis ulcers Surgical History Surgical History History of bilateral cataract extraction History of cholecystectomy History of hysterectomy History of right hemicolectomy (07/2019) right colon cancer Family History Family History Mother Family history of respiratory disorder, Onset Age: 21 Other Family history of cardiovascular disease Social History Social History (Reviewed 12/20/23 @ 16:06 by YENNIFER Metz Social History: Healthcare power of application specialist: Katelyn Bird, daughter. Code status: Do not resuscitate. Smoking status: Never smoker Second hand tobacco smoke exposure: No Alcohol intake: never Substance use: never Substance use type: does not use Do You Feel Safe in your Home?: Yes Lack of Transportation: No Lack of Food: Never True Current Housing: I Have Housing Concerned About Future Housing: No Difficulty Paying Gas/Electric Bills: No Difficulty Paying for Meds: No Currently Unemployed: No Education: High School Diploma/GED Difficulty w/ Childcare or Family Care: No Additional living arrangements comments: . Lives in independent living at [place]. Ambulates with a walker. Spiritual care concerns: No Agree to blood products: Yes Meds Home Medications and Allergies Home Medications Medication Instructions Recorded Confirmed Type loratadine 10 mg tablet 10 mg PO DAILY 01/11/19 12/19/23 History furosemide 40 mg tablet 40 mg PO BID #60 tabs 02/26/19 12/19/23 Rx potassium chloride 10 mEq 40 meq PO TID #30 tabs 02/26/19 12/19/23 Rx tablet,extended release (K-Tab) magnesium oxide 400 mg PO DAILY 03/14/19 12/19/23 History vit C 250 mg-vit E 90 mg-zinc 40 1 tablet PO BID 03/18/19 12/19/23 History mg-copper 1 [id number] capsule (PreserVision AREDS-2) apixaban 2.5 mg tablet (Eliquis) 2.5 mg PO BID 08/28/19 12/19/23 History insulin glargine U-300 conc 300 10 unit (0.0333 mL) subcut DAILY 03/25/23 12/19/23 Rx unit/mL (1.5 mL) subcutaneous pen #6 mL (Toujeo SoloStar U-300 Insulin) insulin lispro 100 unit/mL See Rx Instructions .Route 08/04/23 12/19/23 Rx subcutaneous pen .COMPLEX #15 mL pen needle, diabetic 31 gauge x #400 ea 11/04/23 12/19/23 Rx 5/16 pantoprazole 40 mg tablet,delayed 40 mg PO QAM #90 tabs 11/29/23 12/19/23 Rx release cholestyramine-aspartame 4 gram 4 g PO HS 12/19/23 12/19/23 History oral powder for susp in a packet (Cholestyramine Light) flash glucose scanning reader 12/19/23 12/19/23 History (FreeStyle Aashish 14 Day [place]) flash glucose sensor (FreeStyle 12/19/23 12/19/23 History Aashish 14 Day Sensor kit) amoxicillin 500 mg-potassium 1 tablet PO Q12HR 2 days #4 tabs 12/23/23 Rx clavulanate 125 mg tablet (Augmentin) metoprolol succinate 50 mg 150 mg PO HS 30 days #90 tabs 12/23/23 Rx tablet,extended release 24 hr tamsulosin 0.4 mg capsule 0.4 mg PO HS #14 caps 12/23/23 Rx Allergies Allergy/AdvReac Type Severity Reaction Status Date / Time adhesive tape Allergy Unknown Rash Verified 12/19/23 11:14 cetirizine Allergy Unknown Swelling Verified 12/19/23 11:14 of Lip/Tongue/Throat diazepam Allergy Unknown Cough Verified 12/19/23 11:14 gabapentin Allergy Unknown Confusion Verified 12/19/23 11:14 levetiracetam Allergy Unknown Confusion Verified 12/19/23 11:14 levofloxacin Allergy Unknown Confusion Verified 12/19/23 11:14 pregabalin Allergy Unknown Confusion Verified 12/19/23 11:14 zolpidem Allergy Unknown Hallucinati Verified 12/19/23 11:14 ng sleep aids - all AdvReac Severe Hallucinati Uncoded 12/19/23 11:14 ng Vital Signs Vital Signs - 24 hr 12/22/23 18:00 12/22/23 20:03 12/22/23 20:24 Temperature 98.0 F Pulse Rate 112 H 123 H 118 H Respiratory Rate 20 Blood Pressure 126/61 Pulse Oximetry 99 Oxygen Delivery Oxygen Flow Rate 12/22/23 20:00 12/22/23 20:00 12/22/23 21:47 Temperature Pulse Rate 108 H 108 H 106 H Respiratory Rate 20 Blood Pressure Pulse Oximetry 99 Oxygen Delivery Nasal Cannula Oxygen Flow Rate 2 12/22/23 23:34 12/22/23 23:37 12/22/23 23:37 Temperature 98.1 F Pulse Rate 108 H 98 98 Respiratory Rate 20 20 Blood Pressure 116/74 Pulse Oximetry 99 99 Oxygen Delivery Nasal Cannula Oxygen Flow Rate 2 12/23/23 02:00 12/23/23 03:30 12/23/23 04:00 Temperature 98.0 F Pulse Rate 100 101 H 105 H Respiratory Rate 20 20 Blood Pressure 122/65 Pulse Oximetry 98 98 Oxygen Delivery Nasal Cannula Oxygen Flow Rate 2 12/23/23 04:00 12/23/23 05:39 12/23/23 07:43 Temperature 97.9 F Pulse Rate 105 H 98 105 H Respiratory Rate 20 Blood Pressure 149/87 H Pulse Oximetry 100 Oxygen Delivery Oxygen Flow Rate 12/23/23 09:28 12/23/23 08:40 12/23/23 10:00 Temperature Pulse Rate 104 H 103 H Respiratory Rate Blood Pressure Pulse Oximetry 91 Oxygen Delivery Room Air Oxygen Flow Rate 12/23/23 11:29 12/23/23 12:30 12/23/23 14:00 Temperature 97.6 F Pulse Rate 108 H 101 H 101 H Respiratory Rate 28 H Blood Pressure 147/80 H Pulse Oximetry 96 Oxygen Delivery Oxygen Flow Rate Exam Const: General: no acute distress Resp: Effort & Inspection: normal respiratory effort GI: Inspection: non-distended GI Palp: No abdominal tenderness and No Guarding due to palpation present (GI) Auscultation: normal bowel sounds Results Labs 12/22/23 04:44 12/23/23 12:16 Labs: BMP 12/23/23 12:16 Potassium 3.7
== END 2023-12-23 16:17 | disposition home or self-care (01) | DRG 291 ==
LOC: ANHED 11:45 → ANHIMU 16:57
PROVIDERS: Internal Medicine; Physician Assistant; Admitting Provider General Practice; Emergency Provider Emergency Medicine; PCP Family Medicine; Visit Provider Internal Medicine
DX: I13.0 Hypertensive heart and chronic kidney disease with heart failure and stage 1 through stage 4 chronic kidney disease, or unspecified chronic kidney disease (principal); I50.23 Acute on chronic systolic (congestive) heart failure; I48.20 Chronic atrial fibrillation, unspecified; N39.0 Urinary tract infection, site not specified; S62.111A Displaced fracture of triquetrum [cuneiform] bone, right wrist, initial encounter for closed fracture; B96.1 Klebsiella pneumoniae [K. pneumoniae] as the cause of diseases classified elsewhere; Z20.822 Contact with and (suspected) exposure to COVID-19; E11.22 Type 2 diabetes mellitus with diabetic chronic kidney disease; N18.30 Chronic kidney disease, stage 3 unspecified; K21.9 Gastro-esophageal reflux disease without esophagitis; E11.42 Type 2 diabetes mellitus with diabetic polyneuropathy; E87.5 Hyperkalemia; H35.30 Unspecified macular degeneration; N39.3 Stress incontinence (female) (male); E87.6 Hypokalemia; G47.33 Obstructive sleep apnea (adult) (pediatric); W22.09XA Striking against other stationary object, initial encounter; R33.9 Retention of urine, unspecified; Z85.038 Personal history of other malignant neoplasm of large intestine; Z86.718 Personal history of other venous thrombosis and embolism; Z86.73 Personal history of transient ischemic attack (TIA), and cerebral infarction without residual deficits; Z98.42 Cataract extraction status, left eye; Z98.41 Cataract extraction status, right eye; Z90.49 Acquired absence of other specified parts of digestive tract; Z90.710 Acquired absence of both cervix and uterus; Z79.01 Long term (current) use of anticoagulants; Z79.4 Long term (current) use of insulin
CPT/HCPCS: 36415; 71045; 73110; 73130; 80053; 81001; 82248; 82948; 83735; 83880; 84132; 84443; 85025; 85027; 85610; 85730; 87086; 87186; 87637; 92610; 92611; 93005; 94640; 96374; 96375; 96376; 97110; 97116; 97161; 97165; 97530; 97535; 99285; A4565; A9270; G0378; J0696; J1815; J1940; J3475; J3480; J7040

== ENCOUNTER 2024-02-29 16:13 | Inpatient (IN) | payer MEDICARE, OTHER, SELFPAY ==
[2024-02-29] VITALS (11 sets, daily range): BP systolic 93–109; BP diastolic 54–68; PULSE 81–109; RESP 18–24; TEMP 36.4–37.1; O2SAT 96–100; BMI 35.7
--- NOTE | ~2024-02-29 | XR_ITS ---
CHEST RADIOGRAPH CLINICAL HISTORY: Weakness . COMPARISON: 12/19/2023 TECHNIQUE: Single portable view of the chest. FINDINGS The cardiomediastinal silhouette is enlarged, unchanged. Hiatal hernia also noted. Left-sided pleural effusion, unchanged. Increased interstitial markings are identified bilaterally, findings suggesting mild pulmonary vascul ar congestion. The remainder of the lungs are otherwise clear. IMPRESSION: Mild pulmonary vascular congestion, with a left-sided pleural effusion. No focal infiltrate. Reviewed, dictated and finalized at location A. K THREADER
--- NOTE | ~2024-02-29 | CT_ITS ---
CLINICAL INDICATION: Abdominal pain. Nausea, vomiting and diarrhea COMPARISON: Reference is made to a PET/CT dated 04/06/2019. TECHNIQUE: Multiple contiguous axial images of the abdomen and pelvis were performed without the admi nistration of intravenous contrast The dose-length product (DLP) was 1552.23 mGy-cm. Automated exposure control and iterative reconstruction technique were employed. FINDINGS/OBSERVATIONS: Visualized lower thorax: Trace right-sided pleural effusion with adjacent compressive atelectasis. The heart is markedly enlarged, without pericardial effusion. Small hiatal hernia is present. Liver: The unenhanced liver is heterogeneous in attenuation, and is not enlarged measuring 17 cm in longitud inal dimension. Gallbladder and biliary system: The gallbladder is surgically absent. Pancreas: Limited evaluation of the pancreas secondary to the lack of intravenous contrast. Spleen: Punctate calcifications identified within the splenic parenchyma, suggesting prior granulomatous dise ase. The remainder of the spleen demonstrates otherwise homogeneous attenuation and is not enlarged measur ing 4 cm in longitudinal dimension. Kidneys: The bilateral kidneys are without hydronephrosis or renal calculi. Redemonstration of a large focus o f fluid attenuation, possibly originating within the right kidney, unchanged from prior. Adrenal glands: Unremarkable. Gastrointestinal tract: Mural thickening with surrounding inflammatory change and multiple diverticula within the colon, spec ifically in the rectosigmoid colon with infiltration of the presacral fat, possibly representing tia y/acute diverticulitis. Postoperative change within the descending colon Appendix: The appendix is not visualized. Vasculature: Densely calcified atherosclerotic disease. No aneurysmal dilatation is appreciated. The inferior vena cava is markedly distended along its course suggesting right heart failure. Lymph nodes: Limited evaluation without intravenous contrast. Pelvic structures: The bladder is markedly distended, and otherwise unremarkable. The uterus is anteverted and anteflexed, and contains multiple calcifications consistent with prior f ibroid disease. Body wall and musculoskeletal: Anterior wedge compression fracture of L1. No lytic or blastic lesions identified. Marked anasarca IMPRESSION: Findings within the rectosigmoid colon which may represent early/acute diverticulitis. Otherwise, no acute intra-abdominal pathology. Innumerable nonacute findings, as detailed above. Reviewed, dictated and finalized at location A. GE CONTROL ATTENDANT IMPRESSION: Findings within the rectosigmoid colon which may represent early/acute divertic ulitis. Otherwise, no acute intra-abdominal pathology. Innumerable nonacute findings, as detailed above.
--- NOTE | 2024-02-29 16:33 | ED.GENADULT ---
HPI - General Adult General Chief complaint: Weakness Stated complaint: WEAKNESS Time Seen by Provider: 02/29/24 16:15 History of Present Illness HPI narrative: Patient is a 88-year-old female who presents emergency department with chief complaint of nausea vomiting diarrhea patient reports that she has had multiple bouts of nausea vomiting reports she has that for [facility] and has been less active the patient has extremely dry mucous membranes per the staff but does respond to aggressive verbal stimuli. Related Data Home Medications ?Medication ?Instructions ?Recorded ?Confirmed ?Last Taken ?Type loratadine 10 mg tablet 10 mg PO DAILY 01/11/19 12/31/23 12/19/23 History magnesium oxide 400 mg PO DAILY 03/14/19 12/31/23 12/19/23 History vit C 250 mg-vit E 90 mg-zinc 40 1 tablet PO BID 03/18/19 12/31/23 12/19/23 History mg-copper 1 [id number] capsule (PreserVision AREDS-2) apixaban 2.5 mg tablet (Eliquis) 2.5 mg PO BID 08/28/19 12/31/23 12/19/23 History cholestyramine-aspartame 4 gram 4 g PO HS 12/19/23 12/31/23 12/18/23 History oral powder for susp in a packet (Cholestyramine Light) flash glucose scanning reader 12/19/23 12/31/23 Unknown History (FreeStyle Aashish 14 Day [place]) flash glucose sensor (FreeStyle 12/19/23 12/31/23 Unknown History Aashish 14 Day Sensor kit) Allergies Allergy/AdvReac Type Severity Reaction Status Date / Time adhesive tape Allergy Unknown Rash Verified 02/25/24 11:32 cetirizine Allergy Unknown Swelling Verified 02/25/24 11:32 of Lip/Tongue/Throat diazepam Allergy Unknown Cough Verified 02/25/24 11:32 gabapentin Allergy Unknown Confusion Verified 02/25/24 11:32 levetiracetam Allergy Unknown Confusion Verified 02/25/24 11:32 levofloxacin Allergy Unknown Confusion Verified 02/25/24 11:32 pregabalin Allergy Unknown Confusion Verified 02/25/24 11:32 zolpidem Allergy Unknown Hallucinati Verified 02/25/24 11:32 ng sleep aids - all AdvReac Severe Hallucinati Uncoded 02/25/24 11:32 ng Review of Systems Review of Systems: A 10 system review of systems was completed on the patient and is negative except for what is stated in the HPI. Nursing and ancillary documentation was reviewed. [facility] Past Medical History Medical History Right wrist pain Fracture of triquetrum Chronic kidney disease, stage 3 Heart failure with reduced ejection fraction echocardiogram in 11/2021 showed moderate concentric LVH, moderate global left ventricular systolic dysfunction with an estimated ejection fraction of 30 to 35%, severe biatrial enlargement, and mild pulmonary hypertension Insulin dependent type 2 diabetes mellitus Primary stress urinary incontinence Colon cancer Transient ischemic attack Iron deficiency anemia Gastroesophageal reflux disease Hypertension Deep venous thrombosis Venous stasis ulcers Anxiety Peripheral neuropathy Macular degeneration Chronic atrial fibrillation Chronic anticoagulation Severe obstructive sleep apnea intolerant to CPAP Surgical History Surgical History History of right hemicolectomy (07/2019) right colon cancer History of bilateral cataract extraction History of hysterectomy History of cholecystectomy Family History Family History Mother Family history of respiratory disorder, Onset Age: 21 Other Family history of cardiovascular disease Social History Social History Social History: Healthcare power of mergers and acquisitions attorney: Katelyn Bird, daughter. Code status: Do not resuscitate. Smoking status: Never smoker Second hand tobacco smoke exposure: No Alcohol intake: never Substance use: never Substance use type: does not use Do You Feel Safe in your Home?: Yes Lack of Transportation: No Lack of Food: Never True Current Housing: I Have Housing Concerned About Future Housing: No Difficulty Paying Gas/Electric Bills: No Difficulty Paying for Meds: No Currently Unemployed: No Education: High School Diploma/GED Difficulty w/ Childcare or Family Care: No Additional living arrangements comments: . Lives in independent living at [place]. Ambulates with a walker. Spiritual care concerns: No Agree to blood products: Yes Exam Narrative: GENERAL: Well-appearing, well-nourished, and in no acute distress. HEAD: Normocephalic, atraumatic. EYES: PERRLA and EOMI. ENT: Nares clear, no rhinorrhea or epistaxis. Mucous membranes dry. NECK: Supple. CHEST: Clear to auscultation. No respiratory distress. HEART: Regular rate and rhythm. No murmur heard. Normal peripheral pulses. ABDOMEN: Soft, diffuse mild tenderness, nondistended, normal active bowel sounds. EXTREMITIES: Normal range of motion. No edema. SKIN: Warm, dry, no rash. NEURO: No focal deficits. Alert and oriented x3. PSYCH: Normal mood and affect. Course Vital Signs Vital signs: Vital Signs Temperature 37.1 C 02/29/24 16:19 Pulse Rate 109 H 02/29/24 16:19 Respiratory Rate 20 02/29/24 16:19 Blood Pressure 100/68 02/29/24 16:19 Pulse Oximetry 100 02/29/24 16:19 Oxygen Delivery Nasal Cannula 02/29/24 16:19 Oxygen Flow Rate 2 02/29/24 16:19 Temperature 37.1 C 02/29/24 16:19 Pulse Rate 102 H 02/29/24 16:35 Respiratory Rate 20 02/29/24 16:19 Blood Pressure 100/68 02/29/24 16:19 Pulse Oximetry 100 02/29/24 16:40 Oxygen Delivery Nasal Cannula 02/29/24 16:40 Oxygen Flow Rate 2 02/29/24 16:40 Medical Decision Making [facility] Narrative Medical decision making narrative: Differential diagnosis includes intra-abdominal infection, gastroenteritis, dehydration Patient received L of normal saline boluses in the emergency department Laboratory studies showed a white count of 6.2 electrolytes showed a sodium 134 potassium was 3.2 BUN was 49 and creatinine is 1.64 magnesium was 1.5 bilirubin was 1.9 procalcitonin 0.5 COVID flu RSV are negative urinalysis is currently pending Chest x-ray showed Mild pulmonary vascular congestion, with a left-sided pleural effusion. No focal infiltrate. Scan of the abdomen pelvis showed Findings within the rectosigmoid colon which may represent early/acute diverticulitis. Otherwise, no acute intra-abdominal pathology. Innumerable nonacute findings, as detailed above. The patient was started on Zosyn Vital Signs Vital Signs: Vital Signs Temperature 37.1 C 02/29/24 16:19 Pulse Rate 109 H 02/29/24 16:19 Respiratory Rate 20 02/29/24 16:19 Blood Pressure 100/68 02/29/24 16:19 Pulse Oximetry 100 02/29/24 16:19 Oxygen Delivery Nasal Cannula 02/29/24 16:19 Oxygen Flow Rate 2 02/29/24 16:19 Temperature 37.1 C 02/29/24 16:19 Pulse Rate 102 H 02/29/24 16:35 Respiratory Rate 20 02/29/24 16:19 Blood Pressure 100/68 02/29/24 16:19 Pulse Oximetry 100 02/29/24 16:40 Oxygen Delivery Nasal Cannula 02/29/24 16:40 Oxygen Flow Rate 2 02/29/24 16:40 Lab Data 02/29/24 16:32 02/29/24 16:32 Labs: Lab Results 02/29/24 02/29/24 02/29/24 Range/Units 16:32 16:33 16:34 WBC 6.2 (4.5-10.0) K/mm3 RBC 4.16 L (4.2-5.4) M/mm3 Hgb 10.9 L (12.0-15.0) g/dL Hct 34.3 L (37.0-47.0) % MCV 82.5 (80-100) fl MCH 26.2 (26-34) pg MCHC 31.8 L (32-36) g/dl RDW 17.4 H (11.5-14.5) % Plt Count 161 (150-375) k/mm3 MPV 11.0 H (7.4-10.4) fl Immature Gran % (Auto) 0.5 (0-0.5) % Neut % (Auto) 61.8 (45.5-73.1) % Lymph % (Auto) 16.7 L (18.3-44.2) % [place] % (Auto) 17.6 H (2.6-8.5) % Eos % (Auto) 3.1 (0-4.4) % Baso % (Auto) 0.3 (0.2-1.2) % Lymph # (Auto) 1.04 (0.9-3.2) K/mm3 [place] # (Auto) 1.1 H (0.1-0.6) K/mm3 Eos # (Auto) 0.2 (0-0.3) K/mm3 Baso # (Auto) 0.0 (0.0-0.1) K/mm3 Abs Immat Gran (auto) 0.03 (0.00-0.031) K/mm3 Absolute Neuts (auto) 3.8 (1.3-6.7) K/mm3 Absolute Nucleated RBC 0.000 (0.0-0.012) K/mm3 Nucleated RBC % 0.0 (0.0-0.2) % PT 28.4 H (11.1-14.7) Seconds INR 2.6 APTT 47.3 H (22.3-36.8) Seconds Sodium 134 L (137-145) mmol/L Potassium 3.2 L (3.4-5.0) mmol/L Chloride 102 (98-107) mmol/L Carbon Dioxide 22 (22-30) mmol/L Anion Gap 10 (4-12) mmol/L BUN 49 H D (7-17) mg/dL Creatinine 1.64 H (0.7-1.0) mg/dL Estim Creat Clear Calc 23 ml/min Estimated GFR 29 L (59 - ) Glucose 77 (65-110) mg/dL Lactic Acid 1.3 (0.7-2.0) mmol/L Calcium 7.7 L (8.4-10.2) mg/dL Magnesium 1.5 L (1.6-2.3) mg/dL Total Bilirubin 1.9 H (0.2-1.3) mg/dL AST 18 (14-36) U/L ALT 10 (6-35) U/L Alkaline Phosphatase 150 H (38-126) U/L Troponin I < 0.012 Pending (0.000-0.034) ng/mL Total Protein 6.0 L (6.3-8.2) g/dL Albumin 2.7 L (3.5-5.1) g/dL Lipase 13 L (23-300) U/L Procalcitonin 0.5 ng/mL Influenza A (RT-PCR) Negative (Negative) Influenza B (RT-PCR) Negative (Negative) RSV (RT-PCR) Negative (Negative) SARS-CoV-2 RNA (RT-PCR) Negative (Negative) Discharge Plan Discharge Clinical Impression: Nausea and vomiting, Diverticulitis Patient Disposition: Still a Patient Condition: Stable Patient Language: Icelandic Prescriptions: No Action Eliquis 2.5 mg tablet 2.5 mg PO BID loratadine 10 mg tablet 10 mg PO DAILY Josue Pinedo U-300 Insulin 300 unit/mL (1.5 mL) insulin pen 10 unit SUBCUT DAILY Qty: 6 3RF furosemide 40 mg Tablet 40 mg PO BID Qty: 60 0RF potassium chloride [K-Tab] 10 mEq Tablet Extended Release 40 meq PO TID Qty: 30 0RF Rx Instructions: 4 tabs equals 40 mEq. Pt must take the 10 mEq tabs. magnesium oxide 400 mg magnesium Tablet 400 mg PO DAILY PreserVision AREDS-2 [id number]-khkd-dx-mg Capsule 1 tablet PO BID (DME) FreeStyle Aashish 14 Day Sensor Kit MISCELLANEOUS (DME) FreeStyle Aashish 14 Day [place] Misc MISCELLANEOUS cholestyramine-aspartame [Cholestyramine Light] 4 gram powder in packet 4 g PO HS Rx Instructions: administer w/meal; avoid other meds within 1hr before or 4-6hr after dose metoprolol succinate 50 mg Tablet Extended Release 24 Hr 150 mg PO HS 30 Days Qty: 90 1RF insulin lispro 100 unit/mL insulin pen See Rx Instructions .ROUTE .COMPLEX Qty: 15 5RF Dose Instruction: INJECT SUBCUTANEOUSLY PER SLIDING SCALE DIRECTED. MAX OF 40 UNITS PER DAY Rx Instructions: INJECT SUBCUTANEOUSLY PER SLIDING SCALE DIRECTED. MAX OF 40 UNITS PER DAY (DME) pen needle, diabetic 31 gauge x 5/16 needle See Rx Instructions .ROUTE .COMPLEX Qty: 400 3RF Dose Instruction: USE WITH INSULIN INJECTIONS BEFORE MEAL(S) AND EVERY DAY AT BEDTIME. Rx Instructions: USE WITH INSULIN INJECTIONS BEFORE MEAL(S) AND EVERY DAY AT BEDTIME. pantoprazole 40 mg tablet,delayed release (DR/EC) 40 mg PO QAM Qty: 90 2RF Follow-up/Referrals: UNKNOWN,DOCTOR [Primary Care Provider] - Time of Disposition: 18:37
[2024-02-29] MEDS: ONDANSETRON INJ 4 MG/2 ML VIAL IV PUSH (16:34)
[2024-02-29] MEDS: SODIUM CHLORIDE 0.9% IV 1,000 ML 999 ML IV CONT (16:34)
[2024-02-29 16:41] LABS: Basophils Percent Auto 0.3 % (0.2-1.2); Eosinophils Absolute Auto 0.2 K/mm3 (0-0.3); Eosinophils Percent Auto 3.1 % (0-4.4); Hematocrit 34.3 % (37.0-47.0); Hemoglobin 10.9 g/dL (12.0-15.0); Immature Granulocyte Absolute 0.03 K/mm3 (0.00-0.031); Immature Granulocyte Percent A 0.5 % (0-0.5); Lymphocytes Absolute Auto 1.04 K/mm3 (0.9-3.2); Lymphocytes Percent Auto 16.7 % (18.3-44.2); Mean Corpuscular HGB Conc 31.8 g/dl (32-36); Mean Corpuscular Hemoglobin 26.2 pg (26-34); Mean Corpuscular Volume 82.5 fl (80-100); Monocytes Absolute Auto 1.1 K/mm3 (0.1-0.6); Monocytes Percent Auto 17.6 % (2.6-8.5); Neutrophils Absolute Auto 3.8 K/mm3 (1.3-6.7); Neutrophils Percent Auto 61.8 % (45.5-73.1); Platelet Count Result 161 k/mm3 (150-375); Red Blood Count 4.16 M/mm3 (4.2-5.4); Red Cell Distribution Width 17.4 % (11.5-14.5); White Blood Count 6.2 K/mm3 (4.5-10.0)
[2024-02-29 16:52] LABS: INR 2.6; Partial Thromboplastin Time 47.3 Seconds (22.3-36.8); Prothrombin Time 28.4 Seconds (11.1-14.7)
[2024-02-29 17:02] LABS: Lactic Acid Reflex 1.3 mmol/L (0.7-2.0)
[2024-02-29 17:04] LABS: Alanine Aminotransferase 10 U/L (6-35); Albumin Level 2.7 g/dL (3.5-5.1); Alkaline Phosphatase 150 U/L (38-126); Anion Gap 10 mmol/L (4-12); Aspartate Amino Transferase 18 U/L (14-36); Bilirubin,Total 1.9 mg/dL (0.2-1.3); Blood Urea Nitrogen 49 mg/dL (7-17); Calcium 7.7 mg/dL (8.4-10.2); Carbon Dioxide 22 mmol/L (22-30); Chloride 102 mmol/L (98-107); Estimated CRCL calculation 23 ml/min; Estimated Glomerular Filt Rate 29; Glucose 77 mg/dL (65-110); Lipase 13 U/L (23-300); Magnesium 1.5 mg/dL (1.6-2.3); Potassium 3.2 mmol/L (3.4-5.0); Sodium 134 mmol/L (137-145)
[2024-02-29 17:17] LABS: Troponin I < 0.012 ng/mL (0.000-0.034)
[2024-02-29 17:19] LABS: Influenza A QL RT-PCR Negative (Negative); Influenza B QL RT-PCR Negative (Negative); RSV RNA, RT-PCR Negative (Negative); SARS-CoV-2 RNA PCR Negative (Negative)
[2024-02-29 17:23] LABS: Procalcitonin 0.5 ng/mL
[2024-02-29] MEDS: MAGNESIUM SULF 1 GM/D5W 100 ML 1 GM/100 ML BAG IVPB (17:56)
--- NOTE | 2024-02-29 18:42 | PC.NURSE ---
1829---straight cath down per protocol-groin folds/umer area very excoriated. Evidence of cream present. Pericare done/new diaper applied
[2024-02-29 18:55] LABS: Add Urine Microscopic? YES; Appearance Urine Clear (Clear); Bacteria Urine 4+ /hpf; Bilirubin Urine Negative (Negative); Blood Urine Negative (Negative); Color Urine Yellow (Yellow); Glucose Urine UA Negative (Negative); Ketones Urine Negative (Negative); Leukocyte Esterase Ur Trace LEU/UL (Negative); Nitrate Urine Positive (Negative); Non Pathogenic Casts 0-2; Protein Urine Negative (Negative); RBC Urine 0-2 /hpf (0-2); Specific Grav Ur 1.008 (1.001-1.035); Squamous Epithelial Cell Urine None Seen /hpf (Few); Urobilinogen Urine 0.2 mg/dL (<2.0); WBC Urine 0-5 /hpf (0-3)
[2024-02-29] MEDS: ALBUMIN HUMAN 25% 25 GM/100 ML 100 ML IVPB ×2 (19:05→23:42)
[2024-02-29] MEDS: SODIUM CHLORIDE 0.9% IV 500 ML 100 ML IV CONT (19:17)
--- NOTE | 2024-02-29 19:48 | PC.NURSE ---
Patient to CT
[2024-02-29] MEDS: ACETAMINOPHEN 500 MG TABLET 1000 MG PO (20:23)
[2024-02-29 22:31] LABS: Glucose Point of Care 71 mg/dl (65-105)
[2024-02-29] MEDS: metroNIDAZOLE 500 MG/ISO 100ML 500 MG/100 ML BAG 100 MG IVPB (22:35)
[2024-02-29] MEDS: APIXABAN 2.5 MG TABLET PO (23:37)
[2024-02-29] MEDS: METOPROLOL SUCCINATE EXT REL 100 MG TABCR PO (23:37)
[2024-03-01] VITALS (10 sets, daily range): BP systolic 94–120; BP diastolic 54–65; PULSE 75–97; RESP 16–18; TEMP 36.3–36.6; O2SAT 95–100; BMI 35.7
[2024-03-01] MEDS: MAGNESIUM SULF 2 GM/WATER 50ML 2 GM/50 ML BAG IVPB (01:31)
--- NOTE | 2024-03-01 05:05 | P.HP_ITS ---
H&P: HPI History of Present Illness Date/Time: 03/01/24 05:05 Chief Complaint: Incontinent of bowel and bladder Narrative: 88-year-old female with a past medical history systolic congestive heart failure, mild pulmonary hypertension, chronic hearing loss with bilateral hearing aids, chronic atrial fibrillation, untreated obstructive sleep apnea on nighttime oxygen, essential hypertension, type 2 diabetes mellitus and chronic kidney disease stage 3 who presented to the ER from [place] due to diarrhea, nausea and lethargy The patient reports several days of urinary incontinence. Followed by 2 or 3 days of diarrhea. The patient reports that she was having incontinent bowel movements in her sleep without warning. She has been having increasing nausea vomiting throughout the day. She is usually alert orient x4 and interactive but became lethargic. EMS reported that the patient was clammy and jaundice on their arrival. The patient does have a history of She denies any abdominal pain but did grimace on palpation of her abdomen. Might would palpate her abdomen she was having incontinence of urine. The patient was evidently less responsive/less interactive in the ER. Her mucous membranes were dry on arrival to the ER and her blood pressures were soft with blood pressures of 93/61. The patient received 1 L fluid bolus with improvement in her blood pressures up slow low 100s. She also received a dose of IV albumin. Patient has had problems with urinary retention in the past. Her CT of abdomen pelvis performed in the ER demonstrated early acute diverticulitis of the rectosigmoid and large distended bladder. Patient denies any dysuria. She felt like she had been having decreased urine output over recent days. I asked nursing staff to bladder scan the patient she had greater than a L of retained urine. Patient's urine in the ER was concerning for UTI. Nursing staff reports the patient has not had a bowel movement since arrival to the medical floor. She has been afebrile. She has chronic wound to her legs which she reports actually looks better than previous. She has chronic lower extremity swelling. Her only major complaint otherwise is that her mouth is dry. On exam patient's tongue is so dry that the tip of her tongue is actually split and bleeding. Patient usually resides in [place] independent [facility]. She is usually able to ambulate with a walker. History was obtained from review of past medical records, review of EMS report, ER physician documentation and patient report. Patient is a fair historian. Review of Systems 2 Review of Systems: 12 systems were reviewed with pertinent positives and negatives per HPI. Except as documented in the HPI, all other systems were reviewed and are negative. [facility] Past Medical History Medical History (Updated 03/01/24 @ 09:55 by Jacquelin Rodrigues DO) Tubulovillous adenoma of colon WIN (iron deficiency anemia) CKD (chronic kidney disease) stage 4, GFR 15-29 ml/min With baseline creatinine between 1.6 and 1.9 Right wrist pain Fracture of triquetrum Heart failure with reduced ejection fraction echocardiogram in 11/2021 showed moderate concentric LVH, moderate global left ventricular systolic dysfunction with an estimated ejection fraction of 30 to 35%, severe biatrial enlargement, and mild pulmonary hypertension Insulin dependent type 2 diabetes mellitus Primary stress urinary incontinence Colon cancer Transient ischemic attack Iron deficiency anemia Gastroesophageal reflux disease Hypertension Deep venous thrombosis Venous stasis ulcers Anxiety Peripheral neuropathy Macular degeneration Chronic atrial fibrillation Chronic anticoagulation Severe obstructive sleep apnea intolerant to CPAP Surgical History Surgical History History of right hemicolectomy (07/2019) right colon cancer History of bilateral cataract extraction History of hysterectomy History of cholecystectomy Family History Family History Mother Family history of respiratory disorder, Onset Age: 21 Other Family history of cardiovascular disease Social History Social History 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 Code status: DNR/DNI Smoking status: Never smoker Second hand tobacco smoke exposure: No Alcohol intake: never Substance use: never Substance use type: does not use Do You Feel Safe in your Home?: Yes Lack of Transportation: No Lack of Food: Never True Current Housing: I Have Housing Concerned About Future Housing: No Difficulty Paying Gas/Electric Bills: No Difficulty Paying for Meds: No Currently Unemployed: No Education: High School Diploma/GED Difficulty w/ Childcare or Family Care: No Additional living arrangements comments: . Lives in independent living at [place]. Ambulates with a walker. Spiritual care concerns: No Agree to blood products: Yes Meds Home Medications and Allergies Home Medications ?Medication ?Instructions ?Recorded ?Confirmed ?Type loratadine 10 mg tablet 10 mg PO DAILY 01/11/19 02/29/24 History magnesium oxide 400 mg PO BID 03/14/19 02/29/24 History vit C 250 mg-vit E 90 mg-zinc 40 1 tablet PO BID 03/18/19 02/29/24 History mg-copper 1 [id number] capsule (PreserVision AREDS-2) apixaban 2.5 mg tablet (Eliquis) 2.5 mg PO BID 08/28/19 02/29/24 History insulin glargine U-300 conc 300 10 unit (0.0333 mL) subcut DAILY 03/25/23 02/29/24 Rx unit/mL (1.5 mL) subcutaneous pen #6 mL (Toujeo SoloStar U-300 Insulin) pen needle, diabetic 31 gauge x #400 ea 11/04/23 02/29/24 Rx 5/16 pantoprazole 40 mg tablet,delayed 40 mg PO QAM #90 tabs 11/29/23 02/29/24 Rx release cholestyramine-aspartame 4 gram 4 g PO HS 12/19/23 02/29/24 History oral powder for susp in a packet (Cholestyramine Light) flash glucose scanning reader 12/19/23 02/29/24 History (FreeStyle Aashish 14 Day [place]) flash glucose sensor (FreeStyle 12/19/23 02/29/24 History Aashish 14 Day Sensor kit) acetaminophen 325 mg capsule 650 mg PO Q6H PRN pain (scale 02/29/24 02/29/24 History score 1-3) furosemide 40 mg tablet 40 mg PO BID 02/29/24 02/29/24 History insulin lispro 100 unit/mL 3 unit subcut .COMPLEX 02/29/24 02/29/24 History subcutaneous pen (Humalog KwikPen (U-100) Insulin) metolazone 2.5 mg tablet 2.5 mg PO 4XW 02/29/24 02/29/24 History metoprolol succinate 200 mg 200 mg PO HS 02/29/24 02/29/24 History tablet,extended release 24 hr mupirocin 2 % topical ointment 1 applic topical DAILY 02/29/24 02/29/24 History nystatin 100,000 unit/gram topical 1 applic topical BID 02/29/24 02/29/24 History powder ondansetron 4 mg disintegrating 4 mg PO Q6H PRN nausea and vomiting 02/29/24 02/29/24 History tablet potassium chloride 20 mEq 40 meq PO .COMPLEX 02/29/24 02/29/24 History tablet,extended release(part/cryst) (Klor-Con M) triamcinolone acetonide 0.1 % 1 applic topical DAILY 02/29/24 02/29/24 History topical cream Allergies Allergy/AdvReac Type Severity Reaction Status Date / Time adhesive tape Allergy Unknown Rash Verified 02/25/24 11:32 cetirizine Allergy Unknown Swelling Verified 02/25/24 11:32 of Lip/Tongue/Throat diazepam Allergy Unknown Cough Verified 02/25/24 11:32 gabapentin Allergy Unknown Confusion Verified 02/25/24 11:32 levetiracetam Allergy Unknown Confusion Verified 02/25/24 11:32 levofloxacin Allergy Unknown Confusion Verified 02/25/24 11:32 pregabalin Allergy Unknown Confusion Verified 02/25/24 11:32 zolpidem Allergy Unknown Hallucinati Verified 02/25/24 11:32 ng sleep aids - all AdvReac Severe Hallucinati Uncoded 02/25/24 11:32 ng Vital Signs Vital Signs - 24 hr 02/29/24 16:19 02/29/24 16:35 02/29/24 16:40 Temperature 98.8 F Pulse Rate 109 H 102 H Respiratory Rate 20 Blood Pressure 100/68 Pulse Oximetry 100 100 Oxygen Delivery Nasal Cannula Nasal Cannula Oxygen Flow Rate 2 2 02/29/24 17:30 02/29/24 18:30 02/29/24 20:03 Temperature 97.8 F Pulse Rate 92 97 96 Respiratory Rate 23 H 24 H 20 Blood Pressure 99/68 L 93/61 L 97/68 L Pulse Oximetry 100 100 100 Oxygen Delivery Oxygen Flow Rate 02/29/24 20:56 02/29/24 21:06 02/29/24 21:30 Temperature 97.5 F L Pulse Rate 95 93 Respiratory Rate 22 H 18 Blood Pressure 109/54 L 108/55 L Pulse Oximetry 99 98 96 Oxygen Delivery Nasal Cannula Oxygen Flow Rate 2 02/29/24 22:46 02/29/24 23:37 03/01/24 00:00 Temperature Pulse Rate 81 81 87 Respiratory Rate Blood Pressure 104/56 L Pulse Oximetry Oxygen Delivery Oxygen Flow Rate 03/01/24 04:00 Temperature Pulse Rate 80 Respiratory Rate Blood Pressure Pulse Oximetry Oxygen Delivery Oxygen Flow Rate Exam 2 Narrative: Weight 91.5 kg BMI 35.7 Const: Other: Obese, elderly, debilitated, lying in bed with head of bed at 30? HENMT: Other: Mucous membranes are dry, tongue is dry and cracked with bleeding from the tip of the tongue, head is normocephalic atraumatic Eyes: Other: Pupils are equal and reactive, no scleral icterus, no conjunctival pallor Neck: Other: Mild JVD, trachea midline Resp: Other: Decreased breath sounds at the bases, no increased work of breathing, no tachypnea Cardio: Other: Irregularly irregular, rate controlled, 2+ bilateral radial and pedal pulses GI: Other: Patient grimaces in appears uncomfortable up palpation of the lower abdomen, lower abdomen seems somewhat distended, hyperactive bowel sounds : Other: Pure wick catheter in place with 300 mL of dark yellow urine Skin: Other: Chronic venous stasis changes to bilateral lower extremities with few scattered scabs, she has maceration to the buttocks, Neuro: Other: Alert orient x3, speech is clear but slow, no facial asymmetry, no localizing neurologic deficits noted during the course of conversation Extrem: Other: Chronic bilateral lower extremity edema, chronic venous stasis changes to bilateral lower extremities, moves all extremities equally but is generally weak Psych: Other: Appropriate mood and affect, pleasant and cooperative, judgment and insight intact H&P: Results Labs Labs: Laboratory Tests 02/29/24 16:32 02/29/24 16:32 02/29/24 02/29/24 02/29/24 16:32 16:33 18:35 WBC 6.2 RBC 4.16 L Hgb 10.9 L Hct 34.3 L MCV 82.5 MCH 26.2 MCHC 31.8 L RDW 17.4 H Plt Count 161 MPV 11.0 H Immature Gran % (Auto) 0.5 Neut % (Auto) 61.8 Lymph % (Auto) 16.7 L [place] % (Auto) 17.6 H Eos % (Auto) 3.1 Baso % (Auto) 0.3 Lymph # (Auto) 1.04 [place] # (Auto) 1.1 H Eos # (Auto) 0.2 Baso # (Auto) 0.0 Abs Immat Gran (auto) 0.03 Absolute Neuts (auto) 3.8 Absolute Nucleated RBC 0.000 Nucleated RBC % 0.0 PT 28.4 H INR 2.6 APTT 47.3 H Sodium 134 L Potassium 3.2 L Chloride 102 Carbon Dioxide 22 Anion Gap 10 BUN 49 H D Creatinine 1.64 H Estim Creat Clear Calc 23 Estimated GFR 29 L Glucose 77 POC Capillary Glucose Lactic Acid 1.3 Calcium 7.7 L Magnesium 1.5 L Total Bilirubin 1.9 H AST 18 ALT 10 Alkaline Phosphatase 150 H Troponin I < 0.012 Total Protein 6.0 L Albumin 2.7 L Lipase 13 L Procalcitonin 0.5 Urine Color Yellow Urine Appearance Clear Urine pH 5.0 Ur Specific [place] 1.008 Urine Protein Negative Urine Glucose (UA) Negative Urine Ketones Negative Ur Blood (Man) Negative Urine Nitrate Positive H Urine Bilirubin Negative Urine Urobilinogen 0.2 Leukocyte Esterase Rfl Trace H Urine RBC 0-2 Urine WBC 0-5 Ur Squamous Epith Cells None seen Urine Bacteria 4+ H Urine Casts 0-2 Influenza A (RT-PCR) Negative Influenza B (RT-PCR) Negative RSV (RT-PCR) Negative SARS-CoV-2 RNA (RT-PCR) Negative 02/29/24 02/29/24 03/01/24 19:34 22:29 07:56 WBC RBC Hgb Hct MCV MCH MCHC RDW Plt Count MPV Immature Gran % (Auto) Neut % (Auto) Lymph % (Auto) [place] % (Auto) Eos % (Auto) Baso % (Auto) Lymph # (Auto) [place] # (Auto) Eos # (Auto) Baso # (Auto) Abs Immat Gran (auto) Absolute Neuts (auto) Absolute Nucleated RBC Nucleated RBC % PT INR APTT Sodium Potassium Chloride Carbon Dioxide Anion Gap BUN Creatinine Estim Creat Clear Calc Estimated GFR Glucose POC Capillary Glucose 71 103 Lactic Acid Calcium Magnesium Total Bilirubin AST ALT Alkaline Phosphatase Troponin I Cancelled Total Protein Albumin Lipase Procalcitonin Urine Color Urine Appearance Urine pH Ur Specific [place] Urine Protein Urine Glucose (UA) Urine Ketones Ur Blood (Man) Urine Nitrate Urine Bilirubin Urine Urobilinogen Leukocyte Esterase Rfl Urine RBC Urine WBC Ur Squamous Epith Cells Urine Bacteria Urine Casts Influenza A (RT-PCR) Influenza B (RT-PCR) RSV (RT-PCR) SARS-CoV-2 RNA (RT-PCR) Impressions Chest X-Ray 02/29/24 17:04 IMPRESSION: Mild pulmonary vascular congestion, with a left-sided pleural effusion. No focal infiltrate. Abdomen/Pelvis CT 02/29/24 17:35 IMPRESSION: Findings within the rectosigmoid colon which may represent early/acute diverticulitis. Otherwise, no acute intra-abdominal pathology. Innumerable nonacute findings, as detailed above. All imaging and EKGs personally reviewed and interpreted. And unless stated otherwise agree with radiologic and cardiology interpretation. Assessment and Plan Assessment and plan (1) Diverticulitis: Code(s): K57.92 - Diverticulitis of intestine, part unspecified, without perforation or abscess without bleeding Status: Acute (2) Urinary tract infection: Qualifiers: Hematuria presence: without hematuria Urinary tract infection type: s ite unspecified Qualified Code(s): N39.0 - Urinary tract infection, site not specified Code(s): N39.0 - Urinary tract infection, site not specified Status: Acute (3) Acute on chronic renal failure: Qualifiers: Acute renal failure type: unspecified Chronic kidney disease stage: s tage 4 (GFR 15-29) Qualified Code(s): N17.9 - Acute kidney failure, unspecified; N18.4 - Chronic kidney disease, stage 4 (severe) Code(s): N17.9 - Acute kidney failure, unspecified; N18.9 - Chronic kidney disease, unspecified Status: Acute (4) Urinary retention with incomplete bladder emptying: Code(s): R33.9 - Retention of urine, unspecified Status: Acute (5) Hypomagnesemia: Code(s): E83.42 - Hypomagnesemia Status: Acute (6) Heart failure with reduced ejection fraction: Code(s): I50.20 - Unspecified systolic (congestive) heart failure Status: Acute (7) Chronic atrial fibrillation: Code(s): I48.20 - Chronic atrial fibrillation, unspecified Status: Acute (8) Insulin dependent type 2 diabetes mellitus: Code(s): E11.9 - Type 2 diabetes mellitus without complications; 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 Patient did have evidence of urinary retention requiring Wilkerson catheter placement. Blood cultures and urine cultures have been obtained and are pending. Patient been placed on empiric antibiotic therapy with Rocephin and Flagyl. Will restart patient on a consistent carbohydrate diet. Given as patient is euglycemic and has had decreased oral intake will hold the patient's home oral hypoglycemic agents avoids oral low- dose sliding scale insulin. Patient does have evidence of acute on chronic kidney injury likely due to a combination of urinary retention and hypovolemia with borderline low blood pressures. Patient did receive 500 mL of IV fluids in the ER. At this time these have been completed. Will continue patient on albumin given her significant hypoalbuminemia which is gotten or since her prior admission. This is likely due to a component of protein calorie malnutrition and chronic illness. Patient's blood pressures improved after only giving a partial dose of the patient's home metoprolol. Patient's daughter is adamant that the patient's diuretic therapy and blood pressure medicines do not get adjusted and less cardiology is consulted. Patient's AFib and heart failure appeared to be otherwise stable. There is no indication to consult Cardiology at this time. Will monitor strict I&O's and daily weights. At this time given that her blood pressures have improved will resume her home cardiac medications. The patient had significant hypo magnesemia. 1 g of magnesium sulfate was given in the ER. 2 g rider was ordered on arrival to the floor. Will aim for magnesium levels of around 2 given the patient's history of cardiac arrhythmia. EKG had not been obtained in the ER and subsequently was ordered. Will monitor patient on telemetry. Quality VTE Prophylaxis VTE prophylaxis: pharmacologic ordered (Continue home Eliquis) Hospitalist [facility] Advance Care Plan I have confirmed that the patient's Advanced Care Plan is present, code status is documented, or surrogate decision maker is listed in patient medical record.: Yes Medication Reconciliation I have utilized all available resources to obtain, update and review the patients current medications (includes all prescriptions, OTC, herbals, cannabis, and nutritional supplements).: Yes
[2024-03-01] MEDS: metroNIDAZOLE 500 MG/ISO 100ML 500 MG/100 ML BAG 100 MG IVPB ×3 (05:07→22:03)
[2024-03-01] MEDS: ACETAMINOPHEN 325 MG TABLET 650 MG PO ×2 (05:53→14:03)
[2024-03-01] MEDS: ALBUMIN HUMAN 25% 25 GM/100 ML 100 ML IVPB ×2 (06:16→11:54)
[2024-03-01 08:10] LABS: Glucose Point of Care 103 mg/dl (65-105)
[2024-03-01] MEDS: POTASSIUM CHLORIDE 20 MEQ PACKET (FOR LIQUID) 40 MEQ PO ×2 (08:10→17:03)
[2024-03-01] MEDS: FUROSEMIDE 40 MG TABLET PO ×2 (08:10→11:54)
[2024-03-01] MEDS: PANTOPRAZOLE 40 MG TABLET PO (08:10)
[2024-03-01] MEDS: LORATADINE 10 MG TABLET PO (08:10)
[2024-03-01] MEDS: MAGNESIUM OXIDE 400 MG TABLET PO ×2 (08:10→17:03)
[2024-03-01] MEDS: TRIAMCINOLONE ACET 0.1% CREAM 15 GM TUBE 1 APPLIC TOPICAL (08:11)
[2024-03-01] MEDS: APIXABAN 2.5 MG TABLET PO ×2 (08:11→20:44)
[2024-03-01] MEDS: MUPIROCIN 2% OINT 22 GM TUBE 1 APPLIC TOPICAL (08:11)
[2024-03-01] MEDS: OPTI-GEN TAB 1 TABLET PO ×2 (08:11→17:03)
--- NOTE | 2024-03-01 10:18 | P.PNIM_ITS ---
Progress Note: A&P Assessment and Plan (1) Diverticulitis: Code(s): K57.92 - Diverticulitis of intestine, part unspecified, without perforation or abscess without bleeding Status: Acute Assessment and Plan: - CT abd/pelvis; Early acute diverticulitis of the rectosigmoid and large distended bladder. - Patient currently tolerating diet well. - No WBC's or fevers for now. - Continue to follow cultures. (2) Urinary tract infection: Qualifiers: Hematuria presence: without hematuria Urinary tract infection type: site unspecified Qualified Code(s): N39.0 - Urinary tract infection, site not specified Code(s): N39.0 - Urinary tract infection, site not specified Status: Acute Assessment and Plan: - UA suspicious for possible UTI. - Covered by current abx ( Ceftriaxone). - Continue to follow cultures on current abx. (3) Acute on chronic renal failure: Qualifiers: Acute renal failure type: unspecified Chronic kidney disease stage: stage 4 (GFR 15-29) Qualified Code(s): N17.9 - Acute kidney failure, unspecified; N18.4 - Chronic kidney disease, stage 4 (severe) Code(s): N17.9 - Acute kidney failure, unspecified; N18.9 - Chronic kidney disease, unspecified Status: Acute Assessment and Plan: - Possibly multifactorial secondary to dehydration from poor PO intake /+vs diuretics use +/vs infection. - Given fluid bolus in ER and albumin. - Lasix dose reduced to 40 mg daily from BID with BP trending low and RIANA on CKD. - Continue to avoid nephrotoxics. - Meds dosing per renal function. (4) Urinary retention with incomplete bladder emptying: Code(s): R33.9 - Retention of urine, unspecified Status: Acute Assessment and Plan: - Possibly related to acute cystitis vs chronic retention vs other. - Wilkerson catheter placed on admission and we'll maintain for now. - Consider voiding trials beforer discharge. (5) Hypotension: Code(s): I95.9 - Hypotension, unspecified Status: Acute Assessment and Plan: - Possibly multifactorial; High doses or BP meds vs/+ infection vs /+ diuresis vs/+ poor PO intake. - Given fluid bolus in ER and 4 doses albumin. - BP levels improving. - Continue to monitor closely and adjust meds as needed. (6) Hypomagnesemia: Code(s): E83.42 - Hypomagnesemia Status: Acute Assessment and Plan: - Replaced and currently wnl. (7) Heart failure with reduced ejection fraction: Code(s): I50.20 - Unspecified systolic (congestive) heart failure Status: Acute Assessment and Plan: - Appears compensated. - ECHO 11/29 showed EF 30-35 %. - Continue diuresis with Lasix and Metolazone. - Continue to monitor closely for decompensation. - Monitor BP closely. (8) Chronic atrial fibrillation: Code(s): I48.20 - Chronic atrial fibrillation, unspecified Status: Acute Assessment and Plan: - Rate well controlled. - Continue Metoprolol and apixaban. (9) Insulin dependent type 2 diabetes mellitus: Code(s): E11.9 - Type 2 diabetes mellitus without complications; Z79.4 - [facility] (current) use of insulin Status: Acute Assessment and Plan: - Blood-glucose levels currently well controlled. - Continue low-dose SSI for now. Time Spent With Patient Time with patient: 25 - 35 minutes Subjective Date/time seen: 03/01/24 10:05 Patient states she feels alright and has no pain or distressful symptoms. States she hasn't had any diarrhea episodes since coming to the hospital. Interval history: Patient calm on bedrest with daughter bedside. Patient presented to the ER from her assisted living facility with reports of increased generalized weakness and diarrhea episodes. Her CT of abdomen pelvis performed in the ER demonstrated early acute diverticulitis of the rectosigmoid and large distended bladder. She was suspected of having a UTI as well and currently on Ceftriaxone and Metronidazole for possible diverticulitis and UTI. Patient currently appears to be tolerating diabetic diet well and no diarrhea episodes so far. We'll continue IV abx for now as we follow cultures. Review of Systems Review of Systems: HEENT: Atraumatic, PERRL, EOMI, Moist mucosa. NECK: Supple. Lungs: Faint crackles to bases. Heart: RRR, no murmurs. Abdomen: Soft, non-tender, non-distended, +ve BS X4 Quadrants. Extremities: 3+ edema mala. LE. Skin: Stage II-III sacral decubitus with macerated borders, no drainage noted. Other wound per picture documented on other. Neuro: Fairly well oriented. No focal neuro deficits noted. Psych: Calm and co-operative. Objective Data Vital Signs Vital Signs: Vital Signs - 24 hr 02/29/24 16:19 02/29/24 16:35 02/29/24 16:40 Temperature 98.8 F Pulse Rate 109 H 102 H Respiratory Rate 20 Blood Pressure 100/68 Pulse Oximetry 100 100 Oxygen Delivery Nasal Cannula Nasal Cannula Oxygen Flow Rate 2 2 02/29/24 17:30 02/29/24 18:30 02/29/24 20:03 Temperature 97.8 F Pulse Rate 92 97 96 Respiratory Rate 23 H 24 H 20 Blood Pressure 99/68 L 93/61 L 97/68 L Pulse Oximetry 100 100 100 Oxygen Delivery Oxygen Flow Rate 02/29/24 20:56 02/29/24 21:06 02/29/24 21:30 Temperature 97.5 F L Pulse Rate 95 93 Respiratory Rate 22 H 18 Blood Pressure 109/54 L 108/55 L Pulse Oximetry 99 98 96 Oxygen Delivery Nasal Cannula Oxygen Flow Rate 2 02/29/24 22:46 02/29/24 23:37 03/01/24 00:00 Temperature Pulse Rate 81 81 87 Respiratory Rate Blood Pressure 104/56 L Pulse Oximetry Oxygen Delivery Oxygen Flow Rate 03/01/24 04:00 03/01/24 05:05 Temperature 97.8 F Pulse Rate 80 79 Respiratory Rate 18 Blood Pressure 120/54 L Pulse Oximetry 96 Oxygen Delivery Oxygen Flow Rate Intake/Output Intake/Output: Intake & Output 02/27/24 02/28/24 02/29/24 03/01/24 23:59 23:59 23:59 23:59 Intake Total 1350 1590 Output Total 300 1200 Balance 1050 390 Meds/Results Medications: Active Medications Generic Name Dose Route Start Last Admin Trade Name Freq PRN Reason Stop Dose Admin Acetaminophen 650 mg 02/29/24 22:09 03/01/24 05:53 Acetaminophen 325 Mg Tablet PO 650 mg Q6H PRN Administration pain 1-3 or fever Apixaban 2.5 mg 02/29/24 22:30 03/01/24 08:11 Apixaban 2.5 Mg Tablet PO 2.5 mg Q12HR LIO Administration Cholestyramine Resin 4 gm 03/01/24 21:00 Cholestyramine Light 4 Gm Powd.Pack PO HS LIO Dextrose 12.5 gm 03/01/24 09:47 Dextrose 50% 25 Gm/50 Ml Syringe IV PUSH PRN PRN Hypoglycemia Protocol Furosemide 40 mg 03/01/24 09:25 Furosemide 40 Mg Tablet PO DAILY LIO Glucagon 1 mg 03/01/24 09:47 Glucagon For Inj 1 Mg Vial IM PRN PRN Hypoglycemia Protocol Glucose 15 gm 03/01/24 09:47 Glucose Oral Gel 15 Gm Of Glucse In 37.5 Gm Tube PO PRN PRN Hypoglycemia Protocol Albumin Human 100 mls @ 60 mls/hr 02/29/24 18:40 03/01/24 07:57 Albutein IVPB 03/01/24 13:39 Infused Q6HR LIO Infusion Metronidazole 500 mg in 100 mls @ 100 mls/hr 02/29/24 22:00 03/01/24 06:07 Flagyl 500 Mg/Iso Soln 100 Ml IVPB Infused Q8H LIO Infusion Ceftriaxone Sodium 1 gm in 50 mls @ 100 mls/hr 02/29/24 21:00 02/29/24 23:02 Rocephin 1 Gm/Ns 50 Ml IVPB Infused Q24H LIO Infusion Dextrose 1,000 mls @ 100 mls/hr 03/01/24 09:47 Dextrose 5% 1,000 Ml IVPB PRN PRN Hypoglycemia Protocol Insulin Aspart 2 - 5 units 03/01/24 12:00 Insulin Aspart (*Bkc) 100 Units/Ml SUB-Q TIDWM [facility] Protocol Insulin Aspart 1 - 2 units 03/01/24 21:00 Insulin Aspart (*Bkc) 100 Units/Ml SUB-Q HS [facility] Protocol Loratadine 10 mg 03/01/24 09:00 03/01/24 08:10 Loratadine 10 Mg Tablet PO 10 mg DAILY LIO Administration Magnesium Oxide 400 mg 03/01/24 09:00 03/01/24 08:10 Magnesium Oxide 400 Mg Tablet PO 400 mg BID LIO Administration Metolazone 2.5 mg 03/02/24 08:30 Metolazone 2.5 Mg Tablet PO SuTuThSa@0830,1630 LIO Metoprolol Succinate 200 mg 03/01/24 21:00 Metoprolol Succinate Ext Rel 100 Mg Tabcr PO HS [facility] Multivitamins/Minerals 1 tablet 03/01/24 09:00 03/01/24 08:11 Opti-Gen Tab PO 1 tablet BID LIO Administration Mupirocin 1 applic 03/01/24 09:00 03/01/24 08:11 Mupirocin 2% Oint 22 Gm Tube TOPICAL 1 applic DAILY LIO Administration Ondansetron HCl 4 mg 02/29/24 18:42 Ondansetron Inj 4 Mg/2 Ml Vial IV PUSH Q4H PRN Nausea Pantoprazole Sodium 40 mg 03/01/24 09:00 03/01/24 08:10 Pantoprazole 40 Mg Tablet PO 40 mg QAM LIO Administration Potassium Chloride 40 meq 03/01/24 09:00 03/01/24 08:10 Potassium Chloride 20 Meq Packet (For Liquid) PO 40 meq MoWeFr@0900,1700 LIO Administration Potassium Chloride 40 meq 03/02/24 09:00 Potassium Chloride 20 Meq Packet (For Liquid) PO SuTuThSa@0900,1300,1700 [facility] Triamcinolone Acetonide 1 applic 03/01/24 09:00 03/01/24 08:11 Triamcinolone Acet 0.1% Cream 15 Gm Tube TOPICAL 1 applic DAILY LIO Administration Radiology Results: ITS Impressions Chest X-Ray 02/29/24 17:04 IMPRESSION: Mild pulmonary vascular congestion, with a left-sided pleural effusion. No focal infiltrate. Abdomen/Pelvis CT 02/29/24 17:35 IMPRESSION: Findings within the rectosigmoid colon which may represent early/acute diverticulitis. Otherwise, no acute intra-abdominal pathology. Innumerable nonacute findings, as detailed above. Labs Labs: Laboratory Results - last 24 hr 02/29/24 02/29/24 02/29/24 16:32 16:33 18:35 WBC 6.2 RBC 4.16 L Hgb 10.9 L Hct 34.3 L MCV 82.5 MCH 26.2 MCHC 31.8 L RDW 17.4 H Plt Count 161 MPV 11.0 H Immature Gran % (Auto) 0.5 Neut % (Auto) 61.8 Lymph % (Auto) 16.7 L [place] % (Auto) 17.6 H Eos % (Auto) 3.1 Baso % (Auto) 0.3 Lymph # (Auto) 1.04 [place] # (Auto) 1.1 H Eos # (Auto) 0.2 Baso # (Auto) 0.0 Abs Immat Gran (auto) 0.03 Absolute Neuts (auto) 3.8 Absolute Nucleated RBC 0.000 Nucleated RBC % 0.0 PT 28.4 H INR 2.6 APTT 47.3 H Sodium 134 L Potassium 3.2 L Chloride 102 Carbon Dioxide 22 Anion Gap 10 BUN 49 H D Creatinine 1.64 H Estim Creat Clear Calc 23 Estimated GFR 29 L Glucose 77 POC Capillary Glucose Lactic Acid 1.3 Calcium 7.7 L Magnesium 1.5 L Total Bilirubin 1.9 H AST 18 ALT 10 Alkaline Phosphatase 150 H Troponin I < 0.012 Total Protein 6.0 L Albumin 2.7 L Lipase 13 L Procalcitonin 0.5 Urine Color Yellow Urine Appearance Clear Urine pH 5.0 Ur Specific [place] 1.008 Urine Protein Negative Urine Glucose (UA) Negative Urine Ketones Negative Ur Blood (Man) Negative Urine Nitrate Positive H Urine Bilirubin Negative Urine Urobilinogen 0.2 Leukocyte Esterase Rfl Trace H Urine RBC 0-2 Urine WBC 0-5 Ur Squamous Epith Cells None seen Urine Bacteria 4+ H Urine Casts 0-2 Influenza A (RT-PCR) Negative Influenza B (RT-PCR) Negative RSV (RT-PCR) Negative SARS-CoV-2 RNA (RT-PCR) Negative 02/29/24 02/29/24 03/01/24 19:34 22:29 07:56 WBC RBC Hgb Hct MCV MCH MCHC RDW Plt Count MPV Immature Gran % (Auto) Neut % (Auto) Lymph % (Auto) [place] % (Auto) Eos % (Auto) Baso % (Auto) Lymph # (Auto) [place] # (Auto) Eos # (Auto) Baso # (Auto) Abs Immat Gran (auto) Absolute Neuts (auto) Absolute Nucleated RBC Nucleated RBC % PT INR APTT Sodium Potassium Chloride Carbon Dioxide Anion Gap BUN Creatinine Estim Creat Clear Calc Estimated GFR Glucose POC Capillary Glucose 71 103 Lactic Acid Calcium Magnesium Total Bilirubin AST ALT Alkaline Phosphatase Troponin I Cancelled Total Protein Albumin Lipase Procalcitonin Urine Color Urine Appearance Urine pH Ur Specific [place] Urine Protein Urine Glucose (UA) Urine Ketones Ur Blood (Man) Urine Nitrate Urine Bilirubin Urine Urobilinogen Leukocyte Esterase Rfl Urine RBC Urine WBC Ur Squamous Epith Cells Urine Bacteria Urine Casts Influenza A (RT-PCR) Influenza B (RT-PCR) RSV (RT-PCR) SARS-CoV-2 RNA (RT-PCR) Quality VTE Prophylaxis VTE prophylaxis: pharmacologic ordered Hospitalist [facility] Advance Care Plan I have confirmed that the patient's Advanced Care Plan is present, code status is documented, or surrogate decision maker is listed in patient medical record.: Yes Medication Reconciliation I have utilized all available resources to obtain, update and review the patients current medications (includes all prescriptions, OTC, herbals, cannabis, and nutritional supplements).: Yes
[2024-03-01 10:22] LABS: Hematocrit 30.1 % (37.0-47.0); Hemoglobin 9.5 g/dL (12.0-15.0); Immature Platelet Fraction Pct 6.7 % (0.9-11.2); Mean Corpuscular HGB Conc 31.6 g/dl (32-36); Mean Corpuscular Hemoglobin 26.5 pg (26-34); Mean Corpuscular Volume 84.1 fl (80-100); Mean Platelet Volume 10.9 fl (7.4-10.4); Platelet Count Result 140 k/mm3 (150-375); Red Blood Count 3.58 M/mm3 (4.2-5.4); Red Cell Distribution Width 17.4 % (11.5-14.5)
[2024-03-01 10:29] LABS: Anion Gap 13 mmol/L (4-12); Blood Urea Nitrogen 45 mg/dL (7-17); Calcium 8.1 mg/dL (8.4-10.2); Carbon Dioxide 21 mmol/L (22-30); Chloride 101 mmol/L (98-107); Estimated CRCL calculation 22 ml/min; Estimated Glomerular Filt Rate 29; Glucose 116 mg/dL (65-110); Magnesium 2.1 mg/dL (1.6-2.3); Potassium 3.2 mmol/L (3.4-5.0); Sodium 135 mmol/L (137-145)
--- NOTE | 2024-03-01 12:01 | WPDURCON ---
Assessment and Plan Assessment and plan (1) Chronic kidney disease, stage IV (severe): Code(s): N18.4 - Chronic kidney disease, stage 4 (severe) Status: Chronic Assessment and Plan: Chronic, stable CKD III-IV at baseline Cr 1.68, GFR 29 (2) Urinary retention with incomplete bladder emptying: Code(s): R33.9 - Retention of urine, unspecified Status: Acute Assessment and Plan: Acute urinary retention likely 2/2 acute illness, weakness, deconditioning, advanced age Admitted with diverticulitis, UTI (3) Urinary tract infection: Qualifiers: Hematuria presence: without hematuria Urinary tract infection type: site unspecified Qualified Code(s): N39.0 - Urinary tract infection, site not specified Code(s): N39.0 - Urinary tract infection, site not specified Status: Acute Assessment and Plan: Present on admission UA suspicious for UTI -- likely 2/2 acute diarrheal illness with recent bowel/bladder incontinence Urine culture pending on IV ceftriaxone Plan - Agree with culture-directed antibiotics for suspected UTI. - Trend Cr, avoid nephrotoxins as ab.le - Maintain indwelling Wilkerson catheter as she recovers from diverticulitis. Please keep off tension. She requires daily and PRN genital hygiene. - OK for void trial prior to discharge when she's more ambulatory. Patient made it clear today that she will not be leaving the hospital with a catheter . - No plan for inpatient urologic surgical intervention. - Patient can follow-up outpatient for advanced bladder function workup to include Urodynamics if aligns with patient's goals of care. Urology Consult Note HPI Date Seen: 03/01/24 Requesting Physician: Leonid Osborne MD Primary Care Provider: UNKNOWN,DOCTOR Consult Narrative Reason for consult: Acute urinary retention, Complicated UTI Narrative: aRdha Salmeron is an 88-year-old female admitted 03/01/24 from an assisted living facility for evaluation and management of diarrhea, nausea, lethargy, abdominal pain, worsening bowel/bladder incontinence. She was hypotensive in the ER, fluid responsive. CT imaging significant for early diverticulitis, distended bladder, large right renal cyst. Urinalysis suspicious for UTI. Indwelling Wilkerson catheter was placed for PVR bladder scan >1L. On chart review, she was treated for Klebsiella UTI 12/2023. History of urinary retention requiring indwelling Wilkerson in 2023 following a fall/wrist fracture. She follows with outpatient urology as needed, citing advanced aged. Medical history significant for CKD III, OAB, AFIB on Eliquis, IDDM, CHFrEF, severe CARLY, colon cancer s/p right hemicolectomy. Nonsmoker. DNR code status noted. PERTINENT LABS: 03/01/24 - WBC 5, HGB 9.5, PLT 140, Cr 1.68, GFR 29 02/29/24 Urinalysis: Trace LE, +nitrates, 4+ bacteria Blood and urine cultures pending on IV ceftriaxone. Review of Systems Constitutional: Constitutional: Reports as per HPI Eyes: Eyes: Reports no additional eye complaints ENT: Reports Normal hearing present Cardiovascular: Cardiovascular: Reports no additional cardiovascular complaints Respiratory: Respiratory: Reports no additional respiratory complaints Gastrointestinal: Gastrointestinal: Reports as per HPI Genitourinary: Genitourinary: Reports as per HPI Musculoskeletal: Musculoskeletal: Reports no additional musculoskeletal complaints Neurologic: Reports system reviewed and no additional complaints, except as documented Psychiatric: Psychiatric: Reports no additional psychiatric complaints [facility] Past Medical History Medical History (Updated 03/01/24 @ 10:52 by Feli Dunn NP) Tubulovillous adenoma of colon WIN (iron deficiency anemia) CKD (chronic kidney disease) stage 4, GFR 15-29 ml/min With baseline creatinine between 1.6 and 1.9 Right wrist pain Fracture of triquetrum Heart failure with reduced ejection fraction echocardiogram in 11/2021 showed moderate concentric LVH, moderate global left ventricular systolic dysfunction with an estimated ejection fraction of 30 to 35%, severe biatrial enlargement, and mild pulmonary hypertension Insulin dependent type 2 diabetes mellitus Primary stress urinary incontinence Colon cancer Transient ischemic attack Iron deficiency anemia Gastroesophageal reflux disease Hypertension Deep venous thrombosis Venous stasis ulcers Anxiety Peripheral neuropathy Macular degeneration Chronic atrial fibrillation Chronic anticoagulation Severe obstructive sleep apnea intolerant to CPAP Surgical History Surgical History History of right hemicolectomy (07/2019) right colon cancer History of bilateral cataract extraction History of hysterectomy History of cholecystectomy Family History Family History Mother Family history of respiratory disorder, Onset Age: 21 Other Family history of cardiovascular disease Social History Social History Social History: Healthcare power of executive vice president and chief financial officer: Katelyn Bird, daughter. Code status: DNR/DNI Smoking status: Never smoker Second hand tobacco smoke exposure: No Alcohol intake: never Substance use: never Substance use type: does not use Do You Feel Safe in your Home?: Yes Lack of Transportation: No Lack of Food: Never True Current Housing: I Have Housing Concerned About Future Housing: No Difficulty Paying Gas/Electric Bills: No Difficulty Paying for Meds: No Currently Unemployed: No Education: High School Diploma/GED Difficulty w/ Childcare or Family Care: No Additional living arrangements comments: . Lives in independent living at [place]. Ambulates with a walker. Spiritual care concerns: No Agree to blood products: Yes Meds Home Medications and Allergies Home Medications ?Medication ?Instructions ?Recorded ?Confirmed ?Type loratadine 10 mg tablet 10 mg PO DAILY 01/11/19 02/29/24 History magnesium oxide 400 mg PO BID 03/14/19 02/29/24 History vit C 250 mg-vit E 90 mg-zinc 40 1 tablet PO BID 03/18/19 02/29/24 History mg-copper 1 [id number] capsule (PreserVision AREDS-2) apixaban 2.5 mg tablet (Eliquis) 2.5 mg PO BID 08/28/19 02/29/24 History insulin glargine U-300 conc 300 10 unit (0.0333 mL) subcut DAILY 03/25/23 02/29/24 Rx unit/mL (1.5 mL) subcutaneous pen #6 mL (Toujeo SoloStar U-300 Insulin) pen needle, diabetic 31 gauge x #400 ea 11/04/23 02/29/24 Rx 5/16 pantoprazole 40 mg tablet,delayed 40 mg PO QAM #90 tabs 11/29/23 02/29/24 Rx release cholestyramine-aspartame 4 gram 4 g PO HS 12/19/23 02/29/24 History oral powder for susp in a packet (Cholestyramine Light) flash glucose scanning reader 12/19/23 02/29/24 History (FreeStyle Aashish 14 Day [place]) flash glucose sensor (FreeStyle 12/19/23 02/29/24 History Aashish 14 Day Sensor kit) acetaminophen 325 mg capsule 650 mg PO Q6H PRN pain (scale 02/29/24 02/29/24 History score 1-3) furosemide 40 mg tablet 40 mg PO BID 02/29/24 02/29/24 History insulin lispro 100 unit/mL 3 unit subcut .COMPLEX 02/29/24 02/29/24 History subcutaneous pen (Humalog KwikPen (U-100) Insulin) metolazone 2.5 mg tablet 2.5 mg PO 4XW 02/29/24 02/29/24 History metoprolol succinate 200 mg 200 mg PO HS 02/29/24 02/29/24 History tablet,extended release 24 hr mupirocin 2 % topical ointment 1 applic topical DAILY 02/29/24 02/29/24 History nystatin 100,000 unit/gram topical 1 applic topical BID 02/29/24 02/29/24 History powder ondansetron 4 mg disintegrating 4 mg PO Q6H PRN nausea and vomiting 02/29/24 02/29/24 History tablet potassium chloride 20 mEq 40 meq PO .COMPLEX 02/29/24 02/29/24 History tablet,extended release(part/cryst) (Klor-Con M) triamcinolone acetonide 0.1 % 1 applic topical DAILY 02/29/24 02/29/24 History topical cream Allergies Allergy/AdvReac Type Severity Reaction Status Date / Time adhesive tape Allergy Unknown Rash Verified 02/25/24 11:32 cetirizine Allergy Unknown Swelling Verified 02/25/24 11:32 of Lip/Tongue/Throat diazepam Allergy Unknown Cough Verified 02/25/24 11:32 gabapentin Allergy Unknown Confusion Verified 02/25/24 11:32 levetiracetam Allergy Unknown Confusion Verified 02/25/24 11:32 levofloxacin Allergy Unknown Confusion Verified 02/25/24 11:32 pregabalin Allergy Unknown Confusion Verified 02/25/24 11:32 zolpidem Allergy Unknown Hallucinati Verified 02/25/24 11:32 ng sleep aids - all AdvReac Severe Hallucinati Uncoded 02/25/24 11:32 ng Vital Signs Vital Signs - 24 hr 02/29/24 16:19 02/29/24 16:35 02/29/24 16:40 Temperature 98.8 F Pulse Rate 109 H 102 H Respiratory Rate 20 Blood Pressure 100/68 Pulse Oximetry 100 100 Oxygen Delivery Nasal Cannula Nasal Cannula Oxygen Flow Rate 2 2 02/29/24 17:30 02/29/24 18:30 02/29/24 20:03 Temperature 97.8 F Pulse Rate 92 97 96 Respiratory Rate 23 H 24 H 20 Blood Pressure 99/68 L 93/61 L 97/68 L Pulse Oximetry 100 100 100 Oxygen Delivery Oxygen Flow Rate 02/29/24 20:56 02/29/24 21:06 02/29/24 21:30 Temperature 97.5 F L Pulse Rate 95 93 Respiratory Rate 22 H 18 Blood Pressure 109/54 L 108/55 L Pulse Oximetry 99 98 96 Oxygen Delivery Nasal Cannula Oxygen Flow Rate 2 02/29/24 22:46 02/29/24 23:37 03/01/24 00:00 Temperature Pulse Rate 81 81 87 Respiratory Rate Blood Pressure 104/56 L Pulse Oximetry Oxygen Delivery Oxygen Flow Rate 03/01/24 04:00 03/01/24 05:05 Temperature 97.8 F Pulse Rate 80 79 Respiratory Rate 18 Blood Pressure 120/54 L Pulse Oximetry 96 Oxygen Delivery Oxygen Flow Rate Exam Const: General: comfortable and no acute distress HENMT: Face/Nose/Sinus: Normal nares present Mouth: Yes dry mucous membranes Other: poor dentition Eyes: General: appearance normal, both eyes and all related structures Resp: Effort & Inspection: normal respiratory effort Urinary Catheter: Urinary Catheter: patent and draining and urine clear Skin: General skin exam: normal color Neuro: Speech: normal speech Psych: Speech and movement: Normal speech and movement present Affect: normal affect Results Labs 03/01/24 09:50 03/01/24 09:50 Labs: Short CBC 02/29/24 03/01/24 Range/Units 16:32 09:50 WBC 6.2 5.0 (4.5-10.0) K/mm3 Hgb 10.9 L 9.5 L (12.0-15.0) g/dL Hct 34.3 L 30.1 L (37.0-47.0) % Plt Count 161 140 L (150-375) k/mm3 BMP 02/29/24 03/01/24 16:32 09:50 Sodium 134 L 135 L Potassium 3.2 L 3.2 L Chloride 102 101 Carbon Dioxide 22 21 L BUN 49 H D 45 H Creatinine 1.64 H 1.68 H Glucose 77 116 H Calcium 7.7 L 8.1 L Cardiac Enzymes 02/29/24 02/29/24 Range/Units 16:32 19:34 Troponin I < 0.012 Cancelled (0.000-0.034) ng/mL Liver Function 02/29/24 Range/Units 16:32 Total Bilirubin 1.9 H (0.2-1.3) mg/dL AST 18 (14-36) U/L ALT 10 (6-35) U/L Alkaline Phosphatase 150 H (38-126) U/L Albumin 2.7 L (3.5-5.1) g/dL Urine 02/29/24 Range/Units 18:35 Urine Color Yellow (Yellow) Urine Appearance Clear (Clear) Urine pH 5.0 (5.0-9.0) Ur Specific [place] 1.008 (1.001-1.035) Urine Protein Negative (Negative) mg/dL Urine Glucose (UA) Negative (Negative) mg/dL
[2024-03-01 12:17] LABS: Glucose Point of Care 156 mg/dl (65-105)
[2024-03-01 17:28] LABS: Glucose Point of Care 169 mg/dl (65-105)
[2024-03-01] MEDS: METOPROLOL SUCCINATE EXT REL 100 MG TABCR 200 MG PO (20:44)
[2024-03-01 21:21] LABS: Glucose Point of Care 182 mg/dl (65-105)
[2024-03-01] MEDS: CHOLESTYRAMINE LIGHT 4 GM POWD.PACK PO (22:03)
[2024-03-02] VITALS (12 sets, daily range): BP systolic 106–130; BP diastolic 57–67; PULSE 70–93; RESP 16–20; TEMP 36.3; O2SAT 93–100
[2024-03-02] MEDS: metroNIDAZOLE 500 MG/ISO 100ML 500 MG/100 ML BAG 100 MG IVPB ×3 (06:21→22:35)
[2024-03-02 08:01] LABS: Glucose Point of Care 145 mg/dl (65-105)
[2024-03-02] MEDS: metOLazone 2.5 MG TABLET PO ×2 (08:24→17:05)
[2024-03-02] MEDS: OPTI-GEN TAB 1 TABLET PO ×2 (08:25→17:06)
[2024-03-02] MEDS: FUROSEMIDE 40 MG TABLET PO (08:26)
[2024-03-02] MEDS: LORATADINE 10 MG TABLET PO (08:26)
[2024-03-02] MEDS: POTASSIUM CHLORIDE 20 MEQ PACKET (FOR LIQUID) 40 MEQ PO ×3 (08:26→17:05)
[2024-03-02] MEDS: APIXABAN 2.5 MG TABLET PO ×2 (08:26→21:31)
[2024-03-02] MEDS: PANTOPRAZOLE 40 MG TABLET PO (08:26)
[2024-03-02] MEDS: MAGNESIUM OXIDE 400 MG TABLET PO ×2 (08:26→17:06)
[2024-03-02] MEDS: TRIAMCINOLONE ACET 0.1% CREAM 15 GM TUBE 1 APPLIC TOPICAL (08:27)
[2024-03-02] MEDS: MUPIROCIN 2% OINT 22 GM TUBE 1 APPLIC TOPICAL (08:27)
[2024-03-02 09:03] LABS: Anion Gap 11 mmol/L (4-12); Blood Urea Nitrogen 51 mg/dL (7-17); Calcium 8.4 mg/dL (8.4-10.2); Carbon Dioxide 22 mmol/L (22-30); Chloride 101 mmol/L (98-107); Estimated CRCL calculation 21 ml/min; Estimated Glomerular Filt Rate 28; Glucose 129 mg/dL (65-110); Potassium 3.8 mmol/L (3.4-5.0); Sodium 134 mmol/L (137-145)
[2024-03-02] MEDS: ACETAMINOPHEN 325 MG TABLET 650 MG PO ×2 (09:36→21:31)
[2024-03-02 12:12] LABS: Glucose Point of Care 169 mg/dl (65-105)
--- NOTE | 2024-03-02 12:19 | PM.IMPN ---
Progress Note: A&P Assessment and Plan (1) Diverticulitis: Code(s): K57.92 - Diverticulitis of intestine, part unspecified, without perforation or abscess without bleeding Status: Acute Assessment and Plan: - CT abd/pelvis; Early acute diverticulitis of the rectosigmoid and large distended bladder. - Still with episodes of diarrhea, including overnight and this AM. - Tolerating diet well and we'll continue diabetic diet. - No WBC's or fevers for now. - Preliminary blood cultures NGTD. (2) Urinary tract infection: Qualifiers: Hematuria presence: without hematuria Urinary tract infection type: site unspecified Qualified Code(s): N39.0 - Urinary tract infection, site not specified Code(s): N39.0 - Urinary tract infection, site not specified Status: Acute Assessment and Plan: - UA suspicious for possible UTI. - Covered by current abx ( Ceftriaxone). - Continue to follow cultures on current abx. (3) Acute on chronic renal failure: Qualifiers: Acute renal failure type: unspecified Chronic kidney disease stage: stage 4 (GFR 15-29) Qualified Code(s): N17.9 - Acute kidney failure, unspecified; N18.4 - Chronic kidney disease, stage 4 (severe) Code(s): N17.9 - Acute kidney failure, unspecified; N18.9 - Chronic kidney disease, unspecified Status: Acute Assessment and Plan: - Possibly multifactorial secondary to dehydration from poor PO intake /+vs diuretics use +/vs infection. - Given fluid bolus in ER and albumin. - Lasix dose reduced to 40 mg daily from BID with BP trending normal lows. - Renal function appears to be stabilizing. - Continue to avoid nephrotoxics. - Meds dosing per renal function. (4) Urinary retention with incomplete bladder emptying: Code(s): R33.9 - Retention of urine, unspecified Status: Acute Assessment and Plan: - Possibly related to acute cystitis vs chronic retention vs infection vs other. - Wilkerson catheter placed on admission and we'll maintain for now. - Patient states she doesn't want to go home with the Wilkerson Catheter. - Consider voiding trials before discharge when pt activity improves. (5) Hypotension: Code(s): I95.9 - Hypotension, unspecified Status: Acute Assessment and Plan: - Possibly multifactorial; High doses or BP meds vs/+ infection vs /+ diuresis vs/+ poor PO intake. - Given fluid bolus in ER and 4 doses albumin. - BP levels improving but still trending normal lows. - Continue to monitor closely and adjust meds as needed. (6) Hypomagnesemia: Code(s): E83.42 - Hypomagnesemia Status: Acute Assessment and Plan: - Replaced and currently wnl. (7) Heart failure with reduced ejection fraction: Code(s): I50.20 - Unspecified systolic (congestive) heart failure Status: Acute Assessment and Plan: - Appears compensated. - ECHO 11/29 showed EF 30-35 %. - Continue diuresis with Lasix and Metolazone. - Continue to monitor closely for decompensation. - Monitor BP closely. (8) Chronic atrial fibrillation: Code(s): I48.20 - Chronic atrial fibrillation, unspecified Status: Acute Assessment and Plan: - Rate well controlled. - Continue Metoprolol and apixaban. (9) Insulin dependent type 2 diabetes mellitus: Code(s): E11.9 - Type 2 diabetes mellitus without complications; Z79.4 - care home (current) use of insulin Status: Acute Assessment and Plan: - Blood-glucose levels currently well controlled. - Continue low-dose SSI for now. Time Spent With Patient Time with patient: 15 - 25 minutes Subjective Date/time seen: 03/02/24 12:19 Patient states she had a diarrhea episode last night and early this AM. States had some nausea this AM but is tolerating her breakfast ok so far. Interval history: Patient seated bedrest enjoying breakfast with daughter bedside. Appears to be with some generalized weakness but appears to be tolerating meals well. Looks to be in no acute distress. Review of Systems Review of Systems: HEENT: Atraumatic, PERRL, EOMI, Moist mucosa. NECK: Supple. Lungs: Faint crackles to mala bases. Heart: RRR, no murmurs. Abdomen: Soft, non-tender, non-distended, +ve BS X4 Quadrants. Extremities: 2+ edema mala. Feet, 2+ edema mala. legs. Skin: Stage II-III sacral decubitus with macerated borders, no drainage noted. Wound to thoracic-spine region appears non-infected other, CDI dressing. Neuro: Fairly well oriented. No focal neuro deficits noted. Psych: Calm and co-operative. Objective Data Vital Signs Vital Signs: Vital Signs - 24 hr 03/01/24 14:20 03/01/24 16:04 03/01/24 20:00 Temperature 97.4 F L Pulse Rate 88 90 97 Respiratory Rate 16 Blood Pressure 94/65 L Pulse Oximetry 95 Oxygen Delivery Oxygen Flow Rate 03/01/24 20:00 03/01/24 20:28 03/01/24 20:44 Temperature 97.5 F L Pulse Rate 95 94 Respiratory Rate 17 Blood Pressure 118/58 L Pulse Oximetry 100 100 Oxygen Delivery Nasal Cannula Oxygen Flow Rate 2 03/02/24 00:00 03/02/24 04:00 03/02/24 05:27 Temperature 97.4 F L Pulse Rate 93 88 70 Respiratory Rate 18 Blood Pressure 108/61 Pulse Oximetry 100 Oxygen Delivery Oxygen Flow Rate 03/02/24 08:03 03/02/24 08:03 03/02/24 10:14 Temperature Pulse Rate 83 Respiratory Rate 18 Blood Pressure Pulse Oximetry 93 100 Oxygen Delivery Room Air Nasal Cannula Oxygen Flow Rate 3 03/02/24 11:16 Temperature Pulse Rate Respiratory Rate Blood Pressure Pulse Oximetry 93 Oxygen Delivery Room Air Oxygen Flow Rate Intake/Output Intake/Output: Intake & Output 02/28/24 02/29/24 03/01/24 03/02/24 23:59 23:59 23:59 23:59 Intake Total 1350 2670 690 Output Total 300 1700 700 Balance 1050 970 -10 Meds/Results Medications: Active Medications Generic Name Dose Route Start Last Admin Trade Name Freq PRN Reason Stop Dose Admin Acetaminophen 650 mg 02/29/24 22:09 03/02/24 09:36 Acetaminophen 325 Mg Tablet PO 650 mg Q6H PRN Administration pain 1-3 or fever Apixaban 2.5 mg 02/29/24 22:30 03/02/24 08:26 Apixaban 2.5 Mg Tablet PO 2.5 mg Q12HR LIO Administration Cholestyramine Resin 4 gm 03/01/24 21:00 03/01/24 22:03 Cholestyramine Light 4 Gm Powd.Pack PO 4 gm HS LIO Administration Dextrose 12.5 gm 03/01/24 09:47 Dextrose 50% 25 Gm/50 Ml Syringe IV PUSH PRN PRN Hypoglycemia Protocol Furosemide 40 mg 03/01/24 09:25 03/02/24 08:26 Furosemide 40 Mg Tablet PO 40 mg DAILY LIO Administration Glucagon 1 mg 03/01/24 09:47 Glucagon For Inj 1 Mg Vial IM PRN PRN Hypoglycemia Protocol Glucose 15 gm 03/01/24 09:47 Glucose Oral Gel 15 Gm Of Glucse In 37.5 Gm Tube PO PRN PRN Hypoglycemia Protocol Metronidazole 500 mg in 100 mls @ 100 mls/hr 02/29/24 22:00 03/02/24 07:25 Flagyl 500 Mg/Iso Soln 100 Ml IVPB Infused Q8H LIO Infusion Ceftriaxone Sodium 1 gm in 50 mls @ 100 mls/hr 02/29/24 21:00 03/01/24 23:47 Rocephin 1 Gm/Ns 50 Ml IVPB Infused Q24H LIO Infusion Dextrose 1,000 mls @ 100 mls/hr 03/01/24 09:47 Dextrose 5% 1,000 Ml IVPB PRN PRN Hypoglycemia Protocol Insulin Aspart 2 - 5 units 03/01/24 12:00 03/02/24 08:24 Insulin Aspart (*Bkc) 100 Units/Ml SUB-Q Not Given TIDWM LIO Protocol Insulin Aspart 1 - 2 units 03/01/24 21:00 03/01/24 20:55 Insulin Aspart (*Bkc) 100 Units/Ml SUB-Q Not Given HS LIO Protocol Loratadine 10 mg 03/01/24 09:00 03/02/24 08:26 Loratadine 10 Mg Tablet PO 10 mg DAILY LIO Administration Magnesium Oxide 400 mg 03/01/24 09:00 03/02/24 08:26 Magnesium Oxide 400 Mg Tablet PO 400 mg BID LIO Administration Metolazone 2.5 mg 03/02/24 08:30 03/02/24 08:24 Metolazone 2.5 Mg Tablet PO 2.5 mg SuTuThSa@0830,1630 LIO Administration Metoprolol Succinate 200 mg 03/01/24 21:00 03/01/24 20:44 Metoprolol Succinate Ext Rel 100 Mg Tabcr PO 200 mg HS LIO Administration Multivitamins/Minerals 1 tablet 03/01/24 09:00 03/02/24 08:25 Opti-Gen Tab PO 1 tablet BID LIO Administration Mupirocin 1 applic 03/01/24 09:00 03/02/24 08:27 Mupirocin 2% Oint 22 Gm Tube TOPICAL 1 applic DAILY LIO Administration Ondansetron HCl 4 mg 02/29/24 18:42 Ondansetron Inj 4 Mg/2 Ml Vial IV PUSH Q4H PRN Nausea Pantoprazole Sodium 40 mg 03/01/24 09:00 03/02/24 08:26 Pantoprazole 40 Mg Tablet PO 40 mg QAM LIO Administration Potassium Chloride 40 meq 03/01/24 09:00 03/01/24 17:03 Potassium Chloride 20 Meq Packet (For Liquid) PO 40 meq MoWeFr@0900,1700 LIO Administration Potassium Chloride 40 meq 03/02/24 09:00 03/02/24 08:26 Potassium Chloride 20 Meq Packet (For Liquid) PO 40 meq SuTuThSa@0900,1300,1700 LIO Administration Triamcinolone Acetonide 1 applic 03/01/24 09:00 03/02/24 08:27 Triamcinolone Acet 0.1% Cream 15 Gm Tube TOPICAL 1 applic DAILY LIO Administration Radiology Results: ITS Impressions Chest X-Ray 02/29/24 17:04 IMPRESSION: Mild pulmonary vascular congestion, with a left-sided pleural effusion. No focal infiltrate. Abdomen/Pelvis CT 02/29/24 17:35 IMPRESSION: Findings within the rectosigmoid colon which may represent early/acute diverticulitis. Otherwise, no acute intra-abdominal pathology. Innumerable nonacute findings, as detailed above. Labs Labs: Laboratory Results - last 24 hr 03/01/24 03/01/24 03/02/24 17:08 20:16 07:50 Sodium Potassium Chloride Carbon Dioxide Anion Gap BUN Creatinine Estim Creat Clear Calc Estimated GFR Glucose POC Capillary Glucose 169 H 182 H 145 H Calcium 03/02/24 03/02/24 08:41 12:04 Sodium 134 L Potassium 3.8 Chloride 101 Carbon Dioxide 22 Anion Gap 11 BUN 51 H Creatinine 1.73 H Estim Creat Clear Calc 21 Estimated GFR 28 L Glucose 129 H POC Capillary Glucose 169 H Calcium 8.4 Quality VTE Prophylaxis VTE prophylaxis: pharmacologic ordered Hospitalist [facility] Advance Care Plan I have confirmed that the patient's Advanced Care Plan is present, code status is documented, or surrogate decision maker is listed in patient medical record.: Yes Medication Reconciliation I have utilized all available resources to obtain, update and review the patients current medications (includes all prescriptions, OTC, herbals, cannabis, and nutritional supplements).: Yes
--- NOTE | 2024-03-02 13:16 | PCPTNOTE ---
Attempted to see for physical therapy evaluation, pt refused stating she is in too much pain and has diarrhea and does not want to get out of bed.
[2024-03-02 17:09] LABS: Glucose Point of Care 158 mg/dl (65-105)
--- OUTSIDE RECORDS SUMMARY | 2024-03-02 20:03 | XMS_ITS | Encounter Summary ---
Author Organization [facility] Address [address] [place] [address] Care Team Providers Care Spine Nurse Name Role Phone Gabriel Jurado MD Primary Care Provider [phone] Encounter Details Date Type Department Care Team (Late st Contact Info) Description 09/02/2017 Lab Requisition [facility] [address] [place] [address] Geovani De Jesus MD [address] [place] [address] Encounter for general adult medical examination without abnormal findings Social History Tobacco Use Types Packs/Day Years Used Date Smoking Tobacco: Never Assessed Comments Unknown Sex and Gender Information Value Date Recorded Sex Assigned at Not on file Legal Sex Female 12:21 PM CDT Gender Identity Not on file Sexual Orientation Not on file documented as of this encounter Plan of Treatment Not on file documented as of this encounter Procedures Procedure Name Priority Date/Time Associated Diagnosis Comments BASIC METABOLIC PANEL Routine 09/02/2017 6:10 AM CDT Encounter for general adult medical examination without abnormal findings documented in this encounter Results * (ABNORMAL) BASIC METABOLIC PANEL (09/02/2017 6:10 AM CDT) SODIUM 139 136 - 145 mmol/L 09/02/2017 11:20 AM CDT [facility] POTASSIUM 3.0(L) 3.5 - 5.0 mmol/L 09/02/2017 11:20 AM CDT [facility] CHLORIDE 93(L) 98 - 107 mmol/L 09/02/2017 11:20 AM [facility] CO2 30(H) 22 - 29 mmol/L 09/02/2017 11:20 AM [facility] CALCIUM 9.5 8.6 - 10.2 mg/dL 09/02/2017 11:20 AM [facility] BUN 54(H) 8 - 23 mg/dL 09/02/2017 11:20 AM [facility] CREATININE 1.92(H) 0.51 - 0.95 mg/dL 09/02/2017 11:20 AM [facility] Comment: The GFR result is not clinically significant on patients <18 or >70 years of age. GLUCOSE 43(LL) 74 - 99 mg/dL 09/02/2017 11:20 AM [facility] Comment:Results called to Cinthia Swartz by Ana George at 11:19 AM on 09/02/2017 and read back verified. GFR 25 mL/min/1.7 3 sq meter 09/02/2017 11:20 AM [facility] Comment: eGFR has not been validated for use in the elderly (> 70 years of age), women, patients with serious co-morbid conditions, or persons with extremes of body size or muscle mass and should also be interpreted with caution in patients with acute kidney failure, dialysis dependent patients, patients reporting exceptional dietary intake (e.g. vegetarian diet, high protein diets, creatine supplementation), and patients with severe liver disease. Based on National Kidney Disease Education Program If patient is , please refer to the GFR result. GFR, 30 mL/min/1.7 3 sq meter 09/02/2017 11:20 AM [facility] ANION GAP 16 8 - 16 mmol/L 09/02/2017 11:20 AM [facility] Blood Venipuncture / Unknown 09/02/2017 6:10 AM CDT 09/02/2017 9:51 AM CDT us Geovani De Jesus MD CHEMISTRY ORDERABLES Final R esult [facility]# [id number] [address] [id number] documented in this encounter Visit Diagnoses Diagnosis Encounter for general adult medical examination without abnormal findings Routine general medical examination at a health care facility documented in this encounter Care Teams Spine Nurse Relationship Specialty Start Date End Date Gabriel Jurado MD [address] [facility] [address] [place] [id number] PCP - General Family Practice 04/04/19 documented as of this encounter
--- OUTSIDE RECORDS SUMMARY | 2024-03-02 20:03 | XMS_ITS | Clinical Summary ---
Author Organization [facility] Address [address] [place] [address] Phone Care Team Providers Care Track Laying Machine Operator Name Role Phone Gabriel Jurado MD Primary Care Provider [phone] Allergies Active Allergy Reactions Criticality Noted Date Comments Adhes. Mcut-Quim-Bledzbwtguzt Hives 04/11/2019 Adhesive Tape-Silicones Hives 04/04/2019 Diazepam Hallucination 04/04/2019 Diphenhydramine Hcl Hepatic Dysfunction 020 Gabapentin Confusion Medium 04/04/2019 Reaction: CONFUSION, Hydrocodone Hallucination 04/04/2019 Levetiracetam Confusion Medium 04/04/2019 Reaction: CONFUSION, Levofloxacin Unknown 08/19/2017 Pregabalin Confusion Medium 04/04/2019 Reaction: CONFUSION, Zolpidem Nausea and Vomiting Low 08/19/2017 Medications metoprolol tartrate (LOPRESSOR) 50 mg tablet Take 100 mg by mouth. 8 Active metOLazone (ZAROXOLYN) 5 mg tablet TAKE 1 TABLET BY MOUTH ONCE DAILY 9 Active Magnesium 200 mg Tablet Take 400 mg by mouth. Active loratadine (Claritin) 10 mg tablet 10 mg. 5 Active insulin lispro (HumaLOG) 100 unit/mL vial Inject by subcutaneous injection. Active TOUJEO MAX U-300 SOLOSTAR 300 unit/mL (3 mL) Insulin Pen INJECT 35 UNITS SUBCUTANEOUSLY ONCE DAILY AT BEDTIME 9 Active furosemide (LASIX) 40 mg tablet Take 40 mg by mouth. 9 Active diltiaZEM (diltiazem sr) 240 mg Extended Release capsule TAKE 1 CAPSULE BY MOUTH ONCE DAILY 9 Active CARTIA XT 120 mg Controlled Delivery 24 hour capsule TAKE 1 CAPSULE BY MOUTH ONCE DAILY 0 Active ONETOUCH ULTRA BLUE TEST STRIP Strip USE TO TEST BLOOD SUGAR THREE TIMES DAILY 9 Active acetaminophen (Tylenol) 325 mg tablet 325 mg. 6 Active vit A/C/E ac/ZnOx/cupric oxide (VIT A-VIT C-VIT I-PSKO-VSWODS ORAL) Take by mouth. Activ e potassium chloride (KLOR-CON) 10 mEq Extended Release tablet Take 40 mEq by mouth. 9 Active Insulin [place], Disposable, 31 gauge x 5/16 Needle USED TO CHECK BLOOD SUGAR THREE TIMES DAILY. 9 Active pantoprazole (PROTONIX) 40 mg Tablet, Delayed Release (E.C.) Take 40 mg by mouth. Active oxybutynin chloride (DITROPAN XL) 10 mg Extended Release 24 hour tablet Take 10 mg by mouth. 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 Family History Medical History Relation Name Comments Cancer Daughter 1 Heart Disease Son 1 Heart Disease Son 3 Relation Name Status Comments Brother 1 Brother 2 Alive Daughter 1 Alive Daughter 2 Alive Daughter 3 Alive Daughter 4 Alive Father Mother Sister Son 1 Alive Son 2 Alive Son 3 Social History Tobacco Use Types Packs/Day Years Used Date Smoking Tobacco: Never Smokeless Tobacco: Never Alcohol Use Standard Drinks/Week Comments Never 0 (1 standard drink = 0.6 oz pur e alcohol) Comments No Sex and Gender Information Value Date Recorded Sex Assigned at Not on file Legal Sex Female 12:21 PM CDT Gender Identity Not on file Sexual Orientation Not on file Last Filed Vital Signs Vital Sign Reading Time Taken Comments Blood Pressure 95/70 04/11/2019 9:57 AM [facility] 1ST BP TAKE 85/64 HR 109 Pulse 101 04/11/2019 9:57 AM [facility] Temperature 36.4 ??C (97.6 ??F) 04/11/2019 9 :57 AM [facility] Respiratory Rate - - Oxygen Saturation 94% 04/11/2019 9:5 7 AM [facility] Inhaled Oxygen Concentration - - Weight 90.5 kg (199 lb 8 oz) 04/11/2019 9:57 AM [facility] Height 160 cm (5' 3 ) 04/11/2019 9:57 AM [facility] Body Mass Index 35.34 04/11/2019 9:57 AM [facility] Plan of Treatment Health Maintenance Due Date Last Done Comments DTAP/TDAP/TD VACCINES (1 - Tdap) 1954 ZOSTER VACCINE (1 of 2) 1984 OSTEOPOROSIS SCREENING 05/29/1999 PNEUMOCOCCAL VACCINE 65+ YEARS (2 of 2 - PCV) 07/19/19 05 07/19/2003 RSV VACCINE (60+ or ) (1 - 1-dose 75+ series) 2009 INFLUENZA VACCINE (#1) 2023 Care Teams Track Laying Machine Operator Relationship Specialty Start Date End Date Gabriel Jurado MD [address] [facility] [address] [place] [id number] PCP - General Family Practice 04/04/19
--- OUTSIDE RECORDS SUMMARY | 2024-03-02 20:03 | XMS_ITS | Data Portability ---
Author Organization [place] - [facility], Main Office Address [address] [place] [address] Care Team Providers Care [place] Programs Director Name Role Phone P [facility] FAX OTHER GABRIEL VELASQUEZ Primary Care Provider YVROSE SHAIKH Orthopedic Surgeon NOREEN HERRING Cleat Feeder DUY BONNER Urologist Assessment Encounter Date Assessment Date Assessment LastModified by Organization Details LastModified Time 01/21/2024 01/21/2024 Extend Keflex to a 10-day course. HgA1c pending from this AM. Labs (CBC, BMP, Mag, CRP, BNP) on Wednesday. Nursing to continue to send labs/weights/vi tals to cardiology Dr. Monteiro. They are managing diuretics. Not available 01/21/2024 12:24:34 01/24/2024 01/24/2024 Pt will d/c back to [facility] apartment at [address] with [facility] and family oversight on 01/25. CXR 2 view today (addendum: No acute process). Nursing to continue to send labs/weights/vi tals to cardiology Dr. Monteiro. They are calling today with update. Dr. Monteiro is managing diuretics. Not available 01/25/2024 10:15:21 02/25/2024 02/25/2024 Nursing to verify diuretics & KCl orders from cardiology from 02/23 as KCl dose will change on 02/27 but this was not communicated directly to nurses, only noted in a scanned-in document. Correct insulin to Humalog 3 units TID with meals with additional SSI, hold if BS <100. Nursing to wrap BLE with ac wraps then home velcro wraps, remove at bedtime. Nursing to send fax weights/vitals/ labs to cardiology Dr. Monteiro, who has historically managed diuretics. SWM to eval & treat. mai Not available 02/26/2024 11:41:02 02/27/2024 02/27/2024 labs (cmp, mg and CBC, probnp) 02/28/2024 - was going to check labs later in the week but due to confusion will get labs in am d/c SSI in the evening - continue this only with breakfast and lunch - continue humalog 3 unit TID and toujeo 10 units [email or web address] Not available 02/27/2024 21:25:16 02/28/2024 02/28/2024 Labs pending from this AM. Add TMC cream BID to bilateral thighs. Corrected sliding scale order to reflect home regimen. Fax weights & labs to Dr. Monteiro's office twice a week and f/u with phone call for any change in orders. mai Not available 02/28/2024 16:55:07 Plan of Treatment Reminders Order Date Submit Date Provider Last Modified By Organization Details Last Modified Time Details Appointments None recorded. Lab None recorded. Referral None recorded. Procedures None recorded. Surgeries None recorded. Imaging None recorded. Medication Orders metoprolol succinate ER 200 mg tablet,exte nded release 24 hr 2023 024 [facility] [address] [place], [address], 4 14:09:11 magnesium 400 mg (as magnesium oxide) tablet 2023 024 mai [facility] [address] [place], [address], 5 16:38:10 metolazone 2.5 mg tablet [address] [place] [address] [address] [place], [address], 5 11:22:30 potassium chloride ER 10 mEq tablet,exte nded release 2023 024 [facility] [address] [place], [address], 11:46:25 Patient TargetsNo targets recorded. Patient Instructions Encounter Date Encounter Id Patient Instructions Last Modified By Organization Details Last Modified Time 01/21/[id number] I spent {{ 32#}} minutes providing care to the patient today. More than 50% of that time was spent in discussing the expected course of the disease, discussing prognosis, coordinating care and counseling of the patient/family. Not available 01/21/2024 12:25:56 01/24/[id number] I spent {{ 40#}} minutes providing care to the patient today. More than 50% of that time was spent in discussing the expected course of the disease, discussing prognosis, coordinating care and counseling of the patient/family. The patient will be discharged home with home health orders of home health RN / PT / OT to evaluate and treat. The patient is homebound because of {{gait instability poor balance fall risk* respiratory difficulties cogn itive impairment disori entation severe pain wounds}} and is unable to leave home safely because {{requires use of an assistive device and assistance of another person to leave home requires considerable and taxing effort to leave home* of cognitive impairment}}. The patient requires home health nursing for instruction, observation and assessment; PT for training to restore safe independent functional ambulation in community; and OT for training to improve ability to fulfill ADLs. Please follow-up with your primary care provider within 1 week. Call your primary care provider for instructions or go to the emergency room for new or worsening symptoms. Not available 01/24/2024 14:09:43 02/25/2024 [id number] I spent {{ 60#}} minutes providing care to the patient today. More than 50% of that time was spent in discussing the expected course of the disease, discussing prognosis, coordinating care and counseling of the patient/family. Not available 02/25/2024 17:40:59 02/27/2024 [id number] I spent {{ >55#} } minutes providing care to the patient today. More than 50% of that time was spent in discussing the expected course of the disease, discussing prognosis, coordinating care and counseling of the patient/family. I spent {{16* 17 18 19 20 21 22 23 24 25}} minutes counseling and discussing advance directives and/or end of life care planning and decisions with the {{patient surroga te patient and surrogate*}} today. I reviewed the current relevant diagnoses, treatment options, natural history, and prognosis and clarified the patient's goals of care. code status DNR - see above [email or web address] Not available 02/27/2024 21:31:44 02/28/2024 [id number] I spent {{ 36#}} minutes providing care to the patient today. More than 50% of that time was spent in discussing the expected course of the disease, discussing prognosis, coordinating care and counseling of the patient/family. Not available 02/28/2024 16:54:43 Reason for Referral None Reported. Results Created Date Observation Date Name Description Value Unit Range Abnormal Flag Note LastModifiedBy Organization Detail LastModifiedTime 01/24/2001/24/2024 XR, chest , 2 view No observ ation record ed. [facility] [address], [place], [address], 01/25/2024 10:15:34 Result Notes None recorded. Procedures Surgical History Date Name Laterality Status Provider Name and Address Organization Details Recorded Time bilateral cataract extraction completed Chad Coates [facility] 01/04/2024 01:16:01 cholecystectomy completed Chad Coates [facility] 01/04/2024 01:16:08 Hysterectomy/bladde r repair completed Chad Coates [facility] 01/04/2024 01:16:17 extended right hemicolectomy completed Chad Coates [facility] 01/04/2024 01:16:43 Imaging Results Imaging Date Name Status LastModified by Organiz ation Details LastModified Time 01/24/2024 XR, chest, 2 view completed [facility] [address], [place], [address], 01/25/2024 10:15:34 Procedure Notes None recorded. Medical Equipment None Reported. Allergies Allergen ID Allergen Name Allergen Category Reaction Reaction Severity Criticality Documentation Date Start Date Code Code System Note Provider Name and Address Organization Details Recorded Time [id number] 2824e cetirizin e medicatio n Not available Not available Not available 01/01/2024 76914 RxNorm Not Available Not Available Not Available [id number] [id number] 2824e diazepam medicatio n Not available Not available Not available 01/01/2024 3322 RxNorm Not Available Not Available Not Available [id number] 135964622 [id number] 2824e gabapenti n medicatio n Not available Not available Not available 01/01/2024 21588 RxNorm Not Available Not Available Not Available [id number] 705108999 [id number] 2824e hydrocodo ne Not available Not available Not available Not available 01/01/2024 5489 RxNorm Not Available Not Available Not Available [id number] 2824e Levaquin medicatio n Not available Not available Not available 01/01/2024 39263 2 RxNorm Not Available Not Available Not Available [id number] [id number] 2824e levetirac etam medicatio n Not available Not available Not available 01/01/2024 19656 7 RxNorm Not Available Not Available Not Available [id number] 2824e Lyrica medicatio n Not available Not available Not available 01/01/2024 21527 1 RxNorm Not Available Not Available Not Available [id number] 2824e zolpidem medicatio n Not available Not available Not available 01/01/2024 79754 RxNorm Not Available Not Available Not Available [id number] [id number] 2824e adhesive tape environme nt,medica tion Not available Not available Not available 01/01/2024 31849 UNK Not Available Not Available Not Available Medications Name Sig Start Date Stop Date Status Note LastModified by Organization Details LastModified Time furosemid e 40 mg tablet Take 1 tablet twice a day by oral route. active Not Available Not Available No t Available metolazon e 2.5 mg tablet Take 1 tab by mouth four times a week. active TuThSaSu Not Available Not Available No t Available acetamino phen 325 mg tablet Take 2 tablets every 6 hours by oral route as needed. active Not Available Not Available No t Available Protonix 40 mg tablet,de layed release Take 1 tablet every day by oral route. active Not Available Not Available No t Available metoprolo l succinate ER 50 mg tablet,ex tended release 24 hr Take 3 tablets every day by oral route. 01/19 completed Not Available Not Available Not Available metoprolo l succinate ER 200 mg tablet,ex tended release 24 hr Take 1 tablet every day by oral route. 2023 active Not Available Not Available Not Avai lable metolazon e 5 mg tablet Take 1 tablet every day by oral route as needed. 01/19 completed give with addition al KCl 40 meq dose. Not Available Not Available Not Available potassium chloride ER 10 mEq tablet,ex tended release Take 4 tablets twice a day by oral route. 02/25 completed Not Available Not Available Not Available triamcino lone acetonide 0.1 % topical cream Apply 1 applicat ion twice a day by topical route. active Not Available Not Available No t Available Cholestyr amine Light 4 gram powder for susp in a packet Take 1 packet every day by oral route. active Not Available Not Available No t Available tamsulosi n 0.4 mg capsule Take 1 capsule every day by oral route. 01/02 completed Not Available Not Available Not Available cephalexi n 500 mg tablet Take 1 tablet every 8 hours by oral route for 7 days. 02/23 completed Stop Date: 01/24 Not Available Not Available Not Available nystatin 100,000 unit/gram topical powder Apply 1 applicat ion twice a day by topical route. active Not Available Not Available No t Available loratadin e 10 mg tablet Take 1 tablet every day by oral route. active Not Available Not Available No t Available Florastor 250 mg capsule Take 1 capsule twice a day by oral route for 14 days. 02/23 completed Stop Date: 01/30 Not Available Not Available Not Available mupirocin 2 % ointment topical kit Apply 1 applicat ion every day by topical route. active Not Available Not Available No t Available Humalog KwikPen (U-100) Insulin 100 unit/mL subcutane ous Inject 3 units by subq route three times a day with meals. Inject 0-6 units by subq route with breakfas t and lunch as needed per sliding scale. active Hold if blood sugar <130. Not Available Not Available Not Available Eliquis 2.5 mg tablet Take 1 tablet twice a day by oral route. active Not Available Not Available No t Available PreserVis ion AREDS-2 250 mg-90 mg-40 mg-1 mg capsule Take 1 capsule twice a day by oral route. active Not Available Not Available No t Available potassium chloride ER 20 mEq tablet,ex tended release Take 2 tablets (40 meq) by mouth twice a day. Four days a week (TuThSaS u), give addition al 2 tablets (40 meq) by mouth concurre ntly with Metolazo ne. active Not Available Not Available No t Available insulin glargine (U-300) conc. 300 unit/mL (1.5 mL) subcutane ous pen Inject 10 units every day by subcutan eous route. 01/02 completed Not Available Not Available Not Available Toujeo Max U-300 SoloStar 300 unit/mL (3 mL) subcutane ous insulin pen Inject 10 units every day by subcutan eous route. active Not Available Not Available No t Available magnesium 400 mg (as magnesium oxide) tablet Take 1 tablet twice a day by oral route. active Not Available Not Available No t Available Vitals Date Recorded Body height Heart rate Body temperature Respiratory rate Oxygen saturation Oxygen saturation in Arterial blood by Pulse oximetry Body mass index (BMI) Body weight Systolic blood pressure Diastolic blood pressure Provider Name and Address Organization Details Last Updated DateTime 4 160.02 cm 94 /min 97.9 [degF] 20 /min 95 % 95 % 37 kg/m2 45734.3 7 g 118 mm[Hg] 71 mm[Hg] Concepcion Faust, [address] [address] [place], [address], [place] [facility] 4 10:33:39 Date Recorded Body height Heart rate Body temperature Respiratory rate Oxygen saturation Oxygen saturation in Arterial blood by Pulse oximetry Body mass index (BMI) Body weight Systolic blood pressure Diastolic blood pressure Provider Name and Address Organization Details Last Updated DateTime 4 160.02 cm 89 /min 98.2 [degF] 20 /min 96 % 96 % 37.3 kg/m2 43483.8 3 g 117 mm[Hg] 65 mm[Hg] [place] [address] [place], [address], [place] [facility] 4 13:28:03 Date Recorded Body height Heart rate Body temperature Respiratory rate Oxygen saturation Oxygen saturation in Arterial blood by Pulse oximetry Systolic blood pressure Diastolic blood pressure Provider Name and Address Organization Details Last Updated DateTime 5 160.02 cm 85 /min 97.8 [degF] 18 /min 97 % 97 % 100 mm[Hg] 61 mm[Hg] [place] [address] [place], [address], [facility] 5 17:29:41 Date Recorded Body height Body mass index (BMI) Body weight Heart rate Body temperature Respiratory rate Oxygen saturation Oxygen saturation in Arterial blood by Pulse oximetry Inhaled oxygen flow rate Systolic blood pressure Diastolic blood pressure Provider Name and Address Organization Details Last Updated DateTime 5 160.02 cm 36 kg/m2 30596.0 5 g 103 /min 98.2 [degF] 18 /min 99 % 99 % 2 L/min 117 mm[Hg] 54 mm[Hg] [place] [address] [place], [address], [place] [facility] 5 20:39:23 Date Recorded Body height Respiratory rate Body mass index (BMI) Body weight Heart rate Body temperature Oxygen saturation Oxygen saturation in Arterial blood by Pulse oximetry Systolic blood pressure Diastolic blood pressure Provider Name and Address Organization Details Last Updated DateTime 5 160.02 cm 18 /min 36.7 kg/m2 39261.3 4 g 80 /min 98.2 [degF] 99 % 99 % 95 mm[Hg] 56 mm[Hg] [place] [address] [place], [address], [place] [facility] 5 16:36:21 Social History Question Answer Notes LastModified by Organizat ion Details LastModified Time Tobacco Smoking Status Never Smoker Chad Coates null, [place] - [facility] 01/04/2024 01:17:40 What Is Your Level Of Alcohol Consumption? None Information not available 01/04/2024 What Is Your Code Status? DNR [email or web address] Information not available 01/01/2024 Do You Have A Medical Power Of Gleason Operator? Yes Katelyn Bird [email or web address] Information not available 01/01/2024 What Was The Date Of Your Most Recent Tobacco Screening? 02/25/2024 Information not available 02/25/2024 What Is Your Relationship Status? Information not available 02/25/2024 Do You Use Any Illicit Or Recreational Drugs? No Information not available 01/04/2024 Sex: Unknown Functional Status None recorded. Mental Status None recorded. Family History Relationship Description Onset Age of this Age Resolved Age Notes LastModified by Organization Details LastModified Time Mother Disorder of respiratory system [email or web address] Not available 2023 01:18:05 Unspecified Relation History of cardiovascul ar disease [email or web address] Not available 01/03 01:18:17 Medical History Condition Response Psychiatric -- Anxiety Disorder Y Diabetes Y Deep Vein Thrombosis (DVT) Y Macular Degeneration Y Atrial Fibrillation Y Cancer -- Colon / Rectum Y Incontinence -- Urinary Y Congestive Heart Failure (CHF) Y Chronic Kidney Disease (CKD) Y Ulcer -- Venous Stasis Y Transient ischemic attack (TIA) Y Anemia Y GERD / Reflux Y Lymphedema Y Neuropathy Y Sleep Apnea / CARLY Y Hypertension Y Gynecological HistoryNo gynecological history recorded. Obstetrics History GPAL:G 0 P 0 0 0 0 Past Encounters Encounter ID Performer Location Encounter Start Date Encounter Closed Date Diagnosis/Indication Diagnosis SNOMED-CT Code Diagnosis ICD10 Code Diagnosis Note [id number] Concepcion Faust NP [place] [address] [place] [address] 01/03/2024 13:52:44 01/14/2024 11:55:25 Closed fracture of triquetral bone of right wrist [id number] 1408826 S62.114D Specific injury unclear, imaging noted questiona ble small acute fracture of dorsal triquetrum on lateral view. She has been placed in splint. Per daughter, she is WBAT but this cannot be confirmed in hospital records.Co ntact Dr. Shaikh to clarify WB status of [R] wrist and F/U recommenda tions.Cont inue therapies. Add PRN APAP per standing orders. Pain in fi nger of left hand [id number] 94448 M79.645 Again, no specific injury but she is noted to have reduced ROM, tenderness , and pain to her left ring finger. No heat/warmt h.Obtain Xray [L] hand (dx 4th finger edema, pain).Add PRN APAP per standing orders. 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 Continue Metoprolol , Lasix, & KCl.Contin ue to trend blood pressures, monitor lytes and renal function, and adjust meds as clinically indicated. Chronic ki dney disease stage 3 192630788 N18.30 Per history. Baseline Cr unclear.Tr end labs and avoid additional nephrotoxi ns. 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 Has been discharged on usual OP regimen of Lasix 40 mg BID.Appear s euvolemic at present. Continue Lasix & KCl.Contin ue to trend blood pressures, monitor lytes and renal function, and weights and adjust meds as clinically indicated. Acute urin kaitlyn tract infection 044549132 N39.0 12/19 Urine cx grew K. pneumonia, tripp-sensit yuri. She was treated with 3 days of IV antibiotic s and discharged on 2 days of Augmentin. Symptoms have resolved. Monitor for recurrence . Retention of urine 48424 4002 R33.9 Pt was noted to have retention while initially inpatient. She failed a voiding trial and was started on Tamsulosin . Pt discharged with a catheter and daughter did not start pt on Tamsulosin . She moved f/u with Dr. Bonner up, was seen in office, and catheter was removed without further concerns. As such, Katelyn does not want her mother taking Tamsulosin .Monitor voiding -- no concerns today per pt.F/U with Dr. Duy Bonner PRN. Atrial fib rillation with rapid ventricular response 6834138606 50548 I48.91 Stable at present with periodic HRs in low 100s. Continue Metoprolol , dose increased while inpatient. Fax HR & BPs weekly to Dr. Monteiro for adjustment in cardiac medication s.Cards FORMING ACID DUMPER Noreen Herring (with Dr. Monteiro). Hyperkalemia 56540086 E8 7.5 Daughter Katelyn notes she runs chronicall y on the high end of normal and that Dr. Monteiro monitors this.Marla nue supplement and trend level closely. Type 2 andrew betes mellitus 20769803 E11.69 Per daughter Katelyn, well-contr olled on current regimen.Co ntinue Toujeo 10 units daily and insulin lispro 3 units TID with meals with additional SSI. No insulin is given if BS is <100.Monit or blood sugars and continue LCS diet. Obstructiv e sleep apnea syndrome 95063810 G47.33 Noncomplia nt with CPAP. Instead utilizes 2L NC ad noc. Sleep rela andrea hypoxemia 2523555752 70655 G47.36 SEE ABOVE... Not for resuscitation 30 9904045 Z66 DNR. Confirmed today. Physical deconditioning 1470848684 9102 R68.89 Related to age, recent inpatient stay, and multiple comorbidit ies.Contin ue PT/OT and monitor progress. Goal is for pt to return ILF at [place].Ad ding PRN APAP for pain.Marla nue Eliquis for DVT prophylaxi s.Catharti cs available per standing orders for constipati on. Gastroesop hageal reflux disease without esophagitis 509813421 K21.9 Stable. Continue Protonix. Hypomagnesemia 314376352 E83.42 Presumed stable. Continue supplement and trend level. Allergic rhinitis 117111 04 J30.9 Stable. Continue Loratadine for now -- consider trialling changing to PRN. At [facility] ed risk of polypharmacy 308939149 Z91.89 Need to confirm dx warranting use of Cholestyra mine. [id number] Shonda Reaves, [facility] [address] [place] [address] 01/04/2024 18:35:19 01/14/2024 11:56:16 Closed fracture of triquetral bone of right wrist [id number] 3471587 S62.114D Specific injury unclear, imaging noted questiona ble small acute fracture of dorsal triquetrum on lateral view. She has been placed in splint.Per ortho (Dr. Shaikh) WBATContin ue therapies. Continue PRN APAP per standing orders. Pain in fi nger of left hand 4173887723 03819 M79.645 Again, no specific injury but she is noted to have reduced ROM, tenderness , and pain to her left ring finger. No heat/warmt h.Xray [L] hand was done yesterday without acute fracture notedPRN APAP per standing orders. Atrial fib rillation with rapid ventricular response 8879729968 88069 I48.91 Stable at present with periodic HRs in low 100s. Continue Metoprolol , dose increased while inpatient. Fax HR & BPs weekly to Dr. Monteiro for adjustment in cardiac medication s.Cards FORMING ACID DUMPER Noreen Herring (with Dr. Monteiro). 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 Has been discharged on usual OP regimen of Lasix 40 mg BID.Contin ue Lasix & KCl.Contin ue to trend blood pressures, monitor lytes and renal function, and weights and adjust meds as clinically indicated. Acute urin kaitlyn tract infection 925134661 N39.0 12/19 Urine cx grew K. pneumonia, tripp-sensit yuri. She was treated with 3 days of IV antibiotic s and discharged on 2 days of Augmentin. Symptoms have resolved. Monitor for recurrence . 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 Continue Metoprolol , Lasix, & KCl.Contin ue to trend blood pressures, monitor lytes and renal function, and adjust meds as clinically indicated. Hyperkalemia 52033065 E8 7.5 Daughter Katelyn notes she runs chronicall y on the high end of normal and that Dr. Monteiro monitors this.01/02 K 5.8 - KCL dose has been adjusted by cardiology to 40 meq BIDf/u labs are ordered for am Chronic ki dney disease stage 3 672316904 N18.30 Per history. Baseline Cr unclear.Tr end labs and avoid additional nephrotoxi ns. Type 2 andrew betes mellitus 35802233 E11.69 Per daughter Katelyn, well-contr olled on current regimen.Co ntinue Toujeo 10 units daily and insulin lispro 3 units TID with meals with additional SSI. No insulin is given if BS is <100.Monit or blood sugars and continue LCS diet. Hypomagnesemia 123484803 E83.42 Presumed stable. Continue supplement and trend level. Gastroesop hageal reflux disease without esophagitis 429564042 K21.9 Stable. Continue Protonix. Obstructiv e sleep apnea syndrome 39625847 G47.33 Noncomplia nt with CPAP. Instead utilizes 2L NC at nighttime Sleep rela andrea hypoxemia 3117503143 60337 G47.36 SEE ABOVE... Allergic rhinitis 931057 04 J30.9 Stable. Continue Loratadine for now -- consider trialling changing to PRN. Retention of urine 06713 4002 R33.9 Pt was noted to have retention while initially inpatient. She failed a voiding trial and was started on Tamsulosin . Pt discharged with a catheter and daughter did not start pt on Tamsulosin . She moved f/u with Dr. Bonner up, was seen in office, and catheter was removed without further concerns. As such, Katelyn does not want her mother taking Tamsulosin .Monitor voiding -- no concerns today per pt.F/U with Dr. Duy Bonner PRN. At [facility] ed risk of polypharmacy [id number] Z91.89 unclear dx warranting use of Cholestyra mine as no history of documented hyperlipid emia but reported as home medication Physical deconditioning [id number] 9102 R68.89 Related to age, recent inpatient stay, and multiple comorbidit ies.Contin ue PT/OT and monitor progress. Goal is for pt to return ILF at [facility].MO N APAP for pain.Marla nue Eliquis for DVT prophylaxi s.Catharti cs available per standing orders for constipati on. Shonda Reaves, DO [facility] [address] [place] [address] 01/09/2024 22:59:22 01/14/2024 11:57:17 Closed fracture of triquetral bone of right wrist [id number] S62.114D Specific injury unclear, imaging noted questiona ble small acute fracture of dorsal triquetrum on lateral view. She has been placed in splint.Per ortho (Dr. Shaikh) WBATContin ue therapies. Continue PRN APAP per standing orders. Pain in fi nger of left hand [id number] 26930 M79.645 Again, no specific injury but she is noted to have reduced ROM, tenderness , and pain to her left ring finger. No heat/warmt h.Xray [L] hand was done yesterday without acute fracture notedPRN APAP per standing orders. Atrial fib rillation with rapid ventricular response [id number] 29619 I48.91 Stable at present with periodic HRs in low 100s. Continue Metoprolol , dose increased while inpatient. Fax HR & BPs weekly to Dr. Monteiro for adjustment in cardiac medication s.Cards [employer] Noreen Herring (with Dr. Monteiro). 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 Has been discharged on usual OP regimen of Lasix 40 mg BID.Contin ue Lasix & KCl.the patient takes metolazone 5 mg daily prn as an outpatient which has been resumed as of 01/07Conti nue to trend blood pressures, monitor lytes, renal function and weights - will await recommenda tions from [facility] [employer] for further medication adjustment s at this time Acute urin kaitlyn tract infection 771343119 N39.0 12/19 Urine cx grew K. pneumonia, tripp-sensit yuri. She was treated with 3 days of IV antibiotic s and discharged on 2 days of Augmentin. Symptoms have resolved. 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 Continue Metoprolol , Lasix, & KCl.Contin ue to trend blood pressures, monitor lytes and renal function, and adjust meds as clinically indicated. Hyperkalemia 86926854 E8 7.5 Daughter Katelyn notes she runs chronicall y on the high end of normal and that Dr. Monteiro monitors this.01/02 K 5.8 - KCL dose has been adjusted by cardiology to 40 meq BIDf/u potassum levels WNL Chronic ki dney disease stage 3 079378128 N18.30 Per history. Baseline Cr unclear.Tr end labs and avoid additional nephrotoxi ns. Type 2 andrew betes mellitus 65238099 E11.69 Per daughter Katelyn, well-contr olled on current regimen.Co ntinue Toujeo 10 units daily and insulin lispro 3 units TID with meals with additional SSI. No insulin is given if BS is <100.Monit or blood sugars and continue LCS diet. Hypomagnesemia 450261422 E83.42 Presumed stable. Continue supplement and trend level. Gastroesop hageal reflux disease without esophagitis 756146773 K21.9 Stable. Continue Protonix. Obstructiv e sleep apnea syndrome 20504671 G47.33 Noncomplia nt with CPAP. Instead utilizes 2L NC at nighttime Sleep rela andrea hypoxemia 3360948950 01939 G47.36 SEE ABOVE... Allergic rhinitis 373876 04 J30.9 Stable. Continue Loratadine for now -- consider trialling changing to PRN. Retention of urine 40325 4002 R33.9 Pt was noted to have retention while initially inpatient. She failed a voiding trial and was started on Tamsulosin . Pt discharged with a catheter and daughter did not start pt on Tamsulosin . She moved f/u with Dr. Bonner up, was seen in office, and catheter was removed without further concerns. As such, Kateyln does not want her mother taking Tamsulosin .Monitor voiding -- no concerns today per pt.F/U with Dr. Duy Bonner PRN. At [facility] ed risk of polypharmacy 610509575 Z91.89 unclear dx warranting use of Cholestyra mine as no history of documented hyperlipid emia but reported as home medication Physical deconditioning [id number] 9102 R68.89 Related to age, recent inpatient stay, and multiple comorbidit ies.Contin ue PT/OT and monitor progress. Goal is for pt to return ILF at [facility].MO N APAP for pain.Marla nue Eliquis for DVT prophylaxi s.Catharti cs available per standing orders for constipati on. Multiple o pen wounds of lower leg 184137498 S81.802A new ruptured bullae noted to the LLE likely related to edemamonit or closely for secondary infectionh ave ordered daily cleanse and foam dressingco ntinue compressio n wraps/leg elevation/ diuretics [id number] Concepcion Faust NP PAC [facility] [address] [place] [address] 01/12/2024 13:17:28 01/18/2024 00:38:06 Closed fracture of triquetral bone of right wrist [id number] 4239743 S62.114D Specific injury unclear, imaging noted questiona ble small acute fracture of dorsal triquetrum on lateral view. She has been placed in splint.Per ortho (Dr. Shaikh) WBAT.Marla nue therapies. Continue PRN APAP per standing orders.F/U with Dr. Shaikh as directed. Pain in fi nger of left hand [id number] 36670 M79.645 Again, no specific injury but she was noted to have reduced ROM, tenderness , and pain to her left ring finger. No heat/warmt h. Xray [L] hand was without acute fracture.S ymptoms have nearly resolved at this point, although remains with mild amount of edema to PIP region.PRN APAP per standing orders. Atrial fib rillation with rapid ventricular response 8273431416 24147 I48.91 Stable at present with periodic HRs in low 100s. Continue Metoprolol , dose increased while inpatient. Fax HR & BPs weekly to Dr. Monteiro for adjustment in cardiac medication s.Cards [employer] Noreen Herring (with Dr. Monteiro). 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 Has been discharged on usual OP regimen of Lasix 40 mg BID. Added PRN Metolazone as pt utilizes this as OP, as well, for increased edema.Cont inue Lasix & KCl.She received 5 mg Metolazone from 01/07-01/09 . She continues on PO KCl, f/u labs yesterday noted drop in level to 3.1. Increased KCl to TID x 3 days, then will return to BID dosing. Expect this to normalize since Metolazone has not been given the last 2 days.Weigh t has only improved 2 lbs and edema has not much improved.C ontinue BLE compressio n wraps.Cont inue to trend blood pressures, monitor lytes, renal function and weights - will await recommenda tions from cards for further medication adjustment s at this time Acute urin kaitlyn tract infection 235449518 N39.0 12/19 Urine cx grew K. pneumonia, tripp-sensit yuri. She was treated with 3 days of IV antibiotic s and discharged on 2 days of Augmentin. Symptoms have resolved. Monitor for recurrence .Discussed with patient avoidance of Ditropan going forward. 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 Continue Metoprolol , Lasix, & KCl.SEE ABOVE regarding PRN Metolazone .Continue to trend blood pressures, monitor lytes and renal function, and adjust meds as clinically indicated. Chronic ki dney disease stage 3 490112432 N18.30 Per history. Baseline Cr unclear.Tr end labs and avoid additional nephrotoxi ns. Type 2 andrew betes mellitus 34114695 E11.69 Per daughter Katelyn, well-contr olled on current regimen.Co ntinue Toujeo 10 units daily and insulin lispro 3 units TID with meals with additional SSI. No insulin is given if BS is <100.Monit or blood sugars and continue LCS diet. Hypomagnesemia 674449617 E83.42 LEvel low. Increasing supplement to BID and will continue to trend level. Gastroesop hageal reflux disease without esophagitis 398586494 K21.9 Stable. Continue Protonix. Obstructiv e sleep apnea syndrome 55727366 G47.33 Noncomplia nt with CPAP. Instead utilizes 2L NC at nighttime Sleep rela andrea hypoxemia 7033026544 94614 G47.36 SEE ABOVE... Allergic rhinitis 950542 04 J30.9 Stable. Continue Loratadine for now -- consider trialling changing to PRN. Retention of urine 06893 4002 R33.9 Pt was noted to have retention while initially inpatient. She failed a voiding trial and was started on Tamsulosin . Pt discharged with a catheter and daughter did not start pt on Tamsulosin . She moved f/u with Dr. Bonner up, was seen in office, and catheter was removed without further concerns. As such, Katelyn does not want her mother taking Tamsulosin .Monitor voiding -- no concerns today per pt.Discuss ed with patient avoidance of Ditropan going forward.F/ U with Dr. Duy Bonner PRN. At [facility] risk of polypharmacy 106472406 Z91.89 Unclear dx warranting use of Cholestyra mine as no history of documented hyperlipid emia but reported as home medication . Multiple o pen wounds of lower leg 413134783 S81.802A Monitor closely for secondary infection. No concerns per nursing today.Cont inue compressio n wraps/leg elevation/ diuretics. Physical deconditioning 0764781224 9102 R68.89 Related to age, recent inpatient stay, and multiple comorbidit ies.Contin ue PT/OT and monitor progress. Goal is for pt to return ILF at [facility].MO N APAP for pain.Marla nue Eliquis for DVT prophylaxi s.Catharti cs available per standing orders for constipati on. Concepcion Faust NP [facility] [address] [place] [address] 01/13/2024 10:03:21 01/18/2024 00:39:53 Minimal cognitive impairment 083677412 R41.89 SEE ABOVE... Hallucinations 0211099 R 44.3 Long-term and recurrent. Pt notes typically occurs at night and she believes are secondary to sleep medication s. As such, she does not want to take any for her insomnia. She notes the only medication that did not cause hallucinat ions was Melatonin, but that this medication was ineffectiv e.ST to eval & treat as staff also notes some incidents of memory concerns.M onitor for reversible causes.Cou ld consider checking UA should symptoms arise. 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 Has been discharged on usual OP regimen of Lasix 40 mg BID. Added PRN Metolazone as pt utilizes this as OP, as well, for increased edema.Cont inue Lasix & KCl.She received 5 mg Metolazone from 01/07-01/09 . She continued on PO KCl, but f/u labs noted drop in level to 3.1. Increased KCl to TID x 3 days, then will return to BID dosing. Expect this to normalize since Metolazone has not been given the last 2 days.Weigh t only improved 3 lbs and edema not improved.C ontinue BLE compressio n wraps. Changing to a tighter variation including ac wraps and pt's OP velcro wraps.Cont inue to encourage BLE elevation at rest.Marla nue to trend blood pressures, monitor lytes, renal function and weights - will await recommenda tions from cards for further medication adjustment s at this time Closed fra cture of triquetral bone of right wrist [id number] 4305993 S62.114D Specific injury unclear, imaging noted questiona ble small acute fracture of dorsal triquetrum on lateral view. She has been placed in splint.Per ortho (Dr. Shaikh) WBAT.Marla nue therapies. Continue PRN APAP per standing orders.F/U with Dr. Shaikh as directed. Pain in fi nger of left hand 3686808521 20099 M79.645 Again, no specific injury but she was noted to have reduced ROM, tenderness , and pain to her left ring finger. No heat/warmt h. Xray [L] hand on 01/03 was without fracture.S ymptoms have nearly resolved at this point, although remains with mild amount of edema to PIP region.Con tinue PRN APAP per standing orders. Atrial fib rillation with rapid ventricular response 8134868504 15073 I48.91 Stable at present with periodic HRs in low 100s. Continue Metoprolol , dose increased while inpatient. Faxing weights, HR, & BPs weekly to Dr. Monteiro.Car ds [employer] Noreen Herring (with Dr. Monteiro). Acute urin kaitlyn tract infection 659522508 N39.0 12/19 Urine cx grew K. pneumonia, tripp-sensit yuri. She was treated with 3 days of IV antibiotic s and discharged on 2 days of Augmentin. Symptoms have resolved. Monitor for recurrence .Discussed with patient avoidance of Ditropan going forward. 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 Continue Metoprolol , Lasix, & KCl.SEE ABOVE regarding PRN Metolazone .Continue to trend blood pressures, monitor lytes and renal function, and adjust meds as clinically indicated. Chronic ki dney disease stage 3 963688810 N18.30 Per history. Baseline Cr unclear.Tr end labs and avoid additional nephrotoxi ns. Type 2 andrew betes mellitus 65293643 E11.69 Per daughter Katelyn, well-contr olled on current regimen.Co ntinue Toujeo 10 units daily and insulin lispro 3 units TID with meals with additional SSI. No insulin is given if BS is <100.Monit or blood sugars and continue LCS diet. Hypomagnesemia 153187315 E83.42 Level low. Increasing supplement to BID and will continue to trend level. Gastroesop hageal reflux disease without esophagitis 843821381 K21.9 Stable. Continue Protonix. Obstructiv e sleep apnea syndrome 18696218 G47.33 Noncomplia nt with CPAP. Instead utilizes 2L NC at nighttime Sleep rela andrea hypoxemia 6909082326 25581 G47.36 SEE ABOVE... Allergic rhinitis 953425 04 J30.9 Stable. Continue Loratadine for now -- consider trialling changing to PRN. Retention of urine 07314 4002 R33.9 Pt was noted to have retention while initially inpatient. She failed a voiding trial and was started on Tamsulosin . Pt discharged home with a catheter and daughter did not start pt on Tamsulosin . She moved f/u with Dr. Bonner up, was seen in office, and catheter was removed without further concerns. As such, Katelyn does not want her mother taking Tamsulosin .Monitor voiding -- no concerns today per pt.Discuss ed with patient avoidance of Ditropan going forward.F/ U with Dr. Duy Bonner PRN. At [facility] ed risk of polypharmacy 488807043 Z91.89 Unclear dx warranting use of Cholestyra mine as no history of documented hyperlipid emia but reported as home medication . Physical deconditioning 2796988412 9102 R68.89 Related to age, recent inpatient stay, and multiple comorbidit ies.Contin ue PT/OT and monitor progress. Goal is for pt to return ILF at [facility].Co ntinue PRN APAP for pain.Marla nue Eliquis for DVT prophylaxi s.Catharti cs available per standing orders for constipati on. Stasis teja matitis and venous ulcer of lower extremity due to chronic peripheral venous hypertension 7975902953 30150 L97.909 SEE ABOVE...Co ntinue foam dressings daily to bilateral shins. Right cooper lesion is scabbed over and nearly healed. Left skin lesion was formerly a blister. Wound bed is healthy without concerns for infection. Continue compressio n and elevation as above.Ct tor for S&S of cellulitis .Labs are pending from this AM -- depending on results, will consider treatment for BLE cellulitis . Low suspicion at present, symptoms resemble venous stasis changes at present. Monitor closely.Nu rsing to continue to send labs/weigh ts/vitals to cardiology Dr. Monteiro. [id number] Concepcion Faust, [place] [address] [address] 01/17/2024 09:23:58 01/19/2024 11:30:42 Acute on chronic combined systolic and diastolic heart failure 6555154173 79569 I50.43 s/p diuresis while inpatient. Has been discharged on usual OP regimen of Lasix 40 mg BID. Added PRN Metolazone as pt utilizes this as OP, as well, for increased edema.Cont inue Lasix & KCl.She received 5 mg Metolazone from 01/07-01/09 . She continued on PO KCl, but f/u labs noted drop in level to 3.1. Increased KCl to TID x 3 days, then will return to BID dosing. Expect this to normalize since Metolazone has not been given the last 2 days.Weigh t only improved 3 lbs and edema not improved. Pt's daughter states her normal weight fluctuates between 190-200 lbs.Contin ue BLE compressio n wraps. Changed to a tighter variation including ac wraps and pt's OP velcro wraps.Cont inue to encourage BLE elevation at rest.Marla nue to trend blood pressures, monitor lytes, renal function and weights. Stasis teja matitis and venous ulcer of lower extremity due to chronic peripheral venous hypertension 5408921585 47045 L97.909 SEE ABOVE...Co ntinue foam dressings daily to left cooper. Left skin lesion was formerly a blister. Wound bed is healthy without concerns for infection. Continue compressio n and elevation as above.Celine ting for cellulitis with Keflex x 7 days (01/21).La bs are pending from this AM.Nursing to continue to send labs/weigh ts/vitals to cardiology Dr. Monteiro. Hallucinations 3357637 R 44.3 Long-term and recurrent. Pt notes typically occurs at night and she believes are secondary to sleep medication s. As such, she does not want to take any for her insomnia. She notes the only medication that did not cause hallucinat ions was Melatonin, but that this medication was ineffectiv e.ST following as staff also notes some incidents of memory concerns.M onitor for reversible causes.Cou ld consider checking UA should symptoms arise. Minimal co gnitive impairment 442256716 R41.89 SEE ABOVE... Closed fra cture of triquetral bone of right wrist 4616800126 6929505 S62.114D Specific injury unclear, imaging noted questiona ble small acute fracture of dorsal triquetrum on lateral view. She has been placed in splint.Per ortho (Dr. Shaikh) WBAT.Marla nue therapies. Continue PRN APAP per standing orders.F/U with Dr. Shaikh as directed. Pain in fi nger of left hand 2258638626 60761 M79.645 Again, no specific injury but she was noted to have reduced ROM, tenderness , and pain to her left ring finger. No heat/warmt h. Xray [L] hand on 01/03 was without fracture.S ymptoms have resolved at this point.Cont inue PRN APAP per standing orders. Atrial fib rillation with rapid ventricular response 9223706298 68539 I48.91 Stable at present with periodic HRs in low 100s. Continue Metoprolol , dose increased while inpatient. Faxing weights, HR, & BPs weekly to Dr. Monteiro.Car ds [employer] Noreen Herring (with Dr. Monteiro). Acute urin kaitlyn tract infection 511495382 N39.0 12/19 Urine cx grew K. pneumonia, tripp-sensit yuri. She was treated with 3 days of IV antibiotic s and discharged on 2 days of Augmentin. Symptoms have resolved. Monitor for recurrence .Discussed with patient avoidance of Ditropan going forward. 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 Continue Metoprolol , Lasix, KCl, and PRN Metolazone & KCl.SEE ABOVE.Cont inue to trend blood pressures, monitor lytes and renal function, and adjust meds as clinically indicated. Chronic ki dney disease stage 3 728151003 N18.30 Per history. Baseline Cr unclear.Tr end labs and avoid additional nephrotoxi ns. Type 2 andrew betes mellitus 04350515 E11.69 Per daughter Katelyn, well-contr olled on current regimen.Co ntinue Toujeo 10 units daily and insulin lispro 3 units TID with meals with additional SSI. No insulin is given if BS is <100.Monit or blood sugars and continue LCS diet. Hypomagnesemia 624715885 E83.42 Level low. Increased supplement to TID and will continue to trend level. Gastroesop hageal reflux disease without esophagitis 522594381 K21.9 Stable. Continue Protonix. Obstructiv e sleep apnea syndrome 65554343 G47.33 Noncomplia nt with CPAP. Instead utilizes 2L NC at nighttime. Sleep rela andrea hypoxemia 6581852627 41699 G47.36 SEE ABOVE... Allergic rhinitis 729593 04 J30.9 Stable. Continue Loratadine for now -- consider trialling changing to PRN. Retention of urine 88933 4002 R33.9 Pt was noted to have retention while initially inpatient. She failed a voiding trial and was started on Tamsulosin . Pt discharged home with a catheter and daughter did not start pt on Tamsulosin . She moved f/u with Dr. Bonner up, was seen in office, and catheter was removed without further concerns. As such, Katelyn does not want her mother taking Tamsulosin .Monitor voiding -- no concerns today per pt.Discuss ed with patient avoidance of Ditropan going forward.F/ U with Dr. Duy Bonner PRN. At [facility] ed risk of polypharmacy 144712125 Z91.89 Unclear dx warranting use of Cholestyra mine as no history of documented hyperlipid emia but reported as home medication . Physical deconditioning 4439846129 9102 R68.89 Related to age, recent inpatient stay, and multiple comorbidit ies.Contin ue PT/OT and monitor progress. Goal is for pt to return ILF at [facility].Co ntinue PRN APAP for pain.Marla nue Eliquis for DVT prophylaxi s.Catharti cs available per standing orders for constipati on. [id number] Concepcion Faust NP [facility] [address] [address] 01/20/2024 09:10:43 01/24/2024 16:38:34 Acute on chronic combined systolic and diastolic heart failure 3321418419 08040 I50.43 s/p diuresis while inpatient. Has been discharged on usual OP regimen of Lasix 40 mg BID. Added PRN Metolazone as pt utilizes this as OP, as well, for increased edema.Cont inue Lasix & KCl.She received 5 mg Metolazone from 01/07-01/09 . She continued on PO KCl, but f/u labs noted drop in level to 3.1. Increased KCl to TID x 3 days, then returned to BID dosing. Has since normalized .Weight only improved 3 lbs and edema not improved after Metolazone course. Pt's daughter states her normal weight fluctuates between 190-200 lbs.She was seen by Dr. Monteiro's office on 01/17 and placed on Metolazone 2.5 mg daily x 7 days, then decrease to every other day dosing indetermin ately. Metoprolol dose was increased to 200 mg daily. Repeat labs ordered for 01/31.Due to concern with electrolyt e stability with addition of Metolazone , will check BMP tomorrow and Wednesday. Fax results to Dr. Monteiro's office.Con tinue BLE compressio n wraps. Changed to a tighter variation including ac wraps and pt's OP velcro wraps.Cont inue to encourage BLE elevation at rest.Marla nue to trend blood pressures, monitor lytes, renal function and weights. Stasis teja matitis and venous ulcer of lower extremity due to chronic peripheral venous hypertension 9740265457 12721 L97.909 SEE ABOVE...Co ntinue foam dressings daily to left cooper. Left skin lesion was formerly a blister.Co ntinue compressio n and elevation as above.Celine ting for cellulitis with Keflex x 7 days (01/21).Co ntinue to trend labs.Nursi ng to continue to send labs/weigh ts/vitals to cardiology Dr. Monteiro. Hallucinations 6068230 R 44.3 Long-term and recurrent. Pt notes typically occurs at night and she believes are secondary to sleep medication s. As such, she does not want to take any for her insomnia. She notes the only medication that did not cause hallucinat ions was Melatonin, but that this medication was ineffectiv e.ST following as staff also notes some incidents of memory concerns.M onitor for reversible causes.Cou ld consider checking UA should symptoms arise. Minimal co gnitive impairment 786639478 R41.89 SEE ABOVE... Closed fra cture of triquetral bone of right wrist 6247732407 4888925 S62.114D Specific injury unclear, imaging noted questiona ble small acute fracture of dorsal triquetrum on lateral view. She has been placed in splint.Per ortho (Dr. Shaikh) WBAT.Marla nue therapies. Continue PRN APAP per standing orders.F/U with Dr. Shaikh as directed. Atrial fib rillation with rapid ventricular response 2375336659 67716 I48.91 Stable at present with periodic HRs in low 100s. Continue Metoprolol , dose increased while inpatient and again at F/U appt with Dr. Monteiro on 01/17.Faxi ng weights, HR, & BPs weekly to Dr. Monteiro.Car ds [employer] Noreen Herring (with Dr. Monteiro). Acute urin kaitlyn tract infection 083137138 N39.0 12/19 Urine cx grew K. pneumonia, tripp-sensit yuri. She was treated with 3 days of IV antibiotic s and discharged on 2 days of Augmentin. Symptoms have resolved. Monitor for recurrence .Discussed with patient avoidance of Ditropan going forward. 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 Continue Metoprolol (increased ), Lasix, Metolazone , and KCl.SEE ABOVE.Cont inue to trend blood pressures, monitor lytes and renal function, and adjust meds as clinically indicated. Chronic ki dney disease stage 3 [id number] N18.30 Per history. Baseline Cr unclear.Tr end labs and avoid additional nephrotoxi ns. Type 2 andrew betes mellitus 20790298 E11.69 Per daughter Katelyn, well-contr olled on current regimen.Co ntinue Toujeo 10 units daily and insulin lispro 3 units TID with meals with additional SSI. No insulin is given if BS is <100.Monit or blood sugars and continue LCS diet. Hypomagnesemia 535964210 E83.42 Level low despite increase in supplement ation. Increase to 800 mg BID and repeat level on Wednesday. Gastroesop hageal reflux disease without esophagitis 900527600 K21.9 Stable. Continue Protonix. Obstructiv e sleep apnea syndrome 64637762 G47.33 Noncomplia nt with CPAP. Instead utilizes 2L NC at nighttime. Sleep rela andrea hypoxemia 0800690279 64031 G47.36 SEE ABOVE... Allergic rhinitis 483740 04 J30.9 Stable. Change Loratadine to PRN. Retention of urine 62822 4002 R33.9 Pt was noted to have retention while initially inpatient. She failed a voiding trial and was started on Tamsulosin . Pt discharged home with a catheter and daughter did not start pt on Tamsulosin . She moved f/u with Dr. Bonner up, was seen in office, and catheter was removed without further concerns. As such, Katelyn does not want her mother taking Tamsulosin .Monitor voiding -- no concerns today per pt.Discuss ed with patient avoidance of Ditropan going forward.F/ U with Dr. Duy Bonner PRN. Pain in fi nger of left hand [id number] 72649 M79.645 Again, no specific injury but she was noted to have reduced ROM, tenderness , and pain to her left ring finger. No heat/warmt h. Xray [L] hand on 01/03 was without fracture.S ymptoms have resolved at this point.Cont inue PRN APAP per standing orders. At [facility] risk of polypharmacy [id number] Z91.89 Unclear dx warranting use of Cholestyra mine as no history of documented hyperlipid emia but reported as home medication . Physical deconditioning [id number] 9102 R68.89 Related to age, recent inpatient stay, and multiple comorbidit ies.Contin ue PT/OT and monitor progress. Goal is for pt to return ILF at [facility].Co ntinue PRN APAP for pain.Marla nue Eliquis for DVT prophylaxi s.Catharti cs available per standing orders for constipati on. [id number] Concepcion Faust NP [facility] [address] [place] [address] 01/21/2024 09:11:22 01/27/2024 08:37:15 Acute on chronic combined systolic and diastolic heart failure [id number] 10745 I50.43 s/p diuresis while inpatient. Has been discharged on usual OP regimen of Lasix 40 mg BID. Added PRN Metolazone as pt utilizes this as OP, as well, for increased edema.Cont inue Lasix & KCl.She received 5 mg Metolazone from 01/07-01/09 . She continued on PO KCl, but f/u labs noted drop in level to 3.1. Increased KCl to TID x 3 days, then returned to BID dosing. Has since normalized .Weight only improved 3 lbs and edema not improved after Metolazone course. Pt's daughter states her normal weight fluctuates between 190-200 lbs.She was seen by Dr. Monteiro's office on 01/17 and placed on Metolazone 2.5 mg daily x 7 days, then decrease to every other day dosing indetermin ately. Metoprolol dose was increased to 200 mg daily. Repeat labs ordered for 01/31.Due to concern with electrolyt e stability with addition of Metolazone , BMP checked this morning -- K level remains stable. Will also repeat on Wednesday. Fax results to Dr. Monteiro's office.Con tinue BLE compressio n wraps. Changed to a tighter variation including ac wraps and pt's OP velcro wraps.Cont inue to encourage BLE elevation at rest.Marla nue to trend blood pressures, monitor lytes, renal function and weights. Stasis teja matitis and venous ulcer of lower extremity due to chronic peripheral venous hypertension 0696229817 65084 L97.909 SEE ABOVE...Co ntinue foam dressings daily to left cooper. Left skin lesion was formerly a blister.Co ntinue compressio n and elevation as above.Celine ting for cellulitis with Keflex, extending to a 10-day course (01/24).Co ntinue to trend labs.Nursi ng to continue to send labs/weigh ts/vitals to cardiology Dr. Monteiro. Hallucinations 4079997 R 44.3 Long-term and recurrent. Pt notes typically occurs at night and she believes are secondary to sleep medication s. As such, she does not want to take any for her insomnia. She notes the only medication that did not cause hallucinat ions was Melatonin, but that this medication was ineffectiv e.ST following as staff also notes some incidents of memory concerns.M onitor for reversible causes.Cou ld consider checking UA should symptoms arise. Minimal co gnitive impairment 564949456 R41.89 SEE ABOVE... Closed fra cture of triquetral bone of right wrist [id number] 4225384 S62.114D Specific injury unclear, imaging noted questiona ble small acute fracture of dorsal triquetrum on lateral view. She has been placed in splint.Per ortho (Dr. Shaikh) WBAT.Marla nue therapies. Continue PRN APAP per standing orders.F/U with Dr. Shaikh as directed. Atrial fib rillation with rapid ventricular response [id number] 82580 I48.91 Stable at present with periodic HRs in low 100s. Continue Metoprolol , dose increased while inpatient and again at F/U appt with Dr. Monteiro on 01/17.Faxi ng weights, HR, & BPs weekly to Dr. Monteiro.Car ds [employer] Noreen Herring (with Dr. Monteiro). Acute urin kaitlyn tract infection 513339824 N39.0 12/19 Urine cx grew K. pneumonia, tripp-sensit yuri. She was treated with 3 days of IV antibiotic s and discharged on 2 days of Augmentin. Symptoms have resolved. Monitor for recurrence .Discussed with patient avoidance of Ditropan going forward. 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 Continue Metoprolol (increased ), Lasix, Metolazone , and KCl.SEE ABOVE.Cont inue to trend blood pressures, monitor lytes and renal function, and adjust meds as clinically indicated. Chronic ki dney disease stage 3 552230107 N18.30 Per history. Baseline Cr unclear.Tr end labs and avoid additional nephrotoxi ns. Type 2 andrew betes mellitus 49484349 E11.69 Per daughter Katelyn, well-contr olled on current regimen.Co ntinue Toujeo 10 units daily and insulin lispro 3 units TID with meals with additional SSI. No insulin is given if BS is <100.Monit or blood sugars and continue LCS diet. Hypomagnesemia 863681683 E83.42 Level low despite increase in supplement ation. Increase to 800 mg BID and repeat level on Wednesday. Gastroesop hageal reflux disease without esophagitis 421688670 K21.9 Stable. Continue Protonix. Obstructiv e sleep apnea syndrome 84744672 G47.33 Noncomplia nt with CPAP. Instead utilizes 2L NC at nighttime. Sleep rela andrea hypoxemia 2913842240 12679 G47.36 SEE ABOVE... Allergic rhinitis 445494 04 J30.9 Stable. Change Loratadine to PRN. Retention of urine 21820 4002 R33.9 Pt was noted to have retention while initially inpatient. She failed a voiding trial and was started on Tamsulosin . Pt discharged home with a catheter and daughter did not start pt on Tamsulosin . She moved f/u with Dr. Bonner up, was seen in office, and catheter was removed without further concerns. As such, Katelyn does not want her mother taking Tamsulosin .Monitor voiding -- no concerns today per pt.Discuss ed with patient avoidance of Ditropan going forward.F/ U with Dr. Duy Bonner PRN. Pain in fi nger of left hand 1452002349 19448 M79.645 Again, no specific injury but she was noted to have reduced ROM, tenderness , and pain to her left ring finger. No heat/warmt h. Xray [L] hand on 01/03 was without fracture.S ymptoms have resolved at this point.Cont inue PRN APAP per standing orders. At [facility] risk of polypharmacy 747703606 Z91.89 Unclear dx warranting use of Cholestyra mine as no history of documented hyperlipid emia but reported as home medication . Physical deconditioning 8034644392 9102 R68.89 Related to age, recent inpatient stay, and multiple comorbidit ies.Contin ue PT/OT and monitor progress. Goal is for pt to return ILF at [facility].Co ntinue PRN APAP for pain.Marla nue Eliquis for DVT prophylaxi s.Catharti cs available per standing orders for constipati on. [id number] Concepcion Faust NP [facility] [address] [place] [address] 01/24/2024 10:20:14 01/31/2024 12:50:49 Acute on chronic combined systolic and diastolic heart failure 7837291042 66221 I50.43 s/p diuresis while inpatient. Has been discharged on usual OP regimen of Lasix 40 mg BID. Added PRN Metolazone as pt utilizes this as OP, as well, for increased edema.She received 5 mg Metolazone from 01/07-01/09 . Weight only improved 3 lbs and edema not improved. Pt's daughter states her normal weight fluctuates between 190-200 lbs.She was seen by Dr. Monteiro's office on 01/17 and placed on Metolazone 2.5 mg daily x 7 days, then decrease to every other day dosing indetermin ately. Metoprolol dose was increased to 200 mg daily. She continues on Lasix & KCl, as well.Marla nue BLE compressio n wraps. Changed to a tighter variation including ac wraps and pt's OP velcro wraps.Cont inue to encourage BLE elevation at rest.Nursi ng to continue to send labs/weigh ts/vitals to cardiology Dr. Monteiro. They are calling today with update. Dr. Monteiro is managing diuretics. Stasis teja matitis and venous ulcer of lower extremity due to chronic peripheral venous hypertension 1373561345 64181 L97.909 SEE ABOVE...Le ft cooper lesion was formerly a blister. Continue foam dressings daily to left cooper. Improving. Continue compressio n and elevation as above.Celine ting for cellulitis with 10-days of Keflex through 01/24. Much improved today. Hallucinations 9282033 R 44.3 Long-term and recurrent. Pt notes typically occurs at night and she believes are secondary to sleep medication s. As such, she does not want to take any for her insomnia. She notes the only medication that did not cause hallucinat ions was Melatonin, but that this medication was ineffectiv e.ST followed as staff also noted some incidents of memory concerns.M onitor for reversible causes. Minimal co gnitive impairment 197944863 R41.89 SEE ABOVE... Closed fra cture of triquetral bone of right wrist 4022533647 0885589 S62.114D Specific injury unclear, imaging noted questiona ble small acute fracture of dorsal triquetrum on lateral view. She has been placed in splint.Per ortho (Dr. Shaikh) WBAT.Marla nue therapies. Continue PRN APAP per standing orders.F/U with Dr. Shaikh as directed. Atrial fib rillation with rapid ventricular response 1227568514 48970 I48.91 Stable at present with periodic HRs in low 100s. Continue Metoprolol , dose increased while inpatient and again at F/U appt with Dr. Monteiro on 01/17.F/U with Cards [employer] Noreen Herring (with Dr. Monteiro) as directed. Acute urin kaitlyn tract infection 623822860 N39.0 12/19 Urine cx grew K. pneumonia, tripp-sensit yuri. She was treated with 3 days of IV antibiotic s and discharged on 2 days of Augmentin. Symptoms have resolved. Monitor for recurrence .Discussed with patient avoidance of Ditropan going forward. 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 Continue Metoprolol (increased ), Lasix, Metolazone , and KCl.SEE ABOVE.Cont inue to trend blood pressures, monitor lytes and renal function, and adjust meds as clinically indicated. Chronic ki dney disease stage 3 030027103 N18.30 Per history. Baseline Cr unclear.Tr end labs and avoid additional nephrotoxi ns. Type 2 andrew betes mellitus 61587119 E11.69 Per daughter Katelyn, well-contr olled on current regimen.Co ntinue Toujeo 10 units daily and insulin lispro 3 units TID with meals with additional SSI. No insulin is given if BS is <100.Monit or blood sugars and continue LCS diet. Hypomagnesemia 212991548 E83.42 Level low despite increase in supplement ation. Increase to 800 mg BID and repeat level finally WNL. Continue to trend as OP. Gastroesop hageal reflux disease without esophagitis 581985119 K21.9 Stable. Continue Protonix. Obstructiv e sleep apnea syndrome 18137216 G47.33 Noncomplia nt with CPAP. Instead utilizes 2L NC at nighttime. Sleep rela andrea hypoxemia 7247978977 78064 G47.36 SEE ABOVE... Allergic rhinitis 971548 04 J30.9 Stable. Changed Loratadine to PRN. Retention of urine 03848 4002 R33.9 Pt was noted to have retention while initially inpatient. She failed a voiding trial and was started on Tamsulosin . Pt discharged home with a catheter and daughter did not start pt on Tamsulosin . She moved f/u with Dr. Bonner up, was seen in office, and catheter was removed without further concerns. As such, Katelyn does not want her mother taking Tamsulosin .Monitor voiding -- no concerns today per pt.Discuss ed with patient avoidance of Ditropan going forward.F/ U with Dr. Duy Bonner PRN. Pain in fi nger of left hand 6706815039 47129 M79.645 Again, no specific injury but she was noted to have reduced ROM, tenderness , and pain to her left ring finger. No heat/warmt h. Xray [L] hand on 01/03 was without fracture.S ymptoms have resolved at this point.Cont inue PRN APAP per standing orders. At [facility] risk of polypharmacy 901689732 Z91.89 Unclear dx warranting use of Cholestyra mine as no history of documented hyperlipid emia but reported as home medication . [id number] Concepcion Faust, [facility] [address] [place] [address] 02/25/2024 09:01:54 02/26/2024 11:49:53 Acute on chronic combined systolic and diastolic heart failure 3192582681 82861 I50.43 Continues on OP dose of Lasix 40 mg BID. During last rehab stay, she was taking PRN Metolazone but this was ultimately changed to 4x/week by Dr. Monteiro and was discharged on this regimen. KCl was also adjusted as pt was frequently hypo- or hyperkalem ic. Stabilized at discharge. She has now returned on this same regimen.Nu rsing to verify diuretics & KCl orders from cardiology from 02/23 as KCl dose will change on 02/27 but this was not communicat ed directly to nurses, only noted in a scanned-in document.Samy mane's daughter states her normal weight fluctuates between 190-200 lbs.Contin ues on Metoprolol .Continue BLE ac wraps with OP velcro wraps as 2nd layer.Cont inue to encourage BLE elevation at rest.Nursi ng to continue to send labs/weigh ts/vitals to cardiology Dr. Monteiro as family typically desires their office to adjust her diuretics/ KCl. Stasis teja matitis and venous ulcer of lower extremity due to chronic peripheral venous hypertension 1616937838 50977 L97.909 SEE ABOVE...Pt has multiple venous ulcers sec to ruptured blisters to BLE. Continue local wound care and SWM to eval & treat. Hallucinations 5134187 R 44.3 Long-term and recurrent. Pt notes typically occurs at night and she believes are secondary to sleep medication s. As such, she does not want to take any for her insomnia. She notes the only medication that did not cause hallucinat ions was Melatonin, but that this medication was ineffectiv e.ST will follow once again. Minimal co gnitive impairment 920836624 R41.89 SEE ABOVE... Closed fra cture of triquetral bone of right wrist 5949022241 0990365 S62.114D Specific injury unclear, imaging noted questiona ble small acute fracture of dorsal triquetrum on lateral view. She has been placed in splint.Per ortho (Dr. Shaikh) WBAT.Marla nue therapies. Continue PRN APAP for pain.She will f/u with Dr. Shaikh today and hopes she will be released from wearing splint. Atrial fib rillation with rapid ventricular response 2747234518 70345 I48.91 Stable at present. Continue Metoprolol .Continue Eliquis for VTE ppx.F/U with Dr. Monteiro) as directed. Acute urin kaitlyn tract infection 724466148 N39.0 12/19 Urine cx grew K. pneumonia, tripp-sensit yuri. She was treated with 3 days of IV antibiotic s and discharged on 2 days of Augmentin. Symptoms have resolved. Monitor for recurrence .Discussed with patient avoidance of Ditropan going forward. Hypertensi ve heart and renal disease with (congestive) heart failure 127214290 I13.0 Continue Metoprolol , Lasix, Metolazone , and KCl.SEE ABOVE.Cont inue to trend blood pressures, monitor lytes and renal function, and adjust meds as clinically indicated. Chronic ki dney disease stage 3 522833612 N18.30 Per history. Baseline Cr unclear.Tr end labs and avoid additional nephrotoxi ns. Type 2 andrew betes mellitus 56781109 E11.69 Per daughter Katelyn, well-contr olled on current regimen.Co ntinue Toujeo 10 units daily and insulin lispro 3 units TID with meals with additional SSI. No insulin is given if BS is <100.Monit or blood sugars and continue LCS diet. Hypomagnesemia 306271489 E83.42 Stable. Continue supplement and trend level. Gastroesop hageal reflux disease without esophagitis 990703569 K21.9 Stable. Continue Protonix. Obstructiv e sleep apnea syndrome 48358961 G47.33 Noncomplia nt with CPAP. Instead utilizes 2L NC at nighttime. Sleep rela andrea hypoxemia 6939800101 47822 G47.36 SEE ABOVE... Allergic rhinitis 132082 04 J30.9 Stable. Changed Loratadine to PRN last visit and she tolerated. Now back to routine. Consider changing to PRN once again. Retention of urine 44597 4002 R33.9 Pt was noted to have retention while initially inpatient in Dec 2023. She failed a voiding trial and was started on Tamsulosin . Pt discharged home with a catheter and daughter did not start pt on Tamsulosin . She f/u with Dr. Bonner and catheter was removed without further concerns.M onitor voiding -- no concerns today per pt.Discuss ed with patient avoidance of Ditropan going forward.F/ U with Dr. Duy Bonner PRN. At [facility] ed risk of polypharmacy 806599989 Z91.89 Unclear dx warranting use of Cholestyra mine as no history of documented hyperlipid emia but reported as home medication . Not for resuscitation 30 7855833 Z66 DNR. Confirmed today. 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 Continue foam dressing and monitor. Offload pressure. [id number] Shonda Reaves, [facility] [address] [place] [address] 02/27/2024 08:58:41 02/27/2024 21:33:30 Acute on chronic combined systolic and diastolic heart failure 2820400305 89735 I50.43 Continues on OP dose of Lasix 40 mg BID. During last rehab stay, she was taking PRN Metolazone but this was ultimately changed to 4x/week by Dr. Monteiro and was discharged on this regimen. KCl was also adjusted as pt was frequently hypo- or hyperkalem ic. Stabilized at discharge. She has now returned on this same regimen.us ual weight is between 190-200 lbs.Contin ue Metoprolol 200 mg daily.Cont inue BLE ac wraps with OP velcro wraps as 2nd layer.Cont inue to encourage BLE elevation at rest.Nursi ng to continue to send labs/weigh ts/vitals to cardiology Dr. Monteiro as family typically desires their office to adjust her diuretics/ KCl.contin ue to discuss goals of care with patient/fa ludin - currently they seem to be leaning toward treatment in place with comfort focused care and considerat ion of hospice placement/ return of patient to her apartment (if possible) upon d/c from SNF Stasis teja matitis and venous ulcer of lower extremity due to chronic peripheral venous hypertension 3459402184 68244 L97.909 SEE ABOVE...Pt has multiple venous ulcers sec to ruptured blisters to BLE. Continue local wound care and SWM to eval & treat. Hallucinations 9988143 R 44.3 Long-term and recurrent. Pt notes typically occurs at night and she believes are secondary to sleep medication s. As such, she does not want to take any for her insomnia. She notes the only medication that did not cause hallucinat ions was Melatonin, but that this medication was ineffectiv e.ST will follow once again Minimal co gnitive impairment 911884304 R41.89 SEE ABOVE...in creased confusion noted this am - unclear if this is related to poor sleep hygiene, hypoglycem ia or something else. long discussion with daughter today with offer to get stat labs. She is agreeable to close observatio n for now with plans for labs in am and adjustment in insulin regimen Closed fra cture of triquetral bone of right wrist 5351527695 0565355 S62.114D Specific injury unclear, imaging noted questiona ble small acute fracture of dorsal triquetrum on lateral view. She has been placed in splint.Per ortho (Dr. Shaikh) WBAT.Marla nue therapies. Continue PRN APAP for pain and wrist splinting Atrial fib rillation with rapid ventricular response [id number] 35541 I48.91 Stable at present. Continue Metoprolol .Continue Eliquis for VTE ppx.F/U with Dr. Monteiro Acute urin kaitlyn tract infection 993958863 N39.0 12/19 Urine cx grew K. pneumonia, tripp-sensit yuri. She was treated with 3 days of IV antibiotic s and discharged on 2 days of Augmentin. Symptoms have resolved. Monitor for recurrence .Discussed with patient avoidance of Ditropan going forward. 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 Chronic ki dney disease stage 3 019824302 N18.30 Per history. Baseline Cr unclear.Tr end labs and avoid additional nephrotoxi ns. Type 2 andrew betes mellitus 76245297 E11.69 Per daughter Katelyn, well-contr olled on current regimen.Co ntinue Toujeo 10 units daily and insulin lispro 3 units TID with meals with additional SSI. No insulin is given if BS is <100.Monit or blood sugars and continue LCS diet. Hypomagnesemia 340201485 E83.42 Stable. Continue supplement and trend level. Gastroesop hageal reflux disease without esophagitis 995448120 K21.9 Stable. Continue Protonix. 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 Continue foam dressing and monitor. Offload pressure. Obstructiv e sleep apnea syndrome 42471300 G47.33 Noncomplia nt with CPAP. Instead utilizes 2L NC at nighttime. Sleep rela andrea hypoxemia 4866848165 81662 G47.36 SEE ABOVE... Allergic rhinitis 545730 04 J30.9 Stable. Changed Loratadine to PRN last visit and she tolerated. Now back to routine. Consider changing to PRN once again. Retention of urine 38900 4002 R33.9 Pt was noted to have retention while initially inpatient in Dec 2023. She failed a voiding trial and was started on Tamsulosin . Pt discharged home with a catheter and daughter did not start pt on Tamsulosin . She f/u with Dr. Bonner and catheter was removed without further concerns.M onitor voidingavo id ditropan going forwardF/U with Dr. Duy Bonner PRN. At [facility] ed risk of polypharmacy 809234954 Z91.89 Unclear dx warranting use of Cholestyra mine as no history of documented hyperlipid emia but reported as home medication . [id number] Concepcion Faust NP [place] [address] [place] [address] 02/28/2024 13:30:53 02/28/2024 16:55:52 Acute on chronic combined systolic and diastolic heart failure 1310673930 84931 I50.43 Continues on OP dose of Lasix 40 mg BID. During last rehab stay, she was taking PRN Metolazone but this was ultimately changed to 4x/week by Dr. Monteiro and was discharged on this regimen. KCl was also adjusted as pt was frequently hypo- or hyperkalem ic. Stabilized at discharge. She has now returned on this same regimen.us ual weight is between 190-200 lbs.Contin ue Metoprolol 200 mg daily.Cont inue BLE ac wraps with OP velcro wraps as 2nd layer.Cont inue to encourage BLE elevation at rest.Nursi ng to continue to send labs/weigh ts/vitals to cardiology Dr. Monteiro twice a week as family desires their office to adjust her diuretics/ KCl.Contin ue to discuss goals of care with patient/fa ludin. Stasis teja matitis and venous ulcer of lower extremity due to chronic peripheral venous hypertension [id number] L97.909 SEE ABOVE...Pt has multiple venous ulcers sec to ruptured blisters to BLE. Continue local wound care and SWM to eval & treat. Hallucinations [id number] R 44.3 Long-term and recurrent. Pt notes typically occurs at night and she believes are secondary to sleep medication s. As such, she does not want to take any for her insomnia. She notes the only medication that did not cause hallucinat ions was Melatonin, but that this medication was ineffectiv e.ST will follow once again. Minimal co gnitive impairment [id number] R41.89 SEE ABOVE... Closed fra cture of triquetral bone of right wrist [id number] S62.114D Specific injury unclear, imaging noted questiona ble small acute fracture of dorsal triquetrum on lateral view. She has been placed in splint.Per ortho (Dr. Shaikh) WBAT and can wear splint PRN.Contin ue therapies. Continue PRN APAP for pain.F/U with Dr. Shaikh PRN. Atrial fib rillation with rapid ventricular response [id number] 18948 I48.91 Stable at present. Continue Metoprolol .Continue Eliquis for VTE ppx.F/U with Dr. Monteiro. Acute urin kaitlyn tract infection [id number] N39.0 11 Urine cx grew K. pneumonia, tripp-sensit yuri. She was treated with 3 days of IV antibiotic s and discharged on 2 days of Augmentin. Symptoms have resolved. Monitor for recurrence .Discussed with patient avoidance of Ditropan going forward. 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 Chronic ki dney disease stage 3 [id number] N18.30 Per history. Baseline Cr unclear.Tr end labs and avoid additional nephrotoxi ns. Type 2 andrew betes mellitus [id number] E11.69 Per daughter Katelyn, well-contr olled on current regimen.Co ntinue Toujeo 10 units daily and insulin lispro 3 units TID with meals with additional SSI with breakfast and lunch only. No insulin is given if BS is <130.Monit or blood sugars and continue LCS diet. Hypomagnesemia 116447088 E83.42 Stable. Continue supplement and trend level. Gastroesop hageal reflux disease without esophagitis [id number] K21.9 Stable. Continue Protonix. 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 Continue foam dressing and monitor. Offload pressure. Obstructiv e sleep apnea syndrome 00282421 G47.33 Noncomplia nt with CPAP. Instead utilizes 2L NC at nighttime. Sleep rela andrea hypoxemia [id number] 63224 G47.36 SEE ABOVE... Allergic rhinitis [phone] 04 J30.9 Stable. Changed Loratadine to PRN last visit and she tolerated. Now back to routine. Consider changing to PRN once again. Retention of urine 29436 4002 R33.9 Pt was noted to have retention while initially inpatient in Dec 2023. She failed a voiding trial and was started on Tamsulosin . Pt discharged home with a catheter and daughter did not start pt on Tamsulosin . She f/u with Dr. Bonner and catheter was removed without further concerns.M onitor voidingavo id ditropan going forwardF/U with Dr. Duy Bonner PRN. At [facility] risk of polypharmacy [id number] Z91.89 Unclear dx warranting use of Cholestyra mine as no history of documented hyperlipid emia but reported as home medication . Contact dermatitis [phone] L25.9 Add TMC cream BID to bilateral thighs. Health Concerns Section Related Observation LastModified by Organization Detai ls LastModified Time None Recorded Concern Status LastModified by Organization Details LastModified Time None Recorded Advance Directives Directive None Recorded Payers Encounter Date Sequence Insurance Name Policy Number Policy Acosta Covered Member ID Acosta Member ID Guarantor Name 01/21/2024 1 [place] Radha L Benne [id number] 2 Radha L Benne 01/21/2024 2 [employer] Radha L Benne [id number] Radha L Benne 01/24/2024 1 [place] Radha L Benne [id number] 2 Radha L Benne 01/24/2024 2 [employer] Radha L Benne [id number] Radha L Benne 02/25/2024 1 [place] Radha L Benne [id number] 2 Radha L Benne 02/25/2024 2 [employer] Radha L Benne [id number] Radha L Benne 02/27/2024 1 [place] Radha L Benne [id number] 2 Radha L Benne 02/27/2024 2 [employer] Radha L Benne [id number] Radha L Benne 02/28/2024 1 [place] Radha L Benne [id number] 2 Radha L Benne 02/28/2024 2 [employer] Radha L Benne [id number] Radha Salmeron Notes Date Note Type Note Provider Name and Address Organization Details Recorded Time 01/21/2024 text/html F/U right trique tral fracture, recent UTI, atrial fibrillation, acute on chronic CHF, hyperkalemia, physical deconditioning, and chronic medical conditions.--- 4Today, Radha is initially seen using the restroom as the pt's daughter would like her sacrum evaluated. Katelyn reports that she has concerns regarding this, as her mother has been complaining of discomfort when sitting, as well as her mother's left 4th finger. Katelyn notes that the morning of 12/30, both her and her mother noted edema and bruising to the pt's left ring finger involving the MCP & PIP region. There is no visible deformity but Radha does report decreased range of motion due to edema and discomfort. The pt typically wears a ring on this hand but removed it a few weeks ago as she said it was too loose. She cannot recall any injury that may have caused this. There is no warmth or erythema noted. The rest of her dorsal hand is spared but nearby MCPs have trace edema. She does typically wear a brace on this wrist for discomfort/arthritis but has not been wearing recently. Katelyn is also concerned about her mother's HRs. She tells me that her HRs usually run in the upper 90s but she expresses over the last few weeks they have been jumping up to 110s at times. She does not want anyone to adjust her mother's cardiac medications except for Dr. Monteiro's office so I let her know we can fax HRs & BPs to their office and reach out to them for adjustments. We discuss pt's possible WB status as the daughter believed she was WBAT, told verbally by [facility], but we do not have any records confirming this. For now, we have kept her NWB. Nursing has contacted Dr. Torres's office and are waiting for a call back. Examination of coccyx reveals some shallow excoriation without concerns for infection or candidiasis. Staff is applying barrier cream at present and she has an appropriate w/c pad in place. I educated pt and daughter to avoid lying directly on this region and to change position at least every 2 hours to ensure this has the opportunity to heal. She is also noted to have a foam dressing overlying her thoracic spine where she has a stable scab overlying a vertebral prominence sec to kyphosis. No concerns for infection at present. I updated nursing on all of the above. VSS. HRs mostly well-controlled. Staff is without concerns beyond aforementioned.----The patient is sitting up in her bedside chair today. She is very pleasant and a good historian. She has lived at [facility] for approximately 7 years and talks fondly of her 7 children, many grandchildren and great grandchildren. There has been some concern with her potassium level being elevated per labs yesterday (5.8). Supplementation was held by this service with plans for repeat labs in AM. However, after nursing sent labs to cardiology, they reviewed and dose adjusted supplementation to 40 meq BID. She remains on supplemental O2 today and Is generally feeling well without new complaints or concerns. She has had some bruising noted to the left hand of unclear etiology. xray was done yesterday and negative per nursing report.----01/09/24I am asked by nursing to look at the patient's legs today due to edema. She has had notable weight gain of 6-7 pounds since admission. I was called over the weekend with request to resume the patient's outpatient prn metolazone of 5 mg daily. Family also requested ditropan be resumed which the patient was taking for overactive bladder. Metolazone was ordered and given yesterday and again today. Ditropan was not ordered due to the patient's recent uti and urinary retention. Nursing reports weeping and open wounds to the LE related to edema. The patient is not using supplemental O2 this am - she denies SOB or chest pain. She feels that edema is a bit worse than usual. She has tubigrips and velcro compression wraps in place today.---01/12/24Flore arnoldo is seated in the common area in her recliner with her BLE elevated. She is in good spirits today, a fair historian with forgetfulness, denies concerns or pain but does continue to note BLE edema. Her legs are wrapped but note the outer layer wraps (from home) are rather loose. She tells me they are loose as they were previously too tight and hurting her. I also note she has ankle socks which she has cut with scissors so they will not dig into the front of her ankle. Despite this, they are firmly pressing into her ankle. I readjust the socks to relieve pressure and educate her on the need for non-ankle socks as any socs that are cut at the ankle will do this. She needs loose, large tubi-type socks that can go over her compression. She expresses understanding. She received 5 mg Metolazone (she utilizes PRN for edema as OP) from 01/07-01/09. F/U labs yesterday noted drop in level to 3.1 despite potassium supplementation, likely due to Metolazone addition. I increased KCl to TID x 3 days, then she will return to BID dosing. Expect this to normalize since Metolazone has not been given the last 2 days. Repeat labs are ordered for tomorrow. Despite Metolazone being given, her weight only improved 2 lbs and edema did not improve. VSS. Staff is without concerns today beyond aforementioned edema.---01/13/24Staff requested visit today for BLE erythema and continuing edema. Edema and weight remain largely unchanged following Metolazone burst over the weekend. Weight only decreased 3 lbs with 3 doses and potassium level dropped. She is noted to have unchanged edema to BLE with erythema notable to bilateral shins. Feet are spared (not able to assess knees up). There is no warmth involved, skin is cool to the touch. Her left cooper lesion remains unconcerning, secondary to a venous blister that popped. She is wearing very tight pants and I am unable to pull them up over her kneecaps as they have formed a rubber-band type tightness at the top of her shins. Discussed at length with pt and nursing that these pants need to be avoided as they are hindering any improvement in edema that BLE compression may attempt. We discuss changing her BLE compression to a tighter variation, using ac wraps instead of tubigrips, starting at the toes, and then applying the pt's home velcro wraps. Remove at bedtime. We also discussed getting different socks as I continue to note her ankle socks are pressing into her skin. They plan to change her out of her pants and into a nightgown for now and will discuss the above concerns with the pt's daughter when she arrives later. Labs are pending from this morning. Will confer with Dr. Reaves and, based on results, determine whether antibiotics need to be started for possible cellulitis. Given that wound is unconcerning and limbs are not warm, will hold off on treatment for now. Suspect the erythema is secondary to PVD/stasis dermatitis due to rubber-banding of pant-legs and exacerbated edema. Also encouraged pt to lie down in bed with legs on pillows after lunch. When not in bed, encouraged pt to sit in recliner with legs elevated. Staff notes she is only intermittently compliant with this but that they continually encourage this. Radha is without respiratory or systemic concerns of fluid overload at present. Nursing also mentions some concern with pt's forgetfulness. They note they have conversations with her and she does not recall it even 5 minutes later at times. She chronically, intermittently hallucinates, typically in the evenings. The pt admits this to me but attributes it to medicines that have been given to her to help her sleep. She tells me that everything she has tried for sleep has given her hallucinations. Melatonin is the only medicine that did not cause this, but she noted it was ineffective entirely. She is not concern with insomnia at present -- notes she is sleeping at her baseline level. Her daughter attributes her hallucinations to lack of sleep. Pt has not reported any hallucinations to me recently. Will request ST to eval & treat for cognition for baseline. VSS. Staff is otherwise without concerns.---01/17/24Neel rodriguez is seated in her recliner in her room, her daughter by her side. Her BLE edema is not improved from my last visit, actually appears worse. BLE erythema is unchanged, remains without warmth and ulcer to left cooper is unchanged, without concerns for infection. Discuss with pt and daughter, I will contact Dr. Monteiro's office to discuss next steps. Pt's daughter lets me know she has a f/u appt with cardiology scheduled for tomorrow. I have reached out to Dr. Monteiro's office, let a message with the [employer], and they note she will address at her appt tomorrow. Radha is noted to have severe scratching to [R] thigh. She tells me she is doing it at night and doesn't even realize she is doing this. Her pt's daughter notes this is actually improved than last week. We discuss plan to add PRN KCl dose whenever PRN Metolazone is used. VSS. Staff is without concerns beyond above.---01/20/24Eduarda owusu is seated in her recliner in the common area with her BLE elevated. Her daughter is at her side. We review the changes made during her f/u appt with Dr. Monteiro's office on 01/17 -- she is taking Metolazone 2.5 mg daily x 7 days, then decrease to every other day dosing indeterminately. Metoprolol dose was increased to 200 mg daily. Repeat labs ordered for 01/31. Daughter is in agreement to test BMP tomorrow to make certain potassium supplementation remains adequate. Nursing notes improvement in erythema and condition of left cooper ulceration. Wraps are in place. Edema appears unchanged since my previous visit. Nursing doubts accuracy of recent weights showing up-tick in weight as they believe her edema is improved. They plan to discuss with CNAs making certain they are using the same scale for consistency. VSS except HRs continue 97-107 bpm. Staff is otherwise without concerns.---01/21/24F zeeshan is seated in her recliner in her room, resting comfortably. She tells me she had a good night's sleep last night and that her buttocks has not been bothering her yet today. Labwork from this AM is pending. I am able to assess her BLE and note marked improvement in erythema to BLE although edema appears unchanged. Staff continues to apply ac wraps. VSS. HR improved this morning. Staff is without concerns beyond aforementioned. Per 01/19 therapy notes: Conducted gait training with Rollator ~75' SBA cues for direction and wt shifting. sit/stand to Rollator SBA Concepcion Faust, FILOME[facility] [id number] [facility], [place], [id number], [facility] [place] [facility] 01/21/2024 12:26:09 01/24/2024 text/html Radha present ed to [facility] on 12/20/23 with c/o [R] wrist pain. Radha lives in an [facility] apartment at [place]. Per pt's daughter Katelyn at bedside today, they are uncertain when the pt injured her wrist and are considering this a spontaneous fx, but she does mention that the pt had an injury about 2 weeks before her ER visit that may have contributed. Her mother was reaching for the window blind cord with her right hand and her left elbow was balancing herself on a table. Her left elbow slipped and she obtained a skin tear on that left arm. She believes her mother was distracted by the pain of the skin tear that she may not have noticed that she hit her wrist on the window ledge. Radha did not have pain, edema, or visible injury until 12/19. [R] wrist imaging in the ER noted questionable small acute fracture of dorsal triquetrum on lateral view. She was also noted to have mild dyspnea at rest. Radha reported a URI the week prior with improvement in symptoms at that point but did continue with cough. Viral testing was negative. CXR showed central congestive changes and minimal bibasilar pulmonary edema/atelectasis. Her right wrist was placed in a splint. She was given a nebulizer, which unfortunately put her into Afib with RVR. She was treated with IV Lopressor without improvement, so was admitted to hospital. Cardiology was consulted and adjusted her Metoprolol and gave IV diuresis. She was discharged on her usual OP dosing of Lasix without adjustment. Orthopedics consulted and recommended conservative management with OP follow up (documentation here does not specify WB status but daughter believes she is WBAT and was using her wrist as tolerated at discharge). Radha did have urinary retention while inpatient with mena catheter placed. Voiding trial while inpatient was attempted with failure. Urine cx grew K. pneumonia, tripp-sensitive. She was treated with 3 days of IV antibiotics and discharged on 2 days of Augmentin. She was started on Tamsulosin and discharged with mena. She was to f/u with urology Dr. Bonner in 2 weeks. She discharged home on 12/23/23. Her urology f/u was moved up, [facility], and she has been voiding without concerns since then, per daughter. She notes that pt never took the Tamsulosin so she does not want it continued. However, during this week at home, Radha's care needs were great, so she has come to this facility for rehabilitation with goal of returning home. Meds Started: N/AMeds Adjusted: Metoprolol Succinate from 100 mg daily to 150 mg daily.Meds Stopped: Tamsulosin (started at hospital, stopped on arrival here per daughter's insistence) PCP Dr. Gabriel Velasquez.DNR comfort measures.POA is daughter Katelyn.---01/03/24Toda y, Radha is initially seen using the restroom as the pt's daughter would like her sacrum evaluated. Katelyn reports that she has concerns regarding this, as her mother has been complaining of discomfort when sitting, as well as her mother's left 4th finger. Katelyn notes that the morning of 12/30, both her and her mother noted edema and bruising to the pt's left ring finger involving the MCP & PIP region. There is no visible deformity but Radha does report decreased range of motion due to edema and discomfort. The pt typically wears a ring on this hand but removed it a few weeks ago as she said it was too loose. She cannot recall any injury that may have caused this. There is no warmth or erythema noted. The rest of her dorsal hand is spared but nearby MCPs have trace edema. She does typically wear a brace on this wrist for discomfort/arthritis but has not been wearing recently. Katelyn is also concerned about her mother's HRs. She tells me that her HRs usually run in the upper 90s but she expresses over the last few weeks they have been jumping up to 110s at times. She does not want anyone to adjust her mother's cardiac medications except for Dr. Monteiro's office so I let her know we can fax HRs & BPs to their office and reach out to them for adjustments. We discuss pt's possible WB status as the daughter believed she was WBAT, told verbally by [facility], but we do not have any records confirming this. For now, we have kept her NWB. Nursing has contacted Dr. Torres's office and are waiting for a call back. Examination of coccyx reveals some shallow excoriation without concerns for infection or candidiasis. Staff is applying barrier cream at present and she has an appropriate w/c pad in place. I educated pt and daughter to avoid lying directly on this region and to change position at least every 2 hours to ensure this has the opportunity to heal. She is also noted to have a foam dressing overlying her thoracic spine where she has a stable scab overlying a vertebral prominence sec to kyphosis. No concerns for infection at present. I updated nursing on all of the above. VSS. HRs mostly well-controlled. Staff is without concerns beyond aforementioned.----The patient is sitting up in her bedside chair today. She is very pleasant and a good historian. She has lived at [facility] for approximately 7 years and talks fondly of her 7 children, many grandchildren and great grandchildren. There has been some concern with her potassium level being elevated per labs yesterday (5.8). Supplementation was held by this service with plans for repeat labs in AM. However, after nursing sent labs to cardiology, they reviewed and dose adjusted supplementation to 40 meq BID. She remains on supplemental O2 today and Is generally feeling well without new complaints or concerns. She has had some bruising noted to the left hand of unclear etiology. xray was done yesterday and negative per nursing report.----01/09/24I am asked by nursing to look at the patient's legs today due to edema. She has had notable weight gain of 6-7 pounds since admission. I was called over the weekend with request to resume the patient's outpatient prn metolazone of 5 mg daily. Family also requested ditropan be resumed which the patient was taking for overactive bladder. Metolazone was ordered and given yesterday and again today. Ditropan was not ordered due to the patient's recent uti and urinary retention. Nursing reports weeping and open wounds to the LE related to edema. The patient is not using supplemental O2 this am - she denies SOB or chest pain. She feels that edema is a bit worse than usual. She has tubigrips and velcro compression wraps in place today.---01/12/24Flore arnoldo is seated in the common area in her recliner with her BLE elevated. She is in good spirits today, a fair historian with forgetfulness, denies concerns or pain but does continue to note BLE edema. Her legs are wrapped but note the outer layer wraps (from home) are rather loose. She tells me they are loose as they were previously too tight and hurting her. I also note she has ankle socks which she has cut with scissors so they will not dig into the front of her ankle. Despite this, they are firmly pressing into her ankle. I readjust the socks to relieve pressure and educate her on the need for non-ankle socks as any socs that are cut at the ankle will do this. She needs loose, large tubi-type socks that can go over her compression. She expresses understanding. She received 5 mg Metolazone (she utilizes PRN for edema as OP) from 01/07-01/09. F/U labs yesterday noted drop in level to 3.1 despite potassium supplementation, likely due to Metolazone addition. I increased KCl to TID x 3 days, then she will return to BID dosing. Expect this to normalize since Metolazone has not been given the last 2 days. Repeat labs are ordered for tomorrow. Despite Metolazone being given, her weight only improved 2 lbs and edema did not improve. VSS. Staff is without concerns today beyond aforementioned edema.---01/13/24Staff requested visit today for BLE erythema and continuing edema. Edema and weight remain largely unchanged following Metolazone burst over the weekend. Weight only decreased 3 lbs with 3 doses and potassium level dropped. She is noted to have unchanged edema to BLE with erythema notable to bilateral shins. Feet are spared (not able to assess knees up). There is no warmth involved, skin is cool to the touch. Her left cooper lesion remains unconcerning, secondary to a venous blister that popped. She is wearing very tight pants and I am unable to pull them up over her kneecaps as they have formed a rubber-band type tightness at the top of her shins. Discussed at length with pt and nursing that these pants need to be avoided as they are hindering any improvement in edema that BLE compression may attempt. We discuss changing her BLE compression to a tighter variation, using ac wraps instead of tubigrips, starting at the toes, and then applying the pt's home velcro wraps. Remove at bedtime. We also discussed getting different socks as I continue to note her ankle socks are pressing into her skin. They plan to change her out of her pants and into a nightgown for now and will discuss the above concerns with the pt's daughter when she arrives later. Labs are pending from this morning. Will confer with Dr. Reaves and, based on results, determine whether antibiotics need to be started for possible cellulitis. Given that wound is unconcerning and limbs are not warm, will hold off on treatment for now. Suspect the erythema is secondary to PVD/stasis dermatitis due to rubber-banding of pant-legs and exacerbated edema. Also encouraged pt to lie down in bed with legs on pillows after lunch. When not in bed, encouraged pt to sit in recliner with legs elevated. Staff notes she is only intermittently compliant with this but that they continually encourage this. Radha is without respiratory or systemic concerns of fluid overload at present. Nursing also mentions some concern with pt's forgetfulness. They note they have conversations with her and she does not recall it even 5 minutes later at times. She chronically, intermittently hallucinates, typically in the evenings. The pt admits this to me but attributes it to medicines that have been given to her to help her sleep. She tells me that everything she has tried for sleep has given her hallucinations. Melatonin is the only medicine that did not cause this, but she noted it was ineffective entirely. She is not concern with insomnia at present -- notes she is sleeping at her baseline level. Her daughter attributes her hallucinations to lack of sleep. Pt has not reported any hallucinations to me recently. Will request ST to eval & treat for cognition for baseline. VSS. Staff is otherwise without concerns.---01/17/24Neel rodriguez is seated in her recliner in her room, her daughter by her side. Her BLE edema is not improved from my last visit, actually appears worse. BLE erythema is unchanged, remains without warmth and ulcer to left cooper is unchanged, without concerns for infection. Discuss with pt and daughter, I will contact Dr. Monteiro's office to discuss next steps. Pt's daughter lets me know she has a f/u appt with cardiology scheduled for tomorrow. I have reached out to Dr. Monteiro's office, let a message with the [employer], and they note she will address at her appt tomorrow. Radha is noted to have severe scratching to [R] thigh. She tells me she is doing it at night and doesn't even realize she is doing this. Her pt's daughter notes this is actually improved than last week. We discuss plan to add PRN KCl dose whenever PRN Metolazone is used. VSS. Staff is without concerns beyond above.---01/20/24Eduarda owusu is seated in her recliner in the common area with her BLE elevated. Her daughter is at her side. We review the changes made during her f/u appt with Dr. Monteiro's office on 01/17 -- she is taking Metolazone 2.5 mg daily x 7 days, then decrease to every other day dosing indeterminately. Metoprolol dose was increased to 200 mg daily. Repeat labs ordered for 01/31. Daughter is in agreement to test BMP tomorrow to make certain potassium supplementation remains adequate. Nursing notes improvement in erythema and condition of left cooper ulceration. Wraps are in place. Edema appears unchanged since my previous visit. Nursing doubts accuracy of recent weights showing up-tick in weight as they believe her edema is improved. They plan to discuss with CNAs making certain they are using the same scale for consistency. VSS except HRs continue 97-107 bpm. Staff is otherwise without concerns.---01/21/24F zeeshan is seated in her recliner in her room, resting comfortably. She tells me she had a good night's sleep last night and that her buttocks has not been bothering her yet today. Labwork from this AM is pending. I am able to assess her BLE and note marked improvement in erythema to BLE although edema appears unchanged. Staff continues to apply ac wraps. VSS. HR improved this morning. Staff is without concerns beyond aforementioned. Per 01/19 therapy notes: Conducted gait training with Rollator ~75' SBA cues for direction and wt shifting. sit/stand to Rollator SBA ---01/24/24Floren ce is seen resting in between walking sessions with therapy. She is a fair historian, without acute concerns but notes frustration that she has not lost any weight with regimen started at the end of last week by Dr. Monteiro. Her BLE erythema appears back to baseline level and her edema is mildly improved with compression, but her weight remains up ~13 lbs. She is noted to need to stop frequently for rest breaks while walking but therapy notes this is not changed since before, not worse but not better. She is not requiring oxygen supplementation during therapy sessions, continues to only wear at night. VSS. Staff is without concerns beyond aforementioned. They will be contacting Dr. Monteiro's office today with weights and lab results to discuss further. Pt will be discharging to her [facility] apartment at [address] [place] on 01/25 with [facility]. Her daughter will be staying with her the first few days/nights. Concepcion Faust, [employer] [address] [place], [address], [place] [facility] 01/25/2024 10:15:26 02/25/2024 text/html 88-year-old cauc female with PMH of HTN, Afib, CHF, CKD-3, IDDM-2, and CARLY (2L O2 ad noc) presenting for rehabilitation due to increased care needs, decreased mobility, and CHF exacerbation, order given by pt's PCP Dr. Gabriel Velasquez on 02/22/24. Radha is known to us from recent rehab stay at this facility from 12/26 to 01/26/24 following hospitalization at [facility] from 12/19 to 12/23/23 for [R] dorsal triquetrum fracture, CHF exacerbation, Afib with RVR, UTI, Urine Retention, Hyperkalemia, debility, and chronic medical conditions. She was initially discharged back to her ILF apartment at [place] but her care needs were too great for that setting, so she moved to our post-acute rehab on 12/27/23, was stabilized with adjustment in her diuretics by Dr. Monteiro (OP cards) and treatment of LE cellulitis with Cephalexin, and discharged back to her [facility] apartment on 01/26/24 with [facility]. It appears she was being managed by OP PCP & Cards for continuing issues with CHF & edema but she became weaker, to the point that family & PCP elected to move her to the rehab unit for more intensive therapy and management of her CHF. PCP Dr. Gabriel Velasquez.DNR comfort measures.ANGELINE is daughter Katelyn.---02/25/24Flore arnoldo is seated in her recliner in her room with her BLE elevated. She is a fair historian with forgetfulness, denies pain but expresses concerns regarding BLE edema that is crying and making her pants wet. She is wearing her velcro wraps that she wears as an OP -- during last stay, we discussed that these did not offer enough compression on their own and her edema improved after application of ac wraps with these wraps over top, offering double layer compression. She is in agreement to doing this again as the crying of her legs really upsets her. She otherwise feels she is fairing well and hopes to get better control of her edema, work with therapy, and return to her ILF apartment once again. Consideration will need to be given that pt is likely more appropriate for ASSISTED setting as her BLE edema is not well-controlled largely due to improper compression. VSS. Staff is without concerns beyond aforementioned. She will f/u with ortho later today and hopes she will be able to stop wearing her [R] wrist splint. Concepcion Faust, FILOMENA [id number] [facility], [place], [address], [place] [facility] 02/26/2024 11:49:49 02/27/2024 text/html 88-year-old cauc female with PMH of HTN, Afib, CHF, CKD-3, IDDM-2, and CARLY (2L O2 ad noc) presenting for rehabilitation due to increased care needs, decreased mobility, and CHF exacerbation, order given by pt's PCP Dr. Gabriel Velasquez on 02/22/24. Radha is known to us from recent rehab stay at this facility from 12/26 to 01/26/24 following a hospitalization at [facility] from 12/19 to 12/23/23 for [R] dorsal triquetrum fracture, CHF exacerbation, Afib with RVR, UTI, Urinary Retention, Hyperkalemia, debility, and chronic medical conditions. She was initially discharged back to her ILF apartment at [place] but her care needs were too great for that setting, so she moved to our post-acute rehab on 12/27/23, was stabilized with adjustment in her diuretics by Dr. Monteiro (OP cards) and treatment of LE cellulitis with Cephalexin, and discharged back to her ILF apartment on 01/26/24 with [facility]. Per her daughter, she was initially doing very well after her return to her apartment but slowly, edema and weeping began to worsen with a slow uptrend in her weight. The family was able to take her out to see her [employer]eder, Dr. Monteiro, in the office and metolazone was increased to daily with some improvement. However, due to worsening in her renal function, it had to be pulled back to only 4 times weekly. Her mobility has been very limited over the last couple of weeks and the decision was made to move her back to rehab. PCP Dr. Gabriel Velasquez.DNR comfort measures.ANGELINE is daughter Katelyn.---02/25/24Flore arnoldo is seated in her recliner in her room with her BLE elevated. She is a fair historian with forgetfulness, denies pain but expresses concerns regarding BLE edema that is crying and making her pants wet. She is wearing her velcro wraps that she wears as an OP -- during last stay, we discussed that these did not offer enough compression on their own and her edema improved after application of ac wraps with these wraps over top, offering double layer compression. She is in agreement to doing this again as the crying of her legs really upsets her. She otherwise feels she is fairing well and hopes to get better control of her edema, work with therapy, and return to her [facility] apartment once again. Consideration will need to be given that pt is likely more appropriate for ASSISTED setting as her BLE edema is not well-controlled largely due to improper compression. VSS. Staff is without concerns beyond aforementioned. She will f/u with ortho later today and hopes she will be able to stop wearing her [R] wrist splint.----02/27/24 patient is confused this am. She complains of nausea and feels like she is going to vomit. She is eating a small bowl of oatmeal for breakfast and drinking some juice as she reports her blood sugar is low again this am causing her to feel bad. Of note, blood sugar was 83 just prior to her eating. Her blood sugar was 40 yesterday am and 73 in the am 02/25/2024. Her daughter is at the facility this am and very upset as she says the patient is never to get sliding scale with her routine humalog insulin in the evening. Lynne says she has discussed this with nursing and was told that the medication error was corrected yesterday. Unfortunately, SSI is still ordered TID to be given in addition to 3 units of humalog (these were the orders followed during her prior rehab stay as well).....Last night getting 5 extra units per sliding scale. The daughter says the patient is very sensitive to any changes in her insulin regimen. I suggested that we stop her routine humalog with meals as well as discontinue her evening time SSI but Lynne feels very strongly that the routine humalog be continued. She is agreeable to cutting back on the toujeo if Radha's blood sugars continue to run low over the next few days. Lynne reports that the patient has been talking about dying often over the last couple of weeks. She says her mom is tired of trying to fight her CHF and is ready to go . Lynne inquires about possible hospice placement and letting her mom return to her [facility] apartment to pass. The family has placed the patient on the AL waiting list as they do not feel that she will be able to return to independent living even if she does make some progress [place] [address] [place], [address], [facility] 02/27/2024 21:33:27 02/28/2024 text/html F/U CHF exacerba tion, increased care needs, decreased mobility, recent [R] dorsal triquetrum fracture, Afib with RVR, UTI, Urinary Retention, Hyperkalemia, debility, and chronic medical conditions.---02/25/24 Radha is seated in her recliner in her room with her BLE elevated. She is a fair historian with forgetfulness, denies pain but expresses concerns regarding BLE edema that is crying and making her pants wet. She is wearing her velcro wraps that she wears as an OP -- during last stay, we discussed that these did not offer enough compression on their own and her edema improved after application of ac wraps with these wraps over top, offering double layer compression. She is in agreement to doing this again as the crying of her legs really upsets her. She otherwise feels she is fairing well and hopes to get better control of her edema, work with therapy, and return to her ILF apartment once again. Consideration will need to be given that pt is likely more appropriate for ASSISTED setting as her BLE edema is not well-controlled largely due to improper compression. VSS. Staff is without concerns beyond aforementioned. She will f/u with ortho later today and hopes she will be able to stop wearing her [R] wrist splint.----02/27/24e patient is confused this am. She complains of nausea and feels like she is going to vomit. She is eating a small bowl of oatmeal for breakfast and drinking some juice as she reports her blood sugar is low again this am causing her to feel bad. Of note, blood sugar was 83 just prior to her eating. Her blood sugar was 40 yesterday am and 73 in the am 02/25/2024. Her daughter is at the facility this am and very upset as she says the patient is never to get sliding scale with her routine humalog insulin in the evening. Lynne says she has discussed this with nursing and was told that the medication error was corrected yesterday. Unfortunately, SSI is still ordered TID to be given in addition to 3 units of humalog (these were the orders followed during her prior rehab stay as well).....Last night getting 5 extra units per sliding scale. The daughter says the patient is very sensitive to any changes in her insulin regimen. I suggested that we stop her routine humalog with meals as well as discontinue her evening time SSI but Lynne feels very strongly that the routine humalog be continued. She is agreeable to cutting back on the toujeo if Radha's blood sugars continue to run low over the next few days. Lynne reports that the patient has been talking about dying often over the last couple of weeks. She says her mom is tired of trying to fight her CHF and is ready to go . Lynne inquires about possible hospice placement and letting her mom return to her [facility] apartment to pass. The family has placed the patient on the AL waiting list as they do not feel that she will be able to return to independent living even if she does make some progress while in rehab.---02/28/24Flore arnoldo is seated in her recliner in her room with her daughter Lynne by her side. Lynne's largest concern is the pt's insulin regimen. She wants to make certain that her sliding scale is only given at breakfast & lunch and that this correction was done yesterday. It was, but the sliding scale we have been using does not precisely match her OP scale, so I will correct this. Lynne does not want her Toujeo held for any reason, even if BS is low. We discuss that the nurse will have the ultimate call to hold the Toujeo if her BS is <90, for instance, as they are familiar with her mother's recent hypoglycemic trend and will make the best judgment they see fit. Lynne is not pleased with this and continues to want her Toujeo given regardless of what her blood sugar is as she states that she Understands it's difficult to get her blood sugar back up, but it's just as difficult to get it back under control once her regimen is changed. Lynne also expresses unhappiness that Radha's Metoprolol was reportedly held. After discussing with her nurse, this is not true and unclear where she heard this. I reassure her that all medication changes will be called to family for approval first as nursing have this flagged on her chart, but that nursing are also able to use their judgment based on the pt's vitals whether administering her Metoprolol is safe. She continues to desire all cardiac medications be managed by Dr. Monteiro. VSS. Staff is without concerns today beyond concerns from daughter. Concepcion Faust, FILOMENA [address] [facility], [place], [address], [facility] 02/28/2024 16:55:48 OBGyn Episode No OBEpisode recorded.
--- OUTSIDE RECORDS SUMMARY | 2024-03-02 20:03 | XMS_ITS | Clinical Summary ---
Author Organization [facility] Address [address] [place] [phone] Care Team Providers Care Elect Equip Maint Eng Name Role Phone Gabriel Jurado MD Primary Care Provider Gabriel Jurado MD Unavailable [phone] Allergies Active Allergy Reactions Criticality Noted Date Comments Diazepam Gabapentin Mental status changes Medium Reaction: CONFUSION, Levetiracetam Mental status changes Medium Reaction: CONFUSION, Levofloxacin Unknown 08/19/2017 Pregabalin Mental status changes Medium Reaction: CONFUSION, Zolpidem Unknown Low 08/19/2017 Medications acetaminophen (TYLENOL) 325 mg tablet take 2 Tablet by oral route every 4 hours as needed 0 0 04/09/19 16 Active loratadine (CLARITIN) 10 mg tablet take 1 tablet by oral route every day PRN 90 3 12/15/19 15 Active pen needle, diabetic (BD ULTRA-FINE TANGELA PEN NEEDLES) 32 gauge x 5/32 needle use as directed 100 each 3 04/30/19 16 Active magnesium gluconate 200 mg tabletIndicatio ns:hypomagnesem ia Take 2 tablets (400 mg total) by mouth daily Active vit A/vit C/vit E/zinc/copper (PRESERVISION AREDS ORAL) Take by mouth 2 (two) times a day Active insulin lispro (HumaLOG) 100 unit/mL injection Inject under the skin 2 (two) times a day with meals Sliding scale Active TOUJEO 300 unit/mL (1.5 mL) pen for injection Inject 10 Units under the skin 10/01/[address] (PROTONIX) 40 mg EC tablet Take 1 tablet (40 mg total) by mouth daily 05/27/19 23 Active oxygenIndicatio ns:Dyspnea Administer 2 L/min into each nostril nightly Active loperamide (IMODIUM) 2 mg capsule Take 1 capsule (2 mg total) by mouth 4 (four) times a day as needed for diarrhea Active apixaban (Eliquis) 2.5 mg tablet Take 1 tablet by mouth twice daily 180 tablet 3 03/22/19 24 Active furosemide (LASIX) 40 mg tabletIndicatio ns:Acute on chronic diastolic (congestive) heart failure (HCC) Take 1 tablet by mouth twice daily 180 tablet 12/20/19 24 Active cholestyramine- aspartame (QUESTRAN LIGHT) 4 gram powder in packet DISSOLVE & TAKE 1 PACKET AND TAKE BY MOUTH ONCE DAILY WITH A MEAL. 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 90 tablet 3 02/09/19 25 2025 Active potassium chloride ER 10 mEq CR tabletIndicatio ns: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) TAKE 4 TABLETS BY MOUTH THREE TIMES DAILY 1080 tablet 02/23/19 25 Active metOLazone (ZAROXOLYN) 5 mg tabletIndicatio ns: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) Take 0.5 tablets (2.5 mg total) by mouth daily for 7 days, THEN 0.5 tablets (2.5 mg total) every other day. Take 30 minutes before the morning dose of furosemide.. 01/18/20 24 2024 Discontinued(D uplicate order) potassium chloride ER 10 mEq CR tabletIndicatio ns:Chronic combined systolic and diastolic heart failure ([facility]) ([facility]) Take 2 tablet/capsule (20 mEq total) by mouth 2 (two) times a day Take 2 additional tablets every day you take a metolazone. 01/18/20 24 2024 Discontinued potassium chloride ER 10 mEq CR tabletIndicatio ns:Chronic combined systolic and diastolic heart failure ([facility]) ([facility]) Take 4 tablet/capsule (40 mEq total) by mouth 3 (three) times a day 02/09/19 25 2024 Discontinued Active Problems Problem Noted Date Diagnosed Date Persistent atrial fibrillation 04/07/2023 Cardiomyopathy 07/08/2022 Impacted cerumen of left ear 09/22/2021 Evaluation of hearing impairment 09/22/2021 Sensorineural hearing loss (SNHL) of both ears 0 09/22/2021 Pre-operative clearance 04/20/2019 Hypokalemia 03/29/2019 Anemia 03/29/2019 Chronic combined systolic an d diastolic heart failure ([facility]) 12/15/2018 Chronic atrial fibrillation 06/06/2018 CARLY (obstructive sleep apnea) 10/14/2017 Pulmonary hypertension 08/19/2017 Chronic anticoagulation 08/19/2017 Venous thromboembolism 08/19/2017 Non-rheumatic mitral regurgitation 08/19/2017 Delirium 03/22/2015 Overview (05/16/2016): Encephalopathy acute Temporary cerebral vascular dysfunction 01/24/20 15 Overview (05/16/2016): Other specified transient cerebral ischemias Pulmonary embolism 01/23/2015 Overview (05/16/2016): Pulmonary emboli Septic pulmonary embolism 01/23/2015 Overview (05/16/2016): Septic pulmonary embolism without acute cor pulmonale, unspecified chronicity Hypercholesterolemia 02/12/2012 Overview (05/16/2016): Elevated cholesterol 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 ([facility]) 02/12/2012 Overview (05/16/2016): Hypertension Diabetes mellitus 02/12/2012 Overview (05/16/2016): Diabetes mellitus Atherosclerosis of coronary artery 02/12/2012 Overview (05/16/2016): CAD (coronary artery disease) Encounters Date Type Department Care Team Description 03/02/[address] [phone] Galo Monteiro MD 02/29/[address] [phone] Ene Tolentino NP Test Results 02/22/[address] [phone] Galo Monteiro MD 02/10/2024 3:30 PM JACK MACHINE OPERATOR Office Visit [address] [phone] Ene Tolentino NP Chronic atrial fibrillation (HCC) (Primary Dx); Edema, lower extremity; 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) 02/03/[address] [phone] Galo Monteiro MD Lab Results 01/20/2024 Orders Only [address] [phone] Noreen Herring NP 01/18/2024 11:00 AM JACK MACHINE OPERATOR Office Visit [address] [phone] Ene Tolentino NP Chronic atrial fibrillation (HCC) (Primary Dx); 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); Edema, lower extremity; Hospital discharge follow-up; Chronic diastolic heart failure (HCC); Persistent atrial fibrillation (HCC) 01/18/2024 Telephone [facility] Cardiology [address] [facility] [address] [place] [phone] Galo Monteiro MD Shortness of Breath; Weight Gain 01/17/2024 Telephone [facility] Cardiology [address] [place] [address] [place] [phone] Galo Monteiro MD Leg Swelling; Med Management 01/03/2024 Telephone [facility] Cardiology [address] [place] [address] [place] [phone] Galo Monteiro MD 12/24/2023 Orders Only [facility] Cardiology [address] [place] [address] [place] [phone] Noreen Herring NP 12/23/2023 Telephone [facility] Cardiology [address] [place] [address] [place] [phone] Galo Monteiro MD Med Management from Last 3 Months Immunizations Name Administration Dates Next Due Pneumococcal Polysaccharide PPV23 07/19/2003 Surgical History Surgery Date Site/Laterality Comments TOTAL ABDOMINAL HYSTERECTOMY Hysterectomy, total CHOLECYSTECTOMY Cholecystectomy CATARACT EXTRACTION Cataract extraction LUMBAR PUNCTURE WO INJECTION , DIAGNOSTIC 02/17/2015 N/A LUMBAR PUNCTURE WO INJECTION , DIAGNOSTIC 06/12/2015 N/A Medical History Medical History Date Comments Hypertension Heart murmur Diabetes mellitus (HCC) Family History Medical History Relation Name Comments Cirrhosis Father childbirth Mother Car Accident Sister Relation Name Status Comments Father (Age 46) Mother (Age 21) Sister (Age 26) Social History Tobacco Use Types Packs/Day Years Used Date Smoking Tobacco: Never Passive Smoke Exposure: Never Smokeless Tobacco: Never Tobacco Cessation:Counseling Given: Not Answered Alcohol Use Standard Drinks/Week Comments No 0 (1 standard drink = 0.6 oz pur e alcohol) Comments Unknown Sex and Gender Information Value Date Recorded Sex Assigned at Not on file Legal Sex Female 7:12 PM JACK MACHINE OPERATOR Gender Identity Not on file Sexual Orientation Not on file Obstetrics History Last Filed Vital Signs Vital Sign Reading Time Taken Comments Blood Pressure 110/62 02/10/2024 3:47 PM JACK MACHINE OPERATOR Pulse 92 02/10/2024 3:47 PM JACK MACHINE OPERATOR Temperature - - Respiratory Rate 15 12/08/2019 9:51 AM CDT Oxygen Saturation 94% 02/10/2024 3:47 PM JACK MACHINE OPERATOR Inhaled Oxygen Concentration - - Weight 93 kg (205 lb) 02/10/2024 3:47 PM JACK MACHINE OPERATOR Height 160 cm (5' 3 ) 02/10/2024 3:47 PM JACK MACHINE OPERATOR Body Mass Index 36.31 02/10/2024 3:47 PM JACK MACHINE OPERATOR Plan of Treatment Health Maintenance Due Date Last Done Comments Albumin Creatinine Ratio, Urine 1934 Depression Screening 1934 Dilated Eye Exam 1934 Foot Exam 1934 DTaP/Tdap/Td Vaccine (1 - Tdap) 1945 Hepatitis B Screening 1952 Zoster Vaccine (1 of 2) 1984 Well Visit 65+ 05/29/1999 Hemoglobin A1C 09/25/2018 03/28/2018 Pneumococcal vaccine 65+ (2 of 2 - PCV) 02/26/2019 02/26/2018, 07/19/2003 Lipid Panel 02/02/2020 02/01/2019, 03/2018, 06/01/2015, Additional history exists Fall Risk Assessment 12/07/2020 12/08/2019 Covid-19 Vaccine (4 - 2023-2 5 season) 2023 06/14/2021, 11/09/2020, 10/19/2020 Influenza Vaccine (#1) 2023 eGFR 01/31/2025 02/01/2024, 11/08, 05/17/2021, Additional history exists Procedures Procedure Name Priority Date/Time Associated Diagnosis Comments BASIC METABOLIC PANEL Routine 02/01/2024 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) CARDIOLOGY DOCUMENT SCAN Routine 12/23/2023 3:03 PM JACK MACHINE OPERATOR CARDIOLOGY DOCUMENT SCAN Routine 12/22/2023 5:00 PM JACK MACHINE OPERATOR CARDIOLOGY DOCUMENT SCAN Routine 12/21/2023 4:54 PM JACK MACHINE OPERATOR CARDIOLOGY DOCUMENT SCAN Routine 12/20/2023 4:38 PM JACK MACHINE OPERATOR LIPID PANEL Routine 02/01/2019 HEMOGLOBIN A1C Routine 03/28/2018 from Last 3 Months or Most Recently Relevant to Health Maintenance Results * (ABNORMAL) Basic metabolic panel (02/01/2024) SCRIBED Sodium 141 135 - 146 mmol/L EXTERNAL LAB SCRIBED Potassium 3.6 3.5 - 5.3 mmol/L EXTERNAL LAB SCRIBED Chloride 105 99 - 110 mmol/L EXTERNAL LAB SCRIBED Carbon Dioxide 28 20 - 32 mmol/L EXTERNAL LAB SCRIBED Anion Gap N/A N/A mmol/L EXTERNAL LAB SCRIBED Urea Nitrogen (BUN) 39(A) 7 - 25 mg/dl EXTERNAL LAB SCRIBED Creatinine 1.62(A) 0.60 - 0.95 mg/dl EXTERNAL LAB SCRIBED Glucose 114(A) 65 - 99 mg/dl EXTERNAL LAB SCRIBED Calcium 8.6 8.6 - 10.4 mg/dl EXTERNAL LAB SCRIBED eGFR in N/A N/A EXTERNAL LAB SCRIBED eGFR in NonAfrican Bulgarian 30 > or = 60 EXTERNAL LAB Blood 02/01/2024 Ene Tolentino NP LAB BLOOD ORDERABLES [place] Result EXTERNAL LAB * Cardiology Document Scan (12/23/2023 3:03 PM JACK MACHINE OPERATOR) Anatomical Region Laterality Modality Other Noreen Herring NP CV CARDIAC SERVICES PROCEDUR ES Final Result * Cardiology Document Scan (12/22/2023 5:00 PM JACK MACHINE OPERATOR) Anatomical Region Laterality Modality Other Galo Monteiro MD CV CARDIAC SERVICES PROCE DURES Final Result * Cardiology Document Scan (12/21/2023 4:54 PM JACK MACHINE OPERATOR) Anatomical Region Laterality Modality Other Noreen Herring NP CV CARDIAC SERVICES PROCEDUR ES Final Result * Cardiology Document Scan (12/20/2023 4:38 PM JACK MACHINE OPERATOR) Anatomical Region Laterality Modality Other Noreen Herring NP CV CARDIAC SERVICES PROCEDUR ES Final Result * Lipid panel (02/01/2019) SCRIBED Cholesterol, Total 69 <200 EXTERNAL LAB SCRIBED HDL 36 >40 EXTERNAL LAB SCRIBED LDL 20 <100 EXTERNAL LAB SCRIBED Triglycerides 64 <150 EXTERNAL LAB Blood specimen (specimen) Historical Provider LAB BLOOD ORDERABLES Edit ed Result - Final EXTERNAL LAB * Hemoglobin A1c (03/28/2018) Blood specimen (specimen) Historical Provider LAB BLOOD ORDERABLES [place] Result from Last 3 Months or Most Recently Relevant to Health Maintenance Insurance MEDICARE [facility] MEDICARE COMMERCIAL [facility] MEDICARE [facility] Care Teams Elect Equip Maint Eng Relationship Specialty Start Date End Date Gabriel Jurado MD [address] [place] [address] PCP - General Family Medicine 05/12/21 Gabriel Jurado MD [address] [place] [address] Family Medicine 05/12/21
--- OUTSIDE RECORDS SUMMARY | 2024-03-02 20:03 | XMS_ITS | Continuity of Care Document ---
Author Organization [facility] [place] [facility] Address [address] [place] [address] Care Team Providers Care Security Tester Name Role Phone [facility] FAX OTHER RAE VELASQUEZ Primary Care Provider YVROSE SHAIKH Orthopedic Surgeon JEREL CALVO Residential Housekeeper DUY BONNER Urologist Assessment Encounter Date Assessment Date Assessment LastModified by Organization Details LastModified Time 02/28/2024 02/28/2024 Labs pending from this AM. Add TMC cream BID to bilateral thighs. Corrected sliding scale order to reflect home regimen. Fax weights & labs to Dr. Monteiro's office twice a week and f/u with phone call for any change in orders. Not available 02/28/2024 16:55:07 Plan of Treatment Reminders Order Date Submit Date Provider Last Modified By Organization Details Last Modified Time Details Appointments None record ed. Lab None record ed. Referral None record ed. Procedures None record ed. Surgeries None record ed. Imaging None record ed. Medication Orders None record ed. Patient TargetsNo targets recorded. Patient Instructions Encounter Date Encounter Id Patient Instructions Last Modified By Organization Details Last Modified Time 02/28/2024 [id number] I spent {{ 36#}} minutes providing care to the patient today. More than 50% of that time was spent in discussing the expected course of the disease, discussing prognosis, coordinating care and counseling of the patient/family. [email or web address] Not available 02/28/2024 16:54:43 Reason for Referral None Reported. Procedures Surgical History Date Name Laterality Status Provider Name and Address Organization Details Recorded Time bilateral cataract extraction completed Chad Coates [place] [facility] 01/04/2024 01:16:01 cholecystectomy completed Chad Coates [place] [facility] 01/04/2024 01:16:08 Hysterectomy/bladde r repair completed Chad Coates [facility] 01/04/2024 01:16:17 extended right hemicolectomy completed Chad Coates [facility] 01/04/2024 01:16:43 Imaging Results None recorded. Procedure Notes None recorded. Medical Equipment None Reported. Allergies Allergen ID Allergen Name Allergen Category Reaction Reaction Severity Criticality Documentation Date Start Date Code Code System Note Provider Name and Address Organization Details Recorded Time [id number] [id number] 2824e cetirizin e medicatio n Not available Not available Not available 01/01/2024 48585 RxNorm Not Available Not Available Not Available [id number] 873712992 [id number] 2824e diazepam medicatio n Not available Not available Not available 01/01/2024 3322 RxNorm Not Available Not Available Not Available [id number] 754609766 [id number] 2824e gabapenti n medicatio n Not available Not available Not available 01/01/2024 49755 RxNorm Not Available Not Available Not Available [id number] 122790312 [id number] 2824e hydrocodo ne Not available Not available Not available Not available 01/01/2024 5489 RxNorm Not Available Not Available Not Available [id number] 227108231 [id number] 2824e Levaquin medicatio n Not available Not available Not available 01/01/2024 97639 2 RxNorm Not Available Not Available Not Available [id number] [id number] 2824e levetirac etam medicatio n Not available Not available Not available 01/01/2024 63378 7 RxNorm Not Available Not Available Not Available [id number] 015254708 [id number] 2824e Lyrica medicatio n Not available Not available Not available 01/01/2024 21409 1 RxNorm Not Available Not Available Not Available [id number] 256028792 [id number] 2824e zolpidem medicatio n Not available Not available Not available 01/01/2024 37377 RxNorm Not Available Not Available Not Available [id number] 024749410 [id number] 2824e adhesive tape environme nt,medica tion Not available Not available Not available 01/01/2024 35579 UNK Not Available Not Available Not Available [...] t Available Vitals Date Recorded Body height Respiratory rate Body mass index (BMI) Body weight Heart rate Body temperature Oxygen saturation Oxygen saturation in Arterial blood by Pulse oximetry Systolic blood pressure Diastolic blood pressure Provider Name and Address Organization Details Last Updated DateTime 5 160.02 cm 18 /min 36.7 kg/m2 98855.3 4 g 80 /min 98.2 [degF] 99 % 99 % 95 mm[Hg] 56 mm[Hg] [place] [address] [place], [address], [place] [facility] 16:36:21 Social History Question Answer Notes LastModified by Organizat ion Details LastModified Time Tobacco Smoking Status Never Smoker Chad Coates null, [place] [facility] 01/04/2024 01:17:40 What Is Your Level Of Alcohol Consumption? None Information not available 01/04/2024 What Is Your Code Status? DNR [email or web address] Information not available 01/01/2024 Do You Have A Medical Power Of Panelboard Operator? Yes Katelyn Bird [email or web address] Information not available 01/01/2024 What Was The [...] SNOMED-CT Code Diagnosis ICD10 Code Diagnosis Note [id number] Concepcion Faust NP [place] [address] [place] [address] 02/25/2024 09:01:54 02/26/2024 11:49:53 Acute on chronic combined systolic and diastolic heart failure 8307625558 72278 I50.43 Continues on OP dose of Lasix [...] extremity due to chronic peripheral venous hypertension 6869431189 09319 L97.909 SEE ABOVE...Pt has multiple venous ulcers sec to ruptured blisters to BLE. Continue local wound care and SWM to eval & treat. Hallucinations 2085744 R 44.3 Long-term and recurrent. Pt notes typically occurs at night and she believes are secondary to sleep medication s. As such, she does not want to take any for her insomnia. She notes the only medication that did not cause hallucinat ions was Melatonin, but that this medication was ineffectiv e.ST will follow once again. Minimal co gnitive impairment 556966672 R41.89 SEE ABOVE... Closed fra cture of triquetral bone of right wrist 4290657130 6394615 S62.114D Specific injury unclear, imaging noted questiona ble small acute fracture of dorsal triquetrum on lateral view. She has been placed in splint.Per ortho (Dr. Shaikh) WBAT.Marla nue therapies. Continue PRN APAP for pain.She will f/u with Dr. Shaikh today and hopes she will be released from wearing splint. Atrial fib rillation with rapid ventricular response 6960027162 73744 I48.91 Stable at present. Continue Metoprolol .Continue Eliquis for VTE ppx.F/U with Dr. Monteiro) as directed. Acute urin kaitlyn tract infection 226102746 N39.0 12/19 Urine cx grew K. pneumonia, tripp-sensit yuri. She was treated with 3 days of IV antibiotic s and discharged on 2 days of Augmentin. Symptoms have resolved. Monitor for recurrence .Discussed with patient avoidance of Ditropan going forward. 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 Chronic ki dney disease stage 3 536952488 N18.30 Per history. Baseline Cr unclear.Tr end labs and avoid additional nephrotoxi ns. Type 2 andrew betes mellitus 54512431 E11.69 Per daughter Katelyn, well-contr olled on current regimen.Co ntinue Toujeo 10 units daily and insulin lispro 3 units TID with meals with additional SSI. No insulin is given if BS is <100.Monit or blood sugars and continue LCS diet. Hypomagnesemia 071668216 E83.42 Stable. Continue supplement and trend level. Gastroesop hageal reflux disease without esophagitis 266235554 K21.9 Stable. Continue Protonix. Obstructiv e sleep apnea syndrome 63795595 G47.33 Noncomplia nt with CPAP. Instead utilizes 2L NC at nighttime. Sleep rela andrea hypoxemia 2951312988 48066 G47.36 SEE ABOVE... Allergic rhinitis 885420 04 J30.9 Stable. Changed Loratadine to PRN last visit and she tolerated. Now back to routine. Consider changing to PRN once again. Retention of urine 99216 4002 R33.9 Pt was noted to have [...] U with Dr. Duy Bonner PRN. At [facility] ed risk of polypharmacy 902699119 Z91.89 Unclear dx warranting use of Cholestyra mine as no history of documented hyperlipid emia but reported as home medication . Not for resuscitation 30 9913470 Z66 DNR. Confirmed today. 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 Continue foam dressing and monitor. Offload pressure. [id number] Shonda Reaves, DO [facility] [address] [place] [address] 02/27/2024 08:58:41 02/27/2024 21:33:30 Acute on chronic combined systolic and diastolic heart failure 6450289891 90195 I50.43 Continues on OP dose of Lasix [...] extremity due to chronic peripheral venous hypertension 0248169406 15310 L97.909 SEE ABOVE...Pt has multiple venous ulcers sec to ruptured blisters to BLE. Continue local wound care and SWM to eval & treat. Hallucinations 5765554 R 44.3 Long-term and recurrent. Pt notes typically occurs at night and she believes are secondary to sleep medication s. As such, she does not want to take any for her insomnia. She notes the only medication that did not cause hallucinat ions was Melatonin, but that this medication was ineffectiv e.ST will follow once again Minimal co gnitive impairment 574197547 R41.89 SEE ABOVE...in creased confusion noted this am - unclear if this is related to poor sleep hygiene, hypoglycem ia or something else. long discussion with daughter today with offer to get stat labs. She is agreeable to close observatio n for now with plans for labs in am and adjustment in insulin regimen Closed fra cture of triquetral bone of right wrist 8889150411 6535772 S62.114D Specific injury unclear, imaging noted questiona ble small acute fracture of dorsal triquetrum on lateral view. She has been placed in splint.Per ortho (Dr. Shaikh) WBAT.Marla nue therapies. Continue PRN APAP for pain and wrist splinting Atrial fib rillation with rapid ventricular response 8599600971 64263 I48.91 Stable at present. Continue Metoprolol .Continue Eliquis for VTE ppx.F/U with Dr. Monteiro Acute urin kaitlyn tract infection 131209545 N39.0 11 Urine cx grew K. pneumonia, tripp-sensit yuri. She was treated with 3 days of IV antibiotic s and discharged on 2 days of Augmentin. Symptoms have resolved. Monitor for recurrence .Discussed with patient avoidance of Ditropan going forward. 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 Chronic ki dney disease stage 3 922415892 N18.30 Per history. Baseline Cr unclear.Tr end labs and avoid additional nephrotoxi ns. Type 2 andrew betes mellitus 96331158 E11.69 Per daughter Katelyn, well-contr olled on current regimen.Co ntinue Toujeo 10 units daily and insulin lispro 3 units TID with meals with additional SSI. No insulin is given if BS is <100.Monit or blood sugars and continue LCS diet. Hypomagnesemia 129372993 E83.42 Stable. Continue supplement and trend level. Gastroesop hageal reflux disease without esophagitis 044242229 K21.9 Stable. Continue Protonix. 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 Continue foam dressing and monitor. Offload pressure. Obstructiv e sleep apnea syndrome 33762137 G47.33 Noncomplia nt with CPAP. Instead utilizes 2L NC at nighttime. Sleep rela andrea hypoxemia 8011020948 42589 G47.36 SEE ABOVE... Allergic rhinitis 838988 04 J30.9 Stable. Changed Loratadine to PRN last visit and she tolerated. Now back to routine. Consider changing to PRN once again. Retention of urine 80044 4002 R33.9 Pt was noted to have [...] forwardF/U with Dr. Duy Bonner PRN. At [facility] risk of polypharmacy 391974937 Z91.89 Unclear dx warranting use of Cholestyra mine as no history of documented hyperlipid emia but reported as home medication . [id number] Concepcion Faust NP [address] [address] 02/28/2024 13:30:53 02/28/2024 16:55:52 Acute on chronic combined systolic and diastolic heart failure 3791758154 32365 I50.43 Continues on OP dose of Lasix [...] extremity due to chronic peripheral venous hypertension 7691027191 30792 L97.909 SEE ABOVE...Pt has multiple venous ulcers sec to ruptured blisters to BLE. Continue local wound care and SWM to eval & treat. Hallucinations 3254865 R 44.3 Long-term and recurrent. Pt notes typically occurs at night and she believes are secondary to sleep medication s. As such, she does not want to take any for her insomnia. She notes the only medication that did not cause hallucinat ions was Melatonin, but that this medication was ineffectiv e.ST will follow once again. Minimal co gnitive impairment 653062553 R41.89 SEE ABOVE... Closed fra cture of triquetral bone of right wrist 3221630775 8985978 S62.114D Specific injury unclear, imaging noted questiona ble small acute fracture of dorsal triquetrum on lateral view. She has been placed in splint.Per ortho (Dr. Shaikh) WBAT and can wear splint PRN.Contin ue therapies. Continue PRN APAP for pain.F/U with Dr. Shaikh PRN. Atrial fib rillation with rapid ventricular response 7514157375 20929 I48.91 Stable at present. Continue Metoprolol .Continue Eliquis for VTE ppx.F/U with Dr. Monteiro. Acute urin kaitlyn tract infection 397319875 N39.0 12/19 Urine cx grew K. pneumonia, tripp-sensit yuri. She was treated with 3 days of IV antibiotic s and discharged on 2 days of Augmentin. Symptoms have resolved. Monitor for recurrence .Discussed with patient avoidance of Ditropan going forward. 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 Chronic ki dney disease stage 3 271219539 N18.30 Per history. Baseline Cr unclear.Tr end labs and avoid additional nephrotoxi ns. Type 2 andrew betes mellitus 96118846 E11.69 Per daughter Katelyn, well-contr olled on current regimen.Co ntinue Toujeo 10 units daily and insulin lispro 3 units TID with meals with additional SSI with breakfast and lunch only. No insulin is given if BS is <130.Monit or blood sugars and continue LCS diet. Hypomagnesemia 025627876 E83.42 Stable. Continue supplement and trend level. Gastroesop hageal reflux disease without esophagitis 981008780 K21.9 Stable. Continue Protonix. 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 Continue foam dressing and monitor. Offload pressure. Obstructiv e sleep apnea syndrome 67967054 G47.33 Noncomplia nt with CPAP. Instead utilizes 2L NC at nighttime. Sleep rela andrea hypoxemia 9122778419 96241 G47.36 SEE ABOVE... Allergic rhinitis 120085 04 J30.9 Stable. Changed Loratadine to PRN last visit and she tolerated. Now back to routine. Consider changing to PRN once again. Retention of urine 23974 4002 R33.9 Pt was noted to have [...] forwardF/U with Dr. Duy Bonner PRN. At [facility] risk of polypharmacy 580390019 Z91.89 Unclear dx warranting use of Cholestyra mine as no history of documented hyperlipid emia but reported as home medication . Contact dermatitis 26446 004 L25.9 Add TMC cream BID to bilateral thighs. Health Concerns Section Related Observation LastModified by Organization Detai ls LastModified Time None Recorded Concern Status LastModified by Organization Details LastModified Time None Recorded Payers Encounter Date Sequence Insurance Name Policy Number Policy Acosta Covered Member ID Acosta Member ID Guarantor Name 02/28/2024 1 [place] Radha Salmeron [id number] 2 Radha Salmeron 02/28/2024 2 [facility] Radha Salmeron [id number] Radha Gilson Jaron Notes Date Note Type Note Provider Name and Address Organization Details Recorded Time 02/28/2024 text/html F/U CHF exacerbation, increased care needs, decreased mobility, recent [R] dorsal triquetrum fracture, Afib with RVR, UTI, Urinary Retention, Hyperkalemia, debility, and chronic medical conditions.---Radha is seated in her recliner in her [...] work with therapy, and return to her [facility] apartment once again. Consideration will need to be given that pt is likely more appropriate for [facility] setting as her BLE edema is not well-controlled largely due to improper compression. VSS. Staff is without concerns beyond aforementioned. She will f/u with ortho later today and hopes she will be able to stop wearing her [R] wrist splint.----02/27/24T he patient is confused this am. She complains [...] her routine humalog insulin in the evening. Cinthiaivon says she has discussed this with nursing [...] and letting her mom return to her [facility] apartment to pass. The family has placed the patient on the [place] waiting list as they do not feel that she will be able to return to independent living even if she does make some progress while in rehab.---02/28/24Freddie thomas is seated in her recliner in her [...] beyond concerns from daughter. Concepcion Faust, [place] [address] [facility], [place], [address], [facility] - [facility] 02/28/2024 16:55:48 OBGyn Episode No OBEpisode recorded.
--- OUTSIDE RECORDS SUMMARY | 2024-03-02 20:03 | XMS_ITS | Encounter Summary ---
Author Organization [facility] Healthcare Address [address] [place] [address] Care Team Providers Care Reinforcer Name Role Phone Gabriel Jurado MD Primary Care Provider Gabriel Jurado MD Unavailable [phone] Reason for Visit * Reason Onset Date Comments Test Results 02/29/2024 Encounter Details Date Type Department Care Team (Late st Contact Info) Description 02/29/2024 Telephone [facility] Medical Group Cardiology [address] [place] [address] Ene Tolentino NP [address] [place] [address] Test Results Social History Tobacco Use Types Packs/Day Years Used Date Smoking Tobacco: Never Passive Smoke Exposure: Never Smokeless Tobacco: Never Alcohol Use Standard Drinks/Week Comments No 0 (1 standard drink = 0.6 oz pur e alcohol) Comments Unknown Sex and Gender Information Value Date Recorded Sex Assigned at Not on file Legal Sex Female 7:12 PM [employer] SERVICE MANAGER Gender Identity Not on file Sexual Orientation Not on file documented as of this encounter Miscellaneous Notes * Telephone Encounter - Talia Jordan RN - 02/29/2024 1:42 PM [employer]AUR[employer] SERVICE MANAGER Faxed orders to [place] to have drawn right before pts upcoming appt with [facility] on 03/29. [employer] SERVICE MANAGER * Telephone Encounter - Ene Tolentino NP - 02/29/2024 1:26 PM [employer] SERVICE MANAGER This is continuation of messages on telephone thread dated 02/22/2024. In regards to copy of labs received from 02/25/2024, he is labs do not yet reflect the most recent medication change. Please askthe facility if they will repeat a CMP again in one month. Thank you. [employer] SERVICE MANAGER documented in this encounter Plan of Treatment Not on file documented as of this encounter Visit Diagnoses Not on filedocumented in this encounter Care Teams Reinforcer Relationship Specialty Start Date End Date Gabriel Jurado MD [address] [place] [address] PCP - General Family Medicine 05/12/21 Gabriel Jurado MD [address] [place] [address] Family Medicine 05/12/21 documented as of this encounter
--- OUTSIDE RECORDS SUMMARY | 2024-03-02 20:03 | XMS_ITS | Referral Summary ---
Author Organization [facility] Address [address] [place] [address] Care Team Providers Care Tar [place]el Name Role Phone Gabriel Jurado MD Primary Care Provider Gabriel Jurado MD Unavailable [phone] Encounters Date Type Department Care Team Description 03/02/2024 Telephone [facility] Cardiology [address] [place] [address] [phone] Galo Monteiro MD 02/29/2024 Telephone [facility] Cardiology [address] [place] [address] [address] [place] [phone] Ene Tolentino NP Test Results 02/22/2024 Telephone [facility] Cardiology [address] [place] [address] [address] [place] [address] [phone] Galo Monteiro MD 02/10/2024 3:30 PM [employer] Office Visit [facility] Cardiology [address] [place] [address] [address] [place] [address] [phone] Ene Tolentino NP Chronic atrial fibrillation (HCC) (Primary Dx); Edema, lower extremity; 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) 02/03/2024 Telephone [facility] Cardiology [address] [facility] [address] [place] [address] [phone] Galo Monteiro MD Lab Results 01/20/2024 Orders Only [facility] Cardiology [address] [place] [address] [place] [address] [phone] Noreen Herring, FILOMENA 01/18/2024 Telephone [place] [address] [place] [phone] Galo Monteiro MD Shortness of Breath; Weight Gain 01/18/2024 11:00 AM [employer] Office Visit [place] [address] [place] [phone] Ene Tolentino NP Chronic atrial fibrillation (HCC) (Primary Dx); 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); Edema, lower extremity; Hospital discharge follow-up; Chronic diastolic heart failure (HCC); Persistent atrial fibrillation (HCC) 01/17/2024 Telephone [place] [address] [place] [address] [phone] Galo Monteiro MD Leg Swelling; Med Management 01/03/2024 Telephone [place] [address] [place] [phone] Galo Monteiro MD 12/24/2023 Orders Only [place] [address] [place] [address] [phone] Noreen Herring NP 12/23/2023 Telephone [place] [address] [place] [phone] Galo Monteiro MD Med Management from Last 3 Months Allergies Active Allergy Reactions Criticality Noted Date [...] Inject 10 Units under the skin 10/01/[address] (PROTONIX) 40 mg EC [...] and diastolic heart failure (CMS/HCC) (HCC) Take 2 tablet/capsule (20 mEq total) by mouth 2 (two) times a day Take 2 additional tablets every day you take a metolazone. 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[facility]) 02/12/2012 Overview (05/16/2016): Hypertension Diabetes mellitus 02/12/2012 Overview (05/16/2016): Diabetes mellitus Atherosclerosis of coronary artery 02/12/2012 Overview (05/16/2016): CAD (coronary artery disease) Immunizations Name Administration Dates Next Due Pneumococcal Polysaccharide PPV23 07/19/2003 Social History Tobacco Use Types Packs/Day Years Used Date Smoking Tobacco: Never Passive Smoke Exposure: Never Smokeless Tobacco: Never Tobacco Cessation:Counseling Given: Not Answered Alcohol Use Standard Drinks/Week Comments No 0 (1 standard drink = 0.6 oz pur e alcohol) Comments Unknown Sex and Gender Information Value Date Recorded Sex Assigned at Not on file Legal Sex Female 7:12 PM [employer] Gender Identity Not on file Sexual Orientation Not on file Last Filed Vital Signs Vital Sign Reading Time Taken Comments Blood Pressure 110/62 02/10/2024 3:47 PM [employer] Pulse 92 02/10/2024 3:47 PM [employer] Temperature - - Respiratory Rate 15 12/08/2019 9:51 AM CDT Oxygen Saturation 94% 02/10/2024 3:47 PM [employer] Inhaled Oxygen Concentration - - Weight 93 kg (205 lb) 02/10/2024 3:47 PM [employer] Height 160 cm (5' 3 ) 02/10/2024 3:47 PM [employer] Body Mass Index 36.31 02/10/2024 3:47 PM [employer] Plan of Treatment Not on file Procedures Procedure Name Priority Date/Time Associated Diagnosis Comments BASIC METABOLIC PANEL Routine 02/01/2024 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) CARDIOLOGY DOCUMENT SCAN Routine 12/23/2023 3:03 PM [employer] CARDIOLOGY DOCUMENT SCAN Routine 12/22/2023 5:00 PM [employer] CARDIOLOGY DOCUMENT SCAN Routine 12/21/2023 4:54 PM [employer] CARDIOLOGY DOCUMENT SCAN Routine 12/20/2023 4:38 PM [employer] LIPID PANEL Routine 02/01/2019 HEMOGLOBIN A1C Routine [...] N/A EXTERNAL LAB SCRIBED eGFR in NonAfrican French 30 > or = 60 EXTERNAL LAB Blood 02/01/2024 us Ene Tolentino NP LAB BLOOD ORDERABLES [place] l Result EXTERNAL LAB * Cardiology Document Scan (12/23/2023 3:03 PM [employer]) Anatomical Region Laterality Modality Other us Noreen Herring NP CV CARDIAC SERVICES PROCEDUR ES Final Result * Cardiology Document Scan (12/22/2023 5:00 PM [employer]) Anatomical Region Laterality Modality Other Galo Monteiro MD CV CARDIAC SERVICES PROCE DURES Final Result * Cardiology Document Scan (12/21/2023 4:54 PM [employer]) Anatomical Region Laterality Modality Other Noreen Herring NP CV CARDIAC SERVICES PROCEDUR ES Final Result * Cardiology Document Scan (12/20/2023 4:38 PM [employer]) Anatomical Region Laterality Modality Other Noreen Herring NP CV CARDIAC SERVICES PROCEDUR ES Final Result * Lipid panel (02/01/2019) SCRIBED Cholesterol, Total 69 <200 EXTERNAL LAB SCRIBED HDL 36 >40 EXTERNAL LAB SCRIBED LDL 20 <100 EXTERNAL LAB SCRIBED Triglycerides 64 <150 EXTERNAL LAB Blood specimen (specimen) Result [facility] Historical Provider LAB BLOOD ORDERABLES Edit ed Result - Final EXTERNAL LAB * Hemoglobin A1c (03/28/2018) Blood specimen (specimen) Result [facility] Historical Provider LAB BLOOD ORDERABLES [place] l Result from Last 3 Months or Most Recently Relevant to Health Maintenance Insurance MEDICARE [facility] MEDICARE [place]CIAL [place] [address] [place] [id number] [place] [address] , [place] [id number] MEDICARE [facility] Care Teams [place] Relationship Specialty Start Date End Date Gabriel Jurado MD [address] [place] [address] PCP - General Family Medicine 05/12/21 Gabriel Jurado MD [address] [place] [address] Family Medicine 05/12/21
--- OUTSIDE RECORDS SUMMARY | 2024-03-02 20:03 | XMS_ITS | Encounter Summary ---
Author Organization [employer] Address [address] [place] [address] Care Team Providers Care Microarray Analyst Name Role Phone Gabriel Jurado MD Primary Care Provider [phone] Encounter Details Date Type Department Care Team (Late st Contact Info) Description 09/01/2017 Lab Requisition [facility] Laboratory Services [address] [place] [address] [place] [address] [place] [address] Encounter for general adult medical [...] Procedure Name Priority Date/Time Associated Diagnosis Comments MAGNESIUM LEVEL Routine 09/01/2017 6:31 AM CDT Encounter for general adult medical examination without abnormal findings documented in this encounter Results * (ABNORMAL) MAGNESIUM LEVEL (09/01/2017 6:31 AM CDT) MAGNESIUM 1.5(L) 1.6 - 2.4 mg/dL 09/01/2017 10:29 AM CDT [facility] [employer] [facility] Blood Venipuncture / Unknown 09/01/2017 6:31 AM CDT 09/01/2017 9:17 AM CDT Geovani De Jesus MD CHEMISTRY ORDERABLES Final R esult [facility] LABORATORY SERVICES [facility]# [id number] [address] [place] [address] documented in this encounter Visit Diagnoses Diagnosis Encounter for general adult medical examination without abnormal findings Routine general medical examination at a health care facility documented in this encounter Care Teams Microarray Analyst Relationship Specialty Start Date End Date Gabriel Jurado MD [address] [facility] [address] [place] [address] PCP - General Family Practice 04/04/19 documented as of this encounter
--- OUTSIDE RECORDS SUMMARY | 2024-03-02 20:04 | XMS_ITS | Encounter Summary ---
Author Organization [employer] Address [address] [place] [address] Care Team Providers Care Sander Portable Machine Name Role Phone Gabriel Jurado MD Primary Care Provider Encounter Details Date Type Department Care Team (Late st Contact Info) Description 08/30/2017 Lab Requisition [facility] Laboratory Services [address] [place] [address] Geovani De Jesus MD [address] [place] [address] Encounter for general adult medical [...] Procedure Name Priority Date/Time Associated Diagnosis Comments IRON, TIBC, AND PERCENT SATURATION Routine 08/30/2017 6:49 AM CDT Encounter for general adult medical examination without abnormal findings CBC WITH DIFFERENTIAL Routine 08/30/2017 6:49 AM CDT Encounter for general adult medical examination without abnormal findings PHOSPHORUS Routine 08/30/2017 6:49 AM CDT Encounter for general adult medical examination without abnormal findings MAGNESIUM LEVEL Routine 08/30/2017 6:49 AM CDT Encounter for general adult medical examination without abnormal findings BASIC METABOLIC PANEL Routine 08/30/2017 6:49 AM CDT Encounter for general adult medical examination without abnormal findings documented in this encounter Results * (ABNORMAL) IRON, TIBC, AND PERCENT SATURATION (08/30/2017 6:49 AM CDT) Pathologist [facility] IRON 15(L) 37 - 145 ug/dL 08/30/2017 11:52 AM CDT [facility] LABORATORY SERVICES [facility] TIBC 411 250 - 450 ug/dL 08/30/2017 11:52 AM CDT [facility] LABORATORY [facility] IRON % SATURATION 4(L) 15 - 50 % 08/30/2017 11:52 AM T [facility] LABORATORY [facility] TRANSFERRIN 324 200 - 360 mg/dL 08/30/2017 11:52 AM T [facility] LABORATORY SERVICES [facility] Blood Venipuncture / Unknown 08/30/2017 6:49 AM CDT 08/30/2017 9:24 AM CDT us Geovani De Jesus MD CHEMISTRY ORDERABLES Final R esult [facility]# [id number] [address] [facility] [place] [address] * (ABNORMAL) CBC WITH DIFFERENTIAL (08/30/2017 6:49 AM CDT) Pathologist [facility] WBC 9.1 4.0 - 9.8 K/uL 08/30/2017 10:55 AM CDT [facility] [employer] [facility] RBC 4.03 3.90 - 4.90 M/uL 08/30/2017 10:55 AM CDT [facility] LABORATORY [facility] HEMOGLOBIN 8.0(L) 11.8 - 14.8 g/dL 08/30/2017 10:55 AM CDT [facility] LABORATORY [facility] HEMATOCRIT 27.5(L) 35.5 - 44.0 % 08/30/2017 10:55 AM T [facility] LABORATORY [facility] MCV 68.2(L) 82.0 - 99.0 fL 08/30/2017 10:55 AM CDT [employer] LABORATORY SERVICES - [facility] MCH 19.9(L) 27.2 - 32.6 pg 08/30/2017 10:55 AM CDT [employer] [facility]ORATORY SERVICES - [facility] MCHC 29.1(L) 31.5 - 35.5 g/dL 08/30/2017 10:55 AM CDT [employer] - [facility] RDW 17.9(H) 11.5 - 14.5 % 08/30/2017 10:55 AM CDT [facility] - [facility] RDW-STDEV 43.1 37.1 - 48.7 fL 08/30/2017 10:55 AM CDT [facility] LABORATORY SERVICES - . [facility] PLATELETS 327 140 - 350 K/uL 08/30/2017 10:55 AM CDT [facility]ATORY SERVICES - [facility] MPV 9.7 9.3 - 12.4 fL 08/30/2017 10:55 AM [employer] LABORATORY SERVICES - . [facility] NEUTROPHILS 39 % 08/30/2017 10:55 AM CDT [facility]ATORY SERVICES - . [facility] LYMPHOCYTES 42 % 08/30/2017 10:55 AM CDT [facility] - [facility] MONOCYTES 14 % 08/30/2017 10:55 AM CDT [facility]ATORY SERVICES - . [facility] EOSINOPHILS 5 % 08/30/2017 10:55 AM CDT [facility]AT[facility] SERVICES - . [facility] BASOPHILS 0 % 08/30/2017 10:55 AM CDT [facility] LABORATORY SERVICES - . [facility] IMMATURE GRANULOCYTES 0 % 08/30/2017 10:55 AM CDT [facility] LABORATORY SERVICES - . [facility] NEUTROPHIL ABSOLUTE 3.52 1.90 - 7.00 K/uL 08/30/2017 10:55 AM CDT [facility] LABORATORY SERVICES - . [facility] LYMPHOCYTE ABSOLUTE 3.80 0.70 - 4.50 K/uL 08/30/2017 10:55 AM CDT [facility] MONOCYTE ABSOLUTE 1.26 0.10 - 1.30 K/uL 08/30/2017 10:55 AM CDT [facility] EOSINOPHIL ABSOLUTE 0.48 0.00 - 0.70 K/uL 08/30/2017 10:55 AM CDT [facility]AT[facility] - . [facility] BASOPHILS ABSOLUTE 0.04 0.00 - 0.20 K/uL 08/30/2017 10:55 AM CDT [facility] LABORATORY [facility] IMMATURE GRANULOCYTES ABSOLUTE 0.02 0.00 - 0.03 K/uL 08/30/2017 10:55 AM CDT [facility] LABORATORY [facility] Blood Venipuncture / Unknown 08/30/2017 6:49 AM CDT 08/30/2017 9:24 AM CDT Geovani De Jesus MD HEMATOLOGY ORDERABLES Final Result [facility] CLIA# [id number] [address] [place] [address] * PHOSPHORUS (08/30/2017 6:49 AM CDT) PHOSPHORUS 3.3 2.5 - 4.5 mg/dL 08/30/2017 11:52 AM CDT [facility] LABORATORY [facility] Blood Venipuncture / Unknown 08/30/2017 6:49 AM CDT 08/30/2017 9:24 AM CDT Geovani De Jesus MD CHEMISTRY ORDERABLES Final R esult Performing Organization Address [facility] Co de Phone Number [facility] [employer] [facility] CLIA# [id number] [address] [place] [address] * (ABNORMAL) MAGNESIUM LEVEL (08/30/2017 6:49 AM CDT) MAGNESIUM 1.5(L) 1.6 - 2.4 mg/dL 08/30/2017 11:52 AM CDT [facility] LABORATORY [facility] Blood Venipuncture / Unknown 08/30/2017 6:49 AM CDT 08/30/2017 9:24 AM CDT Geovani De Jesus MD CHEMISTRY ORDERABLES Final R esult Performing Organization Address City/[facility]/ZIP Co de Phone Number [facility] [employer] [facility]# [id number] [address] [place] [address] * (ABNORMAL) BASIC METABOLIC PANEL (08/30/2017 6:49 AM CDT) SODIUM 136 136 - 145 mmol/L 08/30/2017 12:01 PM [facility] [employer] [facility] POTASSIUM 2.7(LL) 3.5 - 5.0 mmol/L 08/30/2017 12:01 PM [facility] LABORATORY [facility] Comment:Results called to edgar jc by SANTI ALFORD at 12:01 PM on 08/30/2017 and read back verified. CHLORIDE 89(L) 98 - 107 mmol/L 08/30/2017 12:01 PM [facility] [employer] [facility] CO2 31(H) 22 - 29 mmol/L 08/30/2017 12:01 PM [facility] [employer] [facility] CALCIUM 9.2 8.6 - 10.2 mg/dL 08/30/2017 12:01 PM [facility] [employer] [facility] BUN 49(H) 8 - 23 mg/dL 08/30/2017 12:01 PM [facility] [employer] [facility] CREATININE 1.89(H) 0.51 - 0.95 mg/dL 08/30/2017 12:01 PM [facility] [employer] [facility] Comment: The GFR result is not clinically significant on patients <18 or >70 years of age. GLUCOSE 106(H) 74 - 99 mg/dL 08/30/2017 12:01 PM [facility] [employer] [facility] GFR 25 mL/min/1.7 3 sq meter 08/30/2017 12:01 PM [facility] Comment: eGFR has not been validated for [...] please refer to the GFR result. GFR, 31 mL/min/1.7 3 sq meter 08/30/2017 12:01 PM CDT [facility] LABORATORY SERVICES - [facility] ANION GAP 16 8 - 16 mmol/L 08/30/2017 12:01 PM CDT [facility] LABORATORY SERVICES - [facility] Blood Venipuncture / Unknown 08/30/2017 6:49 AM CDT 08/30/2017 9:24 AM CDT us Geovani De Jesus MD CHEMISTRY ORDERABLES Final R esult [facility] LABORATORY SERVICES [facility] CLIA# [id number] [address] [place] [address] documented in this encounter Visit Diagnoses Diagnosis Encounter for general adult medical examination without abnormal findings Routine general medical examination at a health care facility documented in this encounter Care Teams Sander Portable Machine Relationship Specialty Start Date End Date Gabriel Jurado MD [address] [facility] [address] [place] [address] PCP - General Family Practice 04/04/19 documented as of this encounter
--- OUTSIDE RECORDS SUMMARY | 2024-03-02 20:04 | XMS_ITS | Encounter Summary ---
Author Organization [employer] Address [address] [place] [address] Care Team Providers Care 3D Technologist Name Role Phone Gabriel Jurado MD Primary Care Provider [phone] Encounter Details Date Type Department Care Team (Late st Contact Info) Description 08/19/2017 Lab Requisition [facility] Laboratory Services [address] [facility] [address] [facility] [place] [address] Geovani De Jesus MD [address] [place] [address] Chronic kidney disease, stage III (moderate) (CMS/HCC); Hypokalemia; Heart failure (CMS/HCC); Diabetes mellitus due to underlying condition without complications (CMS/HCC) Social History Tobacco Use Types Packs/Day Years [...] Procedure Name Priority Date/Time Associated Diagnosis Comments PHOSPHORUS Routine 08/19/2017 6:19 AM CDT Heart failure Hypokalemia Chronic kidney disease, stage III (moderate) Diabetes mellitus due to underlying condition without complications MAGNESIUM LEVEL Routine 08/19/2017 6:19 AM CDT Heart failure Hypokalemia Chronic kidney disease, stage III (moderate) Diabetes mellitus due to underlying condition without complications COMPREHENSIVE METABOLIC PANEL Routine 08/19/2017 6:19 AM CDT Heart failure Hypokalemia Chronic kidney disease, stage III (moderate) Diabetes mellitus due to underlying condition without complications documented in this encounter Results * PHOSPHORUS (08/19/2017 6:19 AM CDT) Pathologist [facility] PHOSPHORUS 4.2 2.5 - 4.5 mg/dL 08/19/2017 11:06 AM CDT [place] [facility] Blood Venipuncture / Unknown 08/19/2017 6:19 AM CDT 08/19/2017 9:28 AM CDT Geovani De Jesus MD CHEMISTRY ORDERABLES Final R esult Performing Organization Address City/[facility]/ZIP Co de Phone Number [facility] CLIA# [id number] [address] [place] [address] * (ABNORMAL) MAGNESIUM LEVEL (08/19/2017 6:19 AM CDT) [facility] MAGNESIUM 1.4(L) 1.6 - 2.4 mg/dL 08/19/2017 11:06 AM CDT [place] [employer] [facility] Blood Venipuncture / Unknown 08/19/2017 6:19 AM CDT 08/19/2017 9:28 AM CDT Geovani De Jesus MD CHEMISTRY ORDERABLES Final R esult [facility]# [id number] [address] [place] [address] * (ABNORMAL) COMPREHENSIVE METABOLIC PANEL (08/19/2017 6:19 AM CDT) Pathologist [facility] SODIUM 140 136 - 145 mmol/L 08/19/2017 11:07 AM CDT [place] [employer] [facility] POTASSIUM 3.9 3.5 - 5.0 mmol/L 08/19/2017 11:07 AM CDT [place] [facility] CHLORIDE 95(L) 98 - 107 mmol/L 08/19/2017 11:07 AM [facility] [employer] LABORATORY SERVICES - [facility] CO2 27 22 - 29 mmol/L 08/19/2017 11:07 AM [employer] [facility] CALCIUM 9.0 8.6 - 10.2 mg/dL 08/19/2017 11:07 AM [facility] [employer] [facility] BUN 57(H) 8 - 23 mg/dL 08/19/2017 11:07 AM [employer] [facility] CREATININE 2.12(H) 0.51 - 0.95 mg/dL 08/19/2017 11:07 AM [employer] LABORATORY SERVICES - [facility] Comment: Significant change from prior result, correlate clinically and redraw if necessary. The GFR result is not clinically significant on patients <18 or >70 years of age. GLUCOSE 173(H) 74 - 99 mg/dL 08/19/2017 11:07 AM [employer] LABORATORY SERVICES - [facility] TOTAL PROTEIN 7.2 6.7 - 8.6 g/dL 08/19/2017 11:07 AM [employer] [facility] ALBUMIN 3.5 3.5 - 5.2 g/dL 08/19/2017 11:07 AM [employer] [facility] BILIRUBIN TOTAL 0.5 0.2 - 1.1 mg/dL 08/19/2017 11:07 AM [employer] [facility] ALKALINE PHOSPHATASE 92 35 - 104 U/L 08/19/2017 11:07 AM [employer] [facility] AST 13 <33 U/L 08/19/2017 11:07 AM [employer] [facility] ALT 9 <34 U/L 08/19/2017 11:07 AM [employer] [facility] GFR 22 mL/min/1.7 3 sq meter 08/19/2017 11:07 AM [employer] [facility] Comment: eGFR has not been validated [...] please refer to the GFR result. GFR, 27 mL/min/1.7 3 sq meter 08/19/2017 11:07 AM T [place] [facility] ANION GAP 18(H) 8 - 16 mmol/L 08/19/2017 11:07 AM T [place] [facility] Blood Venipuncture / Unknown 08/19/2017 6:19 AM CDT 08/19/2017 9:28 AM CDT Narrative [place] [facility] - 08/19/2017 11:07 AM CDT Samples containing indocyanine green cause interferences on Total and/or Direct Bilirubin and must not be measured. us Geovani De Jesus MD CHEMISTRY ORDERABLES Final R esult [place] [employer] 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
--- OUTSIDE RECORDS SUMMARY | 2024-03-02 20:04 | XMS_ITS | Encounter Summary ---
Author Organization [facility] Address [address] [place] [address] Care Team Providers Care Drupal Architect Name Role Phone Gabriel Jurado MD Primary Care Provider [phone] Encounter Details Date Type Department Care Team (Late st Contact Info) Description 08/20/2017 Lab Requisition [facility] [address] [address] [place] [address] Geovani De Jesus MD [address] [place] [address] Anemia Social History Tobacco Use Types Packs/Day Years Used Date Smoking Tobacco: Never Assessed Comments Unknown Sex and Gender Information Value Date Recorded Sex Assigned at Not on file Legal Sex Female 12:21 PM CDT Gender Identity Not on file Sexual Orientation Not on file documented as of this encounter Plan of Treatment Not on file documented as of this encounter Visit Diagnoses Diagnosis Anemia Anemia, unspecified documented in this encounter Care Teams Drupal Architect Relationship Specialty Start Date End Date Gabriel Jurado MD [address] [place] [address] PCP - General Family Practice 04/04/19 documented as of this encounter
--- OUTSIDE RECORDS SUMMARY | 2024-03-02 20:04 | XMS_ITS | Encounter Summary ---
Author Organization [facility] Address [address] [place] [address] Care Team Providers Care Comp Field Case Manager Name Role Phone Gabriel Jurado MD Primary Care Provider [phone] Encounter Details Date Type Department Care Team (Late st Contact Info) Description 08/24/2017 Lab Requisition [facility] Laboratory Services [address] [place] [address] Geovani De Jesus MD [address] [place] [address] Encounter for general adult medical examination without [...] as of this encounter Visit Diagnoses Diagnosis Encounter for general adult medical examination without abnormal findings Routine general medical examination at a health care facility documented in this encounter Care Teams Comp Field Case Manager Relationship Specialty Start Date End Date Gabriel Jurado MD [address] [place] [address] PCP - General Family Practice 04/04/19 documented as of this encounter
--- OUTSIDE RECORDS SUMMARY | 2024-03-02 20:04 | XMS_ITS | Encounter Summary ---
Author Organization [employer] Address [address] [place] [address] Care Team Providers Care Sql Data Architect Name Role Phone Gabriel Jurado MD Primary Care Provider [phone] Encounter Details Date Type Department Care Team (Late st Contact Info) Description 08/17/2017 Lab Requisition [facility] [address] [place] [address] Geovani De Jesus MD [address] [place] [address] Heart failure (CMS/HCC) Social History Tobacco Use Types Packs/Day [...] Procedure Name Priority Date/Time Associated Diagnosis Comments CBC WITH DIFFERENTIAL Routine 08/17/2017 6:22 AM CDT Heart failure BASIC METABOLIC PANEL Routine 08/17/2017 6:22 AM CDT Heart failure documented in this encounter Results * (ABNORMAL) BASIC METABOLIC PANEL (08/17/2017 6:22 AM CDT) SODIUM 143 136 - 145 mmol/L 08/17/2017 9:50 AM CDT [facility] POTASSIUM 3.0(L) 3.5 - 5.0 mmol/L 08/17/2017 9:50 AM T [facility] CHLORIDE 97(L) 98 - 107 mmol/L 08/17/2017 9:[address] [facility] - [facility] CO2 30(H) 22 - 29 mmol/L 08/17/2017 9:50 AM T [facility] CALCIUM 9.0 8.6 - 10.2 mg/dL 08/17/2017 9:[address] [facility] BUN 46(H) 8 - 23 mg/dL 08/17/2017 9:[address] [facility] CREATININE 1.65(H) 0.51 - 0.95 mg/dL 08/17/2017 9:[address] [facility] [employer] [facility] Comment: The GFR result is not clinically significant on patients <18 or >70 years of age. GLUCOSE 104(H) 74 - 99 mg/dL 08/17/2017 9:[address] [facility] [employer] [facility] GFR 30 mL/min/1.7 3 sq meter 08/17/2017 9:[address] [facility] [employer] [facility] Comment: eGFR has not been [...] please refer to the GFR result. GFR, 36 mL/min/1.7 3 sq meter 08/17/2017 9:50 AM T [facility] ANION GAP 16 8 - 16 mmol/L 08/17/2017 9:[address] [facility] [employer] [facility] Blood Venipuncture / Unknown 08/17/2017 6:22 AM CDT 08/17/2017 8:37 AM CDT Geovani De Jesus MD CHEMISTRY ORDERABLES Final R esult [facility] [id number] [address] [place] [address] * (ABNORMAL) CBC WITH DIFFERENTIAL (08/17/2017 6:22 AM CDT) WBC 8.7 4.0 - 9.8 K/uL 08/17/2017 10:28 AM CDT [facility] RBC 3.75(L) 3.90 - 4.90 M/uL 08/17/2017 10:28 AM CDT [facility] HEMOGLOBIN 7.9(L) 11.8 - 14.8 g/dL 08/17/2017 10:28 AM CDT [facility] HEMATOCRIT 26.5(L) 35.5 - 44.0 % 08/17/2017 10:28 AM CDT [facility] - [facility] MCV 70.7(L) 82.0 - 99.0 fL 08/17/2017 10:28 AM CDT [facility] MCH 21.1(L) 27.2 - 32.6 pg 08/17/2017 10:28 AM CDT [facility] - . [facility] MCHC 29.8(L) 31.5 - 35.5 g/dL 08/17/2017 10:28 AM CDT [facility] - . [facility] RDW 17.1(H) 11.5 - 14.5 % 08/17/2017 10:28 AM CDT [facility] RDW-STDEV 43.0 37.1 - 48.7 fL 08/17/2017 10:28 AM CDT [facility] PLATELETS 338 140 - 350 K/uL 08/17/2017 10:28 AM CDT [facility] MPV 9.6 9.3 - 12.4 fL 08/17/2017 10:28 AM CDT [facility] NEUTROPHILS 49 % 08/17/2017 10:28 AM CDT [facility] LYMPHOCYTES 30 % 08/17/2017 10:28 AM CDT [facility] MONOCYTES 14 % 08/17/2017 10:28 AM CDT [employer] [facility] EOSINOPHILS 6 % 08/17/2017 10:28 AM CDT [facility] BASOPHILS 1 % 08/17/2017 10:28 AM CDT [facility] IMMATURE GRANULOCYTES 1 % 08/17/2017 10:28 AM CDT [facility] Comment:IG (Immature Granulo cyte) count includes Metamyelocytes, Myelocytes, and Promyelocytes NEUTROPHIL ABSOLUTE 4.22 1.90 - 7.00 K/uL 08/17/2017 10:28 AM CDT [facility] LYMPHOCYTE ABSOLUTE 2.60 0.70 - 4.50 K/uL 08/17/2017 10:28 AM CDT [facility] MONOCYTE ABSOLUTE 1.23 0.10 - 1.30 K/uL 08/17/2017 10:28 AM CDT [facility] EOSINOPHIL ABSOLUTE 0.54 0.00 - 0.70 K/uL 08/17/2017 10:28 AM CDT [employer] [facility] - [facility] BASOPHILS ABSOLUTE 0.04 0.00 - 0.20 K/uL 08/17/2017 10:28 AM CDT [employer] [facility] IMMATURE GRANULOCYTES ABSOLUTE 0.04(H) 0.00 - 0.03 K/uL 08/17/2017 10:28 AM T [employer] [facility] Blood Venipuncture / Unknown 08/17/2017 6:22 AM CDT 08/17/2017 8:37 AM CDT Geovani De Jesus MD HEMATOLOGY ORDERABLES Final Result [id number] [address] [facility] [address] [address] documented in this encounter Visit Diagnoses Diagnosis Heart failure (CMS/HCC) Heart failure, unspecified documented in this encounter Care Teams Sql Data Architect Relationship Specialty Start Date End Date Gabriel Jurado MD [address] [facility] [address] [place] [address] PCP - General Family Practice 04/04/19 documented as of this encounter
--- OUTSIDE RECORDS SUMMARY | 2024-03-02 20:04 | XMS_ITS | Encounter Summary ---
Author Organization [employer] Address [address] [place] [address] Care Team Providers Care Ultrasound Technologist Name Role Phone Gabriel Jurado MD Primary Care Provider [phone] Encounter Details Date Type Department Care Team (Late st Contact Info) Description 08/18/2017 Lab Requisition [employer] [facility] [address] [place] [address] Geovani De Jesus MD [address] [place] [address] Encounter for general adult medical [...] Priority Date/Time Associated Diagnosis Comments PHOSPHORUS Routine 08/18/2017 6:19 AM CDT Encounter for general adult medical examination without abnormal findings MAGNESIUM LEVEL Routine 08/18/2017 6:19 AM CDT Encounter for general adult medical examination without abnormal findings documented in this encounter Results * PHOSPHORUS (08/18/2017 6:19 AM CDT) PHOSPHORUS 4.3 2.5 - 4.5 mg/dL 08/18/2017 10:[address] [facility] [employer] [facility] Blood Venipuncture / Unknown 08/18/2017 6:19 AM CDT 08/18/2017 9:06 AM CDT Geovani De Jesus MD CHEMISTRY ORDERABLES Final R esult [facility] [employer] [facility] CLIA# [id number] [address] [place] [address] * (ABNORMAL) MAGNESIUM LEVEL (08/18/2017 6:19 AM CDT) MAGNESIUM 1.4(L) 1.6 - 2.4 mg/dL 08/18/2017 10:36 AM CDT [facility] Blood Venipuncture / Unknown 08/18/2017 6:19 AM CDT 08/18/2017 9:06 AM CDT Geovani De Jesus MD CHEMISTRY ORDERABLES Final R esult Performing Organization Address City/[facility]/ZIP Co de Phone Number [facility] [employer] [facility] CLIA# [id number] [address] [place] [address] documented in this encounter Visit Diagnoses Diagnosis Encounter for general adult medical examination without abnormal findings Routine general medical examination at a health care facility documented in this encounter Care Teams Ultrasound Technologist Relationship Specialty Start Date End Date Gabriel Jurado MD [address] [facility] [address] [place] [address] PCP - General Family Practice 04/04/19 documented as of this encounter
[2024-03-02] MEDS: METOPROLOL SUCCINATE EXT REL 100 MG TABCR 200 MG PO (21:31)
[2024-03-02 21:46] LABS: Glucose Point of Care 188 mg/dl (65-105)
[2024-03-02] MEDS: CHOLESTYRAMINE LIGHT 4 GM POWD.PACK PO (22:35)
[2024-03-03] VITALS (12 sets, daily range): BP systolic 101–119; BP diastolic 56–65; PULSE 76–93; RESP 16–20; TEMP 36.1–36.3; O2SAT 100
[2024-03-03] MEDS: metroNIDAZOLE 500 MG/ISO 100ML 500 MG/100 ML BAG 100 MG IVPB (06:23)
[2024-03-03 06:35] LABS: Anion Gap 9 mmol/L (4-12); Blood Urea Nitrogen 57 mg/dL (7-17); Calcium 8.7 mg/dL (8.4-10.2); Carbon Dioxide 24 mmol/L (22-30); Chloride 102 mmol/L (98-107); Estimated CRCL calculation 20 ml/min; Estimated Glomerular Filt Rate 26; Glucose 153 mg/dL (65-110); Potassium 4.9 mmol/L (3.4-5.0); Sodium 135 mmol/L (137-145)
[2024-03-03 07:55] LABS: Glucose Point of Care 148 mg/dl (65-105)
[2024-03-03] MEDS: LORATADINE 10 MG TABLET PO (08:29)
[2024-03-03] MEDS: PANTOPRAZOLE 40 MG TABLET PO (08:30)
[2024-03-03] MEDS: OPTI-GEN TAB 1 TABLET PO ×2 (08:30→17:38)
[2024-03-03] MEDS: APIXABAN 2.5 MG TABLET PO ×2 (08:30→21:24)
[2024-03-03] MEDS: MUPIROCIN 2% OINT 22 GM TUBE 1 APPLIC TOPICAL (08:30)
[2024-03-03] MEDS: MAGNESIUM OXIDE 400 MG TABLET PO ×2 (08:30→17:36)
[2024-03-03] MEDS: TRIAMCINOLONE ACET 0.1% CREAM 15 GM TUBE 1 APPLIC TOPICAL (08:30)
[2024-03-03] MEDS: FUROSEMIDE 40 MG TABLET PO (08:30)
[2024-03-03] MEDS: POTASSIUM CHLORIDE 20 MEQ PACKET (FOR LIQUID) 40 MEQ PO ×2 (08:34→17:38)
[2024-03-03] MEDS: ACETAMINOPHEN 325 MG TABLET 650 MG PO ×2 (08:36→21:38)
--- NOTE | 2024-03-03 09:01 | WPDUROPN2 ---
Progress Note: A&P Assessment and Plan (1) Urinary tract infection: Qualifiers: Hematuria presence: without hematuria Urinary tract infection type: site unspecified Qualified Code(s): N39.0 - Urinary tract infection, site not specified Code(s): N39.0 - Urinary tract infection, site not specified Status: Acute Assessment and Plan: Present on admission UA suspicious for UTI -- likely 2/2 acute diarrheal illness with recent bowel/bladder incontinence Urine culture pending on IV ceftriaxone (2) Urinary retention with incomplete bladder emptying: Code(s): R33.9 - Retention of urine, unspecified Status: Acute Assessment and Plan: Acute urinary retention likly 2/2 acute illness, weakness, deconditioning, advanced age Admitted with diverticulitis, UTI (3) Chronic kidney disease, stage IV (severe): Code(s): N18.4 - Chronic kidney disease, stage 4 (severe) Status: Chronic Assessment and Plan: Chronic, stable CKD III-IV at baseline Plan - Agree with culture-directed antibiotics for suspected UTI. - Trend Cr, avoid nephrotoxins as able - Maintain indwelling Wilkerson catheter as she recovers from diverticulitis. Please keep off tension. She requires daily and PRN genital hygiene. - OK for void trial prior to discharge when she's more ambulatory. - No plan for inpatient urologic surgical intervention. - Patient can follow-up outpatient for advanced bladder function workup to include Urodynamics if aligns with patient's goals of care. DNR code status noted. Family at bedside, updates given. Subjective Subjective Date/Time Seen: 03/03/24 09:01 Interval history: NAEO; Patient comfortable on exam. She continues to recover from diverticulitis. Still with diarrhea. Intermittent bladder spams. Indwelling Wilkerson draining grisel urine. Blood and urine cultures pending on IV ceftriaxone. Exam Const: General: comfortable and no acute distress Resp: Effort & Inspection: normal respiratory effort Urinary Catheter: Urinary Catheter: patent and draining and urine dark Neuro: Speech: normal speech Psych: Mental Status: mental status grossly normal Objective Data Vital Signs Vital Signs: Vital Signs - 24 hr 03/02/24 10:14 03/02/24 11:16 03/02/24 12:01 Temperature Pulse Rate 82 Respiratory Rate Blood Pressure Pulse Oximetry 100 93 Oxygen Delivery Nasal Cannula Room Air Oxygen Flow Rate 3 03/02/24 13:34 03/02/24 16:03 03/02/24 19:43 Temperature 97.3 F L 97.4 F L Pulse Rate 84 88 89 Respiratory Rate 16 20 Blood Pressure 130/57 L 106/67 Pulse Oximetry 100 100 Oxygen Delivery Oxygen Flow Rate 03/02/24 20:00 03/02/24 20:00 03/02/24 21:31 Temperature Pulse Rate 88 89 Respiratory Rate Blood Pressure Pulse Oximetry 100 Oxygen Delivery Nasal Cannula Oxygen Flow Rate 2 03/03/24 00:00 03/03/24 04:00 03/03/24 06:00 Temperature 97 F L Pulse Rate 85 90 76 Respiratory Rate 18 Blood Pressure 105/65 Pulse Oximetry 100 Oxygen Delivery Oxygen Flow Rate 03/03/24 08:26 03/03/24 08:34 03/03/24 08:34 Temperature 97.1 F L Pulse Rate 78 77 Respiratory Rate 16 Blood Pressure 101/64 Pulse Oximetry 100 100 Oxygen Delivery Nasal Cannula Oxygen Flow Rate 2 Intake/Output Intake/Output: Intake & Output 02/29/24 03/01/24 03/02/24 03/03/24 23:59 23:59 23:59 23:59 Intake Total 1350 2670 1670 350 Output Total 300 1700 1225 500 Balance 1050 970 445 -150 Meds/Results Medications: Active Medications Generic Name Dose Route Start Last Admin Trade Name Freq PRN Reason Stop Dose Admin Acetaminophen 650 mg 02/29/24 22:09 03/03/24 08:36 Acetaminophen 325 Mg Tablet PO 650 mg Q6H PRN Administration pain 1-3 or fever Apixaban 2.5 mg 02/29/24 22:30 03/03/24 08:30 Apixaban 2.5 Mg Tablet PO 2.5 mg Q12HR LIO Administration Cholestyramine Resin 4 gm 03/01/24 21:00 03/02/24 22:35 Cholestyramine Light 4 Gm Powd.Pack PO 4 gm HS LIO Administration Dextrose 12.5 gm 03/01/24 09:47 Dextrose 50% 25 Gm/50 Ml Syringe IV PUSH PRN PRN Hypoglycemia Protocol Furosemide 40 mg 03/01/24 09:25 03/03/24 08:30 Furosemide 40 Mg Tablet PO 40 mg DAILY LIO Administration Glucagon 1 mg 03/01/24 09:47 Glucagon For Inj 1 Mg Vial IM PRN PRN Hypoglycemia Protocol Glucose 15 gm 03/01/24 09:47 Glucose Oral Gel 15 Gm Of Glucse In 37.5 Gm Tube PO PRN PRN Hypoglycemia Protocol Metronidazole 500 mg in 100 mls @ 100 mls/hr 02/29/24 22:00 03/03/24 06:23 Flagyl 500 Mg/Iso Soln 100 Ml IVPB 100 mls/hr Q8H LIO Administration Ceftriaxone Sodium 1 gm in 50 mls @ 100 mls/hr 02/29/24 21:00 03/02/24 22:00 Rocephin 1 Gm/Ns 50 Ml IVPB Infused Q24H LIO Infusion Dextrose 1,000 mls @ 100 mls/hr 03/01/24 09:47 Dextrose 5% 1,000 Ml IVPB PRN PRN Hypoglycemia Protocol Insulin Aspart 2 - 5 units 03/01/24 12:00 03/03/24 08:39 Insulin Aspart (*Bkc) 100 Units/Ml SUB-Q Not Given TIDWM LIO Protocol Insulin Aspart 1 - 2 units 03/01/24 21:00 03/02/24 21:08 Insulin Aspart (*Bkc) 100 Units/Ml SUB-Q Not Given HS LIO Protocol Loratadine 10 mg 03/01/24 09:00 03/03/24 08:29 Loratadine 10 Mg Tablet PO 10 mg DAILY LIO Administration Magnesium Oxide 400 mg 03/01/24 09:00 03/03/24 08:30 Magnesium Oxide 400 Mg Tablet PO 400 mg BID LIO Administration Metolazone 2.5 mg 03/02/24 08:30 03/02/24 17:05 Metolazone 2.5 Mg Tablet PO 2.5 mg Linn@0830,1630 LIO Administration Metoprolol Succinate 200 mg 03/01/24 21:00 03/02/24 21:31 Metoprolol Succinate Ext Rel 100 Mg Tabcr PO 200 mg HS LIO Administration Multivitamins/Minerals 1 tablet 03/01/24 09:00 03/03/24 08:30 Opti-Gen Tab PO 1 tablet BID LIO Administration Mupirocin 1 applic 03/01/24 09:00 03/03/24 08:30 Mupirocin 2% Oint 22 Gm Tube TOPICAL 1 applic DAILY LIO Administration Ondansetron HCl 4 mg 02/29/24 18:42 Ondansetron Inj 4 Mg/2 Ml Vial IV PUSH Q4H PRN Nausea Pantoprazole Sodium 40 mg 03/01/24 09:00 03/03/24 08:30 Pantoprazole 40 Mg Tablet PO 40 mg QAM LIO Administration Potassium Chloride 40 meq 03/01/24 09:00 03/03/24 08:34 Potassium Chloride 20 Meq Packet (For Liquid) PO 40 meq MoWeFr@0900,1700 LIO Administration Potassium Chloride 40 meq 03/02/24 09:00 03/02/24 17:05 Potassium Chloride 20 Meq Packet (For Liquid) PO 40 meq SuTuThSa@0900,1300,1700 LIO Administration Triamcinolone Acetonide 1 applic 03/01/24 09:00 03/03/24 08:30 Triamcinolone Acet 0.1% Cream 15 Gm Tube TOPICAL 1 applic DAILY LIO Administration Radiology Results: ITS Impressions Chest X-Ray 02/29/24 17:04 IMPRESSION: Mild pulmonary vascular congestion, with a left-sided pleural effusion. No focal infiltrate. Abdomen/Pelvis CT 02/29/24 17:35 IMPRESSION: Findings within the rectosigmoid colon which may represent early/acute diverticulitis. Otherwise, no acute intra-abdominal pathology. Innumerable nonacute findings, as detailed above. Labs Labs: Laboratory Results - last 24 hr 03/02/24 03/02/24 03/02/24 08:41 12:04 16:52 Sodium 134 L Potassium 3.8 Chloride 101 Carbon Dioxide 22 Anion Gap 11 BUN 51 H Creatinine 1.73 H Estim Creat Clear Calc 21 Estimated GFR 28 L Glucose 129 H POC Capillary Glucose 169 H 158 H Calcium 8.4 03/02/24 03/03/24 03/03/24 19:56 05:08 07:36 Sodium 135 L Potassium 4.9 Chloride 102 Carbon Dioxide 24 Anion Gap 9 BUN 57 H Creatinine 1.84 H Estim Creat Clear Calc 20 Estimated GFR 26 L Glucose 153 H POC Capillary Glucose 188 H 148 H Calcium 8.7
--- NOTE | 2024-03-03 10:36 | PCPTNOTE ---
attempted PT eval 2x in AM, pt working with OT the first attempt at 0900 and in bed getting cleaned up by nursing staff on second attempt at 1030, will attempt again later today
[2024-03-03 11:59] LABS: Glucose Point of Care 141 mg/dl (65-105)
[2024-03-03] MEDS: metroNIDAZOLE 500 MG TABLET PO (13:29)
--- NOTE | 2024-03-03 13:47 | PCPTNOTE ---
attempted PT eval, pt states she already got up today and does not want to get up again, states she is concerned about diarrhea every time she gets up and does not want to deal with that at this time, I informed the pt the importance of mobility and seeing therapy for her safety when she leaves the hospital, pt agreed to do therapy tomorrow, daughter in room encouraged pt to get up, will follow
[2024-03-03 15:11] LABS: Toxigenic C. Diff NEGATIVE (NEGATIVE)
--- NOTE | 2024-03-03 15:18 | P.PNIM_ITS ---
Progress Note: A&P Assessment and Plan (1) Diverticulitis: Code(s): K57.92 - Diverticulitis of intestine, part unspecified, without perforation or abscess without bleeding Status: Acute Assessment and Plan: - CT abd/pelvis; Early acute diverticulitis of the rectosigmoid and large distended bladder. - Still with episodes of diarrhea, including last evening and multiple episodes yesterday evening and night per daughter. -Patient frustrated of diarrhea episodes causing irritation to perirectal and perineal regions. -Still tolerating diet well and we'll continue diabetic diet. - No WBC's or fevers for now. - Stool studies ordered. - Preliminary blood cultures NGTD. (2) Urinary tract infection: Qualifiers: Hematuria presence: without hematuria Urinary tract infection type: site unspecified Qualified Code(s): N39.0 - Urinary tract infection, site not specified Code(s): N39.0 - Urinary tract infection, site not specified Status: Acute Assessment and Plan: - UA suspicious for possible UTI. - Urine culture growing E.Coli and Klebs. Pneumoniae; Pansensitive. - Covered by current abx ( Ceftriaxone). - After discussion with [facility] pharmacy, will consider oral antibiotics - Continue to follow Bcx's. (3) Acute on chronic renal failure: Qualifiers: Acute renal failure type: unspecified Chronic kidney disease stage: stage 4 (GFR 15-29) Qualified Code(s): N17.9 - Acute kidney failure, unspecified; N18.4 - Chronic kidney disease, stage 4 (severe) Code(s): N17.9 - Acute kidney failure, unspecified; N18.9 - Chronic kidney disease, unspecified Status: Acute Assessment and Plan: - Possibly multifactorial secondary to dehydration from poor PO intake /+vs diuretics use +/vs infection. - Given fluid bolus in ER and albumin. - Lasix dose reduced to 40 mg daily from BID with BP trending normal lows. - Renal function appears to be stabilizing>>1.73>>1.84 - Continue to avoid nephrotoxics. - Meds dosing per renal function. (4) Urinary retention with incomplete bladder emptying: Code(s): R33.9 - Retention of urine, unspecified Status: Acute Assessment and Plan: - Possibly related to acute cystitis vs chronic retention vs infection vs other. - Wilkerson catheter placed on admission and we'll maintain for now. - Patient states she doesn't want to go home with the Wilkerson Catheter. - Consider voiding trials before discharge when pt activity improves. -maintain for now with patient being nonambulatory. (5) Hypotension: Code(s): I95.9 - Hypotension, unspecified Status: Acute Assessment and Plan: - Possibly multifactorial; High doses or BP meds vs/+ infection vs /+ diuresis vs/+ poor PO intake. - Given fluid bolus in ER and 4 doses albumin. - BP levels stable normal lows. - Continue to monitor closely and adjust meds as needed. (6) Hypomagnesemia: Code(s): E83.42 - Hypomagnesemia Status: Acute Assessment and Plan: - Replaced and currently wnl. (7) Heart failure with reduced ejection fraction: Code(s): I50.20 - Unspecified systolic (congestive) heart failure Status: Acute Assessment and Plan: - Appears compensated. - ECHO 11/29 showed EF 30-35 %. - Continue diuresis with Lasix and Metolazone. - Continue to monitor closely for decompensation. - Monitor BP closely. (8) Chronic atrial fibrillation: Code(s): I48.20 - Chronic atrial fibrillation, unspecified Status: Acute Assessment and Plan: - Rate well controlled. - Continue Metoprolol and apixaban. (9) Insulin dependent type 2 diabetes mellitus: Code(s): E11.9 - Type 2 diabetes mellitus without complications; Z79.4 - termination clerk (current) use of insulin Status: Acute Assessment and Plan: - Blood-glucose levels currently well controlled. - Continue low-dose SSI for now. Time Spent With Patient Time with patient: 25 - 35 minutes Subjective Date/time seen: 03/03/24 09:18 Patient working with OT and unable to walk so assisted to recliner and is very weak with labored breathing. Family bedside and state patient very confused yesterday evening and was hallucinating and crying when family was trying to leave. Pt family (daughter) enquiring about long-term goals of treatment and advised to discuss with other family members as patient's family believe she has been declining in the last 3 months. Interval history: Patient currently on recliner but tolerating fairly and states she is very exhausted and wants to go to bed. Review of Systems Review of Systems: All systems reviewed & are unremarkable except as noted in HPI and below Exam Narrative: General: Very lethargic on recliner. HEENT: Atraumatic, PERRL, EOMI, Moist mucosa. NECK: Supple. Lungs: General crackles posteriorly. Heart: RRR, no murmurs. Abdomen: Soft, non-tender, non-distended, +ve BS X4 Quadrants. Extremities: 3+ edema mala. Feet, 2+ edema mala. legs. Skin: Stage II-III sacral decubitus with macerated borders, no drainage noted. Wound to thoracic-spine with dressing. Neuro: Fairly well oriented. No focal neuro deficits noted. Psych: Exhausted and frustrated. Objective Data Vital Signs Vital Signs: Vital Signs - 24 hr 03/02/24 16:03 03/02/24 19:43 03/02/24 20:00 Temperature 97.4 F L Pulse Rate 88 89 Respiratory Rate 20 Blood Pressure 106/67 Pulse Oximetry 100 100 Oxygen Delivery Nasal Cannula Oxygen Flow Rate 2 03/02/24 20:00 03/02/24 21:31 03/03/24 00:00 Temperature Pulse Rate 88 89 85 Respiratory Rate Blood Pressure Pulse Oximetry Oxygen Delivery Oxygen Flow Rate 03/03/24 04:00 03/03/24 06:00 03/03/24 08:26 Temperature 97 F L 97.1 F L Pulse Rate 90 76 78 Respiratory Rate 18 16 Blood Pressure 105/65 101/64 Pulse Oximetry 100 100 Oxygen Delivery Oxygen Flow Rate 03/03/24 08:34 03/03/24 08:34 03/03/24 09:05 Temperature Pulse Rate 77 Respiratory Rate Blood Pressure Pulse Oximetry 100 Oxygen Delivery Nasal Cannula Nasal Cannula Oxygen Flow Rate 2 2 03/03/24 12:00 Temperature Pulse Rate 79 Respiratory Rate Blood Pressure Pulse Oximetry Oxygen Delivery Oxygen Flow Rate Intake/Output Intake/Output: Intake & Output 02/29/24 03/01/24 03/02/24 03/03/24 23:59 23:59 23:59 23:59 Intake Total 1350 2670 1670 590 Output Total 300 1700 1225 500 Balance 1050 970 445 90 Meds/Results Medications: Active Medications Generic Name Dose Route Start Last Admin Trade Name Freq PRN Reason Stop Dose Admin Acetaminophen 650 mg 02/29/24 22:09 03/03/24 08:36 Acetaminophen 325 Mg Tablet PO 650 mg Q6H PRN Administration pain 1-3 or fever Apixaban 2.5 mg 02/29/24 22:30 03/03/24 08:30 Apixaban 2.5 Mg Tablet PO 2.5 mg Q12HR LIO Administration Cholestyramine Resin 4 gm 03/01/24 21:00 03/02/24 22:35 Cholestyramine Light 4 Gm Powd.Pack PO 4 gm HS LIO Administration Dextrose 12.5 gm 03/01/24 09:47 Dextrose 50% 25 Gm/50 Ml Syringe IV PUSH PRN PRN Hypoglycemia Protocol Furosemide 40 mg 03/01/24 09:25 03/03/24 08:30 Furosemide 40 Mg Tablet PO 40 mg DAILY LIO Administration Glucagon 1 mg 03/01/24 09:47 Glucagon For Inj 1 Mg Vial IM PRN PRN Hypoglycemia Protocol Glucose 15 gm 03/01/24 09:47 Glucose Oral Gel 15 Gm Of Glucse In 37.5 Gm Tube PO PRN PRN Hypoglycemia Protocol Ceftriaxone Sodium 1 gm in 50 mls @ 100 mls/hr 02/29/24 21:00 03/02/24 22:00 Rocephin 1 Gm/Ns 50 Ml IVPB 03/06/24 21:29 Infused Q24H LIO Infusion Dextrose 1,000 mls @ 100 mls/hr 03/01/24 09:47 Dextrose 5% 1,000 Ml IVPB PRN PRN Hypoglycemia Protocol Insulin Aspart 2 - 5 units 03/01/24 12:00 03/03/24 12:13 Insulin Aspart (*Bkc) 100 Units/Ml SUB-Q Not Given TIDWM LIO Protocol Insulin Aspart 1 - 2 units 03/01/24 21:00 03/02/24 21:08 Insulin Aspart (*Bkc) 100 Units/Ml SUB-Q Not Given HS LIO Protocol Loratadine 10 mg 03/01/24 09:00 03/03/24 08:29 Loratadine 10 Mg Tablet PO 10 mg DAILY LIO Administration Magnesium Oxide 400 mg 03/01/24 09:00 03/03/24 08:30 Magnesium Oxide 400 Mg Tablet PO 400 mg BID LIO Administration Metolazone 2.5 mg 03/02/24 08:30 03/02/24 17:05 Metolazone 2.5 Mg Tablet PO 2.5 [facility] LIO Administration Metoprolol Succinate 200 mg 03/01/24 21:00 03/02/24 21:31 Metoprolol Succinate Ext Rel 100 Mg Tabcr PO 200 mg HS LIO Administration Metronidazole 500 mg 03/03/24 14:00 03/03/24 13:29 Metronidazole 500 Mg Tablet PO 03/07/24 14:01 500 mg Q8HR LIO Administration Multivitamins/Minerals 1 tablet 03/01/24 09:00 03/03/24 08:30 Opti-Gen Tab PO 1 tablet BID LIO Administration Mupirocin 1 applic 03/01/24 09:00 03/03/24 08:30 Mupirocin 2% Oint 22 Gm Tube TOPICAL 1 applic DAILY LIO Administration Ondansetron HCl 4 mg 02/29/24 18:42 Ondansetron Inj 4 Mg/2 Ml Vial IV PUSH Q4H PRN Nausea Pantoprazole Sodium 40 mg 03/01/24 09:00 03/03/24 08:30 Pantoprazole 40 Mg Tablet PO 40 mg QAM LIO Administration Potassium Chloride 40 meq 03/01/24 09:00 03/03/24 08:34 Potassium Chloride 20 Meq Packet (For Liquid) PO 40 meq MoWeFr@0900,1700 LIO Administration Potassium Chloride 40 meq 03/02/24 09:00 03/02/24 17:05 Potassium Chloride 20 Meq Packet (For Liquid) PO 40 meq SuTuThSa@0900,1300,1700 LIO Administration Triamcinolone Acetonide 1 applic 03/01/24 09:00 03/03/24 08:30 Triamcinolone Acet 0.1% Cream 15 Gm Tube TOPICAL 1 applic DAILY LIO Administration Radiology Results: ITS Impressions Chest X-Ray 02/29/24 17:04 IMPRESSION: Mild pulmonary vascular congestion, with a left-sided pleural effusion. No focal infiltrate. Abdomen/Pelvis CT 02/29/24 17:35 IMPRESSION: Findings within the rectosigmoid colon which may represent early/acute diverticulitis. Otherwise, no acute intra-abdominal pathology. Innumerable nonacute findings, as detailed above. Labs Labs: Laboratory Results - last 24 hr 03/02/24 03/02/24 03/03/24 16:52 19:56 05:08 Sodium 135 L Potassium 4.9 Chloride 102 Carbon Dioxide 24 Anion Gap 9 BUN 57 H Creatinine 1.84 H Estim Creat Clear Calc 20 Estimated GFR 26 L Glucose 153 H POC Capillary Glucose 158 H 188 H Calcium 8.7 C. difficile (PCR) 03/03/24 03/03/24 03/03/24 07:36 11:54 13:40 Sodium Potassium Chloride Carbon Dioxide Anion Gap BUN Creatinine Estim Creat Clear Calc Estimated GFR Glucose POC Capillary Glucose 148 H 141 H Calcium C. difficile (PCR) Negative Quality VTE Prophylaxis VTE prophylaxis: pharmacologic ordered Hospitalist MIPS Advance Care Plan I have confirmed that the patient's Advanced Care Plan is present, code status is documented, or surrogate decision maker is listed in patient medical record.: Yes Medication Reconciliation I have utilized all available resources to obtain, update and review the patients current medications (includes all prescriptions, OTC, herbals, cannabis, and nutritional supplements).: Yes
[2024-03-03 17:07] LABS: Glucose Point of Care 191 mg/dl (65-105)
[2024-03-03 21:03] LABS: Glucose Point of Care 231 mg/dl (65-105)
[2024-03-03] MEDS: METOPROLOL SUCCINATE EXT REL 100 MG TABCR 200 MG PO (21:23)
[2024-03-03] MEDS: CEPHALEXIN 250 MG CAPSULE PO (21:24)
[2024-03-03] MEDS: INSULIN ASPART (*BKC) 100 UNITS/ML SUB-Q (21:25)
[2024-03-03] MEDS: CHOLESTYRAMINE LIGHT 4 GM POWD.PACK PO (22:35)
[2024-03-04] VITALS (11 sets, daily range): BP systolic 103–131; BP diastolic 61–80; PULSE 80–103; RESP 12–20; TEMP 36.3–36.6; O2SAT 99–100
[2024-03-04] MEDS: ACETAMINOPHEN 325 MG TABLET 650 MG PO (04:46)
[2024-03-04 07:25] LABS: Basophils Percent Auto 0.4 % (0.2-1.2); Eosinophils Absolute Auto 0.7 K/mm3 (0-0.3); Eosinophils Percent Auto 9.6 % (0-4.4); Hematocrit 33.5 % (37.0-47.0); Hemoglobin 10.4 g/dL (12.0-15.0); Immature Granulocyte Absolute 0.02 K/mm3 (0.00-0.031); Immature Granulocyte Percent A 0.3 % (0-0.5); Immature Platelet Fraction Pct 5.9 % (0.9-11.2); Lymphocytes Absolute Auto 1.58 K/mm3 (0.9-3.2); Lymphocytes Percent Auto 21.7 % (18.3-44.2); Mean Corpuscular Hemoglobin 26.3 pg (26-34); Mean Corpuscular Volume 84.6 fl (80-100); Monocytes Absolute Auto 0.8 K/mm3 (0.1-0.6); Monocytes Percent Auto 11.3 % (2.6-8.5); Neutrophils Absolute Auto 4.1 K/mm3 (1.3-6.7); Neutrophils Percent Auto 56.7 % (45.5-73.1); Platelet Count Result 144 k/mm3 (150-375); Red Blood Count 3.96 M/mm3 (4.2-5.4); Red Cell Distribution Width 17.7 % (11.5-14.5); White Blood Count 7.3 K/mm3 (4.5-10.0)
[2024-03-04 07:38] LABS: Anion Gap 11 mmol/L (4-12); Blood Urea Nitrogen 61 mg/dL (7-17); Calcium 8.7 mg/dL (8.4-10.2); Carbon Dioxide 20 mmol/L (22-30); Chloride 105 mmol/L (98-107); Estimated CRCL calculation 21 ml/min; Estimated Glomerular Filt Rate 27; Glucose 183 mg/dL (65-110); Potassium 5.2 mmol/L (3.4-5.0); Sodium 136 mmol/L (137-145)
[2024-03-04 07:56] LABS: Glucose Point of Care 160 mg/dl (65-105)
[2024-03-04] MEDS: OPTI-GEN TAB 1 TABLET PO ×2 (08:33→17:24)
[2024-03-04] MEDS: CEPHALEXIN 250 MG CAPSULE PO ×2 (08:33→20:35)
[2024-03-04] MEDS: LORATADINE 10 MG TABLET PO (08:33)
[2024-03-04] MEDS: MAGNESIUM OXIDE 400 MG TABLET PO ×2 (08:33→17:23)
[2024-03-04] MEDS: PANTOPRAZOLE 40 MG TABLET PO (08:33)
[2024-03-04] MEDS: FUROSEMIDE 40 MG TABLET PO (08:33)
[2024-03-04] MEDS: APIXABAN 2.5 MG TABLET PO ×2 (08:33→20:35)
[2024-03-04] MEDS: MUPIROCIN 2% OINT 22 GM TUBE 1 APPLIC TOPICAL (08:34)
[2024-03-04] MEDS: TRIAMCINOLONE ACET 0.1% CREAM 15 GM TUBE 1 APPLIC TOPICAL (08:34)
--- NOTE | 2024-03-04 10:30 | PCPTNOTE ---
Attempted PT evaluation 1000- pt refused; discussed pt with ANGEL Maya pt family is considering Hospice.
[2024-03-04 12:51] LABS: Glucose Point of Care 183 mg/dl (65-105)
[2024-03-04] MEDS: metOLazone 2.5 MG TABLET PO ×2 (12:51→17:23)
--- NOTE | 2024-03-04 15:07 | P.PNIM_ITS ---
Progress Note: A&P Assessment and Plan (1) Diverticulitis: Code(s): K57.92 - Diverticulitis of intestine, part unspecified, without perforation or abscess without bleeding Status: Acute Assessment and Plan: - CT abd/pelvis; Early acute diverticulitis of the rectosigmoid and large distended bladder. - Still with episodes of diarrhea, including last evening and multiple episodes yesterday evening and night per daughter. -Patient frustrated of diarrhea episodes causing irritation to perirectal and perineal regions. -Still tolerating diet well and we'll continue diabetic diet. - No WBC's or fevers for now. - C-diff test neg, other stool studies pending. - Blood cultures NGTD. (2) Urinary tract infection: Qualifiers: Hematuria presence: without hematuria Urinary tract infection type: site unspecified Qualified Code(s): N39.0 - Urinary tract infection, site not specified Code(s): N39.0 - Urinary tract infection, site not specified Status: Acute Assessment and Plan: - UA suspicious for possible UTI. - Urine culture growing E.Coli and Klebs. Pneumoniae; Pansensitive. - Covered by current abx; initially on Ceftriaxone, now on PO keflex, 6 doses needed. (3) Acute on chronic renal failure: Qualifiers: Acute renal failure type: unspecified Chronic kidney disease stage: stage 4 (GFR 15-29) Qualified Code(s): N17.9 - Acute kidney failure, unspecified; N18.4 - Chronic kidney disease, stage 4 (severe) Code(s): N17.9 - Acute kidney failure, unspecified; N18.9 - Chronic kidney disease, unspecified Status: Acute Assessment and Plan: - Possibly multifactorial secondary to dehydration from poor PO intake /+vs diuretics use +/vs infection. - Given fluid bolus in ER and albumin. - Lasix dose reduced to 40 mg daily from BID with BP trending normal lows. - Renal function appears to be stabilizing>>1.73>>1.84>>1.77 - Continue to avoid nephrotoxics. - Meds dosing per renal function. (4) Urinary retention with incomplete bladder emptying: Code(s): R33.9 - Retention of urine, unspecified Status: Acute Assessment and Plan: - Possibly related to acute cystitis vs chronic retention vs infection vs other. - Mena catheter placed on admission and we'll maintain for now. - Patient states she doesn't want to go home with the Mena Catheter. - Consider voiding trials before discharge when pt activity improves. -maintain for now with patient being nonambulatory and considering hospice. (5) Hypotension: Code(s): I95.9 - Hypotension, unspecified Status: Acute Assessment and Plan: - Possibly multifactorial; High doses or BP meds vs/+ infection vs /+ diuresis vs/+ poor PO intake. - Given fluid bolus in ER and 4 doses albumin. - BP levels stable normal lows. - Continue to monitor closely and adjust meds as needed. (6) Hypomagnesemia: Code(s): E83.42 - Hypomagnesemia Status: Acute Assessment and Plan: - Replace as needed. - Follow levels. (7) Heart failure with reduced ejection fraction: Code(s): I50.20 - Unspecified systolic (congestive) heart failure Status: Acute Assessment and Plan: - Appears compensated. - ECHO 11/29 showed EF 30-35 %. - Continue diuresis with Lasix and Metolazone. - Continue to monitor closely for decompensation. - Monitor BP closely. (8) Chronic atrial fibrillation: Code(s): I48.20 - Chronic atrial fibrillation, unspecified Status: Acute Assessment and Plan: - Rate well controlled. - Continue Metoprolol and apixaban. (9) Insulin dependent type 2 diabetes mellitus: Code(s): E11.9 - Type 2 diabetes mellitus without complications; Z79.4 - penitentiary (current) use of insulin Status: Acute Assessment and Plan: - Blood-glucose levels currently well controlled. - Continue low-dose SSI for now. Plan Held a long discussion with patient and family. Patient initially living at an assisted living under not want to be placed at a nursing facility. Patient has very poor prognosis with multiple comorbidities and advanced age. By family patient also appears to be declining within the last 3 months. Family has decided on hospice and hospice has been consulted by family's request. Family request that on Medical treatment continues as they await patient to be transferred to a [facility] facility for hospice. Will provide supportive care and continue with medical treatment per family wishes. Will maintain pat ient on bedrest with her increased deconditioning and maintain mena as well. Time Spent With Patient Time with patient: 25 - 35 minutes Subjective Date/time seen: 03/04/24 10:07 Patient with daughter bedside and states she is exhausted and just wants to , does not want any further treatment. Patient daughter states she is awaiting other family members to discuss patient's wishes and goals of care. Interval history: Patient very weak and lethargic on bedrest, very hard of hearing and appears confused. Review of Systems Review of Systems: All systems reviewed & are unremarkable except as noted in HPI and below Exam Narrative: General: Very lethargic and confused on bedrest. HEENT: Atraumatic, PERRL, EOMI, Moist mucosa. NECK: Supple. Lungs: General crackles posteriorly, labored breathing with minimal activity and anxiety. Heart: RRR, no murmurs. Abdomen: Soft, non-tender, non-distended, +ve BS X4 Quadrants. Extremities: 3+ edema mala. Feet, 2+ edema mala. legs. Skin: Stage II-III sacral decubitus with macerated borders, no drainage noted. Wound to thoracic-spine with dressing. Neuro: Very confused on bedrest. No focal neuro deficits noted. Psych: Restless, exhausted and frustrated. Objective Data Vital Signs Vital Signs: Vital Signs - 24 hr 03/03/24 16:00 03/03/24 20:00 03/03/24 21:12 Temperature Pulse Rate 84 93 Respiratory Rate Blood Pressure Pulse Oximetry 100 Oxygen Delivery Nasal Cannula Oxygen Flow Rate 2 Fraction of Inspired Oxygen 03/03/24 21:17 03/03/24 21:23 03/04/24 01:11 Temperature 97.3 F L Pulse Rate 81 81 87 Respiratory Rate 20 Blood Pressure 119/65 Pulse Oximetry 100 Oxygen Delivery Oxygen Flow Rate Fraction of Inspired Oxygen 03/04/24 04:00 03/04/24 05:36 03/04/24 08:00 Temperature 98 F Pulse Rate 103 H 95 95 Respiratory Rate 20 20 Blood Pressure 131/80 Pulse Oximetry 100 99 Oxygen Delivery Nasal Cannula Oxygen Flow Rate 2 Fraction of Inspired Oxygen 03/04/24 08:00 03/04/24 08:15 Temperature Pulse Rate 80 Respiratory Rate Blood Pressure Pulse Oximetry 99 Oxygen Delivery Nasal Cannula Oxygen Flow Rate 2 Fraction of Inspired Oxygen 28 Intake/Output Intake/Output: Intake & Output 03/01/24 03/02/24 03/03/24 03/04/24 23:59 23:59 23:59 23:59 Intake Total 2670 1670 950 250 Output Total 1700 1225 925 400 Balance 970 445 25 -150 Meds/Results Medications: Active Medications Generic Name Dose Route Start Last Admin Trade Name Freq PRN Reason Stop Dose Admin Acetaminophen 650 mg 02/29/24 22:09 03/04/24 04:46 Acetaminophen 325 Mg Tablet PO 650 mg Q6H PRN Administration pain 1-3 or fever Apixaban 2.5 mg 02/29/24 22:30 03/04/24 08:33 Apixaban 2.5 Mg Tablet PO 2.5 mg Q12HR LIO Administration Cephalexin HCl 250 mg 03/03/24 21:00 03/04/24 08:33 Cephalexin 250 Mg Capsule PO 03/06/24 23:59 250 mg Q12HR LIO Administration Cholestyramine Resin 4 gm 03/01/24 21:00 03/03/24 22:35 Cholestyramine Light 4 Gm Powd.Pack PO 4 gm HS LIO Administration Dextrose 12.5 gm 03/01/24 09:47 Dextrose 50% 25 Gm/50 Ml Syringe IV PUSH PRN PRN Hypoglycemia Protocol Furosemide 40 mg 03/01/24 09:25 03/04/24 08:33 Furosemide 40 Mg Tablet PO 40 mg DAILY LIO Administration Glucagon 1 mg 03/01/24 09:47 Glucagon For Inj 1 Mg Vial IM PRN PRN Hypoglycemia Protocol Glucose 15 gm 03/01/24 09:47 Glucose Oral Gel 15 Gm Of Glucse In 37.5 Gm Tube PO PRN PRN Hypoglycemia Protocol Dextrose 1,000 mls @ 100 mls/hr 03/01/24 09:47 Dextrose 5% 1,000 Ml IVPB PRN PRN Hypoglycemia Protocol Insulin Aspart 2 - 5 units 03/01/24 12:00 03/04/24 12:48 Insulin Aspart (*Bkc) 100 Units/Ml SUB-Q Not Given TIDWM LIO Protocol Insulin Aspart 1 - 2 units 03/01/24 21:00 03/03/24 21:25 Insulin Aspart (*Bkc) 100 Units/Ml SUB-Q 1 units HS LIO Administration Protocol Loratadine 10 mg 03/01/24 09:00 03/04/24 08:33 Loratadine 10 Mg Tablet PO 10 mg DAILY LIO Administration Magnesium Oxide 400 mg 03/01/24 09:00 03/04/24 08:33 Magnesium Oxide 400 Mg Tablet PO 400 mg BID LIO Administration Metolazone 2.5 mg 03/02/24 08:30 03/04/24 12:51 Metolazone 2.5 Mg Tablet PO 2.5 mg [facility]@0830,1630 LIO Administration Metoprolol Succinate 200 mg 03/01/24 21:00 03/03/24 21:23 Metoprolol Succinate Ext Rel 100 Mg Tabcr PO 200 mg HS LIO Administration Mirtazapine 7.5 mg 03/03/24 21:00 03/03/24 22:39 Mirtazapine 7.5 Mg Tablet PO Not Given HS [facility] Multivitamins/Minerals 1 tablet 03/01/24 09:00 03/04/24 08:33 Opti-Gen Tab PO 1 tablet BID LIO Administration Mupirocin 1 applic 03/01/24 09:00 03/04/24 08:34 Mupirocin 2% Oint 22 Gm Tube TOPICAL 1 applic DAILY LIO Administration Ondansetron HCl 4 mg 02/29/24 18:42 Ondansetron Inj 4 Mg/2 Ml Vial IV PUSH Q4H PRN Nausea Pantoprazole Sodium 40 mg 03/01/24 09:00 03/04/24 08:33 Pantoprazole 40 Mg Tablet PO 40 mg QAM LIO Administration Potassium Chloride 40 meq 03/01/24 09:00 03/03/24 17:38 Potassium Chloride 20 Meq Packet (For Liquid) PO 40 meq MoWeFr@0900,1700 LIO Administration Triamcinolone Acetonide 1 applic 03/01/24 09:00 03/04/24 08:34 Triamcinolone Acet 0.1% Cream 15 Gm Tube TOPICAL 1 applic DAILY LIO Administration Radiology Results: ITS Impressions Chest X-Ray 02/29/24 17:04 IMPRESSION: Mild pulmonary vascular congestion, with a left-sided pleural effusion. No focal infiltrate. Abdomen/Pelvis CT 02/29/24 17:35 IMPRESSION: Findings within the rectosigmoid colon which may represent early/acute diverticulitis. Otherwise, no acute intra-abdominal pathology. Innumerable nonacute findings, as detailed above. Labs Labs: Laboratory Results - last 24 hr 03/03/24 03/03/24 03/03/24 13:40 16:48 20:58 WBC RBC Hgb Hct MCV MCH MCHC RDW Plt Count MPV Immature Gran % (Auto) Neut % (Auto) Lymph % (Auto) Stearns % (Auto) Eos % (Auto) Baso % (Auto) Lymph # (Auto) Stearns # (Auto) Eos # (Auto) Baso # (Auto) Abs Immat Gran (auto) Absolute Neuts (auto) Absolute Nucleated RBC Nucleated RBC % % Immature Plt Fraction Sodium Potassium Chloride Carbon Dioxide Anion Gap BUN Creatinine Estim Creat Clear Calc Estimated GFR Glucose POC Capillary Glucose 191 H 231 H Calcium C. difficile (PCR) Negative 03/04/24 03/04/24 03/04/24 07:13 07:53 12:47 WBC 7.3 RBC 3.96 L Hgb 10.4 L Hct 33.5 L MCV 84.6 MCH 26.3 MCHC 31.0 L RDW 17.7 H Plt Count 144 L MPV 11.0 H Immature Gran % (Auto) 0.3 Neut % (Auto) 56.7 Lymph % (Auto) 21.7 Stearns % (Auto) 11.3 H Eos % (Auto) 9.6 H Baso % (Auto) 0.4 Lymph # (Auto) 1.58 Stearns # (Auto) 0.8 H Eos # (Auto) 0.7 H Baso # (Auto) 0.0 Abs Immat Gran (auto) 0.02 Absolute Neuts (auto) 4.1 Absolute Nucleated RBC 0.000 Nucleated RBC % 0.0 % Immature Plt Fraction 5.9 Sodium 136 L Potassium 5.2 H Chloride 105 Carbon Dioxide 20 L Anion Gap 11 BUN 61 H Creatinine 1.77 H Estim Creat Clear Calc 21 Estimated GFR 27 L Glucose 183 H POC Capillary Glucose 160 H 183 H Calcium 8.7 C. difficile (PCR) Quality VTE Prophylaxis VTE prophylaxis: pharmacologic ordered Hospitalist MIPS Advance Care Plan I have confirmed that the patient's Advanced Care Plan is present, code status is documented, or surrogate decision maker is listed in patient medical record.: Yes Medication Reconciliation I have utilized all available resources to obtain, update and review the patients current medications (includes all prescriptions, OTC, herbals, cannabis, and nutritional supplements).: Yes
[2024-03-04 17:04] LABS: Glucose Point of Care 165 mg/dl (65-105)
[2024-03-04] MEDS: CHOLESTYRAMINE LIGHT 4 GM POWD.PACK PO (20:35)
[2024-03-04] MEDS: METOPROLOL SUCCINATE EXT REL 100 MG TABCR 200 MG PO (20:35)
[2024-03-04] MEDS: MIRTAZAPINE 7.5 MG TABLET PO (20:35)
[2024-03-04 20:58] LABS: Glucose Point of Care 223 mg/dl (65-105)
[2024-03-04] MEDS: INSULIN ASPART (*BKC) 100 UNITS/ML SUB-Q (21:34)
[2024-03-05] VITALS: PULSE 93
[2024-03-05 04:00] VITALS: PULSE 0
[2024-03-05 05:23] VITALS: BP 122/72; PULSE 88; RESP 16; TEMP 36.3; O2SAT 99
[2024-03-05 08:11] LABS: Glucose Point of Care 173 mg/dl (65-105)
[2024-03-05] MEDS: MORPHINE SULFATE (*CRX) 2 MG/ML INJ IV PUSH ×2 (08:58→11:17)
[2024-03-05] MEDS: diphenhydrAMINE HCl INJ 50 MG/ML VIAL 12.5 MG IV PUSH (11:16)
[2024-03-05 13:49] VITALS: BP 107/51; PULSE 87; RESP 18; TEMP 36.5; O2SAT 100
--- NOTE | 2024-03-05 15:48 | PN_ITS ---
This report was moved to the correct visit on 03/09/2024. The original report was signed by Feli Dunn APRN on 03/05/24 [id number]. Progress Note: A&P Assessment and Plan (1) Diverticulitis: Code(s): K57.92 - Diverticulitis of intestine, part unspecified, without perforation or abscess without bleeding Status: Acute Assessment and Plan: Acute (2) Acute on chronic renal failure: Qualifiers: Acute renal failure type: unspecified Chronic kidney disease stage: stage 4 (GFR 15-29) Qualified Code(s): N17.9 - Acute kidney failure, unspecified; N18.4 - Chronic kidney disease, stage 4 (severe) Code(s): N17.9 - Acute kidney failure, unspecified; N18.9 - Chronic kidney disease, unspecified Status: Acute Assessment and Plan: Acute (3) Type 2 diabetes mellitus with hyperglycemia, with long-term current use of insulin: Code(s): E11.65 - Type 2 diabetes mellitus with hyperglycemia; Z79.4 - intermediate (current) use of insulin Status: Chronic Assessment and Plan: Chronic (4) Chronic atrial fibrillation: Code(s): I48.20 - Chronic atrial fibrillation, unspecified Status: Acute Assessment and Plan: Chronic (5) Hypertensive heart disease with heart failure: Code(s): I11.0 - Hypertensive heart disease with heart failure Status: Acute Assessment and Plan: Chronic (6) Chronic anticoagulation: Code(s): Z79.01 - 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 of anticoagulants Status: Acute Assessment and Plan: Chronic (7) Anemia: Qualifiers: Anemia type: unspecified type Qualified Code(s): D64.9 - Anemia, unspecified Code(s): D64.9 - Anemia, unspecified Status: Acute Assessment and Plan: Chronic Plan -Diverticulitis: -UTI: -acute kidney injury on chronic kidney disease: -Atrial fibrillation: -Heart failure with reduced ejection fraction: -Insulin-dependent diabetes mellitus type 2: -Venous disease: -hypertension: -history of DVT: -chronic anticoagulation: -severe obstructive sleep apnea: -Karlee degeneration: -Patient placed on comfort measures per family wishes. -antibiotics and chronic pain medications discontinued per patient family wishes. -p.r.n. IV pain and anxiety medication. -provide patient and family support. -hospice consulted. Time Spent With Patient Time with patient: 15 - 25 minutes Subjective Date/time seen: 03/05/24 15:19 Patient confused and lethargic on bedrest with son bedside. Son states they discussed as a family and with the patient too that they stop all the medications and place the patient on comfort care. Interval history: Patient lethargic and confused on bedrest. Review of Systems Review of Systems: ROS unobtainable: Yes unobtainable due to mental status (Lethargic) Exam Narrative: HEENT: atraumatic, dry mucous membranes. Neck: Supple Lungs: Coarse bilaterally. Heart: Irregularly irregular, no murmurs. Abdomen: Soft, nondistended,positive bowel sounds. Extremities: 2+ edema bilateral lower extremities, 3+ edema bilateral feet. Neuro: Lethargic and confused, no focal neuro deficits noted. Objective Data Vital Signs Vital Signs: Vital Signs - 24 hr 03/05/2512:58 Oxygen Delivery Nasal Cannula Oxygen Flow Rate 2 Meds/Results Medications: Active Medications Generic Name Dose Route Start Last Admin Trade Name Freq PRN Reason Stop Dose Admin Diazepam 5 mg 03/05/24 14:05 Diazepam Inj (*Crx) 10 Mg/2 Ml Syringe IV PUSH Q6H PRN RESTLESS,ANXIETY,SOB,AGITATION Hydromorphone HCl 0.5 mg 03/05/24 14:04 03/05/24 14:24 Hydromorphone Hcl Inj (*Crx) 1 Mg/Ml Syr IV PUSH 0.5 mg Q2H PRN Administration Pain Hydromorphone HCl 50 mg/ 100 mls @ 0.5 mls/hr 03/05/24 14:30 03/05/24 14:22 Sodium Chloride IV CONT 0.25 mg/hr .Q24H LIO 0.5 mls/hr Administration 0.25 MG/HR Quality If No VTE Prophylaxis Answer both mechanical and pharmacologic: Reason no mechanical VTE proph: medical contraindication (Comfort care measures) Hospitalist MIPS Advance Care Plan I have confirmed that the patient's Advanced Care Plan is present, code status is documented, or surrogate decision maker is listed in patient medical record.: Yes Medication Reconciliation I have utilized all available resources to obtain, update and review the patients current medications (includes all prescriptions, OTC, herbals, cannabis, and nutritional supplements).: Yes Please be advised this is a medical document. It is intended for ychr-lk-anek communication. It is written in medical language and may contain unfamiliar abbreviations or verbiage. Medical documents are intended to carry relevant information, facts as evident, and the clinical opinion of the practitioner at the time of the encounter. This report may have been done utilizing a voice recognition system. Attempts have been made to correct errors. However, there may be uncorrected grammatical, spelling, and recognition errors present. The file time of this note does not necessarily represent the time the patient was seen. Report Initialized date/time: Feli Dunn APRN 03/05/24 / 1548 Electronically signed by: Feli Dunn APRN 03/05/24 1557 [facility]
--- NOTE | 2024-03-09 23:35 | PM.DS ---
DS: Admitting Diagnosis Discharge Date 03/05/24 Admitting Diagnosis Increased Generalized Weakness DS: Discharge Diagnosis Discharge Diagnosis (1) Diverticulitis: Code(s): K57.92 - Diverticulitis of intestine, part unspecified, without perforation or abscess without bleeding Status: Acute Assessment and Plan: Acute (2) Urinary tract infection: Qualifiers: Hematuria presence: without hematuria Urinary tract infection type: site unspecified Qualified Code(s): N39.0 - Urinary tract infection, site not specified Code(s): N39.0 - Urinary tract infection, site not specified Status: Acute Assessment and Plan: Acute (3) Acute on chronic renal failure: Qualifiers: Acute renal failure type: unspecified Chronic kidney disease stage: stage 4 (GFR 15-29) Qualified Code(s): N17.9 - Acute kidney failure, unspecified; N18.4 - Chronic kidney disease, stage 4 (severe) Code(s): N17.9 - Acute kidney failure, unspecified; N18.9 - Chronic kidney disease, unspecified Status: Acute Assessment and Plan: Acute (4) Urinary retention with incomplete bladder emptying: Code(s): R33.9 - Retention of urine, unspecified Status: Acute (5) Hypotension: Code(s): I95.9 - Hypotension, unspecified Status: Acute (6) Hypomagnesemia: Code(s): E83.42 - Hypomagnesemia Status: Acute (7) Heart failure with reduced ejection fraction: Code(s): I50.20 - Unspecified systolic (congestive) heart failure Status: Acute (8) Chronic atrial fibrillation: Code(s): I48.20 - Chronic atrial fibrillation, unspecified Status: Acute (9) Insulin dependent type 2 diabetes mellitus: Code(s): E11.9 - Type 2 diabetes mellitus without complications; 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 Patient has very poor prognosis with multiple comorbidities including HFrEF, A-Fib, CKD, worsened by advanced age. By family patient also appears to be declining within the last 3 months. Family and pt have decided on hospice and pt has been discharged to hospice per family and request. Pt continues to be provided with supportive care. Status at Discharge Functional status at discharge: bed bound Overall status at discharge: patient is not back to baseline (Hospice care) Time Spent with Patient Time attestation: Total time spent providing and/or coordinating discharge services: Time spent: Less than 30 minutes Exam Narrative: General: Very lethargic and confused on bedrest. HEENT: Atraumatic, PERRL, EOMI, Moist mucosa. NECK: Supple. Lungs: General crackles posteriorly, labored breathing with minimal activity and anxiety. Heart: RRR, no murmurs. Abdomen: Soft, non-tender, non-distended, +ve BS X4 Quadrants. Extremities: 3+ edema mala. Feet, 2+ edema mala. legs. Skin: Stage II-III sacral decubitus with macerated borders, no drainage noted. Wound to thoracic-spine with dressing. Neuro: Very confused on bedrest. No focal neuro deficits noted. Psych: Restless, exhausted and frustrated. Discharge Plan Discharge Attending physician on discharge: Navdeep Foy Consulting providers: Shruthi Brink; Jacquelin Rodrigues; Ainsley Gupta Discharging Clinician: Leonid Osborne Anticipated Discharge Date/Time: 03/05/24 18:00 Patient Disposition: Hospice - Home Activity: as tolerated Diet: as tolerated Patient Instructions: Apixaban (By mouth), Heart Failure (GEN), Wilkerson Catheter Placement and Care (GEN), Catheter-associated Urinary Tract Infection (GEN) Patient Language: Chinese Stand Alone Forms: General Discharge Information Discharge Medications: No Action Eliquis 2.5 mg tablet 2.5 mg PO BID loratadine 10 mg tablet 10 mg PO DAILY Josue Pinedo U-300 Insulin 300 unit/mL (1.5 mL) insulin pen 10 unit SUBCUT DAILY Qty: 6 3RF magnesium oxide 400 mg magnesium Tablet 400 mg PO BID PreserVision AREDS-2 [id number] [id number] Capsule 1 tablet PO BID cholestyramine-aspartame [Cholestyramine Light] 4 gram powder in packet 4 g PO HS Rx Instructions: administer w/meal; avoid other meds within 1hr before or 4-6hr after dose metolazone 2.5 mg tablet 2.5 mg PO 4XW Rx Instructions: joshua barr sat, sun take 30 prior to lasix metoprolol succinate 200 mg tablet extended release 24 hr 200 mg PO HS mupirocin 2 % ointment 1 applic TOPICAL DAILY Rx Instructions: mid back apply oint and then foam daily acetaminophen 325 mg capsule 650 mg PO Q6H PRN (Reason: pain (scale score 1-3)) potassium chloride [Klor-Con M20] 20 mEq tablet,ER particles/crystals 40 meq PO .COMPLEX Rx Instructions: 40 mEq orally bid wed/wed/wednesday; 40 meQ orally tid //Wed/Sun triamcinolone acetonide 0.1 % cream 1 applic topical DAILY Rx Instructions: inner thighs nystatin 100,000 unit/gram powder 1 applic topical BID Rx Instructions: under breast, groin, umer-area and behind knee creases insulin lispro [Humalog KwikPen Insulin] 100 unit/mL insulin pen 3 unit subcut .COMPLEX Rx Instructions: 3 units subcutaneously; with breakfast and lunch do not give if blood sugar is less than 130 plus sliding scale only with breakfast and lunch blood sugar less than 0 or greater than 400 [address] md 100-150 =0 units 151-200 =2 units 201-250 4 units 251-300 6 units ondansetron 4 mg tablet,disintegrating 4 mg PO Q6H PRN (Reason: nausea and vomiting) furosemide 40 mg Tablet 40 mg PO BID Rx Instructions: morning and noon pantoprazole 40 mg tablet,delayed release (DR/EC) 40 mg PO QAM Qty: 90 2RF Date of admission: 03/01/24 07:47 Primary Care Provider: Gabriel Jurado Admitting Provider: Leonid Osborne Attending physician on admission: Feli Dunn Condition: Stable Quality If No VTE Prophylaxis Answer both mechanical and pharmacologic: Reason no mechanical VTE proph: medical contraindication (Hospice) Reason no pharmacologic proph: medical contraindication (Hospice) Hospitalist MIPS Heart Failure (Exclusion) Patient has history of Heart Transplant or Left Ventricular Assistive Device?: No IF YES, STOP HERE Heart Failure (Qualifier) Patient has current or prior documentation of LVEF less than or equal to 40%, or mod/servere depressed LVSF?: No IF NO, STOP HERE
== END 2024-03-05 12:58 | disposition hospice, home (50) | DRG 391 ==
LOC: ANHED 18:40 → ANH3MEDSUR 19:35 → ANH2MED 21:00
PROVIDERS: Internal Medicine; Admitting Provider Internal Medicine; Emergency Provider Emergency Medicine; PCP Family Medicine; Visit Provider Nurse Practitioner Adult Health
DX: K57.32 Diverticulitis of large intestine without perforation or abscess without bleeding (principal); L89.153 Pressure ulcer of sacral region, stage 3; I48.20 Chronic atrial fibrillation, unspecified; I13.0 Hypertensive heart and chronic kidney disease with heart failure and stage 1 through stage 4 chronic kidney disease, or unspecified chronic kidney disease; N18.4 Chronic kidney disease, stage 4 (severe); I50.22 Chronic systolic (congestive) heart failure; N17.9 Acute kidney failure, unspecified; E46 Unspecified protein-calorie malnutrition; N39.0 Urinary tract infection, site not specified; B96.20 Unspecified Escherichia coli [E. coli] as the cause of diseases classified elsewhere; B96.1 Klebsiella pneumoniae [K. pneumoniae] as the cause of diseases classified elsewhere; E11.22 Type 2 diabetes mellitus with diabetic chronic kidney disease; D50.9 Iron deficiency anemia, unspecified; E11.42 Type 2 diabetes mellitus with diabetic polyneuropathy; G47.33 Obstructive sleep apnea (adult) (pediatric); F41.9 Anxiety disorder, unspecified; N39.3 Stress incontinence (female) (male); E83.42 Hypomagnesemia; I95.9 Hypotension, unspecified; K21.9 Gastro-esophageal reflux disease without esophagitis; R33.9 Retention of urine, unspecified; E66.9 Obesity, unspecified; Z66 Do not resuscitate; H35.30 Unspecified macular degeneration; Z86.718 Personal history of other venous thrombosis and embolism; Z86.73 Personal history of transient ischemic attack (TIA), and cerebral infarction without residual deficits; Z79.01 Long term (current) use of anticoagulants; Z85.038 Personal history of other malignant neoplasm of large intestine; Z90.710 Acquired absence of both cervix and uterus; Z90.49 Acquired absence of other specified parts of digestive tract; Z98.42 Cataract extraction status, left eye; Z98.41 Cataract extraction status, right eye; Z68.35 Body mass index [BMI] 35.0-35.9, adult
CPT/HCPCS: 36415; 71045; 74176; 80048; 80053; 81001; 82948; 83605; 83690; 83735; 84145; 84484; 85025; 85027; 85055; 85610; 85730; 87040; 87045; 87086; 87186; 87427; 87449; 87493; 87637; 96361; 96365; 96366; 96367; 96368; 96375; 96376; 97166; 99212; 99285; A9270; G0378; G0463; J0696; J1200; J1815; J1836; J2270; J2405; J3475; J7030; P9047

== ENCOUNTER 2024-03-05 13:41 | HOS | payer OTHER, SELFPAY ==
--- OUTSIDE RECORDS SUMMARY | 2024-03-05 13:27 | XMS_ITS | Encounter Summary ---
Author Organization [employer] Address [address] [place] [address] Care Team Providers Care Client Resource Specialist Name Role Phone Gabriel Jurado MD Primary Care Provider [phone] Encounter Details Date Type Department Care Team (Late st Contact Info) Description 08/17/2017 Lab Requisition [facility] Laboratory Services [facility] [place] [facility] [address] [place] [address] Geovani De Jesus MD [address] [place] [address] Heart failure (CMS/HCC) Social History [...] - 145 mmol/L 08/17/2017 9:50 AM CDT [facility] LABORATORY [facility] POTASSIUM 3.0(L) 3.5 - 5.0 mmol/L 08/17/2017 9:50 AM T [employer] LABORATORY SERVICES [facility] CHLORIDE 97(L) 98 - 107 mmol/L 08/17/2017 9:[address] [facility] [employer] LABORATORY SERVICES - [facility] CO2 30(H) 22 - 29 mmol/L 08/17/2017 9:50 AM T [employer] LABORATORY SERVICES [facility] CALCIUM 9.0 8.6 - 10.2 mg/dL 08/17/2017 9:[address] [facility] [employer] LABORATORY SERVICES [facility] BUN 46(H) 8 - 23 mg/dL 08/17/2017 9:[address] [facility] [employer] LABORATORY SERVICES [facility] CREATININE 1.65(H) 0.51 - 0.95 mg/dL 08/17/2017 9:[address] [facility] [employer] [facility] Comment: The GFR result is not clinically significant on patients <18 or >70 years of age. GLUCOSE 104(H) 74 - 99 mg/dL 08/17/2017 9:[address] [facility] [employer] SERVICES [facility] GFR 30 mL/min/1.7 3 sq meter 08/17/2017 9:[address] [facility] [employer] SERVICES [facility] Comment: eGFR has not been validated [...] 3 sq meter 08/17/2017 9:50 AM T [employer] LABORATORY SERVICES [facility] ANION GAP 16 8 - 16 mmol/L 08/17/2017 9:[address] [facility] [employer] [facility] Blood Venipuncture / Unknown 08/17/2017 6:22 AM CDT 08/17/2017 8:37 AM CDT Geovani De Jesus MD CHEMISTRY ORDERABLES Final R esult [employer] [facility] CLIA# [id number] [address] [place] [address] * (ABNORMAL) CBC WITH DIFFERENTIAL (08/17/2017 6:22 AM CDT) WBC 8.7 4.0 - 9.8 K/uL 08/17/2017 10:28 AM CDT [employer] LABORATORY SERVICES - [facility] RBC 3.75(L) 3.90 - 4.90 M/uL 08/17/2017 10:28 AM CDT [employer] LABORATORY SERVICES - [facility] HEMOGLOBIN 7.9(L) 11.8 - 14.8 g/dL 08/17/2017 10:28 AM CDT [employer] LABORATORY SERVICES - [facility] HEMATOCRIT 26.5(L) 35.5 - 44.0 % 08/17/2017 10:28 AM CDT [employer] LABORATORY SERVICES - . [facility] MCV 70.7(L) 82.0 - 99.0 fL 08/17/2017 10:28 AM CDT [employer] LABORATORY SERVICES - [facility] MCH 21.1(L) 27.2 - 32.6 pg 08/17/2017 10:28 AM CDT [employer] LABORATORY SERVICES - . [facility] MCHC 29.8(L) 31.5 - 35.5 g/dL 08/17/2017 10:28 AM CDT [employer] LABORATORY SERVICES - . [facility] RDW 17.1(H) 11.5 - 14.5 % 08/17/2017 10:28 AM CDT [employer] LABORATORY SERVICES - [facility] RDW-STDEV 43.0 37.1 - 48.7 fL 08/17/2017 10:28 AM CDT [employer] LABORATORY SERVICES - [facility] PLATELETS 338 140 - 350 K/uL 08/17/2017 10:28 AM CDT [employer] LABORATORY SERVICES - [facility] MPV 9.6 9.3 - 12.4 fL 08/17/2017 10:28 AM CDT [employer] LABORATORY SERVICES - [facility] NEUTROPHILS 49 % 08/17/2017 10:28 AM CDT [employer] LABORATORY SERVICES - [facility] LYMPHOCYTES 30 % 08/17/2017 10:28 AM CDT [employer] LABORATORY SERVICES - [facility] MONOCYTES 14 % 08/17/2017 10:28 AM CDT [employer] LABORATORY SERVICES - [facility] EOSINOPHILS 6 % 08/17/2017 10:28 AM CDT [facility] LABORATORY SERVICES - [facility] BASOPHILS 1 % 08/17/2017 10:28 AM CDT [facility] LABORATORY SERVICES - [facility] IMMATURE GRANULOCYTES 1 % 08/17/2017 10:28 AM CDT [facility] LABORATORY SERVICES - [facility] Comment:IG (Immature Granulo cyte) count includes Metamyelocytes, Myelocytes, and Promyelocytes NEUTROPHIL ABSOLUTE 4.22 1.90 - 7.00 K/uL 08/17/2017 10:28 AM CDT [facility] LABORATORY SERVICES - [facility] LYMPHOCYTE ABSOLUTE 2.60 0.70 - 4.50 K/uL 08/17/2017 10:28 AM CDT [facility] LABORATORY SERVICES - [facility] MONOCYTE ABSOLUTE 1.23 0.10 - 1.30 K/uL 08/17/2017 10:28 AM CDT [facility] LABORATORY SERVICES - [facility] EOSINOPHIL ABSOLUTE 0.54 0.00 - 0.70 K/uL 08/17/2017 10:28 AM CDT [employer] LABORATORY SERVICES - [facility] BASOPHILS ABSOLUTE 0.04 0.00 - 0.20 K/uL 08/17/2017 10:28 AM CDT [employer] LABORATORY SERVICES - [facility] IMMATURE GRANULOCYTES ABSOLUTE 0.04(H) 0.00 - 0.03 K/uL 08/17/2017 10:28 AM T [employer] LABORATORY SERVICES - [facility] Blood Venipuncture / Unknown 08/17/2017 6:22 AM CDT 08/17/2017 8:37 AM CDT Geovani De Jesus MD HEMATOLOGY ORDERABLES Final Result [id number] 5 [facility] [address] [address] documented in this encounter Visit Diagnoses Diagnosis Heart failure (CMS/HCC) Heart failure, unspecified documented in this encounter Care Teams Client Resource Specialist Relationship Specialty Start Date End Date Gabriel Jurado MD [address] [facility] [address] [place] [address] PCP - General Family Practice 04/04/19 documented as of this encounter
--- OUTSIDE RECORDS SUMMARY | 2024-03-05 13:27 | XMS_ITS | Encounter Summary ---
Author Organization [facility] Healthcare Address [address] [place] [address] Care Team Providers Care Director Script Name Role Phone Gabriel Jurado MD Primary Care Provider Gabriel Jurado MD Unavailable [phone] Encounter Details Date Type Department Care Team (Late st Contact Info) Description 03/02/2024 Telephone [facility] Medical [facility] Cardiology [address] [facility] [address] [place] [address] Galo Monteiro MD [address] [id number] Social History Tobacco Use Types Packs/Day Years Used Date Smoking Tobacco: Never Passive Smoke Exposure: Never Smokeless Tobacco: Never Alcohol Use Standard Drinks/Week Comments No 0 (1 standard drink = 0.6 oz pur e alcohol) Comments Unknown Sex and Gender Information Value Date Recorded Sex Assigned at Not on file Legal Sex Female 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 Advised daughter to discuss with nurse caring for pt. I cannot request a cardiology consult and this would need to be done by the hospitalist. Daughter verbalizes understanding. WORKS ASSEMBLY SUPERVISOR * Telephone Encounter - Dorothy Glez - 03/02/2024 10:52 AM CST Pt dtr Lynne states pt is at and she does not think cardiology has been in to see her yet. She would like for someone in our group to go check in on patient. She is in room 255. Wants to know whatpts plan of care will be. Contact: WORKS ASSEMBLY SUPERVISOR documented in this encounter Plan of Treatment Not on file documented as of this encounter Visit Diagnoses Not on filedocumented in this encounter Care Teams Director Script Relationship Specialty Start Date End Date Gabriel Jurado MD [address] [place] [address] PCP - General Family Medicine 05/12/21 Gabriel Jurado MD [address] [place] [address] Family Medicine 05/12/21 documented as of this encounter
--- OUTSIDE RECORDS SUMMARY | 2024-03-05 13:27 | XMS_ITS | Clinical Summary ---
Author Organization [facility] Address [address] [place] [address] Care Team Providers Care Pasta Maker Name Role Phone Gabriel Jurado MD Primary Care Provider Gabriel Jurado MD Unavailable [phone] Allergies Active Allergy Reactions Criticality Noted Date [...] ns:Chronic combined systolic and diastolic heart failure ([facility]) ([facility]) Take 2 tablet/capsule (20 mEq total) by mouth 2 (two) times a day Take 2 additional tablets every day you take a metolazone. 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 ([facility]) 02/12/2012 Overview (05/16/2016): Hypertension Diabetes mellitus 02/12/2012 Overview (05/16/2016): Diabetes mellitus Atherosclerosis of coronary artery 02/12/2012 Overview (05/16/2016): CAD (coronary artery disease) Encounters Date Type Department Care Team Description 03/02/[address] [address] Galo Monteiro MD 02/29/[address] [address] Ene Tolentino NP Test Results 02/22/[address] [phone] Galo Monteiro MD 02/10/2024 3:30 PM AGILE SCRUM COACH Office Visit [address] [address] Ene Tolentino NP Chronic atrial fibrillation (HCC) (Primary Dx); Edema, lower extremity; 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) 02/03/[address] [address] Galo Monteiro MD Lab Results 01/20/2024 Orders Only [address] [address] Noreen Herring NP 01/18/2024 11:00 AM [employer]CRUM CO[employer] Office Visit [address] [address] Ene Tolentino NP Chronic atrial fibrillation (HCC) (Primary Dx); 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); Edema, lower extremity; Hospital discharge follow-up; Chronic diastolic heart failure (HCC); Persistent atrial fibrillation (HCC) 01/18/2024 Telephone [facility] Cardiology [address] [facility] [address] [place] [phone] Galo Monteiro MD Shortness of Breath; Weight Gain 01/17/2024 Telephone [facility] Cardiology [address] [place] [address] [place] [phone] Galo Monteiro MD Leg Swelling; Med Management 01/03/2024 Telephone [facility] Cardiology [address] [place] [address] [place] [phone] Galo Monteiro MD 12/24/2023 Orders Only [facility] Cardiology [address] [place] [address] [place] [phone] Noreen Herring NP 12/23/2023 Telephone [facility] Cardiology [address] [place] [address] [place] [phone] Galo Monteiro MD Med Management from [...] on file Legal Sex Female 7:12 PM AGILE SCRUM COACH Gender Identity Not on file Sexual Orientation Not on file Obstetrics History Last Filed Vital Signs Vital Sign Reading Time Taken Comments Blood Pressure 110/62 02/10/2024 3:47 PM AGILE SCRUM COACH Pulse 92 02/10/2024 3:47 PM AGILE SCRUM COACH Temperature - - Respiratory Rate 15 12/08/2019 9:51 AM CDT Oxygen Saturation 94% 02/10/2024 3:47 PM AGILE SCRUM COACH Inhaled Oxygen Concentration - - Weight 93 kg (205 lb) 02/10/2024 3:47 PM AGILE SCRUM CO[employer] Height 160 cm (5' 3 ) 02/10/2024 3:47 PM [employer]ILE SCRUM COACH Body Mass Index 36.31 02/10/2024 3:47 PM AGILE SCRUM COACH Plan of Treatment Health Maintenance Due Date [...] CARDIOLOGY DOCUMENT SCAN Routine 12/23/2023 3:03 PM AGILE SCRUM COACH CARDIOLOGY DOCUMENT SCAN Routine 12/22/2023 5:00 PM AGILE SCRUM COACH CARDIOLOGY DOCUMENT SCAN Routine 12/21/2023 4:54 PM AGILE SCRUM COACH CARDIOLOGY DOCUMENT SCAN Routine 12/20/2023 4:38 PM AGILE SCRUM COACH LIPID PANEL Routine 02/01/2019 HEMOGLOBIN A1C Routine [...] N/A EXTERNAL LAB SCRIBED eGFR in NonAfrican Citizen Of [place] 30 > or = 60 EXTERNAL LAB Blood 02/01/2024 Ene Tolentino NP LAB BLOOD ORDERABLES [place] l Result EXTERNAL LAB * Cardiology Document Scan (12/23/2023 3:03 PM AGILE SCRUM COACH) Anatomical Region Laterality Modality Other Noreen Herring NP CV CARDIAC SERVICES PROCEDUR ES Final Result * Cardiology Document Scan (12/22/2023 5:00 PM AGILE SCRUM COACH) Anatomical Region Laterality Modality Other Galo Monteiro MD CV CARDIAC SERVICES PROCE DURES Final Result * Cardiology Document Scan (12/21/2023 4:54 PM AGILE SCRUM COACH) Anatomical Region Laterality Modality Other Noreen Herring NP CV CARDIAC SERVICES PROCEDUR ES Final Result * Cardiology Document Scan (12/20/2023 4:38 PM AGILE SCRUM COACH) Anatomical Region Laterality Modality Other Noreen Herring [...] Recently Relevant to Health Maintenance Insurance MEDICARE [facility] MEDICARE [facility] MEDICARE [facility] Care Teams Pasta Maker Relationship Specialty Start Date End Date Gabriel Jurado MD [address] [place] [address] PCP - General Family Medicine 05/12/21 Gabriel Jurado MD [address] [place] [address] Family Medicine 05/12/21
--- OUTSIDE RECORDS SUMMARY | 2024-03-05 13:27 | XMS_ITS | Encounter Summary ---
Author Organization [employer] Address [address] [place] [address] Care Team Providers Care Legal Recovery Specialist Name Role Phone Gabriel Jurado MD Primary Care Provider Encounter Details Date Type Department Care Team (Late st Contact Info) Description 08/30/2017 Lab Requisition [facility] General Laboratory Services [address] [place] [address] Geovani De Jesus MD [address] [place] [address] Encounter for general adult medical [...] PERCENT SATURATION (08/30/2017 6:49 AM CDT) Pathologist [facility] IRON 15(L) 37 - 145 ug/dL 08/30/2017 11:52 AM CDT [facility] LABORATORY SERVICES [facility] TIBC 411 250 - 450 ug/dL 08/30/2017 11:52 AM CDT [facility] LABORATORY [facility] IRON % SATURATION 4(L) 15 - 50 % 08/30/2017 11:52 AM T [facility] LABORATORY [facility] TRANSFERRIN 324 200 - 360 mg/dL 08/30/2017 11:52 AM T [facility] LABORATORY SERVICES [facility] Blood Venipuncture / Unknown 08/30/2017 6:49 AM CDT 08/30/2017 9:24 AM CDT us Geovani De Jesus MD CHEMISTRY ORDERABLES Final R esult [facility]# [id number] [address] [facility] [place] [address] * (ABNORMAL) CBC WITH DIFFERENTIAL (08/30/2017 6:49 AM CDT) Pathologist [facility] WBC 9.1 4.0 - 9.8 K/uL 08/30/2017 10:55 AM CDT [facility] [employer] [facility] RBC 4.03 3.90 - 4.90 M/uL 08/30/2017 10:55 AM CDT [facility] LABORATORY [facility] HEMOGLOBIN 8.0(L) 11.8 - 14.8 g/dL 08/30/2017 10:55 AM CDT [facility] LABORATORY [facility] HEMATOCRIT 27.5(L) 35.5 - 44.0 % 08/30/2017 10:55 AM T [facility] LABORATORY [facility] MCV 68.2(L) 82.0 - 99.0 fL 08/30/2017 10:55 AM CDT [email or web address] LABORATORY SERVICES - [facility] MCH 19.9(L) 27.2 - 32.6 pg 08/30/2017 10:55 AM CDT [email or web address] LABORATORY SERVICES - [facility] MCHC 29.1(L) 31.5 - 35.5 g/dL 08/30/2017 10:55 AM CDT [email or web address] LABORATORY SERVICES - [facility] RDW 17.9(H) 11.5 - 14.5 % 08/30/2017 10:55 AM CDT [email or web address] LABORATORY SERVICES - [facility] RDW-STDEV 43.1 37.1 - 48.7 fL 08/30/2017 10:55 AM CDT [email or web address] LABORATORY SERVICES - . [facility] PLATELETS 327 140 - 350 K/uL 08/30/2017 10:55 AM CDT [email or web address] LABORATORY SERVICES - [facility] MPV 9.7 9.3 - 12.4 fL 08/30/2017 10:55 AM [email or web address] LABORATORY SERVICES - . [facility] NEUTROPHILS 39 % 08/30/2017 10:55 AM CDT [email or web address] LABORATORY SERVICES - . [facility] LYMPHOCYTES 42 % 08/30/2017 10:55 AM CDT [email or web address] LABORATORY SERVICES - [facility] MONOCYTES 14 % 08/30/2017 10:55 AM CDT [email or web address] LABORATORY SERVICES - . [facility] EOSINOPHILS 5 % 08/30/2017 10:55 AM CDT [email or web address] LABORATORY SERVICES - . [facility] BASOPHILS 0 % 08/30/2017 10:55 AM CDT [email or web address] LABORATORY SERVICES - . [facility] IMMATURE GRANULOCYTES 0 % 08/30/2017 10:55 AM CDT [email or web address] LABORATORY SERVICES - . [facility] NEUTROPHIL ABSOLUTE 3.52 1.90 - 7.00 K/uL 08/30/2017 10:55 AM CDT [email or web address] LABORATORY SERVICES - . [facility] LYMPHOCYTE ABSOLUTE 3.80 0.70 - 4.50 K/uL 08/30/2017 10:55 AM CDT [email or web address] LABORATORY SERVICES - [facility] MONOCYTE ABSOLUTE 1.26 0.10 - 1.30 K/uL 08/30/2017 10:55 AM CDT [email or web address] LABORATORY SERVICES - [facility] EOSINOPHIL ABSOLUTE 0.48 0.00 - 0.70 K/uL 08/30/2017 10:55 AM CDT [email or web address] LABORATORY SERVICES - . [facility] BASOPHILS ABSOLUTE 0.04 0.00 - 0.20 K/uL 08/30/2017 10:55 AM CDT [facility] LABORATORY [facility] IMMATURE GRANULOCYTES ABSOLUTE 0.02 0.00 - 0.03 K/uL 08/30/2017 10:55 AM CDT [facility] LABORATORY [facility] Blood Venipuncture / Unknown 08/30/2017 6:49 AM CDT 08/30/2017 9:24 AM CDT Geovani De Jesus MD HEMATOLOGY ORDERABLES Final Result [facility] CLIA# [id number] [address] [place] [address] * PHOSPHORUS (08/30/2017 6:49 AM CDT) PHOSPHORUS 3.3 2.5 - 4.5 mg/dL 08/30/2017 11:52 AM CDT [facility] LABORATORY [facility] Blood Venipuncture / Unknown 08/30/2017 6:49 AM CDT 08/30/2017 9:24 AM CDT Geovani De Jesus MD CHEMISTRY ORDERABLES Final R esult Performing Organization Address [facility] Co de Phone Number [facility] [employer] [facility] CLIA# [id number] [address] [place] [address] * (ABNORMAL) MAGNESIUM LEVEL (08/30/2017 6:49 AM CDT) MAGNESIUM 1.5(L) 1.6 - 2.4 mg/dL 08/30/2017 11:52 AM CDT [facility] LABORATORY [facility] Blood Venipuncture / Unknown 08/30/2017 6:49 AM CDT 08/30/2017 9:24 AM CDT Geovani De Jesus MD CHEMISTRY ORDERABLES Final R esult Performing Organization Address City/[facility]/ZIP Co de Phone Number [facility] [employer] [facility]# [id number] [address] [place] [address] * (ABNORMAL) BASIC METABOLIC PANEL (08/30/2017 6:49 AM CDT) SODIUM 136 136 - 145 mmol/L 08/30/2017 12:01 PM [facility] [employer] [facility] POTASSIUM 2.7(LL) 3.5 - 5.0 mmol/L 08/30/2017 12:01 PM [facility] LABORATORY [facility] Comment:Results called to edgar jc by SANTI ALFORD at 12:01 PM on 08/30/2017 and read back verified. CHLORIDE 89(L) 98 - 107 mmol/L 08/30/2017 12:01 PM [facility] [employer] [facility] CO2 31(H) 22 - 29 mmol/L 08/30/2017 12:01 PM [facility] [employer] [facility] CALCIUM 9.2 8.6 - 10.2 mg/dL 08/30/2017 12:01 PM [facility] [employer] [facility] BUN 49(H) 8 - 23 mg/dL 08/30/2017 12:01 PM [facility] [employer] [facility] CREATININE 1.89(H) 0.51 - 0.95 mg/dL 08/30/2017 12:01 PM [facility] [employer] [facility] Comment: The GFR result is not clinically significant on patients <18 or >70 years of age. GLUCOSE 106(H) 74 - 99 mg/dL 08/30/2017 12:01 PM [facility] [employer] [facility] GFR 25 mL/min/1.7 3 sq meter 08/30/2017 12:[address] [email or web address] Comment: eGFR has not been [...] 3 sq meter 08/30/2017 12:01 PM CDT [facility] LABORATORY SERVICES - [facility] ANION GAP 16 8 - 16 mmol/L 08/30/2017 12:01 PM CDT [facility] LABORATORY SERVICES - [facility] Blood Venipuncture / Unknown 08/30/2017 6:49 AM CDT 08/30/2017 9:24 AM CDT us Geovani De Jesus MD CHEMISTRY ORDERABLES Final R esult [facility] LABORATORY SERVICES [facility] CLIA# [id number] [address] [place] [address] documented in this encounter Visit Diagnoses Diagnosis Encounter for general adult medical examination without abnormal findings Routine general medical examination at a health care facility documented in this encounter Care Teams Legal Recovery Specialist Relationship Specialty Start Date End Date Gabriel Jurado MD [address] [facility] [address] [place] [address] PCP - General Family Practice 04/04/19 documented as of this encounter
--- OUTSIDE RECORDS SUMMARY | 2024-03-05 13:27 | XMS_ITS | Encounter Summary ---
Author Organization [employer] Address [address] [place] [address] Care Team Providers Care Test Hole Driller Name Role Phone Gabriel Jurado MD Primary Care Provider [phone] Encounter Details Date Type Department Care Team (Late st Contact Info) Description 09/02/2017 Lab Requisition [employer] [facility] [address] [place] [address] [place] [address] Geovani De Jesus MD [address] [place] [address] Encounter for general adult medical [...] - 145 mmol/L 09/02/2017 11:20 AM CDT [facility] POTASSIUM 3.0(L) 3.5 - 5.0 mmol/L 09/02/2017 11:20 AM CDT [facility] CHLORIDE 93(L) 98 - 107 mmol/L 09/02/2017 11:20 AM [facility] [employer] [facility] CO2 30(H) 22 - 29 mmol/L 09/02/2017 11:20 AM [facility] [employer] [facility] CALCIUM 9.5 8.6 - 10.2 mg/dL 09/02/2017 11:20 AM [facility] [employer] BUN 54(H) 8 - 23 mg/dL 09/02/2017 11:20 AM [facility] [employer] [facility] CREATININE 1.92(H) 0.51 - 0.95 mg/dL 09/02/2017 11:20 AM [facility] [employer] [facility] Comment: The GFR result is not clinically significant on patients <18 or >70 years of age. GLUCOSE 43(LL) 74 - 99 mg/dL 09/02/2017 11:20 AM [facility] [employer] [facility] Comment:Results called to Cinthia Swartz by Ana George at 11:19 AM on 09/02/2017 and read back verified. GFR 25 mL/min/1.7 3 sq meter 09/02/2017 11:20 AM [facility] [employer] [facility] Comment: eGFR has not been [...] mL/min/1.7 3 sq meter 09/02/2017 11:20 AM [facility] ANION GAP 16 8 - 16 mmol/L 09/02/2017 11:20 AM [facility] [employer] [facility] Blood Venipuncture / Unknown 09/02/2017 6:10 AM CDT 09/02/2017 9:51 AM CDT us Geovani De Jesus MD CHEMISTRY ORDERABLES Final R esult [facility]# [id number] [address] [address] documented in this encounter Visit Diagnoses Diagnosis Encounter for general adult medical examination without abnormal findings Routine general medical examination at a health care facility documented in this encounter Care Teams Test Hole Driller Relationship Specialty Start Date End Date Gabriel Jurado MD [address] [facility] [address] [place] [id number] PCP - General Family Practice 04/04/19 documented as of this encounter
--- OUTSIDE RECORDS SUMMARY | 2024-03-05 13:27 | XMS_ITS | Encounter Summary ---
Author Organization [employer] Address [address] [place] [address] Care Team Providers Care Support Architect Name Role Phone Gabriel Jurado MD Primary Care Provider [phone] Encounter Details Date Type Department Care Team (Late st Contact Info) Description 09/01/2017 Lab Requisition [facility] [employer] [facility] [address] [place] [address] Geovani De Jesus MD [address] [place] [address] Encounter for general adult medical [...] - 2.4 mg/dL 09/01/2017 10:29 AM CDT [facility] Blood Venipuncture / Unknown 09/01/2017 6:31 AM CDT 09/01/2017 9:17 AM CDT Geovani De Jesus MD CHEMISTRY ORDERABLES Final R esult [facility]# [id number] [address] [place] [address] documented in this encounter Visit Diagnoses Diagnosis Encounter for general adult medical examination without abnormal findings Routine general medical examination at a health care facility documented in this encounter Care Teams Support Architect Relationship Specialty Start Date End Date Gabriel Jurado MD [address] [facility] [address] [place] [address] PCP - General Family Practice 04/04/19 documented as of this encounter
--- OUTSIDE RECORDS SUMMARY | 2024-03-05 13:27 | XMS_ITS | Data Portability ---
Author Organization [place] - [facility], Main Office Address [address] [place] [address] Care Team Providers Care Bb Shot Packer Name Role Phone P [facility] FAX OTHER GABRIEL VELASQUEZ Primary Care Provider [phone] YVROSE SHAIKH Orthopedic Surgeon NOREEN HERRING Lighter Captain DUY BONNER Urologist Assessment Encounter Date Assessment Date Assessment LastModified by Organization Details LastModified Time 01/21/2024 01/21/2024 Extend Keflex to a 10-day course. HgA1c pending from this AM. Labs (CBC, BMP, Mag, CRP, BNP) on Wednesday. Nursing to continue to send labs/weights/vi tals to cardiology Dr. Monteiro. They are managing diuretics. Not available 01/21/2024 12:24:34 01/24/2024 01/24/2024 Pt will d/c back to [facility] apartment at [place] with [facility] and family oversight on 01/25. CXR 2 [...] tablet,exte nded release 24 hr 2023 024 [facility] [address] [place], [address], 4 14:09:11 magnesium 400 mg (as magnesium oxide) tablet 2023 024 mai [facility] [address] [place], [address], 5 16:38:10 metolazone 2.5 mg tablet [address] [place] [address] Pharmacy [address] [place], [address], 5 11:22:30 potassium chloride ER 10 mEq tablet,exte nded release 2023 024 [facility] [address] [place], [address], 11:46:25 Patient TargetsNo targets recorded. Patient Instructions Encounter Date Encounter Id Patient Instructions Last Modified By Organization Details Last Modified Time 01/21/[id number] I spent {{ 32#}} minutes providing care to the patient today. More than 50% of that time was spent in discussing the expected course of the disease, discussing prognosis, coordinating care and counseling of the patient/family. Not available 01/21/2024 12:25:56 01/24/[id number] I spent {{ 40#}} minutes providing care [...] worsening symptoms. Not available 01/24/2024 14:09:43 02/25/2024 [id number] I spent {{ 60#}} minutes providing care to the patient today. More than 50% of that time was spent in discussing the expected course of the disease, discussing prognosis, coordinating care and counseling of the patient/family. Not available 02/25/2024 17:40:59 02/27/2024 [id number] I spent {{ >55#} } minutes providing [...] above [email or web address] Not available 02/27/2024 21:31:44 02/28/2024 [id number] I spent {{ 36#}} minutes providing care [...] No observ ation record ed. [facility] ([facility] [address], [place], [address], 01/25/2024 10:15:34 Result Notes None recorded. Procedures Surgical History Date Name Laterality Status Provider Name and Address Organization Details Recorded Time bilateral cataract extraction completed Chad Coates [facility] 01/04/2024 01:16:01 cholecystectomy completed Chad Coates [facility] 01/04/2024 01:16:08 Hysterectomy/bladde r repair completed Chad Coates [facility] 01/04/2024 01:16:17 extended right hemicolectomy completed Chad Coates [facility] 01/04/2024 01:16:43 Imaging Results Imaging Date Name Status LastModified by Organiz ation Details LastModified Time 01/24/2024 XR, chest, 2 view completed [facility] ([facility] [address], [place], [address], 01/25/2024 10:15:34 Procedure Notes None recorded. Medical Equipment None Reported. Allergies Allergen ID Allergen Name Allergen Category Reaction Reaction Severity Criticality Documentation Date Start Date Code Code System Note Provider Name and Address Organization Details Recorded Time [id number] 2824e cetirizin e medicatio n Not available Not available Not available 01/01/2024 47206 RxNorm Not Available Not Available Not Available [id number] 2824e diazepam medicatio n Not available Not available Not available 01/01/2024 3322 RxNorm Not Available Not Available Not Available [id number] 2824e gabapenti n medicatio n Not available Not available Not available 01/01/2024 31417 RxNorm Not Available Not Available Not Available [id number] [id number] 2824e hydrocodo ne Not available Not available Not available Not available 01/01/2024 5489 RxNorm Not Available Not Available Not Available [id number] 2824e Levaquin medicatio n Not available Not available Not available 01/01/2024 36040 2 RxNorm Not Available Not Available Not Available [id number] 2824e levetirac etam medicatio n Not available Not available Not available 01/01/2024 35348 7 RxNorm Not Available Not Available Not Available [id number] 2824e Lyrica medicatio n Not available Not available Not available 01/01/2024 44830 1 RxNorm Not Available Not Available Not Available [id number] 2824e zolpidem medicatio n Not available Not available Not available 01/01/2024 44100 RxNorm Not Available Not Available Not Available [id number] 2824e adhesive tape environme nt,medica tion Not available Not available Not available 01/01/2024 49701 UNK Not Available Not Available Not Available [...] /min 95 % 95 % 37 kg/m2 38843.3 7 g 118 mm[Hg] 71 mm[Hg] Concepcion Faust, [address] [place], [address], [place] - [facility] 4 [...] /min 96 % 96 % 37.3 kg/m2 57726.8 3 g 117 mm[Hg] 65 mm[Hg] [place] [address] [place], [address], [place] - [facility] 4 13:28:03 Date Recorded Body height Heart rate Body temperature Respiratory rate Oxygen saturation Oxygen saturation in Arterial blood by Pulse oximetry Systolic blood pressure Diastolic blood pressure Provider Name and Address Organization Details Last Updated DateTime 5 160.02 cm 85 /min 97.8 [degF] 18 /min 97 % 97 % 100 mm[Hg] 61 mm[Hg] [place] [address] [place], [address], [facility] 5 17:29:41 Date Recorded Body height Body mass index (BMI) Body weight Heart rate Body temperature Respiratory rate Oxygen saturation Oxygen saturation in Arterial blood by Pulse oximetry Inhaled oxygen flow rate Systolic blood pressure Diastolic blood pressure Provider Name and Address Organization Details Last Updated DateTime 5 160.02 cm 36 kg/m2 88680.0 5 g 103 /min 98.2 [degF] 18 /min 99 % 99 % 2 L/min 117 mm[Hg] 54 mm[Hg] [place] [address] [place], [address], [place] - [facility] 5 20:39:23 Date Recorded Body height Respiratory rate Body mass index (BMI) Body weight Heart rate Body temperature Oxygen saturation Oxygen saturation in Arterial blood by Pulse oximetry Systolic blood pressure Diastolic blood pressure Provider Name and Address Organization Details Last Updated DateTime 5 160.02 cm 18 /min 36.7 kg/m2 71009.3 4 g 80 /min 98.2 [degF] 99 % 99 % 95 mm[Hg] 56 mm[Hg] [place] [address] [place], [address], [place] - [facility] 5 16:36:21 Social History Question Answer Notes LastModified by Organizat ion Details LastModified Time Tobacco Smoking Status Never Smoker Chad Coates null, [place] - [facility] 01/04/2024 01:17:40 What Is Your Level Of Alcohol Consumption? None Information not available 01/04/2024 What Is Your Code Status? DNR [email or web address] Information not available 01/01/2024 Do You Have A Medical Power Of Tool Maintenance Technician? Yes Katelyn Bird Information not available 01/01/2024 What Was The [...] Condition Response Psychiatric -- Anxiety Disorder Y Macular Degeneration Y Atrial Fibrillation Y Incontinence -- Urinary Y Cancer -- Colon / Rectum Y Chronic Kidney Disease (CKD) Y Lymphedema Y Sleep Apnea / CARLY Y Ulcer -- Venous Stasis Y Transient ischemic attack (TIA) Y Anemia Y Diabetes Y Deep Vein Thrombosis (DVT) Y Congestive Heart Failure (CHF) Y GERD / Reflux Y Neuropathy Y Hypertension Y Gynecological HistoryNo gynecological history recorded. Obstetrics History GPAL:G 0 P 0 0 0 0 Past Encounters Encounter ID Performer Location Encounter Start Date Encounter Closed Date Diagnosis/Indication Diagnosis SNOMED-CT Code Diagnosis ICD10 Code Diagnosis Note [id number] Concepcion Faust NP [place] [address] [place] [address] 01/03/2024 13:52:44 01/14/2024 11:55:25 Closed fracture of triquetral bone of right wrist [id number] 5819928 S62.114D Specific injury unclear, imaging noted questiona [...] Pain in fi nger of left hand 6787980021 93006 M79.645 Again, no specific injury but she is noted to have reduced ROM, tenderness , and pain to her left ring finger. No heat/warmt h.Obtain Xray [L] hand (dx 4th finger edema, pain).Add PRN APAP per standing orders. 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 Continue Metoprolol , Lasix, & KCl.Contin ue to trend blood pressures, monitor lytes and renal function, and adjust meds as clinically indicated. Chronic ki dney disease stage 3 519702009 N18.30 Per history. Baseline Cr unclear.Tr end labs and avoid additional nephrotoxi ns. 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 Has been discharged on usual OP regimen of Lasix 40 mg BID.Appear s euvolemic at present. Continue Lasix & KCl.Contin ue to trend blood pressures, monitor lytes and renal function, and weights and adjust meds as clinically indicated. Acute urin kaitlyn tract infection 516110547 N39.0 12/19 Urine cx grew K. pneumonia, tripp-sensit yuri. She was treated with 3 days of IV antibiotic s and discharged on 2 days of Augmentin. Symptoms have resolved. Monitor for recurrence . Retention of urine 30053 4002 R33.9 Pt was noted to have [...] Atrial fib rillation with rapid ventricular response 0203983435 43453 I48.91 Stable at present with periodic HRs in low 100s. Continue Metoprolol , dose increased while inpatient. Fax HR & BPs weekly to Dr. Monteiro for adjustment in cardiac medication s.Cards SUPERVISOR [employer]AF[employer] DEPOSIT Noreen Herring (with Dr. Monteiro). Hyperkalemia 34528341 E8 7.5 Daughter Katelyn notes she runs chronicall y on the high end of normal and that Dr. Monteiro monitors this.Marla nue supplement and trend level closely. Type 2 andrew betes mellitus 67792528 E11.69 Per daughter Katelyn, well-contr olled on current regimen.Co ntinue Toujeo 10 units daily and insulin lispro 3 units TID with meals with additional SSI. No insulin is given if BS is <100.Monit or blood sugars and continue LCS diet. Obstructiv e sleep apnea syndrome 46990099 G47.33 Noncomplia nt with CPAP. Instead utilizes 2L NC ad noc. Sleep rela andrea hypoxemia 8287277967 14961 G47.36 SEE ABOVE... Not for resuscitation 30 6902596 Z66 DNR. Confirmed today. Physical deconditioning 8941060589 9102 R68.89 Related to age, recent inpatient stay, and multiple comorbidit ies.Contin ue PT/OT and monitor progress. Goal is for pt to return ILF at [facility].Ad ding PRN APAP for pain.Marla nue Eliquis for DVT prophylaxi s.Catharti cs available per standing orders for constipati on. Gastroesop hageal reflux disease without esophagitis 118341105 K21.9 Stable. Continue Protonix. Hypomagnesemia 203878393 E83.42 Presumed stable. Continue supplement and trend level. Allergic rhinitis 827760 04 J30.9 Stable. Continue Loratadine for now -- consider trialling changing to PRN. At [facility] ed risk of polypharmacy 742918675 Z91.89 Need to confirm dx warranting use of Cholestyra mine. [id number] Shonda Reaves, [facility] [address] [place] [address] 01/04/2024 18:35:19 01/14/2024 11:56:16 Closed fracture of triquetral bone of right wrist 3564466132 5308986 S62.114D Specific injury unclear, imaging noted questiona ble small acute fracture of dorsal triquetrum on lateral view. She has been placed in splint.Per ortho (Dr. Shaikh) WBATContin ue therapies. Continue PRN APAP per standing orders. Pain in fi nger of left hand 5768220399 40036 M79.645 Again, no specific injury but she is noted to have reduced ROM, tenderness , and pain to her left ring finger. No heat/warmt h.Xray [L] hand was done yesterday without acute fracture notedPRN APAP per standing orders. Atrial fib rillation with rapid ventricular response 3315316145 99476 I48.91 Stable at present with periodic HRs in low 100s. Continue Metoprolol , dose increased while inpatient. Fax HR & BPs weekly to Dr. Monteiro for adjustment in cardiac medication s.Cards SUPER[employer] DE[employer]IT Noreen Herring (with Dr. Monteiro). 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 Has been discharged on usual OP regimen of Lasix 40 mg BID.Contin ue Lasix & KCl.Contin ue to trend blood pressures, monitor lytes and renal function, and weights and adjust meds as clinically indicated. Acute urin kaitlyn tract infection 471309670 N39.0 12/19 Urine cx grew K. pneumonia, tripp-sensit yuri. She was treated with 3 days of IV antibiotic s and discharged on 2 days of Augmentin. Symptoms have resolved. Monitor for recurrence . 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 Continue Metoprolol , Lasix, & KCl.Contin ue to trend blood pressures, monitor lytes and renal function, and adjust meds as clinically indicated. Hyperkalemia 87051165 E8 7.5 Daughter Katelyn notes she runs chronicall y on the high end of normal and that Dr. Monteiro monitors this.01/02 K 5.8 - KCL dose has been adjusted by cardiology to 40 meq BIDf/u labs are ordered for am Chronic ki dney disease stage 3 947634720 N18.30 Per history. Baseline Cr unclear.Tr end labs and avoid additional nephrotoxi ns. Type 2 andrew betes mellitus 80441517 E11.69 Per daughter Katelyn, well-contr olled on current regimen.Co ntinue Toujeo 10 units daily and insulin lispro 3 units TID with meals with additional SSI. No insulin is given if BS is <100.Monit or blood sugars and continue LCS diet. Hypomagnesemia 480760725 E83.42 Presumed stable. Continue supplement and trend level. Gastroesop hageal reflux disease without esophagitis 115909988 K21.9 Stable. Continue Protonix. Obstructiv e sleep apnea syndrome 20597627 G47.33 Noncomplia nt with CPAP. Instead utilizes 2L NC at nighttime Sleep rela andrea hypoxemia 1049350613 10917 G47.36 SEE ABOVE... Allergic rhinitis 987339 04 J30.9 Stable. Continue Loratadine for now -- consider trialling changing to PRN. Retention of urine 95061 4002 R33.9 Pt was noted to have [...] pt.F/U with Dr. Duy Bonner PRN. At [facility] ed risk of polypharmacy 422759418 Z91.89 unclear dx warranting use of Cholestyra mine as no history of documented hyperlipid emia but reported as home medication Physical deconditioning 2722379513 9102 R68.89 Related to age, recent inpatient stay, and multiple comorbidit ies.Contin ue PT/OT and monitor progress. Goal is for pt to return ILF at [facility].ND N APAP for pain.Marla nue Eliquis for DVT prophylaxi s.Catharti cs available per standing orders for constipati on. Shonda Reaves, DO [facility] [address] [place] [address] 01/09/2024 22:59:22 01/14/2024 11:57:17 Closed fracture of triquetral bone of right wrist 5980279369 6801959 S62.114D Specific injury unclear, imaging noted questiona ble small acute fracture of dorsal triquetrum on lateral view. She has been placed in splint.Per ortho (Dr. Shaikh) WBATContin ue therapies. Continue PRN APAP per standing orders. Pain in fi nger of left hand 5553725494 95803 M79.645 Again, no specific injury but she is noted to have reduced ROM, tenderness , and pain to her left ring finger. No heat/warmt h.Xray [L] hand was done yesterday without acute fracture notedPRN APAP per standing orders. Atrial fib rillation with rapid ventricular response 9688629157 23941 I48.91 Stable at present with periodic HRs in low 100s. Continue Metoprolol , dose increased while inpatient. Fax HR & BPs weekly to Dr. Monteiro for adjustment in cardiac medication s.Cards SUPERVISOR [employer]AF[employer] DEPOSIT Noreen Herring (with Dr. Monteiro). 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 Has been discharged on usual OP regimen of Lasix 40 mg BID.Contin ue Lasix & KCl.the patient takes metolazone 5 mg daily prn as an outpatient which has been resumed as of 01/07Conti nue to trend blood pressures, monitor lytes, renal function and weights - will await recommenda tions from [employer] for further medication adjustment s at this time Acute urin kaitlyn tract infection 453689941 N39.0 12/19 Urine cx grew K. pneumonia, tripp-sensit yuri. She was treated with 3 days of IV antibiotic s and discharged on 2 days of Augmentin. Symptoms have resolved. 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 Continue Metoprolol , Lasix, & KCl.Contin ue to trend blood pressures, monitor lytes and renal function, and adjust meds as clinically indicated. Hyperkalemia 99634283 E8 7.5 Daughter Katelyn notes she runs chronicall y on the high end of normal and that Dr. Monteiro monitors this.01/02 K 5.8 - KCL dose has been adjusted by cardiology to 40 meq BIDf/u potassum levels WNL Chronic ki dney disease stage 3 888671619 N18.30 Per history. Baseline Cr unclear.Tr end labs and avoid additional nephrotoxi ns. Type 2 andrew betes mellitus 14925558 E11.69 Per daughter Katelyn, well-contr olled on current regimen.Co ntinue Toujeo 10 units daily and insulin lispro 3 units TID with meals with additional SSI. No insulin is given if BS is <100.Monit or blood sugars and continue LCS diet. Hypomagnesemia 519399884 E83.42 Presumed stable. Continue supplement and trend level. Gastroesop hageal reflux disease without esophagitis 507090962 K21.9 Stable. Continue Protonix. Obstructiv e sleep apnea syndrome 54557058 G47.33 Noncomplia nt with CPAP. Instead utilizes 2L NC at nighttime Sleep rela andrea hypoxemia 5387144341 79376 G47.36 SEE ABOVE... Allergic rhinitis 754954 04 J30.9 Stable. Continue Loratadine for now -- consider trialling changing to PRN. Retention of urine 51501 4002 R33.9 Pt was noted to have [...] pt.F/U with Dr. Duy Bonner PRN. At [facility] ed risk of polypharmacy 030416454 Z91.89 unclear dx warranting use of Cholestyra mine as no history of documented hyperlipid emia but reported as home medication Physical deconditioning 4027421107 9102 R68.89 Related to age, recent inpatient stay, and multiple comorbidit ies.Contin ue PT/OT and monitor progress. Goal is for pt to return ILF at [facility].ND N APAP for pain.Marla nue Eliquis for DVT prophylaxi s.Catharti cs available per standing orders for constipati on. Multiple o pen wounds of lower leg 971699221 S81.802A new ruptured bullae noted to the LLE likely related to edemamonit or closely for secondary infectionh ave ordered daily cleanse and foam dressingco ntinue compressio n wraps/leg elevation/ diuretics [id number] Concepcion Faust NP [facility] [address] [place] [address] 01/12/2024 13:17:28 01/18/2024 00:38:06 Closed fracture of triquetral bone of right wrist 6715946244 3741415 S62.114D Specific injury unclear, imaging noted questiona ble small acute fracture of dorsal triquetrum on lateral view. She has been placed in splint.Per ortho (Dr. Shaikh) WBAT.Marla nue therapies. Continue PRN APAP per standing orders.F/U with Dr. Shaikh as directed. Pain in fi nger of left hand 9728775609 84690 M79.645 Again, no specific injury but she was noted to have reduced ROM, tenderness , and pain to her left ring finger. No heat/warmt h. Xray [L] hand was without acute fracture.S ymptoms have nearly resolved at this point, although remains with mild amount of edema to PIP region.PRN APAP per standing orders. Atrial fib rillation with rapid ventricular response 0024808470 91685 I48.91 Stable at present with periodic HRs in low 100s. Continue Metoprolol , dose increased while inpatient. Fax HR & BPs weekly to Dr. Monteiro for adjustment in cardiac medication s.Cards SUPERVISOR SAF[employer] DEPOSIT Noreen Herring (with Dr. Monteiro). 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 Has been [...] this time Acute urin kaitlyn tract infection 143941574 N39.0 12/19 Urine cx grew K. pneumonia, tripp-sensit yuri. She was treated with 3 days of IV antibiotic s and discharged on 2 days of Augmentin. Symptoms have resolved. Monitor for recurrence .Discussed with patient avoidance of Ditropan going forward. 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 Continue Metoprolol , Lasix, & KCl.SEE ABOVE regarding PRN Metolazone .Continue to trend blood pressures, monitor lytes and renal function, and adjust meds as clinically indicated. Chronic ki dney disease stage 3 773240608 N18.30 Per history. Baseline Cr unclear.Tr end labs and avoid additional nephrotoxi ns. Type 2 andrew betes mellitus 90593971 E11.69 Per daughter Katelyn, well-contr olled on current regimen.Co ntinue Toujeo 10 units daily and insulin lispro 3 units TID with meals with additional SSI. No insulin is given if BS is <100.Monit or blood sugars and continue LCS diet. Hypomagnesemia 311742872 E83.42 LEvel low. Increasing supplement to BID and will continue to trend level. Gastroesop hageal reflux disease without esophagitis 260220637 K21.9 Stable. Continue Protonix. Obstructiv e sleep apnea syndrome 99646090 G47.33 Noncomplia nt with CPAP. Instead utilizes 2L NC at nighttime Sleep rela andrea hypoxemia 0179755238 19365 G47.36 SEE ABOVE... Allergic rhinitis 957450 04 J30.9 Stable. Continue Loratadine for now -- consider trialling changing to PRN. Retention of urine 65621 4002 R33.9 Pt was noted to have [...] U with Dr. Duy Bonner PRN. At [facility] risk of polypharmacy 940890928 Z91.89 Unclear dx warranting use of Cholestyra mine as no history of documented hyperlipid emia but reported as home medication . Multiple o pen wounds of lower leg 420846565 S81.802A Monitor closely for secondary infection. No concerns per nursing today.Cont inue compressio n wraps/leg elevation/ diuretics. Physical deconditioning 5338799554 9102 R68.89 Related to age, recent inpatient stay, and multiple comorbidit ies.Contin ue PT/OT and monitor progress. Goal is for pt to return ILF at [facility].ND N APAP for pain.Marla nue Eliquis for DVT prophylaxi s.Catharti cs available per standing orders for constipati on. Concepcion Faust NP [facility] [address] [place] [address] 01/13/2024 10:03:21 01/18/2024 00:39:53 Minimal cognitive impairment 153041644 R41.89 SEE ABOVE... Hallucinations 2113479 R 44.3 Long-term and recurrent. Pt notes [...] hronic combined systolic and diastolic heart failure 7602392146 28111 I50.43 s/p diuresis while inpatient. Has been [...] cture of triquetral bone of right wrist 2895390378 9474253 S62.114D Specific injury unclear, imaging noted questiona ble small acute fracture of dorsal triquetrum on lateral view. She has been placed in splint.Per ortho (Dr. Shaikh) WBAT.Marla nue therapies. Continue PRN APAP per standing orders.F/U with Dr. Shaikh as directed. Pain in fi nger of left hand 7391305117 69505 M79.645 Again, no specific injury but she was noted to have reduced ROM, tenderness , and pain to her left ring finger. No heat/warmt h. Xray [L] hand on 01/03 was without fracture.S ymptoms have nearly resolved at this point, although remains with mild amount of edema to PIP region.Con tinue PRN APAP per standing orders. Atrial fib rillation with rapid ventricular response 2353649284 76822 I48.91 Stable at present with periodic HRs in low 100s. Continue Metoprolol , dose increased while inpatient. Faxing weights, HR, & BPs weekly to Dr. Monteiro.Car ds SUPERVISOR [employer]IT Noreen Herring (with Dr. Monteiro). Acute urin kaitlyn tract infection 351990114 N39.0 12/19 Urine cx grew K. pneumonia, tripp-sensit yuri. She was treated with 3 days of IV antibiotic s and discharged on 2 days of Augmentin. Symptoms have resolved. Monitor for recurrence .Discussed with patient avoidance of Ditropan going forward. 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 Continue Metoprolol , Lasix, & KCl.SEE ABOVE regarding PRN Metolazone .Continue to trend blood pressures, monitor lytes and renal function, and adjust meds as clinically indicated. Chronic ki dney disease stage 3 288160903 N18.30 Per history. Baseline Cr unclear.Tr end labs and avoid additional nephrotoxi ns. Type 2 andrew betes mellitus 40436143 E11.69 Per daughter Katelyn, well-contr olled on current regimen.Co ntinue Toujeo 10 units daily and insulin lispro 3 units TID with meals with additional SSI. No insulin is given if BS is <100.Monit or blood sugars and continue LCS diet. Hypomagnesemia 725487880 E83.42 Level low. Increasing supplement to BID and will continue to trend level. Gastroesop hageal reflux disease without esophagitis 178804856 K21.9 Stable. Continue Protonix. Obstructiv e sleep apnea syndrome 35850233 G47.33 Noncomplia nt with CPAP. Instead utilizes 2L NC at nighttime Sleep rela andrea hypoxemia 4813527610 89539 G47.36 SEE ABOVE... Allergic rhinitis 588388 04 J30.9 Stable. Continue Loratadine for now -- consider trialling changing to PRN. Retention of urine 53666 4002 R33.9 Pt was noted to have [...] U with Dr. Duy Bonner PRN. At [facility] ed risk of polypharmacy 460711986 Z91.89 Unclear dx warranting use of Cholestyra mine as no history of documented hyperlipid emia but reported as home medication . Physical deconditioning 8405548623 9102 R68.89 Related to age, recent inpatient stay, and multiple comorbidit ies.Contin ue PT/OT and monitor progress. Goal is for pt to return ILF at [facility].Co ntinue PRN APAP for pain.Marla nue Eliquis for DVT prophylaxi s.Catharti cs available per standing orders for constipati on. Stasis teja matitis and venous ulcer of lower extremity due to chronic peripheral venous hypertension 2001845664 11899 L97.909 SEE ABOVE...Co ntinue foam dressings daily [...] send labs/weigh ts/vitals to cardiology Dr. Monteiro. [id number] Concepcion Faust, FILOMENA [address] [address] 01/17/2024 09:23:58 01/19/2024 11:30:42 Acute on chronic combined systolic and diastolic heart failure 0669343601 25858 I50.43 s/p diuresis while inpatient. Has been [...] extremity due to chronic peripheral venous hypertension 1992388504 57145 L97.909 SEE ABOVE...Co ntinue foam dressings daily to left cooper. Left skin lesion was formerly a blister. Wound bed is healthy without concerns for infection. Continue compressio n and elevation as above.Celine ting for cellulitis with Keflex x 7 days (01/21).La bs are pending from this AM.Nursing to continue to send labs/weigh ts/vitals to cardiology Dr. Monteiro. Hallucinations 1457329 R 44.3 Long-term and recurrent. Pt notes [...] should symptoms arise. Minimal co gnitive impairment 242938506 R41.89 SEE ABOVE... Closed fra cture of triquetral bone of right wrist 2240268406 0011210 S62.114D Specific injury unclear, imaging noted questiona ble small acute fracture of dorsal triquetrum on lateral view. She has been placed in splint.Per ortho (Dr. Shaikh) WBAT.Marla nue therapies. Continue PRN APAP per standing orders.F/U with Dr. Shaikh as directed. Pain in fi nger of left hand 9924040106 34150 M79.645 Again, no specific injury but she was noted to have reduced ROM, tenderness , and pain to her left ring finger. No heat/warmt h. Xray [L] hand on 01/03 was without fracture.S ymptoms have resolved at this point.Cont inue PRN APAP per standing orders. Atrial fib rillation with rapid ventricular response 2080544836 55028 I48.91 Stable at present with periodic HRs in low 100s. Continue Metoprolol , dose increased while inpatient. Faxing weights, HR, & BPs weekly to Dr. Monteiro.Car ds [employer] Noreen Herring (with Dr. Monteiro). Acute urin kaitlyn tract infection 296617211 N39.0 12/19 Urine cx grew K. pneumonia, tripp-sensit yuri. She was treated with 3 days of IV antibiotic s and discharged on 2 days of Augmentin. Symptoms have resolved. Monitor for recurrence .Discussed with patient avoidance of Ditropan going forward. 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 Continue Metoprolol , Lasix, KCl, and PRN Metolazone & KCl.SEE ABOVE.Cont inue to trend blood pressures, monitor lytes and renal function, and adjust meds as clinically indicated. Chronic ki dney disease stage 3 020837079 N18.30 Per history. Baseline Cr unclear.Tr end labs and avoid additional nephrotoxi ns. Type 2 andrew betes mellitus 52647549 E11.69 Per daughter Katelyn, well-contr olled on current regimen.Co ntinue Toujeo 10 units daily and insulin lispro 3 units TID with meals with additional SSI. No insulin is given if BS is <100.Monit or blood sugars and continue LCS diet. Hypomagnesemia 035296868 E83.42 Level low. Increased supplement to TID and will continue to trend level. Gastroesop hageal reflux disease without esophagitis 097314920 K21.9 Stable. Continue Protonix. Obstructiv e sleep apnea syndrome 84144671 G47.33 Noncomplia nt with CPAP. Instead utilizes 2L NC at nighttime. Sleep rela andrea hypoxemia 4052197118 13094 G47.36 SEE ABOVE... Allergic rhinitis 128712 04 J30.9 Stable. Continue Loratadine for now -- consider trialling changing to PRN. Retention of urine 77402 4002 R33.9 Pt was noted to have [...] U with Dr. Duy Bonner PRN. At [facility] ed risk of polypharmacy 341773770 Z91.89 Unclear dx warranting use of Cholestyra mine as no history of documented hyperlipid emia but reported as home medication . Physical deconditioning 3956286298 9102 R68.89 Related to age, recent inpatient stay, and multiple comorbidit ies.Contin ue PT/OT and monitor progress. Goal is for pt to return ILF at [facility].Co ntinue PRN APAP for pain.Marla nue Eliquis for DVT prophylaxi s.Catharti cs available per standing orders for constipati on. [id number] Concepcion Faust NP [facility] [address] [place] [address] 01/20/2024 09:10:43 01/24/2024 16:38:34 Acute on chronic combined systolic and diastolic heart failure 1465200397 70522 I50.43 s/p diuresis while inpatient. Has been [...] extremity due to chronic peripheral venous hypertension 7949154345 26966 L97.909 SEE ABOVE...Co ntinue foam dressings daily to left cooper. Left skin lesion was formerly a blister.Co ntinue compressio n and elevation as above.Celine ting for cellulitis with Keflex x 7 days (01/21).Co ntinue to trend labs.Nursi ng to continue to send labs/weigh ts/vitals to cardiology Dr. Monteiro. Hallucinations 9245790 R 44.3 Long-term and recurrent. Pt notes [...] should symptoms arise. Minimal co gnitive impairment 156519609 R41.89 SEE ABOVE... Closed fra cture of triquetral bone of right wrist 5960074255 7113982 S62.114D Specific injury unclear, imaging noted questiona ble small acute fracture of dorsal triquetrum on lateral view. She has been placed in splint.Per ortho (Dr. Shaikh) WBAT.Marla nue therapies. Continue PRN APAP per standing orders.F/U with Dr. Shaikh as directed. Atrial fib rillation with rapid ventricular response 3099885153 92367 I48.91 Stable at present with periodic HRs in low 100s. Continue Metoprolol , dose increased while inpatient and again at F/U appt with Dr. Monteiro on 01/17.Faxi ng weights, HR, & BPs weekly to Dr. Monteiro.Car ds [employer] Noreen Herring (with Dr. Monteiro). Acute urin kaitlyn tract infection 876728490 N39.0 12/19 Urine cx grew K. pneumonia, tripp-sensit yuri. She was treated with 3 days of IV antibiotic s and discharged on 2 days of Augmentin. Symptoms have resolved. Monitor for recurrence .Discussed with patient avoidance of Ditropan going forward. 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 Continue Metoprolol (increased ), Lasix, Metolazone , and KCl.SEE ABOVE.Cont inue to trend blood pressures, monitor lytes and renal function, and adjust meds as clinically indicated. Chronic ki dney disease stage 3 605491968 N18.30 Per history. Baseline Cr unclear.Tr end labs and avoid additional nephrotoxi ns. Type 2 andrew betes mellitus 22937902 E11.69 Per daughter Katelyn, well-contr olled on current regimen.Co ntinue Toujeo 10 units daily and insulin lispro 3 units TID with meals with additional SSI. No insulin is given if BS is <100.Monit or blood sugars and continue LCS diet. Hypomagnesemia 525885467 E83.42 Level low despite increase in supplement ation. Increase to 800 mg BID and repeat level on Wednesday. Gastroesop hageal reflux disease without esophagitis 373454865 K21.9 Stable. Continue Protonix. Obstructiv e sleep apnea syndrome 02704021 G47.33 Noncomplia nt with CPAP. Instead utilizes 2L NC at nighttime. Sleep rela andrea hypoxemia 4789450692 58929 G47.36 SEE ABOVE... Allergic rhinitis 354379 04 J30.9 Stable. Change Loratadine to PRN. Retention of urine 85441 4002 R33.9 Pt was noted to have [...] Pain in fi nger of left hand 6139756945 46965 M79.645 Again, no specific injury but she was noted to have reduced ROM, tenderness , and pain to her left ring finger. No heat/warmt h. Xray [L] hand on 01/03 was without fracture.S ymptoms have resolved at this point.Cont inue PRN APAP per standing orders. At [facility] ed risk of polypharmacy 640507123 Z91.89 Unclear dx warranting use of Cholestyra mine as no history of documented hyperlipid emia but reported as home medication . Physical deconditioning 5873744858 9102 R68.89 Related to age, recent inpatient stay, and multiple comorbidit ies.Contin ue PT/OT and monitor progress. Goal is for pt to return ILF at [facility].Co ntinue PRN APAP for pain.Marla nue Eliquis for DVT prophylaxi s.Catharti cs available per standing orders for constipati on. [id number] Concepcion Faust NP [facility] [address] [place] [address] 01/21/2024 09:11:22 01/27/2024 08:37:15 Acute on chronic combined systolic and diastolic heart failure 6909600968 23604 I50.43 s/p diuresis while inpatient. Has been [...] extremity due to chronic peripheral venous hypertension 7282243461 99839 L97.909 SEE ABOVE...Co ntinue foam dressings daily to left cooper. Left skin lesion was formerly a blister.Co ntinue compressio n and elevation as above.Celine ting for cellulitis with Keflex, extending to a 10-day course (01/24).Co ntinue to trend labs.Nursi ng to continue to send labs/weigh ts/vitals to cardiology Dr. Monteiro. Hallucinations 3682529 R 44.3 Long-term and recurrent. Pt notes [...] should symptoms arise. Minimal co gnitive impairment 555008119 R41.89 SEE ABOVE... Closed fra cture of triquetral bone of right wrist 4427279781 5885202 S62.114D Specific injury unclear, imaging noted questiona ble small acute fracture of dorsal triquetrum on lateral view. She has been placed in splint.Per ortho (Dr. Shaikh) WBAT.Marla nue therapies. Continue PRN APAP per standing orders.F/U with Dr. Shaikh as directed. Atrial fib rillation with rapid ventricular response 0796075681 78017 I48.91 Stable at present with periodic HRs in low 100s. Continue Metoprolol , dose increased while inpatient and again at F/U appt with Dr. Monteiro on 01/17.Faxi ng weights, HR, & BPs weekly to Dr. Monteiro.Car [employer] Noreen Herring (with Dr. Monteiro). Acute urin kaitlyn tract infection 304572010 N39.0 12/19 Urine cx grew K. pneumonia, tripp-sensit yuri. She was treated with 3 days of IV antibiotic s and discharged on 2 days of Augmentin. Symptoms have resolved. Monitor for recurrence .Discussed with patient avoidance of Ditropan going forward. Hypertensi ve heart and renal disease with (congestive) heart failure 525690542 I13.0 Stable. Continue Metoprolol (increased ), Lasix, Metolazone , and KCl.SEE ABOVE.Cont inue to trend blood pressures, monitor lytes and renal function, and adjust meds as clinically indicated. Chronic ki dney disease stage 3 320347600 N18.30 Per history. Baseline Cr unclear.Tr end labs and avoid additional nephrotoxi ns. Type 2 andrew betes mellitus 41127667 E11.69 Per daughter Katelyn, well-contr olled on current regimen.Co ntinue Toujeo 10 units daily and insulin lispro 3 units TID with meals with additional SSI. No insulin is given if BS is <100.Monit or blood sugars and continue LCS diet. Hypomagnesemia 747330211 E83.42 Level low despite increase in supplement ation. Increase to 800 mg BID and repeat level on Wednesday. Gastroesop hageal reflux disease without esophagitis 584834043 K21.9 Stable. Continue Protonix. Obstructiv e sleep apnea syndrome 18806855 G47.33 Noncomplia nt with CPAP. Instead utilizes 2L NC at nighttime. Sleep rela andrea hypoxemia 8213701143 42897 G47.36 SEE ABOVE... Allergic rhinitis 564906 04 J30.9 Stable. Change Loratadine to PRN. Retention of urine 62236 4002 R33.9 Pt was noted to have [...] Pain in fi nger of left hand 1189489451 04697 M79.645 Again, no specific injury but she was noted to have reduced ROM, tenderness , and pain to her left ring finger. No heat/warmt h. Xray [L] hand on 01/03 was without fracture.S ymptoms have resolved at this point.Cont inue PRN APAP per standing orders. At [facility] ed risk of polypharmacy 379825320 Z91.89 Unclear dx warranting use of Cholestyra mine as no history of documented hyperlipid emia but reported as home medication . Physical deconditioning 0107833981 9102 R68.89 Related to age, recent inpatient stay, and multiple comorbidit ies.Contin ue PT/OT and monitor progress. Goal is for pt to return ILF at [facility].Co ntinue PRN APAP for pain.Marla nue Eliquis for DVT prophylaxi s.Catharti cs available per standing orders for constipati on. [id number] Concepicon Faust NP [facility] [address] [place] [address] 01/24/2024 10:20:14 01/31/2024 12:50:49 Acute on chronic combined systolic and diastolic heart failure 1238850945 98724 I50.43 s/p diuresis while inpatient. Has been [...] extremity due to chronic peripheral venous hypertension 2284171277 36617 L97.909 SEE ABOVE...Le ft cooper lesion was formerly a blister. Continue foam dressings daily to left cooper. Improving. Continue compressio n and elevation as above.Celine ting for cellulitis with 10-days of Keflex through 01/24. Much improved today. Hallucinations 1893400 R 44.3 Long-term and recurrent. Pt notes [...] for reversible causes. Minimal co gnitive impairment 364405245 R41.89 SEE ABOVE... Closed fra cture of triquetral bone of right wrist 3020085863 6202512 S62.114D Specific injury unclear, imaging noted questiona ble small acute fracture of dorsal triquetrum on lateral view. She has been placed in splint.Per ortho (Dr. Shaikh) WBAT.Marla nue therapies. Continue PRN APAP per standing orders.F/U with Dr. Shaikh as directed. Atrial fib rillation with rapid ventricular response 8452619799 33695 I48.91 Stable at present with periodic HRs in low 100s. Continue Metoprolol , dose increased while inpatient and again at F/U appt with Dr. Monteiro on 01/17.F/U with Cards [employer] Noreen Herring (with Dr. Monteiro) as directed. Acute urin kaitlyn tract infection 576318936 N39.0 12/19 Urine cx grew K. pneumonia, tripp-sensit yuri. She was treated with 3 days of IV antibiotic s and discharged on 2 days of Augmentin. Symptoms have resolved. Monitor for recurrence .Discussed with patient avoidance of Ditropan going forward. Hypertensi ve heart and renal disease with (congestive) heart failure 074880100 I13.0 Stable. Continue Metoprolol (increased ), Lasix, Metolazone , and KCl.SEE ABOVE.Cont inue to trend blood pressures, monitor lytes and renal function, and adjust meds as clinically indicated. Chronic ki dney disease stage 3 823472159 N18.30 Per history. Baseline Cr unclear.Tr end labs and avoid additional nephrotoxi ns. Type 2 andrew betes mellitus 51988082 E11.69 Per daughter Katelyn, well-contr olled on current regimen.Co ntinue Toujeo 10 units daily and insulin lispro 3 units TID with meals with additional SSI. No insulin is given if BS is <100.Monit or blood sugars and continue LCS diet. Hypomagnesemia 070383968 E83.42 Level low despite increase in supplement ation. Increase to 800 mg BID and repeat level finally WNL. Continue to trend as OP. Gastroesop hageal reflux disease without esophagitis 967569890 K21.9 Stable. Continue Protonix. Obstructiv e sleep apnea syndrome 83076373 G47.33 Noncomplia nt with CPAP. Instead utilizes 2L NC at nighttime. Sleep rela andrea hypoxemia 1618873253 27451 G47.36 SEE ABOVE... Allergic rhinitis 111841 04 J30.9 Stable. Changed Loratadine to PRN. Retention of urine 24859 4002 R33.9 Pt was noted to have [...] Pain in fi nger of left hand 0939075376 64099 M79.645 Again, no specific injury but she was noted to have reduced ROM, tenderness , and pain to her left ring finger. No heat/warmt h. Xray [L] hand on 01/03 was without fracture.S ymptoms have resolved at this point.Cont inue PRN APAP per standing orders. At [facility] risk of polypharmacy 109977717 Z91.89 Unclear dx warranting use of Cholestyra mine as no history of documented hyperlipid emia but reported as home medication . [id number] Concepcion Faust, FIL[place] [address] [place] [address] 02/25/2024 09:01:54 02/26/2024 11:49:53 Acute on chronic combined systolic and diastolic heart failure 0361089548 87690 I50.43 Continues on OP dose of Lasix [...] extremity due to chronic peripheral venous hypertension 0543754268 92272 L97.909 SEE ABOVE...Pt has multiple venous ulcers sec to ruptured blisters to BLE. Continue local wound care and SWM to eval & treat. Hallucinations 5447584 R 44.3 Long-term and recurrent. Pt notes typically occurs at night and she believes are secondary to sleep medication s. As such, she does not want to take any for her insomnia. She notes the only medication that did not cause hallucinat ions was Melatonin, but that this medication was ineffectiv e.ST will follow once again. Minimal co gnitive impairment 893194881 R41.89 SEE ABOVE... Closed fra cture of triquetral bone of right wrist 8463901213 8090374 S62.114D Specific injury unclear, imaging noted questiona ble small acute fracture of dorsal triquetrum on lateral view. She has been placed in splint.Per ortho (Dr. Shaikh) WBAT.Marla nue therapies. Continue PRN APAP for pain.She will f/u with Dr. Shaikh today and hopes she will be released from wearing splint. Atrial fib rillation with rapid ventricular response 3085671805 44626 I48.91 Stable at present. Continue Metoprolol .Continue Eliquis for VTE ppx.F/U with Dr. Monteiro) as directed. Acute urin kaitlyn tract infection 533663572 N39.0 12/19 Urine cx grew K. pneumonia, tripp-sensit yuri. She was treated with 3 days of IV antibiotic s and discharged on 2 days of Augmentin. Symptoms have resolved. Monitor for recurrence .Discussed with patient avoidance of Ditropan going forward. Hypertensi ve heart and renal disease with (congestive) heart failure 605068376 I13.0 Continue Metoprolol , Lasix, Metolazone , and KCl.SEE ABOVE.Cont inue to trend blood pressures, monitor lytes and renal function, and adjust meds as clinically indicated. Chronic ki dney disease stage 3 282699547 N18.30 Per history. Baseline Cr unclear.Tr end labs and avoid additional nephrotoxi ns. Type 2 andrew betes mellitus 77178136 E11.69 Per daughter Katelyn, well-contr olled on current regimen.Co ntinue Toujeo 10 units daily and insulin lispro 3 units TID with meals with additional SSI. No insulin is given if BS is <100.Monit or blood sugars and continue LCS diet. Hypomagnesemia 551900206 E83.42 Stable. Continue supplement and trend level. Gastroesop hageal reflux disease without esophagitis 898650810 K21.9 Stable. Continue Protonix. Obstructiv e sleep apnea syndrome 88688532 G47.33 Noncomplia nt with CPAP. Instead utilizes 2L NC at nighttime. Sleep rela andrea hypoxemia 5393104694 35375 G47.36 SEE ABOVE... Allergic rhinitis 628122 04 J30.9 Stable. Changed Loratadine to PRN last visit and she tolerated. Now back to routine. Consider changing to PRN once again. Retention of urine 71192 4002 R33.9 Pt was noted to have [...] U with Dr. Duy Bonner PRN. At [facility] ed risk of polypharmacy 551801154 Z91.89 Unclear dx warranting use of Cholestyra mine as no history of documented hyperlipid emia but reported as home medication . Not for resuscitation 30 3150153 Z66 DNR. Confirmed today. 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 Continue foam dressing and monitor. Offload pressure. [id number] Shonda Reaves, [facility] [address] [place] [address] 02/27/2024 08:58:41 02/27/2024 21:33:30 Acute on chronic combined systolic and diastolic heart failure 3962115475 71181 I50.43 Continues on OP dose of Lasix [...] extremity due to chronic peripheral venous hypertension 3482735233 08760 L97.909 SEE ABOVE...Pt has multiple venous ulcers sec to ruptured blisters to BLE. Continue local wound care and SWM to eval & treat. Hallucinations 6958132 R 44.3 Long-term and recurrent. Pt notes typically occurs at night and she believes are secondary to sleep medication s. As such, she does not want to take any for her insomnia. She notes the only medication that did not cause hallucinat ions was Melatonin, but that this medication was ineffectiv e.ST will follow once again Minimal co gnitive impairment 075499183 R41.89 SEE ABOVE...in creased confusion noted this am - unclear if this is related to poor sleep hygiene, hypoglycem ia or something else. long discussion with daughter today with offer to get stat labs. She is agreeable to close observatio n for now with plans for labs in am and adjustment in insulin regimen Closed fra cture of triquetral bone of right wrist 1969842490 4074108 S62.114D Specific injury unclear, imaging noted questiona ble small acute fracture of dorsal triquetrum on lateral view. She has been placed in splint.Per ortho (Dr. Shaikh) WBAT.Marla nue therapies. Continue PRN APAP for pain and wrist splinting Atrial fib rillation with rapid ventricular response 3287516534 72519 I48.91 Stable at present. Continue Metoprolol .Continue Eliquis for VTE ppx.F/U with Dr. Monteiro Acute urin kaitlyn tract infection 902220528 N39.0 12/19 Urine cx grew K. pneumonia, tripp-sensit yuri. She was treated with 3 days of IV antibiotic s and discharged on 2 days of Augmentin. Symptoms have resolved. Monitor for recurrence .Discussed with patient avoidance of Ditropan going forward. Hypertensi ve heart and renal disease with (congestive) heart failure 077992614 I13.0 Continue Metoprolol , Lasix, Metolazone , and KCl.SEE ABOVE.Cont inue to trend blood pressures, monitor lytes and renal function, and adjust meds as clinically indicated. Chronic ki dney disease stage 3 514422334 N18.30 Per history. Baseline Cr unclear.Tr end labs and avoid additional nephrotoxi ns. Type 2 andrew betes mellitus 34276685 E11.69 Per daughter Katelyn, well-contr olled on current regimen.Co ntinue Toujeo 10 units daily and insulin lispro 3 units TID with meals with additional SSI. No insulin is given if BS is <100.Monit or blood sugars and continue LCS diet. Hypomagnesemia 989012723 E83.42 Stable. Continue supplement and trend level. Gastroesop hageal reflux disease without esophagitis 076691959 K21.9 Stable. Continue Protonix. 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 Continue foam dressing and monitor. Offload pressure. Obstructiv e sleep apnea syndrome 62632673 G47.33 Noncomplia nt with CPAP. Instead utilizes 2L NC at nighttime. Sleep rela andrea hypoxemia 8701324813 89259 G47.36 SEE ABOVE... Allergic rhinitis 704429 04 J30.9 Stable. Changed Loratadine to PRN last visit and she tolerated. Now back to routine. Consider changing to PRN once again. Retention of urine 57250 4002 R33.9 Pt was noted to have [...] forwardF/U with Dr. Duy Bonner PRN. At [facility] ed risk of polypharmacy 961122380 Z91.89 Unclear dx warranting use of Cholestyra mine as no history of documented hyperlipid emia but reported as home medication . [id number] Concepcion Faust NP [place] [address] [place] [address] 02/28/2024 13:30:53 02/28/2024 16:55:52 Acute on chronic combined systolic and diastolic heart failure [id number] 64776 I50.43 Continues on OP dose of Lasix [...] extremity due to chronic peripheral venous hypertension [id number] 37153 L97.909 SEE ABOVE...Pt has multiple venous ulcers sec to ruptured blisters to BLE. Continue local wound care and SWM to eval & treat. Hallucinations [id number] R 44.3 Long-term and recurrent. Pt notes typically occurs at night and she believes are secondary to sleep medication s. As such, she does not want to take any for her insomnia. She notes the only medication that did not cause hallucinat ions was Melatonin, but that this medication was ineffectiv e.ST will follow once again. Minimal co gnitive impairment [id number] R41.89 SEE ABOVE... Closed fra cture of triquetral bone of right wrist [id number] S62.114D Specific injury unclear, imaging noted questiona ble small acute fracture of dorsal triquetrum on lateral view. She has been placed in splint.Per ortho (Dr. Shaikh) WBAT and can wear splint PRN.Contin ue therapies. Continue PRN APAP for pain.F/U with Dr. Shaikh PRN. Atrial fib rillation with rapid ventricular response [id number] 35502 I48.91 Stable at present. Continue Metoprolol .Continue Eliquis for VTE ppx.F/U with Dr. Monteiro. Acute urin kaitlyn tract infection [id number] N39.0 11 Urine cx grew K. pneumonia, tripp-sensit yuri. She was treated with 3 days of IV antibiotic s and discharged on 2 days of Augmentin. Symptoms have resolved. Monitor for recurrence .Discussed with patient avoidance of Ditropan going forward. 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 Chronic ki dney disease stage 3 [id number] N18.30 Per history. Baseline Cr unclear.Tr end labs and avoid additional nephrotoxi ns. Type 2 andrew betes mellitus 25165761 E11.69 Per daughter Katelyn, well-contr olled on current regimen.Co ntinue Toujeo 10 units daily and insulin lispro 3 units TID with meals with additional SSI with breakfast and lunch only. No insulin is given if BS is <130.Monit or blood sugars and continue LCS diet. Hypomagnesemia 034223826 E83.42 Stable. Continue supplement and trend level. Gastroesop hageal reflux disease without esophagitis 123019020 K21.9 Stable. Continue Protonix. 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 Continue foam dressing and monitor. Offload pressure. Obstructiv e sleep apnea syndrome 77738064 G47.33 Noncomplia nt with CPAP. Instead utilizes 2L NC at nighttime. Sleep rela andrea hypoxemia [id number] 69863 G47.36 SEE ABOVE... Allergic rhinitis 982366 04 J30.9 Stable. Changed Loratadine to PRN last visit and she tolerated. Now back to routine. Consider changing to PRN once again. Retention of urine 67787 4002 R33.9 Pt was noted to have [...] forwardF/U with Dr. Duy Bonner PRN. At [facility] risk of polypharmacy [id number] Z91.89 Unclear dx warranting use of Cholestyra mine as no history of documented hyperlipid emia but reported as home medication . Contact dermatitis 77424 004 L25.9 Add TMC cream BID to bilateral thighs. Health Concerns Section Related Observation LastModified by Organization Detai ls LastModified Time None Recorded Concern Status LastModified by Organization Details LastModified Time None Recorded Advance Directives Directive None Recorded Payers Encounter Date Sequence Insurance Name Policy Number Policy Acosta Covered Member ID Acosta Member ID Guarantor Name 01/21/2024 2 [employer] Radha L Benne [id number] Radha L Benne 01/21/2024 1 [place] Radha L Benne [id number] 2 Radha L Benne 01/24/2024 2 [employer] [place] Radha L Benne [id number] Radha L Benne 01/24/2024 1 [place] Radha L Benne [id number] 2 Radha L Benne 02/25/2024 2 [employer] [place] Radha L Benne [id number] Radha L Benne 02/25/2024 1 [place] Radha L Benne [id number] 2 Radha L Benne 02/27/2024 2 [employer] [place] Radha L Benne [id number] Radha L Benne 02/27/2024 1 [place] Radha L Benne [id number] 2 Radha L Benne 02/28/2024 2 [employer] [place] Radha L Benne [id number] Radha L Benne 02/28/2024 1 [place] Radha L Benne [id number] 2 Radha Salmeron Notes Date Note Type Note [...] believed she was WBAT, told verbally by [facility], but we do not have [...] a good historian. She has lived at [facility] for approximately 7 years and talks fondly [...] Monteiro's office, let a message with the [employer], and they note she will address at [...] sit/stand to Rollator SBA Concepcion Faust, FILOMENA [address] [facility], [place], [address], [facility] 01/21/2024 12:26:09 01/24/2024 text/html Radha present ed to [facility] on 12/20/23 with c/o [R] wrist pain. Radha lives in an [facility] apartment at [place]. Per pt's daughter Katelyn at bedside today, [...] was moved up, [facility], and she has been voiding without concerns [...] believed she was WBAT, told verbally by [facility], but we do not have [...] a good historian. She has lived at [facility] for approximately 7 years and talks fondly [...] Monteiro's office, let a message with the [employer], and they note she will address at [...] further. Pt will be discharging to her [facility] apartment at [place] on 01/25 with [facility]. Her daughter will be staying with her the first few days/nights. Concepcion Faust, [employer] [address] [place], [address], [place] - [facility] 01/25/2024 10:15:26 02/25/2024 text/html 88-year-old [...] from 12/26 to 01/26/24 following hospitalization at [facility] from 12/19 to 12/23/23 for [R] dorsal triquetrum fracture, CHF exacerbation, Afib with RVR, UTI, Urine Retention, Hyperkalemia, debility, and chronic medical conditions. She was initially discharged back to her ILF apartment at [place] but her care needs were too great for that setting, so she moved to our post-acute rehab on 12/27/23, was stabilized with adjustment in her diuretics by Dr. Monteiro (OP cards) and treatment of LE cellulitis with Cephalexin, and discharged back to her [facility] apartment on 01/26/24 with [facility]. It appears she was being managed by [...] that pt is likely more appropriate for PRISON setting as her BLE edema is not well-controlled largely due to improper compression. VSS. Staff is without concerns beyond aforementioned. She will f/u with ortho later today and hopes she will be able to stop wearing her [R] wrist splint. Concepcion Faust, FILOMENA [address] [facility], [place], [address], [place] - [facility] 02/26/2024 11:49:49 [...] 12/26 to 01/26/24 following a hospitalization at [facility] from 12/19 to 12/23/23 for [R] dorsal triquetrum fracture, CHF exacerbation, Afib with RVR, UTI, Urinary Retention, Hyperkalemia, debility, and chronic medical conditions. She was initially discharged back to her ILF apartment at [place] but her care needs were too great for that setting, so she moved to our post-acute rehab on 12/27/23, was stabilized with adjustment in her diuretics by Dr. Monteiro (OP cards) and treatment of LE cellulitis with Cephalexin, and discharged back to her ILF apartment on 01/26/24 with [facility]. Per her daughter, she was initially doing very well after her return to her apartment but slowly, edema and weeping began to worsen with a slow uptrend in her weight. The family was able to take her out to see her Lighter Captain, Dr. Monteiro, in the office and metolazone [...] work with therapy, and return to her MAF apartment once again. Consideration will need to be given that pt is likely more appropriate for PRISON setting as her BLE edema is not [...] and letting her mom return to her MAF apartment to pass. The family has placed the patient on the [place] waiting list as they do not feel that she will be able to return to independent living even if she does make some progress [place] [address] [place], [address], [facility] 02/27/2024 21:33:27 02/28/2024 text/html F/U [...] that pt is likely more appropriate for PRISON setting as her BLE edema is not [...] and letting her mom return to her [facility] apartment to pass. The family has placed [...] beyond concerns from daughter. Concepcion Faust, FILOME[place] [address] [facility], [place], [address], [facility] 02/28/2024 16:55:48 OBGyn Episode No OBEpisode recorded.
--- OUTSIDE RECORDS SUMMARY | 2024-03-05 13:27 | XMS_ITS | Referral Summary ---
Author Organization [facility] Address [address] [place] [address] Care Team Providers Care Lead Pl Sql Developer Name Role Phone Gabriel Jurado MD Primary Care Provider Gabriel Jurado MD Unavailable [phone] Encounters Date Type Department Care Team Description 03/02/2024 Telephone [facility] Cardiology [address] [place] [phone] Galo Monteiro MD 02/29/2024 Telephone [facility] Cardiology [address] [place] [address] [address] [place] [phone] Ene Tolentino NP Test Results 02/22/2024 Telephone [facility] Cardiology [address] [place] [address] [place] [address] [phone] Galo Monteiro MD 02/10/2024 3:30 PM IRONER SOCK Office Visit [facility] Cardiology [address] [place] [address] [address] [place] [address] [phone] Ene Tolentino NP Chronic atrial fibrillation (HCC) (Primary Dx); Edema, lower extremity; 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) 02/03/2024 Telephone [facility] Cardiology [address] [facility] [address] [place] [phone] Galo Monteiro MD Lab Results 01/20/2024 Orders Only [facility] Cardiology [address] [place] [address] [place] [phone] Noreen Herring, FILOMENA 01/18/2024 Telephone [place] [address] [place] [phone] Galo Monteiro MD Shortness of Breath; Weight Gain 01/18/2024 11:00 AM IRONER SOCK Office Visit [place] [address] [place] [phone] Ene Tolentino NP Chronic atrial fibrillation (HCC) (Primary Dx); 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); Edema, lower extremity; Hospital discharge follow-up; Chronic diastolic heart failure (HCC); Persistent atrial fibrillation (HCC) 01/17/2024 Telephone [place] [address] [place] [address] [phone] Galo Monteiro MD Leg Swelling; Med Management 01/03/2024 Telephone [place] [address] [place] [phone] Galo Monteiro MD 12/24/2023 Orders Only [place] [address] [place] [address] [phone] Noreen Herring NP 12/23/2023 Telephone [place] [address] [place] [phone] Galo Monteiro MD Med Management from [...] 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 ([facility]) 02/12/2012 Overview (05/16/2016): Hypertension Diabetes mellitus 02/12/2012 [...] on file Legal Sex Female 7:12 PM IRONER SOCK Gender Identity Not on file Sexual Orientation Not on file Last Filed Vital Signs Vital Sign Reading Time Taken Comments Blood Pressure 110/62 02/10/2024 3:47 PM IRONER SOCK Pulse 92 02/10/2024 3:47 PM IRONER SOCK Temperature - - Respiratory Rate 15 12/08/2019 9:51 AM CDT Oxygen Saturation 94% 02/10/2024 3:47 PM IRONER SOCK Inhaled Oxygen Concentration - - Weight 93 kg (205 lb) 02/10/2024 3:47 PM IRONER SOCK Height 160 cm (5' 3 ) 02/10/2024 3:47 PM IRONER SOCK Body Mass Index 36.31 02/10/2024 3:47 PM IRONER SOCK Plan of Treatment Not on file Procedures Procedure Name Priority Date/Time Associated Diagnosis Comments BASIC METABOLIC PANEL Routine 02/01/2024 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) CARDIOLOGY DOCUMENT SCAN Routine 12/23/2023 3:03 PM IRONER SOCK CARDIOLOGY DOCUMENT SCAN Routine 12/22/2023 5:00 PM IRONER SOCK CARDIOLOGY DOCUMENT SCAN Routine 12/21/2023 4:54 PM IRONER SOCK CARDIOLOGY DOCUMENT SCAN Routine 12/20/2023 4:38 PM IRONER SOCK LIPID PANEL Routine 02/01/2019 HEMOGLOBIN A1C Routine [...] N/A EXTERNAL LAB SCRIBED eGFR in NonAfrican Macedonian 30 > or = 60 EXTERNAL LAB Blood 02/01/2024 us Ene Tolentino NP LAB BLOOD ORDERABLES [place] Result EXTERNAL LAB * Cardiology Document Scan (12/23/2023 3:03 PM IRONER SOCK) Anatomical Region Laterality Modality Other us Noreen Herring NP CV CARDIAC SERVICES PROCEDUR ES Final Result * Cardiology Document Scan (12/22/2023 5:00 PM IRONER SOCK) Anatomical Region Laterality Modality Other Galo Monteiro MD CV CARDIAC SERVICES PROCE DURES Final Result * Cardiology Document Scan (12/21/2023 4:54 PM IRONER SOCK) Anatomical Region Laterality Modality Other Noreen Herring NP CV CARDIAC SERVICES PROCEDUR ES Final Result * Cardiology Document Scan (12/20/2023 4:38 PM IRONER SOCK) Anatomical Region Laterality Modality Other Noreen Herring NP CV CARDIAC SERVICES PROCEDUR ES Final Result * Lipid panel (02/01/2019) SCRIBED Cholesterol, Total 69 <200 EXTERNAL LAB SCRIBED HDL 36 >40 EXTERNAL LAB SCRIBED LDL 20 <100 EXTERNAL LAB SCRIBED Triglycerides 64 <150 EXTERNAL LAB Blood specimen (specimen) Result [facility] Historical Provider LAB BLOOD ORDERABLES Edit ed Result - Final EXTERNAL LAB * Hemoglobin A1c (03/28/2018) Blood specimen (specimen) Result [facility] Historical Provider LAB BLOOD ORDERABLES [place] Result from Last 3 Months or Most Recently Relevant to Health Maintenance Insurance MEDICARE [facility] MEDICARE [place]CIAL [place] , [place] [id number] [place] [address] , [place] [address] MEDICARE [facility] Care Teams Lead Pl Sql Developer Relationship Specialty Start Date End Date Gabriel Jurado MD [address] [place] [address] PCP - General Family Medicine 05/12/21 Gabriel Jurado MD [address] [place] [address] Family Medicine 05/12/21
--- OUTSIDE RECORDS SUMMARY | 2024-03-05 13:27 | XMS_ITS | Encounter Summary ---
Author Organization [employer] [facility] Address [address] [place] [address] Care Team Providers Care Women'S Apparel Salesperson Name Role Phone Gabriel Jurado MD Primary Care Provider [phone] Encounter Details Date Type Department Care Team (Late st Contact Info) Description 08/12/2017 Lab Requisition [facility] Laboratory Services [address] [address] Geovani De Jesus MD [address] [place] [address] Encounter for screening for diseases of the blood and blood-forming organs and certain disorders involving the immune mechanism Social History Tobacco Use Types Packs/Day Years [...] Associated Diagnosis Comments CBC WITH DIFFERENTIAL Routine 08/12/2017 6:25 AM CDT Encounter for screening for diseases of the blood and blood-forming organs and certain disorders involving the immune mechanism VITAMIN D 25 HYDROXY Routine 08/12/2017 6:25 AM CDT Encounter for screening for diseases of the blood and blood-forming organs and certain disorders involving the immune mechanism TSH Routine 08/12/2017 6:25 AM CDT Encounter for screening for diseases of the blood and blood-forming organs and certain disorders involving the immune mechanism T4 FREE Routine 08/12/2017 6:25 AM CDT Encounter for screening for diseases of the blood and blood-forming organs and certain disorders involving the immune mechanism BRAIN NATRIURETIC PEPTIDE, BNP OR PROBNP Routine 08/12/2017 6:25 AM CDT Encounter for screening for diseases of the blood and blood-forming organs and certain disorders involving the immune mechanism HEMOGLOBIN A1C Routine 08/12/2017 6:25 AM CDT Encounter for screening for diseases of the blood and blood-forming organs and certain disorders involving the immune mechanism VITAMIN B12 LEVEL Routine 08/12/2017 6:2 5 AM CDT Encounter for screening for diseases of the blood and blood-forming organs and certain disorders involving the immune mechanism LIPID PANEL Routine 08/12/2017 6:25 AM CDT Encounter for screening for diseases of the blood and blood-forming organs and certain disorders involving the immune mechanism COMPREHENSIVE METABOLIC PANEL Routine 08/12/2017 6:25 AM CDT Encounter for screening for diseases of the blood and blood-forming organs and certain disorders involving the immune mechanism documented in this encounter Results * TSH (08/12/2017 6:25 AM CDT) TSH 2.77 0.27 - 4.20 uIU/mL 08/12/2017 10:44 AM CDT [facility] [employer] [facility] Blood Venipuncture / Unknown 08/12/2017 6:25 AM CDT 08/12/2017 8:53 AM CDT us Geovani De Jesus MD CHEMISTRY ORDERABLES Final R esult [facility] [employer] [facility] CLIA# [id number] [address] [address] [facility] [place] [address] * (ABNORMAL) VITAMIN B12 LEVEL (08/12/2017 6:25 AM CDT) Pathologist [facility] VITAMIN B12 >1,800(H) 232-1,245 pg/mL 08/12/2017 10:57 AM CDT [facility] Comment: It has been reported that between 5 to 10% of patients with values between 200 and 400 pg/mL may experience neuropsychiatric and hematologic abnormalities due to occult B12 deficiency. ??Less than 1% of patients with values above 400 pg/mL will have symptoms. Effective February 17, 2017, assay updated with new reference ranges specific to [place] population. Blood Venipuncture / Unknown 08/12/2017 6:25 AM CDT 08/12/2017 8:53 AM CDT Geovani De Jesus MD CHEMISTRY ORDERABLES Final R esult Performing Organization Address [facility] Co pr Phone Number [facility] CLIA# [id number] [address] [place] [address] * (ABNORMAL) VITAMIN D 25 HYDROXY (08/12/2017 6:25 AM CDT) [facility] VITAMIN D TOTAL (25OH) 9(L) 30 - 100 ng/mL 08/12/2017 10:52 AM CDT [facility] Blood Venipuncture / Unknown 08/12/2017 6:25 AM CDT 08/12/2017 8:53 AM CDT Narrative [facility] - 08/12/2017 10:52 AM CDT Interpretive Data Chart: Deficient: 0 - 20 ng/mL Insufficient: 21 - 29 ng/mL Sufficient: 30 - 100 ng/mL Increased Risk of Hypercalciuria: >100 ng/mL Toxic: >150 ng/mL Geovani De Jesus MD CHEMISTRY ORDERABLES Final R esult Performing Organization Address City/[facility] Co de Phone Number [facility] [id number] [address] [place] [address] * T4 FREE (08/12/2017 6:25 AM CDT) T4 FREE 1.70 0.90 - 1.70 ng/dL 08/12/2017 10:44 AM CDT [facility] [employer] [facility] Blood Venipuncture / Unknown 08/12/2017 6:25 AM CDT 08/12/2017 8:53 AM CDT Geovani De Jesus MD CHEMISTRY ORDERABLES Final R esult [facility] [employer] [facility] CLIA# [id number] [address], [place] [address] * (ABNORMAL) HEMOGLOBIN A1C (08/12/2017 6:25 AM CDT) Pathologist [facility] HEMOGLOBIN A1C 9.1(H) 4.0 - 6.0 % 08/12/2017 11:29 AM CDT [facility] EST. AVG GLUCOSE, A1C 214 mg/dL 08/12/2017 11:29 AM CDT [facility] [employer] [facility] Blood Venipuncture / Unknown 08/12/2017 6:25 AM CDT 08/12/2017 8:53 AM CDT Narrative [facility] [employer] [facility] - 08/12/2017 11:29 AM CDT HGB A1C INTERPRETATION NORMAL: ? <5.7% PRE-DIABETES: 5.7 - 6.4% DIABETES: ? 6.5% OR GREATER Geovani De Jesus MD CHEMISTRY ORDERABLES Final R esult [facility] [employer] [facility] CLIA# [id number] [address] [place], [place] [address] * (ABNORMAL) CBC WITH DIFFERENTIAL (08/12/2017 6:25 AM CDT) WBC 8.9 4.0 - 9.8 K/uL 08/12/2017 10:32 AM CDT [facility] RBC 3.89(L) 3.90 - 4.90 M/uL 08/12/2017 10:32 AM CDT [employer] [facility]ATORY SERVICES - [facility] HEMOGLOBIN 8.3(L) 11.8 - 14.8 g/dL 08/12/2017 10:32 AM CDT [employer] [facility]ORY [facility] - [facility] HEMATOCRIT 27.6(L) 35.5 - 44.0 % 08/12/2017 10:32 AM CDT [employer] [facility]ORY SERVICES - [facility] MCV 71.0(L) 82.0 - 99.0 fL 08/12/2017 10:32 AM CDT [employer] [facility]ORY SERVICES - [facility] MCH 21.3(L) 27.2 - 32.6 pg 08/12/2017 10:32 AM CDT [employer] [facility] - [facility] MCHC 30.1(L) 31.5 - 35.5 g/dL 08/12/2017 10:32 AM [employer] [facility]ATORY SERVICES - [facility] RDW 16.8(H) 11.5 - 14.5 % 08/12/2017 10:32 AM [employer] [facility]ORY SERVICES - [facility] RDW-STDEV 42.8 37.1 - 48.7 fL 08/12/2017 10:32 AM [employer] [facility] - [facility] PLATELETS 368(H) 140 - 350 K/uL 08/12/2017 10:32 AM [employer] [facility]ORY SERVICES - [facility] MPV 9.4 9.3 - 12.4 fL 08/12/2017 10:32 AM [employer] [facility]ATORY SERVICES - . [place] NEUTROPHILS 55 % 08/12/2017 10:32 AM CDT [employer] [facility]ORY [facility] - . [place] LYMPHOCYTES 26 % 08/12/2017 10:32 AM CDT [employer] [facility]ATORY SERVICES - . [place] MONOCYTES 16 % 08/12/2017 10:32 AM CDT [employer] [facility] EOSINOPHILS 3 % 08/12/2017 10:32 AM CDT [employer] [facility]ATORY SERVICES - . [place] BASOPHILS 1 % 08/12/2017 10:32 AM CDT [employer] [facility]ORY [facility] - . [place] IMMATURE GRANULOCYTES 0 % 08/12/2017 10:32 AM CDT [employer] [facility] - [facility] NEUTROPHIL ABSOLUTE 4.84 1.90 - 7.00 K/uL 08/12/2017 10:32 AM CDT [facility] LABORATORY [facility] - . [facility] LYMPHOCYTE ABSOLUTE 2.34 0.70 - 4.50 K/uL 08/12/2017 10:32 AM CDT [facility] LABORATORY [facility] - . [place] MONOCYTE ABSOLUTE 1.38(H) 0.10 - 1.30 K/uL 08/12/2017 10:32 AM CDT [facility] LABORATORY [facility] EOSINOPHIL ABSOLUTE 0.24 0.00 - 0.70 K/uL 08/12/2017 10:32 AM CDT [facility] LABORATORY SERVICES [facility] BASOPHILS ABSOLUTE 0.05 0.00 - 0.20 K/uL 08/12/2017 10:32 AM CDT [facility] LABORATORY SERVICES - . [facility] IMMATURE GRANULOCYTES ABSOLUTE 0.04(H) 0.00 - 0.03 K/uL 08/12/2017 10:32 AM T [facility] [employer] [facility] Blood Venipuncture / Unknown 08/12/2017 6:25 AM CDT 08/12/2017 8:53 AM CDT Geovani De Jesus MD HEMATOLOGY ORDERABLES Final Result [facility] [employer] [facility]# [id number] [address] [facility] [place] [address] * (ABNORMAL) BRAIN NATRIURETIC PEPTIDE, BNP OR PROBNP (08/12/2017 6:25 AM CDT) PROBNP, N TERMINAL 5,191(H) <449 pg/mL 08/12/2017 10:44 AM CDT [facility] [employer] [facility] Comment: Reference values for screening purposes based on climatologist's recommendation: Patients less than 75 years: <125 pg/mL Patients 75 years and older: <450 pg/mL Reference values for determination of acute congestive heart failure in dyspneic patients based on PRIDE study (Am J Cardiol 2005;95:948): Patients less than 50 years: <450 pg/mL (Negative predictive value= 99%) Patients 50 years and older: <900 pg/mL (Negative predictive value= 92%) Rule out cutpoint, all ages: <300 pg/mL (Negative predictive value= 99%) Blood Venipuncture / Unknown 08/12/2017 6:25 AM CDT 08/12/2017 8:53 AM CDT Geovani De Jesus MD CHEMISTRY ORDERABLES Final R esult [facility]ATORY SERVICES - [facility]# [id number] [address] [facility] [place] [address] * LIPID PANEL (08/12/2017 6:25 AM CDT) CHOLESTEROL 93 <200 mg/dL 08/12/2017 10:42 AM CDT [employer] [facility] TRIGLYCERIDE 59 <150 mg/dL 08/12/2017 10:42 AM CDT [facility] [employer] [facility] HDL 43 40 - 59 mg/dL 08/12/2017 10:42 AM CDT [employer] [facility] LDL CALCULATED 38 <100 mg/dL 08/12/2017 10:42 AM CDT [employer] [facility] NON-HDL CHOLESTEROL 50 <130 mg/dL 08/12/2017 10:42 AM CDT [employer] [facility] Blood Venipuncture / Unknown 08/12/2017 6:25 AM CDT 08/12/2017 8:53 AM CDT Narrative [employer] [employer] SERVICES - . [place] - 08/12/2017 10:42 AM CDT TOTAL CHOLESTEROL ??mg/dL ??Desirable <200 ??Borderline high 200-239 ??High >=240 TRIGLYCERIDES ??mg/dL ??Normal <150 ??Borderline high 150-199 ??High 200-499 ??Very high >=500 HDL CHOLESTEROL ??mg/dL ??Low <40 ??Normal 40-59 ??Desirable >=60 NON HDL CHOLESTEROL mg/dL ??Optimal <130 ??Near Optimal 130-159 ??Borderline High 160-189 ??Very High >=190 Calculated LDL mg/dL ??Optimal <100 ??Near Optimal 100-129 ??Borderline High 130-159 ??High 160-189 ??Very High >=190 ATPIII Guidelines Reference Ranges for Lipid Panels (NCEP/AMA) us Geovani De Jesus MD CHEMISTRY ORDERABLES Final R esult [facility] LABORATORY SERVICES - [facility]# [id number] [address] [place] [address] * (ABNORMAL) COMPREHENSIVE METABOLIC PANEL (08/12/2017 6:25 AM CDT) Pathologist [facility] SODIUM 141 136 - 145 mmol/L 08/12/2017 10:53 AM T [facility] LABORATORY SERVICES - . [place] POTASSIUM 2.8(L) 3.5 - 5.0 mmol/L 08/12/2017 10:[address] [facility] [employer] LABORATORY SERVICES - [facility] CHLORIDE 94(L) 98 - 107 mmol/L 08/12/2017 10:[address] [facility] [employer] LABORATORY SERVICES - . [place] CO2 29 22 - 29 mmol/L 08/12/2017 10:[address] [facility] [employer] LABORATORY SERVICES - . [facility] CALCIUM 8.9 8.6 - 10.2 mg/dL 08/12/2017 10:53 AM T [facility] LABORATORY SERVICES - . [place] BUN 46(H) 8 - 23 mg/dL 08/12/2017 10:53 AM T [facility] LABORATORY SERVICES - . [facility] CREATININE 1.94(H) 0.51 - 0.95 mg/dL 08/12/2017 10:53 AM T [employer] LABORATORY SERVICES - . [place] Comment: The GFR result is not clinically significant on patients <18 or >70 years of age. GLUCOSE 227(H) 74 - 99 mg/dL 08/12/2017 10:53 AM T [employer] LABORATORY SERVICES - . [place] TOTAL PROTEIN 7.0 6.7 - 8.6 g/dL 08/12/2017 10:53 AM T [employer] LABORATORY SERVICES - . [place] ALBUMIN 3.4(L) 3.5 - 5.2 g/dL 08/12/2017 10:53 AM T [employer] LABORATORY SERVICES - . [place] BILIRUBIN TOTAL 0.5 0.2 - 1.1 mg/dL 08/12/2017 10:[address] [facility] [employer] LABORATORY SERVICES - . [place] ALKALINE PHOSPHATASE 91 35 - 104 U/L 08/12/2017 10:53 AM [facility] AST 8 <33 U/L 08/12/2017 10:53 AM [facility] ALT 5 <34 U/L 08/12/2017 10:53 AM [facility] GFR 25 mL/min/1.7 3 sq meter 08/12/2017 10:53 AM [facility] Comment: eGFR has not been validated [...] result. GFR, 30 mL/min/1.7 3 sq meter 08/12/2017 10:53 AM [facility] ANION GAP 18(H) 8 - 16 mmol/L 08/12/2017 10:53 AM [facility] Blood Venipuncture / Unknown 08/12/2017 6:25 AM CDT 08/12/2017 8:53 AM CDT Narrative [facility] LABORATORY [facility] - 08/12/2017 10:53 AM CDT Samples containing indocyanine green cause interferences on Total and/or Direct Bilirubin and must not be measured. us Geovani De Jesus MD CHEMISTRY ORDERABLES Final R esult [facility] [employer] [facility] [id number] [address] [facility] [address] [place] [address] documented in this encounter Visit Diagnoses Diagnosis Encounter for screening for diseases of the blood and blood-forming organs and certain disorders involving the immune mechanism documented in this encounter Care Teams Women'S Apparel Salesperson Relationship Specialty Start Date End Date Gabriel Jurado MD [address] [place] [phone] PCP - General Family Practice 04/04/19 documented as of this encounter
--- OUTSIDE RECORDS SUMMARY | 2024-03-05 13:28 | XMS_ITS | Encounter Summary ---
Author Organization [employer] [facility] Address [address] [place] [address] Care Team Providers Care Concrete Mixer Truck Driver Name Role Phone Gabriel Jurado MD Primary Care Provider [phone] Encounter Details Date Type Department Care Team (Late st Contact Info) Description 08/19/2017 Lab Requisition [facility] Laboratory Services [address] [facility] [address] [place] [address] Geovani De Jesus MD [address] [place] [address] Chronic kidney disease, stage III [...] * PHOSPHORUS (08/19/2017 6:19 AM CDT) Pathologist [facility] PHOSPHORUS 4.2 2.5 - 4.5 mg/dL 08/19/2017 11:06 AM CDT [facility]AT[facility] Blood Venipuncture / Unknown 08/19/2017 6:19 AM CDT 08/19/2017 9:28 AM CDT Geovani De Jesus MD CHEMISTRY ORDERABLES Final R esult Performing Organization Address City/[facility]/ZIP Co de Phone Number [facility] CLIA# [id number] [address] [place] [address] * (ABNORMAL) MAGNESIUM LEVEL (08/19/2017 6:19 AM CDT) [facility] MAGNESIUM 1.4(L) 1.6 - 2.4 mg/dL 08/19/2017 11:06 AM CDT [facility] [employer] [facility] Blood Venipuncture / Unknown 08/19/2017 6:19 AM CDT 08/19/2017 9:28 AM CDT Geovani De Jesus MD CHEMISTRY ORDERABLES Final R esult [facility]# [id number] [address] [place] [address] * (ABNORMAL) COMPREHENSIVE METABOLIC PANEL (08/19/2017 6:19 AM CDT) Pathologist [facility] SODIUM 140 136 - 145 mmol/L 08/19/2017 11:07 AM CDT [facility] [employer] [facility] POTASSIUM 3.9 3.5 - 5.0 mmol/L 08/19/2017 11:07 AM CDT [facility] LABORATORY [facility] CHLORIDE 95(L) 98 - 107 mmol/L 08/19/2017 11:07 AM [facility] [employer] LABORATORY SERVICES - [facility] CO2 27 22 - 29 mmol/L 08/19/2017 11:07 AM [employer] [facility] CALCIUM 9.0 8.6 - 10.2 mg/dL 08/19/2017 11:07 AM [facility] [employer] [facility] BUN 57(H) 8 - 23 mg/dL 08/19/2017 11:07 AM [employer] [facility] CREATININE 2.12(H) 0.51 - 0.95 mg/dL 08/19/2017 11:07 AM [employer] LABORATORY SERVICES - [facility] Comment: Significant change from prior result, correlate clinically and redraw if necessary. The GFR result is not clinically significant on patients <18 or >70 years of age. GLUCOSE 173(H) 74 - 99 mg/dL 08/19/2017 11:07 AM [employer] LABORATORY SERVICES - [facility] TOTAL PROTEIN 7.2 6.7 - 8.6 g/dL 08/19/2017 11:07 AM [employer] [facility] ALBUMIN 3.5 3.5 - 5.2 g/dL 08/19/2017 11:07 AM [employer] [facility] BILIRUBIN TOTAL 0.5 0.2 - 1.1 mg/dL 08/19/2017 11:07 AM [employer] [facility] ALKALINE PHOSPHATASE 92 35 - 104 U/L 08/19/2017 11:07 AM [employer] [facility] AST 13 <33 U/L 08/19/2017 11:07 AM [employer] [facility] ALT 9 <34 U/L 08/19/2017 11:07 AM [employer] [facility] GFR 22 mL/min/1.7 3 sq meter 08/19/2017 11:07 AM [employer] [facility] Comment: eGFR has not been validated [...] 3 sq meter 08/19/2017 11:07 AM T [facility] LABORATORY [facility] ANION GAP 18(H) 8 - 16 mmol/L 08/19/2017 11:07 AM T [facility] LABORATORY [facility] Blood Venipuncture / Unknown 08/19/2017 6:19 AM CDT 08/19/2017 9:28 AM CDT Narrative [facility] LABORATORY [facility] - 08/19/2017 11:07 AM CDT Samples containing indocyanine green cause interferences on Total and/or Direct Bilirubin and must not be measured. us Geovani De Jesus MD CHEMISTRY ORDERABLES Final R esult [facility] [employer] [facility]# [id number] [address] 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
--- OUTSIDE RECORDS SUMMARY | 2024-03-05 13:29 | XMS_ITS | Encounter Summary ---
Author Organization [employer] Address [address] [place] [address] Care Team Providers Care Manager File Name Role Phone Gabriel Jurado MD Primary Care Provider Encounter Details Date Type Department Care Team (Late st Contact Info) Description 08/18/2017 Lab Requisition [employer] Laboratory Services [address] [place] [address] Geovani De Jesus MD [address] [place] [address] Encounter for general adult medical [...] - 4.5 mg/dL 08/18/2017 10:36 AM CDT [facility] [employer] [facility] Blood Venipuncture / Unknown 08/18/2017 6:19 AM CDT 08/18/2017 9:06 AM CDT Geovani De Jesus MD CHEMISTRY ORDERABLES Final R esult [facility] [employer] [facility] CLIA# [id number] [address] [place] [address] * (ABNORMAL) MAGNESIUM LEVEL (08/18/2017 6:19 AM CDT) MAGNESIUM 1.4(L) 1.6 - 2.4 mg/dL 08/18/2017 10:36 AM CDT [facility] Blood Venipuncture / Unknown 08/18/2017 6:19 AM CDT 08/18/2017 9:06 AM CDT Geovani De Jesus MD CHEMISTRY ORDERABLES Final R esult Performing Organization Address City/[facility]/ZIP Co de Phone Number [facility] [employer] [facility] CLIA# [id number] [address] [place] [address] documented in this encounter Visit Diagnoses Diagnosis Encounter for general adult medical examination without abnormal findings Routine general medical examination at a health care facility documented in this encounter Care Teams Manager File Relationship Specialty Start Date End Date Gabriel Jurado MD [address] [facility] [address] [place] [phone] PCP - General Family Practice 04/04/19 documented as of this encounter
--- OUTSIDE RECORDS SUMMARY | 2024-03-05 13:29 | XMS_ITS | Encounter Summary ---
Author Organization [facility] Address [address] [place] [address] Care Team Providers Care Catalyst Impregnator Name Role Phone Gabriel Jurado MD Primary Care Provider Encounter Details Date Type Department Care Team (Late st Contact Info) Description 08/20/2017 Lab Requisition [facility] Laboratory Services [address] [place] [address] Geovani De Jesus MD [address] [place] [address] Anemia Social History Tobacco Use Types Packs/Day [...] unspecified documented in this encounter Care Teams Catalyst Impregnator Relationship Specialty Start Date End Date Gabriel Jurado MD [address] [place] [address] PCP - General Family Practice 04/04/19 documented as of this encounter
--- OUTSIDE RECORDS SUMMARY | 2024-03-05 13:29 | XMS_ITS | Encounter Summary ---
Author Organization [employer] [facility] Address [address] [place] [address] Care Team Providers Care Machine Specialist Name Role Phone Gabriel Jurado MD Primary Care Provider Encounter Details Date Type Department Care Team (Late st Contact Info) Description 08/24/2017 Lab Requisition [facility] Laboratory Services [address] [place] [address] Geovani De Jesus MD [address] [place] [address] Encounter for general adult medical examination without [...] facility documented in this encounter Care Teams Machine Specialist Relationship Specialty Start Date End Date Gabriel Jurado MD [address] [place] [address] PCP - General Family Practice 04/04/19 documented as of this encounter
--- OUTSIDE RECORDS SUMMARY | 2024-03-05 13:29 | XMS_ITS | Clinical Summary ---
Author Organization [facility] [address] [place] [address] Phone Care Team Providers Care Die Holder Name Role Phone Gabriel Jurado MD Primary Care Provider [phone] Allergies Active Allergy Reactions Criticality Noted Date Comments Adhes. Mgvk-Ixdf-Rwvzyxqfpmho Hives 04/11/2019 Adhesive Tape-Silicones Hives 04/04/2019 Diazepam [...] vit A/C/E ac/ZnOx/cupric oxide (VIT A-VIT C-VIT G-[id number] ORAL) Take by mouth. Activ e potassium chloride (KLOR-CON) 10 mEq Extended Release tablet Take 40 mEq by mouth. 9 Active Insulin [place], Disposable, 31 gauge x 5/16 Needle USED [...] Comments Blood Pressure 95/70 04/11/2019 9:57 AM RADIATOR SPECIALIST 1ST BP TAKE 85/64 HR 109 Pulse 101 04/11/2019 9:57 AM RADIATOR SPECIALIST Temperature 36.4 ??C (97.6 ??F) 04/11/2019 9 :57 AM RADIATOR SPECIALIST Respiratory Rate - - Oxygen Saturation 94% 04/11/2019 9:5 7 AM RADIATOR SPECIALIST Inhaled Oxygen Concentration - - Weight 90.5 kg (199 lb 8 oz) 04/11/2019 9:57 AM RADIATOR SPECIALIST Height 160 cm (5' 3 ) 04/11/2019 9:57 AM RADIATOR SPECIALIST Body Mass Index 35.34 04/11/2019 9:57 AM RADIATOR SPECIALIST Plan of Treatment Health Maintenance Due Date Last Done Comments DTAP/TDAP/TD VACCINES (1 - Tdap) 1954 ZOSTER VACCINE (1 of 2) 1984 OSTEOPOROSIS SCREENING 05/29/1999 PNEUMOCOCCAL VACCINE 65+ YEARS (2 of 2 - PCV) 07/19/19 05 07/19/2003 RSV VACCINE (60+ or ) (1 - 1-dose 75+ series) 2009 INFLUENZA VACCINE (#1) 2023 Care Teams Die Holder Relationship Specialty Start Date End Date Gabriel Jurado MD [address] [facility] [address] [place] [id number] PCP - General Family Practice 04/04/19
[2024-03-05 13:58] VITALS: BMI 78.0
[2024-03-05] MEDS: HYDROmorphone HCL/PF (*CRX) 50 MG in SODIUM CHLORIDE 0.9% IV 95 ML IV CONT (14:22)
[2024-03-05] MEDS: PROMETHAZINE HCL 25 MG/ML AMPUL 12.5 MG IV PUSH ×3 (14:23→23:11)
[2024-03-05] MEDS: HYDROmorphone HCL INJ (*CRX) 1 MG/ML SYR 0.5 MG IV PUSH (14:24)
--- NOTE | 2024-03-05 15:19 | PM.IMPN ---
Progress Note: A&P Assessment and Plan (1) Diverticulitis: Code(s): K57.92 - Diverticulitis of intestine, part unspecified, without perforation or abscess without bleeding Status: Acute Assessment and Plan: Acute (2) Acute on chronic renal failure: Qualifiers: Acute renal failure type: unspecified Chronic kidney disease stage: stage 4 (GFR 15-29) Qualified Code(s): N17.9 - Acute kidney failure, unspecified; N18.4 - Chronic kidney disease, stage 4 (severe) Code(s): N17.9 - Acute kidney failure, unspecified; N18.9 - Chronic kidney disease, unspecified Status: Acute Assessment and Plan: Acute (3) Type 2 diabetes mellitus with hyperglycemia, with long-term current use of insulin: Code(s): E11.65 - Type 2 diabetes mellitus with hyperglycemia; Z79.4 - longterm (current) use of insulin Status: Chronic Assessment and Plan: Chronic (4) Chronic atrial fibrillation: Code(s): I48.20 - Chronic atrial fibrillation, unspecified Status: Acute Assessment and Plan: Chronic (5) Hypertensive heart disease with heart failure: Code(s): I11.0 - Hypertensive heart disease with heart failure Status: Acute Assessment and Plan: Chronic (6) Chronic anticoagulation: Code(s): Z79.01 - longterm (current) use of anticoagulants Status: Acute Assessment and Plan: Chronic (7) Anemia: Qualifiers: Anemia type: unspecified type Qualified Code(s): D64.9 - Anemia, unspecified Code(s): D64.9 - Anemia, unspecified Status: Acute Assessment and Plan: Chronic Plan -Diverticulitis: -UTI: -acute kidney injury on chronic kidney disease: -Atrial fibrillation: -Heart failure with reduced ejection fraction: -Insulin-dependent diabetes mellitus type 2: -Venous disease: -hypertension: -history of DVT: -chronic anticoagulation: -severe obstructive sleep apnea: -Karlee degeneration: -Patient placed on comfort measures per family wishes. -antibiotics and chronic pain medications discontinued per patient family wishes. -p.r.n. IV pain and anxiety medication. -provide patient and family support. -hospice consulted. Time Spent With Patient Time with patient: 15 - 25 minutes Subjective Date/time seen: 03/05/24 15:19 Patient confused and lethargic on bedrest with son bedside. Son states they discussed as a family and with the patient too that they stop all the medications and place the patient on comfort care. Interval history: Patient lethargic and confused on bedrest. Review of Systems Review of Systems: ROS unobtainable: Yes unobtainable due to mental status (Lethargic) Exam Narrative: HEENT: atraumatic, dry mucous membranes. Neck: Supple Lungs: Coarse bilaterally. Heart: Irregularly irregular, no murmurs. Abdomen: Soft, nondistended,positive bowel sounds. Extremities: 2+ edema bilateral lower extremities, 3+ edema bilateral feet. Neuro: Lethargic and confused, no focal neuro deficits noted. Objective Data Vital Signs Vital Signs: Vital Signs - 24 hr 03/05/24 13:58 Oxygen Delivery Nasal Cannula Oxygen Flow Rate 2 Meds/Results Medications: Active Medications Generic Name Dose Route Start Last Admin Trade Name Freq PRN Reason Stop Dose Admin Diazepam 5 mg 03/05/24 14:05 Diazepam Inj (*Crx) 10 Mg/2 Ml Syringe IV PUSH Q6H PRN RESTLESS,ANXIETY,SOB,AGITATION Hydromorphone HCl 0.5 mg 03/05/24 14:04 03/05/24 14:24 Hydromorphone Hcl Inj (*Crx) 1 Mg/Ml Syr IV PUSH 0.5 mg Q2H PRN Administration Pain Hydromorphone HCl 50 mg/ 100 mls @ 0.5 mls/hr 03/05/24 14:30 03/05/24 14:22 Sodium Chloride IV CONT 0.25 mg/hr .Q24H LIO 0.5 mls/hr Administration 0.25 MG/HR Quality If No VTE Prophylaxis Answer both mechanical and pharmacologic: Reason no mechanical VTE proph: medical contraindication (Comfort care measures) Hospitalist MIPS Advance Care Plan I have confirmed that the patient's Advanced Care Plan is present, code status is documented, or surrogate decision maker is listed in patient medical record.: Yes Medication Reconciliation I have utilized all available resources to obtain, update and review the patients current medications (includes all prescriptions, OTC, herbals, cannabis, and nutritional supplements).: Yes
--- NOTE | 2024-03-05 15:29 | P.HP_ITS ---
H&P: HPI History of Present Illness Date/Time: 03/05/24 15:29 Chief Complaint: Uncontrolled pain Narrative: Was admitted March 01 chronic kidney failure and in spite of antibiotics IV fluids bowel rest she continued to be in his were multiple chronic illnesses her poor quality of life and her uncontrolled pain she wished to transition to hospice care for. Because of her uncontrolled pain in spite IV morphine while acute care qualify for inpatient hospice. She also experience urinary retention required Wilkerson catheter. She has no chest pain. No shortness of breath at rest. No swelling. No focal weakness. Does have generalized weakness and fatigue. Review of Systems Review of Systems: All systems reviewed & are unremarkable except as noted in HPI and below PMFSH Past Medical History Medical History Tubulovillous adenoma of colon WIN (iron deficiency anemia) CKD (chronic kidney disease) stage 4, GFR 15-29 ml/min With baseline creatinine between 1.6 and 1.9 Right wrist pain Fracture of triquetrum Heart failure with reduced ejection fraction echocardiogram in 11/2021 showed moderate concentric LVH, moderate global left ventricular systolic dysfunction with an estimated ejection fraction of 30 to 35%, severe biatrial enlargement, and mild pulmonary hypertension Insulin dependent type 2 diabetes mellitus Primary stress urinary incontinence Colon cancer Transient ischemic attack Iron deficiency anemia Gastroesophageal reflux disease Hypertension Deep venous thrombosis Venous stasis ulcers Anxiety Peripheral neuropathy Macular degeneration Chronic atrial fibrillation Chronic anticoagulation Severe obstructive sleep apnea intolerant to CPAP Surgical History Surgical History History of right hemicolectomy (07/2019) right colon cancer History of bilateral cataract extraction History of hysterectomy History of cholecystectomy Family History Family History Mother Family history of respiratory disorder, Onset Age: 21 Other Family history of cardiovascular disease Social History Social History Social History: Healthcare power of res counselor: Katelyn Bird, daughter. Code status: DNR/DNI Smoking status: Never smoker Second hand tobacco smoke exposure: No Alcohol intake: never Substance use: never Substance use type: does not use Do You Feel Safe in your Home?: Yes Lack of Transportation: No Lack of Food: Never True Current Housing: I Have Housing Concerned About Future Housing: No Difficulty Paying Gas/Electric Bills: No Difficulty Paying for Meds: No Currently Unemployed: No Education: High School Diploma/GED Difficulty w/ Childcare or Family Care: No Additional living arrangements comments: . Lives in independent living at [facility]. Ambulates with a walker. Spiritual care concerns: No Agree to blood products: Yes Meds Home Medications and Allergies Home Medications ?Medication ?Instructions ?Recorded ?Confirmed ?Type loratadine 10 mg tablet 10 mg PO DAILY 01/11/19 02/29/24 History magnesium oxide 400 mg PO BID 03/14/19 02/29/24 History vit C 250 mg-vit E 90 mg-zinc 40 1 tablet PO BID 03/18/19 02/29/24 History mg-copper 1 [id number]-[id number] capsule (PreserVision AREDS-2) apixaban 2.5 mg tablet (Eliquis) 2.5 mg PO BID 08/28/19 02/29/24 History insulin glargine U-300 conc 300 10 unit (0.0333 mL) subcut DAILY 03/25/23 02/29/24 Rx unit/mL (1.5 mL) subcutaneous pen #6 mL (Toujeo SoloStar U-300 Insulin) pantoprazole 40 mg tablet,delayed 40 mg PO QAM #90 tabs 11/29/23 02/29/24 Rx release cholestyramine-aspartame 4 gram 4 g PO HS 12/19/23 02/29/24 History oral powder for susp in a packet (Cholestyramine Light) acetaminophen 325 mg capsule 650 mg PO Q6H PRN pain (scale 02/29/24 02/29/24 History score 1-3) furosemide 40 mg tablet 40 mg PO BID 02/29/24 02/29/24 History insulin lispro 100 unit/mL 3 unit subcut .COMPLEX 02/29/24 02/29/24 History subcutaneous pen (Humalog KwikPen (U-100) Insulin) metolazone 2.5 mg tablet 2.5 mg PO 4XW 02/29/24 02/29/24 History metoprolol succinate 200 mg 200 mg PO HS 02/29/24 02/29/24 History tablet,extended release 24 hr mupirocin 2 % topical ointment 1 applic topical DAILY 02/29/24 02/29/24 History nystatin 100,000 unit/gram topical 1 applic topical BID 02/29/24 02/29/24 History powder ondansetron 4 mg disintegrating 4 mg PO Q6H PRN nausea and vomiting 02/29/24 02/29/24 History tablet potassium chloride 20 mEq 40 meq PO .COMPLEX 02/29/24 02/29/24 History tablet,extended release(part/cryst) (Klor-Con M) triamcinolone acetonide 0.1 % 1 applic topical DAILY 02/29/24 02/29/24 History topical cream Allergies Allergy/AdvReac Type Severity Reaction Status Date / Time adhesive tape Allergy Unknown Rash Verified 02/25/24 11:32 cetirizine Allergy Unknown Swelling Verified 02/25/24 11:32 of Lip/Tongue/Throat diazepam Allergy Unknown Cough Verified 02/25/24 11:32 gabapentin Allergy Unknown Confusion Verified 02/25/24 11:32 levetiracetam Allergy Unknown Confusion Verified 02/25/24 11:32 levofloxacin Allergy Unknown Confusion Verified 02/25/24 11:32 pregabalin Allergy Unknown Confusion Verified 02/25/24 11:32 zolpidem Allergy Unknown Hallucinati Verified 02/25/24 11:32 ng sleep aids - all AdvReac Severe Hallucinati Uncoded 02/25/24 11:32 ng Vital Signs Vital Signs - 24 hr 03/05/24 13:58 Oxygen Delivery Nasal Cannula Oxygen Flow Rate 2 Exam Narrative: General elderly female lying in hospital bed with some grimacing and fidgeting Head normocephalic Eyes pupils equal round reactive light with sclerae nonicteric Oral mucosa pink and moist Neck without JVD Chest clear to auscultation Heart normal S1 and S2 with rate irregular and mildly tachycardic with no audible murmurs Abdomen protuberant but soft with hypo bowel sounds and diffuse tenderness but no rebound or guarding or mass Extremities without pitting edema Musculoskeletal without gross deformity visual inspection Neurologic cranial nerves symmetric to visual inspection Psychiatric alert oriented to person place and year, pleasant and cooperative Assessment and Plan Assessment and plan (1) Hospice care: Code(s): Z51.5 - Encounter for palliative care Status: Acute Assessment and Plan: * Meets inpatient hospice criteria due to requiring continuous IV hydromorphone for control of pain and restlessness * P.r.n. palliative regimen ordered * 03/05/2024 discussed care and prognosis with patient and family at bedside (2) Hypertension: Code(s): I10 - Essential (primary) hypertension Status: Acute (3) Heart failure with reduced ejection fraction: Code(s): I50.20 - Unspecified systolic (congestive) heart failure Status: Acute (4) Atrial fibrillation with rapid ventricular response: Code(s): I48.91 - Unspecified atrial fibrillation Status: Acute (5) Controlled diabetes mellitus: Code(s): E11.9 - Type 2 diabetes mellitus without complications Status: Acute (6) Diverticulitis: Code(s): K57.92 - Diverticulitis of intestine, part unspecified, without perforation or abscess without bleeding Status: Acute (7) Acute on chronic renal failure: Qualifiers: Acute renal failure type: unspecified Chronic kidney disease stage: stage 4 (GFR 15-29) Qualified Code(s): N17.9 - Acute kidney failure, unspec ified; N18.4 - Chronic kidney disease, stage 4 (severe) Code(s): N17.9 - Acute kidney failure, unspecified; N18.9 - Chronic kidney disease, unspecified Status: Acute (8) Chronic kidney disease, stage IV (severe): Code(s): N18.4 - Chronic kidney disease, stage 4 (severe) Status: Chronic (9) Urinary retention with incomplete bladder emptying: Code(s): R33.9 - Retention of urine, unspecified Status: Acute
[2024-03-05] MEDS: HYDROmorphone HCL INJ (*CRX) 1 MG/ML SYR IV PUSH ×2 (16:43→19:54)
--- NOTE | 2024-03-05 17:58 | PC.NURSE ---
Removed 1mg Dilaudid dose from Pyxis under order for 0.5mg Dilaudid q2hr. Before administering dose, Dr. Browning changed order to 1mg q1hr. Scanned and administered 1mg of dilaudid from dilaudid pulled originally for 0.5mg order. No waste present.
--- NOTE | 2024-03-05 20:03 | PC.NURSE ---
Call placed to Dr Browning related to family request for increase in pain medication in order to help pt with restless and to keep pain under control. New order received.
[2024-03-05] MEDS: ARTIFICIAL TEARS OPHTH SOLN 15 ML BOTTLE 1 DROP EACH EYE (23:21)
[2024-03-06] MEDS: PROMETHAZINE HCL 25 MG/ML AMPUL 12.5 MG IV PUSH ×5 (05:45→23:49)
[2024-03-06] MEDS: ARTIFICIAL TEARS OPHTH SOLN 15 ML BOTTLE 1 DROP EACH EYE ×3 (05:45→22:07)
[2024-03-06] MEDS: HYDROmorphone HCL INJ (*CRX) 1 MG/ML SYR IV PUSH (10:33)
[2024-03-06] MEDS: HYDROmorphone HCL INJ (*CRX) 1 MG/ML SYR 2 MG IV PUSH ×2 (11:50→14:27)
[2024-03-06] MEDS: PROCHLORPERAZINE EDISYLATE 10 MG/2 ML VIAL IV PUSH ×2 (14:27→22:35)
[2024-03-06] MEDS: GLYCOPYRROLATE INJ (*SP) 0.2 MG/ML VIAL 0.1 MG IV PUSH ×2 (14:27→23:48)
[2024-03-06 15:03] VITALS: PULSE 60; RESP 14
[2024-03-06] MEDS: HYDROmorphone HCL/PF (*CRX) 50 MG in SODIUM CHLORIDE 0.9% IV 95 ML IV CONT (15:03)
--- NOTE | 2024-03-06 16:49 | P.PNIM_ITS ---
Progress Note: A&P Assessment and Plan (1) Hospice care: Code(s): Z51.5 - Encounter for palliative care Status: Acute Assessment and Plan: * Meets inpatient hospice criteria due to requiring continuous IV hydromorphone for control of pain and restlessness * P.r.n. palliative regimen ordered * 03/05/2024 discussed care and prognosis with family at bedside * 03/06/2024 continues to meet inpatient hospice requirements due to escalating opioid requirements (2) Hypertension: Code(s): I10 - Essential (primary) hypertension Status: Acute (3) Heart failure with reduced ejection fraction: Code(s): I50.20 - Unspecified systolic (congestive) heart failure Status: Acute (4) Atrial fibrillation with rapid ventricular response: Code(s): I48.91 - Unspecified atrial fibrillation Status: Acute (5) Controlled diabetes mellitus: Code(s): E11.9 - Type 2 diabetes mellitus without complications Status: Acute (6) Diverticulitis: Code(s): K57.92 - Diverticulitis of intestine, part unspecified, without perforation or abscess without bleeding Status: Acute (7) Acute on chronic renal failure: Qualifiers: Acute renal failure type: unspecified Chronic kidney disease stage: stage 4 (GFR 15-29) Qualified Code(s): N17.9 - Acute kidney failure, unspecified; N18.4 - Chronic kidney disease, stage 4 (severe) Code(s): N17.9 - Acute kidney failure, unspecified; N18.9 - Chronic kidney disease, unspecified Status: Acute (8) Chronic kidney disease, stage IV (severe): Code(s): N18.4 - Chronic kidney disease, stage 4 (severe) Status: Chronic (9) Urinary retention with incomplete bladder emptying: Code(s): R33.9 - Retention of urine, unspecified Status: Acute Subjective Date/time seen: 03/06/24 16:49 Interval history: Required 3 adjustments in drip rate since admission. Very comfortable now. Family at bedside. Review of Systems Review of Systems: ROS unobtainable: Yes unobtainable due to medical condition Exam Narrative: General elderly female lying in hospital bed with some grimacing and fidgeting Head normocephalic Eyes pupils equal round reactive light with sclerae nonicteric Oral mucosa pink and moist Neck without JVD Chest clear to auscultation Heart normal S1 and S2 with rate irregular and mildly tachycardic with no audible murmurs Abdomen protuberant but soft with hypo bowel sounds and diffuse tenderness but no rebound or guarding or mass Extremities without pitting edema Musculoskeletal without gross deformity visual inspection Neurologic cranial nerves symmetric to visual inspection Psychiatric sleeping soundly, unresponsive to verbal or tactile stimuli Objective Data Vital Signs Vital Signs: Vital Signs - 24 hr 03/06/24 08:00 03/06/24 15:03 03/06/24 15:03 Pulse Rate 60 60 Respiratory Rate 14 14 Oxygen Delivery Nasal Cannula Oxygen Flow Rate 3 Intake/Output Intake/Output: Intake & Output 03/03/24 03/04/24 03/05/24 03/06/24 23:59 23:59 23:59 23:59 Intake Total 1 22.7 Balance 1 22.7 Meds/Results Medications: Active Medications Generic Name Dose Route Start Last Admin Trade Name Freq PRN Reason Stop Dose Admin Acetaminophen 650 mg 03/05/24 14:08 Acetaminophen 650 Mg Suppository RECTAL Q4H PRN Fever Artificial Tears 1 drop 03/05/24 14:00 03/06/24 14:35 Artificial Tears Ophth Soln 15 Ml Bottle EACH EYE 1 drop Q8HR LIO Administration Artificial Tears 1 drop 03/05/24 14:06 Artificial Tears Ophth Soln 15 Ml Bottle EACH EYE PRN PRN Dry Eye(s) Bisacodyl 10 mg 03/05/24 14:08 Bisacodyl 10 Mg Suppository RECTAL DAILY PRN Constipation Diazepam 5 mg 03/05/24 14:05 Diazepam Inj (*Crx) 10 Mg/2 Ml Syringe IV PUSH Q6H PRN RESTLESS,ANXIETY,SOB,AGITATION Glycopyrrolate 0.1 mg 03/05/24 14:07 03/06/24 14:27 Glycopyrrolate Inj (*Sp) 0.2 Mg/Ml Vial IV PUSH 0.1 mg Q4H PRN Administration INCREASED SECRETIONS Hydromorphone HCl 3 mg 03/06/24 14:42 Hydromorphone Hcl Inj (*Crx) 1 Mg/Ml Syr IV PUSH Q2H PRN Pain Hydromorphone HCl 50 mg/ 100 mls @ 3 mls/hr 03/05/24 14:30 03/06/24 15:03 Sodium Chloride IV CONT 1.5 mg/hr .Q24H LIO 3 mls/hr Administration Prochlorperazine Edisylate 10 mg 03/05/24 14:06 03/06/24 14:27 Prochlorperazine Edisylate 10 Mg/2 Ml Vial IV PUSH 10 mg Q4H PRN Administration Nausea And Vomiting Promethazine HCl 12.5 mg 03/05/24 14:05 03/06/24 14:29 Promethazine Hcl 25 Mg/Ml Ampul IV PUSH 12.5 mg Q4H PRN Administration Itching
[2024-03-06] MEDS: HYDROmorphone HCL INJ (*CRX) 1 MG/ML SYR 3 MG IV PUSH ×3 (17:38→21:56)
[2024-03-06 20:00] VITALS: PULSE 58; RESP 10
[2024-03-06 23:27] VITALS: PULSE 58; RESP 10
[2024-03-06] MEDS: LORazepam INJ (*CRX) 2 MG/ML VIAL 1 MG IV PUSH (23:51)
[2024-03-07] MEDS: HYDROmorphone HCL INJ (*CRX) 1 MG/ML SYR 4 MG IV PUSH ×2 (01:56→04:00)
[2024-03-07] MEDS: LORazepam INJ (*CRX) 2 MG/ML VIAL 1 MG IV PUSH ×4 (01:57→08:43)
[2024-03-07] MEDS: GLYCOPYRROLATE INJ (*SP) 0.2 MG/ML VIAL 0.1 MG IV PUSH ×2 (04:00→08:41)
[2024-03-07] MEDS: PROMETHAZINE HCL 25 MG/ML AMPUL 12.5 MG IV PUSH ×2 (04:00→08:39)
[2024-03-07] MEDS: HYDROmorphone HCL INJ (*CRX) 2 MG/ML VIAL 4 MG IV PUSH ×2 (06:09→08:42)
[2024-03-07] MEDS: ARTIFICIAL TEARS OPHTH SOLN 15 ML BOTTLE 1 DROP EACH EYE (06:10)
[2024-03-07] MEDS: PROCHLORPERAZINE EDISYLATE 10 MG/2 ML VIAL IV PUSH (08:39)
[2024-03-07 10:08] VITALS: PULSE 0; RESP 0
--- NOTE | 2024-03-07 10:10 | PC.NURSE ---
Patient family called this RN into room at 1008. Observed no vital signs of life. sas analyst notified.
--- NOTE | 2024-03-07 18:46 | P.DN_ITS ---
Discharge Summary Date and Time Date of : 03/07/24 Time of : 10:08 Provider Pronounced By: 2 RNs Name of First RN That Pronounced: Dawn Garcia Name of Second RN That Pronounced: Mayela Liao Probable Cause of Probable Cause of : Congestive heart failure Summary Hospital Course: Admitted to inpatient hospice service due to uncontrolled abdominal pain. Required multiple medication titration is to reach comfort and maintain comfort. Mrs. Salmeron peacefully on 03/07/2024. Additional Data Confirmation of as documented by pronouncing clinician: Pupillary Reflex, Palpable Pulses, Response to Stimuli, Heart Tones and Breath Sounds Name of Provider Notified: Dr. Browning Time Provider Notified: 10:15 Provider Requests Autopsy: No Family Requests Autopsy: Yes [facility] Architect Notified: Yes Date [facility] Notified of : 03/07/24 Time [facility] Notified of : 10:20
== END 2024-03-07 10:08 | disposition expired | DRG 951 ==
PROVIDERS: Admitting Provider Internal Medicine; PCP Family Medicine; Visit Provider Internal Medicine
DX: Z51.5 Encounter for palliative care (principal); I13.0 Hypertensive heart and chronic kidney disease with heart failure and stage 1 through stage 4 chronic kidney disease, or unspecified chronic kidney disease; N18.4 Chronic kidney disease, stage 4 (severe); I50.22 Chronic systolic (congestive) heart failure; K57.92 Diverticulitis of intestine, part unspecified, without perforation or abscess without bleeding; N17.9 Acute kidney failure, unspecified; D63.1 Anemia in chronic kidney disease; E11.22 Type 2 diabetes mellitus with diabetic chronic kidney disease; I48.91 Unspecified atrial fibrillation; R33.9 Retention of urine, unspecified; Z79.4 Long term (current) use of insulin; Z66 Do not resuscitate
CPT/HCPCS: A9270; J0780; J1171; J1596; J2060; J2550